=== PATIENT | female | born 1990 | race Caucasian/White ===

== ENCOUNTER → 2019-02-13 10:42 | Outpatient (CLI) | payer MEDICAID, SELFPAY ==
[2017-09-09 22:44] VITALS: BMI 16.8
== END ==
PROVIDERS: PCP Internal Medicine; Visit Provider Obstetrics & Gynecology
DX: R30.0 Dysuria (principal)
CPT/HCPCS: 87086

== ENCOUNTER → 2019-02-20 08:46 | Outpatient (CLI) | payer MEDICAID, SELFPAY ==
--- NOTE | 2019-02-20 08:48 | BI_ITS ---
MAMMOGRAPHY - BILATERAL DIAGNOSTIC REASON FOR EXAM: Female, 28 years old. Two-week history of right breast lumps. Tenderness. PERTINENT HISTORY: Non-contributory. TECHNIQUE: Digital bilateral breast jacqueline (3D mammographic acquisition) in the CC and MLO projections. 2-D mediolateral oblique (MLO) and craniocaudad (CC) views of both breasts were obtained. CAD: Full Field Digital Mammography with Computer Added Detection was performed. COMPARISON: None. Baseline examination. FINDINGS: Breast Composition: The breasts are extremely dense, which lowers the sensitivity of mammography. There is a 1.1 cm x 0.9 cm well-defined nodule in the central lateral aspect of the left breast. Correlation with ultrasound is recommended. With the patient's history of palpable abnormality in the right breast, correlation with ultrasound is recommended. No other significant abnormalities are identified. BI/DIAG MAMM W/CAD, BILAT IMPRESSION: 1.1 cm x 0.9 cm well-defined nodule in the central lateral aspect of the left breast. With the patient's history of palpable abnormalities in the right breast, correlation with bilateral breast ultrasound is recommended. ASSESSMENT CATEGORY: BIRADS Category 0: Incomplete. Need additional imaging evaluation. A letter regarding these results will be sent to the patient by the facility within 30 days. Approximately 10% of breast cancers are not detected by mammography. A normal mammogram should not delay biopsy of a clinically suspicious abnormality. Electronically Signed: Yao Corey, at 11:07 EDT , Service support ,
--- NOTE | 2019-02-20 08:49 | US_ITS ---
STUDY: ULTRASOUND BREAST - RIGHT REASON FOR EXAM: Female, 28 years old. 2 palpable nodules in the right breast. TECHNIQUE: Axial and longitudinal images of the RIGHT breast were performed with a high resolution ultrasound transducer. COMPARISON: Comparison is made with prior mammogram done earlier in the day as well as prior ultrasound the right breast dated October 22, 2014. FINDINGS: RIGHT Breast: The palpable abnormality corresponds to a 6 mm x 3 mm x 7 mm well-defined hypoechoic nodule in the superficial aspect of the breast at the 10:00 position at a thymus from the nipple. This may represent a small fibroadenoma. There is also evidence of a well-defined hypoechoic solid nodule measuring 4 mm x 5 mm x 3 mm at the 4:00 position the breast at 2 cm from the nipple. IMPRESSION: 6 mm x 7 mm x 3 mm well-defined hypoechoic nodule at the 10:00 position of the breast at 8 cm from nipple. Similar appearing nodule is seen at the 4:00 position of the breast at 2 cm from the nipple measuring 4 mm x 5 mm x 3 mm. A 4 month follow-up sonogram is recommended. ASSESSMENT CATEGORY: BIRADS Category 3: Probably Benign - Short-Interval Follow-up Suggested. A letter regarding these results will be sent to the patient by the facility within 30 days. Electronically Signed: Yao Corey, at 12:35 EDT , Service support , STUDY: ULTRASOUND BREAST - LEFT REASON FOR EXAM: Female, 28 years old. Abnormal screening mammogram. TECHNIQUE: Axial and longitudinal images of the LEFT breast were performed with a high resolution ultrasound transducer. COMPARISON: Comparison is made with prior mammogram done earlier in the day. FINDINGS: LEFT Breast: The mammographic abnormality corresponds to a 4 mm x 6 mm x 4 mm cyst at the 3:00 position of the breast at 3 cm from nipple. US/Breast Limited Unilateral IMPRESSION: 4 mm x 6 mm x 4 mm cyst at the 3:00 position of the breast at 3 cm from nipple. ASSESSMENT CATEGORY: BIRADS Category 2: Benign. A letter regarding these results will be sent to the patient by the facility within 30 days. Electronically Signed: Yao Corey, at 12:36 EDT , Service support ,
== END ==
PROVIDERS: Family Provider Internal Medicine; PCP Internal Medicine; Referring Provider Obstetrics & Gynecology; Visit Provider Obstetrics & Gynecology
DX: N63.14 Unspecified lump in the right breast, lower inner quadrant (principal); N63.11 Unspecified lump in the right breast, upper outer quadrant
CPT/HCPCS: 76642; 77062; 77066; G0279

== ENCOUNTER → 2019-05-28 | Outpatient (CLI) | payer MEDICAID, SELFPAY ==
[2019-05-28 17:15] LABS: Absolute Lymphocyte Count 1.59 X10^3/uL (0.83-4.51); Absolute Neutrophil Count 9.1 X10^3/uL (2.0-7.7); Basophil# 0.03 X10^3/uL; Basophil% 0.3 % (0-1); Eosinophil# 0.02 X10^3/uL; Eosinophils% 0.2 % (0-5); Hematocrit 41.1 % (37-47); Hemoglobin 13.6 g/dL (12.0-15.0); Lymphocyte # 1.59 X10^3/ul (4.0); Lymphocyte % 13.9 % (19-41); Mean Corp Hgb Conc 33.1 g/dL (32-36); Mean Corpuscular Hgb 31.9 pg (27.0-32.0); Mean Corpuscular Volume 96.3 fL (81-99); Monocyte# 0.63 X10^3/uL; Monocyte% 5.5 % (0-10); NRBC Flagged by Analyzer 0 % (0-5); Neutrophil # 9.11 X10^3/uL (2.7-7.7); Neutrophil % 79.7 % (47-70); Platelet Count 280 K/mm3 (150-450); RBC Distribution Width CV 12.6 % (11.6-14.6); RBC Distribution Width SD 44.2 fl (35.1-43.9); Red Blood Count 4.27 M/mm3 (4.2-5.4); White Blood Count 11.4 K/mm3 (4.4-11.0)
[2019-05-28 17:43] LABS: ALB/GLOB Ratio 1.3 RATIO (0.9-2.4); AST(SGOT) 14 U/L (15-37); Alanine Aminotransfer ALT/SGPT 17 U/L (13-56); Albumin, Serum 4.1 g/dL (3.2-5.0); Alkaline Phosphatase 58 U/L (45-117); Anion Gap 4 (5-15); BUN 20 mg/dL (7-18); BUN/Creat Ratio 24.4 RATIO (10-20); Calcium,Total 8.6 mg/dL (8.5-10.1); Chloride 103 mmol/L (98-107); Creatinine, Serum 0.82 mg/dL (0.55-1.02); EST Glomerular Filtration Rate 88 mL/min (>60); Est Glom Filt Rate - Afr Amer 107 mL/min (>60); Globulin 3.1 g/dL (2.2-4.2); Glucose 78 mg/dL (74-106); Potassium 3.7 mmol/L (3.5-5.1); Protein, Total 7.2 g/dL (6.4-8.2); Sodium Level 135 mmol/L (136-145); Thyroid Stim Hormone (TSH) 0.17 uIU/mL (0.358-3.74)
[2019-05-30 16:08] LABS: Endomysial Antibody IgA Negative (Negative)
[2019-05-31 13:23] LABS: Immunoglobulin A 153 mg/dL (87-352)
[2019-05-31 13:24] LABS: t-Transglutaminase IgA <2 U/mL (0-3)
== END | disposition home or self-care (01) ==
LOC: LAB 16:22 → LABSPEC 16:53
PROVIDERS: Visit Provider Obstetrics & Gynecology
DX: R53.83 Other fatigue (principal); R30.0 Dysuria
CPT/HCPCS: 36415; 80053; 82784; 83516; 84443; 85025; 86255; 87086; 87088

== ENCOUNTER → 2019-06-06 | Outpatient (CLI) | payer MEDICAID, SELFPAY ==
[2019-06-06 11:25] LABS: Free T3 2.9 pg/mL (2.18-3.98); T4 Free Direct 1.03 ng/dL (0.76-1.46)
== END | disposition home or self-care (01) ==
LOC: WOBLAB 10:12
PROVIDERS: Visit Provider Obstetrics & Gynecology
DX: E05.90 Thyrotoxicosis, unspecified without thyrotoxic crisis or storm (principal)
CPT/HCPCS: 36415; 84439; 84481

== ENCOUNTER 2019-06-27 09:17 | Emergency (ER) | payer MEDICAID, SELFPAY ==
[2019-06-27 09:19] VITALS: BP 130/83; PULSE 75; RESP 16; TEMP 36.3; O2SAT 100; BMI 17.5
--- NOTE | 2019-06-27 09:27 | RAD_ITS ---
STUDY: X-RAY RIGHT FOOT, MIDDLE TOE REASON FOR EXAM: Female, 29 years old. Pain following injury. TECHNIQUE: 3 view(s) of the toe were obtained. COMPARISON: None. FINDINGS: Normal visualized metatarsus. Normal metatarsophalangeal (M.T.P) joint. Normal interphalangeal joints. Normal phalanges and interphalangeal joints. The soft tissue structures are unremarkable. RAD/Toe(s) Min 2 Views IMPRESSION: Normal x-ray of the toe. Electronically Signed: Yao Corey, at 9:53 EDT , Service support ,
--- NOTE | 2019-06-27 09:28 | ED.DCSUM_ITS ---
- ER Visit Summary Date of Service: 06/27/19 Chief Complaint: Right toe injury History of Present Illness: The patient is a 29 F states that 5 days ago on Sunday she was intoxicated when she woke Sunday morning she had pain in her fourth and fifth toes on the right side. She states that she takes Percocet for abdominal pain and took her last pain pill this morning. Today she states when she woke up she had been john taping her toes and it hurt really bad when she went to take the tape off. She is wearing tennis shoes. She states the toe was purple earlier in the week Physical Examination: Afebrile vital signs stable There is tenderness palpation of the fourth and fifth toe with the fourth being greater than the fifth. There is no significant ecchymosis. No significant swelling. Neurovascular intact. No subungual hematoma. Test Results: X-rays of the toe were obtained. These were negative for fracture Emergency Department Course and Treatment: Patient will be given a postop shoe. She will follow-up with her doctor as needed. Would recommend anti- inflammatories. Impression: 1. Right fourth and fifth toe sprain This note was generated with [employer] dictation software. It may contain incorrect words, spelling, and punctuation that were not noted in review of the chart prior to signing ED Disposition - Plan for ED Patient: Disposition: Home or Assisted Living Instructions: Sprain Toe Referrals: Sailaja Samson MD [Primary Care Provider] - 10-14 Days if not better
[2019-06-27 10:27] VITALS: RESP 18
== END 2019-06-27 10:29 | disposition home or self-care (01) ==
PROVIDERS: Emergency Provider Emergency Medicine; Family Provider Internal Medicine; PCP Internal Medicine
DX: S93.504A Unspecified sprain of right lesser toe(s), initial encounter (principal); X58.XXXA Exposure to other specified factors, initial encounter; Y93.9 Activity, unspecified; Y92.9 Unspecified place or not applicable; N80.9 Endometriosis, unspecified; Z72.0 Tobacco use
CPT/HCPCS: 73660; 99283

== ENCOUNTER 2019-07-21 10:56 | Emergency (ER) | payer MEDICAID, SELFPAY ==
[2019-07-21 10:58] VITALS: BP 99/64; PULSE 85; RESP 16; TEMP 36.1; O2SAT 98; BMI 17.3
--- NOTE | 2019-07-21 11:01 | ED.RN ---
NOTED BRUISING ALL OVER PT INER THIGHS. 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
--- NOTE | 2019-07-21 11:25 | ED.RN ---
PT CRYING AND REPORTING THAT WAS JUST IN [facility] FOR [facility]HMA AFTER BEING AT A CONSTITUTION PARTY, DRINKING HEAVILY AND THEN SMOKING SOME MARIJUANA FROM PEOPLE THERE THAT SHE DIDNT KNOW HX OF RECENT EGD WITH GASTRITIS DX AND REPORTS THAT THINKS IS DEHYDRATED TODAY FROM DRINKING LAST NIGHT BUT WHEN ASKED WHERE WAS HAVING PAIN POINTS TO ENTIRE TRUNK AND STATED, IT FEELS LIKE MY CHEST IS EXPLODING STATED, ALLISON BEEN UNDER SO MUCH STRESS LATELY THAT HAVENT EATEN WELL AND JUST DRANK. NUMEROUS BRUISES TO INNER THIGHS B/L FROM POLE DANCING EXERCISE REGIMEN
[2019-07-21 11:34] VITALS: BP 120/76; PULSE 71; RESP 16; O2SAT 100
[2019-07-21 11:40] LABS: Absolute Lymphocyte Count 1.06 X10^3/uL (0.83-4.51); Basophil# 0.02 X10^3/uL; Basophil% 0.2 % (0-1); Eosinophil# 0.01 X10^3/uL; Eosinophils% 0.1 % (0-5); Hematocrit 43.9 % (37-47); Hemoglobin 14.8 g/dL (12.0-15.0); Lymphocyte # 1.06 X10^3/ul (4.0); Lymphocyte % 9.2 % (19-41); Mean Corp Hgb Conc 33.7 g/dL (32-36); Mean Corpuscular Hgb 32.5 pg (27.0-32.0); Mean Corpuscular Volume 96.5 fL (81-99); Mean Platelet Vol. 8.6 fl (6.2-12.0); Monocyte# 0.43 X10^3/uL; Monocyte% 3.7 % (0-10); NRBC Flagged by Analyzer 0 % (0-5); Neutrophil # 9.96 X10^3/uL (2.7-7.7); Neutrophil % 86.5 % (47-70); Platelet Count 308 K/mm3 (150-450); RBC Distribution Width CV 12.4 % (11.6-14.6); RBC Distribution Width SD 44.3 fl (35.1-43.9); Red Blood Count 4.55 M/mm3 (4.2-5.4); White Blood Count 11.5 K/mm3 (4.4-11.0)
[2019-07-21] MEDS: Ondansetron 4 MG/2 ML Vial IV (11:42)
[2019-07-21] MEDS: 0.9% Normal Saline 1,000 ML 1000 ML IV (11:43)
[2019-07-21] MEDS: Morphine 4 MG/ML Syringe IV (11:55)
--- NOTE | 2019-07-21 12:09 | ED.DCSUM_ITS ---
History of Present Illness Chief Complaint: Abd Pain Detail of Chief Complaint: With nausea and vomiting after drinking binge Informant: Patient Onset: Days - 3 days Context: Sudden Onset Timing: Continuous - Pain is constant and localized to epigastric and left upper quadrant, Intermittent - Nausea and vomiting is intermittent Quality: Pain Location: Predominantly epigastric and left upper quadrant Current Severity: Mild Maximum Severity: Moderate Worsened by: Consumption of food or liquids Relieved by: Nothing Associated Symptoms: Nausea and vomiting and orthostatic symptoms Narrative: Patient is a 29-year-old female states has been under significant stress because of pain bills, work and surgery to remove right ovary and appendix. 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 She states she had a constitution party last evening. She drank heavily again for the third day in a row and also smoked marijuana. She denies hematemesis. She denies black or maroon stool. She reports thirst, dry mouth and lightheadedness with standing. Patient denies history of food intolerance prior to the this episode and denies history of pancreatitis. She does report decreased urine output. Prior similar symptoms: No Recent Illness/Hospitalization: No - Past Medical History (1) Endometriosis determined by laparoscopy Status: Chronic (2) Pelvic pain Status: Chronic Past Medical History - Allergies and Home Meds Allergies/Adverse Reactions: Allergies No Known Allergies Allergy (Verified 06/27/19 09:18) Primary Care Physician: Sailaja Samson MD [Primary Care Provider] - Lives: Alone Smoking Status: Current some day smoker Alcohol: Heavy Drugs: Marijuana Review of Systems General: Reports: Malaise. Denies: Chills, Fever, Subjective, Sweats, Weight loss, - Eyes: Denies: Visual changes - bilaterally, Diplopia ENT: Denies: Rhinorrhea, Sore throat Cardiovascular: Denies: Chest pain, Palpitations Respiratory: Denies: Dyspnea, Cough, Dyspnea on exertion Gastrointestinal: Reports: Abdominal pain, Nausea, Vomiting. Denies: Diarrhea, Constipation, Melena, Hematochezia, -, - Genitourinary: Denies: Dysuria, Hematuria, Frequency Musculoskeletal: Denies: Myalgias, Arthralgias, Neck pain, Back pain, Swelling, Extremity Pain Skin: Denies: Rash, Wounds Neurological: Denies: Headache, Weakness, Numbness Hematologic: Denies: Easy bruising, Easy bleeding Allergy: Denies: Uticaria, Swelling of the mouth, Swelling of the tongue Physical Exam Vital Signs/Narrative: Vital Signs Temp Pulse Resp BP Pulse Ox 07/21/19 11:34 71 16 120/76 100 07/21/19 10:58 97 F L 85 16 99/64 98 Inital Vital Signs reviewed: Yes General: Well nourished, Well developed, No Acute Distress Head: Normocephalic, Atraumatic Eyes: Perrl, EOMI. Negative for: Pale conjunctiva, Scleral icterus, - ENT: No rhinorrhea, TM's clear, Dry mucous membranes Neck: Supple, Nontender, No lymphadenopathy, No JVD Cardiovascular: Regular rate, Regular rhythm, No murmurs, Normal S1, Normal S2 Respiratory: No distress, CTA bilaterally, Chest nontender Abdomen: Soft, Nondistended, Tender - Worse in the epigastric and left upper quadrant, Hypoactive bowel sounds. Negative for: Hepatomegaly, Splenomegaly, Mass Rectal: Deferred Back: Nontender, Normal Inspection Extremities: Nontender, No edema Skin: Normal color, No rash, No Trauma. Negative for: Cyanosis, Diaphoresis, Jaundice Neurological: Alert, Oriented x3, Cranial nerves II-XII grossly intact, Normal Strength, Normal Sensation. Negative for: Normal DTR Psychological: Depressed Diagnostic/Tx/Re-eval Laboratory Results 07/21/19 07/21/19 07/21/19 11:25 11:25 11:55 WBC 11.5 H RBC 4.55 Hgb 14.8 Hct 43.9 MCV 96.5 MCH 32.5 H MCHC 33.7 RDW Std Deviation 44.3 H RDW Coeff of Tru 12.4 Plt Count 308 MPV 8.6 Immature Gran % (Auto) 0.300 Neut % (Auto) 86.5 H Lymph % (Auto) 9.2 L Bosque % (Auto) 3.7 Eos % (Auto) 0.1 Baso % (Auto) 0.2 Absolute Neuts (auto) 10.0 H Absolute Lymphs (auto) 1.06 Nucleated RBC % 0 Sodium Cancelled Potassium Cancelled Chloride Cancelled Carbon Dioxide Cancelled Anion Gap Cancelled BUN Cancelled Creatinine Cancelled Estim Creat Clear Calc Cancelled Est GFR (MDRD) Af Amer Cancelled Est GFR (MDRD) Non-Af Cancelled BUN/Creatinine Ratio Cancelled Glucose Cancelled Calcium Cancelled Total Bilirubin Cancelled AST Cancelled ALT Cancelled Alkaline Phosphatase Cancelled Total Protein Cancelled Albumin Cancelled Globulin Cancelled Albumin/Globulin Ratio Cancelled Lipase Cancelled Ethyl Alcohol 10.0 07/21/19 13:05 WBC RBC Hgb Hct MCV MCH MCHC RDW Std Deviation RDW Coeff of Tru Plt Count MPV Immature Gran % (Auto) Neut % (Auto) Lymph % (Auto) Bosque % (Auto) Eos % (Auto) Baso % (Auto) Absolute Neuts (auto) Absolute Lymphs (auto) Nucleated RBC % Sodium 140 Potassium 4.0 Chloride 106 Carbon Dioxide 22.0 Anion Gap 12 BUN 16 Creatinine 0.63 Estim Creat Clear Calc 93.29 Est GFR (MDRD) Af Amer 145 Est GFR (MDRD) Non-Af 120 BUN/Creatinine Ratio 25.4 H Glucose 58 L Calcium 8.2 L Total Bilirubin 0.80 AST 49 H ALT 30 Alkaline Phosphatase 70 Total Protein 6.9 Albumin 3.8 Globulin 3.1 Albumin/Globulin Ratio 1.2 Lipase 35 L Ethyl Alcohol Work-up is unremarkable. There is no evidence of pancreatitis. Patient is improved after treatment and fluids. Will discharge with prescription for Zofran and Bentyl. - Medical Decision Making Based on patient's history and physical she is dehydrated. IV was established. Because of pain left upper quadrant after drinking and need to evaluate for pancreatitis. Appropriate labs were obtained to assess severity and to determine if patient is an inpatient or outpatient candidate. This may also be secondary to alcohol intoxication and illicit drug use. ED Disposition - Plan for ED Patient: Disposition: Home or Assisted Living Diagnosis: Acute abdominal pain in left upper quadrant, Nausea & vomiting, Mild dehydrat ion, Alcohol consumption binge drinking, Illicit drug use, Anxiety in acute stress reaction Instructions: VOMITING (6y-Adult), Zofran (Po) Prescriptions: Dicyclomine HCl [Bentyl] 20 mg PO TIDAC #20 cap Prescription Printed Ondansetron [Zofran Odt] 4 mg PO Q8H PRN PRN #10 tab PRN Reason: Nausea Prescription Printed Referrals: Sailaja Samson MD [Primary Care Provider] - As Needed
[2019-07-21 13:37] LABS: ALB/GLOB Ratio 1.2 RATIO (0.9-2.4); AST(SGOT) 49 U/L (15-37); Alanine Aminotransfer ALT/SGPT 30 U/L (13-56); Albumin, Serum 3.8 g/dL (3.2-5.0); Alkaline Phosphatase 70 U/L (45-117); Anion Gap 12 (5-15); BUN 16 mg/dL (7-18); BUN/Creat Ratio 25.4 RATIO (10-20); Calcium,Total 8.2 mg/dL (8.5-10.1); Chloride 106 mmol/L (98-107); Creatinine, Serum 0.63 mg/dL (0.55-1.02); EST Glomerular Filtration Rate 120 mL/min (>60); Est Glom Filt Rate - Afr Amer 145 mL/min (>60); Estimated Creatinine Clearance 93.29 ml/min; Globulin 3.1 g/dL (2.2-4.2); Glucose 58 mg/dL (74-106); Lipase 35 U/L (73-393); Protein, Total 6.9 g/dL (6.4-8.2); Sodium Level 140 mmol/L (136-145)
[2019-07-21 14:24] VITALS: BP 124/66; PULSE 59; RESP 16; O2SAT 98
== END 2019-07-21 14:26 | disposition home or self-care (01) ==
PROVIDERS: Emergency Provider Emergency Medicine; Family Provider Internal Medicine; PCP Internal Medicine
DX: E86.0 Dehydration (principal); R11.2 Nausea with vomiting, unspecified; R10.12 Left upper quadrant pain; F41.1 Generalized anxiety disorder; F43.0 Acute stress reaction; F17.200 Nicotine dependence, unspecified, uncomplicated
CPT/HCPCS: 80053; 80320; 83690; 85025; 96361; 96374; 96375; 99283; J7030; A4216; G0480; J2405

== ENCOUNTER 2019-08-04 08:00 | Day surgery (SDC) | payer MEDICAID, SELFPAY ==
[2019-07-30 15:15] VITALS: BMI 17.3
[2019-07-30 15:58] LABS: Hemoglobin 14.2 g/dL (12.0-15.0); Mean Corpuscular Hgb 32.3 pg (27.0-32.0); Mean Corpuscular Volume 97.7 fL (81-99); Mean Platelet Vol. 9.2 fl (6.2-12.0); Platelet Count 261 K/mm3 (150-450); RBC Distribution Width CV 12.2 % (11.6-14.6); RBC Distribution Width SD 44.4 fl (35.1-43.9); White Blood Count 5.5 K/mm3 (4.4-11.0)
[2019-07-30 16:10] LABS: International Normalized Ratio 1.1; Prothrombin Time (Protime)PT. 13.7 SECONDS (11.7-14.9)
[2019-07-30 16:17] LABS: Partial Thromboplast Time 31.1 Seconds (24.1-36.2)
[2019-07-30 16:20] LABS: Creatinine, Serum 0.82 mg/dL (0.55-1.02); EST Glomerular Filtration Rate 88 mL/min (>60); Est Glom Filt Rate - Afr Amer 106 mL/min (>60)
--- NOTE | 2019-08-03 19:05 | PCM.HP.BLA ---
History and Physical Date of Admission: 08/04/19 Surgical History and Physical Lanie Chao, a 29 year old female 1 0 1 0 1, presents for L/S RSO, YULIYA per [place] surgeon on August 04, 2019 at 9:30. -- Pelvic Pain, Severe Endometriosis -- pain more of right than left which began months ago. Lanie claims it started during normal activity and has been present several months. It occurs post coital. It is located in the lower abdomen.; It is located in the pelvis. Lanie characterizes the quality cramping.; Alnie characterizes the quality sharp. Severity is severe; It is aggravated by intercourse.; It is aggravated by menses. It is relieved by narcotics. Associated signs and symptoms are none. Additional comments are: had LAVH/LSO right salpingectomy; still has right ovary and appendix; prior L/S dx of endometriosis.; Additional comments are: pain helped for about a year after LAVH/LSO; Previous trial of Lupron helped but did not completely end pain. MEDICATIONS HISTORY: Patient is also takin. No Meds ALLERGIES: NKDA Infections - Chicken pox and Russian Measles Illnesses - Herpes , Endometriosis Accidents - no injuries of consequence Hospitalizations - surgery and Childbirth Arthritis Left Wrist, Scoliosis and MRSA R side face 09/2017; Review of Systems: GENERAL - Denies fever, or chills SKIN - Denies skin changes EYES - Denies visual changes EARS - Denies difficulty hearing NOSE - Denies nasal congestion or bleeding MOUTH - Denies sore throat or difficulty swallowing NECK - Denies pain or swelling RESPIRATORY - Denies shortness of breath or wheezing CARDIOVASCULAR - Denies palpitations or chest pain GASTROINTESTINAL - Denies nausea, vomiting, diarrhea, constipation GENITOURINARY - Denies dysuria, frequency of urination, incontinence of urine MUSCULOSKELETAL - Denies joint or muscle pain NEUROLOGICAL - Denies localized numbness or weakness PSYCHIATRIC - Denies depression or anxiety ENDOCRINE - Denies heat or cold intolerance, weight loss or gain HEMATO-IMMUNOLOGIC - Denies excessive bleeding with cuts SOCIAL HISTORY: Alcohol Use - RARELY Smoking - ! 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 Colon CA. Maternal Grandmother: Ovarian CA. Paternal Grandfather: Heart Disease and DM II. Maternal Aunt: Two Aunts -- Ovarian Ca. MENSTRUAL HISTORY: LMP Known?- Prior Hysterectomy, LMP - 10/12/16, Age Onset Menarche - 15 PAST PREGNANCIES: Total Pregnancies - 2; Full Term Pregnancies - 1; Premature - 0; Abortions, Induced - 1; Abortions, Spontaneous - 0; Ectopics - 0; Multiple Births - 0; Living Children - 1 SURGICAL HISTORY: 1. Tonsillectomy age 9 ; - 2. D and C, post EAB age 16, 2006 or 2007 ; - retained products of conception post EAB 3. tubes in ears x 3 ; - 4. adenoidectomy ; - 5. End of Left Thumb surgically removed, 02/2016 ; - infection from self-biting 6. 01/20/2015 dx laparoscopy, fulguration of endometriosis ; Dr Benjamín Lopez - 7. endoscopy 11/2016 ; - 8. 01/04/2017 dx Laparoscopy ; Dr Benjamín Lopez - 9. 12/23/2015 dx laparoscopy. LSO ; Dr Benjamín Lopez - 10. 04/04/2017 LAVH/right salpingectomy, fulguration of endometriosis ; Dr Benjamín Lopez - PHYSICAL EXAM BP- 102/70 Sitting, Right arm, regular cuff Weight- 102.25506 lbs Height- 63.75 inch BMI:17.68 CONSTITUTIONAL - NAD, well nourished, and well developed SKIN - No rash, lesions, or ulcers HEENT - Normocephalic, PERRLA, EOMI NECK - No nodes, no nuchal rigidity and thyroid normal size and texture LYMPH NODES - Palpation of lymph nodes in neck and groins within normal limits LUNGS - CTA x2 without wheezes, crackles or rales CARDIAC - Regular rate and rhythm without rubs, murmurs, or gallops ABDOMEN - no distention, no guarding, no hernia and pain to deep palpation >right than left and moderately severe; no rebound EXTREMITIES - No edema or calf tenderness NEUROLOGICAL - Cranial nerves II-XII grossly intact PSYCHIATRIC - A and O to time, place, person, mood and affect External Genitial Vagina - non-tender without lesions Urethra/Urethral Meatus - non-tender Bladder - non-tender Vagina - tender introitus and with minimal pressure on speculum exam--no inflammation wet prep with likely BV Cervix - surgically absent Uterus - surgically absent Adnexa - tender in right adnexa ASSESSMENT/PLAN: 1. Abdominal And Pelvic Pain, Endometriosis of pelvic peritoneum and Pelvic and perineal pain Discussed options for treatment and pt desires to proceed with L/S RSO and APPY. Discussed RBAs including possibility of not helping with pain or ovarian remnant syndrome. Also discussed need for senior care HRT. All questions answered.
--- NOTE | 2019-08-04 08:01 | PCM.HP.BLA ---
Problem List (1) RLQ abdominal pain Status: Acute History and Physical Date of Admission: 08/04/19 Intake Vital Signs 07/30/19 Body Mass Index (BMI) 17.3 07/30/19 Height 5 ft 3 in 07/30/19 Weight: 101 lb 2 oz 07/30/19 Body Mass Index (BMI) 17.9 07/30/19 Blood Pressure 106/70 07/30/19 Respiratory Rate 16 07/30/19 Pulse Rate 56 L 07/30/19 Pulse Source Monitor 07/30/19 Temperature 98.5 F 07/30/19 Temperature Source Oral 07/30/19 Pulse Ox 99 Intake Visit Reasons: Discuss Surgery 08/04 Stock Puller Required: No Accompanied by: Self Is patient in pain?: Yes (abdominal) Pain scale (1-10): 9 Allergies No Known Allergies Allergy (Verified 07/30/19 15:14) Medications Oxycodone HCl/Acetaminophen [Percocet 5/325] 1 tab PO BID PRN 06/27/19 [History Confirmed 07/30/19] PFSH Family History (Updated 07/30/19 @ 15:12 by Brenda Prater) Mother Asthma Arthritis Lung cancer Osteoporosis Thyroid disorder Social History (Updated 07/30/19 @ 15:18 by Ronni Silvestre MD) Smoking Status: Current some day smoker alcohol intake: current substance use type: does not use additional social history: no aspirin use no ibuprofen use HPI HPI HPI: SHRUTI LISA, is a 29 F who presents to the office today for HPI HPI Surgical H&P: Yes HPI: SHRUTI LISA, is a 29 F who presents to the office today for preoperative evaluation. Patient has a history of hysterectomy with preservation of the ovaries. She has been having right lower quadrant pain ever since. ROS General General: Yes fatigue; no weight change, appetite, colon cancer, breast cancer or weakness HEENT HEENT: No difficulty swallowing, eye injury, eye surgery, swollen glands or hoarseness Endo Endocrine: No thyroid disease, diabetes mellitus, thyroid cancer, Hair loss, heat intolerance or cold intolerance Skin Skin: No rash or changing moles Breast Breast: No left breast lump, right breast lump, nipple discharge, breast pain, abnormal mammogram, abnormal US or breast enlargement Musc Musculoskeletal: Yes back problems and arthritis; no rheumatoid arthritis, gout or joint pain Cardio Cardiovascular: No murmur, pacemaker, heart disease, atrial fibrillation, high blood pressure, heart attack, heart stent, palpitations, shortness of breat with exertion or chest pain Psych Psychiatric: Yes anxiety; no depression or hearing voices Resp Respiratory: Yes shortness of breath, No sleep apnea, No cough, No COPD, Yes asthma, No emphysema, No wheezing Gastro Gastrointestinal: Yes abdominal pain, Yes nausea or vomiting, No diarrhea, No constipation, No blood in stool, No acid reflux, No hemorrhoids, No ulcers, No gallbladder problem, No black,tarry stools Ivan Hematologic: No blood thinners, No blood disorders, No bleeding, No anemia, No blood clots Neuro Neurologic: No system reviewed and no additional complaints, except as docu, No as per HPI, No abnormal walking, No abnormal hearing, No abnormal movements, No abnormal speech, No behavioral changes, No burning sensations, No confusion, No seizure-like activity, No unsteadiness, No dizziness, No localized weakness, No frequent falls, No headache(s), No lack of coordination, No loss of vision, No memory loss, No numbness, No other visual disturbances, No radiating pain, No restless legs, No sensory deficit, No fainting, No tingling, No tremor(s), No weakness, No other Exam Const General: cooperative Orientation: alert, oriented x3 Chest Breast Palpation: No nipple discharge Resp Effort & Inspection: normal respiratory effort Auscultation: clear to auscultation bilaterally Cardio Rate: regular rate Rhythm: regular rhythm Heart Sounds: no murmurs GI Inspection: non-distended Palpation: soft, tender in the RLQ Assessment & Plan Problems 1. Right lower quadrant pain R10.31 Plan The patient has right lower quadrant pain. 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 Patient reports that she had problems with her appendix in the past and it was not removed. I discussed appendectomy with the patient including the risks of bleeding, infection, injury to surrounding organs. The patient would like to proceed at the same time as oophorectomy. Ronni Silvestre MD Pager: [facility] [address] [place] [address] [address] [place] [address] Office:
[2019-08-04 08:35] VITALS: BP 102/77; PULSE 75; RESP 16; TEMP 36.9; O2SAT 100; BMI 17.5
[2019-08-04] MEDS: Lactated Ringers 1,000 ML 100 ML IV ×2 (08:50→12:33)
--- NOTE | 2019-08-04 09:30 | APP_PTH ---
PATIENT: SHRUTI LISA LOC: [facility] [place] U#:[id number] AGE/SX: 29/F ROOM: RE08/04/[address]: Dr. Vikram Bustos MD : 1990 BED: DIS: 08/04/2019 SPEC #: [id number] RECD: 08/04/19 11:29 STATUS: SHELBY SIENA #: [id number] VLAERIE: 08/04/19 09:[address]: Vikram Bustos DEPT: SURGICAL PATHOLOGY RECD BY: Himanshu Rios ENTERED: 08/04/19 12:19 SP TYPE: APPENDIX OTHR DR: MD Dr. Sailaja He MD Tissues: A - Appendix, NOS B - Right ovary Procedures: Surgery Specimen Level III Surgery Specimen Level IV HEADER OPERATION: Laparoscopic salpingo-oophorectomy PRE-OP DIAGNOSIS: Pelvic pain; severe endometriosis TISSUE SUBMITTED: A - Appendix, B - Right fallopian tube and ovary MICROSCOPIC DIAGNOSIS A. Appendix, appendectomy: No evidence of appendicitis. B. Right ovary, oophorectomy: Hemorrhagic corpus luteal cysts, follicular cysts and corpora albicantia. See comment. AM:myles 08/05/19 COMMENT B. Fallopian tube is not present in the specimen. Clinical correlation is suggested. MICROSCOPIC DESCRIPTION Slides are reviewed. GROSS DESCRIPTION A - Received is one container labeled with the patient's name and designated appendix. The specimen consists of an appendix measuring 3 cm in length and up to 0.7 cm in diameter. No obvious perforation is identified. The lumen does not contain any fecalith. The entire specimen is submitted in one cassette. B - Received in fixative is one container labeled with the patient's name and designated right fallopian tube and ovary. The specimen consists of an ovary measuring 4 x 2 x 1.5 and weighing 9 gm. The outer surface is smooth without any papillation and is inked black. Serial sections reveal multiple cysts filled with clear to hemorrhagic fluid. The largest cyst measures 0.5 cm in greatest dimension. A corpus luteum is also noted measuring 1 cm in greatest dimension. Branch Specialist sections are submitted in three cassettes. / SJ:myles 08/04/19 TC:5 CPT: 29205, 01620
[2019-08-04] MEDS: Ropivacaine 0.5% 30 ML Vial (10:30)
--- NOTE | 2019-08-04 11:02 | OP.PCM_ITS ---
Report of Operation Date of Procedure: 08/04/19 Pre-Operative Diagnosis: Chronic Right Lower Quadrant Pain Post-Operative Diagnosis: Chronic Right Lower Quadrant Pain Surgery/Procedure Performed:: Laparoscopic Right Oophrectomy and Laparoscopic Appendectomy Description of Surgical Findings:: Normal appearing right ovary with evidence of prior hysterectomy, left salpingo- nephrectomy and right salpingectomy area. Appendix which was retroperitoneal and kinked. To be described in more detail per Dr. Silvestre with his operative report dictated separately. Type of Anesthesia:: General - Endotracheal Anesthesiologist: Merrill Cunningham Specimen's removed: Right ovary and appendix Estimated Blood Loss (mL): Minimal Fluids Replaced: Crystalloid Description of Procedure: Surgeon: Vikram Bustos MD, FACOG --right oophorectomy General Surgeon: Ronni Silvestre MD, FACS --appendectomy Indications: This is a 29 year old patient who has the above diagnosis. Her pain seems to be cyclic in nature but has been present for many years. She understands that if her right ovary is removed that she will need to be on hormone replacement therapy for quite some time as she had a previous hysterectomy and left oophorectomy. Procedure: The patient was taken to the operating room where after induction of general anesthesia, she was placed in the supine position and prepped and draped in the usual sterile fashion. The bladder was drained of approximately 50 cc of clear yellow urine with a catheter. Approximately 8 cc of half percent ropivacaine was injected supraumbilically, suprapubically and midway between. Varies needle was used to enter the peritoneal cavity per Dr. Carl. A 5 mm bladeless trocar was placed supraumbically and intraperitoneal placement confirmed. After CO2 insufflation was complete, a 5 mm bladeless trocar was introduced suprapubically. The above findings were noted. A 10/12 mm blade less port was then placed midway between these 2 ports. The appendectomy portion of the procedure was completed first. After this the infundibulopelvic ligaments were ligated with Enseal device and ovary removed with an Endobag through the 10 mm port. Closure was completed per Dr. Silvestre and is dictated separately. Patient tolerated procedure well was taken to recovery room in satisfactory condition sponge instrument and needle counts were all reportedly correct. Estimated blood loss for the case was minimal. There were no apparent complications of the surgery. Specimens to pathology was right ovary and appendix. Grafts/Implants Used: None - Complications None - Admit VTE Documentation VTE Present on Admission: Yes VTE Mechan Device Prophylaxis: SCD's
--- NOTE | 2019-08-04 11:10 | PCM.OPRPT ---
Problem List (1) RLQ abdominal pain Status: Acute Report of Operation Date of Procedure: 08/04/19 Pre-Operative Diagnosis: Right lower quadrant pain Post-Operative Diagnosis: Same Surgery/Procedure Performed:: Laparoscopic appendectomy Specimen's removed: Appendix Description of Procedure: The patient was brought back to the operating room and general anesthesia was induced. The patient had straight cath to void the bladder. Next the abdomen was prepped and draped in usual sterile fashion. An incision was made superior to the umbilicus and a Veress needle was placed into the abdomen. The drop test was performed and was normal. The abdomen was then insufflated to 15 mmHg. The Veress needle was removed and 5 mm port was placed into the abdomen. There was some scar tissue inferior to the umbilicus. A 5 mm port was placed under direct visualization in the suprapubic space. Enseal was used to take down the adhesions. Next the 10 mm port was placed inferior to the umbilicus. The right lower quadrant was inspected and the cecum was identified. The appendix appeared to be in a retrorectus retroperitoneal space. This was dissected free and the mesoappendix was taken down with Enseal. The base the appendix was then crossed with a 45 stapler and it was fired. The appendix was then placed into a bag and removed through the inferior umbilical incision. There was a small amount of bleeding from the staple line and 5 mm titanium clips were used to control this. Once hemostasis was obtained Dr. Bustos performed a lap scopic right oophorectomy. Please see his operative report for details. Once this was complete the abdomen was inspected in the right lower quadrant was inspected once more. Hemostasis was good. The ports were removed from the abdomen and the abdomen was allowed to desufflate. The fascia at the inferior 10 mm port was closed with a [id number] 0 Vicryl suture. The other incisions were anesthetized with lidocaine and the skin was closed with interrupted 4-0 Monocryl sutures and Steri-Strips and bandages. Patient tolerated the procedure well. - Admit VTE Documentation VTE Mechan Device Prophylaxis: SCD's
[2019-08-04 11:12] VITALS: BP 102/77; BP 115/83; PULSE 55; RESP 18; TEMP 36.8; O2SAT 99
[2019-08-04 11:20] VITALS: BP 102/77; BP 103/68; PULSE 47; RESP 16; O2SAT 99
[2019-08-04 11:30] VITALS: BP 102/77; BP 95/67; PULSE 52; RESP 18; O2SAT 100
--- NOTE | 2019-08-04 11:30 | DCINST_ITS ---
Discharge Diet: No Restrictions - Increase fluid intake for the next 48 hours. Discharge Activity: Return to Normal Activity, May Drive - when you are no longer taking pain/narcotic medicines., May Shower, May Take a Tub Bath - in 7 days. Additional Activity Instructions:: Ambulate often the next week after surgery. Nothing in the vagina for 5 days. Call your doctor if your incision/area has: Continuous Slow Oozing, Sudden Increased Bleeding, Increased Pain/ Swelling, Increased Redness, Foul Smelling Discharge Call your doctor if you observe: Fever of 101 or Higher, Inability to urinate, Inability to have a bowel movement Allergies/Adverse Reactions: Allergies No Known Allergies Allergy (Verified 08/04/19 08:27) Medications to take at Discharge Oxycodone HCl/Acetaminophen [Percocet 5/325] 1 tab PO BID PRN 06/27/19 Fluticasone/Vilanterol [Breo Ellipta 100-25 Mcg INH] 1 puff IH DAILY 08/04/19 Ondansetron [Ondansetron Odt] 4 mg PO Q6H PRN 08/04/19 Oxycodone HCl/Acetaminophen [Oxycodone-Acetaminophen 5-325] 1 ea PO Q6H PRN PRN 7 Days #10 tab 08/04/19 RX: Albuterol Inhaler [Ventolin Hfa] 2 puff IH 4X/DAY 08/04/19 RX: Estradiol 2 mg PO DAILY #100 tab 08/04/19 The following prescriptions were given: RX: Estradiol 2 mg PO DAILY #100 tab Prescription Printed Oxycodone HCl/Acetaminophen [Oxycodone-Acetaminophen 5-325] 1 ea PO Q6H PRN PRN 7 Days #10 tab PRN Reason: Severe Pain (-08/21) Prescription Printed Primary Care Physician: Sailaja Samson MD [Primary Care Provider] - Test Results: Test results from this visit will be discussed in further detail at your follow- up appointment, if applicable. Please Follow Up With: Vikram Bustos MD - [phone] When: 2 to 3 weeks
[2019-08-04 11:45] VITALS: BP 102/77; BP 90/67; PULSE 55; RESP 18; O2SAT 99
[2019-08-04 12:00] VITALS: BP 102/77; BP 90/63; PULSE 51; RESP 18; TEMP 36.8; O2SAT 97
[2019-08-04] MEDS: oxyCODONE 5 MG Tablet PO (12:47)
== END 2019-08-04 13:43 | disposition home or self-care (01) ==
LOC: SDC 08:01 → AC 08:02
PROVIDERS: Surgery; Family Provider Internal Medicine; PCP Internal Medicine; Referring Provider Obstetrics & Gynecology; Visit Provider Obstetrics & Gynecology
PROC: (CPT 58720; principal; 2019-08-04 09:10)
PROC: 0DTJ4ZZ Resection of Appendix, Percutaneous Endoscopic Approach (ICD-10-PCS; CPT 44970; 2019-08-04 09:10)
DX: N83.11 Corpus luteum cyst of right ovary (principal); N83.01 Follicular cyst of right ovary; N83.291 Other ovarian cyst, right side; N80.3 Endometriosis of pelvic peritoneum; J45.909 Unspecified asthma, uncomplicated; M41.9 Scoliosis, unspecified; M19.032 Primary osteoarthritis, left wrist; Z86.14 Personal history of Methicillin resistant Staphylococcus aureus infection; F17.200 Nicotine dependence, unspecified, uncomplicated
CPT/HCPCS: 44970; 58661; 36415; 82565; 85027; 85610; 85730; 86850; 86900; 86901; 88304; 88305; J7120; C1760; J2405

== ENCOUNTER 2020-09-25 13:47 | Emergency (ER) | payer MEDICAID, SELFPAY ==
[2020-09-25 13:48] VITALS: BP 129/71; PULSE 73; RESP 16; TEMP 36.4; O2SAT 98; BMI 16.5
[2020-09-25] MEDS: Ketorolac 30 MG/ML Syringe IM (14:12)
[2020-09-25] MEDS: dexAMETHasone 10 MG/ML Vial IM (14:12)
--- NOTE | 2020-09-25 14:12 | ED.VIS.GEN ---
History of Present Illness Chief Complaint: Cough Narrative: Patient is presenting with 1 week history of cough congestion fevers and generalized myalgias. She does have a history of asthma. No rash, no urinary symptoms no abdominal pain no neck pain or stiffness no headache or neurological symptoms. Currently she does not have any shortness of breath or chest pain. Review of systems: General: Generalized weakness and subjective fevers as in HPI Eyes: Denies: Visual changes - bilaterally ENT: No dry mouth, some upper airway congestion Cardiovascular: Denies: Chest pain, Palpitations Respiratory: Denies: Dyspnea, there is a cough but it is nonproductive Gastrointestinal: No Abdominal pain, Nausea, or vomiting Genitourinary: Denies: Dysuria Musculoskeletal: No edema. Generalized myalgias. Neurological: Denies: Headache, focal weakness Psych: Denies: Negative Hematologic: Denies: Easy bruising, Easy bleeding Physical exam General: Patient appears relatively well, she does not appear in significant distress. Head: Normocephalic, Atraumatic Eyes: Conjunctiva not pale ENT: Moist mucous membranes, some congestion Neck: Supple, Nontender, No lymphadenopathy Cardiovascular: Regular rate, Regular rhythm Respiratory: No distress, CTA bilaterally, speaking in full sentences without any respiratory distress Abdomen: Soft, Nontender, Nondistended Back: Nontender, Normal Inspection. Negative for: CVA tenderness Extremities: Nontender, No edema Skin: Normal color, No rash Neurological: Alert, Normal Strength, Normal Sensation Psychological: Normal affect Past Medical History - Allergies and Home Meds Allergies/Adverse Reactions: Allergies No Known Allergies Allergy (Verified 09/25/20 13:48) Primary Care Physician: Sailaja Samson MD [Primary Care Provider] - Past Medical History: - - Asthma Smoking Status: Current some day smoker Physical Exam Vital Signs/Narrative: Vital Signs Temp Pulse Resp BP Pulse Ox 09/25/20 13:48 97.6 F L 73 16 129/71 H 98 Diagnostic/Tx/Re-eval Chest X-Ray - ED: 1 View, Read by ED Physician, Normal, Heart, Lungs, Mediastinum, Bony Structures, No Acute Disease - Medical Decision Making Patient has an unremarkable chest x-ray however I am concerned about Covid. I will tell her to quarantine. She did receive Decadron in the emergency department she will be discharged in stable condition if she worsens she is to return she is encouraged to buy a pulse oximeter ED Disposition - Plan for ED Patient: Disposition: Home or Assisted Living Diagnosis: Upper respiratory disease Instructions: ED Upper Resp Infec No Abx Tx Referrals: Sailaja Samson MD [Primary Care Provider] - 3-5 Days
--- NOTE | 2020-09-25 14:20 | RAD_ITS ---
STUDY: X-RAY CHEST REASON FOR EXAM: Female, 30 years old. sob, fever, cough, MARQUEZ, fatigue TECHNIQUE: Frontal view of the chest COMPARISON: November 28 2016 FINDINGS: The lungs are clear and expanded. There is no demonstrated pleural abnormality. Normal size heart. Normal mediastinum and jared. Normal visualized pulmonary arteries. Normal visualized aortic arch and descending thoracic aorta. Normal visualized thoracic spine. Normal visualized ribs, clavicles, and shoulders. There is no demonstrated abnormality of the visualized soft tissue structures of the upper abdomen. RAD/Chest 1 View (Portable) IMPRESSION: Normal x-ray examination of the chest. Electronically Signed: Jacqueline Riley, at 14:53 EST Tel , Service support ,
[2020-09-25 14:47] VITALS: PULSE 70; RESP 16
== END 2020-09-25 14:52 | disposition home or self-care (01) ==
LOC: ED 14:51
PROVIDERS: Emergency Provider Emergency Medicine; PCP Internal Medicine
DX: J06.9 Acute upper respiratory infection, unspecified (principal); J45.909 Unspecified asthma, uncomplicated; F17.200 Nicotine dependence, unspecified, uncomplicated
CPT/HCPCS: 71045; 87635; 96372; 99282; U0003

== ENCOUNTER 2021-07-04 18:54 | Emergency (ER) | payer MEDICAID, SELFPAY ==
[2021-07-04 18:55] VITALS: BP 99/77; PULSE 118; RESP 18; TEMP 37.9; O2SAT 97; BMI 17.8
--- NOTE | 2021-07-04 19:28 | RAD_ITS ---
INDICATION: Fever, tachycardia, body aches EXAMINATION/TECHNIQUE: X-RAY - XR Chest 1 View COMPARISON: None. FINDINGS: The lungs are clear. Hyperinflated lungs. The cardiomediastinal silhouette is unremarkable. No pleural effusion or pneumothorax. No acute osseous abnormalities. RAD/Chest 1 View (Portable) IMPRESSION: No acute radiographic abnormalities. Hyperinflated lungs which can be seen in asthma. Electronically Signed: Norman Velasquez MD at 21:19 EDT Tel , Service support ,
--- NOTE | 2021-07-04 19:45 | EDS_ITS ---
HPI History of Present Illness Chief Complaint: Cold Sx Informant: patient Narrative Narrative: Patient is a 31-year-old previously healthy female who presents to the emergency department for body aches, fever, headache, runny nose. Her symptoms started yesterday with the body aches. She does not know of sick contacts but states she was at a family outing last weekend. She has not been taking anything for her symptoms. She had a Covid test obtained but has not gotten the results back from the urgent care before they referred her here. She denies any chest pain or shortness of breath. She not been coughing. No vomiting or diarrhea. She denies any urinary symptoms. No rashes. She has a history of hysterectomy. PFSH PFSH Home Medications albuterol sulfate 2 puff IH 4X/DAY 08/04/19 [History Last Taken Unknown] estradiol 2 mg PO DAILY #100 tab 08/04/19 [Rx Last Taken Unknown] fluticasone furoate-vilanterol 1 puff IH DAILY 08/04/19 [History Last Taken 08/04/19] methocarbamol 500 mg PO QHS 09/25/20 [History Last Taken Unknown] trazodone 50 mg PO QHS 09/25/20 [History Last Taken Unknown] cephalexin 500 mg PO BID 10 Days #20 cap 07/04/21 [Rx Last Taken Unknown] Allergy/AdvReac Type Severity Reaction Status Date / Time No Known Allergies Allergy Verified 07/04/21 18:57 Family History (Updated 07/30/19 @ 15:12 by Brenda Prater) Mother Asthma Arthritis Lung cancer Osteoporosis Thyroid disorder Surgical History (Updated 07/04/21 @ 20:03 by Mariana Schumacher) History of appendectomy History of hysterectomy History of tonsillectomy and adenoidectomy Social History Smoking Status: Current every day smoker tobacco type: cigarettes and e- cigarettes alcohol intake: current substance use type: does not use additional social history: no aspirin use no ibuprofen use ROS ROS ED Constitutional Constitutional ED: Reports chills and fever(s) Eyes Eyes: Denies change in vision ENT ENT ED: Reports rhinorrhea; Denies epistaxis Cardiovascular Cardiovascular: Denies chest pain or palpitations Respiratory/Chest Respiratory/Chest: Denies cough, dyspnea or dyspnea on exertion Gastrointestinal Gastrointestinal: Denies abdominal pain, diarrhea, nausea or vomiting Genitourinary Genitourinary ED: Denies dysuria, hematuria or urinary frequency Musculoskeletal Musculoskeletal: Reports myalgias; Denies back pain or neck pain Integumentary Denies rash Neurologic Neurologic: Reports headache(s); Denies dizziness or weakness EXAM Physical Exam Narrative Exam Narrative: Appears ill but nontoxic. Const Vital Signs: 07/04/21 18:55 07/04/21 20:02 07/04/21 20:26 Temperature 100.3 F H 100.6 F H Temperature Source Temporal Oral Pulse Rate 118 H 92 Respiratory Rate 18 16 16 Respiratory Effort Normal Respiratory Pattern Normal Blood Pressure 99/77 101/66 Blood Pressure Mean 84 77 Pulse Ox 97 96 Oxygen Delivery Method Room Air Room Air 07/04/21 21:35 Temperature 98.9 F Temperature Source Oral Pulse Rate 84 Respiratory Rate 16 Respiratory Effort Respiratory Pattern Blood Pressure 108/69 Blood Pressure Mean 82 Pulse Ox 99 Oxygen Delivery Method Room Air Positive well nourished and well developed General Appearance ED: well developed and NAD HEENT Reports normocephalic, head/scalp atraumatic and moist mucous membranes Eyes PERRL and EOMs intact bilaterally Neck supple General: Negative for tenderness Resp normal respiratory effort and clear to auscultation bilaterally Auscultation: Negative for rales, rhonchi or wheezes Cardio regular rhythm and no murmurs Rate: tachycardic GI normal to inspection, nondistended, normoactive bowel sounds and non-tender Palpation: soft; Negative for guarding or rebound tenderness present Extremity normal to inspection General Extremety ED: Negative for edema or tenderness General Extremity: Negative for edema Neuro no sensory deficits noted Sensorium / Orientation: alert Motor Exam: strength 5/5 throughout Psych mental status grossly normal Skin no rashes or lesions noted MDM MDM MDM Narrative Medical decision making narrative: Patient presents to the emergency department for fever, body aches, headache and rhinorrhea on arrival to the ED she is borderline febrile, tachycardic. She is nontoxic-appearing. Will check basic lab work including lactic acid and blood cultures. Covid swab being obtained. She is started on a low-dose of IV fluids as this potentially could be Covid and make her symptoms worse. She is given a dose of Tylenol. Patient's Covid swab was negative. X-ray was negative for acute cardiopulmonary abnormality. Urine was positive for infection. With treatment with Tylenol and Toradol as well as fluids her vital signs have returned to normal. She is no longer febrile. Her heart rate is now normalized. She is feeling much better. Her lactic acid is within normal limits. Since patient appears well we will treat her as an outpatient. Do not feel she requires inpatient IV antibiotics at this time. She is given the first dose of IV antibiotics. She is given a prescription for Keflex. She is to follow-up with her PCP. Return precautions are reviewed with her. She understands and is agreeable to plan. All questions were answered. Lab Data Labs: Laboratory Results - last 24 hr 07/04/21 07/04/21 07/04/21 19:53 19:53 19:53 WBC 9.2 RBC 4.18 L Hgb 12.8 Hct 37.1 MCV 88.8 MCH 30.6 MCHC 34.5 RDW Std Deviation 36.9 RDW Coeff of Tru 11.5 L Plt Count 226 MPV 9.2 Immature Gran % (Auto) 0.200 Neut % (Auto) 77.7 H Lymph % (Auto) 12.2 L [place] % (Auto) 9.6 Eos % (Auto) 0.1 Baso % (Auto) 0.2 Absolute Neuts (auto) 7.2 Absolute Lymphs (auto) 1.12 Nucleated RBC % 0 Sodium 137 Potassium 3.9 Chloride 105 Carbon Dioxide 27.0 Anion Gap 5 BUN 8 Creatinine 0.77 Estim Creat Clear Calc 77.07 Est GFR (MDRD) Af Amer 113 Est GFR (MDRD) Non-Af 93 BUN/Creatinine Ratio 10.4 Glucose 94 Lactic Acid 0.7 Calcium 9.3 Total Bilirubin 0.70 AST 12 L ALT 21 Alkaline Phosphatase 68 Total Protein 7.5 Albumin 3.8 Globulin 3.7 Albumin/Globulin Ratio 1.0 Urine Color Urine Clarity Urine pH Ur Specific [place] Urine Protein Urine Glucose (UA) Urine Ketones Urine Occult Blood Urine Nitrite Urine Bilirubin Urine Urobilinogen Ur Leukocyte Esterase Urine RBC Urine WBC Ur Squamous Epith Cells Urine Bacteria Urine Mucus 07/04/21 20:34 WBC RBC Hgb Hct MCV MCH MCHC RDW Std Deviation RDW Coeff of Tru Plt Count MPV Immature Gran % (Auto) Neut % (Auto) Lymph % (Auto) [place] % (Auto) Eos % (Auto) Baso % (Auto) Absolute Neuts (auto) Absolute Lymphs (auto) Nucleated RBC % Sodium Potassium Chloride Carbon Dioxide Anion Gap BUN Creatinine Estim Creat Clear Calc Est GFR (MDRD) Af Amer Est GFR (MDRD) Non-Af BUN/Creatinine Ratio Glucose Lactic Acid Calcium Total Bilirubin AST ALT Alkaline Phosphatase Total Protein Albumin Globulin Albumin/Globulin Ratio Urine Color Yellow Urine Clarity Sl. Cloudy Urine pH 6.0 Ur Specific [place] 1.010 Urine Protein 30 H Urine Glucose (UA) Normal Urine Ketones Negative Urine Occult Blood 50 H Urine Nitrite Positive H Urine Bilirubin Negative Urine Urobilinogen Normal Ur Leukocyte Esterase 500 H Urine RBC 0 SEEN Urine WBC 25-50 SEEN Ur Squamous Epith Cells 0-5 SEEN Urine Bacteria 1+ Urine Mucus 0 SEEN Radiography Diagnostic Testing: Radiology Impression Chest X-Ray 07/04/21 19:28 IMPRESSION: No acute radiographic abnormalities. Hyperinflated lungs which can be seen in asthma. Electronically Signed: Norman Velasquez MD at 21:19 EDT Tel , Service support , Discharge Plan Triage Chief Complaint: Cold Sx ED Provider: Lui Ruff Dx/Rx/DC Orders Clinical Impression: UTI (urinary tract infection), Fever Instructions: Urinary Tract Infections in Women, ED Fever Control (Adult) Prescriptions: New cephalexin 500 mg capsule 500 mg PO BID 10 Days Qty: 20 RF: 0 No Action albuterol sulfate 1 INHALER inhaler 2 puff IH 4X/DAY RF: 0 fluticasone furoate-vilanterol 1 EACH blister with device 1 puff IH DAILY RF: 0 estradiol 2 MG tablet 2 mg PO DAILY Qty: 100 RF: 4 methocarbamol 500 MG tablet 500 mg PO QHS RF: 0 trazodone 50 MG tablet 50 mg PO QHS RF: 0 Primary Care Provider: Sailaja Samson Referrals: Sailaja Samson MD [Primary Care Provider] - 3-5 Days Disposition Disposition: Home, Self Care
[2021-07-04] MEDS: Acetaminophen 325 MG Tablet 650 MG PO (19:55)
[2021-07-04 20:02] VITALS: RESP 16
[2021-07-04 20:14] LABS: Absolute Lymphocyte Count 1.12 X10^3/uL (0.83-4.51); Absolute Neutrophil Count 7.2 X10^3/uL (2.0-7.7); Basophil# 0.02 X10^3/uL; Basophil% 0.2 % (0-1); Eosinophil# 0.01 X10^3/uL; Eosinophils% 0.1 % (0-5); Hematocrit 37.1 % (37-47); Hemoglobin 12.8 g/dL (12.0-15.0); Lymphocyte # 1.12 X10^3/ul (0.83-4.51); Lymphocyte % 12.2 % (19-41); Mean Corp Hgb Conc 34.5 g/dL (32-36); Mean Corpuscular Hgb 30.6 pg (27.0-32.0); Mean Corpuscular Volume 88.8 fL (81-99); Mean Platelet Vol. 9.2 fl (6.2-12.0); Monocyte# 0.88 X10^3/uL; Monocyte% 9.6 % (0-10); NRBC Flagged by Analyzer 0 % (0-5); Neutrophil # 7.16 X10^3/uL (2.7-7.7); Neutrophil % 77.7 % (47-70); Platelet Count 226 K/mm3 (150-450); RBC Distribution Width CV 11.5 % (11.6-14.6); RBC Distribution Width SD 36.9 fl (35.1-43.9); Red Blood Count 4.18 M/mm3 (4.2-5.4); White Blood Count 9.2 K/mm3 (4.4-11.0)
[2021-07-04 20:26] VITALS: BP 101/66; PULSE 92; RESP 16; TEMP 38.1; O2SAT 96
[2021-07-04 20:28] LABS: Lactic Acid 0.7 mmol/L (0.4-1.9)
[2021-07-04 20:30] LABS: AST(SGOT) 12 U/L (15-37); Alanine Aminotransfer ALT/SGPT 21 U/L (13-56); Albumin, Serum 3.8 g/dL (3.2-5.0); Alkaline Phosphatase 68 U/L (45-117); Anion Gap 5 (5-15); BUN 8 mg/dL (7-18); BUN/Creat Ratio 10.4 RATIO (10-20); Calcium,Total 9.3 mg/dL (8.5-10.1); Chloride 105 mmol/L (98-107); Creatinine, Serum 0.77 mg/dL (0.55-1.02); EST Glomerular Filtration Rate 93 mL/min (>60); Est Glom Filt Rate - Afr Amer 113 mL/min (>60); Estimated Creatinine Clearance 77.07 ml/min; Globulin 3.7 g/dL (2.2-4.2); Glucose 94 mg/dL (74-106); Potassium 3.9 mmol/L (3.5-5.1); Protein, Total 7.5 g/dL (6.4-8.2); Sodium Level 137 mmol/L (136-145)
[2021-07-04] MEDS: Metoclopramide 10 MG/2 ML Vial 5 MG IV (20:30)
[2021-07-04] MEDS: Ketorolac 15 MG/ML Vial IV (20:31)
[2021-07-04 20:47] LABS: Color, Urine Yellow (Yellow); Glucose, Dipstick Normal (Normal); Ketone-Dipstick Negative (Negative); Leukocyte Esterase-Dipstick 500 /ul (Negative); Mucous, Urine 0 SEEN /hpf (<or=2+); Nitrite-Dipstick Positive (Negative); Occult Blood-Urine 50 /ul (Negative); Protein-Dipstick 30 mg/dl (Negative); Red Blood Cells-Urine 0 SEEN /hpf (0-5); Urine Bilirubin Dipstick Negative (Negative); Urine Clarity Sl. Cloudy (Clear); Urine Urobilinogen Normal (Normal)
[2021-07-04 20:56] LABS: Bacteria 1+ /hpf (None Seen); Squamous Epithelial Cells - UA 0-5 SEEN /hpf (5-10); White Blood Cells 25-50 SEEN /hpf (0-5)
[2021-07-04] MEDS: Ceftriaxone 1 GM/50 ML BAG IV (21:33)
[2021-07-04 21:35] VITALS: BP 108/69; PULSE 84; RESP 16; TEMP 37.2; O2SAT 99
[2021-07-04 22:14] VITALS: RESP 16
== END 2021-07-04 22:15 | disposition home or self-care (01) ==
PROVIDERS: Emergency Provider Emergency Medicine; PCP Internal Medicine
DX: N39.0 Urinary tract infection, site not specified (principal); R50.9 Fever, unspecified; F17.210 Nicotine dependence, cigarettes, uncomplicated
CPT/HCPCS: 71045; 80053; 81001; 83605; 85025; 87040; 87086; 87088; 87186; 87426; 96361; 96365; 96374; 96375; 99283; J7040; J7050; A4216

== ENCOUNTER 2022-01-26 11:10 | Observation (INO) | payer MEDICAID, SELFPAY ==
[2022-01-26] VITALS (15 sets, daily range): BP systolic 82–133; BP diastolic 51–105; PULSE 76–133; RESP 16–30; TEMP 36.6–39.6; O2SAT 94–99; BMI 19.8
--- NOTE | 2022-01-26 11:28 | EX.ED.DYSGE1 ---
HPI History of Present Illness Chief Complaint: Fever Informant: patient Onset/Context/Timing Onset: Yesterday Context: Gradual Onset Timing: Continuous Quality: Sharp Location: Left flank and left abdomen Worsened by: Nothing Relieved by: Nothing Narrative Narrative: Patient presents with fever and body aches that began yesterday. Patient states it came on gradually. Patient also admits to some pain in her left flank and left abdomen. Patient describes his pain is sharp. Patient states nothing makes it worse and nothing makes it better. Patient admits to nausea but denies any vomiting. Patient admits to some lightheadedness. Patient also admits to some general myalgias. Patient denies any dysuria or hematuria. Patient denies any diarrhea, melena, or hematochezia. PFSH PFSH Home Medications albuterol sulfate 2 puff IH 4X/DAY 08/04/19 [History Last Taken Unknown] estradiol 2 mg PO DAILY #100 tab 08/04/19 [Rx Last Taken Unknown] fluticasone furoate-vilanterol 1 puff IH DAILY 08/04/19 [History Last Taken 08/04/19] methocarbamol 500 mg PO QHS 09/25/20 [History Last Taken Unknown] trazodone 50 mg PO QHS 09/25/20 [History Last Taken Unknown] cephalexin 500 mg PO BID 10 Days #20 cap 07/04/21 [Rx Last Taken Unknown] Allergy/AdvReac Type Severity Reaction Status Date / Time No Known Allergies Allergy Verified 01/26/22 11:14 Family History (Updated 07/30/19 @ 15:12 by Brenda Prater) Mother Asthma Arthritis Lung cancer Osteoporosis Thyroid disorder Surgical History History of appendectomy History of hysterectomy History of tonsillectomy and adenoidectomy Social History Smoking Status: Current every day smoker tobacco type: cigarettes and e-cigarettes alcohol intake: current substance use type: does not use additional social history: no aspirin use no ibuprofen use ROS ROS ED Constitutional Constitutional ED: Reports fever(s); Denies chills Eyes Eyes: Reports blurry vision; Denies diplopia ENT ENT ED: Reports rhinorrhea; Denies sore throat Cardiovascular Cardiovascular: Denies chest pain or palpitations Respiratory/Chest Respiratory/Chest: Denies cough or dyspnea Gastrointestinal Gastrointestinal: Reports nausea; Denies vomiting Genitourinary Genitourinary ED: Denies dysuria or hematuria Musculoskeletal Musculoskeletal: Reports back pain and myalgias; Denies neck pain Integumentary Denies abscess or rash Neurologic Neurologic: Denies headache(s) or weakness Allergic/Immunologic Allergic/Immunologic ED: Denies mouth swelling or urticaria EXAM Physical Exam Const Vital Signs: 01/26/22 11:11 01/26/22 11:56 01/26/22 11:59 Temperature 102 F H 101.1 F H Temperature Source Temporal Temporal Pulse Rate 133 H 111 H 104 H Respiratory Rate 16 16 30 H Respiratory Effort Blood Pressure 105/56 L 100/74 Blood Pressure Mean 72 82 Pulse Ox 96 95 97 Oxygen Delivery Method Room Air Room Air Room Air 01/26/22 12:00 01/26/22 12:14 01/26/22 12:54 Temperature 101.1 F H 99.6 F H Temperature Source Temporal Temporal Pulse Rate 101 H 89 Respiratory Rate 22 H 22 H Respiratory Effort Normal Blood Pressure 84/57 L 83/53 L Blood Pressure Mean 66 63 Pulse Ox 94 95 Oxygen Delivery Method Room Air Room Air 01/26/22 13:13 01/26/22 14:05 Temperature 101.6 F H 101 F H Temperature Source Temporal Temporal Pulse Rate 99 89 Respiratory Rate 19 H 24 H Respiratory Effort Blood Pressure 84/55 L 92/64 Blood Pressure Mean 64 73 Pulse Ox 95 94 Oxygen Delivery Method Room Air Room Air Positive well nourished and well developed General Appearance ED: well developed HEENT Reports moist mucous membranes Neck supple and no JVD Resp normal respiratory effort and clear to auscultation bilaterally Cardio regular rate, regular rhythm and no murmurs GI normal to inspection, nondistended, normoactive bowel sounds Palpation: soft and tender LLQ and LUQ; Negative for guarding or rebound tenderness present Back/Spine General Back: CVA tenderness left Extremity normal to inspection General Extremety ED: Negative for edema or tenderness General Extremity: Negative for edema Neuro oriented x3, CN's II-XII intact bilaterally and no sensory deficits noted Sensorium / Orientation: alert Motor Exam: strength 5/5 throughout Psych mental status grossly normal Skin no rashes or lesions noted MDM MDM MDM Narrative Medical decision making narrative: Patient was given IV fluids and ibuprofen. Patient's heart rate improved after this. CBC shows leukocytosis of 16.0. There is a left shift. Comprehensive metabolic profile shows a slightly elevated creatinine of 1.09. Urinalysis shows leukocyte esterase of 500 with 25-50 white blood cells. There is 1+ bacteria. Urine cultures and blood cultures were ordered. Lactate was normal. Portable 1 view chest x-ray was obtained. On my interpretation, lung mckeon are clear. There is normal cardiac silhouette. Bony thorax is normal. There is no acute process noted. Radiologist also interpreted the x-ray and agrees. CT scan of the abdomen and pelvis was obtained. There are pelvis. There is no ureteral calculus or hydronephrosis. There is no hydroureter. Patient was started on Rocephin. Patient's fever went back up to 101. Patient was given a dose of Tylenol. Patient was given a dose of morphine and Zofran as well. Case was discussed with the hospitalist. He will admit the patient to his service. Patient understood and was agreeable with the plan. All questions were answered. Lab Data Attestation: I reviewed the patient's lab results. Labs: Laboratory Results - last 24 hr 01/26/22 01/26/22 01/26/22 11:45 11:53 11:53 WBC 16.0 H RBC 4.75 Hgb 14.5 Hct 42.3 MCV 89.1 MCH 30.5 MCHC 34.3 RDW Std Deviation 41.9 RDW Coeff of Tru 12.8 Plt Count 234 MPV 9.3 Immature Gran % (Auto) 1.400 H Neut % (Auto) 88.5 H Lymph % (Auto) 4.7 L Thomas % (Auto) 5.3 Eos % (Auto) 0.0 Baso % (Auto) 0.1 Absolute Neuts (auto) 14.2 H Absolute Lymphs (auto) 0.75 L Nucleated RBC % 0 Sodium 133 L Potassium 3.8 Chloride 100 Carbon Dioxide 28.0 Anion Gap 5 BUN 14 Creatinine 1.09 H Estim Creat Clear Calc 61.07 Est GFR (MDRD) Af Amer 76 Est GFR (MDRD) Non-Af 62 BUN/Creatinine Ratio 12.8 Glucose 104 Lactic Acid Calcium 9.4 Total Bilirubin 0.70 AST 16 ALT 40 Alkaline Phosphatase 102 Total Protein 8.3 H Albumin 4.1 Globulin 4.2 Albumin/Globulin Ratio 1.0 Urine Color Yellow Urine Clarity Sl. Cloudy Urine pH 6.0 Ur Specific [place] 1.015 Urine Protein 100 H Urine Glucose (UA) Normal Urine Ketones 5 H Urine Occult Blood 25 H Urine Nitrite Negative Urine Bilirubin Negative Urine Urobilinogen Normal Ur Leukocyte Esterase 500 H Urine RBC 0-5 SEEN Urine WBC 25-50 SEEN Ur Squamous Epith Cells 0-5 SEEN Urine Bacteria 1+ Urine Mucus 0 SEEN 01/26/22 11:53 WBC RBC Hgb Hct MCV MCH MCHC RDW Std Deviation RDW Coeff of Tru Plt Count MPV Immature Gran % (Auto) Neut % (Auto) Lymph % (Auto) Thomas % (Auto) Eos % (Auto) Baso % (Auto) Absolute Neuts (auto) Absolute Lymphs (auto) Nucleated RBC % Sodium Potassium Chloride Carbon Dioxide Anion Gap BUN Creatinine Estim Creat Clear Calc Est GFR (MDRD) Af Amer Est GFR (MDRD) Non-Af BUN/Creatinine Ratio Glucose Lactic Acid 1.4 Calcium Total Bilirubin AST ALT Alkaline Phosphatase Total Protein Albumin Globulin Albumin/Globulin Ratio Urine Color Urine Clarity Urine pH Ur Specific [place] Urine Protein Urine Glucose (UA) Urine Ketones Urine Occult Blood Urine Nitrite Urine Bilirubin Urine Urobilinogen Ur Leukocyte Esterase Urine RBC Urine WBC Ur Squamous Epith Cells Urine Bacteria Urine Mucus Radiography Chest X-Ray - ED: 1 View, Read by ED Physician, Read by Radiologist and Normal Diagnostic Testing: Clinical Impression(s) from Imaging Studies Chest X-Ray 01/26/22 12:10 IMPRESSION: No radiographic evidence of acute cardiopulmonary disease. at 1222 Reported and signed by: Kedar Nair MD Electronically Signed: Kedar Nair MD at 12:21 EDT , Abdomen/Pelvis CT 01/26/22 13:32 IMPRESSION: Borderline prominence of the left renal pelvis. There is no ureteral stone hydronephrosis. There is a nonobstructing calyceal stone in the left kidney. Individualized dose optimization techniques were used for this CT. at 1351 Reported and signed by: Kedar Nair MD Electronically Signed: Kedar Nair MD at 13:50 EDT Reading Location ID and State: [address] [place] [address] Tel , Service support , Discharge Plan Triage Chief Complaint: Fever Other Complaint: Flank Pain ED Provider: Lukas Medina Dx/Rx/DC Orders Clinical Impression: Pyelonephritis of left kidney, Dehydration Prescriptions: No Action albuterol sulfate 1 INHALER inhaler 2 puff IH 4X/DAY RF: 0 fluticasone furoate-vilanterol 1 EACH blister with device 1 puff IH DAILY RF: 0 estradiol 2 MG tablet 2 mg PO DAILY Qty: 100 RF: 4 methocarbamol 500 MG tablet 500 mg PO QHS RF: 0 trazodone 50 MG tablet 50 mg PO QHS RF: 0 cephalexin 500 mg capsule 500 mg PO BID 10 Days Qty: 20 RF: 0 Primary Care Provider: Sailaja Samson Referrals: Sailaja Samson MD [Primary Care Provider] - Disposition Disposition: Acute Care [facility]
[2022-01-26] MEDS: Ondansetron 4 MG/2 ML Vial IV (11:54)
[2022-01-26] MEDS: 0.9% Normal Saline 1,000 ML 1000 ML IV ×2 (11:54→14:16)
[2022-01-26] MEDS: Ibuprofen 600 MG Tablet PO (11:55)
[2022-01-26 11:58] LABS: Mucous, Urine 0 SEEN /hpf (<or=2+)
[2022-01-26 12:00] LABS: Color, Urine Yellow (Yellow); Glucose, Dipstick Normal (Normal); Ketone-Dipstick 5 mg/dl (Negative); Leukocyte Esterase-Dipstick 500 /ul (Negative); Nitrite-Dipstick Negative (Negative); Occult Blood-Urine 25 /ul (Negative); Protein-Dipstick 100 mg/dl (Negative); Specific Gravity, Urine 1.015 (1.002-1.030); Urine Bilirubin Dipstick Negative (Negative); Urine Clarity Sl. Cloudy (Clear); Urine Urobilinogen Normal (Normal)
[2022-01-26 12:07] LABS: Bacteria 1+ /hpf (None Seen); Red Blood Cells-Urine 0-5 SEEN /hpf (0-5); Squamous Epithelial Cells - UA 0-5 SEEN /hpf (5-10); White Blood Cells 25-50 SEEN /hpf (0-5)
--- NOTE | 2022-01-26 12:10 | RAD_ITS ---
EXAM: XR CHEST, 1 VIEW : 1990 CLINICAL INDICATION: Fever TECHNIQUE: Frontal view of the chest. This report was created using [employer] report generation technology. COMPARISON: 07/04/2021 FINDINGS: LUNGS AND PLEURAL SPACES: Unremarkable. No consolidation or edema. No pneumothorax. No effusion. HEART: Unremarkable. Cardiac silhouette not enlarged. MEDIASTINUM: Central airways and mediastinal contour are unremarkable. BONES/JOINTS: Unremarkable. SOFT TISSUES: Unremarkable. RAD/Chest 1 View (Portable) IMPRESSION: No radiographic evidence of acute cardiopulmonary disease. at 1222 Reported and signed by: Kedar Nair MD Electronically Signed: Kedar Nair MD at 12:21 EDT ,
[2022-01-26 12:18] LABS: Absolute Lymphocyte Count 0.75 X10^3/uL (0.83-4.51); Absolute Neutrophil Count 14.2 X10^3/uL (2.0-7.7); Basophil# 0.02 X10^3/uL; Basophil% 0.1 % (0-1); Hematocrit 42.3 % (37-47); Hemoglobin 14.5 g/dL (12.0-15.0); Lymphocyte # 0.75 X10^3/ul (0.83-4.51); Lymphocyte % 4.7 % (19-41); Mean Corp Hgb Conc 34.3 g/dL (32-36); Mean Corpuscular Hgb 30.5 pg (27.0-32.0); Mean Corpuscular Volume 89.1 fL (81-99); Mean Platelet Vol. 9.3 fl (6.2-12.0); Monocyte# 0.85 X10^3/uL; Monocyte% 5.3 % (0-10); NRBC Flagged by Analyzer 0 % (0-5); Neutrophil # 14.17 X10^3/uL (2.7-7.7); Neutrophil % 88.5 % (47-70); Platelet Count 234 K/mm3 (150-450); RBC Distribution Width CV 12.8 % (11.6-14.6); RBC Distribution Width SD 41.9 fl (35.1-43.9); Red Blood Count 4.75 M/mm3 (4.2-5.4)
[2022-01-26 12:33] LABS: AST(SGOT) 16 U/L (15-37); Alanine Aminotransfer ALT/SGPT 40 U/L (13-56); Albumin, Serum 4.1 g/dL (3.2-5.0); Alkaline Phosphatase 102 U/L (45-117); Anion Gap 5 (5-15); BUN 14 mg/dL (7-18); BUN/Creat Ratio 12.8 RATIO (10-20); Calcium,Total 9.4 mg/dL (8.5-10.1); Chloride 100 mmol/L (98-107); Creatinine, Serum 1.09 mg/dL (0.55-1.02); EST Glomerular Filtration Rate 62 mL/min (>60); Est Glom Filt Rate - Afr Amer 76 mL/min (>60); Estimated Creatinine Clearance 61.07 ml/min; Globulin 4.2 g/dL (2.2-4.2); Glucose 104 mg/dL (74-106); Potassium 3.8 mmol/L (3.5-5.1); Protein, Total 8.3 g/dL (6.4-8.2); Sodium Level 133 mmol/L (136-145)
[2022-01-26 12:47] LABS: Lactic Acid 1.4 mmol/L (0.4-1.9)
[2022-01-26] MEDS: Ceftriaxone 1 GM/50 ML BAG IV (12:58)
[2022-01-26] MEDS: Morphine 4 MG/ML Syringe IV (13:20)
[2022-01-26] MEDS: Acetaminophen 500 MG Tablet 1000 MG PO (13:20)
--- NOTE | 2022-01-26 13:32 | CT_ITS ---
EXAM: CT ABDOMEN AND PELVIS WITHOUT INTRAVENOUS CONTRAST : 1990 CLINICAL INDICATION: Left flank pain TECHNIQUE: Helically acquired images were obtained of the abdomen and pelvis without intravenous contrast. This CT exam was performed using one or more of the following dose reduction techniques: automated exposure control, adjustment of the mA and/or kV according to patient size, and/or use of iterative reconstruction technique. This report was created using [employer] report generation technology. COMPARISON: 11/24/2016 FINDINGS: LOWER THORAX: Unremarkable. Lung bases are clear. No cardiomegaly. No significant pericardial effusion. ABDOMEN: LIVER: Unremarkable. Homogeneous. GALLBLADDER AND BILE DUCTS: Unremarkable. No calcified gallstones. No gallbladder distention or wall edema. No intra- or extrahepatic biliary ductal dilation. PANCREAS: Unremarkable. No focal cystic mass. SPLEEN: Unremarkable. Normal size without focal cystic or solid mass. ADRENALS: Unremarkable. No nodules. KIDNEYS AND URETERS: There is borderline prominence of the left renal pelvis. There is a tiny nonobstructive calyceal stone in the left lower pole calyx. There is no ureteral calcification identified. STOMACH AND BOWEL: Unremarkable. No stomach or bowel distention. No focal inflammatory change. PELVIS: APPENDIX: No evidence of acute appendicitis. BLADDER: Unremarkable. REPRODUCTIVE: Unremarkable as visualized. No mass. ABDOMEN and PELVIS: INTRAPERITONEAL SPACE: Unremarkable. No ascites or other fluid collection. No free air. BONES/JOINTS: Unremarkable. No suspicious lytic or blastic abnormality. SOFT TISSUES: Unremarkable. No discrete abdominal or pelvic wall hernia. VASCULATURE: Unremarkable. Abdominal aorta is non-dilated. LYMPH NODES: Unremarkable. No enlarged lymph nodes. CT/Abdomen/Pelvis without Cont IMPRESSION: Borderline prominence of the left renal pelvis. There is no ureteral stone hydronephrosis. There is a nonobstructing calyceal stone in the left kidney. Individualized dose optimization techniques were used for this CT. at 1351 Reported and signed by: Kedar Nair MD Electronically Signed: Kedar Nair MD at 13:50 EDT ,
--- NOTE | 2022-01-26 14:05 | EKG12_ITS ---
Test Reason : CP Blood Pressure : / mmHG Vent. Rate : 083 BPM Atrial Rate : 083 BPM P-R Int : 144 ms QRS Dur : 080 ms QT Int : 372 ms P-R-T Axes : 028 076 050 degrees QTc Int : 437 ms Normal sinus rhythm Normal ECG When compared with ECG of 24-NOV-2016 18:19, Nonspecific T wave abnormality now evident in Inferior leads Nonspecific T wave abnormality now evident in Anterior leads Confirmed by ZENA MAURO, BATSHEVA ([id number]), non linear editor MARY RAIN ([id number]) on 01/31/2022 10:44:16 AM Referred By: KARLI Confirmed By:BATSHEVA FREITAS MD
--- NOTE | 2022-01-26 15:20 | CASEMGMT ---
KWABENA BOSTON Assessment: RN CM to room to meet with patient for initial transition planning/care coordination assessment. RN LUDY introduced self and role at [facility]. Patient voices understanding and consents to assessment at this time. No visitors present at bedside. Patient is alert and oriented and answers all questions appropriately. Sitting up on ER cart in no apparent distress. Care providers, pharmacy, and demographics verified/updated at this time. Admitting Dx: Pyelonephritis, dehydration PCP: Sailaja Samson Specialists: Denies Preferred [facility] Pres[facility] Benefit: yes Living Will/HPOA: Patient denies having a living will or HPOA. LNOK: Mother Joceline Chao and father Hong Chao Living Arrangements: Patient lives with 11-year-old son in second floor apartment with 15-20 steps to enter the home. Patient states independent with ADLs prior to hospitalization. Patient is currently unemployed. Smoking/ETOH: Former smoker, currently vapes, admits to ETOH use every couple of weeks Transportation: Patient drives self and denies transportation concerns. DME/HHC/SNF: Patient denies having any DME in the home. Denies need for DME at this time. Denies previous HHC of SNF stays. Patient has no concerns with going home at time of discharge. CM to follow for any discharge planning/needs. Patient voices no concerns/needs at this time. Advised patient to ask for CM if any questions/concerns/needs arise. Voices understanding. Plan: home
--- NOTE | 2022-01-26 15:31 | HP.PCM.HOS_ITS ---
HPI - General General Date of Admission: 01/26/22 Date of Service: 01/26/22 Chief Complaint: Fever, malaise, left flank pain HPI Narrative SHRUTI LISA, is a 31 F who presents to the emergency room at [facility] with a chief complaint of malaise, fever, and left flank pain which started yesterday and has increased today. Patient denies any cough or shortness of breath. Patient complains of nausea but has had no vomiting. Vital signs in the emergency room revealed the patient to have a temperature of 102 orally, blood pressure initially was 105/56 but then dropped to 83/53, she was given IV fluids and labs were obtained, white blood cell count was elevated at 16,000, patient's chemistry profile was remarkable for sodium of 133, creatinine was 1.09, and urinalysis indicated the patient had a urinary tract infection with white blood cell count in the urine 25-50 and +1 bacteria. Patient's chest x-ray was unremarkable, patient's abdominal and pelvic CT revealed borderline prominence of the left renal pelvis, there was no ureteral stone or hydronephrosis noted to be present, there is a nonobstructing stone in the left kidney. Patient was given IV antibiotics. Patient will be admitted to [facility] for pyelonephritis, she will be given IV fluids and be maintained on IV Rocephin. Patient will be seen in consultation by urology due to her left kidney stone. PFSH Home Medications acetaminophen 1,000 mg PO Q6H PRN 01/26/22 [History Last Taken 01/26/22] ibuprofen [Children's Motrin] 150 mg PO Q6H 01/26/22 [History Last Taken 01/26/22] Allergy/AdvReac Type Severity Reaction Status Date / Time No Known Allergies Allergy Verified 01/26/22 11:14 Family History (Updated 07/30/19 @ 15:12 by Brenda Prater) Mother Asthma Arthritis Lung cancer Osteoporosis Thyroid disorder Surgical History History of appendectomy History of hysterectomy History of tonsillectomy and adenoidectomy Social History Smoking Status: Current every day smoker tobacco type: cigarettes and e- cigarettes alcohol intake: current substance use type: does not use additional social history: no aspirin use no ibuprofen use ROS Constitutional Constitutional: Reports fever(s) and malaise; Denies anorexia, change in weight, night sweats or weakness Eyes Eyes: Denies blurry vision, change in vision, discharge from eye(s) or eye pain Cardiovascular Cardiovascular: Denies chest pain, claudication, dyspnea on exertion, edema, lightheadedness or palpitations Respiratory/Chest Respiratory/Chest: Denies cough, dyspnea, hemoptysis, shortness of breath at rest or shortness of breath with exertion Gastrointestinal Gastrointestinal: Denies abdominal pain, constipation, diarrhea, hematemesis, he matochezia, melena, nausea or vomiting Genitourinary Genitourinary: Reports other Details: Left flank pain ; Denies difficulty urinating, dysuria, hematuria, nocturia, urinary frequency, urinary hesitancy, urinary incontinence or urinary urgency Musculoskeletal Musculoskeletal: Denies back pain, joint pain, joint stiffness, joint swelling, myalgias or neck pain Neurologic Neurologic: Denies abnormal gait, abnormal speech, confusion, dizziness, focal weakness, headache(s), loss of vision, numbness, other visual disturbances, par esthesias, syncope or tingling Psychiatric Psychiatric: Denies anxiety, cognitive impairment, depression, irritability, mood swings or suicidal ideation Endocrine Endocrinology: Denies change in body appearance, cold intolerance, excessive sweating, heat intolerance, polydipsia or polyuria Hematologic/Lymphatic Hematologic/Lymphatic: Denies none, anemia, easy bleeding, easy bruising or lymphadenopathy Allergic/Immunologic Allergic/Immunologic: Denies rhinitis, urticaria, eczemia or asthma Vital Signs Vital Signs Vital Signs: 01/26/22 11:11 01/26/22 11:56 01/26/22 11:59 Temperature 102 F H 101.1 F H Temperature Source Temporal Temporal Pulse Rate 133 H 111 H 104 H Respiratory Rate 16 16 30 H Respiratory Effort Blood Pressure 105/56 L 100/74 Blood Pressure Mean 72 82 Pulse Ox 96 95 97 Oxygen Delivery Method Room Air Room Air Room Air 01/26/22 12:00 01/26/22 12:14 01/26/22 12:54 Temperature 101.1 F H 99.6 F H Temperature Source Temporal Temporal Pulse Rate 101 H 89 Respiratory Rate 22 H 22 H Respiratory Effort Normal Blood Pressure 84/57 L 83/53 L Blood Pressure Mean 66 63 Pulse Ox 94 95 Oxygen Delivery Method Room Air Room Air 01/26/22 13:13 01/26/22 14:05 01/26/22 15:05 Temperature 101.6 F H 101 F H 97.9 F Temperature Source Temporal Temporal Temporal Pulse Rate 99 89 88 Respiratory Rate 19 H 24 H 19 H Respiratory Effort Blood Pressure 84/55 L 92/64 96/62 Blood Pressure Mean 64 73 73 Pulse Ox 95 94 Oxygen Delivery Method Room Air Room Air Room Air Weight Weight: 51.256 kg Body Mass Index (BMI) 20.0 Physical Exam Const alert, oriented x3, no apparent distress and healthy appearing Constitutional Narrative: Patient has left flank pain on percussion of the left kidney on examination General Appearance: cooperative, well kempt and well developed Orientation / Consciousness: awake, oriented to person, oriented to place and oriented to time HEENT normocephalic, head/scalp atraumatic, hearing grossly normal bilaterally and moist oral mucous membranes Eyes PERRL, EOMs intact bilaterally and conjunctivae normal Neck nuchal rigidity, supple, no JVD, thyroid normal and no carotid bruits General: trachea midline Resp normal respiratory effort, no retractions, no use of accessory muscles and clear to auscultation bilaterally Auscultation: Negative for rales, rhonchi or wheezes Cardio regular rate, regular rhythm, S1 normal heart sound, S2 normal heart sound, no murmurs, no rub and no gallops GI normal to inspection, nondistended, normoactive bowel sounds, soft to palpation, non-tender and non-distended Extremity no clubbing, cyanosis or edema Skin no rashes or lesions noted and no wounds General Skin Exam: no breakdown Neuro oriented x3, CN's II-XII intact bilaterally, no focal motor deficits and no sensory deficits noted Sensorium / Orientation: awake and alert Speech: speech normal Psych affect normal Results Lab / Micro Data Result Diagrams: 01/26/22 11:53 01/26/22 11:53 Labs: Laboratory Results - last 24 hr 01/26/22 11:45: Urine Color Yellow, Urine Clarity Sl. Cloudy, Urine pH 6.0, Ur Specific [place] 1.015, Urine Protein 100 H, Urine Glucose (UA) Normal, Urine Ketones 5 H, Urine Occult Blood 25 H, Urine Nitrite Negative, Urine Bilirubin Negative, Urine Urobilinogen Normal, Ur Leukocyte Esterase 500 H, Urine RBC 0-5 SEEN, Urine WBC 25-50 SEEN, Ur Squamous Epith Cells 0-5 SEEN, Urine Bacteria 1+, Urine Mucus 0 SEEN 01/26/22 11:53: WBC 16.0 H, RBC 4.75, Hgb 14.5, Hct 42.3, MCV 89.1, MCH 30.5, MCHC 34.3, RDW Std Deviation 41.9, RDW Coeff of Tru 12.8, Plt Count 234, MPV 9.3, Immature Gran % (Auto) 1.400 H, Neut % (Auto) 88.5 H, Lymph % (Auto) 4.7 L, [place] % (Auto) 5.3, Eos % (Auto) 0.0, Baso % (Auto) 0.1, Absolute Neuts (auto) 14.2 H, Absolute Lymphs (auto) 0.75 L, Nucleated RBC % 0 01/26/22 11:53: Sodium 133 L, Potassium 3.8, Chloride 100, Carbon Dioxide 28.0, Anion Gap 5, BUN 14, Creatinine 1.09 H, Estim Creat Clear Calc 61.07, Est GFR (MDRD) Af Amer 76, Est GFR (MDRD) Non-Af 62, BUN/Creatinine Ratio 12.8, Glucose 104, Calcium 9.4, Total Bilirubin 0.70, AST 16, ALT 40, Alkaline Phosphatase 102, Total Protein 8.3 H, Albumin 4.1, Globulin 4.2, Albumin/Globulin Ratio 1.0 01/26/22 11:53: Lactic Acid 1.4 Micro: Microbiology 01/26/22 11:45 Nasal Secretion SARS-CoV-2 Antigen (Rapid) - Final 01/26/22 11:45 Mucosa - Nasopharyngeal Influenza Types A,B Direct FA (ORLY) - Final Radiology Impression Chest X-Ray 01/26/22 12:10 IMPRESSION: No radiographic evidence of acute cardiopulmonary disease. at 1222 Reported and signed by: Kedar Nair MD Electronically Signed: Kedar Nair MD at 12:21 EDT , Abdomen/Pelvis CT 01/26/22 13:32 IMPRESSION: Borderline prominence of the left renal pelvis. There is no ureteral stone hydronephrosis. There is a nonobstructing calyceal stone in the left kidney. Individualized dose optimization techniques were used for this CT. at 1351 Reported and signed by: Kedar Nair MD Electronically Signed: Kedar Nair MD at 13:50 EDT , Assessment & Plan Assessment/Plan (1) Pyelonephritis of left kidney: PLAN: 1. Acute pyelonephritis-patient will be admitted to [facility] 3, she will be placed on IV Rocephin and be given IV fluids, she will be seen in consultation by Dr. Alfonso. #2 left renal stone-patient will be seen in consultation by urology #3 dehydration-patient will be given IV fluids Charges/Coding Visit Charges Inpatient E&M: 00044 Init Hosp L3
[2022-01-26] MEDS: 0.9% Normal Saline 1,000 ML 150 ML IV ×2 (17:14→23:26)
[2022-01-26] MEDS: oxyCODONE 5 MG Tablet 10 MG PO (17:15)
[2022-01-26] MEDS: Acetaminophen 325 MG Tablet 650 MG PO (21:48)
[2022-01-27] VITALS (13 sets, daily range): BP systolic 97–119; BP diastolic 64–72; PULSE 85–107; RESP 16–20; TEMP 36.5–39.6; O2SAT 97–99
[2022-01-27] MEDS: oxyCODONE 5 MG Tablet 10 MG PO ×5 (00:12→22:08)
[2022-01-27] MEDS: 0.9% Normal Saline 1,000 ML 150 ML IV ×4 (05:20→23:32)
[2022-01-27] MEDS: Acetaminophen 325 MG Tablet 650 MG PO ×3 (05:20→17:35)
[2022-01-27 06:52] LABS: Absolute Lymphocyte Count 1.02 X10^3/uL (0.83-4.51); Absolute Neutrophil Count 9.7 X10^3/uL (2.0-7.7); Basophil# 0.03 X10^3/uL; Basophil% 0.3 % (0-1); Hematocrit 32.6 % (37-47); Lymphocyte # 1.02 X10^3/ul (0.83-4.51); Lymphocyte % 8.6 % (19-41); Mean Corp Hgb Conc 33.7 g/dL (32-36); Mean Corpuscular Hgb 30.4 pg (27.0-32.0); Mean Corpuscular Volume 90.1 fL (81-99); Mean Platelet Vol. 9.3 fl (6.2-12.0); Monocyte# 1.05 X10^3/uL; Monocyte% 8.9 % (0-10); NRBC Flagged by Analyzer 0 % (0-5); Neutrophil # 9.65 X10^3/uL (2.7-7.7); Neutrophil % 81.7 % (47-70); Platelet Count 157 K/mm3 (150-450); RBC Distribution Width CV 12.6 % (11.6-14.6); RBC Distribution Width SD 41.3 fl (35.1-43.9); Red Blood Count 3.62 M/mm3 (4.2-5.4); White Blood Count 11.8 K/mm3 (4.4-11.0)
[2022-01-27 07:16] LABS: Anion Gap 3 (5-15); BUN 8 mg/dL (7-18); BUN/Creat Ratio 10.9 RATIO (10-20); Calcium,Total 8.8 mg/dL (8.5-10.1); Chloride 111 mmol/L (98-107); Creatinine, Serum 0.73 mg/dL (0.55-1.02); EST Glomerular Filtration Rate 99 mL/min (>60); Est Glom Filt Rate - Afr Amer 119 mL/min (>60); Estimated Creatinine Clearance 90.01 ml/min; Glucose 110 mg/dL (74-106); Potassium 4.1 mmol/L (3.5-5.1); Sodium Level 139 mmol/L (136-145)
--- NOTE | 2022-01-27 08:25 | PCM.CONS.GEN ---
Assessment & Plan Assessment/Plan (1) Pyelonephritis of left kidney: (2) Renal calculus: (3) UTI (urinary tract infection): PLAN: Continue supportive care and antibiotics, await culture results Follow-up in the office for further discussion of prevention of urinary tract infections and pyelonephritis Plan for 24-hour urinalysis for stone protocol as an outpatient Thank you for the privilege of this consult HPI Consult Data Date of Consult: 01/27/22 HPI Narrative HPI Narrative: SHRUTI LISA, is a 31 F who developed a left-sided pyelonephritis with symptoms starting approximately 2 days ago. She has struggled intermittently with lower urinary tract infections, this is her first pyelonephritis. She has not had issues with kidney stones in the past. We discussed how infections and stones can be interrelated. We will proceed to work on improvement in overall urinary health and prevention of further stone disease as she recovers from her pyelonephritis and follows up in the office. [facility] Medical History (Updated 01/27/22 @ 08:[address] Tierney Alfonso MD) Anxiety Asthma Gastritis Renal calculus Substance abuse Home Medications acetaminophen 1,000 mg PO Q6H PRN 01/26/22 [History Last Taken 01/26/22] ibuprofen [Children's Motrin] 150 mg PO Q6H 01/26/22 [History Last Taken 01/26/22] Allergy/AdvReac Type Severity Reaction Status Date / Time No Known Allergies Allergy Verified 01/26/22 11:14 Family History Mother Asthma Arthritis Lung cancer Osteoporosis Thyroid disorder Surgical History History of appendectomy History of hysterectomy History of tonsillectomy and adenoidectomy Social History Smoking Status: Current every day smoker tobacco type: cigarettes and e-cigarettes alcohol intake: current substance use type: does not use additional social history: no aspirin use no ibuprofen use ROS Constitutional Constitutional: Reports body ache(s), chills and fever(s) Eyes Eyes: Reports systems reviewed and no addt'l complaints, except as documented ENT HEENT: Denies change in voice, hearing loss or loss taste/smell Cardiovascular Cardiovascular: Reports abdominal pain; Denies chest pain or dyspnea Respiratory/Chest Respiratory/Chest: Denies cough or shortness of breath at rest Gastrointestinal Gastrointestinal: Reports abdominal pain, constipation, cramping and nausea Genitourinary Genitourinary: Reports dysuria, flank pain, low back pain and urinary urgency Musculoskeletal Musculoskeletal: Reports systems reviewed and no addt'l complaints, except as documented Integumentary Integumentary: Reports systems reviewed and no addt'l complaints, except as documented Neurologic Neurologic: Reports systems reviewed and no addt'l complaints, except as documented Psychiatric Psychiatric: Reports systems reviewed and no addt'l complaints, except as documented Endocrine Endocrinology: Reports systems reviewed and no addt'l complaints, except as documented Hematologic/Lymphatic Hematologic/Lymphatic: Reports systems reviewed and no addt'l complaints, except as documented Allergic/Immunologic Allergic/Immunologic: Reports systems reviewed and no addt'l complaints, except as documented Physical Exam Const alert, oriented x3 and no apparent distress HEENT normocephalic, head/scalp atraumatic, hearing grossly normal bilaterally, external ears normal and external nose normal Eyes no scleral icterus General Eye: normal appearance of both eyes Neck supple General: trachea midline Lymph Lymphatic: no lymphedema noted Chest inspection of chest normal Chest: symmetrical chest wall rise Resp normal respiratory effort, normal air movement, no retractions and no use of accessory muscles Cardio regular rate and regular rhythm GI soft to palpation and non-distended Palpation: tender LUQ external exam normal Bladder / Kidney Exam: CVA tenderness left Back/Spine General Back: CVA tenderness left Extremity normal to inspection Skin no rashes or lesions noted, no wounds, skin turgor normal and no jaundice Neuro oriented x3, CN's II-XII intact bilaterally and moves all extremities Psych mental status grossly normal, thought process normal, cooperative and affect normal Lab / Micro Data Result Diagrams: 01/27/22 06:20 01/27/22 06:20 Labs: Laboratory Results - last 24 hr 01/26/22 11:45: Urine Color Yellow, Urine Clarity Sl. Cloudy, Urine pH 6.0, Ur Specific [place] 1.015, Urine Protein 100 H, Urine Glucose (UA) Normal, Urine Ketones 5 H, Urine Occult Blood 25 H, Urine Nitrite Negative, Urine Bilirubin Negative, Urine Urobilinogen Normal, Ur Leukocyte Esterase 500 H, Urine RBC 0-5 SEEN, Urine WBC 25-50 SEEN, Ur Squamous Epith Cells 0-5 SEEN, Urine Bacteria 1+, Urine Mucus 0 SEEN 01/26/22 11:53: WBC 16.0 H, RBC 4.75, Hgb 14.5, Hct 42.3, MCV 89.1, MCH 30.5, MCHC 34.3, RDW Std Deviation 41.9, RDW Coeff of Tru 12.8, Plt Count 234, MPV 9.3, Immature Gran % (Auto) 1.400 H, Neut % (Auto) 88.5 H, Lymph % (Auto) 4.7 L, Glenn % (Auto) 5.3, Eos % (Auto) 0.0, Baso % (Auto) 0.1, Absolute Neuts (auto) 14.2 H, Absolute Lymphs (auto) 0.75 L, Nucleated RBC % 0 01/26/22 11:53: Sodium 133 L, Potassium 3.8, Chloride 100, Carbon Dioxide 28.0, Anion Gap 5, BUN 14, Creatinine 1.09 H, Estim Creat Clear Calc 61.07, Est GFR (MDRD) Af Amer 76, Est GFR (MDRD) Non-Af 62, BUN/Creatinine Ratio 12.8, Glucose 104, Calcium 9.4, Total Bilirubin 0.70, AST 16, ALT 40, Alkaline Phosphatase 102, Total Protein 8.3 H, Albumin 4.1, Globulin 4.2, Albumin/Globulin Ratio 1.0 01/26/22 11:53: Lactic Acid 1.4 01/27/22 06:20: WBC 11.8 H, RBC 3.62 L, Hgb 11.0 L, Hct 32.6 L, MCV 90.1, MCH 30.4, MCHC 33.7, RDW Std Deviation 41.3, RDW Coeff of Tru 12.6, Plt Count 157, MPV 9.3, Immature Gran % (Auto) 0.500, Neut % (Auto) 81.7 H, Lymph % (Auto) 8.6 L, Glenn % (Auto) 8.9, Eos % (Auto) 0.0, Baso % (Auto) 0.3, Absolute Neuts (auto) 9.7 H, Absolute Lymphs (auto) 1.02, Nucleated RBC % 0 01/27/22 06:20: Sodium 139, Potassium 4.1, Chloride 111 H, Carbon Dioxide 25.0, Anion Gap 3 L, BUN 8, Creatinine 0.73, Estim Creat Clear Calc 90.01, Est GFR (MDRD) Af Amer 119, Est GFR (MDRD) Non-Af 99, BUN/Creatinine Ratio 10.9, Glucose 110 H, Calcium 8.8 Micro: Microbiology 01/26/22 11:45 Nasal Secretion SARS-CoV-2 Antigen (Rapid) - Final 01/26/22 11:45 Mucosa - Nasopharyngeal Influenza Types A,B Direct FA (ORLY) - Final Radiology Impression Chest X-Ray 01/26/22 12:10 IMPRESSION: No radiographic evidence of acute cardiopulmonary disease. at 1222 Reported and signed by: Kedar Nair MD Electronically Signed: Kedar Nair MD at 12:21 EDT , Abdomen/Pelvis CT 01/26/22 13:32 IMPRESSION: Borderline prominence of the left renal pelvis. There is no ureteral stone hydronephrosis. There is a nonobstructing calyceal stone in the left kidney. Individualized dose optimization techniques were used for this CT. at 1351 Reported and signed by: Kedar Nair MD Electronically Signed: Kedar Nair MD at 13:50 EDT ,
--- NOTE | 2022-01-27 09:40 | PCM.PN.HOSP ---
Subjective Subjective Feeling a little bit better but still has left flank pain Objective Data Objective Data Vital Signs: Vital Signs Temp Pulse Resp BP Pulse Ox 98.7 F 85 16 97/64 99 01/27/22 07:58 01/27/22 07:58 01/27/22 07:58 01/27/22 07:58 01/27/22 07:58 Oxygen Delivery Method Room Air Weight: 111 lb 8.862 oz Body Mass Index (BMI) 19.8 Intake & Output: Intake and Output for Last 24 Hours 01/26/22 01/27/22 01/28/22 03:59 03:59 03:59 Intake Total 3580 / 3580 1085 / 1085 Output Total 1250 / 1250 1800 / 1800 Balance 2330 / 2330 -715 / -715 Lab / Micro Data Result Diagrams: 01/27/22 06:20 01/27/22 06:20 Labs: Laboratory Results - last 24 hr 01/26/22 11:45: Urine Color Yellow, Urine Clarity Sl. Cloudy, Urine pH 6.0, Ur Specific [place] 1.015, Urine Protein 100 H, Urine Glucose (UA) Normal, Urine Ketones 5 H, Urine Occult Blood 25 H, Urine Nitrite Negative, Urine Bilirubin Negative, Urine Urobilinogen Normal, Ur Leukocyte Esterase 500 H, Urine RBC 0-5 SEEN, Urine WBC 25-50 SEEN, Ur Squamous Epith Cells 0-5 SEEN, Urine Bacteria 1+, Urine Mucus 0 SEEN 01/26/22 11:53: WBC 16.0 H, RBC 4.75, Hgb 14.5, Hct 42.3, MCV 89.1, MCH 30.5, MCHC 34.3, RDW Std Deviation 41.9, RDW Coeff of Tru 12.8, Plt Count 234, MPV 9.3, Immature Gran % (Auto) 1.400 H, Neut % (Auto) 88.5 H, Lymph % (Auto) 4.7 L, [place] % (Auto) 5.3, Eos % (Auto) 0.0, Baso % (Auto) 0.1, Absolute Neuts (auto) 14.2 H, Absolute Lymphs (auto) 0.75 L, Nucleated RBC % 0 01/26/22 11:53: Sodium 133 L, Potassium 3.8, Chloride 100, Carbon Dioxide 28.0, Anion Gap 5, BUN 14, Creatinine 1.09 H, Estim Creat Clear Calc 61.07, Est GFR (MDRD) Af Amer 76, Est GFR (MDRD) Non-Af 62, BUN/Creatinine Ratio 12.8, Glucose 104, Calcium 9.4, Total Bilirubin 0.70, AST 16, ALT 40, Alkaline Phosphatase 102, Total Protein 8.3 H, Albumin 4.1, Globulin 4.2, Albumin/Globulin Ratio 1.0 01/26/22 11:53: Lactic Acid 1.4 01/27/22 06:20: WBC 11.8 H, RBC 3.62 L, Hgb 11.0 L, Hct 32.6 L, MCV 90.1, MCH 30.4, MCHC 33.7, RDW Std Deviation 41.3, RDW Coeff of Tru 12.6, Plt Count 157, MPV 9.3, Immature Gran % (Auto) 0.500, Neut % (Auto) 81.7 H, Lymph % (Auto) 8.6 L, Sunflower % (Auto) 8.9, Eos % (Auto) 0.0, Baso % (Auto) 0.3, Absolute Neuts (auto) 9.7 H, Absolute Lymphs (auto) 1.02, Nucleated RBC % 0 01/27/22 06:20: Sodium 139, Potassium 4.1, Chloride 111 H, Carbon Dioxide 25.0, Anion Gap 3 L, BUN 8, Creatinine 0.73, Estim Creat Clear Calc 90.01, Est GFR (MDRD) Af Amer 119, Est GFR (MDRD) Non-Af 99, BUN/Creatinine Ratio 10.9, Glucose 110 H, Calcium 8.8 Micro: Microbiology 01/26/22 11:45 Nasal Secretion SARS-CoV-2 Antigen (Rapid) - Final 01/26/22 11:45 Mucosa - Nasopharyngeal Influenza Types A,B Direct FA (ORLY) - Final Radiography Diagnostic Testing: Radiology Impression Chest X-Ray 01/26/22 12:10 IMPRESSION: No radiographic evidence of acute cardiopulmonary disease. at 1222 Reported and signed by: Kedar Nair MD Electronically Signed: Kedar Nair MD at 12:21 EDT , Abdomen/Pelvis CT 01/26/22 13:32 IMPRESSION: Borderline prominence of the left renal pelvis. There is no ureteral stone hydronephrosis. There is a nonobstructing calyceal stone in the left kidney. Individualized dose optimization techniques were used for this CT. at 1351 Reported and signed by: Kedar Nair MD Electronically Signed: Kedar Nair MD at 13:50 EDT , Physical Exam Const alert, oriented x3 and no apparent distress General Appearance: cooperative HEENT normocephalic and moist oral mucous membranes Eyes PERRL, EOMs intact bilaterally and conjunctivae normal Neck supple and no JVD Resp normal respiratory effort, no retractions, no use of accessory muscles and clear to auscultation bilaterally Auscultation: Negative for crackles, rales, rhonchi or wheezes Cardio regular rate, regular rhythm, S1 normal heart sound, S2 normal heart sound and no murmurs GI soft to palpation, non-tender and non-distended; Negative for hepatosplenomegaly Bladder / Kidney Exam: CVA tenderness left Extremity no clubbing, cyanosis or edema Skin no rashes or lesions noted Neuro no focal motor deficits and no sensory deficits noted Psych affect normal Appearance: appropriate Assessment & Plan Assessment/Plan (1) Pyelonephritis of left kidney: PLAN: 1. Acute pyelonephritis with left nephrolithiasis ?She states that she has had multiple UTIs therefore we will have her follow-up with gynecology as an outpatient ?Continue with IV Rocephin pending urine cultures ?Blood cultures are also pending ?Continue with IV fluids ?Continue with pain meds DVT: Ambulation Charges/Coding Visit Charges Inpatient E&M: 27242 Subs Hosp L2
[2022-01-27] MEDS: Ondansetron 4 MG/2 ML Vial IV ×2 (09:50→18:03)
[2022-01-27] MEDS: Ceftriaxone 1 GM/50 ML BAG IV (09:52)
--- NOTE | 2022-01-27 18:07 | NURSING ---
Pt has fever educated pt the important of ice bags to help bring down temp pt refused ice bags. Doctor aware of fever tylenol given as ordered
[2022-01-28 03:58] VITALS: BP 96/66; PULSE 63; RESP 18; TEMP 36.9; O2SAT 99
[2022-01-28] MEDS: Acetaminophen 325 MG Tablet 650 MG PO (04:00)
[2022-01-28] MEDS: 0.9% Normal Saline 1,000 ML 150 ML IV ×2 (04:09→13:06)
[2022-01-28] MEDS: Ondansetron 4 MG/2 ML Vial IV ×2 (04:10→11:17)
[2022-01-28] MEDS: 0.9% Saline Lock 10 ML Syringe IV (04:10)
[2022-01-28 06:00] VITALS: BP 109/71; PULSE 72; RESP 18; TEMP 36.9; O2SAT 98
[2022-01-28] MEDS: oxyCODONE 5 MG Tablet 10 MG PO ×2 (06:06→11:25)
[2022-01-28 06:35] LABS: Absolute Lymphocyte Count 1.67 X10^3/uL (0.83-4.51); Basophil# 0.02 X10^3/uL; Basophil% 0.3 % (0-1); Eosinophil# 0.04 X10^3/uL; Eosinophils% 0.5 % (0-5); Hematocrit 28.2 % (37-47); Hemoglobin 9.6 g/dL (12.0-15.0); Lymphocyte # 1.67 X10^3/ul (0.83-4.51); Lymphocyte % 21.9 % (19-41); Mean Corpuscular Hgb 30.1 pg (27.0-32.0); Mean Corpuscular Volume 88.4 fL (81-99); Mean Platelet Vol. 9.6 fl (6.2-12.0); Monocyte# 0.91 X10^3/uL; NRBC Flagged by Analyzer 0 % (0-5); Neutrophil # 4.95 X10^3/uL (2.7-7.7); Platelet Count 152 K/mm3 (150-450); RBC Distribution Width CV 12.7 % (11.6-14.6); RBC Distribution Width SD 41.2 fl (35.1-43.9); Red Blood Count 3.19 M/mm3 (4.2-5.4); White Blood Count 7.6 K/mm3 (4.4-11.0)
[2022-01-28 06:54] LABS: Anion Gap 4 (5-15); BUN 4 mg/dL (7-18); BUN/Creat Ratio 7.7 RATIO (10-20); Calcium,Total 8.3 mg/dL (8.5-10.1); Chloride 109 mmol/L (98-107); Creatinine, Serum 0.52 mg/dL (0.55-1.02); EST Glomerular Filtration Rate 148 mL/min (>60); Est Glom Filt Rate - Afr Amer 179 mL/min (>60); Estimated Creatinine Clearance 126.36 ml/min; Glucose 91 mg/dL (74-106); Potassium 3.7 mmol/L (3.5-5.1); Sodium Level 139 mmol/L (136-145)
[2022-01-28 09:01] VITALS: BP 104/65; PULSE 74; RESP 18; TEMP 36.7; O2SAT 98
--- NOTE | 2022-01-28 09:39 | PCM.PN.HOSP ---
Subjective Subjective Urine culture the pansensitive E. coli. She still describes some left flank pain and abdominal pain. She does not have a ureteral stone, her stone is just in her kidney so this is not causing her pain has a follow-up with urology as an outpatient Objective Data Objective Data Vital Signs: Vital Signs Temp Pulse Resp BP Pulse Ox 98.1 F 74 18 104/65 98 01/28/22 09:01 01/28/22 09:01 01/28/22 09:01 01/28/22 09:01 01/28/22 09:01 Oxygen Delivery Method Room Air Weight: 111 lb 8.862 oz Body Mass Index (BMI) 19.8 Intake & Output: Intake and Output for Last 24 Hours 01/27/22 01/28/22 01/29/22 03:59 03:59 03:59 Intake Total 3580 / 3580 7895.0 / 7895.0 1092.5 / 1092.5 Output Total 1250 / 1250 4150 / 4150 1250 / 1250 Balance 2330 / 2330 3745.0 / 3745.0 -157.5 / -157.5 Lab / Micro Data Result Diagrams: 01/28/22 05:45 01/28/22 05:45 Labs: Laboratory Results - last 24 hr 01/28/22 05:45: WBC 7.6, RBC 3.19 L, Hgb 9.6 L, Hct 28.2 L, MCV 88.4, MCH 30.1, MCHC 34.0, RDW Std Deviation 41.2, RDW Coeff of Tru 12.7, Plt Count 152, MPV 9.6, Immature Gran % (Auto) 0.300, Neut % (Auto) 65.0, Lymph % (Auto) 21.9, [place] % (Auto) 12.0 H, Eos % (Auto) 0.5, Baso % (Auto) 0.3, Absolute Neuts (auto) 5.0, Absolute Lymphs (auto) 1.67, Nucleated RBC % 0 01/28/22 05:45: Sodium 139, Potassium 3.7, Chloride 109 H, Carbon Dioxide 26.0, Anion Gap 4 L, BUN 4 L, Creatinine 0.52 L, Estim Creat Clear Calc 126.36, Est GFR (MDRD) Af Amer 179, Est GFR (MDRD) Non-Af 148, BUN/Creatinine Ratio 7.7 L, Glucose 91, Calcium 8.3 L Micro: Microbiology 01/26/22 11:45 Urine, Clean Catch Urine Culture - Final Presumptive E. coli 01/26/22 11:45 Nasal Secretion SARS-CoV-2 Antigen (Rapid) - Final 01/26/22 11:45 Mucosa - Nasopharyngeal Influenza Types A,B Direct FA (ORLY) - Final Physical Exam Narrative Const alert, oriented x3 and no apparent distress General Appearance: cooperative HEENT normocephalic and moist oral mucous membranes Eyes PERRL, EOMs intact bilaterally and conjunctivae normal Neck supple and no JVD Resp normal respiratory effort, no retractions, no use of accessory muscles and clear to auscultation bilaterally Auscultation: Negative for crackles, rales, rhonchi or wheezes Cardio regular rate, regular rhythm, S1 normal heart sound, S2 normal heart sound and no murmurs GI soft to palpation, non-tender and non-distended; Negative for hepatosplenomegaly Bladder / Kidney Exam: CVA tenderness left Extremity no clubbing, cyanosis or edema Skin no rashes or lesions noted Neuro no focal motor deficits and no sensory deficits noted Psych affect normal Appearance: appropriate Assessment & Plan Assessment/Plan (1) Pyelonephritis of left kidney: PLAN: 1. Acute pyelonephritis with left nephrolithiasis ?She states that she has had multiple UTIs therefore we will have her follow-up with gynecology as an outpatient ?Continue with IV Rocephin for her pansensitive E. coli ?Blood cultures are also pending ?Continue with IV fluids ?Continue with pain meds DVT: Ambulation Charges/Coding Visit Charges Inpatient E&M: 64590 Subs Hosp L2
[2022-01-28] MEDS: Ceftriaxone 1 GM/50 ML BAG IV (09:43)
--- NOTE | 2022-01-28 13:43 | PCM.DC ---
Discharge Instructions Diet Discharge Diet: No restrictions Activity Discharge Activity: Return to Normal Activity Dressing / Incision Call your doctor if you observe: Fever of 101 or Higher, Shortness of breath, Dizziness, Fainting spells, Swelling in the ankles, Chest pain and Increased palpitations (irregular heartbeat) Follow Up Care Test Results: Test results from this visit will be discussed in further detail at your follow-up appointment, if applicable. Discharge Plan Admission Admit Date/Time: 01/26/22 15:42 Attending Provider: Eddie Mathews Primary Care Provider: Sailaja Samson Consulting Providers: Tierney Alfonso Discharge Orders/Prescriptions Prescriptions: New oxycodone 5 mg Tablet 5 mg PO Q4H PRN PRN (Reason: Pain Score 4-10) 3 Days Qty: 10 RF: 0 cefdinir 300 mg capsule 300 mg PO BID Qty: 14 RF: 0 ondansetron 4 mg tablet,disintegrating 4 mg PO Q8H PRN (Reason: nausea and vomiting) Qty: 14 RF: 0 Continued acetaminophen 500 mg Tablet 1,000 mg PO Q6H PRN (Reason: Pain) RF: 0 ibuprofen 50 mg Tablet,Chewable 150 mg PO Q6H RF: 0 Referrals / Follow Up: Sailaja Sasmon MD [Primary Care Provider] - Within 1 Week Tierney Alfonso MD [STAFF PHYSICIAN] - Within 1 Month Disposition Disposition (needs filled in before D/C Order can be placed): Home, Self Care
--- NOTE | 2022-01-28 13:48 | DS.PCM_ITS ---
Providers Date of Admission: 01/26/22 Primary Care Physician: Dr. Sailaja Samson MD Consultations 01/26/22 16:38 Consult: Urology Routine Consulting Provider: Tierney Alfonso Reason for Consult: left kidney stone EMERGENT Consult: No MD Notified: Yes Date Notified: 01/26/22 Time Notified: 15:44 Method of Notification: Verbal Reason For Visit: LEFT PYELONEPHRITIS DEHYDRATION Diagnosis Discharge Diagnosis (1) Pyelonephritis of left kidney: Status: Acute Code(s): N12 - Tubulo-interstitial nephritis, not specified as acute or chronic Medications at Discharge Home Medications acetaminophen 1,000 mg PO Q6H PRN 01/26/22 ibuprofen 150 mg PO Q6H 01/26/22 cefdinir 300 mg PO BID #14 cap 01/28/22 ondansetron 4 mg PO Q8H PRN #14 tab 01/28/22 oxycodone 5 mg PO Q4H PRN PRN 3 Days #10 tab 01/28/22 Hospital Course Operations None Procedures None Summary of Care Provided Minutes Spent on Discharge: 40 Hospital Course: Per HPI: SHRUTI LISA, is a 31 F who presents to the emergency room at [facility] with a chief complaint of malaise, fever, and left flank pain which started yesterday and has increased today. Patient denies any cough or shortness of breath. Patient complains of nausea but has had no vomiting. Vital signs in the emergency room revealed the patient to have a temperature of 102 orally, blood pressure initially was 105/56 but then dropped to 83/53, she was given IV fluids and labs were obtained, white blood cell count was elevated at 16,000, patient's chemistry profile was remarkable for sodium of 133, creatinine was 1.09, and urinalysis indicated the patient had a urinary tract infection with white blood cell count in the urine 25-50 and +1 bacteria. Patient's chest x-ray was unremarkable, patient's abdominal and pelvic CT reveal ed borderline prominence of the left renal pelvis, there was no ureteral stone or hydronephrosis noted to be present, there is a nonobstructing stone in the left kidney. Patient was given IV antibiotics. Patient will be admitted to [facility] for pyelonephritis, she will be given IV fluids and be maintained on IV Rocephin. Patient will be seen in consultation by urology due to her left kidney stone. Hospital Course: 1. Acute pyelonephritis with a left kidney stone?31-year-old female presented to the hospital with significant abdominal pain and flank pain. Also found to be dehydrated and having a UTI. Urine culture came back positive for pansensitive E. coli as the cause of her acute pyelonephritis. CT scan did show some stranding around the kidney but it also demonstrated a renal stone therefore urology was consulted and recommended outpatient follow-up. She feels better today and would like to go home. She still has a little bit of nausea and so plan will be to discharge her with another 7 days of cefdinir 300 mg p.o. twice daily is well as oxycodone for another 3days and Zofran to help with the nausea. She is to follow-up with her PCP as well as urology as an outpatient. I did discuss with her the plan for discharge today and she expressed unde rstanding of the risks and benefits of going home and would like to go home today. Weight / BMI Weight Weight: 111 lb 8.862 oz Body Mass Index (BMI) 19.8 ABG / Lab / Microbiology Data Result Diagrams: 01/28/22 05:45 01/28/22 05:45 Laboratory: Laboratory Results - last 24 hr 01/28/22 05:45: WBC 7.6, RBC 3.19 L, Hgb 9.6 L, Hct 28.2 L, MCV 88.4, MCH 30.1, MCHC 34.0, RDW Std Deviation 41.2, RDW Coeff of Tru 12.7, Plt Count 152, MPV 9.6, Immature Gran % (Auto) 0.300, Neut % (Auto) 65.0, Lymph % (Auto) 21.9, [place] % (Auto) 12.0 H, Eos % (Auto) 0.5, Baso % (Auto) 0.3, Absolute Neuts (auto) 5.0, Absolute Lymphs (auto) 1.67, Nucleated RBC % 0 01/28/22 05:45: Sodium 139, Potassium 3.7, Chloride 109 H, Carbon Dioxide 26.0, Anion Gap 4 L, BUN 4 L, Creatinine 0.52 L, Estim Creat Clear Calc 126.36, Est GF R (MDRD) Af Amer 179, Est GFR (MDRD) Non-Af 148, BUN/Creatinine Ratio 7.7 L, Glucose 91, Calcium 8.3 L Microbiology: Microbiology 01/26/22 12:00 Blood Culture (Wb) - Anticubital Left Blood Culture - Preliminary No growth in 48 hours. 01/26/22 11:53 Blood Culture (Wb) - Anticubital Right Blood Culture - Preliminary No growth in 48 hours. 01/26/22 11:45 Urine, Clean Catch Urine Culture - Final Presumptive E. coli 01/26/22 11:45 Nasal Secretion SARS-CoV-2 Antigen (Rapid) - Final 01/26/22 11:45 Mucosa - Nasopharyngeal Influenza Types A,B Direct FA (ORLY) - Final D/C Instructions Discharge Diet: No restrictions Call your doctor if you observe: Fever of 101 or Higher, Shortness of breath, Dizziness, Fainting spells, Swelling in the ankles, Chest pain and Increased palpitations (irregular heartbeat) Meaningful Use Info Meaningful Use Diagnoses (Choose all that apply): None applicable Discharge Plan Admission Admit Date/Time: 01/26/22 15:42 Attending Provider: Eddie Mathews Primary Care Provider: Sailaja Samson Consulting Providers: Tierney Alfonso Discharge Orders/Prescriptions Prescriptions: New oxycodone 5 mg Tablet 5 mg PO Q4H PRN PRN (Reason: Pain Score 4-10) 3 Days Qty: 10 RF: 0 cefdinir 300 mg capsule 300 mg PO BID Qty: 14 RF: 0 ondansetron 4 mg tablet,disintegrating 4 mg PO Q8H PRN (Reason: nausea and vomiting) Qty: 14 RF: 0 Continued acetaminophen 500 mg Tablet 1,000 mg PO Q6H PRN (Reason: Pain) RF: 0 ibuprofen 50 mg Tablet,Chewable 150 mg PO Q6H RF: 0 Referrals / Follow Up: Sailaja Samson MD [Primary Care Provider] - Within 1 Week Tierney Alfonso MD [STAFF PHYSICIAN] - Within 1 Month Disposition Disposition (needs filled in before D/C Order can be placed): Home, Self Care Charges/Coding Visit Charges Inpatient E&M: 92223 Disch Hosp
[2022-01-28 14:37] VITALS: BP 114/64; PULSE 74; RESP 18; TEMP 36.8; O2SAT 98
== END 2022-01-28 14:55 | disposition home or self-care (01) | DRG 463 ==
LOC: ED 15:08 → MS3 01-27 07:08
PROVIDERS: Admitting Provider Internal Medicine; Emergency Provider Emergency Medicine; PCP Internal Medicine; Visit Provider Family Medicine
DX: N10 Acute pyelonephritis (principal); B96.20 Unspecified Escherichia coli [E. coli] as the cause of diseases classified elsewhere; E86.0 Dehydration; F17.210 Nicotine dependence, cigarettes, uncomplicated; F17.290 Nicotine dependence, other tobacco product, uncomplicated; J45.909 Unspecified asthma, uncomplicated; N20.0 Calculus of kidney; Z87.440 Personal history of urinary (tract) infections
CPT/HCPCS: 36415; 71045; 74176; 80048; 80053; 81001; 83605; 85025; 87040; 87086; 87088; 87186; 87804; 87811; 93005; 96361; 96365; 96366; 96375; 96376; 99221; 99285; J7030; A4216; G0378; J2405

== ENCOUNTER 2022-02-05 14:39 | Emergency (ER) | payer MEDICAID, SELFPAY ==
[2022-02-05 14:39] VITALS: BP 98/80; PULSE 126; RESP 16; TEMP 35.7; O2SAT 97; BMI 19.6
--- NOTE | 2022-02-05 15:35 | EKG12_ITS ---
Test Reason : Blood Pressure : / mmHG Vent. Rate : 073 BPM Atrial Rate : 073 BPM P-R Int : 130 ms QRS Dur : 078 ms QT Int : 376 ms P-R-T Axes : 039 079 067 degrees QTc Int : 414 ms Normal sinus rhythm Nonspecific ST abnormality Abnormal ECG Confirmed by ZENA MAURO, BATSHEVA ([id number]), food editor MARY RAIN ([id number]) on 02/07/2022 10:38:59 AM Referred By: CHAITANYA Confirmed By:BATSHEVA FREITAS MD
[2022-02-05] MEDS: Ketorolac 15 MG/ML Vial IV (15:56)
[2022-02-05] MEDS: 0.9% Normal Saline 1,000 ML 999 ML IV (15:57)
[2022-02-05 16:00] VITALS: TEMP 36.9
[2022-02-05 16:06] LABS: Absolute Neutrophil Count 2.9 X10^3/uL (2.0-7.7); Basophil# 0.02 X10^3/uL; Basophil% 0.4 % (0-1); Eosinophil# 0.09 X10^3/uL; Eosinophils% 1.9 % (0-5); Hematocrit 42.1 % (37-47); Hemoglobin 14.2 g/dL (12.0-15.0); Lymphocyte % 30.9 % (19-41); Mean Corp Hgb Conc 33.7 g/dL (32-36); Mean Corpuscular Hgb 30.7 pg (27.0-32.0); Mean Corpuscular Volume 90.9 fL (81-99); Mean Platelet Vol. 8.4 fl (6.2-12.0); Monocyte# 0.32 X10^3/uL; Monocyte% 6.6 % (0-10); NRBC Flagged by Analyzer 0 % (0-5); Neutrophil # 2.91 X10^3/uL (2.7-7.7); Neutrophil % 59.8 % (47-70); Platelet Count 481 K/mm3 (150-450); RBC Distribution Width CV 12.9 % (11.6-14.6); RBC Distribution Width SD 41.6 fl (35.1-43.9); Red Blood Count 4.63 M/mm3 (4.2-5.4); White Blood Count 4.9 K/mm3 (4.4-11.0)
[2022-02-05 16:19] LABS: Bacteria 0 SEEN /hpf (None Seen); Mucous, Urine 0 SEEN /hpf (<or=2+); Red Blood Cells-Urine 0 SEEN /hpf (0-5); Squamous Epithelial Cells - UA 0 SEEN /hpf (5-10); White Blood Cells 0 SEEN /hpf (0-5)
[2022-02-05 16:25] LABS: Color, Urine Yellow (Yellow); Glucose, Dipstick Normal (Normal); Ketone-Dipstick Negative (Negative); Leukocyte Esterase-Dipstick Negative /ul (Negative); Nitrite-Dipstick Negative (Negative); Occult Blood-Urine Negative /ul (Negative); Protein-Dipstick Negative (Negative); Specific Gravity, Urine 1.015 (1.002-1.030); Urine Bilirubin Dipstick Negative (Negative); Urine Clarity Clear (Clear); Urine Urobilinogen Normal (Normal)
[2022-02-05 16:27] LABS: International Normalized Ratio 1.1; Prothrombin Time (Protime)PT. 13.5 SECONDS (11.7-14.9)
[2022-02-05 16:29] LABS: Partial Thromboplast Time 31.4 Seconds (24.1-36.2)
[2022-02-05 16:34] LABS: ALB/GLOB Ratio 0.9 RATIO (0.9-2.4); AST(SGOT) 41 U/L (15-37); Alanine Aminotransfer ALT/SGPT 108 U/L (13-56); Albumin, Serum 3.8 g/dL (3.2-5.0); Alkaline Phosphatase 87 U/L (45-117); Anion Gap 5 (5-15); BUN 8 mg/dL (7-18); BUN/Creat Ratio 9.4 RATIO (10-20); Calcium,Total 9.5 mg/dL (8.5-10.1); Chloride 104 mmol/L (98-107); Creatinine, Serum 0.85 mg/dL (0.55-1.02); EST Glomerular Filtration Rate 83 mL/min (>60); Est Glom Filt Rate - Afr Amer 101 mL/min (>60); Estimated Creatinine Clearance 76.92 ml/min; Globulin 4.3 g/dL (2.2-4.2); Glucose 107 mg/dL (74-106); Potassium 3.8 mmol/L (3.5-5.1); Protein, Total 8.1 g/dL (6.4-8.2); Sodium Level 139 mmol/L (136-145)
[2022-02-05 16:36] LABS: Lactic Acid 1.4 mmol/L (0.4-1.9)
[2022-02-05 16:41] VITALS: BP 104/64; PULSE 84; RESP 14; TEMP 36.4; O2SAT 100
--- NOTE | 2022-02-05 16:56 | EX.ED.DYSGE1 ---
HPI History of Present Illness Chief Complaint: Back Informant: patient Onset/Context/Timing Onset: Days Location: L flank Associated Symptoms Associated Symptoms: constipation Narrative Narrative: Patient presents today with severe left flank pain. This has been going on since her recent hospitalization where she was diagnosed with a kidney infection. She was found to have E. coli in her urine and was treated with cefdinir. She is currently out of her pain medication has been using [id number] remedies. She has some urinary frequency is but really no other associated symptoms. Recent Illness/Hospitalization: Yes PFSH PFSH Medical History Anxiety Asthma Gastritis Renal calculus Substance abuse Home Medications acetaminophen 1,000 mg PO Q6H PRN 01/26/22 [History Last Taken 01/26/22] ibuprofen 150 mg PO Q6H 01/26/22 [History Last Taken 01/26/22] ondansetron 4 mg PO Q8H PRN #14 tab 01/28/22 [Rx Last Taken Unknown] docusate sodium [Colace] 100 mg PO BID #60 cap 02/05/22 [Rx Last Taken Unknown] sennosides [senna] 8.6 mg PO BID #10 cap 02/05/22 [Rx Last Taken Unknown] Allergy/AdvReac Type Severity Reaction Status Date / Time No Known Allergies Allergy Verified 02/05/22 14:41 Family History Mother Asthma Arthritis Lung cancer Osteoporosis Thyroid disorder Surgical History History of appendectomy History of hysterectomy History of tonsillectomy and adenoidectomy Social History Smoking Status: Current every day smoker tobacco type: e-cigarettes alcohol intake: current substance use type: does not use additional social history: no aspirin use no ibuprofen use ROS ROS ED Constitutional Constitutional ED: Denies fever(s) Eyes Eyes: Denies change in vision ENT ENT ED: Denies ear pain Cardiovascular Cardiovascular: Denies chest pain Respiratory/Chest Respiratory/Chest: Denies dyspnea Gastrointestinal Gastrointestinal: Reports constipation; Denies abdominal pain, diarrhea, nausea or vomiting Genitourinary Genitourinary ED: Reports urinary frequency; Denies dysuria or hematuria Musculoskeletal Musculoskeletal: Reports back pain; Denies arthralgias, myalgias or neck pain Integumentary Denies rash Neurologic Neurologic: Denies headache(s) Psychiatric Psychiatric: Denies depression Endocrine Endocrinology: Denies polyuria Allergic/Immunologic Allergic/Immunologic ED: Denies urticaria EXAM Physical Exam Const Vital Signs: 02/05/22 14:39 02/05/22 15:59 02/05/22 16:00 Temperature 96.3 F L 98.5 F Temperature Source Temporal Temporal Pulse Rate 126 H Respiratory Rate 16 Blood Pressure 98/80 Blood Pressure Mean 86 Pulse Ox 97 Oxygen Delivery Method Room Air Room Air 02/05/22 16:41 Temperature 97.6 F L Temperature Source Temporal Pulse Rate 84 Respiratory Rate 14 Blood Pressure 104/64 Blood Pressure Mean 77 Pulse Ox 100 Oxygen Delivery Method Room Air Positive well nourished and well developed General Appearance ED: well developed HEENT Negative for trauma Eyes EOMs intact bilaterally Neck supple Resp normal respiratory effort Cardio regular rate GI normal to inspection, nondistended, normoactive bowel sounds GI Narrative: Left CVA tenderness Back/Spine General Back: CVA tenderness Extremity normal to inspection Neuro oriented x3 Sensorium / Orientation: alert Psych Mood & Affect: depressed MDM MDM MDM Narrative Medical decision making narrative: Patient had a borderline blood pressure with tachycardia. I checked sepsis labs. She had platelets of 41, AST 41, ALT 108 which are nonspecific findings. Her white count, kidney function, lactate were all unremarkable. She was treated IV fluids and pain medication. Reviewed her prior visit and labs. Her CT showed no obstruction or hydronephrosis. There is a nonobstructing stone in the left renal pelvis. There is no indication to repeat the imaging today. There are no new or acute issues requiring further diagnostic testing emergently or hospitalization. I suspect this may be some residual pain. It seems like her infection has resolved. It may also be related to discontinuing her opioids. She has had some constipation. Will prescribe senna and stool softeners. She will follow-up with her PCP later in the week. Return for any new or worsening issues. Impression #1 left flank pain Impression #2 constipation Disposition is discharged home Lab Data Labs: Laboratory Results - last 24 hr 02/05/22 02/05/22 02/05/22 15:50 15:50 15:50 WBC 4.9 RBC 4.63 Hgb 14.2 Hct 42.1 MCV 90.9 MCH 30.7 MCHC 33.7 RDW Std Deviation 41.6 RDW Coeff of Tru 12.9 Plt Count 481 H MPV 8.4 Immature Gran % (Auto) 0.400 Neut % (Auto) 59.8 Lymph % (Auto) 30.9 [place] % (Auto) 6.6 Eos % (Auto) 1.9 Baso % (Auto) 0.4 Absolute Neuts (auto) 2.9 Absolute Lymphs (auto) 1.50 Nucleated RBC % 0 PT 13.5 INR 1.1 APTT 31.4 Sodium 139 Potassium 3.8 Chloride 104 Carbon Dioxide 30.0 Anion Gap 5 BUN 8 Creatinine 0.85 Estim Creat Clear Calc 76.92 Est GFR (MDRD) Af Amer 101 Est GFR (MDRD) Non-Af 83 BUN/Creatinine Ratio 9.4 L Glucose 107 H Lactic Acid Calcium 9.5 Total Bilirubin 0.40 AST 41 H ALT 108 H Alkaline Phosphatase 87 Total Protein 8.1 Albumin 3.8 Globulin 4.3 H Albumin/Globulin Ratio 0.9 Urine Color Urine Clarity Urine pH Ur Specific [place] Urine Protein Urine Glucose (UA) Urine Ketones Urine Occult Blood Urine Nitrite Urine Bilirubin Urine Urobilinogen Ur Leukocyte Esterase Urine RBC Urine WBC Ur Squamous Epith Cells Urine Bacteria Urine Mucus 02/05/22 02/05/22 15:50 16:15 WBC RBC Hgb Hct MCV MCH MCHC RDW Std Deviation RDW Coeff of Tru Plt Count MPV Immature Gran % (Auto) Neut % (Auto) Lymph % (Auto) [place] % (Auto) Eos % (Auto) Baso % (Auto) Absolute Neuts (auto) Absolute Lymphs (auto) Nucleated RBC % PT INR APTT Sodium Potassium Chloride Carbon Dioxide Anion Gap BUN Creatinine Estim Creat Clear Calc Est GFR (MDRD) Af Amer Est GFR (MDRD) Non-Af BUN/Creatinine Ratio Glucose Lactic Acid 1.4 Calcium Total Bilirubin AST ALT Alkaline Phosphatase Total Protein Albumin Globulin Albumin/Globulin Ratio Urine Color Yellow Urine Clarity Clear Urine pH 8.0 Ur Specific [place] 1.015 Urine Protein Negative Urine Glucose (UA) Normal Urine Ketones Negative Urine Occult Blood Negative Urine Nitrite Negative Urine Bilirubin Negative Urine Urobilinogen Normal Ur Leukocyte Esterase Negative Urine RBC 0 SEEN Urine WBC 0 SEEN Ur Squamous Epith Cells 0 SEEN Urine Bacteria 0 SEEN Urine Mucus 0 SEEN Discharge Plan Triage Chief Complaint: Back ED Provider: Wild Miranda Dx/Rx/DC Orders Instructions: ED Back Pain (Acute or Chronic) Prescriptions: New docusate sodium [Colace] 100 mg capsule 100 mg PO BID Qty: 60 RF: 0 senna 8.6 mg capsule 8.6 mg PO BID Qty: 10 RF: 0 No Action acetaminophen 500 mg Tablet 1,000 mg PO Q6H PRN (Reason: Pain) RF: 0 ibuprofen 50 mg Tablet,Chewable 150 mg PO Q6H RF: 0 ondansetron 4 mg tablet,disintegrating 4 mg PO Q8H PRN (Reason: nausea and vomiting) Qty: 14 RF: 0 Primary Care Provider: Sailaja Samson Referrals: Sailaja Samson MD [Primary Care Provider] - Disposition Disposition: Home, Self Care
[2022-02-05 17:09] VITALS: BP 103/65; PULSE 89; RESP 16; O2SAT 98
== END 2022-02-05 17:10 | disposition home or self-care (01) ==
PROVIDERS: Emergency Provider Emergency Medicine; PCP Internal Medicine; Visit Provider Emergency Medicine
DX: K59.00 Constipation, unspecified (principal); F17.290 Nicotine dependence, other tobacco product, uncomplicated; J45.909 Unspecified asthma, uncomplicated; F41.9 Anxiety disorder, unspecified; Z87.442 Personal history of urinary calculi; Z87.19 Personal history of other diseases of the digestive system; Z79.899 Other long term (current) drug therapy; N20.0 Calculus of kidney
CPT/HCPCS: 80053; 81001; 83605; 85025; 85610; 85730; 87040; 87086; 93005; 96361; 96374; 99284

== ENCOUNTER 2022-02-13 17:11 | Emergency (ER) | payer MEDICAID, SELFPAY ==
[2022-02-13 17:12] VITALS: BP 135/105; PULSE 117; RESP 16; TEMP 36; O2SAT 98; BMI 18.8
--- NOTE | 2022-02-13 18:16 | CT_ITS ---
STUDY: CT Abdomen And Pelvis W/O Contrast Injection 02/13/2022 7:27 PM REASON FOR EXAM: Female, 31 years old. Technologist Notes Left flank pain x3 weeks, history of appendectomy, partial hysterectomy. PAIN Pain TECHNIQUE: Transaxial images were obtained without oral contrast, and without intravenous contrast. Individualized dose optimization techniques were used for this CT. COMPARISON: None. FINDINGS: The visualized lung bases are unremarkable. The visualized portions of the heart are within normal limits. Normal liver. The gallbladder is contracted. Normal spleen. Normal pancreas. Normal bilateral adrenal glands. No acute findings of the right kidney. No acute findings of the left kidney. Normal visualized stomach. Normal small intestine. Stool throughout the colon. There are surgical clips in the region of the appendix consistent with a prior appendectomy. There are no acute findings of the abdominal aorta. Normal inferior vena cava. Subcentimeter mesenteric lymph nodes. Normal urinary bladder. There is absence of the uterus consistent with a prior hysterectomy. There is an umbilical hernia containing fat. Normal osseous structures. IMPRESSION: (NOT LISTED IN ORDER OF SIGNIFICANCE) There are no acute findings. There are no acute findings. Other findings as above. Electronically Signed: Winston Solorzano MD at 19:30 EDT , CT/Abdomen/Pelvis without Cont
--- NOTE | 2022-02-13 18:19 | EDS_ITS ---
HPI History of Present Illness Chief Complaint: Flank Pain Informant: patient Narrative Narrative: Patient presents with continued left flank pain. She was seen and admitted for left flank pain found to have a calyceal stone but showing no obstruction. She also had a infection with E. coli causing pyelonephritis. She was on antibiotics. She states she went home on antibiotics and just finished them about 2 or 3 days ago. She urinates slightly more frequently than baseline but overall it has improved. She is not having fevers or chills. She gets nauseated but that is mostly when the pain gets worse. The pain in her left flank is never gone away. Today was little bit worse. She called her primary doctor who referred her back into the emergency department. She was back in 1 other time after being admitted. She does admit that sometimes she gets back pains. She is not sure if this is her kidney or just her back. However, moving twisting and sitting up and bending do make the symptoms worse. But she has no radicular symptoms. No bowel or bladder dysfunction. She is eating and drinking. She is moving bowels normally. She does not have anterior abdominal pain. Salt left back area. [facility] Medical History Anxiety Asthma Gastritis Renal calculus Substance abuse Home Medications acetaminophen 1,000 mg PO Q6H PRN 01/26/22 [History Last Taken 01/26/22] ibuprofen 150 mg PO Q6H 01/26/22 [History Last Taken 01/26/22] ondansetron 4 mg PO Q8H PRN #14 tab 01/28/22 [Rx Last Taken Unknown] docusate sodium [Colace] 100 mg PO BID #60 cap 02/05/22 [Rx Last Taken Unknown] sennosides [senna] 8.6 mg PO BID #10 cap 02/05/22 [Rx Last Taken Unknown] cyclobenzaprine 10 mg PO BID PRN #10 tab 02/13/22 [Rx Last Taken Unknown] naproxen 500 mg PO BID #14 tab 02/13/22 [Rx Last Taken Unknown] Allergy/AdvReac Type Severity Reaction Status Date / Time No Known Allergies Allergy Verified 02/13/22 17:13 Family History Mother Asthma Arthritis Lung cancer Osteoporosis Thyroid disorder Surgical History History of appendectomy History of hysterectomy History of tonsillectomy and adenoidectomy Social History Smoking Status: Current every day smoker tobacco type: e-cigarettes alcohol intake: current substance use type: does not use additional social history: no aspirin use no ibuprofen use ROS ROS ED Constitutional Constitutional ED: Denies chills or fever(s) ENT ENT ED: Denies rhinorrhea or sore throat Cardiovascular Cardiovascular: Denies chest pain or palpitations Respiratory/Chest Respiratory/Chest: Denies cough, dyspnea or dyspnea on exertion Gastrointestinal Gastrointestinal: Reports nausea; Denies abdominal pain, constipation, diarrhea, melena or vomiting Genitourinary Genitourinary ED: Reports urinary frequency; Denies dysuria or hematuria Musculoskeletal Musculoskeletal: Reports back pain; Denies myalgias Integumentary Denies rash Neurologic Neurologic: Denies headache(s) Psychiatric Psychiatric: Reports anxiety; Denies depression Endocrine Endocrinology: Denies polydipsia or polyuria Allergic/Immunologic Allergic/Immunologic ED: Denies urticaria EXAM Physical Exam Const Vital Signs: 02/13/22 17:12 02/13/22 19:40 Temperature 96.8 F L Temperature Source Temporal Pulse Rate 117 H 65 Respiratory Rate 16 16 Blood Pressure 135/105 H 111/80 Blood Pressure Mean 115 90 Pulse Ox 98 97 Oxygen Delivery Method Room Air Room Air Positive well nourished HEENT Reports moist mucous membranes Eyes General Eye ED: Negative for pale conjunctiva or scleral icterus Neck no JVD Chest Wall inspection of chest normal Resp normal respiratory effort Cardio regular rate and regular rhythm GI normal to inspection, nondistended, normoactive bowel sounds, non-tender and non-distended Palpation: soft Back/Spine Back/Spine Narrative: Patient does have some diffuse left-sided paraspinal pain. This seems more paraspinal tenderness than actual CVA tenderness. It also hurts when she sits forward or twists. Exam more indicates musculoskeletal pain. Extremity normal to inspection General Extremety ED: Negative for edema or tenderness General Extremity: Negative for edema Neuro oriented x3 Neuro Narrative: No distal numbness tingling weakness Sensorium / Orientation: alert Skin no rashes or lesions noted MDM MDM MDM Narrative Medical decision making narrative: Patient CBC is normal. Her electrolytes are normal. Her urinalysis is normal. Her CAT scan is normal. I think her symptoms are primarily due to musculoskeletal pain. She did have t he very small kidney stone in her first CT from prior visit. Although it was not mentioned in the scan I do see it still. I think patient is okay for discharge. I do not think she requires any further antibiotics. We will get her on nonsteroidals and muscle relaxants. Lab Data Attestation: I reviewed the patient's lab results. Labs: Laboratory Results - last 24 hr 02/13/22 02/13/22 02/13/22 17:40 17:40 17:40 WBC 5.3 RBC 4.54 Hgb 13.9 Hct 40.9 MCV 90.1 MCH 30.6 MCHC 34.0 RDW Std Deviation 41.8 RDW Coeff of Tru 12.7 Plt Count 399 MPV 9.3 Immature Gran % (Auto) 0.200 Neut % (Auto) 44.5 L Lymph % (Auto) 45.8 H [place] % (Auto) 8.1 Eos % (Auto) 0.8 Baso % (Auto) 0.6 Absolute Neuts (auto) 2.4 Absolute Lymphs (auto) 2.44 Nucleated RBC % 0 Sodium 137 Potassium 3.6 Chloride 104 Carbon Dioxide 27.0 Anion Gap 6 BUN 10 Creatinine 0.85 Estim Creat Clear Calc 73.46 Est GFR (MDRD) Af Amer 100 Est GFR (MDRD) Non-Af 83 BUN/Creatinine Ratio 11.7 Glucose 95 Calcium 9.6 Urine Color Yellow Urine Clarity Clear Urine pH 7.0 Ur Specific [place] 1.005 Urine Protein Negative Urine Glucose (UA) Normal Urine Ketones Negative Urine Occult Blood Negative Urine Nitrite Negative Urine Bilirubin Negative Urine Urobilinogen Normal Ur Leukocyte Esterase Negative Urine RBC 0 SEEN Urine WBC 0 SEEN Ur Squamous Epith Cells 0-5 SEEN Urine Bacteria 0 SEEN Urine Mucus 0 SEEN Radiography Diagnostic Testing: Clinical Impression(s) from Imaging Studies Abdomen/Pelvis CT 02/13/22 18:16 Discharge Plan Triage Chief Complaint: Flank Pain ED Provider: Murray Ortiz Dx/Rx/DC Orders Clinical Impression: Left lumbar pain Instructions: ED Back Pain (Acute or Chronic) Prescriptions: New cyclobenzaprine 10 mg tablet 10 mg PO BID PRN (Reason: muscle spasm) Qty: 10 RF: 0 naproxen 500 MG tablet 500 mg PO BID Qty: 14 RF: 0 No Action acetaminophen 500 mg Tablet 1,000 mg PO Q6H PRN (Reason: Pain) RF: 0 ibuprofen 50 mg Tablet,Chewable 150 mg PO Q6H RF: 0 ondansetron 4 mg tablet,disintegrating 4 mg PO Q8H PRN (Reason: nausea and vomiting) Qty: 14 RF: 0 docusate sodium [Colace] 100 mg capsule 100 mg PO BID Qty: 60 RF: 0 senna 8.6 mg capsule 8.6 mg PO BID Qty: 10 RF: 0 Primary Care Provider: Sailaja Samson Referrals: Sailaja Samson MD [Primary Care Provider] - 3-5 Days Disposition Disposition: Home, Self Care
[2022-02-13] MEDS: Ondansetron 4 MG/2 ML Vial IV (18:26)
[2022-02-13] MEDS: Ketorolac 15 MG/ML Vial IV (18:26)
[2022-02-13] MEDS: 0.9% Normal Saline 1,000 ML 1000 ML IV (18:27)
[2022-02-13 18:31] LABS: Bacteria 0 SEEN /hpf (None Seen); Mucous, Urine 0 SEEN /hpf (<or=2+); Red Blood Cells-Urine 0 SEEN /hpf (0-5); White Blood Cells 0 SEEN /hpf (0-5)
[2022-02-13 18:37] LABS: Absolute Lymphocyte Count 2.44 X10^3/uL (0.83-4.51); Absolute Neutrophil Count 2.4 X10^3/uL (2.0-7.7); Basophil# 0.03 X10^3/uL; Basophil% 0.6 % (0-1); Eosinophil# 0.04 X10^3/uL; Eosinophils% 0.8 % (0-5); Hematocrit 40.9 % (37-47); Hemoglobin 13.9 g/dL (12.0-15.0); Lymphocyte # 2.44 X10^3/ul (0.83-4.51); Lymphocyte % 45.8 % (19-41); Mean Corpuscular Hgb 30.6 pg (27.0-32.0); Mean Corpuscular Volume 90.1 fL (81-99); Mean Platelet Vol. 9.3 fl (6.2-12.0); Monocyte# 0.43 X10^3/uL; Monocyte% 8.1 % (0-10); NRBC Flagged by Analyzer 0 % (0-5); Neutrophil # 2.38 X10^3/uL (2.7-7.7); Neutrophil % 44.5 % (47-70); Platelet Count 399 K/mm3 (150-450); RBC Distribution Width CV 12.7 % (11.6-14.6); RBC Distribution Width SD 41.8 fl (35.1-43.9); Red Blood Count 4.54 M/mm3 (4.2-5.4); White Blood Count 5.3 K/mm3 (4.4-11.0)
[2022-02-13] MEDS: Morphine 4 MG/ML Syringe IV (18:39)
[2022-02-13 18:44] LABS: Anion Gap 6 (5-15); BUN 10 mg/dL (7-18); BUN/Creat Ratio 11.7 RATIO (10-20); Calcium,Total 9.6 mg/dL (8.5-10.1); Chloride 104 mmol/L (98-107); Creatinine, Serum 0.85 mg/dL (0.55-1.02); EST Glomerular Filtration Rate 83 mL/min (>60); Est Glom Filt Rate - Afr Amer 100 mL/min (>60); Estimated Creatinine Clearance 73.46 ml/min; Glucose 95 mg/dL (74-106); Potassium 3.6 mmol/L (3.5-5.1); Sodium Level 137 mmol/L (136-145)
[2022-02-13 18:48] LABS: Color, Urine Yellow (Yellow); Glucose, Dipstick Normal (Normal); Ketone-Dipstick Negative (Negative); Leukocyte Esterase-Dipstick Negative /ul (Negative); Nitrite-Dipstick Negative (Negative); Occult Blood-Urine Negative /ul (Negative); Protein-Dipstick Negative (Negative); Specific Gravity, Urine 1.005 (1.002-1.030); Urine Bilirubin Dipstick Negative (Negative); Urine Clarity Clear (Clear); Urine Urobilinogen Normal (Normal)
[2022-02-13 18:55] LABS: Squamous Epithelial Cells - UA 0-5 SEEN /hpf (5-10)
[2022-02-13 19:40] VITALS: BP 111/80; PULSE 65; RESP 16; O2SAT 97
[2022-02-13 20:43] VITALS: RESP 18
== END 2022-02-13 20:44 | disposition home or self-care (01) ==
PROVIDERS: Emergency Provider Emergency Medicine; PCP Internal Medicine; Visit Provider Emergency Medicine
DX: M54.50 Low back pain, unspecified (principal); F17.290 Nicotine dependence, other tobacco product, uncomplicated; F41.9 Anxiety disorder, unspecified; J45.909 Unspecified asthma, uncomplicated; Z87.442 Personal history of urinary calculi; Z87.19 Personal history of other diseases of the digestive system; Z79.899 Other long term (current) drug therapy; R11.0 Nausea; R35.0 Frequency of micturition
CPT/HCPCS: 85025; 96361; 96374; J2405; 74176; 87086; 80048; 81001; 96375; 99283; J7030; A4216

== ENCOUNTER 2022-04-07 08:42 | Day surgery (SDC) | payer MEDICAID, SELFPAY ==
[2022-04-07] VITALS (8 sets, daily range): BP systolic 87–109; BP diastolic 61–69; PULSE 53–75; RESP 16; TEMP 36.4–36.6; O2SAT 96–98; BMI 18.7
--- NOTE | 2022-04-07 09:10 | PCM.DC ---
Discharge Instructions Diet Discharge Diet: No restrictions Activity Discharge Activity: Return to Normal Activity and [address] (When not taking pain medication) May resume sexual activity in: No Restrictions Dressing / Incision Call your doctor if you observe: Fever of 101 or Higher, Inability to urinate and Inability to have a bowel movement Follow Up Care Please Follow Up With: Tierney Alfonso MD When: Call office for appointment Test Results: Test results from this visit will be discussed in further detail at your follow-up appointment, if applicable. Discharge Plan Admission Attending Provider: Tierney Alfonso Primary Care Provider: Sailaja Samson Discharge Orders/Prescriptions Prescriptions: Continued acetaminophen 500 mg Tablet 1,000 mg PO Q6H PRN (Reason: Pain) RF: 0 docusate sodium [Colace] 100 mg capsule 100 mg PO BID Qty: 60 RF: 0 albuterol sulfate 90 mcg/actuation Hfa Aerosol Inhaler 2 puff INHALATION Q6H PRN (Reason: ASTHMA) RF: 0 Referrals / Follow Up: Sailaja Samson MD [Primary Care Provider] - Disposition Disposition (needs filled in before D/C Order can be placed): Home, Self Care
--- NOTE | 2022-04-07 09:12 | OP.PCM_ITS ---
Problems Associated Problem List Diagnoses (1) Pelvic pain: (2) Back pain: (3) Pyelonephritis: Report of Operation Date of Procedure: 04/07/22 Pre-Operative Diagnosis: Pelvic pain, back pain, history of pyelonephritis, urinary hesitancy Post-Operative Diagnosis: Same Surgery/Procedure Performed:: Cystoscopy with bilateral retrograde pyelograms, pelvic exam under anesthesia Type of Anesthesia: MAC Description of Procedure: The patient is a 31-year-old female with a history of pyelonephritis with continued bilateral flank pain, pelvic pain and lower urinar y tract symptoms including urinary hesitancy. She is here today for further evaluation of her symptoms. Informed consent was obtained. Patient was taken to the operating room and placed on the operating room table. Anesthesia monitored the head, neck, airway, IV access and vital signs throughout the case. Once anesthesia was appropriate ministered the patient was placed into dorsal lithotomy position and was prepped and draped in usual sterile fashion. Pelvic examination revealed no evidence of pelvic organ prolapse. There were no trigger points identified. There is no pelvic mass. The cystoscope was inserted through the urethra under direct visualization into the urinary bladder. The bladder mucosa was visualized in its entirety and found to be without evidence of erythema, ulceration or mass. There is no foreign body. The ureteral orifices were located in the correct anatomic position in the area of the trigone. The orifices were both very small, not consistent with vesi coureteral reflux. Each ureteral orifice was individually cannulated with a 8 [place] cone-tip catheter and contrast was injected in retrograde fashion under fluoroscopic visualization. There were no filling defects or abnormalities identified in either collecting system. At this time the patient's bladder was emptied and the case was terminated. She was awakened and taken to the recovery room in good condition. There were no complications during this procedure. Grafts/Implants Used: None Complications None Admit VTE Documentation VTE Present on Admission: Yes VTE Mechan Device Prophylaxis: SCD's VTE Pharm Prophylaxis ordered?: No Reason prophylaxis not ordered:: Treatment Not Indicated
[2022-04-07] MEDS: Lactated Ringers 1,000 ML 15 ML IV (09:17)
[2022-04-07] MEDS: Cefazolin 2 GM in 0.9% Normal Saline 100 ML IV (10:15)
[2022-04-07] MEDS: oxyCODONE 5 MG Tablet PO (12:03)
== END 2022-04-07 12:30 | disposition home or self-care (01) ==
LOC: SDC 08:43 → AC 08:43
PROVIDERS: PCP Internal Medicine; Referring Provider Urology; Visit Provider Urology
PROC: (CPT 52332; principal; 2022-04-07 10:00)
DX: N12 Tubulo-interstitial nephritis, not specified as acute or chronic (principal); Z87.442 Personal history of urinary calculi
CPT/HCPCS: 52005; 00910; 76000; J7120; J2405

== ENCOUNTER 2022-04-16 16:32 | Emergency (ER) | payer MEDICAID, SELFPAY ==
[2022-04-16 16:33] VITALS: BP 108/73; PULSE 95; RESP 16; TEMP 36.4; O2SAT 99; BMI 18.6
--- NOTE | 2022-04-16 16:54 | EDS_ITS ---
HPI History of Present Illness Chief Complaint: General Illness Informant: patient Onset/Context/Timing Onset: Today Current Severity: Mild Maximum Severity: Mild Narrative Narrative: Patient presents secondary to continued left flank pain as well as positive COVID test. She reports onset of low-grade fever, cough, chills, body aches today. She took a home COVID test that was positive. She did take Tylenol prior to arrival. She also complains of continued left flank pain. This has been an ongoing issue for the past several months. She does have a history of kidney stones as well as pyelonephritis. She just had a cystoscopy with Dr. Alfonso a week ago. [facility] Medical History Anxiety Arthritis Asthma Back pain Depression Gastric reflux Gastritis History of edema History of irregular heartbeat History of steroid therapy Injury of head and neck Kidney stones Migraine headache Pyelonephritis Renal calculus Shortness of breath on exertion Smoker Substance abuse Wears contact lenses Wears glasses Home Medications acetaminophen 1,000 mg PO Q6H PRN 01/26/22 [History Last Taken 01/26/22] docusate sodium [Colace] 100 mg PO BID #60 cap 02/05/22 [Rx Last Taken Unknown] albuterol sulfate 2 puff INHALATION Q6H PRN 03/21/22 [History Last Taken Unknown] naproxen [Naprosyn] 500 mg PO BID PRN #20 tab 04/16/22 [Rx Last Taken Unknown] Allergy/AdvReac Type Severity Reaction Status Date / Time No Known Allergies Allergy Verified 04/16/22 16:35 Family History Mother Asthma Arthritis Lung cancer Osteoporosis Thyroid disorder Surgical History History of appendectomy History of esophagogastroduodenoscopy (EGD) History of hysterectomy History of tonsillectomy and adenoidectomy Hx of colonoscopy Hx of dilation and curettage Hx of laparoscopy Hx of thumb surgery Social History Smoking Status: Current every day smoker tobacco type: e-cigarettes alcohol intake: current substance use type: does not use additional social history: no aspirin use no ibuprofen use ROS ROS ED Constitutional Constitutional ED: Reports chills and fever(s) ENT ENT ED: Reports sore throat and other Details: Congestion Cardiovascular Cardiovascular: Denies palpitations or racing heartbeat Respiratory/Chest Respiratory/Chest: Reports cough and dyspnea Gastrointestinal Gastrointestinal: Reports abdominal pain and diarrhea; Denies vomiting Genitourinary Genitourinary ED: Denies hematuria or urinary frequency Musculoskeletal Musculoskeletal: Reports back pain and myalgias Integumentary Denies rash Neurologic Neurologic: Reports headache(s) Psychiatric Psychiatric: Denies anxiety or depression Endocrine Endocrinology: Denies polydipsia or polyuria Allergic/Immunologic Allergic/Immunologic ED: Denies urticaria EXAM Physical Exam Const Vital Signs: 04/16/22 16:33 04/16/22 16:51 Temperature 97.6 F L Temperature Source Temporal Pulse Rate 95 Respiratory Rate 16 Respiratory Effort Normal Non-Labored Respiratory Pattern Normal Blood Pressure 108/73 Blood Pressure Mean 84 Pulse Ox 99 Oxygen Delivery Method Room Air Positive well nourished and well developed General Appearance ED: well developed HEENT Reports moist mucous membranes Eyes PERRL and EOMs intact bilaterally Neck supple Chest Wall inspection of chest normal and palpation of chest normal Resp normal respiratory effort and clear to auscultation bilaterally Cardio regular rate and regular rhythm GI normal to inspection, nondistended, normoactive bowel sounds and non-tender Palpation: soft Back/Spine Back/Spine Narrative: Tenderness in the left CVA region. Extremity normal to inspection Neuro oriented x3 Sensorium / Orientation: alert Psych mental status grossly normal Skin no rashes or lesions noted MDM MDM MDM Narrative Medical decision making narrative: Patient given ibuprofen. Urinalysis sent. Lab Data Labs: Laboratory Results - last 24 hr 04/16/22 17:05 Urine Color Yellow Urine Clarity Clear Urine pH 6.0 Ur Specific [place] 1.020 Urine Protein 15 H Urine Glucose (UA) Normal Urine Ketones Negative Urine Occult Blood 10 H Urine Nitrite Negative Urine Bilirubin Negative Urine Urobilinogen Normal Ur Leukocyte Esterase Negative Urine RBC 0 SEEN Urine WBC 0 SEEN Ur Squamous Epith Cells 0 SEEN Urine Bacteria 0 SEEN Urine Mucus RARE Treatment and Re-Evaluation Narrative: Urinalysis reveals no sign of infection. Patient has signs and symptoms consistent with COVID and had a positive home test. I do not think she needs a repeat test here. I will write her off work for the next 5 days. I will write her prescription for naproxen. Her back pain has been chronic and ongoing. She has noticed with no definitive cause. I will not write her narcotics for this. Discharge Plan Triage Chief Complaint: General Illness ED Provider: Juliet Sher Dx/Rx/DC Orders Clinical Impression: COVID-19, Chronic back pain Instructions: Coronavirus Disease 2019 (COVID-19): Overview, Coronavirus Disease 2019 (COVID-19): Caring for Yourself or Others, ED Flank Pain, Uncertain Cause Prescriptions: New naproxen [Naprosyn] 500 mg tablet 500 mg PO BID PRN (Reason: pain) Qty: 20 RF: 0 No Action acetaminophen 500 mg Tablet 1,000 mg PO Q6H PRN (Reason: Pain) RF: 0 docusate sodium [Colace] 100 mg capsule 100 mg PO BID Qty: 60 RF: 0 albuterol sulfate 90 mcg/actuation Hfa Aerosol Inhaler 2 puff INHALATION Q6H PRN (Reason: ASTHMA) RF: 0 Stand Alone Forms: ED Work / School Excuse Primary Care Provider: Sailaja Samson Referrals: Sailaja Samson MD [Primary Care Provider] - Disposition Disposition: Home, Self Care
[2022-04-16] MEDS: Ibuprofen 200 MG Tablet 400 MG PO (17:03)
[2022-04-16 17:09] LABS: Bacteria 0 SEEN /hpf (None Seen); Red Blood Cells-Urine 0 SEEN /hpf (0-5); Squamous Epithelial Cells - UA 0 SEEN /hpf (5-10); White Blood Cells 0 SEEN /hpf (0-5)
[2022-04-16 17:20] LABS: Color, Urine Yellow (Yellow); Glucose, Dipstick Normal (Normal); Ketone-Dipstick Negative (Negative); Leukocyte Esterase-Dipstick Negative /ul (Negative); Nitrite-Dipstick Negative (Negative); Occult Blood-Urine 10 /ul (Negative); Protein-Dipstick 15 mg/dl (Negative); Urine Bilirubin Dipstick Negative (Negative); Urine Clarity Clear (Clear); Urine Urobilinogen Normal (Normal)
[2022-04-16 17:33] LABS: Mucous, Urine RARE /hpf (<or=2+)
== END 2022-04-16 18:26 | disposition home or self-care (01) ==
PROVIDERS: Emergency Provider Emergency Medicine; PCP Internal Medicine; Visit Provider Emergency Medicine
DX: U07.1 COVID-19 (principal); M54.9 Dorsalgia, unspecified; G89.29 Other chronic pain; Z87.442 Personal history of urinary calculi; J45.909 Unspecified asthma, uncomplicated; Z87.19 Personal history of other diseases of the digestive system; F17.290 Nicotine dependence, other tobacco product, uncomplicated
CPT/HCPCS: 81001; 99282

== ENCOUNTER 2022-05-10 10:44 | Emergency (ER) | payer MEDICAID, SELFPAY ==
[2022-05-10 10:45] VITALS: BP 113/80; PULSE 102; RESP 18; TEMP 36.6; O2SAT 97; BMI 18.5
--- NOTE | 2022-05-10 11:11 | EKG12_ITS ---
Test Reason : SYNCOPE Blood Pressure : / mmHG Vent. Rate : 062 BPM Atrial Rate : 062 BPM P-R Int : 152 ms QRS Dur : 074 ms QT Int : 400 ms P-R-T Axes : 064 078 065 degrees QTc Int : 406 ms Normal sinus rhythm Normal ECG Confirmed by ROMAN MAURO, DEJON ([id number]), editor publications MARY RAIN ([id number]) on 05/11/2022 11:19:21 A M Referred By: YUKI Confirmed By:MONA OWENS MD
--- NOTE | 2022-05-10 11:11 | CT_ITS ---
STUDY: CT BRAIN WITHOUT CONTRAST REASON FOR EXAM: Female, 31 years old. syncopal episode today, dizzy, headache, nausea/vomiting. RADIATION DOSAGE (If Supplied By Facility): CTDIvol = ( 44.99 ) mGy, DLP = ( 745.49 ) mGycm TECHNIQUE: Transaxial CT imaging of the brain was performed without administration of intravenous contrast material. Individualized dose optimization techniques were used for this CT. COMPARISON: None. FINDINGS: Normal soft tissue structures. Normal calvarium. Normal size ventricles and extra-axial spaces for the patient''s age. Normal white matter tracts of the cerebral hemispheres. Normal basal ganglia and thalami. Normal brainstem. Normal cerebellum. There is no intracranial hemorrhage. There are no findings of an acute ischemic infarction. There is mucoperiosteal inflammatory disease of the paranasal sinuses consistent with mild chronic sinusitis. CT/Brain/Head without Contrast IMPRESSION: Normal unenhanced CT scan of the brain. Electronically Signed: Roel Romo MD at 12:38 EDT ,
--- NOTE | 2022-05-10 11:13 | EDS_ITS ---
HPI History of Present Illness Chief Complaint: Syncope Informant: patient Onset/Context/Timing Onset: Today Narrative Narrative: SubwayPatient presents after near syncopal episode. Patient states he has not felt well for the past couple days Lisa eat. While she was sitting there waiting to pay for her food she became very lightheaded and dizzy. She states usually if this happens she will sit down and it will resolve. She sat down but it did not get better. At one point she states she had to run for the bathroom where she had dry heaves. She states that she was very pale and sweaty. She does complain of intermittent headaches and points to the occiput stating that she gets sharp pain that shoots from up and across the top of her head. She is also been complaining of left-sided abdominal pain for quite some time. She had kidney stones previously that are now resolved. [facility] Medical History Anxiety Arthritis Asthma Back pain Depression Gastric reflux Gastritis History of edema History of irregular heartbeat History of steroid therapy Injury of head and neck Kidney stones Migraine headache Pyelonephritis Renal calculus Shortness of breath on exertion Smoker Substance abuse Wears contact lenses Wears glasses Home Medications acetaminophen 500 mg tablet 1,000 mg PO Q6H PRN Pain 01/26/22 [History Last Taken 01/26/22] docusate sodium 100 mg capsule (Colace) 100 mg PO BID #60 caps 02/05/22 [Rx Last Taken Unknown] albuterol sulfate 90 mcg/actuation aerosol inhaler 2 puff inhalation Q6H PRN ASTHMA 03/21/22 [History Last Taken Unknown] naproxen 500 mg tablet (Naprosyn) 500 mg PO BID PRN pain #20 tabs 04/16/22 [Rx Last Taken Unknown] naproxen 500 mg tablet (Naprosyn) 500 mg PO BID PRN pain #20 tabs 05/10/22 [Rx Last Taken Unknown] omeprazole 40 mg capsule,delayed release 40 mg PO DAILY #14 caps 05/10/22 [Rx Last Taken Unknown] Allergy/AdvReac Type Severity Reaction Status Date / Time No Known Allergies Allergy Verified 05/10/22 10:44 Family History Mother Asthma Arthritis Lung cancer Osteoporosis Thyroid disorder Surgical History History of appendectomy History of esophagogastroduodenoscopy (EGD) History of hysterectomy History of tonsillectomy and adenoidectomy Hx of colonoscopy Hx of dilation and curettage Hx of laparoscopy Hx of thumb surgery Social History Smoking Status: Current every day smoker tobacco type: e-cigarettes alcohol intake: current substance use type: does not use additional social history: no aspirin use no ibuprofen use ROS ROS ED Constitutional Constitutional ED: Denies chills or fever(s) Eyes Eyes: Denies change in vision or discharge from eye(s) ENT ENT ED: Denies discharge from eye(s), rhinorrhea or sore throat Cardiovascular Cardiovascular: Reports racing heartbeat; Denies chest pain or palpitations Respiratory/Chest Respiratory/Chest: Denies cough or dyspnea Gastrointestinal Gastrointestinal: Reports abdominal pain, nausea and vomiting; Denies diarrhea Genitourinary Genitourinary ED: Denies difficulty urinating or dysuria Musculoskeletal Musculoskeletal: Denies back pain or extremity pain Integumentary Denies Abrasions or rash Neurologic Neurologic: Reports headache(s) and weakness Allergic/Immunologic Allergic/Immunologic ED: Denies lip swelling or urticaria EXAM Physical Exam Const Vital Signs: 05/10/22 10:45 05/10/22 11:08 05/10/22 11:56 Temperature 97.8 F Temperature Source Oral Pulse Rate 102 H 76 Respiratory Rate 18 11 L Respiratory Effort Non-Labored Respiratory Pattern Normal Blood Pressure 113/80 103/73 Blood Pressure Mean 91 83 Pulse Ox 97 100 Oxygen Delivery Method Room Air Room Air 05/10/22 12:57 Temperature Temperature Source Pulse Rate 70 Respiratory Rate 15 Respiratory Effort Respiratory Pattern Blood Pressure 107/66 Blood Pressure Mean 79 Pulse Ox 99 Oxygen Delivery Method Room Air Positive well nourished and well developed General Appearance ED: well developed HEENT Reports normocephalic and head/scalp atraumatic Eyes PERRL and EOMs intact bilaterally Neck supple Chest Wall inspection of chest normal and palpation of chest normal Resp normal respiratory effort and clear to auscultation bilaterally Cardio regular rate and regular rhythm GI GI Narrative: Mild left-sided abdominal tenderness to palpation. No guarding or rebound. Palpation: soft Extremity normal to inspection Neuro oriented x3 and no sensory deficits noted Sensorium / Orientation: alert Motor Exam: strength 5/5 throughout Psych Mood & Affect: anxious and tearful Skin no rashes or lesions noted MDM MDM MDM Narrative Medical decision making narrative: Patient given Toradol and Zofran along with IV fluids. Head CT obtained along with EKG. Lab work and urinalysis ordered. Lab Data Attestation: I reviewed the patient's lab results. Labs: Laboratory Results - last 24 hr 05/10/22 05/10/22 05/10/22 11:30 11:30 11:30 WBC 4.6 RBC 4.80 Hgb 14.5 Hct 43.0 MCV 89.6 MCH 30.2 MCHC 33.7 RDW Std Deviation 40.6 RDW Coeff of Tru 12.5 Plt Count 253 MPV 9.1 Immature Gran % (Auto) 0.200 Neut % (Auto) 61.5 Lymph % (Auto) 29.5 [place] % (Auto) 6.9 Eos % (Auto) 1.5 Baso % (Auto) 0.4 Absolute Neuts (auto) 2.9 Absolute Lymphs (auto) 1.37 Nucleated RBC % 0 Sodium 138 Potassium 3.9 Chloride 105 Carbon Dioxide 29.0 Anion Gap 4 L BUN 17 Creatinine 1.00 Estim Creat Clear Calc 61.68 Est GFR (MDRD) Af Amer 83 Est GFR (MDRD) Non-Af 69 BUN/Creatinine Ratio 17.0 Glucose 125 H Calcium 10.0 Total Bilirubin 0.30 Direct Bilirubin 0.13 AST 19 ALT 35 Alkaline Phosphatase 91 Total Protein 8.2 Albumin 4.3 Globulin 3.9 Lipase 59 L Urine Color Yellow Urine Clarity Sl. Cloudy Urine pH 6.0 Ur Specific [place] 1.020 Urine Protein 15 H Urine Glucose (UA) Normal Urine Ketones Negative Urine Occult Blood Negative Urine Nitrite Negative Urine Bilirubin Negative Urine Urobilinogen Normal Ur Leukocyte Esterase 25 H Urine RBC 0 SEEN Urine WBC 0-5 SEEN Ur Squamous Epith Cells 0-5 SEEN Urine Bacteria 2+ Urine Mucus 1+ Radiography Diagnostic Testing: Clinical Impression(s) from Imaging Studies Brain CT 05/10/22 11:11 IMPRESSION: Normal unenhanced CT scan of the brain. Electronically Signed: Roel Romo MD at 12:38 EDT , EKG Initial EKG: Attestation: I personally reviewed and interpreted this EKG as follows: Interpretation: Sinus Rhythm (Sinus at 62 with no acute ischemia.) Treatment and Re-Evaluation Narrative: Repeat evaluation patient still complains of left flank pain. I did review prior work-ups. She has had chronic left flank pain for quite some time. Urinalysis today does show bacteria but no other signs of infection. Her last several urine cultures have not grown anything. In light of this I will send her urine for culture but not treat her with antibiotics. EKG and head CT are unremarkable. Lab work is otherwise normal. Patient is asking for something stronger for pain stating that her doctor writes her for hydrocodone. At this time I do not see anything to justify narcotic prescription. I will write her for Naprosyn along with Prilosec so it does not irritate her stomach. Discharge Plan Triage Chief Complaint: Syncope ED Provider: Juliet Sher Dx/Rx/DC Orders Clinical Impression: Chronic flank pain, Near syncope, Vasovagal episode Instructions: ED Flank Pain, Uncertain Cause, ED Near-Fainting- Vagal Reaction Prescriptions: New naproxen [Naprosyn] 500 mg tablet 500 mg PO BID PRN (Reason: pain) Qty: 20 0RF omeprazole 40 mg capsule,delayed release(DR/EC) 40 mg PO DAILY Qty: 14 0RF No Action acetaminophen 500 mg Tablet 1,000 mg PO Q6H PRN (Reason: Pain) docusate sodium [Colace] 100 mg capsule 100 mg PO BID Qty: 60 0RF albuterol sulfate 90 mcg/actuation Hfa Aerosol Inhaler 2 puff INHALATION Q6H PRN (Reason: ASTHMA) naproxen [Naprosyn] 500 mg tablet 500 mg PO BID PRN (Reason: pain) Qty: 20 0RF Primary Care Provider: Sailaja Samson Referrals: Sailaja Samson MD [Primary Care Provider] - 1 Week Disposition Disposition: Home, Self Care
[2022-05-10] MEDS: 0.9% Normal Saline 1,000 ML 1000 ML IV (11:37)
[2022-05-10] MEDS: Ketorolac 15 MG/ML Vial IV (11:37)
[2022-05-10] MEDS: Ondansetron 4 MG/2 ML Vial IV (11:38)
[2022-05-10 11:41] LABS: Red Blood Cells-Urine 0 SEEN /hpf (0-5)
[2022-05-10 11:46] LABS: Absolute Lymphocyte Count 1.37 X10^3/uL (0.83-4.51); Absolute Neutrophil Count 2.9 X10^3/uL (2.0-7.7); Basophil# 0.02 X10^3/uL; Basophil% 0.4 % (0-1); Eosinophil# 0.07 X10^3/uL; Eosinophils% 1.5 % (0-5); Hemoglobin 14.5 g/dL (12.0-15.0); Lymphocyte # 1.37 X10^3/ul (0.83-4.51); Lymphocyte % 29.5 % (19-41); Mean Corp Hgb Conc 33.7 g/dL (32-36); Mean Corpuscular Hgb 30.2 pg (27.0-32.0); Mean Corpuscular Volume 89.6 fL (81-99); Mean Platelet Vol. 9.1 fl (6.2-12.0); Monocyte# 0.32 X10^3/uL; Monocyte% 6.9 % (0-10); NRBC Flagged by Analyzer 0 % (0-5); Neutrophil # 2.85 X10^3/uL (2.7-7.7); Neutrophil % 61.5 % (47-70); Platelet Count 253 K/mm3 (150-450); RBC Distribution Width CV 12.5 % (11.6-14.6); RBC Distribution Width SD 40.6 fl (35.1-43.9); White Blood Count 4.6 K/mm3 (4.4-11.0)
[2022-05-10 11:47] LABS: Color, Urine Yellow (Yellow); Glucose, Dipstick Normal (Normal); Ketone-Dipstick Negative (Negative); Leukocyte Esterase-Dipstick 25 /ul (Negative); Nitrite-Dipstick Negative (Negative); Occult Blood-Urine Negative /ul (Negative); Protein-Dipstick 15 mg/dl (Negative); Urine Bilirubin Dipstick Negative (Negative); Urine Clarity Sl. Cloudy (Clear); Urine Urobilinogen Normal (Normal)
[2022-05-10 11:56] VITALS: BP 103/73; PULSE 76; RESP 11; O2SAT 100
[2022-05-10 11:56] LABS: Bacteria 2+ /hpf (None Seen); Mucous, Urine 1+ /hpf (<or=2+); Squamous Epithelial Cells - UA 0-5 SEEN /hpf (5-10); White Blood Cells 0-5 SEEN /hpf (0-5)
[2022-05-10 12:02] LABS: AST(SGOT) 19 U/L (15-37); Alanine Aminotransfer ALT/SGPT 35 U/L (13-56); Albumin, Serum 4.3 g/dL (3.2-5.0); Alkaline Phosphatase 91 U/L (45-117); Anion Gap 4 (5-15); BUN 17 mg/dL (7-18); Bilirubin, Direct 0.13 mg/dL (0.00-0.30); Chloride 105 mmol/L (98-107); EST Glomerular Filtration Rate 69 mL/min (>60); Est Glom Filt Rate - Afr Amer 83 mL/min (>60); Estimated Creatinine Clearance 61.68 ml/min; Globulin 3.9 g/dL (2.2-4.2); Glucose 125 mg/dL (74-106); Lipase 59 U/L (73-393); Potassium 3.9 mmol/L (3.5-5.1); Protein, Total 8.2 g/dL (6.4-8.2); Sodium Level 138 mmol/L (136-145)
[2022-05-10 12:57] VITALS: BP 107/66; PULSE 70; RESP 15; O2SAT 99
[2022-05-10] MEDS: 0.9% Normal Saline 1,000 ML 150 ML IV (12:58)
--- NOTE | 2022-05-10 13:04 | ED.RN ---
provider aware that pt is still in pain. no new orders at this time.
[2022-05-10 13:31] VITALS: BP 100/64; PULSE 70; RESP 16; O2SAT 98
== END 2022-05-10 13:36 | disposition home or self-care (01) ==
PROVIDERS: Emergency Provider Emergency Medicine; PCP Internal Medicine; Visit Provider Emergency Medicine
DX: R55 Syncope and collapse (principal); R10.9 Unspecified abdominal pain; F17.290 Nicotine dependence, other tobacco product, uncomplicated; R51.9 Headache, unspecified; Z87.442 Personal history of urinary calculi; F41.9 Anxiety disorder, unspecified; F32.A Depression, unspecified; K21.9 Gastro-esophageal reflux disease without esophagitis; Z87.19 Personal history of other diseases of the digestive system; J45.909 Unspecified asthma, uncomplicated; Z79.899 Other long term (current) drug therapy; G89.29 Other chronic pain
CPT/HCPCS: 70450; 80048; 80076; 81001; 83690; 85025; 87086; 87088; 87811; 93005; 96361; 96374; 96375; 99284; J7030; J2405

== ENCOUNTER 2023-12-19 17:00 | Emergency (ER) | payer MEDICAID, SELFPAY ==
[2023-12-19 17:00] VITALS: BP 115/88; PULSE 92; RESP 16; TEMP 36.6; O2SAT 99; BMI 17.2
--- NOTE | 2023-12-19 20:01 | ED.RN ---
[employer] ARRIVED WITH PTS MEDICATION AND PT WAS NO WHERE TO BE FOUND. ATTEMPTED TO CALL AND LEFT A MESSAGE FOR HER
--- NOTE | 2023-12-19 22:53 | EX.ED.DYSGE1 ---
HPI History of Present Illness Chief Complaint: Cellulitis Narrative Narrative: 33-year-old female presenting with concern for cellulitis on her right thigh. She had a tattoo done by herself on her right thigh. She states she has been spending time in her garage which has a lot of gas and dirt and oil and she is concerned to become infected. She has a history of MRSA. No systemic signs or symptoms. She states he has been scratching and picking at it and she is noted a little bit of drainage. PFSH PFS Medical History Anxiety Arthritis Asthma Back pain Depression Gastric reflux Gastritis History of edema History of irregular heartbeat History of steroid therapy Injury of head and neck Kidney stones Migraine headache Pyelonephritis Renal calculus Shortness of breath on exertion Smoker Substance abuse Wears contact lenses Wears glasses Home Medications albuterol sulfate 90 mcg/actuation aerosol inhaler 2 puff inhalation Q6H PRN ASTHMA 03/21/22 [History Last Taken Unknown] sulfamethoxazole 800 mg-trimethoprim 160 mg tablet (Bactrim DS) 1 tab PO DAILY 10 days #10 tabs 12/19/23 [Rx Last Taken Unknown] Allergy/AdvReac Type Severity Reaction Status Date / Time No Known Allergies Allergy Verified 12/19/23 17:02 Family History Mother Asthma Arthritis Lung cancer Osteoporosis Thyroid disorder Surgical History History of appendectomy History of esophagogastroduodenoscopy (EGD) History of hysterectomy History of tonsillectomy and adenoidectomy Hx of colonoscopy Hx of dilation and curettage Hx of laparoscopy Hx of thumb surgery Social History Smoking Status: Current every day smoker tobacco type: e-cigarettes alcohol intake: current substance use type: does not use additional social history: no aspirin use no ibuprofen use ROS ROS ED Constitutional Constitutional ED: Denies chills, fever(s) or sweats Eyes Eyes: Denies blurry vision or change in vision ENT ENT ED: Denies ear pain or sore throat Cardiovascular Cardiovascular: Denies chest pain, palpitations or racing heartbeat Respiratory/Chest Respiratory/Chest: Denies cough, dyspnea or sputum Gastrointestinal Gastrointestinal: Denies abdominal pain, constipation, diarrhea, nausea or vomiting Genitourinary Genitourinary ED: Denies dysuria, hematuria or urinary frequency Musculoskeletal Musculoskeletal: Denies arthralgias, myalgias or neck pain Integumentary Reports rash; Denies abscess or Abrasions Neurologic Neurologic: Denies headache(s), paresthesias or weakness Psychiatric Psychiatric: Denies anxiety, depression, suicidal ideation or suicidal thoughts Endocrine Endocrinology: Denies polydipsia or polyuria EXAM Physical Exam Const Vital Signs: 12/19/23 17:00 Temperature 97.8 F Temperature Source Temporal Pulse Rate 92 Respiratory Rate 16 Blood Pressure 115/88 H Blood Pressure Mean 97 Pulse Ox 99 Oxygen Delivery Method Room Air Positive well nourished HEENT Reports moist mucous membranes Eyes PERRL Resp normal respiratory effort Cardio regular rate and regular rhythm Extremity Extremity Narrative: There is some erythema and warmth overlying tattoo on the right thigh. There is a small excoriation between the tattoo ink which is about a quarter of a centimeter. There is no fluctuance of the thigh. No crepitance. No obvious drainage. Neuro oriented x3 and CN's II-XII intact bilaterally Psych mental status grossly normal Skin Skin Narrative: As described above MDM MDM MDM Narrative Medical decision making narrative: Patient presenting with cellulitis on her right thigh. She has been picking at this and you could see a small ulcer. She states she has a history of MRSA. She will be started on Bactrim. She is counseled on keeping her wound clean and dry. She requested pain medications but I counseled her that we would be able to give her antibiotics and she can use Tylenol and ibuprofen at home for pain. She is to keep her wound covered while she is wearing pants over does not get excoriated. Return precautions were discussed. Impression: 1. Cellulitis 2. History of MRSA Lab Data Attestation: I reviewed the patient's lab results. Discharge Plan Triage Chief Complaint: Cellulitis ED Provider: Eliezer Banks Dx/Rx/DC Orders Instructions: ED Cellulitis Prescriptions: New sulfamethoxazole-trimethoprim [Bactrim DS] 800-160 mg tablet 1 tab PO DAILY 10 Days Qty: 10 0RF No Action albuterol sulfate 90 mcg/actuation Hfa Aerosol Inhaler 2 puff INHALATION Q6H PRN (Reason: ASTHMA) Primary Care Provider: Sailaja Samson Referrals: Sailaja Samson MD [Primary Care Provider] - Disposition Disposition: Home, Self Care Discharge Date/Time: 12/19/23 19:12
== END 2023-12-19 19:12 | disposition home or self-care (01) ==
PROVIDERS: Emergency Provider Student in an Organized Health Care Education/Training Program; PCP Internal Medicine; Visit Provider Student in an Organized Health Care Education/Training Program
DX: L03.115 Cellulitis of right lower limb (principal); Z86.14 Personal history of Methicillin resistant Staphylococcus aureus infection; Z90.49 Acquired absence of other specified parts of digestive tract; Z90.710 Acquired absence of both cervix and uterus; F17.290 Nicotine dependence, other tobacco product, uncomplicated
CPT/HCPCS: 99282

== ENCOUNTER 2024-01-30 10:29 | Inpatient (IN) | payer MEDICAID, SELFPAY ==
[2024-01-30] VITALS (12 sets, daily range): BP systolic 82–112; BP diastolic 53–82; PULSE 71–869; RESP 14–22; TEMP 36.6–38.6; O2SAT 98–100; BMI 16.8; BMI 17.7
--- NOTE | 2024-01-30 10:52 | EX.ED.DYSGE1 ---
HPI History of Present Illness Chief Complaint: Fever Informant: patient Narrative Narrative: 33-year-old female presenting to the emergency room chief complaint of fever and pain. Patient states she hurts all over like her body got hit by a bus. She states that on Sunday around noon she had to leave work because she developed a frontal headache body aches and then later fever. She states her urine has a strong odor to it. She notes a runny nose from crying. She states she has not been able to sleep more than 20 to 30 minutes. She has been taking ibuprofen 600 mg every 4-6 hours. She states she has been drinking water. She reports that her mom brought her the liquid IV for her water and she drank it like it was nothing. She denies rash sore throat cough diarrhea earache. She took 2 home COVID test that were negative. She went to urgent care and had a flu test that was negative. Patient states she has not felt the sick since she had a kidney infection, kidney stone, and E. coli all at the same time. [facility] Medical History Anxiety Arthritis Asthma Back pain Depression Gastric reflux Gastritis History of edema History of irregular heartbeat History of steroid therapy Injury of head and neck Kidney stones Migraine headache Pyelonephritis Renal calculus Shortness of breath on exertion Smoker Substance abuse Wears contact lenses Wears glasses Home Medications albuterol sulfate 90 mcg/actuation aerosol inhaler 2 puff inhalation Q6H PRN ASTHMA 03/21/22 [History Last Taken Unknown] benzonatate 200 mg capsule 200 mg PO TID PRN COUGHING 01/30/24 [History Last Taken Unknown] celecoxib 200 mg capsule 200 mg PO DAILY ANTI INFLAMMATORY 01/30/24 [History Last Taken Unknown] cyclobenzaprine 10 mg tablet 10 mg PO TID PRN MUSCLE SPASMS 01/30/24 [History Last Taken Unknown] duloxetine 30 mg capsule,delayed release 30 mg PO DAILY DEPRESSION 01/30/24 [History Last Taken Unknown] Allergy/AdvReac Type Severity Reaction Status Date / Time No Known Allergies Allergy Verified 01/30/24 10:33 Family History Mother Asthma Arthritis Lung cancer Osteoporosis Thyroid disorder Surgical History History of appendectomy History of esophagogastroduodenoscopy (EGD) History of hysterectomy History of tonsillectomy and adenoidectomy Hx of colonoscopy Hx of dilation and curettage Hx of laparoscopy Hx of thumb surgery Social History Smoking Status: Current every day smoker tobacco type: e-cigarettes alcohol intake: current substance use type: does not use additional social history: no aspirin use no ibuprofen use ROS ROS ED Constitutional Constitutional ED: Reports chills, fever(s) and sweats; Denies weight loss Eyes Eyes: Denies change in vision or diplopia ENT ENT ED: Denies ear pain, rhinorrhea or sore throat Cardiovascular Cardiovascular: Denies chest pain, orthopnea, palpitations or racing heartbeat Respiratory/Chest Respiratory/Chest: Denies cough, dyspnea or orthopnea Gastrointestinal Gastrointestinal: Reports nausea; Denies abdominal pain, diarrhea or vomiting Genitourinary Genitourinary ED: Reports other Details: Strong smell ; Denies dysuria, hematuria or urinary frequency Musculoskeletal Musculoskeletal: Reports myalgias; Denies arthralgias, back pain or neck pain Integumentary Denies abscess or rash Neurologic Neurologic: Reports headache(s); Denies paresthesias or weakness Psychiatric Psychiatric: Denies anxiety, depression, suicidal ideation or suicidal thoughts Endocrine Endocrinology: Denies polydipsia, polyphagia or polyuria Allergic/Immunologic Allergic/Immunologic ED: Denies mouth swelling, tongue swelling or urticaria EXAM Physical Exam Const Vital Signs: 01/30/24 10:30 01/30/24 10:30 01/30/24 11:19 Temperature 99.8 F H 99.8 F H Temperature Source Temporal Temporal Pulse Rate 123 H 127 H Respiratory Rate 18 18 Respiratory Effort Normal Respiratory Pattern Normal Blood Pressure 112/82 H 112/82 H Blood Pressure Mean 92 92 Pulse Ox 100 100 Oxygen Delivery Method Room Air Room Air 01/30/24 11:33 01/30/24 12:30 01/30/24 12:00 Temperature 100.3 F H 101.4 F H Temperature Source Tympanic Axillary Pulse Rate 107 H 112 H 108 H Respiratory Rate 16 20 H 18 Respiratory Effort Respiratory Pattern Blood Pressure 93/53 L 94/56 L 94/56 L Blood Pressure Mean 66 68 68 Pulse Ox 98 98 98 Oxygen Delivery Method Room Air Room Air Room Air 01/30/24 13:00 01/30/24 14:00 01/30/24 15:07 Temperature 100.3 F H 98.8 F 97.9 F Temperature Source Temporal Oral Oral Pulse Rate 97 98 869 H Respiratory Rate 14 16 16 Respiratory Effort Respiratory Pattern Blood Pressure 99/66 82/56 L 91/76 Blood Pressure Mean 77 64 81 Pulse Ox 100 98 98 Oxygen Delivery Method Room Air Room Air Room Air Positive well nourished and well developed General Appearance ED: well developed HEENT Reports normocephalic, head/scalp atraumatic and moist mucous membranes Eyes PERRL and EOMs intact bilaterally Neck no lymphadenopathy, supple and no JVD Resp normal respiratory effort and clear to auscultation bilaterally Cardio regular rate, regular rhythm and no murmurs Rate: tachycardic GI normal to inspection, nondistended, normoactive bowel sounds and non-tender Palpation: soft Back/Spine no CVA tenderness and normal ROM Extremity normal to inspection General Extremety ED: Negative for edema General Extremity: Negative for edema Neuro oriented x3 and CN's II-XII intact bilaterally Sensorium / Orientation: alert Motor Exam: strength 5/5 throughout Psych Psych Narrative: Patient is shaking with chills and crying. Skin no rashes or lesions noted and no wounds MDM MDM MDM Narrative Medical decision making narrative: Patient received IV fluids Toradol and Zofran. White count is elevated 15.3 hemoglobin 11.1 platelet count 213. INR is 1.4. Lactic acid is 2 creatinine 0.78 anion gap 6 CO2 of 26. Urinalysis demonstrates 2+ bacteria 5-10 white cells 5-10 squamous cells negative nitrates and + leukocyte esterase. Blood and urine cultures were sent. Magnapen interpretation of the chest x-ray is no acute process. COVID influenza and RSV swabs were negative. Patient developed fever received Tylenol as well as ceftriaxone for antibiotic. She also received morphine and Zofran for pain and nausea. A CT of the abdomen pelvis was obtained. This demonstrates some changes of the right kidney which could represent infection/nephronia versus infarcts. I relayed this information and her above workup to the patient. I recommend admission and the patient agrees to this. Spoke with our hospitalist who will be admitting. History & Record Review Discussion w/independent historian: Patient Lab Data Attestation: I reviewed the patient's lab results. Labs: Laboratory Results - last 24 hr 01/30/24 01/30/24 11:00 11:12 WBC 15.3 H RBC 3.61 L Hgb 11.1 L Hct 33.4 L MCV 92.5 MCH 30.7 MCHC 33.2 RDW Std Deviation 43.1 RDW Coeff of Tru 12.7 Plt Count 213 MPV 9.0 Immature Gran % (Auto) 0.700 Neut % (Auto) 87.8 H Lymph % (Auto) 3.3 L [place] % (Auto) 7.9 Eos % (Auto) 0.1 Baso % (Auto) 0.2 Absolute Neuts (auto) 13.4 H Absolute Lymphs (auto) 0.51 L Nucleated RBC % 0 PT 17.3 H INR 1.4 APTT 38.8 H Sodium 136 Potassium 3.9 Chloride 104 Carbon Dioxide 26.0 Anion Gap 6 BUN 9 Creatinine 0.78 Estim Creat Clear Calc 70.44 Est GFR (MDRD) Af Amer 110 Est GFR (MDRD) Non-Af 91 BUN/Creatinine Ratio 11.5 Glucose 121 H Lactic Acid 2.0 Calcium 8.8 Total Bilirubin 0.40 AST 13 L ALT 17 Alkaline Phosphatase 99 Total Protein 7.1 Albumin 2.9 L Globulin 4.2 Albumin/Globulin Ratio 0.7 L Urine Color Yellow Urine Clarity Cloudy Urine pH 6.5 Ur Specific [place] 1.010 Urine Protein 100 H Urine Glucose (UA) Normal Urine Ketones Negative Urine Occult Blood 150 H Urine Nitrite Negative Urine Bilirubin Negative Urine Urobilinogen Normal Ur Leukocyte Esterase 25 H Urine RBC 0-5 SEEN Urine WBC 5-10 SEEN Ur Squamous Epith Cells 5-10 SEEN Urine Bacteria 2+ Urine Mucus 1+ Urine Test Negative Radiography Diagnostic Testing: Clinical Impression(s) from Imaging Studies Chest X-Ray 01/30/24 11:03 IMPRESSION: Normal x-ray examination of the chest. Electronically Signed: Yao Corey MD at 12:01 EDT , Abdomen/Pelvis CT 01/30/24 12:03 IMPRESSION: Multiple peripheral based hypodensities involving the right kidney as described. Multiple areas of focal lobar nephronia versus possible infarcts should be ruled out. Small amount of free fluid in the pelvis. Electronically Signed: Yao Corey MD at 13:21 EDT , Discharge Plan Triage Chief Complaint: Fever ED Provider: Wild Pollard Dx/Rx/DC Orders Prescriptions: No Action albuterol sulfate 90 mcg/actuation Hfa Aerosol Inhaler 2 puff INHALATION Q6H PRN (Reason: ASTHMA) celecoxib 200 mg capsule 200 mg PO DAILY cyclobenzaprine 10 mg tablet 10 mg PO TID PRN (Reason: MUSCLE SPASMS ) duloxetine 30 mg capsule,delayed release(DR/EC) 30 mg PO DAILY benzonatate 200 mg capsule 200 mg PO TID PRN (Reason: COUGHING ) Patient Comments: PT STATES THIS IS A NEWER RX THAT THEY HAVENT TAKEN YET ( OF 01/30/24) Primary Care Provider: Sailaja Samson Referrals: Sailaja Samson MD [Primary Care Provider] -
--- NOTE | 2024-01-30 11:03 | RAD_ITS ---
STUDY: X-RAY CHEST REASON FOR EXAM: Female, 33 years old. Fever TECHNIQUE: Single AP portable view of the chest. COMPARISON: Comparison is made with prior study January 26, 2022. FINDINGS: The lungs are clear and expanded. There is no demonstrated pleural abnormality. Normal size heart. Normal mediastinum and jared. Normal visualized pulmonary arteries. Normal visualized aortic arch and descending thoracic aorta. Normal visualized thoracic spine. Normal visualized ribs, clavicles, and shoulders. There is no demonstrated abnormality of the visualized soft tissue structures of the upper abdomen. RAD/Chest 1 View (Portable) IMPRESSION: Normal x-ray examination of the chest. Electronically Signed: Yao Corey MD at 12:01 EDT ,
[2024-01-30 11:11] LABS: Absolute Lymphocyte Count 0.51 X10^3/uL (0.83-4.51); Absolute Neutrophil Count 13.4 X10^3/uL (2.0-7.7); Basophil# 0.03 X10^3/uL; Basophil% 0.2 % (0-1); Eosinophil# 0.01 X10^3/uL; Eosinophils% 0.1 % (0-5); Hematocrit 33.4 % (37-47); Hemoglobin 11.1 g/dL (12.0-15.0); Lymphocyte # 0.51 X10^3/ul (0.83-4.51); Lymphocyte % 3.3 % (19-41); Mean Corp Hgb Conc 33.2 g/dL (32-36); Mean Corpuscular Hgb 30.7 pg (27.0-32.0); Mean Corpuscular Volume 92.5 fL (81-99); Monocyte# 1.21 X10^3/uL; Monocyte% 7.9 % (0-10); NRBC Flagged by Analyzer 0 % (0-5); Neutrophil # 13.43 X10^3/uL (2.7-7.7); Neutrophil % 87.8 % (47-70); POSITIVE DIFFERENTIAL YES; Platelet Count 213 K/mm3 (150-450); RBC Distribution Width CV 12.7 % (11.6-14.6); RBC Distribution Width SD 43.1 fl (35.1-43.9); Red Blood Count 3.61 M/mm3 (4.2-5.4); White Blood Count 15.3 K/mm3 (4.4-11.0)
[2024-01-30] MEDS: 0.9% Normal Saline (1000mL) 1,000 ML 1000 ML IV (11:11)
[2024-01-30] MEDS: Ketorolac 30 MG/ML Syringe IV (11:12)
[2024-01-30] MEDS: Ondansetron 4 MG/2 ML Vial IV ×2 (11:13→13:32)
[2024-01-30 11:24] LABS: Color, Urine Yellow (Yellow); Glucose, Dipstick Normal (Normal); Ketone-Dipstick Negative (Negative); Leukocyte Esterase-Dipstick 25 /ul (Negative); Nitrite-Dipstick Negative (Negative); Occult Blood-Urine 150 /ul (Negative); Protein-Dipstick 100 mg/dl (Negative); Urine Bilirubin Dipstick Negative (Negative); Urine Clarity Cloudy (Clear); Urine Urobilinogen Normal (Normal); Urine pH 6.5 (5.0 - 8.0)
[2024-01-30 11:26] LABS: ALB/GLOB Ratio 0.7 RATIO (0.9-2.4); AST(SGOT) 13 U/L (15-37); Alanine Aminotransfer ALT/SGPT 17 U/L (13-56); Albumin, Serum 2.9 g/dL (3.2-5.0); Alkaline Phosphatase 99 U/L (45-117); Anion Gap 6 (5-15); BUN 9 mg/dL (7-18); BUN/Creat Ratio 11.5 RATIO (10-20); Calcium,Total 8.8 mg/dL (8.5-10.1); Chloride 104 mmol/L (98-107); Creatinine, Serum 0.78 mg/dL (0.55-1.02); EST Glomerular Filtration Rate 91 mL/min (>60); Est Glom Filt Rate - Afr Amer 110 mL/min (>60); Estimated Creatinine Clearance 70.44 ml/min; Globulin 4.2 g/dL (2.2-4.2); Glucose 121 mg/dL (74-106); Potassium 3.9 mmol/L (3.5-5.1); Protein, Total 7.1 g/dL (6.4-8.2); Sodium Level 136 mmol/L (136-145)
[2024-01-30 11:30] LABS: Bacteria 2+ /hpf (None Seen); Internal QC Validated? YES +Cl - CLEAR BKGD; Mucous, Urine 1+ /hpf (<or=2+); Pregnancy, Urine Negative Negative; Red Blood Cells-Urine 0-5 SEEN /hpf (0-5); Squamous Epithelial Cells - UA 5-10 SEEN /hpf (5-10); White Blood Cells 5-10 SEEN /hpf (0-5)
[2024-01-30 11:54] LABS: International Normalized Ratio 1.4; Prothrombin Time (Protime)PT. 17.3 SECONDS (11.7-14.9)
[2024-01-30 11:55] LABS: Partial Thromboplast Time 38.8 Seconds (24.1-36.2)
--- NOTE | 2024-01-30 12:03 | CT_ITS ---
STUDY: CT ABDOMEN AND PELVIS WITH CONTRAST REASON FOR EXAM: Female, 33 years old. possible renal abscess. Fever and body aches. RADIATION DOSAGE (If Supplied By Facility): CTDIvol = ( 6.61 ) mGy, DLP = ( 475.31 ) mGycm TECHNIQUE: Transaxial images were obtained from the dome of the diaphragm to the symphysis pubis without oral contrast. 100mL Isovue 300 was administered. Sagittal and coronal images were reconstructed. Individualized dose optimization techniques were used for this CT. COMPARISON: Comparison is made with prior study dated February 13, 2022. FINDINGS: Minimal degree of bibasilar atelectasis. The visualized portions of the heart are within normal limits. Normal liver. Normal gallbladder and extrahepatic biliary system. Normal spleen. Normal pancreas. Normal bilateral adrenal glands. Heterogeneous enhancement of the right kidney with involvement of the renal cortex. This is suggestive of a multi lobar nephronia is versus possible infarction. The right kidney is enlarged. Normal left kidney. Normal visualized stomach. Normal small intestine. Normal colon. The appendix is visualized and appears normal. Normal abdominal aorta. Normal inferior vena cava. Normal retroperitoneum. Normal urinary bladder. Small amount of free fluid is seen in the pelvis. Normal abdominal wall. Normal osseous structures. CT/Abdomen/Pelvis W IV Cont ONLY IMPRESSION: Multiple peripheral based hypodensities involving the right kidney as described. Multiple areas of focal lobar nephronia versus possible infarcts should be ruled out. Small amount of free fluid in the pelvis. Electronically Signed: Yao Corey MD at 13:21 EDT ,
[2024-01-30] MEDS: Ceftriaxone 1 GM/50 ML BAG IV (12:39)
[2024-01-30] MEDS: Acetaminophen 500 MG Tablet 1000 MG PO (12:39)
[2024-01-30] MEDS: Morphine 4 MG/ML Syringe IV (13:32)
--- NOTE | 2024-01-30 13:51 | PCM.HP.STD ---
HPI - General General Date of Admission: 01/30/24 Date of Service: 01/30/24 Chief Complaint: Fever/chills, body aches, right sided flank pain HPI Narrative SHRUTI LISA, is a 33 F who presented to [facility] ED on 01/30/2024 with 2-day history of fever/chills, body aches and right-sided flank pain. Patient seen at bedside in the ED. Patient was sitting up in bed and appeared quite distressed. She was crying when I entered the room and was tearful throughout the encounter. She appeared somewhat fatigued. She had a wet towel that she was draping around her head for part of the encounter as well. Patient states that on Sunday she started to develop fevers and chills and general body aches. She then developed right-sided flank pain yesterday and her symptoms generally got much worse. Today she feels about as sick as she has ever felt. States he has a history of kidney stones with a kidney infection about 1 year ago but did not feel this bad with that infection. She started to notice dysuria yesterday evening. Patient is sexually active with her boyfriend only, last intercourse was about 3 to 4 days ago. She had her first child at 20 years old and had a full hysterectomy done at that time. She has a history of herpes but no other STDs, and states her current partner also has only herpes and no other STDs. Patient is quite thin appearing on exam and states she has always been thin. States she has actually gained about 10 pounds recently as she has been trying to eat a little bit more and working out at the gym. She generally was feeling well prior to this Sunday. No other acute concerns at this time. [facility] Medical History Anxiety Arthritis Asthma Back pain Depression Gastric reflux Gastritis History of edema History of irregular heartbeat History of steroid therapy Injury of head and neck Kidney stones Migraine headache Pyelonephritis Renal calculus Shortness of breath on exertion Smoker Substance abuse Wears contact lenses Wears glasses Home Medications albuterol sulfate 90 mcg/actuation aerosol inhaler 2 puff inhalation Q6H PRN ASTHMA 03/21/22 [History Last Taken Unknown] benzonatate 200 mg capsule 200 mg PO TID PRN COUGHING 01/30/24 [History Last Taken Unknown] celecoxib 200 mg capsule 200 mg PO DAILY ANTI INFLAMMATORY 01/30/24 [History Last Taken Unknown] cyclobenzaprine 10 mg tablet 10 mg PO TID PRN MUSCLE SPASMS 01/30/24 [History Last Taken Unknown] duloxetine 30 mg capsule,delayed release 30 mg PO DAILY DEPRESSION 01/30/24 [History Last Taken Unknown] Allergy/AdvReac Type Severity Reaction Status Date / Time No Known Allergies Allergy Verified 01/30/24 10:33 Family History Mother Asthma Arthritis Lung cancer Osteoporosis Thyroid disorder Surgical History History of appendectomy History of esophagogastroduodenoscopy (EGD) History of hysterectomy History of tonsillectomy and adenoidectomy Hx of colonoscopy Hx of dilation and curettage Hx of laparoscopy Hx of thumb surgery Social History Smoking Status: Current every day smoker tobacco type: e-cigarettes alcohol intake: current substance use type: does not use additional social history: no aspirin use no ibuprofen use ROS Constitutional Constitutional: Reports chills, fatigue, fever(s) and malaise; Denies weakness Eyes Eyes: Denies change in vision Cardiovascular Cardiovascular: Denies chest pain, dyspnea on exertion, lightheadedness or syncope Respiratory/Chest Respiratory/Chest: Denies cough, productive cough, shortness of breath at rest or wheezing Gastrointestinal Gastrointestinal: Reports nausea; Denies abdominal pain, constipation, diarrhea or vomiting Genitourinary Genitourinary: Reports dysuria, flank pain and low back pain; Denies difficulty urinating or urinary frequency Musculoskeletal Musculoskeletal: Reports myalgias; Denies arthralgias or back pain Neurologic Neurologic: Denies dizziness, focal weakness or headache(s) Psychiatric Psychiatric: Reports anxiety Endocrine Endocrinology: Denies polydipsia or polyuria Vital Signs Vital Signs Vital Signs: 01/30/24 10:30 01/30/24 10:30 01/30/24 11:19 Temperature 99.8 F H 99.8 F H Temperature Source Temporal Temporal Pulse Rate 123 H 127 H Respiratory Rate 18 18 Respiratory Effort Normal Respiratory Pattern Normal Blood Pressure 112/82 H 112/82 H Blood Pressure Mean 92 92 Pulse Ox 100 100 Oxygen Delivery Method Room Air Room Air 01/30/24 11:33 01/30/24 12:30 01/30/24 12:00 Temperature 100.3 F H 101.4 F H Temperature Source Tympanic Axillary Pulse Rate 107 H 112 H 108 H Respiratory Rate 16 20 H 18 Respiratory Effort Respiratory Pattern Blood Pressure 93/53 L 94/56 L 94/56 L Blood Pressure Mean 66 68 68 Pulse Ox 98 98 98 Oxygen Delivery Method Room Air Room Air Room Air 01/30/24 13:00 Temperature 100.3 F H Temperature Source Temporal Pulse Rate 97 Respiratory Rate 14 Respiratory Effort Respiratory Pattern Blood Pressure 99/66 Blood Pressure Mean 77 Pulse Ox 100 Oxygen Delivery Method Room Air Weight Weight: 43.091 kg Body Mass Index (BMI) 16.8 Physical Exam Const alert and oriented x3 Constitutional Narrative: Young female, thin appearing, appears to be in moderate distress/discomfort that she attributes to generalized body aches and fever/chills, appears moderately fatigued, tearful at multiple points during the encounter, otherwise sitting up in bed and conversing normally. General Appearance: cooperative HEENT normocephalic, head/scalp atraumatic, hearing grossly normal bilaterally and nasal mucous membranes and turbinates normal Eyes PERRL, EOMs intact bilaterally and conjunctivae normal Neck full ROM Chest inspection of chest normal Resp normal respiratory effort, normal air movement, no use of accessory muscles and clear to auscultation bilaterally Cardio regular rate, regular rhythm, no murmurs and peripheral pulses 2+ throughout GI normal to inspection, nondistended, normoactive bowel sounds, soft to palpation, non-tender and non-distended Bladder / Kidney Exam: bladder normal to palpation and CVA tenderness right Back/Spine normal ROM Extremity normal to inspection, full ROM and no pedal edema Skin no rashes or lesions noted Neuro moves all extremities and no focal motor deficits Speech: speech normal Psych mental status grossly normal Mood & Affect: anxious Results Lab / Micro Data 01/30/24 11:00 01/30/24 11:00 Labs: Laboratory Results - last 24 hr 01/30/24 11:00: WBC 15.3 H, RBC 3.61 L, Hgb 11.1 L, Hct 33.4 L, MCV 92.5, MCH 30.7, MCHC 33.2, RDW Std Deviation 43.1, RDW Coeff of Tru 12.7, Plt Count 213, MPV 9.0, Immature Gran % (Auto) 0.700, Neut % (Auto) 87.8 H, Lymph % (Auto) 3.3 L, [place] % (Auto) 7.9, Eos % (Auto) 0.1, Baso % (Auto) 0.2, Absolute Neuts (auto) 13.4 H, Absolute Lymphs (auto) 0.51 L, Nucleated RBC % 0, PT 17.3 H, INR 1.4, APTT 38.8 H, Sodium 136, Potassium 3.9, Chloride 104, Carbon Dioxide 26.0, Anion Gap 6, BUN 9, Creatinine 0.78, Estim Creat Clear Calc 70.44, Est GFR (MDRD) Af Amer 110, Est GFR (MDRD) Non-Af 91, BUN/Creatinine Ratio 11.5, Glucose 121 H, Lactic Acid 2.0, Calcium 8.8, Total Bilirubin 0.40, AST 13 L, ALT 17, Alkaline Phosphatase 99, Total Protein 7.1, Albumin 2.9 L, Globulin 4.2, Albumin/Globulin Ratio 0.7 L 01/30/24 11:12: Urine Color Yellow, Urine Clarity Cloudy, Urine pH 6.5, Ur Specific [place] 1.010, Urine Protein 100 H, Urine Glucose (UA) Normal, Urine Ketones Negative, Urine Occult Blood 150 H, Urine Nitrite Negative, Urine Bilirubin Negative, Urine Urobilinogen Normal, Ur Leukocyte Esterase 25 H, Urine RBC 0-5 SEEN, Urine WBC 5-10 SEEN, Ur Squamous Epith Cells 5-10 SEEN, Urine Bacteria 2+, Urine Mucus 1+, Urine Test Negative Micro: Microbiology 01/30/24 11:12 Mucosa - Nose SARS-CoV-2, Influenza & RSV (PCR) - Final Imaging Radiology Impression Chest X-Ray 01/30/24 11:03 IMPRESSION: Normal x-ray examination of the chest. Electronically Signed: Yao Corey MD at 12:01 EDT , Abdomen/Pelvis CT 01/30/24 12:03 IMPRESSION: Multiple peripheral based hypodensities involving the right kidney as described. Multiple areas of focal lobar nephronia versus possible infarcts should be ruled out. Small amount of free fluid in the pelvis. Electronically Signed: Yao Corey MD at 13:21 EDT , Assessment & Plan Assessment/Plan (1) Pyelonephritis: PLAN: Plan Patient is a 33-year-old female who presented [facility] ED on 01/30/2024 with fever/chills, body aches and right-sided flank pain. 1. Acute pyelonephritis/nephronia, concern for possible renal infarcts ? CT abdomen pelvis with IV contrast showed multiple areas of focal lobar nephronia versus possible infarcts in the right kidney, as well as a small amount of free fluid in the pelvis. ? Patient febrile, mildly hypotensive, and tachycardic in the ED with leukocytosis noted and suspected urinary source. However, no endorgan dysfunction noted so sepsis was ruled out. ? UA with negative nitrites, 25 leukocyte esterase, 5-10 WBCs, 2+ bacteria. Urine culture and blood cultures pending. Minimal previous urine culture data available. ? Patient was given 1 L normal saline in ED with mild improvement in her blood pressures, but continued to appear dry on exam. Gave another 1 L of IV fluids prior to transferring over to the floor. ? Given concern for possible nephronia, will treat with IV Zosyn and IV vancomycin for now. Urology consulted for further recommendations. No need for further IV fluids, encourage p.o. intake. Follow-up urine culture and blood cultures. Pain management with IV Toradol as needed. 2. Mild anemia ? Hemoglobin 11.1 on admit, MCV 92. Last hemoglobin values in 2021 were around 14. Patient with history of full hysterectomy, no longer having menstrual cycles. Denies any blood loss that she is aware of. ? Iron studies show low iron, low iron saturation but slightly elevated ferritin which appears more consistent with anemia of chronic disease. B12 level borderline low, folate level normal. ? Follow-up a.m. CBC. Can consider B12 replacement as needed. 3. Mildly elevated INR ? INR 1.4 on admit. Unclear etiology. Follow-up a.m. INR. 4. Concern for malnutrition ? BMI 17.8 on admit. Albumin 2.9. Patient reports always being thin, notes that she has been eating more recently and reportedly has gained 5 to 10 pounds in the past few months. Nutrition consulted. 5. History of full hysterectomy ? Patient had a full hysterectomy done for unclear reasons after her first child was born at age 20. DVT prophylaxis: Lovenox CODE STATUS: Full code, verified Expect disposition: Home, 2 to 3 days Total clinical time spent by myself addressing the patient's medical issues, reviewing all the data, and collaborating with patient's care team: 55 minutes. Charges/Coding Visit Charges Inpatient E&M: 60611 Init Hosp L2
[2024-01-30] MEDS: Piperacil/Tazobactam 4.5 GM in 0.9% Normal Saline (100mL MB+) 100 ML IV (14:53)
[2024-01-30 15:06] LABS: Reflex Lactate? Y
[2024-01-30] MEDS: Lactated Ringers 1,000 ML 500 ML IV (15:42)
[2024-01-30 16:33] LABS: Lactic Acid 1.2 mmol/L (0.4-1.9)
[2024-01-30] MEDS: Vancomycin IV 1,000 MG/200 ML BAG 200 MG IV (18:00)
[2024-01-30] MEDS: Ketorolac 15 MG/ML Vial IV (18:11)
[2024-01-30] MEDS: 0.9% Saline Lock 10 ML Syringe IV (18:11)
[2024-01-30] MEDS: proCHLORPERazine 10 MG/2 ML Vial 5 MG IV (18:11)
--- NOTE | 2024-01-30 18:28 | PCM.RX.CS ---
Consult Antibiotic Management Pharmacy has been consulted to manage selected antibiotic: Vancomycin Type of Intervention Type of Consult: Labs Labs: Sodium 136 mmol/L (136-145) 01/30/24 11:00 Potassium 3.9 mmol/L (3.5-5.1) 01/30/24 11:00 Chloride 104 mmol/L (98-107) 01/30/24 11:00 Carbon Dioxide 26.0 mmol/L (21.0-32.0) 01/30/24 11:00 Anion Gap 6 (5-15) 01/30/24 11:00 BUN 9 mg/dL (7-18) 01/30/24 11:00 Creatinine 0.78 mg/dL (0.55-1.02) 01/30/24 11:00 Est GFR (MDRD) Af Amer 110 mL/min (>60) 01/30/24 11:00 Est GFR (MDRD) Non-Af 91 mL/min (>60) 01/30/24 11:00 BUN/Creatinine Ratio 11.5 RATIO (10-20) 01/30/24 11:00 Glucose 121 mg/dL (74-106) H 01/30/24 11:00 Microbiology Microbiology: Microbiology 01/30/24 11:12 Mucosa - Nose SARS-CoV-2, Influenza & RSV (PCR) - Final Goal Trough Goal Trough: 15-20 mcg/mL Pharmacy Plan for Drug Dosing Pharmacy Plan for Drug Dosing: START IV VANCOMYCIN Consulting Physician: Dr. Ibanez Indication: Pyelonephritis Goal Trough: 15-20 SrCr: 0.78 CrCl: 70 mL/min Comments: Patient had loading dose of 1g iv x1 ordered and administered 01/29 @1800 Vancomycin Dose: 750mg IV Q12hr to start 01/31/24 @0600 Pending Level: 02/01/24 @0530, prior to 4th total dose per protocol Pharmacy Service will continue to monitor and adjust dosing as required.
[2024-01-30] MEDS: Acetaminophen 325 MG Tablet 650 MG PO (20:27)
[2024-01-30] MEDS: MELATONIN 3 MG TABLET PO (20:27)
[2024-01-30 21:07] LABS: Ferritin 307 ng/mL (8-252); Iron 14 ug/dL (50-170); Iron Binding Capacity,Total 253 ug/dL (250-450); PERCENT IRON SATURATION 5.5 % (15.0-55.0); Thyroid Stim Hormone (TSH) 0.21 uIU/mL (0.358-3.74)
[2024-01-30 21:15] LABS: Vitamin B12 219 pg/mL (211-911)
[2024-01-30] MEDS: Piperacil/Tazobactam 3.375 GM in 0.9% Normal Saline (50mL MB+) 50 ML IV (22:51)
[2024-01-31] MEDS: Acetaminophen 325 MG Tablet 650 MG PO ×4 (00:28→18:10)
[2024-01-31] MEDS: oxyCODONE 5 MG Tablet PO ×5 (00:29→23:50)
[2024-01-31] MEDS: Ketorolac 30 MG/ML Syringe 15 MG IV (00:29)
[2024-01-31] MEDS: 0.9% Saline Lock 10 ML Syringe IV ×3 (00:30→18:09)
[2024-01-31 05:00] VITALS: BP 91/61; PULSE 55; RESP 18; TEMP 37.1; O2SAT 94
[2024-01-31] MEDS: Vancomycin HCl 750 MG in 0.9% Normal Saline (250mL Bag) 250 ML 250 MG IV ×2 (05:32→18:11)
[2024-01-31] MEDS: Piperacil/Tazobactam 3.375 GM in 0.9% Normal Saline (50mL MB+) 50 ML IV ×3 (06:55→21:28)
[2024-01-31 07:37] LABS: Hemoglobin 10.4 g/dL (12.0-15.0); Mean Corp Hgb Conc 32.5 g/dL (32-36); Mean Corpuscular Hgb 30.4 pg (27.0-32.0); Mean Corpuscular Volume 93.6 fL (81-99); Mean Platelet Vol. 9.4 fl (6.2-12.0); Platelet Count 200 K/mm3 (150-450); RBC Distribution Width CV 12.9 % (11.6-14.6); RBC Distribution Width SD 44.3 fl (35.1-43.9); Red Blood Count 3.42 M/mm3 (4.2-5.4); White Blood Count 14.1 K/mm3 (4.4-11.0)
--- NOTE | 2024-01-31 07:48 | PCM.CONS.U ---
HPI Consult Data Date of Consult: 01/31/24 HPI Narrative Reason for Consultation: Pyelonephritis HPI Narrative: SHRUTI LISA, is a 33 F who presents to the emergency room with fevers and playing she says she hurts all over her body she had to leave work because of this also urine had a strong odor to it she has been admitted for an infection she had had a CAT scan done that demonstrated some areas of opacity in the right kidney and appears that she has focal pyelonephritis of the right kidney continue with IV antibiotics await urine culture I reviewed the CAT scan this does not look like infarct looks just like patchy infection from pyelonephritis does not look like infarct to me. Continue with IV antibiotics no intervention is necessary from urology standpoint. Once cultures are back and sensitivities back culture according to the tailor the antibiotics according to culture results. Patient with focal lobar nephronia from infection does not look like infarct. Continue with IV antibiotics call me with questions no intervention needed from urology. [facility] Medical History Anxiety Arthritis Asthma Back pain Depression Gastric reflux Gastritis History of edema History of irregular heartbeat History of steroid therapy Injury of head and neck Kidney stones Migraine headache Pyelonephritis Renal calculus Shortness of breath on exertion Smoker Substance abuse Wears contact lenses Wears glasses Home Medications albuterol sulfate 90 mcg/actuation aerosol inhaler 2 puff inhalation Q6H PRN ASTHMA 03/21/22 [History Last Taken Unknown] benzonatate 200 mg capsule 200 mg PO TID PRN COUGHING 01/30/24 [History Last Taken Unknown] celecoxib 200 mg capsule 200 mg PO DAILY ANTI INFLAMMATORY 01/30/24 [History Last Taken Unknown] cyclobenzaprine 10 mg tablet 10 mg PO TID PRN MUSCLE SPASMS 01/30/24 [History Last Taken Unknown] duloxetine 30 mg capsule,delayed release 30 mg PO DAILY DEPRESSION 01/30/24 [History Last Taken Unknown] Allergy/AdvReac Type Severity Reaction Status Date / Time No Known Allergies Allergy Verified 01/30/24 10:33 Family History Mother Asthma Arthritis Lung cancer Osteoporosis Thyroid disorder Surgical History History of appendectomy History of esophagogastroduodenoscopy (EGD) History of hysterectomy History of tonsillectomy and adenoidectomy Hx of colonoscopy Hx of dilation and curettage Hx of laparoscopy Hx of thumb surgery Social History Smoking Status: Current every day smoker tobacco type: e-cigarettes alcohol intake: current substance use type: does not use additional social history: no aspirin use no ibuprofen use Lab / Micro Data 01/31/24 06:56 01/30/24 11:00 Labs: Laboratory Results - last 24 hr 01/30/24 11:00: WBC 15.3 H, RBC 3.61 L, Hgb 11.1 L, Hct 33.4 L, MCV 92.5, MCH 30.7, MCHC 33.2, RDW Std Deviation 43.1, RDW Coeff of Tru 12.7, Plt Count 213, MPV 9.0, Immature Gran % (Auto) 0.700, Neut % (Auto) 87.8 H, Lymph % (Auto) 3.3 L, [place] % (Auto) 7.9, Eos % (Auto) 0.1, Baso % (Auto) 0.2, Absolute Neuts (auto) 13.4 H, Absolute Lymphs (auto) 0.51 L, Nucleated RBC % 0, PT 17.3 H, INR 1.4, APTT 38.8 H, Sodium 136, Potassium 3.9, Chloride 104, Carbon Dioxide 26.0, Anion Gap 6, BUN 9, Creatinine 0.78, Estim Creat Clear Calc 70.44, Est GFR (MDRD) Af Amer 110, Est GFR (MDRD) Non-Af 91, BUN/Creatinine Ratio 11.5, Glucose 121 H, Lactic Acid 2.0, Calcium 8.8, Iron 14 L, TIBC 253, Iron Saturation 5.5 L, Ferritin 307 H, Total Bilirubin 0.40, AST 13 L, ALT 17, Alkaline Phosphatase 99, Total Protein 7.1, Albumin 2.9 L, Globulin 4.2, Albumin/Globulin Ratio 0.7 L, Folate 17.10, TSH 0.21 L 01/30/24 11:12: Urine Color Yellow, Urine Clarity Cloudy, Urine pH 6.5, Ur Specific [place] 1.010, Urine Protein 100 H, Urine Glucose (UA) Normal, Urine Ketones Negative, Urine Occult Blood 150 H, Urine Nitrite Negative, Urine Bilirubin Negative, Urine Urobilinogen Normal, Ur Leukocyte Esterase 25 H, Urine RBC 0-5 SEEN, Urine WBC 5-10 SEEN, Ur Squamous Epith Cells 5-10 SEEN, Urine Bacteria 2+, Urine Mucus 1+, Urine Test Negative 01/30/24 15:47: Lactic Acid 1.2 01/30/24 20:44: Vitamin B12 219 01/31/24 06:56: WBC 14.1 H, RBC 3.42 L, Hgb 10.4 L, Hct 32.0 L, MCV 93.6, MCH 30.4, MCHC 32.5, RDW Std Deviation 44.3 H, RDW Coeff of Tru 12.9, Plt Count 200, MPV 9.4 Micro: Microbiology 01/30/24 11:12 Mucosa - Nose SARS-CoV-2, Influenza & RSV (PCR) - Final Imaging Radiology Impression Chest X-Ray 01/30/24 11:03 IMPRESSION: Normal x-ray examination of the chest. Electronically Signed: Yao Corey MD at 12:01 EDT , Abdomen/Pelvis CT 01/30/24 12:03 IMPRESSION: Multiple peripheral based hypodensities involving the right kidney as described. Multiple areas of focal lobar nephronia versus possible infarcts should be ruled out. Small amount of free fluid in the pelvis. Electronically Signed: Yao Corey MD at 13:21 EDT ,
[2024-01-31] MEDS: DULoxetine Hcl 30 MG Capsule PO (07:55)
[2024-01-31] MEDS: Enoxaparin 40 MG/0.4 ML Syringe SC (07:55)
[2024-01-31 08:03] LABS: Anion Gap 6 (5-15); BUN 7 mg/dL (7-18); Calcium,Total 8.6 mg/dL (8.5-10.1); Chloride 110 mmol/L (98-107); Creatinine, Serum 0.64 mg/dL (0.55-1.02); EST Glomerular Filtration Rate 114 mL/min (>60); Est Glom Filt Rate - Afr Amer 138 mL/min (>60); Estimated Creatinine Clearance 90.64 ml/min; Glucose 106 mg/dL (74-106); Potassium 3.8 mmol/L (3.5-5.1); Sodium Level 140 mmol/L (136-145)
[2024-01-31 09:18] LABS: International Normalized Ratio 1.4
[2024-01-31 09:30] VITALS: BP 98/66; PULSE 67; RESP 18; TEMP 36.6; O2SAT 97
[2024-01-31 09:31] VITALS: BP 98/66; PULSE 67; RESP 18; TEMP 36.6; O2SAT 97
[2024-01-31] MEDS: proCHLORPERazine 10 MG/2 ML Vial 5 MG IV ×2 (10:13→18:09)
--- NOTE | 2024-01-31 10:55 | CASEMGMT ---
RN CM Face to Face with patient for initial transition planning/care coordination assessment. RN CM introduced self and role at [facility]. Patient lying in bed, alert and oriented. Patient willing to participate in assessment and is able to answer all questions appropriately. Care providers, pharmacy, and demographics verified. PCP: [facility] Specialists: none Preferred Pharmacy: [facility] Insurance: [employer] Prescription Benefit: yes Living Will/HPOA: none LNOK: parents Living Arrangements: Patient lives with 13yo son that patient' mother is currenly caring for. Patient lives in a 2nd floor apartment. Patient is independent and able to ambulate stairs. Transportation: self, boyfriend, mother DME/HHC: Patient denies DME in the home. No previous HHC or SNF. Patient wishes to discharge home, denies need for home health at this time. Patient states she has no further needs or concerns at this time. CM to follow for discharge planning needs that may arise. Disposition Plan: Patient to discharge home with family support and follow-up plans in place. Farrah TORRES, RN, CM
--- NOTE | 2024-01-31 13:58 | PN_ITS ---
Subjective Subjective Patient seen and examined. She still complained of right flank pain. She denied any fever or chills, nausea or vomiting or burning with urination. Review of systems otherwise negative. She has remained hemodynamically stable. Objective Data Objective Data Vital Signs: Vital Signs Temp Pulse Resp BP Pulse Ox O2 Del Method 97.9 F 67 18 98/66 97 Room Air 01/31/24 09:31 01/31/24 09:31 01/31/24 09:31 01/31/24 09:31 01/31/24 09:31 01/31/24 09:31 Oxygen Delivery Method Room Air Weight: 100 lb 4.965 oz Body Mass Index (BMI) 17.7 Intake & Output: Intake and Output for Last 24 Hours 01/29/24 01/30/24 01/31/24 23:59 23:59 23:59 Intake Total 2308.33 / 3158.33 1705 / 1705 Output Total 0 / 0 Balance 2308.33 / 3158.33 1705 / 1705 Lab / Micro Data 01/31/24 06:56 01/31/24 06:56 Labs: Laboratory Results - last 24 hr 01/30/24 11:00: Iron 14 L, TIBC 253, Iron Saturation 5.5 L, Ferritin 307 H, Folate 17.10, TSH 0.21 L 01/30/24 15:47: Lactic Acid 1.2 01/30/24 20:44: Vitamin B12 219 01/31/24 06:56: WBC 14.1 H, RBC 3.42 L, Hgb 10.4 L, Hct 32.0 L, MCV 93.6, MCH 30.4, MCHC 32.5, RDW Std Deviation 44.3 H, RDW Coeff of Tru 12.9, Plt Count 200, MPV 9.4, PT 17.0 H, INR 1.4, Sodium 140, Potassium 3.8, Chloride 110 H, Carbon Dioxide 24.0, Anion Gap 6, BUN 7, Creatinine 0.64, Estim Creat Clear Calc 90.64, Est GFR (MDRD) Af Amer 138, Est GFR (MDRD) Non-Af 114, BUN/Creatinine Ratio 11.0, Glucose 106, Calcium 8.6 Micro: Microbiology 01/30/24 11:12 Urine, Catheterized Urine Culture - Preliminary Presumptive E. coli 01/30/24 11:12 Mucosa - Nose SARS-CoV-2, Influenza & RSV (PCR) - Final Physical Exam Const alert, oriented x3, no apparent distress and well nourished General Appearance: cooperative HEENT head/scalp atraumatic, moist oral mucous membranes and oropharynx normal Eyes PERRL and EOMs intact bilaterally Neck no lymphadenopathy, supple and no JVD Lymph Lymphatic: no lymphadenopathy noted and no lymphedema noted Resp normal respiratory effort, normal air movement and clear to auscultation bilaterally Cardio regular rate, regular rhythm, S1 normal heart sound, S2 normal heart sound and no murmurs GI normal to inspection, nondistended, normoactive bowel sounds, soft to palpation and non-distended GI Narrative: has right sided flank pain Extremity normal capillary refill, no clubbing, cyanosis or edema and no calf tenderness General Extremity: no tenderness to palpation of joints or extremities Skin General Skin Exam: no breakdown Neuro CN's II-XII intact bilaterally, no focal motor deficits, no sensory deficits noted and deep tendon reflexes 2+ bilaterally Motor Exam: strength 5/5 throughout Psych thought process normal and cooperative Appearance: appropriate Assessment & Plan Assessment/Plan (1) Pyelonephritis: PLAN: Plan #Acute right sided pyelonephritis * fever and tachycardia have resolved. * CT abdomen and pelvis showed multiple areas of focal nephronia vs possible infarcts in the right kidney * urology reviewed her and recommends medical management, no indication for surgical intervention * urinalysis showed evidence of UTI * on IV vancomycin and zosyn. * on IV toradol * #History of hysterectomy: stable # DVT prophylaxis: Lovenox Charges/Coding Visit Charges Inpatient E&M: 55896 Subs Hosp L2
[2024-01-31 15:30] VITALS: BP 94/66; PULSE 68; RESP 18; TEMP 36.7; O2SAT 98
[2024-01-31 21:18] VITALS: BP 95/58; PULSE 71; RESP 18; TEMP 36.6; O2SAT 98
[2024-01-31] MEDS: Ketorolac 15 MG/ML Vial IV (21:23)
[2024-02-01 03:50] VITALS: BP 111/75; PULSE 67; RESP 18; TEMP 36.9; O2SAT 98
[2024-02-01] MEDS: Acetaminophen 325 MG Tablet 650 MG PO ×4 (03:55→18:28)
[2024-02-01] MEDS: Ondansetron 4 MG/2 ML Vial IV ×2 (03:56→18:28)
[2024-02-01] MEDS: oxyCODONE 5 MG Tablet PO ×5 (03:56→23:11)
[2024-02-01 06:06] LABS: Absolute Neutrophil Count 7.2 X10^3/uL (2.0-7.7); Basophil# 0.03 X10^3/uL; Basophil% 0.3 % (0-1); Eosinophil# 0.09 X10^3/uL; Hematocrit 28.2 % (37-47); Hemoglobin 9.3 g/dL (12.0-15.0); Lymphocyte % 10.6 % (19-41); Mean Corpuscular Hgb 30.5 pg (27.0-32.0); Mean Corpuscular Volume 92.5 fL (81-99); Mean Platelet Vol. 9.5 fl (6.2-12.0); Monocyte# 1.06 X10^3/uL; Monocyte% 11.3 % (0-10); NRBC Flagged by Analyzer 0 % (0-5); Neutrophil # 7.18 X10^3/uL (2.7-7.7); Neutrophil % 76.4 % (47-70); Platelet Count 205 K/mm3 (150-450); RBC Distribution Width CV 12.8 % (11.6-14.6); RBC Distribution Width SD 43.5 fl (35.1-43.9); Red Blood Count 3.05 M/mm3 (4.2-5.4); White Blood Count 9.4 K/mm3 (4.4-11.0)
[2024-02-01 06:32] LABS: Anion Gap 6 (5-15); BUN 8 mg/dL (7-18); BUN/Creat Ratio 13.2 RATIO (10-20); Calcium,Total 8.4 mg/dL (8.5-10.1); Chloride 105 mmol/L (98-107); EST Glomerular Filtration Rate 122 mL/min (>60); Est Glom Filt Rate - Afr Amer 147 mL/min (>60); Estimated Creatinine Clearance 96.69 ml/min; Glucose 91 mg/dL (74-106); Potassium 3.7 mmol/L (3.5-5.1); Sodium Level 138 mmol/L (136-145)
[2024-02-01 06:34] LABS: Vancomycin, Trough Level 6.5 ug/mL (5.0-15.0)
[2024-02-01] MEDS: Piperacil/Tazobactam 3.375 GM in 0.9% Normal Saline (50mL MB+) 50 ML IV ×3 (06:43→21:57)
--- NOTE | 2024-02-01 06:48 | PCM.RX.CS ---
Consult Antibiotic Management Pharmacy has been consulted to manage selected antibiotic: Vancomycin Type of Intervention Type of Consult: Follow-up Suspected Infection Suspected Infection: Other (pyelonephritis) Labs Labs: Sodium 138 mmol/L (136-145) 02/01/24 05:40 Potassium 3.7 mmol/L (3.5-5.1) 02/01/24 05:40 Chloride 105 mmol/L (98-107) 02/01/24 05:40 Carbon Dioxide 27.0 mmol/L (21.0-32.0) 02/01/24 05:40 Anion Gap 6 (5-15) 02/01/24 05:40 BUN 8 mg/dL (7-18) 02/01/24 05:40 Creatinine 0.60 mg/dL (0.55-1.02) 02/01/24 05:40 Est GFR (MDRD) Af Amer 147 mL/min (>60) 02/01/24 05:40 Est GFR (MDRD) Non-Af 122 mL/min (>60) 02/01/24 05:40 BUN/Creatinine Ratio 13.2 RATIO (10-20) 02/01/24 05:40 Glucose 91 mg/dL (74-106) 02/01/24 05:40 Vancomycin Trough 6.5 ug/mL (5.0-15.0) 02/01/24 05:40 Microbiology Microbiology: Microbiology 01/30/24 11:12 Urine, Catheterized Urine Culture - Preliminary Presumptive E. coli 01/30/24 11:12 Mucosa - Nose SARS-CoV-2, Influenza & RSV (PCR) - Final Pharmacy Plan for Drug Dosing Pharmacy Plan for Drug Dosing: VANCOMYCIN LEVEL RECEIVED Current Vancomycin Dose: 750MG Q12 Number of Doses Received: 3 Vancomycin Level: 6.5 MG/DL Hours Since Last Dose: 11.5 Renal Function: SCR 0.6 MG/DL, CRCL 96 ML/MIN Renal Function Trend: stable Lab/Micro: urine cx preliminary E. coli Vancomycin Plan/Comments: 11.5 hour trough is subtherapeutic (goal 15-20 mg/dL). Will increase dose to 1500mg Q12 and get a trough prior to 4th dose. Pending Level: 02/02/24 @ 1830 Pharmacy Service will continue to monitor and adjust dosing as required.
[2024-02-01] MEDS: Ketorolac 15 MG/ML Vial IV ×2 (07:44→21:57)
[2024-02-01] MEDS: Vancomycin HCl 1,500 MG in 0.9% Normal Saline (500mL Bag) 500 ML 250 MG IV (07:44)
[2024-02-01 08:34] VITALS: BP 99/57; PULSE 70; RESP 18; TEMP 36.6; O2SAT 100
[2024-02-01 09:50] VITALS: BP 101/63; PULSE 69; RESP 18; TEMP 36.3; O2SAT 100
[2024-02-01] MEDS: DULoxetine Hcl 30 MG Capsule PO (10:11)
--- NOTE | 2024-02-01 12:27 | PN_ITS ---
Subjective Subjective Patient seen and examined. She still complained of right flank pain. She had no other complaints and review of systems otherwise negative. Urine culture growing E. coli. Objective Data Objective Data Vital Signs: Vital Signs Temp Pulse Resp BP Pulse Ox O2 Del Method 97.4 F L 69 18 101/63 100 Room Air 02/01/24 09:50 02/01/24 09:50 02/01/24 09:50 02/01/24 09:50 02/01/24 09:50 02/01/24 09:50 Oxygen Delivery Method Room Air Weight: 100 lb 4.965 oz Body Mass Index (BMI) 17.7 Intake & Output: Intake and Output for Last 24 Hours 01/30/24 01/31/24 02/01/24 23:59 23:59 23:59 Intake Total 2308.33 / 3158.33 2260 / 2260 930 / 930 Output Total 0 / 0 Balance 2308.33 / 3158.33 2260 / 2260 930 / 930 Lab / Micro Data 02/01/24 05:40 02/01/24 05:40 Labs: Laboratory Results - last 24 hr 02/01/24 05:40: WBC 9.4, RBC 3.05 L, Hgb 9.3 L, Hct 28.2 L, MCV 92.5, MCH 30.5, MCHC 33.0, RDW Std Deviation 43.5, RDW Coeff of Tru 12.8, Plt Count 205, MPV 9.5, Immature Gran % (Auto) 0.400, Neut % (Auto) 76.4 H, Lymph % (Auto) 10.6 L, [place] % (Auto) 11.3 H, Eos % (Auto) 1.0, Baso % (Auto) 0.3, Absolute Neuts (auto) 7.2, Absolute Lymphs (auto) 1.00, Nucleated RBC % 0, Sodium 138, Potassium 3.7, Chloride 105, Carbon Dioxide 27.0, Anion Gap 6, BUN 8, Creatinine 0.60, Estim Creat Clear Calc 96.69, Est GFR (MDRD) Af Amer 147, Est GFR (MDRD) Non-Af 122, BUN/Creatinine Ratio 13.2, Glucose 91, Calcium 8.4 L, Vancomycin Trough 6.5 Micro: Microbiology 01/30/24 11:12 Urine, Catheterized Urine Culture - Final Presumptive E. coli 01/30/24 11:12 Mucosa - Nose SARS-CoV-2, Influenza & RSV (PCR) - Final Physical Exam Const alert, oriented x3, no apparent distress and well nourished General Appearance: cooperative HEENT normocephalic, head/scalp atraumatic, hearing grossly normal bilaterally, nasal mucous membranes and turbinates normal, moist oral mucous membranes and oropharynx normal Eyes PERRL, EOMs intact bilaterally and conjunctivae normal Neck full ROM, no lymphadenopathy, supple and no JVD Lymph Lymphatic: no lymphadenopathy noted and no lymphedema noted Chest inspection of chest normal Resp normal respiratory effort, normal air movement, no use of accessory muscles and clear to auscultation bilaterally Cardio regular rate, regular rhythm, S1 normal heart sound, S2 normal heart sound, no murmurs and peripheral pulses 2+ throughout GI normal to inspection, nondistended, normoactive bowel sounds, soft to palpation, non-tender and non-distended GI Narrative: still has right sided flank pain Bladder / Kidney Exam: bladder normal to palpation and CVA tenderness right Back/Spine normal ROM Extremity normal to inspection, full ROM, normal capillary refill, no clubbing, cyanosis or edema, no calf tenderness and no pedal edema General Extremity: no tenderness to palpation of joints or extremities Skin no rashes or lesions noted General Skin Exam: no breakdown Neuro CN's II-XII intact bilaterally, moves all extremities, no focal motor deficits, no sensory deficits noted and deep tendon reflexes 2+ bilaterally Speech: speech normal Motor Exam: strength 5/5 throughout Psych mental status grossly normal, thought process normal and cooperative Appearance: appropriate Mood & Affect: anxious Assessment & Plan Assessment/Plan (1) Pyelonephritis: PLAN: Plan #Acute right sided pyelonephritis * fever and tachycardia have resolved. * CT abdomen and pelvis showed multiple areas of focal nephronia vs possible i nfarcts in the right kidney * urology reviewed her and recommends medical management, no indication for surgical intervention * urinalysis showed evidence of UTI * on IV vancomycin and zosyn. * on IV toradol * Urine culture growing E. coli. Continue IV Zosyn. DC vancomycin. * #History of hysterectomy: stable # DVT prophylaxis: Lovenox Charges/Coding Visit Charges Inpatient E&M: 67059 Subs Hosp L2
[2024-02-01] MEDS: Polyethylene Glycol 3350 17 GM PACKET PO (16:10)
[2024-02-01] MEDS: Senna/Docusate Sodium 1 Tablet 2 TABLET PO (16:10)
[2024-02-01 18:25] VITALS: BP 120/77
[2024-02-01 21:30] VITALS: BP 105/74; PULSE 62; RESP 18; TEMP 36.6; O2SAT 100
[2024-02-01] MEDS: MELATONIN 3 MG TABLET PO (21:57)
[2024-02-01 22:00] VITALS: O2SAT 100
[2024-02-02 03:00] VITALS: BP 109/73; PULSE 58; RESP 18; TEMP 36.5; O2SAT 98
[2024-02-02] MEDS: Piperacil/Tazobactam 3.375 GM in 0.9% Normal Saline (50mL MB+) 50 ML IV (05:04)
[2024-02-02] MEDS: oxyCODONE 5 MG Tablet PO ×2 (05:04→10:53)
[2024-02-02] MEDS: proCHLORPERazine 10 MG/2 ML Vial 5 MG IV (05:09)
[2024-02-02 05:24] LABS: Absolute Lymphocyte Count 1.37 X10^3/uL (0.83-4.51); Absolute Neutrophil Count 3.5 X10^3/uL (2.0-7.7); Basophil# 0.03 X10^3/uL; Basophil% 0.5 % (0-1); Eosinophil# 0.13 X10^3/uL; Eosinophils% 2.3 % (0-5); Hematocrit 29.5 % (37-47); Hemoglobin 9.7 g/dL (12.0-15.0); Lymphocyte # 1.37 X10^3/ul (0.83-4.51); Mean Corp Hgb Conc 32.9 g/dL (32-36); Mean Corpuscular Hgb 29.8 pg (27.0-32.0); Mean Corpuscular Volume 90.8 fL (81-99); Mean Platelet Vol. 9.2 fl (6.2-12.0); Monocyte# 0.63 X10^3/uL; Monocyte% 11.1 % (0-10); NRBC Flagged by Analyzer 0 % (0-5); Neutrophil % 61.4 % (47-70); Platelet Count 243 K/mm3 (150-450); RBC Distribution Width CV 12.5 % (11.6-14.6); RBC Distribution Width SD 41.5 fl (35.1-43.9); Red Blood Count 3.25 M/mm3 (4.2-5.4); White Blood Count 5.7 K/mm3 (4.4-11.0)
[2024-02-02 05:45] LABS: Anion Gap 5 (5-15); BUN 7 mg/dL (7-18); BUN/Creat Ratio 11.6 RATIO (10-20); Calcium,Total 8.3 mg/dL (8.5-10.1); Chloride 103 mmol/L (98-107); EST Glomerular Filtration Rate 122 mL/min (>60); Est Glom Filt Rate - Afr Amer 147 mL/min (>60); Estimated Creatinine Clearance 96.69 ml/min; Glucose 86 mg/dL (74-106); Potassium 3.7 mmol/L (3.5-5.1); Sodium Level 137 mmol/L (136-145)
--- NOTE | 2024-02-02 10:41 | DCINST_ITS ---
Discharge Instructions Diet Discharge Diet: Low fat / Low cholesterol Activity Discharge Activity: Return to Normal Activity Weight Bearing Status: Full weight bearing Dressing / Incision Call your doctor if you observe: Fever of 101 or Higher, Swelling in the ankles, Increased palpitations (irregular heartbeat) and Uncontrolled pain Follow Up Care Test Results: Test results from this visit will be discussed in further detail at your follow- up appointment, if applicable. Discharge Plan Admission Admit Date/Time: 01/30/24 14:19 Primary Reason for Your Visit: acute riht pyelonephritis Attending Provider: Maame Bergman Primary Care Provider: Sailaja Samson Consulting Providers: Augustine Blair; Demetrius Ibanez Instructions Patient Instructions: Pyelonephritis Ch Dc, ED Pyelonephritis, Female (Adult) Discharge Orders/Prescriptions Prescriptions: New cefdinir 300 mg capsule 300 mg PO BID Qty: 20 0RF Continued albuterol sulfate 90 mcg/actuation Hfa Aerosol Inhaler 2 puff INHALATION Q6H PRN (Reason: ASTHMA) celecoxib 200 mg capsule 200 mg PO DAILY cyclobenzaprine 10 mg tablet 10 mg PO TID PRN (Reason: MUSCLE SPASMS ) duloxetine 30 mg capsule,delayed release(DR/EC) 30 mg PO DAILY benzonatate 200 mg capsule 200 mg PO TID PRN (Reason: COUGHING ) Patient Comments: PT STATES THIS IS A NEWER RX THAT THEY HAVENT TAKEN YET ( OF 01/30/24) Referrals / Follow Up: Sailaja Samson MD [Primary Care Provider] - Within 1 Week Disposition Disposition (needs filled in before D/C Order can be placed): Home, Self Care
--- NOTE | 2024-02-02 10:41 | DS.PCM_ITS ---
Providers Date of Admission: 01/30/24 Date of Discharge: 02/02/24 Primary Care Physician: Dr. Sailaja Samson MD Consultations 01/30/24 17:33 Consult: Urology Routine Consulting Provider: Augustine Blair Reason for Consult: acute pyelo/nephronia vs renal infarcts EMERGENT Consult: No MD Notified: Yes Date Notified: 01/30/24 Time Notified: 17:47 Method of Notification: Verbal Reason For Visit: ACUTE PYELONEPHRITIS Diagnosis Discharge Diagnosis (1) Pyelonephritis: Status: Acute Code(s): N12 - Tubulo-interstitial nephritis, not specified as acute or chronic (2) Back pain: Status: Acute Code(s): M54.9 - Dorsalgia, unspecified Plan #Acute right sided pyelonephritis * fever and tachycardia have resolved. * CT abdomen and pelvis showed multiple areas of focal nephronia vs possible infarcts in the right kidney * urology reviewed her and recommends medical management, no indication for surgical intervention * urinalysis showed evidence of UTI * on IV vancomycin and zosyn. * on IV toradol * Urine culture growing E. coli. Continue IV Zosyn. DC vancomycin. * #History of hysterectomy: stable # DVT prophylaxis: Lovenox Medications at Discharge Home Medications albuterol sulfate 90 mcg/actuation aerosol inhaler 2 puff inhalation Q6H PRN ASTHMA 03/21/22 benzonatate 200 mg capsule 200 mg PO TID PRN COUGHING 01/30/24 celecoxib 200 mg capsule 200 mg PO DAILY ANTI INFLAMMATORY 01/30/24 cyclobenzaprine 10 mg tablet 10 mg PO TID PRN MUSCLE SPASMS 01/30/24 duloxetine 30 mg capsule,delayed release 30 mg PO DAILY DEPRESSION 01/30/24 cefdinir 300 mg capsule 300 mg PO BID #20 caps 02/02/24 oxycodone 5 mg tablet 5 mg PO Q4H PRN PRN Pain Score 6-10 3 days #18 tabs 02/02/24 Hospital Course Operations None Procedures None Summary of Care Provided Minutes Spent on Discharge: 45 Hospital Course: Patient is a 33-year-old female with an extensive past medical history as outlined was admitted through the ED on 01/30/2024 with a complaint of fever and chills and bodyaches as well as right-sided flank pain with his symptoms having started a few days prior to admission. He had a history of kidney stones and had had a kidney infection about a year prior to admission. Review of systems otherwise negative. Patient was febrile on admission and hypotensive though this resolved with administration of IV fluids. Labs done showed elevated WBC of 15.3 and urinalysis showed 2+ bacteria. Hip pain did improve from when she came in. Her fever resolved and white cell count also trended down. CT of the abdomen and pelvis showed multiple peripheral base hypodensities involving the right kidney as described with multiple areas of focal lobar nephronia versus possible infarcts. She was admitted and managed for pyelonephritis with cristal rns for possible infarcts of the kidney. Nephrology was consulted and felt this was likely due to the kidney infection and recommended medical management. She was placed on IV Zosyn. Blood and urine cultures were obtained. Blood cultures were negative and urine cultures grew E. coli. Patient was therefore discharged home on 02/02/2024 on p.o. cefdinir 300 mg twice daily for 10 days. She is to follow-up with her primary care doctor within 1 to 2 weeks. She was also given a prescription for p.o. oxycodone 5 mg every 4 hours as needed for total of 18 tablets for 3 days. OARRS score was checked and no red flags were seen. Patient seen and examined prior to discharge. She had no active complaints and had an uneventful night. Pain had improved significantly. Review of systems otherwise negative. Labs and vitals reviewed. Medications reviewed and reconciled. Physical Exam Const alert, oriented x3, no apparent distress and well nourished General Appearance: cooperative and comfortable HEENT normocephalic, head/scalp atraumatic, hearing grossly normal bilaterally, nasal mucous membranes and turbinates normal, moist oral mucous membranes and oropharynx normal Mouth: oral and palatal mucosa normal Eyes PERRL, EOMs intact bilaterally and conjunctivae normal Neck full ROM, no lymphadenopathy, supple and no JVD Lymph Lymphatic: no lymphadenopathy noted and no lymphedema noted Chest inspection of chest normal Resp normal respiratory effort, normal air movement, no use of accessory muscles and clear to auscultation bilaterally Cardio regular rate, regular rhythm, S1 normal heart sound, S2 normal heart sound, no murmurs and peripheral pulses 2+ throughout GI normal to inspection, nondistended, normoactive bowel sounds, soft to palpation, non-tender and non-distended GI Narrative: right sided flank pain has improved significantly Bladder / Kidney Exam: bladder normal to palpation and CVA tenderness right Back/Spine normal ROM Extremity normal to inspection, full ROM, normal capillary refill, no clubbing, cyanosis or edema, no calf tenderness and no pedal edema General Extremity: no tenderness to palpation of joints or extremities Skin no rashes or lesions noted General Skin Exam: no breakdown Neuro CN's II-XII intact bilaterally, moves all extremities, no focal motor deficits, no sensory deficits noted and deep tendon reflexes 2+ bilaterally Speech: speech normal Motor Exam: strength 5/5 throughout Psych mental status grossly normal, thought process normal and cooperative Appearance: appropriate Weight / BMI Weight Weight: 100 lb 4.965 oz Body Mass Index (BMI) 17.7 ABG / Lab / Microbiology Data 02/02/24 04:58 02/02/24 04:58 Laboratory: Laboratory Results - last 24 hr 02/02/24 04:58: WBC 5.7, RBC 3.25 L, Hgb 9.7 L, Hct 29.5 L, MCV 90.8, MCH 29.8, MCHC 32.9, RDW Std Deviation 41.5, RDW Coeff of Tru 12.5, Plt Count 243, MPV 9.2, Immature Gran % (Auto) 0.700, Neut % (Auto) 61.4, Lymph % (Auto) 24.0, [place] % (Auto) 11.1 H, Eos % (Auto) 2.3, Baso % (Auto) 0.5, Absolute Neuts (auto) 3.5, Absolute Lymphs (auto) 1.37, Nucleated RBC % 0, Sodium 137, Potassium 3.7, Chloride 103, Carbon Dioxide 29.0, Anion Gap 5, BUN 7, Creatinine 0.60, Estim Creat Clear Calc 96.69, Est GFR (MDRD) Af Amer 147, Est GFR (MDRD) Non-Af 122, BUN/Creatinine Ratio 11.6, Glucose 86, Calcium 8.3 L Microbiology: Microbiology 01/30/24 12:42 Blood Culture (Wb) - Anticubital Left Blood Culture - Preliminary No growth in 48 hours. 01/30/24 12:41 Blood Culture (Wb) - Anticubital Right Blood Culture - Preliminary No growth in 48 hours. 01/30/24 11:12 Urine, Catheterized Urine Culture - Final Presumptive E. coli 01/30/24 11:12 Mucosa - Nose SARS-CoV-2, Influenza & RSV (PCR) - Final D/C Instructions Discharge Diet: Low fat / Low cholesterol Discharge Activity: Return to Normal Activity Weight Bearing Status: Full weight bearing Call your doctor if you observe: Fever of 101 or Higher, Swelling in the ankles, Increased palpitations (irregular heartbeat) and Uncontrolled pain Meaningful Use Info Meaningful Use Diagnoses (Choose all that apply): None applicable Discharge Plan Admission Admit Date/Time: 01/30/24 14:19 Primary Reason for Your Visit: acute riht pyelonephritis Attending Provider: Maame Bergman Primary Care Provider: Sailaja Samson Consulting Providers: Augustine Blair; Demetrius Ibanez Instructions Patient Instructions: Pyelonephritis Ch Dc, ED Pyelonephritis, Female (Adult) Discharge Orders/Prescriptions Prescriptions: New cefdinir 300 mg capsule 300 mg PO BID Qty: 20 0RF oxycodone 5 mg Tablet 5 mg PO Q4H PRN PRN (Reason: Pain Score 6-10) 3 Days Qty: 18 0RF Continued albuterol sulfate 90 mcg/actuation Hfa Aerosol Inhaler 2 puff INHALATION Q6H PRN (Reason: ASTHMA) celecoxib 200 mg capsule 200 mg PO DAILY cyclobenzaprine 10 mg tablet 10 mg PO TID PRN (Reason: MUSCLE SPASMS ) duloxetine 30 mg capsule,delayed release(DR/EC) 30 mg PO DAILY benzonatate 200 mg capsule 200 mg PO TID PRN (Reason: COUGHING ) Patient Comments: PT STATES THIS IS A NEWER RX THAT THEY HAVENT TAKEN YET ( OF 01/30/24) Referrals / Follow Up: Sailaja Samson MD [Primary Care Provider] - Within 1 Week Disposition Disposition (needs filled in before D/C Order can be placed): Home, Self Care Charges/Coding Visit Charges Inpatient E&M: 56580 Disch Hosp >30min
[2024-02-02] MEDS: DULoxetine Hcl 30 MG Capsule PO (10:53)
[2024-02-02] MEDS: Acetaminophen 325 MG Tablet 650 MG PO (10:53)
[2024-02-02 10:56] VITALS: BP 109/80; PULSE 54; RESP 16; TEMP 36.5; O2SAT 95
== END 2024-02-02 12:45 | disposition home or self-care (01) | DRG 463 ==
LOC: ED 11:03 → PCU 16:53
PROVIDERS: Admitting Provider Hospitalist; Emergency Provider Emergency Medicine; PCP Internal Medicine; Visit Provider Student in an Organized Health Care Education/Training Program
DX: N10 Acute pyelonephritis (principal); B96.20 Unspecified Escherichia coli [E. coli] as the cause of diseases classified elsewhere; I95.9 Hypotension, unspecified; F32.A Depression, unspecified; D64.9 Anemia, unspecified; F17.290 Nicotine dependence, other tobacco product, uncomplicated; M54.9 Dorsalgia, unspecified; M19.90 Unspecified osteoarthritis, unspecified site; F41.9 Anxiety disorder, unspecified; R79.1 Abnormal coagulation profile; Z90.710 Acquired absence of both cervix and uterus; Z79.899 Other long term (current) drug therapy; Z90.49 Acquired absence of other specified parts of digestive tract
CPT/HCPCS: 36415; 71045; 74177; 80048; 80053; 80202; 81001; 81025; 82607; 82728; 82746; 83540; 83550; 83605; 84443; 85025; 85027; 85610; 85730; 87040; 87086; 87088; 87186; 87631; 97802; 99284; 99406; J7030; J7040; J7050; J7120; Q9967; A4216; J2405

== ENCOUNTER 2024-04-21 07:54 | Emergency (ER) | payer MEDICAID, SELFPAY ==
[2024-04-21 07:55] VITALS: BP 117/79; PULSE 78; RESP 16; TEMP 36.4; O2SAT 99
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
--- NOTE | 2024-04-21 08:33 | CT_ITS ---
STUDY: CT CERVICAL SPINE WITHOUT CONTRAST REASON FOR EXAM: Female, 33 years old. Neck pain RADIATION DOSAGE (If Supplied By Facility): CTDIvol = ( 11.87 ) mGy, DLP = ( 249.80 ) mGycm TECHNIQUE: High resolution transaxial imaging was performed without contrast material. Sagittal and coronal images were reconstructed. Individualized dose optimization techniques were used for this CT. COMPARISON: None FINDINGS: Normal craniovertebral junction. Normal anterior atlantoaxial articulation. Normal odontoid process. There is straightening of the normal cervical lordosis. Normal vertebral bodies and posterior osseous elements. C2-3: Normal endplates. Normal disc height and morphology. Normal central canal and intervertebral neuroforamina. C3-4: Normal endplates. Normal disc height and morphology. Normal central canal and intervertebral neuroforamina. C4-5: Normal endplates. Normal disc height and morphology. Normal central canal and intervertebral neuroforamina. C5-6: Normal endplates. Normal disc height and morphology. Normal central canal and intervertebral neuroforamina. C6-7: Normal endplates. Normal disc height and morphology. Normal central canal and intervertebral neuroforamina. C7-T1: Normal endplates. Normal disc height and morphology. Normal central canal and intervertebral neuroforamina. Normal visualized soft tissue structures. CT/Spine Cervical without Contras IMPRESSION: There is straightening of the normal cervical lordosis. Electronically Signed: Yao Corey MD at 9:17 EDT ,
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
[2024-04-21] MEDS: Acetaminophen 325 MG Tablet 650 MG PO (08:45)
[2024-04-21] MEDS: Ondansetron ODT 4 MG Tablet PO (08:45)
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
[2024-04-21] MEDS: Ketorolac 15 MG/ML Vial IM (08:49)
[2024-04-21 09:55] VITALS: BP 110/62; PULSE 75
== END 2024-04-21 10:13 | disposition home or self-care (01) ==
PROVIDERS: Emergency Provider Emergency Medicine; PCP Internal Medicine; Visit Provider Emergency Medicine
DX: S90.02XA Contusion of left ankle, initial encounter (principal); F32.A Depression, unspecified; Z79.899 Other long term (current) drug therapy; Z90.49 Acquired absence of other specified parts of digestive tract; Z90.710 Acquired absence of both cervix and uterus; F17.290 Nicotine dependence, other tobacco product, uncomplicated; S60.211A Contusion of right wrist, initial encounter; V86.55XA Driver of 3- or 4- wheeled all-terrain vehicle (ATV) injured in nontraffic accident, initial encounter
CPT/HCPCS: 70450; 72125; 73110; 73610; 96372; 99282

== ENCOUNTER 2024-05-05 17:53 | Emergency (ER) | payer MEDICAID, SELFPAY ==
[2024-05-05 17:53] VITALS: BP 127/82; PULSE 90; RESP 16; TEMP 36.6; O2SAT 99
[2024-05-05 18:32] VITALS: BMI 17.4
[2024-05-05] MEDS: HYDROcodone Bitartrate/Apap 5/325 Tablet PO (18:32)
--- NOTE | 2024-05-05 18:34 | EX.ED.DYSGE1 ---
HPI History of Present Illness Chief Complaint: Med Refill Detail of Chief Complaint: Pain due to calcaneal fracture left foot Informant: patient Onset/Context/Timing Onset: Weeks Context: Sudden Onset Timing: Continuous Quality: Pain since she excellently put weight on her foot. Location: Left heel Current Severity: Mild Maximum Severity: Severe Worsened by: Palpation of the right Relieved by: Nothing Associated Symptoms Associated Symptoms: None Narrative Narrative: Patient presents because of pain after actually putting weight on her left foot/heel. She is walking with crutches. She lost her balance. She was seen on April 21. She had an x-ray of the ankle that was interpreted by the ER physician and radiologist as negative. There is a small irregularity noted the plantar surface of the calcaneus. Unable to access Clinisync because it is temporarily down. Patient reports she has a fracture through the body of the calcaneus. There is no depression of Boehler's angle. Patient is requesting pain medicine until she is able to be seen by her orthopedist tomorrow. Prior similar symptoms: Yes Recent Illness/Hospitalization: Yes [facility] Medical History Pyelonephritis Smoker Wears contact lenses Wears glasses Depression Anxiety History of steroid therapy Arthritis Kidney stones Back pain Migraine headache Injury of head and neck Gastric reflux Shortness of breath on exertion History of edema History of irregular heartbeat Renal calculus Substance abuse Gastritis Asthma Home Medications ?Medication ?Instructions ?Recorded ?Last Taken ?Type albuterol sulfate 90 mcg/actuation 2 puff inhalation Q6H PRN ASTHMA 03/21/22 Unknown History aerosol inhaler benzonatate 200 mg capsule 200 mg PO TID PRN COUGHING 01/30/24 Unknown History celecoxib 200 mg capsule 200 mg PO DAILY ANTI INFLAMMATORY 01/30/24 Unknown History cyclobenzaprine 10 mg tablet 10 mg PO TID PRN MUSCLE SPASMS 01/30/24 Unknown History duloxetine 30 mg capsule,delayed 30 mg PO DAILY DEPRESSION 01/30/24 Unknown History release cefdinir 300 mg capsule 300 mg PO BID #20 caps 02/02/24 Unknown Rx oxycodone 5 mg tablet 5 mg PO Q4H PRN PRN Pain Score 02/02/24 Unknown Rx 6-10 3 days #18 tabs hydrocodone-acetaminophen 5-325mg 1 tab PO Q4H PRN PRN Pain 2 days 05/05/24 Unknown Rx 5mg-325mg #10 TABLETS Allergy/AdvReac Type Severity Reaction Status Date / Time No Known Allergies Allergy Verified 05/05/24 17:56 Family History Mother Asthma Arthritis Lung cancer Osteoporosis Thyroid disorder Surgical History Hx of colonoscopy History of esophagogastroduodenoscopy (EGD) Hx of dilation and curettage Hx of thumb surgery Hx of laparoscopy History of tonsillectomy and adenoidectomy History of appendectomy History of hysterectomy Social History Smoking Status: Current every day smoker tobacco type: e-cigarettes alcohol intake: current substance use type: does not use additional social history: no aspirin use no ibuprofen use ROS ROS ED Integumentary Reports other Details: Left heel pain and discoloration of the left foot Neurologic Neurologic: Denies paresthesias or weakness Hematologic/Lymphatic Hematologic/Lymphatic: Reports systems reviewed and no addt'l complaints, except as documented EXAM Physical Exam Const Vital Signs: 05/05/24 17:53 Temperature 97.8 F Temperature Source Temporal Pulse Rate 90 Respiratory Rate 16 Blood Pressure 127/82 H Blood Pressure Mean 97 Pulse Ox 99 Oxygen Delivery Method Room Air Positive well nourished and well developed General Appearance ED: well developed and NAD HEENT Reports moist mucous membranes HEENT Narrative: Head is atraumatic normocephalic. Eyes PERRL and EOMs intact bilaterally General Eye ED: Negative for pale conjunctiva or scleral icterus Resp normal respiratory effort Cardio regular rate and regular rhythm Extremity Extremity Narrative: Patient's left foot is ecchymotic with minimal swelling over the midportion. Patient has pain ovation of the calcaneus. DP pulses palpable. There is no swelling of the calf. Neuro oriented x3 and CN's II-XII intact bilaterally Sensorium / Orientation: alert Psych mental status grossly normal Skin Skin Narrative: Bruising of the left foot MDM MDM MDM Narrative Medical decision making narrative: X-ray of the ankle was reviewed. There is a disruption of the cortex of the calcaneus. Unable to access Clinisysd because it is temporary down to review CAT scan results obtained at [facility] clinic. Patient was given [place] in department and a 24-hour supply of [place]. She was discharged to home. Discharge Plan Triage Chief Complaint: Med Refill ED Provider: Chad Graham Dx/Rx/DC Orders Clinical Impression: Calcaneal fracture, Foot pain, left, Unable to ambulate Instructions: ED Fracture, Foot Prescriptions: New hydrocodone-acetaminophen 5-325 mg tablet 1 tab PO Q4H PRN PRN (Reason: Pain) 2 Days Qty: 10 0RF No Action albuterol sulfate 90 mcg/actuation Hfa Aerosol Inhaler 2 puff INHALATION Q6H PRN (Reason: ASTHMA) celecoxib 200 mg capsule 200 mg PO DAILY cyclobenzaprine 10 mg tablet 10 mg PO TID PRN (Reason: MUSCLE SPASMS ) duloxetine 30 mg capsule,delayed release(DR/EC) 30 mg PO DAILY benzonatate 200 mg capsule 200 mg PO TID PRN (Reason: COUGHING ) Patient Comments: PT STATES THIS IS A NEWER RX THAT THEY HAVENT TAKEN YET ( OF 01/30/24) cefdinir 300 mg capsule 300 mg PO BID Qty: 20 0RF oxycodone 5 mg Tablet 5 mg PO Q4H PRN PRN (Reason: Pain Score 6-10) 3 Days Qty: 18 0RF Primary Care Provider: Sailaja Samson Referrals: Sailaja Samson MD [Primary Care Provider] - Print Language: Mexican Disposition Disposition: Home, Self Care
== END 2024-05-05 18:53 | disposition home or self-care (01) ==
PROVIDERS: Emergency Provider Emergency Medicine; PCP Internal Medicine; Visit Provider Emergency Medicine
DX: S92.002A Unspecified fracture of left calcaneus, initial encounter for closed fracture (principal); M79.672 Pain in left foot; F32.A Depression, unspecified; Z79.899 Other long term (current) drug therapy; Z90.49 Acquired absence of other specified parts of digestive tract; Z90.710 Acquired absence of both cervix and uterus; F17.290 Nicotine dependence, other tobacco product, uncomplicated; X58.XXXA Exposure to other specified factors, initial encounter
CPT/HCPCS: 99282

== ENCOUNTER 2024-05-22 21:29 | Emergency (ER) | payer MEDICAID, SELFPAY ==
[2024-05-22 21:29] VITALS: BP 101/72; PULSE 130; RESP 19; TEMP 38.7; O2SAT 95; BMI 17.4
[2024-05-22 21:31] VITALS: BP 101/72; PULSE 130; RESP 19; TEMP 38.7; O2SAT 95
[2024-05-22 22:00] LABS: Absolute Lymphocyte Count 0.64 X10^3/uL (0.83-4.51); Absolute Neutrophil Count 8.1 X10^3/uL (2.0-7.7); Basophil# 0.02 X10^3/uL; Basophil% 0.2 % (0-1); Hematocrit 35.4 % (37-47); Lymphocyte # 0.64 X10^3/ul (0.83-4.51); Lymphocyte % 6.7 % (19-41); Mean Corp Hgb Conc 33.9 g/dL (32-36); Mean Corpuscular Hgb 30.5 pg (27.0-32.0); Mean Corpuscular Volume 89.8 fL (81-99); Mean Platelet Vol. 8.7 fl (6.2-12.0); Monocyte# 0.78 X10^3/uL; Monocyte% 8.1 % (0-10); NRBC Flagged by Analyzer 0 % (0-5); Neutrophil # 8.12 X10^3/uL (2.7-7.7); Neutrophil % 84.8 % (47-70); Platelet Count 219 K/mm3 (150-450); RBC Distribution Width CV 11.9 % (11.6-14.6); RBC Distribution Width SD 39.1 fl (35.1-43.9); Red Blood Count 3.94 M/mm3 (4.2-5.4); White Blood Count 9.6 K/mm3 (4.4-11.0)
[2024-05-22 22:22] LABS: Anion Gap 4 (5-15); BUN 17 mg/dL (7-18); BUN/Creat Ratio 21.4 RATIO (10-20); Calcium,Total 9.4 mg/dL (8.5-10.1); Chloride 100 mmol/L (98-107); EST Glomerular Filtration Rate 88 mL/min (>60); Est Glom Filt Rate - Afr Amer 107 mL/min (>60); Glucose 109 mg/dL (74-106); Potassium 3.9 mmol/L (3.5-5.1); Sodium Level 135 mmol/L (136-145)
[2024-05-22 22:33] VITALS: RESP 18; O2SAT 95
--- NOTE | 2024-05-22 22:57 | CT_ITS ---
EXAM: CT Abdomen And Pelvis W/O Contrast Injection HISTORY: right flank pain TECHNIQUE: Routine protocol CT abdomen and pelvis. IV Contrast: None.. Oral contrast: None. RADIATION DOSAGE (If Supplied By Facility): CTDIvol = ( 6.04 ) mGy, DLP = ( 283.89 ) mGycm Individualized dose optimization techniques were used for this CT. COMPARISON: CT abdomen and pelvis 01/30/2024. LIMITATIONS: None. FINDINGS: LOWER CHEST: Included lung bases are clear. LIVER: Grossly unremarkable. GALLBLADDER AND BILIARY TREE: Grossly unremarkable. PANCREAS: Grossly unremarkable. SPLEEN: Grossly unremarkable. ADRENAL GLANDS: Grossly unremarkable. KIDNEYS AND URETERS: Tiny calculus in the left kidney. No hydronephrosis. PERITONEUM: No free air. No free fluid. BOWEL: No bowel obstruction. Moderate amount of stool throughout the colon. APPENDIX: Not identified. Surgically absent. VESSELS: Abdominal aorta is normal caliber. REPRODUCTIVE ORGANS: Uterus not identified. URINARY BLADDER: Minimally distended. Air in the bladder presumed recent instrumentation. ABDOMINAL WALL: Unremarkable. BONES: No acute abnormalities. CT/Abdomen/Pelvis without Cont IMPRESSION: No acute findings. Left nephrolithiasis without hydronephrosis. Air in the bladder presumably recent instrumentation. In the absence of instrumentation, this can be seen with infection/cystitis. Electronically Signed: Kateryna Romero MD at 23:58 EDT ,
--- NOTE | 2024-05-22 22:58 | EDS_ITS ---
HPI History of Present Illness Chief Complaint: General Illness Narrative Narrative: 33-year-old female presenting with fevers, chills, nausea, vomiting. She started feeling ill yesterday. She denies cough or cold symptoms. She states that her back hurts similarly to when she had a kidney infection/kidney stone. She also has dysuria and urinary frequency. Patient has been able to use Tylenol and ibuprofen at home. PFSH PFSH Medical History Pyelonephritis Smoker Wears contact lenses Wears glasses Depression Anxiety History of steroid therapy Arthritis Kidney stones Back pain Migraine headache Injury of head and neck Gastric reflux Shortness of breath on exertion History of edema History of irregular heartbeat Renal calculus Substance abuse Gastritis Asthma Home Medications ?Medication ?Instructions ?Recorded ?Last Taken ?Type albuterol sulfate 90 mcg/actuation 2 puff inhalation Q6H PRN ASTHMA 03/21/22 Unknown History aerosol inhaler ondansetron 4 mg disintegrating 4 mg PO Q8H PRN PRN Nausea #14 tabs 05/23/24 Unknown Rx tablet sulfamethoxazole 800 1 tab PO BID #20 tabs 05/23/24 Unknown Rx mg-trimethoprim 160 mg tablet (Bactrim DS) Allergy/AdvReac Type Severity Reaction Status Date / Time No Known Allergies Allergy Verified 05/22/24 21:29 Family History Mother Asthma Arthritis Lung cancer Osteoporosis Thyroid disorder Surgical History Hx of colonoscopy History of esophagogastroduodenoscopy (EGD) Hx of dilation and curettage Hx of thumb surgery Hx of laparoscopy History of tonsillectomy and adenoidectomy History of appendectomy History of hysterectomy Social History Smoking Status: Current every day smoker tobacco type: e-cigarettes alcohol intake: current substance use type: does not use additional social history: no aspirin use no ibuprofen use ROS ROS ED Constitutional Constitutional ED: Reports chills and fever(s) Eyes Eyes: Denies blurry vision or change in vision ENT ENT ED: Denies rhinorrhea or sore throat Cardiovascular Cardiovascular: Denies chest pain or palpitations Respiratory/Chest Respiratory/Chest: Denies cough, dyspnea or dyspnea on exertion Gastrointestinal Gastrointestinal: Reports abdominal pain, nausea and vomiting Musculoskeletal Musculoskeletal: Reports back pain and myalgias Integumentary Denies abscess Neurologic Neurologic: Reports headache(s); Denies paresthesias or weakness Psychiatric Psychiatric: Denies anxiety or depression EXAM Physical Exam Const Vital Signs: 05/22/24 21:29 05/22/24 21:31 05/22/24 21:55 Temperature 101.6 F H 101.6 F H Temperature Source Temporal Temporal Pulse Rate 130 H 130 H Respiratory Rate 19 H 19 H Respiratory Effort Respiratory Pattern Blood Pressure 101/72 101/72 Blood Pressure Mean 81 81 Pulse Ox 95 95 Oxygen Delivery Method Room Air Room Air Room Air 05/22/24 22:33 05/22/24 22:54 05/22/24 23:25 Temperature 99.9 F H Temperature Source Oral Pulse Rate 102 H Respiratory Rate 18 18 Respiratory Effort Normal Respiratory Pattern Normal Blood Pressure 94/63 Blood Pressure Mean 73 Pulse Ox 95 95 Oxygen Delivery Method Room Air Room Air 05/23/24 00:04 Temperature Temperature Source Pulse Rate 107 H Respiratory Rate 18 Respiratory Effort Respiratory Pattern Blood Pressure 94/60 Blood Pressure Mean 71 Pulse Ox 99 Oxygen Delivery Method Room Air Positive well nourished and well developed General Appearance ED: well developed; Negative for pallor HEENT Reports moist mucous membranes Eyes PERRL and EOMs intact bilaterally Chest Wall inspection of chest normal Resp normal respiratory effort and clear to auscultation bilaterally Auscultation: Negative for rales, rhonchi or wheezes Cardio regular rhythm Rate: tachycardic GI GI Narrative: Right-sided abdominal pain with CVA tenderness on the right. Palpation: tender Neuro oriented x3 and CN's II-XII intact bilaterally Sensorium / Orientation: alert Motor Exam: strength 5/5 throughout Skin no rashes or lesions noted General Skin Exam: Negative for jaundice or pallor MDM MDM MDM Narrative Medical decision making narrative: Patient presenting with right-sided flank pain and urinary symptoms. Diff erential includes UTI, pyelonephritis, kidney stone, dehydration, anemia, electrolyte abnormalities. Patient with fever on arrival and was given Tylenol 1 g p.o. and Toradol 15 mg IV as well as 2 L of IV fluids. CBC was obtained to assess white blood cell count, hemoglobin, platelets. BMP to assess renal function electrolytes, glucose. Urinalysis to assess for UTI. CBC and BMP are within normal limits. Urinalysis consistent with UTI. CT of the abdomen pelvis was obtained to rule out kidney stone and this does not show any evidence of a obstructing stone on the right side where her pain is. There is a nonobstructing stone on the left side. On reevaluation at 12:25 AM the patient is resting comfortably in bed asleep. I woke her up and went over her instructions. She feels comfortable going home with Zofran and Bactrim. Return precautions were discussed. Impression: 1. Pyelonephritis 2. Febrile illness Lab Data Labs: Laboratory Results - last 24 hr 05/22/24 05/22/24 21:50 23:01 WBC 9.6 RBC 3.94 L Hgb 12.0 Hct 35.4 L MCV 89.8 MCH 30.5 MCHC 33.9 RDW Std Deviation 39.1 RDW Coeff of Tru 11.9 Plt Count 219 MPV 8.7 Immature Gran % (Auto) 0.200 Neut % (Auto) 84.8 H Lymph % (Auto) 6.7 L [place] % (Auto) 8.1 Eos % (Auto) 0.0 Baso % (Auto) 0.2 Absolute Neuts (auto) 8.1 H Absolute Lymphs (auto) 0.64 L Nucleated RBC % 0 Sodium 135 L Potassium 3.9 Chloride 100 Carbon Dioxide 31.0 Anion Gap 4 L BUN 17 Creatinine 0.80 Estim Creat Clear Calc 71.40 Est GFR (MDRD) Af Amer 107 Est GFR (MDRD) Non-Af 88 BUN/Creatinine Ratio 21.4 H Glucose 109 H Calcium 9.4 Urine Color Yellow Urine Clarity Clear Urine pH 7.0 Ur Specific [place] 1.005 Urine Protein 30 H Urine Glucose (UA) Normal Urine Ketones 5 H Urine Occult Blood 50 H Urine Nitrite Positive H Urine Bilirubin Negative Urine Urobilinogen Normal Ur Leukocyte Esterase 25 H Urine RBC 0-5 SEEN Urine WBC 5-10 SEEN Ur Squamous Epith Cells 0 SEEN Urine Bacteria 3+ Urine Mucus 0 SEEN Urine Test Negative Radiography Diagnostic Testing: Clinical Impression(s) from Imaging Studies Abdomen/Pelvis CT 05/22/24 22:57 IMPRESSION: No acute findings. Left nephrolithiasis without hydronephrosis. Air in the bladder presumably recent instrumentation. In the absence of instrumentation, this can be seen with infection/cystitis. Electronically Signed: Kateryna Romero MD at 23:58 EDT , Discharge Plan Triage Chief Complaint: General Illness ED Provider: Eliezer Banks Dx/Rx/DC Orders Instructions: ED Pyelonephritis, Female (Adult) Prescriptions: New ondansetron 4 mg tablet,disintegrating 4 mg PO Q8H PRN PRN (Reason: Nausea) Qty: 14 0RF sulfamethoxazole-trimethoprim [Bactrim DS] 800-160 mg tablet 1 tab PO BID Qty: 20 0RF No Action albuterol sulfate 90 mcg/actuation Hfa Aerosol Inhaler 2 puff INHALATION Q6H PRN (Reason: ASTHMA) Stand Alone Forms: ED Work / School Excuse Primary Care Provider: Sailaja Samson Referrals: Sailaja Samson MD [Primary Care Provider] - Print Language: Mosotho Disposition Disposition: Home, Self Care
[2024-05-22] MEDS: Ketorolac 15 MG/ML Vial IV (23:19)
[2024-05-22] MEDS: Acetaminophen 500 MG Tablet 1000 MG PO (23:19)
[2024-05-22] MEDS: 0.9% Normal Saline (1000mL) 1,000 ML 999 ML IV (23:19)
[2024-05-22] MEDS: Ondansetron 4 MG/2 ML Vial IV (23:19)
[2024-05-22 23:25] VITALS: BP 94/63; PULSE 102; RESP 18; TEMP 37.7; O2SAT 95
[2024-05-22 23:30] LABS: Mucous, Urine 0 SEEN /hpf (<or=2+); Squamous Epithelial Cells - UA 0 SEEN /hpf (5-10)
[2024-05-22 23:31] LABS: Color, Urine Yellow (Yellow); Glucose, Dipstick Normal (Normal); Ketone-Dipstick 5 mg/dl (Negative); Leukocyte Esterase-Dipstick 25 /ul (Negative); Nitrite-Dipstick Positive (Negative); Occult Blood-Urine 50 /ul (Negative); Protein-Dipstick 30 mg/dl (Negative); Specific Gravity, Urine 1.005 (1.002-1.030); Urine Bilirubin Dipstick Negative (Negative); Urine Clarity Clear (Clear); Urine Urobilinogen Normal (Normal)
[2024-05-22 23:33] LABS: Internal QC Validated? YES +Cl - CLEAR BKGD; Pregnancy, Urine Negative Negative
[2024-05-22 23:38] LABS: White Blood Cells 5-10 SEEN /hpf (0-5)
[2024-05-22 23:39] LABS: Bacteria 3+ /hpf (None Seen); Red Blood Cells-Urine 0-5 SEEN /hpf (0-5)
[2024-05-23] MEDS: Ceftriaxone 1 GM/50 ML BAG IV
[2024-05-23] MEDS: 0.9% Normal Saline (1000mL) 1,000 ML 999 ML IV (00:03)
[2024-05-23 00:04] VITALS: BP 94/60; PULSE 107; RESP 18; O2SAT 99
[2024-05-23 01:07] VITALS: BP 100/56; PULSE 97; RESP 18; TEMP 36.9; O2SAT 100
== END 2024-05-23 01:08 | disposition home or self-care (01) ==
PROVIDERS: Emergency Provider Student in an Organized Health Care Education/Training Program; PCP Internal Medicine; Visit Provider Student in an Organized Health Care Education/Training Program
DX: N12 Tubulo-interstitial nephritis, not specified as acute or chronic (principal); R11.2 Nausea with vomiting, unspecified; R50.9 Fever, unspecified; Z90.49 Acquired absence of other specified parts of digestive tract; Z90.710 Acquired absence of both cervix and uterus; F17.290 Nicotine dependence, other tobacco product, uncomplicated
CPT/HCPCS: 74176; 80048; 81001; 81025; 85025; 87086; 87088; 87186; 87631; 94760; 96361; 96365; 96375; 99284; J7030; A4216; J2405

== ENCOUNTER 2024-07-02 19:27 | Emergency (ER) | payer MEDICAID, SELFPAY ==
[2024-07-02 19:29] VITALS: BP 123/82; PULSE 120; RESP 18; TEMP 36.6; O2SAT 99; BMI 16.7
--- NOTE | 2024-07-02 21:26 | ED.RN ---
PT'S NAME WAS CALLED AND PT WAS NOT HERE.
== END 2024-07-02 21:20 | disposition left against medical advice (07) ==
LOC: ED 21:30
PROVIDERS: PCP Internal Medicine
DX: Z00.00 Encounter for general adult medical examination without abnormal findings (principal)

== ENCOUNTER 2024-07-05 10:19 | Emergency (ER) | payer MEDICAID, SELFPAY ==
[2024-07-05 10:21] VITALS: BP 108/84; PULSE 96; RESP 16; TEMP 36.1; O2SAT 100; BMI 16.8
--- NOTE | 2024-07-05 10:39 | EDS_ITS ---
HPI History of Present Illness HPI Narrative: Patient presents with laceration to her left thumb that occurred 3 days ago. Patient states that she was cutting something when she excellently cut the tip of her finger off. Patient states she applied superglue to the finger. Patient states that the pain has gotten progressively worse. Patient is concerned over possible MRSA infection. 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 Patient admits to some tingling into the tip of her finger. Patient describes her pain as throbbing. Patient states it is worse when it is in a dependent position. Patient denies any fevers or chills. Patient denies any discharge or drainage. Patient is right-hand dominant. Chief Complaint: Laceration Informant: patient Occured/Mechanism Comment: Cut with a knife Onset/Context/Timing Onset: Days (3) Context: Sudden Onset Timing: Continuous Quality of Pain: Throbbing Location: Left thumb Worsened by: Dependent position Relieved by: Nothing Associated Symptoms Associated Symptoms: Positive for Parasthesia; Negative for Weakness or Loss of Funtion Narrative Tetanus Immunization: Unknown PFSH PFS Medical History Pyelonephritis Smoker Wears contact lenses Wears glasses Depression Anxiety History of steroid therapy Arthritis Kidney stones Back pain Migraine headache Injury of head and neck Gastric reflux Shortness of breath on exertion History of edema History of irregular heartbeat Renal calculus Substance abuse Gastritis Asthma Home Medications ?Medication ?Instructions ?Recorded ?Last Taken ?Type albuterol sulfate 90 mcg/actuation 2 puff inhalation Q6H PRN ASTHMA 03/21/22 Unknown History aerosol inhaler ondansetron 4 mg disintegrating 4 mg PO Q8H PRN PRN Nausea #14 tabs 05/23/24 Unknown Rx tablet sulfamethoxazole 800 1 tab PO BID #20 tabs 05/23/24 Unknown Rx mg-trimethoprim 160 mg tablet (Bactrim DS) clindamycin HCl 300 mg capsule 300 mg PO Q6H #40 CAPSULES 07/05/24 Unknown Rx (Cleocin HCl) naproxen 500 mg tablet 500 mg PO BID PRN #20 tabs 07/05/24 Unknown Rx Allergy/AdvReac Type Severity Reaction Status Date / Time No Known Allergies Allergy Verified 07/05/24 10:23 Family History Mother Asthma Arthritis Lung cancer Osteoporosis Thyroid disorder Surgical History Hx of colonoscopy History of esophagogastroduodenoscopy (EGD) Hx of dilation and curettage Hx of thumb surgery Hx of laparoscopy History of tonsillectomy and adenoidectomy History of appendectomy History of hysterectomy Social History Smoking Status: Current every day smoker tobacco type: e-cigarettes alcohol intake: current substance use type: does not use additional social history: no aspirin use no ibuprofen use ROS ROS ED Constitutional Constitutional ED: Denies chills or fever(s) Eyes Eyes: Denies blurry vision or change in vision ENT ENT ED: Denies rhinorrhea or sore throat Cardiovascular Cardiovascular: Denies chest pain or palpitations Respiratory/Chest Respiratory/Chest: Denies cough or dyspnea Gastrointestinal Gastrointestinal: Reports nausea; Denies vomiting Genitourinary Genitourinary ED: Denies dysuria or hematuria Musculoskeletal Musculoskeletal: Denies back pain or neck pain Integumentary Denies abscess or rash Neurologic Neurologic: Denies headache(s) or weakness Allergic/Immunologic Allergic/Immunologic ED: Denies mouth swelling or urticaria EXAM Physical Exam Const Vital Signs: 07/05/24 10:21 Temperature 97.0 F L Temperature Source Temporal Pulse Rate 96 Respiratory Rate 16 Blood Pressure 108/84 H Blood Pressure Mean 92 Pulse Ox 100 Oxygen Delivery Method Room Air Positive well nourished and well developed General Appearance ED: well developed and NAD HEENT Reports moist mucous membranes Neck full ROM and supple Neuro oriented x3, CN's II-XII intact bilaterally, moves all extremities, no focal motor deficits and no sensory deficits noted Sensorium / Orientation: alert Motor Exam: strength 5/5 throughout Psych mental status grossly normal Skin Skin Narrative: There is a healing laceration of the tip of the left thumb. There is some mild erythema. There is tenderness to palpation over the distal phalanx of the left thumb. Capillary refill was less than 2 seconds in all digits. Sensation was intact to light touch in all digits. Strength is 5/5 in flexion extension of the IP and MP joints of the left thumb. Radial pulses are equal bilaterally. MDM MDM MDM Narrative Medical decision making narrative: Differential diagnosis includes cellulitis and osteomyelitis. X-rays of the left thumb will be obtained to assess for osteomyelitis. Radiography Diagnostic Testing: X-rays of the left thumb were obtained. There are 3 views. On my independent interpretation, there is no acute process noted. There is no evidence of osteomyelitis. There is no acute fracture. Radiologist also interpreted the x- rays and agrees. Treatment and Re-Evaluation Narrative: Nicotine cessation was discussed. Patient was given a tetanus booster. Patient was given a dose of clindamycin here. Patient was given a dose of Naprosyn here. Patient was given prescriptions for myosin and Naprosyn. Patient was instructed to follow-up with her primary care physician in 5 to 7 days. Patient was instructed to return if worse in any way. Patient understood and was agreeable with the plan. All questions were answered. Discharge Plan Triage Chief Complaint: Laceration Other Complaint: Upper Extremity Injury ED Provider: Lukas Medina Dx/Rx/DC Orders Clinical Impression: Laceration of left thumb, Cellulitis of left thumb, Nicotine vapor product user Instructions: ED Laceration Infect Not Stitched Prescriptions: New clindamycin HCl [Cleocin HCl] 300 mg capsule 300 mg PO Q6H Qty: 40 0RF naproxen 500 mg tablet 500 mg PO BID PRN Qty: 20 0RF No Action albuterol sulfate 90 mcg/actuation Hfa Aerosol Inhaler 2 puff INHALATION Q6H PRN (Reason: ASTHMA) ondansetron 4 mg tablet,disintegrating 4 mg PO Q8H PRN PRN (Reason: Nausea) Qty: 14 0RF sulfamethoxazole-trimethoprim [Bactrim DS] 800-160 mg tablet 1 tab PO BID Qty: 20 0RF Primary Care Provider: Sailaja Samson Referrals: Sailaja Samson MD [Primary Care Provider] - 5-7 Days Print Language: Grenadian Disposition Disposition: Home, Self Care
[2024-07-05] MEDS: Diphth,Pertuss(Acell),Tet Vac 0.5 ML Vial IM (10:56)
[2024-07-05] MEDS: Clindamycin HCl 150 MG Capsule 300 MG PO (10:56)
--- NOTE | 2024-07-05 10:57 | RAD_ITS ---
INDICATION: Injury/Pain EXAMINATION/TECHNIQUE: X-RAY - LEFT HAND XR Fingers Min 2 Views 3 VIEWS COMPARISON: Prior study dated: 06/18/2016 FINDINGS: SOFT TISSUES: No soft tissue swelling or gas. No radiopaque foreign body. BONES/JOINTS: No acute fracture or subluxation.. Old fracture of the tip of the distal phalanx of the thumb unchanged. Preservation of the joint space.. No sclerotic or destructive changes observed. RAD/Finger(s) Min 2 Views IMPRESSION: No evidence of acute fracture or dislocation. Electronically Signed: Gaudencio Busch MD at 11:30 EDT ,
[2024-07-05] MEDS: Naproxen 500 MG Tablet PO (11:19)
[2024-07-05 12:02] VITALS: BP 94/76; PULSE 64; RESP 16; TEMP 35.5; O2SAT 99
--- NOTE | 2024-07-05 12:04 | ED.RN ---
Patient refused dressing treatment. Pt advised that she could drive through the drive thru to get her medications. Patient verbalized understanding and ambulated without difficulty out of the department.
== END 2024-07-05 12:05 | disposition home or self-care (01) ==
PROVIDERS: Emergency Provider Emergency Medicine; PCP Internal Medicine; Visit Provider Emergency Medicine
DX: S61.012A Laceration without foreign body of left thumb without damage to nail, initial encounter (principal); L03.012 Cellulitis of left finger; W26.8XXA Contact with other sharp object(s), not elsewhere classified, initial encounter; Z90.49 Acquired absence of other specified parts of digestive tract; Z90.710 Acquired absence of both cervix and uterus; F17.290 Nicotine dependence, other tobacco product, uncomplicated; Z23 Encounter for immunization
CPT/HCPCS: 73140; 90471; 90715; 99284

== ENCOUNTER 2024-09-28 17:42 | Emergency (ER) | payer MEDICAID, SELFPAY ==
[2024-09-28 17:44] VITALS: BP 135/88; PULSE 98; RESP 18; TEMP 35.8; O2SAT 98; BMI 18.2
[2024-09-28] MEDS: Lidocaine 1% (20 ml mdv) 20 ML Vial 10 ML INFILT (17:59)
--- NOTE | 2024-09-28 18:00 | RAD_ITS ---
EXAM: XR LEFT FINGERS, 2 OR MORE VIEWS CLINICAL INDICATION: middle finger injury TECHNIQUE: Frontal, lateral and oblique views of the fingers of the left hand. COMPARISON: No relevant prior studies available. FINDINGS: BONES/JOINTS: Unremarkable. No acute fracture. No subluxation. Normal alignment. Preservation of the joint space. No sclerotic or destructive changes observed. SOFT TISSUES: In the volar aspect of the digit, there is soft tissue swelling and air consistent for recent soft tissue injury. No radiopaque foreign body. RAD/Finger(s) Min 2 Views IMPRESSION: In the volar aspect of the digit, there is soft tissue swelling and air consistent for recent soft tissue injury. Electronically Signed: Winston Solorzano MD at 18:51 EST ,
--- NOTE | 2024-09-28 18:07 | EX.ED.GENINJ ---
HPI History of Present Illness Chief Complaint: Laceration Narrative Narrative: Patient is a 34-year-old female with a past medical history of anxiety, depression, GERD who presents to the emergency department with a chief complaint of left middle finger laceration. Patient states that she was getting an extension cord that had a zip tie around this and she went to cut this off with a pocket knife and she states that she slipped and cut her middle finger. She states that it went through the tip of her middle finger and had immediate pain and bleeding therefore she came here for further evaluation management. Patient states that very similar thing happened to her not long ago and she had her tetanus shot updated at that point time. Patient states her pain is a 9 out of 10 currently. [facility] Medical History Pyelonephritis Smoker Wears contact lenses Wears glasses Depression Anxiety History of steroid therapy Arthritis Kidney stones Back pain Migraine headache Injury of head and neck Gastric reflux Shortness of breath on exertion History of edema History of irregular heartbeat Renal calculus Substance abuse Gastritis Asthma Home Medications ?Medication ?Instructions ?Recorded ?Last Taken ?Type albuterol sulfate 90 mcg/actuation 2 puff inhalation Q6H PRN ASTHMA 03/21/22 Unknown History aerosol inhaler ondansetron 4 mg disintegrating 4 mg PO Q6H PRN nausea and 09/28/24 Unknown Rx tablet vomiting #20 tabs oxycodone-acetaminophen 5 mg-325 1 tab PO Q6H PRN pain 2 days #8 09/28/24 Unknown Rx mg tablet (Percocet) tabs Allergy/AdvReac Type Severity Reaction Status Date / Time No Known Allergies Allergy Verified 09/28/24 17:43 Family History Mother Asthma Arthritis Lung cancer Osteoporosis Thyroid disorder Surgical History Hx of colonoscopy History of esophagogastroduodenoscopy (EGD) Hx of dilation and curettage Hx of thumb surgery Hx of laparoscopy History of tonsillectomy and adenoidectomy History of appendectomy History of hysterectomy Social History Smoking Status: Current every day smoker tobacco type: e-cigarettes alcohol intake: current substance use type: does not use additional social history: no aspirin use no ibuprofen use ROS ROS ED ROS Narrative Constitutional: Denies any fevers or chills Neurological: Complains of burning sensation to her left distal middle finger denies any other numbness, tingling Skin: Complains of a cut to her left middle finger as noted above from pocket knife EXAM Physical Exam Narrative Exam Narrative: General: Patient did appear to be uncomfortable secondary to her pain Head: Atraumatic, normocephalic Eyes: PERRL bilateral, EOMI bilaterally, no conjunctival injection noted Neck: Soft, supple, trachea midline Cardiovascular: Regular rate and rhythm no murmurs gallops rubs noted Musculoskeletal: Patient has distal middle finger avulsion from her pocket knife. There is no laceration to be some shut. There is mild active bleeding noted on exam. Patient is able to abduct adduct her fingers, flex extend her fingers bilaterally oppose her thumb to her pinky bilaterally as well as give me the okay sign and thumbs up sign Extremities: Radial pulses +2/4 in the bilateral per extremities, +5/5 strength noted in the bilateral upper and lower extremities Neurological: Patient following commands knew that she was at [facility] years 2023. Sensation grossly intact in the median, ulnar and radial nerve distributions bilaterally Skin: See musculoskeletal Const Vital Signs: 09/28/24 17:44 Temperature 96.4 F L Temperature Source Temporal Pulse Rate 98 Respiratory Rate 18 Blood Pressure 135/88 H Blood Pressure Mean 103 Pulse Ox 98 Oxygen Delivery Method Room Air MDM MDM MDM Narrative Medical decision making narrative: Patient is a 34-year-old female who presents to the emergency department with a chief complaint of laceration/avulsion to the distal left middle finger. Patient will have x-ray performed. On the differential diagnose includes but limited to skin avulsion, fracture, retained foreign body. Once workup is obtained reviewed she will be reevaluated. Once again the patient's tetanus shot was just recently updated does not need this updated here today. Patient did have digital block performed using 1% lidocaine without epinephrine secondary to significant pain in that finger. The volar aspect of her proximal left middle finger was cleaned and prepped in the sterile fashion followed by 2-1/2 cc of 1% lidocaine without epinephrine injected. Patient tolerated procedure well without complications. Patient's x-ray of her middle finger reviewed and showed volar aspect of the digit there is soft tissue swelling and air consistent with recent soft tissue injury this was reviewed by myself and by radiology. Surgicel was applied to the finger with hemostasis achieved. Patient had Adaptic and dressing applied to the finger she was advised to watch out for signs of infection. She is encouraged to use ibuprofen Tylenol for pain control mild to moderate pain. She is advised to use the Percocet Zofran for severe pain and not to operate anything under the influence of these medications. She is advised to follow-up with her primary care physician outpatient setting and return with any other concerns. All question concerns answered she is discharged home in stable condition. Radiography Diagnostic Testing: Clinical Impression(s) from Imaging Studies Finger X-Ray 09/28/24 18:00 IMPRESSION: In the volar aspect of the digit, there is soft tissue swelling and air consistent for recent soft tissue injury. Electronically Signed: Winston Solorzano MD at 18:51 EST Reading Location ID and State: [facility] / [place] , Service support , Discharge Plan Triage Chief Complaint: Laceration ED Provider: Donald Salazar Dx/Rx/DC Orders Clinical Impression: Finger injury Prescriptions: New ondansetron 4 mg tablet,disintegrating 4 mg PO Q6H PRN (Reason: nausea and vomiting) Qty: 20 0RF oxycodone-acetaminophen [Percocet] 5-325 mg tablet 1 tab PO Q6H PRN (Reason: pain) 2 Days Qty: 8 0RF No Action albuterol sulfate 90 mcg/actuation Hfa Aerosol Inhaler 2 puff INHALATION Q6H PRN (Reason: ASTHMA) Primary Care Provider: Sailaja Samson Referrals: Sailaja Samson MD [Primary Care Provider] - Activity Restrictions/Additional Instructions: Follow with your primary care physician. Keep the finger wrapped and clean. Watch out for signs of infection. Use the Percocet Zofran for severe pain and use Tylenol ibuprofen for mild to moderate pain. Do not operate anything under the influence of these medications. Print Language: Japanese Disposition Disposition: Home, Self Care
[2024-09-28] MEDS: HYDROcodone Bitartrate/Apap 5/325 Tablet PO (18:40)
[2024-09-28] MEDS: Ondansetron ODT 4 MG Tablet PO (18:40)
[2024-09-28 19:58] VITALS: BP 128/71; PULSE 67; RESP 18; TEMP 36.7; O2SAT 100
== END 2024-09-28 20:17 | disposition home or self-care (01) ==
PROVIDERS: Emergency Provider Emergency Medicine; PCP Internal Medicine; Visit Provider Emergency Medicine
DX: S61.213A Laceration without foreign body of left middle finger without damage to nail, initial encounter (principal); W26.0XXA Contact with knife, initial encounter; Z90.49 Acquired absence of other specified parts of digestive tract; Z90.710 Acquired absence of both cervix and uterus; F17.290 Nicotine dependence, other tobacco product, uncomplicated
CPT/HCPCS: 64450; 73140; 99282

== ENCOUNTER 2025-03-28 10:07 | Emergency (ER) | payer MEDICAID, SELFPAY ==
[2025-03-28 10:08] VITALS: BP 115/85; PULSE 87; RESP 16; TEMP 36.7; O2SAT 98; BMI 17.2
--- NOTE | 2025-03-28 10:23 | CT_ITS ---
EXAM: CT Head Without Intravenous Contrast CLINICAL INDICATION: HEADACHE TECHNIQUE: Axial computed tomography images of the head/brain without intravenous contrast. This CT exam was performed using one or more of the following dose reduction techniques: automated exposure control, adjustment of the mA and/or kV according to patient size, and/or use of iterative reconstruction technique. COMPARISON: No relevant prior studies available. FINDINGS: BRAIN AND EXTRA-AXIAL SPACES: No acute intracranial hemorrhage, midline shift or mass effect. If symptoms persist, further evaluation with MRI is recommended. No significant white matter disease. BONES/JOINTS: Unremarkable. No acute fracture. SOFT TISSUES: Unremarkable. SINUSES: Unremarkable as visualized. No acute sinusitis. MASTOID AIR CELLS: Unremarkable as visualized. No mastoid effusion. CT/Brain/Head without Contrast IMPRESSION: No acute intracranial hemorrhage, midline shift or mass effect. If symptoms per sist, further evaluation with MRI is recommended. Reading Location: [id number]
--- NOTE | 2025-03-28 10:23 | EKG12_ITS ---
Test Reason : HEADACHE Blood Pressure : */* mmHG Vent. Rate : 57 BPM Atrial Rate : 57 BPM P-R Int : 122 ms QRS Dur : 78 ms QT Int : 404 ms P-R-T Axes : 35 74 59 degrees QTcB Int : 393 ms Sinus bradycardia Otherwise normal ECG Confirmed by ZENA MAURO, BATSHEVA ([id number]), proposal editor JORGE PARK ([id number]) on 03/30/2025 9:15:42 AM Referred By: Confirmed By: BATSHEVA FREITAS MD
--- NOTE | 2025-03-28 10:49 | EDS_ITS ---
HPI History of Present Illness Chief Complaint: Headache Informant: patient Narrative Narrative: Presents for evaluation concerns for unequal pupils noted on the left side. She states she been having intermittent left-sided headache for years, no head trauma. Last 4 months increasing migraine symptoms. Mother had strokes, had Adamson's palsy. Patient also reports intermittent chest discomfort that lasts a second. No cough. She vapes. She does marijuana. Denies vomiting or diarrhea. Note she states she had her eye exam 3 days ago at [facility]. She had recommended dilation of her eyes however she declined this. She was given trial contacts the last 2 weeks she did remove them but amount in the mornings.She reports she has told her PCP about her headaches however no images have been performed. [facility] Medical History Pyelonephritis Smoker Wears contact lenses Wears glasses Depression Anxiety History of steroid therapy Arthritis Kidney stones Back pain Migraine headache Injury of head and neck Gastric reflux Shortness of breath on exertion History of edema History of irregular heartbeat Renal calculus Substance abuse Gastritis Asthma Home Medications ?Medication ?Instructions ?Recorded ?Last Taken ?Type NK 03/28/25 Unknown History Allergy/AdvReac Type Severity Reaction Status Date / Time No Known Allergies Allergy Verified 03/28/25 10:11 Family History Mother Asthma Arthritis Lung cancer Osteoporosis Thyroid disorder Surgical History Hx of colonoscopy History of esophagogastroduodenoscopy (EGD) Hx of dilation and curettage Hx of thumb surgery Hx of laparoscopy History of tonsillectomy and adenoidectomy History of appendectomy History of hysterectomy Social History household members: children Smoking Status: Current every day smoker tobacco type: e-cigarettes alcohol intake: current substance use type: does not use additional social history: no aspirin use no ibuprofen use ROS ROS ED Constitutional Constitutional ED: Denies chills, fever(s) or sweats Eyes Eyes: Reports blurry vision ENT ENT ED: Denies sore throat Cardiovascular Cardiovascular: Denies chest pain, leg edema, palpitations or racing heartbeat Respiratory/Chest Respiratory/Chest: Denies cough, dyspnea or dyspnea on exertion Gastrointestinal Gastrointestinal: Denies abdominal pain, diarrhea, nausea or vomiting Genitourinary Genitourinary ED: Denies dysuria, hematuria or urinary frequency Musculoskeletal Musculoskeletal: Denies back pain, extremity pain or neck pain Integumentary Denies rash or wounds Neurologic Neurologic: Reports headache(s); Denies paresthesias or weakness EXAM Physical Exam Const Vital Signs: 03/28/25 10:08 03/28/25 11:08 Temperature 98.1 F Temperature Source Oral Pulse Rate 87 67 Respiratory Rate 16 13 Blood Pressure 115/85 H 119/70 Blood Pressure Mean 95 86 Pulse Ox 98 100 Oxygen Delivery Method Room Air Room Air Positive well nourished and well developed General Appearance ED: well developed and NAD HEENT Reports moist mucous membranes normocephalic and atraumatic Eyes Eyes Narrative: Slight anisocoria of the pupils more dilation left compared to right. Neck full ROM and no meningeal signs Chest Wall Chest: Negative for tenderness Resp normal respiratory effort and normal air movement Effort and Inspection: symmetric chest movement; Negative for respiratory distress Cardio regular rate, regular rhythm and no murmurs Peripheral Pulses: pulses 2+ throughout GI normal to inspection, nondistended, normoactive bowel sounds and non-tender Palpation: Negative for guarding or rebound tenderness present Extremity normal to inspection General Extremety ED: Negative for edema or tenderness General Extremity: Negative for edema Neuro oriented x3, CN's II-XII intact bilaterally and no sensory deficits noted Sensorium / Orientation: awake and alert Skin no rashes or lesions noted and no wounds MDM MDM MDM Narrative Medical decision making narrative: Interventions / MDM: Differential diagnosis: Nonspecific headache, palpitations Diagnosis considered but do not suspect: Intracranial mass/hemorrhage however CT negative. My EKG interpretation: Sinus rhythm 57, no ST or T wave changes QTc 393. Imaging independently reviewed and interpreted by myself: CT brain: No acute process also read by radiology. External documents reviewed: N/A Test considered but not ordered:N/A ED course: Patient intermittent headaches none currently no meningismus. There is slight pupil difference size left greater than the right. Nontoxic. Will send her for CT brain for evaluation. 1133: CT negative. She is reassured on the findings. Unclear on the unequal pupils which is resolving. She did not get dilation of her eyes she did start with new contacts in clears solution. She will monitor symptoms. EKG was normal. Intermittent headache she will be referred to neurology. No distress at this time. She will follow-up with her PCP palpitations. She states she does not drink caffeine or energy drinks. She will continue to avoid this. All questions were answered. Re-evaluation: stable Disposition discussed with patient/family/significant other: Patient Case discussed with consulting clinician: N/A This note was generated with [employer] dictation software. It may contain incorrect words, spelling, and punctuation that were not noted in checking the note before signing. Radiography Diagnostic Testing: Clinical Impression(s) from Imaging Studies Brain CT 03/28/25 10:23 IMPRESSION: No acute intracranial hemorrhage, midline shift or mass effect. If symptoms persist, further evaluation with MRI is recommended. Reading Location: [facility] Discharge Plan Triage Chief Complaint: Headache ED Provider: Marcin Lozano Dx/Rx/DC Orders Clinical Impression: Headache, Anisocoria Instructions: ED Headache Unspecified Prescriptions: No Action NK Primary Care Provider: Sailaja Samson Referrals: Sailaja Samson MD [Primary Care Provider] - 1 Week Seven Cueto MD [Non-Staff -Ordering Privileges] - 1-2 Weeks Activity Restrictions/Additional Instructions: CT brain negative. May follow-up with neurology for outpatient valuation of your intermittent headaches. Intermittent brief palpitations EKG normal. Avoid caffeine products or energy drinks. Follow-up with your PCP. Print Language: Mexican Disposition Disposition: Home, Self Care
[2025-03-28 11:08] VITALS: BP 119/70; PULSE 67; RESP 13; O2SAT 100
[2025-03-28 11:43] VITALS: BP 119/70; PULSE 67; RESP 13; TEMP 37; O2SAT 100
== END 2025-03-28 11:43 | disposition home or self-care (01) ==
PROVIDERS: Emergency Provider Emergency Medicine; PCP Internal Medicine; Visit Provider Emergency Medicine
DX: R51.9 Headache, unspecified (principal); H57.02 Anisocoria; Z90.710 Acquired absence of both cervix and uterus; Z90.49 Acquired absence of other specified parts of digestive tract; F17.290 Nicotine dependence, other tobacco product, uncomplicated
CPT/HCPCS: 70450; 93005; 99282

== ENCOUNTER 2025-10-02 18:41 | Emergency (ER) | payer MEDICAID, SELFPAY ==
[2025-10-02 18:42] VITALS: BP 114/92; PULSE 78; RESP 18; TEMP 36.8; O2SAT 100; BMI 17.2
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
[2025-10-02] MEDS: HYDROcodone Bitartrate/Apap 5/325 Tablet PO (21:08)
--- OUTSIDE RECORDS SUMMARY | 2025-10-02 21:10 | XMS RPT_ITS | CCD ---
Author Organization [facility] Care Team Providers Care Features Editor Name Role Phone Michelle Wilcox Primary Care Provider Dr. Michelle Wilcox Primary Care Provider Dr. Lukas Medina Emergency Provider Dr. Ti Godoy Admit Provider Dr. Ti Godoy Attending Provider Dr. Ti Godoy Other Provider Dr. Tierney Alfonso Other Provider Dr. Eddie Mathews Attending Provider Dr. Eddie Mathews Other Provider Michelle Wilcox MD Primary Care Provider Michelle Wilcox MD Primary Care Provider Dr. Michelle Wilcox Primary Care Provider Dr. Wild Pollard Emergency Provider Dr. Demetrius Ibanez Admit Provider Dr. Demetrius Ibanez Other Provider Dr. Augustine Blair Other Provider Dr. Maame Bergman Attending Provider Dr. 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 Michelle Wilcox MD Primary Care Provider Dr. Marcin Lozano DO Emergency Provider Donald Salazar Attending Unavailable Ganta, Michelle Primary Care Unavailable Marcin Lozano Attending Unavailable Ganta, Michelle Primary Care Unavailable Ganta, Michelle Primary Care Unavailable Tierney Alfonso Attending Unavailable GANTA, MICHELLE Referring Unavailable GANTA, MICHELLE Primary Care Unavailable GANTA, MICHELLE Attending Unavailable GANTA, MICHELLE Primary Care Unavailable GANTA, MICHELLE Referring Unavailable GANTA, MICHELLE Primary Care Unavailable BOGNER, ROBERT Attending Unavailable SELF Referring Unavailable GANTA, MICHELLE Primary Care Unavailable GANTA, MICHELLE Attending Unavailable GANTA, MICHELLE Referring Unavailable GANTA, MICHELLE Primary Care Unavailable BOGNER, ROBERT Referring Unavailable GANTA, MICHELLE Primary Care Unavailable SHRESTHA, VAUGHN Referring Unavailable GANTA, MICHELLE Primary Care Unavailable SHRESTHA, VAUGHN Attending Unavailable GANTA, MICHELLE Primary Care Unavailable GANTA, MICHELLE Attending Unavailable GANTA, MICHELLE Primary Care Unavailable GANTA, MICHELLE Referring Unavailable GANTA, MICHELLE Primary Care Unavailable VIC DAVIS Attending Unavailable GANTA, MICHELLE Primary Care Unavailable BOGNER, ROBERT Attending Unavailable GANTA, MICHELLE Primary Care Unavailable SHRESTHA, VAUGHN Attending Unavailable GANTA, MICHELLE Primary Care Unavailable SHRESTHA, VAUGHN Attending Unavailable GANTA, MICHELLE Primary Care Unavailable GANTA, MICHELLE Attending Unavailable GANTA, MICHELLE Primary Care Unavailable Allergies Allergy Classification Reported Allergen(s) Allergy Type Date of Onset Reaction(s) Facility (20 sources) Acetaminophen / HYDROcodone; Translations: [HYDROCODONE-ACETA MINOPHEN] Drug Allergy 10-07-[address] [facility] Medications Current Medications Medication Drug Class(es) Dates Sig (Normalized) Sig (Original) acetaminophen 325 mg / HYDROcodone bitartrate 7.5 mg oral tablet (20 sources) Opioid Agonist Start: 09-30-2024 End: 10-05-2024 take 1 tablet by mouth every eight hours as needed for pain HYDROcodone-Aceta minophen (NORCO) 7.5-325 mg per tablet Indications: Cut of skin of middle finger Take 1 tablet by mouth every 8 hours as needed for pain for up to 5 days. 5 tablet 09/30/2024 10/05/2024 Active Start: 07-03-2024 End: 07-08-2024 take 1 tablet by mouth every eight hours as needed for pain HYDROcodone-acetaminophen (NORCO) 5-325 mg per tablet Indications: Cut of finger Take 1 tablet by mouth every 8 hours as needed for pain for up to 5 days. 15 tablet 07/03/2024 07/08/2024 Active Start: 05-06-2024 End: 05-13-2024 take 1 tablet by mouth every six hours as needed for pain HYDROcodone-acetaminophen (NORCO) 5-325 mg per tablet Indications: Closed fracture of left foot, initial encounter Take 1 tablet by mouth every 6 hours as needed for pain for up to 7 days. 28 tablet 0 05/06/2024 05/13/2024 Active Start: 05-05-2024 End: 05-22-2024 Hydrocodone-Acetaminophen 5- 325 mg tablet Discontinued 1 {tbl} PO EVERY 4 HOURS NEEDED as needed for Pain 10 May 05, 2024 May 22, 2024 10:56pm Start: 03-10-2024 End: 03-11-2024 take 1 tablet by mouth every six hours as needed for pain HYDROcodone-Acetaminophen (NORCO) 7.5-32 5 mg per tablet Indications: Left flank pain , Renal calculus Take 1 tablet by mouth every 6 hours as needed for pain for up to 1 day. 4 tablet 0 03/10/2024 03/11/2024 Start: 03-04-2024 End: 03-07-2024 take 1 tablet by mouth every six hours as needed for pain HYDROcodone-Acetaminophen (NORCO) 7.5-32 5 mg per tablet Indications: Left flank pain , Renal calculus Take 1 tablet by mouth every 6 hours as needed for pain for up to 3 days. 12 tablet 0 03/04/2024 03/07/2024 Discontinued Start: 02-25-2024 End: 02-28-2024 take 1 tablet by mouth every six hours as needed for pain HYDROcodone-Acetaminophen (NORCO) 7.5-32 5 mg per tablet Indications: Left flank pain , Renal calculus Take 1 tablet by mouth every 6 hours as needed for pain for up to 3 days. 12 tablet 0 02/25/2024 02/28/2024 Active Start: 02-05-2024 End: 02-20-2024 take 1 tablet by mouth every eight hours as needed for pain HYDROcodone-acetaminophen (NORCO) 5-325 mg per tablet Indications: Abnormal finding of kidney , Pyelonephritis of right kidney Take 1 tablet by mouth every 8 hours as needed for pain for up to 7 days. 21 tablet 0 02/13/2024 02/20/2024 Active Start: 01-30-2024 End: 01-30-2024 Hydrocodone-Acetaminophen 5- 325 mg tablet Discontinued 1 {tbl} PO Q8H as needed for PAIN January 30, 2024 12:00am January 30, 2024 1:47pm Start: 01-30-2024 End: 01-30-2024 take 1 tablet by mouth every eight hours Hydrocodone-Acetaminophen Discontinued 1 TABLET PO Q8H January 30, 2024 12:00am January 30, 2024 1:47pm Start: 05-31-2022 End: 01-27-2024 take 1 tablet by mouth every eight hours as needed for pain HYDROcodone-acetaminophen (NORCO) 5-325 mg per tablet Indications: Cervicalgia , Pain of left upper extremity Take 1 tablet by mouth every 8 hours as needed for pain for up to 5 days. 15 tablet 0 01/22/2024 01/27/2024 Active Start: 04-19-2022 End: 05-22-2022 take 1 tablet by mouth every eight hours as needed for pain HYDROcodone-acetaminophen (NORCO) 5-325 mg per tablet Indications: Left lower quadrant pain , Left upper quadrant abdominal pain Take 1 tablet by mouth every 8 hours as needed for pain for up to 2 days. 6 tablet 0 05/20/2022 05/22/2022 Start: 03-31-2022 End: 04-07-2022 take 1 tablet by mouth every twelve hours as needed for urinary tract infection and urinary tract infection HYDROcodone-acetaminophen (NORCO) 5-325 mg per tablet Indications: Urinary tract infection without hematuria, site unspecified Take 1 tablet by mouth twice daily as needed for pain for up to 7 days. 7 tablet 0 03/31/2022 04/07/2022 Active Start: 03-18-2022 End: 03-25-2022 take 1 tablet by mouth every eight hours as needed for urinary tract infection and urinary tract infection HYDROcodone-acetaminophen (NORCO) 5-325 mg per tablet Indications: Urinary tract infection without hematuria, site unspecified Take 1 tablet by mouth every 8 hours as needed for pain for up to 7 days. 14 tablet 0 03/18/2022 03/25/2022 Active Start: 02-27-2022 End: 03-06-2022 take 1 tablet by mouth every eight hours as needed for urinary tract infection and urinary tract infection HYDROcodone-acetaminophen (NORCO) 5-325 mg per tablet Indications: Urinary tract infection without hematuria, site unspecified Take 1 tablet by mouth every 8 hours as needed for pain for up to 7 days. 14 tablet 0 02/27/2022 03/06/2022 Active Start: 02-17-2022 End: 02-24-2022 take 1 tablet by mouth every eight hours as needed for urinary tract infection and urinary tract infection HYDROcodone-acetaminophen (NORCO) 5-325 mg per tablet Indications: Urinary tract infection without hematuria, site unspecified Take 1 tablet by mouth every 8 hours as needed for pain for up to 7 days. 14 tablet 0 02/17/2022 02/24/2022 Active Start: 09-01-2020 End: 09-08-2020 take 1 tablet by mouth every eight hours as needed for pain HYDROcodone-acetaminophen (NORCO) 5-325 mg per tablet Indications: Acute thoracic myofascial strain, initial encounter , Neck pain , Acute left-sided thoracic back pain Take 1 tablet by mouth every 8 hours as needed for Pain for up to 5 days. 15 tablet 09/01/2020 09/08/2020 Discontinued Comment on above: Take 1 tablet by troy th every 8 hours as needed for pain for up to 7 days. Take 1 tablet by troy th twice daily as needed for pain for up to 7 days. Take 1 tablet by troy th every 8 hours as needed for pain. Take 1 tablet by troy th every 8 hours as needed for pain for up to 2 days. Take 1 tablet by troy th every 8 hours as needed for pain for up to 5 days. Take 1 tablet by troy th every 6 hours as needed for pain for up to 3 days. Albuterol Sulfate (20 sources) beta2-Adrenergic Agonist Start: 03-21-2022 take 1 puff(s) by inhalation every six hours Albuterol Sulfate Active 2 PUFF INHALATION EVERY 6 HOURS March 21, 2022 10:40am Start: 03-21-2022 End: 03-28-2025 Albuterol Sulfate 90 mcg/act uation Hfa Aerosol Inhaler Discontinued 2 NMA INHALATION EVERY 6 HOURS as needed for ASTHMA March 21, 2022 12:00am March 28, 2025 10:26am Start: 03-21-2022 take 1 puff(s) by in halation every six hours Albuterol Sulfate Active 2 PUFF INHALATION EVERY 6 HOURS March 21, 2022 12:00am Start: 07-30-2021 End: 08-29-2021 take 2 puff(s) by inhalation every four hours as needed for wheezing albuterol sulfate HFA (PROVENTIL HFA) 108 (90 Base) MCG/ACT inhaler Inhale 2 puffs into the lungs every 4 hours as needed for Wheezing or Shortness of Breath With spacer (and mask if indicated). Thanks. 18 g 2 07/30/2021 08/29/2021 Active Start: 12-26-2020 take 2 puff(s) by in halation every six hours as needed for wheezing albuterol sulfate HFA 108 (90 Base) MCG/ACT inhaler Inhale 2 puffs into the lungs every 6 hours as needed for Wheezing 1 Inhaler 5 12/26/2020 Active Start: 07-28-2019 End: 07-30-2019 Albuterol Sulfate 1 INHALER inhaler Discontinued 1 - 2 NMA INHALATION EVERY 4 HOURS NEEDED as needed for Asthma July 28, 2019 12:00am July 30, 2019 3:14pm Start: 07-28-2019 End: 07-30-2019 take 1 puff(s) by inhalation every four hours as needed Albuterol Sulfate Discontinued 1 - 2 PUFF INHALATION EVERY 4 HOURS NEEDED July 28, 2019 12:00am July 30, 2019 3:14pm End: 07-03-2024 ALBUTEROL SULFATE INHALATION Inhale as instructed. 07/03/2024 Discontinued ALBUTEROL SULFAT E INHALATION Inhale as instructed. 0 Active End: 12-26-2020 take 2 puff(s) by inhalation every six hours as needed for wheezing albuterol (PROVENTIL HFA;VENTOLIN HFA) 108 (90 BASE) MCG/ACT inhaler Inhale 2 puffs into the lungs every 6 hours as needed for Wheezing 0 12/26/2020 Discontinued (REORDER) Comment on above: Inhale as instructed . albuterol sulfate HFA 108 (90 Base) MCG/ACT inhaler (3 sources) Start: take 2 puff(s) by inhalation every six hours as needed for wheezing albuterol sulfate HFA 108 (90 Base) MCG/ACT inhaler Inhale 2 puffs into the lungs every 6 hours as needed for Wheezing 1 Inhaler 5 12/26/2020 Active Start: 07-21-2019 End: 12-26-2020 take 4 puff(s) by inhalation every four hours as needed for wheezing albuterol sulfate HFA 108 (90 Base) MCG/ACT inhaler Inhale 4 puffs into the lungs every 4 hours as needed for Wheezing 1 Inhaler 3 07/21/2019 12/26/2020 Discontinued Start: 07-21-2019 take 4 puff(s) by in halation every four hours as needed for wheezing albuterol sulfate HFA 108 (90 Base) MCG/ACT inhaler Inhale 4 puffs into the lungs every 4 hours as needed for Wheezing 1 Inhaler 3 07/21/2019 Active doxycycline hyclate 100 mg oral tablet (1 source) Tetracycline-class Drug Start: 07-03-2024 End: 07-13-2024 take 1 tablet by mouth twice daily doxycycline (VIBRA-TABS) 100 mg tablet Indications: Cut of finger Take 1 tablet by mouth two times a day for 10 days. 20 tablet 07/03/2024 07/13/2024 Active enteric contrast (will be provided with radiology test) (1 source) Start: 05-20-2022 End: 05-21-2022 enteric contrast (will be provided with radiology test) For CT ABD/PEL W IVCON Routine order Administer, As Directed One Time Only, via Oral, Rectal, both Oral and Rectal, Enteric Tube, Stoma or Indwelling Catheter, Enteric Contrast as designated per enteric contrast guidelines 1 Each 0 05/20/2022 05/21/2022 Active Comment on above: For CT ABD/PEL W IVC ON Routine order Administer, As Directed One Time Only, via Oral, Rectal, both Oral and Rectal, Enteric Tube, Stoma or Indwelling Catheter, Enteric Contrast as designated per enteric contrast guidelines iv contrast (will be provided with radiology test) (1 source) Start: 05-20-2022 End: 05-21-2022 iv contrast (will be provided with radiology test) CT ABD/PEL -Inject, intravenously, once for 1 dose.No IV access, insert saline lock prior to the beginning of sedation, infusion, injection of imaging exam. Discontinue saline lock post exam. If Pt. has a central line or IVAD, may access for administration according to line specific nursing protocol. Once exam is complete flush line and de-access according to line specific nursing protocol in the CT contrast administration guidelines link. 1 Each 0 05/20/2022 05/21/2022 Active Comment on above: CT ABD/PEL -Inject, intravenously, once for 1 dose.No IV access, insert saline lock prior to the beginning of sedation, infusion, injection of imaging exam. Discontinue saline lock post exam. If Pt. has a central line or IVAD, may access for administration according to line specific nursing protocol. Once exam is complete flush line and de-access according to line specific nursing protocol in the CT contrast administration guidelines link. ketorolac tromethamine 10 mg oral tablet (6 sources) Nonsteroidal Anti-inflammatory Drug, Cyclooxygenase Inhibitor Start: 11-13-2024 End: 11-18-2024 take 1 tablet by mouth every six hours as needed for pain keTORolac (TORADOL) 10 mg tablet Indications: Chest wall discomfort Take 1 tablet by mouth every 6 hours as needed for pain for up to 5 days. 20 tablet 11/13/2024 11/18/2024 Discontinued Start: 11-13-2024 End: 11-13-2024 keTORolac 60 mg injection (T oradol) Start: 11-13-2024 End: 11-13-2024 60 mg, INTRAMUSCULAR, ONCE, 1 dose, On Laura 11/13/24 at 1400, Ketorolac (Toradol) is indicated for the short-term (up to 5 days) management of moderately severe acute pain. Continuation of ketorolac (Toradol) beyond 5 days increases the risk of developing serious adverse events. Please verify the duration of therapy for ketorolac (Toradol). Start: 01-21-2024 End: 01-21-2024 keTORolac 60 mg injection (T oradol) LORazepam 1 mg oral tablet (2 sources) Benzodiazepine Start: 12-26-2020 End: 12-29-2020 take 1-2 tablets by mouth every six hours as needed for anxiety LORazepam (ATIVAN) 1 MG tablet Indications: Hyperventilation syndrome , Anxiety state Take 1-2 tablets by mouth every 6 hours as needed for Anxiety for up to 3 days. 5 tablet 0 12/26/2020 12/29/2020 Active Start: 12-26-2020 End: 12-26-2020 LORazepam (ATIVAN) injection 0.5 mg meloxicam 15 mg oral tablet (20 sources) Nonsteroidal Anti-inflammatory Drug Start: 07-07-2025 End: 08-06-2025 take 1 tablet by mouth once daily as needed for pain meloxicam (MOBIC) 15 mg tablet Indications: UTI symptoms , History of kidney stones , Left flank pain , Microscopic hematuria Take 1 tablet by mouth once daily. as needed for pain. Take with food. 30 tablet 07/07/2025 08/06/2025 Active Start: 11-18-2024 End: 12-18-2024 take 1 tablet by mouth once daily for pain meloxicam (MOBIC) 15 mg tablet Take 1 tablet by mouth once daily. for pain. Take with food. 30 tablet 11/18/2024 12/18/2024 Active Start: 10-07-2024 End: 11-06-2024 take 1 tablet by mouth once daily for pain meloxicam (MOBIC) 15 mg tablet Indications: Injury of finger of left hand, subsequent encounter Take 1 tablet by mouth once daily. for pain. Take with food. 30 tablet 10/07/2024 11/06/2024 Active Start: 08-08-2021 take 1 tablet by troy th once daily meloxicam (MOBIC) 7.5 MG tablet Take 1 tablet by mouth daily 15 tablet 1 08/08/2021 Active Start: 07-22-2020 End: 06-05-2022 take 1 tablet by mouth once daily at mealtime meloxicam (MOBIC) 15 mg tablet Take 1 tablet by mouth once daily. With food. 30 tablet 2 07/22/2020 06/05/2022 Discontinued (.All criteria met for discontinuation) Comment on above: Take 1 tablet by troy once daily. With food. methylPREDNISolone (2 sources) Corticosteroid Start: 2024 End: 2024 methylPREDNISolone (MEDROL, EUN,) 4 mg Dose-Pack Indications: Acute bilateral low back pain with bilateral sciatica , Injury of back, subsequent encounter As instructed per package 21 tablet 03/13/2025 03/19/2025 Active morphine sulfate 15 mg oral tablet (1 source) Opioid Agonist Start: 2020 End: 2020 take 0.5-1 tablets by mouth every four hours as needed for pain morphine (MSIR) 15 MG tablet Indications: Closed boxer's fracture, initial encounter Take 0.5-1 tablets by mouth every 4 hours as needed for Pain (pain not responding to meloxicam and tylenol) for up to 3 days. 6 tablet 0 08/08/2021 08/11/2021 Active mupirocin 20 mg/ml topical cream (3 sources) RNA Synthetase Inhibitor Antibacterial Start: 2023 End: 2023 mupirocin (BACTROBAN) 2 % cream Apply 1 application to affected area three times a day for 10 days. Location: middle finger- left 15 g 09/30/2024 10/10/2024 Active [place] (Nk) (1 source) Start: 2024 [place] (Nk) Active March 28, 2025 12:00am pantoprazole 20 mg delayed release oral tablet (20 sources) Proton Pump Inhibitor Start: 2024 End: 2024 take 1 tablet by mouth once daily pantoprazole DR (PROTONIX) 20 mg tablet Take 1 tablet by mouth once daily for 14 days. 14 tablet 03/13/2025 Active Start: 02-06-2022 End: 06-05-2022 take 1 tablet by mouth once daily before breakfast pantoprazole DR (PROTONIX) 40 mg tablet Take 1 tablet by mouth daily before breakfast. Take on empty stomach, 1/2 hr before meal. 30 tablet 3 02/06/2022 06/05/2022 Discontinued (.All criteria met for discontinuation) Comment on above: Take 1 tablet by troy daily before breakfast. Take on empty stomach, 1/2 hr before meal. rizatriptan 5 mg oral tablet (3 sources) Serotonin-1b and Serotonin-1d Receptor Agonist Start: take 1 tablet by mouth every two hours as needed rizatriptan (MAXALT) 5 mg tablet Indications: Migraine without aura and without status migrainosus, not intractable Take 1 tablet by mouth as needed. May repeat dose after 2 hours if needed. Maximum daily dose is 30 mg per day. 30 tablet 4 03/31/2025 Active sodium chloride flush 0.9 % injection 3 mL (1 source) Start: sodium chloride flush 0.9 % injection 3 mL tamsulosin hydrochloride 0.4 mg oral capsule (20 sources) alpha-Adrenergic Jimi Start: End: take 1 capsule by mouth once daily at bedtime tamsulosin (FLOMAX) 0.4 mg Indications: UTI symptoms , History of kidney stones , Left flank pain , Microscopic hematuria Take 1 capsule by mouth daily at bedtime. 30 capsule 07/07/2025 08/06/2025 Active Start: 02-22-2024 End: 07-03-2024 take 1 capsule by mouth once daily at bedtime tamsulosin (FLOMAX) 0.4 mg Indications: Left flank pain Take 1 capsule by mouth daily at bedtime. 15 capsule 02/22/2024 07/03/2024 Discontinued Start: 04-19-2022 End: 06-05-2022 take 1 capsule by mouth once daily at bedtime tamsulosin (FLOMAX) 0.4 mg Take 1 capsule by mouth daily at bedtime. 30 capsule 2 04/19/2022 06/05/2022 Discontinued (.All criteria met for discontinuation) Comment on above: Take 1 capsule by mo [place] daily at bedtime. Completed/Discontinued Medications Medication Drug Class(es) Dates Sig (Normalized) Sig (Original) acetaminophen 500 mg oral tablet (8 sources) Start: 01-26-2022 End: 12-19-2023 take 2 tablets by mouth every six hours as needed for pain Acetaminophen 500 mg Tablet Discontinued 1000 mg PO EVERY 6 HOURS as needed for Pain January 26, 2022 12:00am December 19, 2023 6:17pm Start: 01-26-2022 End: 12-19-2023 take 1000 mg by mouth every six hours Acetaminophen Discontinued 1000 MG PO EVERY 6 HOURS January 26, 2022 12:00am December 19, 2023 6:17pm Start: 08-08-2021 End: 08-08-2021 acetaminophen (TYLENOL) tabl et 650 mg Start: 06-18-2020 End: 06-18-2020 acetaminophen (TYLENOL) tabl et 1,000 mg acetaminophen 325 mg / oxyCODONE hydrochloride 5 mg oral tablet (20 sources) Opioid Agonist Start: 07-07-2025 End: 07-14-2025 take 1 tablet by mouth every eight hours as needed for pain oxyCODONE-acetaminophen (PERCOCET) 5-325 mg tablet Indications: UTI symptoms , History of kidney stones , Left flank pain , Microscopic hematuria , Malaise and fatigue , Chills Take 1 tablet by mouth every 8 hours as needed for pain for up to 7 days. 21 tablet 07/07/2025 07/14/2025 Start: 03-13-2025 End: 03-18-2025 take 1 tablet by mouth every eight hours as needed for pain oxyCODONE-acetaminophen (PERCOCET) 5-325 mg tablet Indications: Acute bilateral low back pain with bilateral sciatica , Injury of back, subsequent encounter Take 1 tablet by mouth every 8 hours as needed for pain for up to 5 days. 10 tablet 03/13/2025 03/18/2025 Active Start: 12-02-2024 End: 12-05-2024 take 1 tablet by mouth every eight hours as needed oxyCODONE-acetaminophen (PERCOCET) 5-325 mg tablet Indications: Rib pain on right side Take 1 tablet by mouth every 8 hours as needed for up to 3 days. 9 tablet 12/02/2024 12/05/2024 Active Start: 11-18-2024 End: 11-21-2024 take 1 tablet by mouth every eight hours as needed for pain oxyCODONE-acetaminophen (PERCOCET) 5-325 mg tablet Indications: Chest wall discomfort , History of fractured rib Take 1 tablet by mouth every 8 hours as needed for pain for up to 3 days. 9 tablet 11/18/2024 11/21/2024 Active Start: 11-13-2024 End: 11-16-2024 take 1 tablet by mouth every eight hours as needed for pain oxyCODONE-acetaminophen (PERCOCET) 5-325 mg tablet Indications: Chest wall discomfort , History of fractured rib Take 1 tablet by mouth every 8 hours as needed for pain for up to 3 days. 9 tablet 11/13/2024 11/16/2024 Active Start: 10-07-2024 End: 10-10-2024 take 1 tablet by mouth every eight hours as needed for pain oxyCODONE-acetaminophen (PERCOCET) 5-325 mg tablet Indications: Injury of finger of left hand, subsequent encounter Take 1 tablet by mouth every 8 hours as needed for pain for up to 3 days. 9 tablet 10/07/2024 10/10/2024 Active Start: 09-28-2024 End: 03-28-2025 Oxycodone-Acetaminophen (Per cocet) 5-325 mg tablet Discontinued 1 {tbl} PO EVERY 6 HOURS as needed for pain 8 2 September 28, 2024 March 28, 2025 10:26am Start: 04-24-2024 End: 05-01-2024 take 1 tablet by mouth every six hours as needed for pain oxyCODONE-acetaminophen (PERCOCET) 5-325 mg tablet Indications: Closed fracture of left foot, initial encounter Take 1 tablet by mouth every 6 hours as needed for pain for up to 7 days. 28 tablet 0 04/24/2024 05/01/2024 Active Start: 08-04-2019 End: 08-11-2019 Oxycodone-Acetaminophen 1 EA CH tablet Discontinued 1 NMA PO EVERY 6 HOURS NEEDED as needed for Severe Pain () 10 August 04, 2019 August 10, 2019 12:00am August 11, 2019 12:10am Start: 08-04-2019 End: 08-11-2019 Oxycodone-Acetaminophen Disc ontinued 1 EACH PO EVERY 6 HOURS NEEDED 10 August 04, 2019 August 11, 2019 12:10am Start: 03-30-2017 End: 04-04-2017 Oxycodone-Acetaminophen 1 TA BLET tablet Discontinued 1 - 2 {tbl} PO EVERY 4 HOURS NEEDED as needed for Pain March 30, 2017 12:00am April 04, 2017 7:32am Start: 03-30-2017 End: 04-04-2017 take 1 tablet by mouth every four hours as needed Oxycodone-Acetaminophen Discontinued 1 - 2 TABLET PO EVERY 4 HOURS NEEDED March 30, 2017 12:00am April 04, 2017 7:32am Start: 10-10-2015 End: 12-23-2015 Oxycodone-Acetaminophen 1 TA BLET tablet Discontinued 1 - 2 {tbl} PO EVERY 4 HOURS NEEDED as needed for Pain October 10, 2015 1:00am December 23, 2015 3:20pm Start: 10-10-2015 End: 12-23-2015 take 1 tablet by mouth every four hours as needed Oxycodone-Acetaminophen Discontinued 1 - 2 TABLET PO EVERY 4 HOURS NEEDED October 10, 2015 1:00am December 23, 2015 3:20pm Start: 12-15-2014 End: 01-20-2015 Oxycodone-Acetaminophen 1 TA BLET tablet Discontinued 1 {tbl} PO EVERY 6 HOURS NEEDED as needed for Pain December 15, 2014 1:00am January 20, 2015 11:36am Start: 12-15-2014 End: 01-20-2015 take 1 tablet by mouth every six hours as needed Oxycodone-Acetaminophen Discontinued 1 TABLET PO EVERY 6 HOURS NEEDED December 15, 2014 1:00am January 20, 2015 11:36am End: 06-18-2020 take 1 tablet by mouth every four hours as needed for pain oxyCODONE-acetaminophen (PERCOCET) 10-32 5 MG per tablet Take 1 tablet by mouth every 4 hours as needed for Pain 0 06/18/2020 Discontinued benzonatate 200 mg oral capsule (3 sources) Non-narcotic Antitussive Start: 01-30-2024 End: 05-22-2024 take 1 capsule by mouth three times daily as needed Benzonatate 200 mg capsule Discontinued 200 mg PO THREE TIMES A DAY as needed for COUGHING January 30, 2024 12:00am May 22, 2024 10:56pm calcium chloride 0.0014 meq/ml / potassium chloride 0.004 meq/ml / sodium chloride 0.103 meq/ml / sodium lactate 0.028 meq/ml injectable solution (1 source) Start: 12-26-2020 End: 12-26-2020 lactated ringers bolus cefdinir 300 mg oral capsule (5 sources) Cephalosporin Antibacterial Start: 02-02-2024 End: 05-22-2024 take 1 capsule by mouth twice daily cefdinir (OMNICEF) 300 mg capsule Indications: Pyelonephritis of right kidney Take 1 capsule by mouth two times a day for 10 days. 20 capsule 0 02/05/2024 02/11/2024 Discontinued Comment on above: Take 1 capsule by mo ut two times a day for 10 days. celecoxib 200 mg oral capsule (9 sources) Nonsteroidal Anti-inflammatory Drug Start: 01-21-2024 End: 05-22-2024 take 1 capsule by mouth once daily Celecoxib 200 mg capsule Discontinued 200 mg PO DAILY January 30, 2024 12:00am May 22, 2024 10:56pm Comment on above: Take 1 capsule by mo cox branson once daily. cephalexin 500 mg oral capsule (7 sources) Cephalosporin Antibacterial Start: 02-15-2016 End: 06-18-2020 take 1 capsule by mouth four times daily Cephalexin (Keflex) 500 MG capsule Discontinued 500 mg PO 4 TIMES DAILY February 15, 2016 12:00am February 15, 2016 1:15pm ciprofloxacin 500 mg oral tablet (2 sources) Quinolone Antimicrobial Start: 07-07-2025 End: 07-14-2025 take 1 tablet by mouth twice daily at mealtime ciprofloxacin HCl (CIPRO) 500 mg tablet Indications: UTI symptoms , History of kidney stones , Left flank pain , Microscopic hematuria Take 1 tablet by mouth two times a day for 7 days. antibiotic, take with food 14 tablet 07/07/2025 07/14/2025 citalopram 20 mg oral tablet (1 source) Serotonin Reuptake Inhibitor Start: 05-04-2015 End: 06-18-2020 take 1 tablet by mouth once daily citalopram (CELEXA) 20 MG tablet Indications: Anxiety Take 1 tablet by mouth daily 30 tablet 0 05/04/2015 06/18/2020 Discontinued clindamycin 300 mg oral capsule (1 source) Lincosamide Antibacterial Start: 07-05-2024 End: 09-28-2024 take 1 capsule by mouth every six hours Clindamycin Hcl (Cleocin Hcl) 300 mg capsule Discontinued 300 mg PO EVERY 6 HOURS 40 July 05, 2024 12:00am September 28, 2024 8:11pm cyclobenzaprine hydrochloride 10 mg oral tablet (9 sources) Muscle Relaxant Start: 01-21-2024 End: 05-22-2024 take 1 tablet by mouth three times daily as needed for muscle spasms Cyclobenzaprine 10 mg tablet Discontinued 10 mg PO THREE TIMES A DAY as needed for MUSCLE SPASMS January 30, 2024 12:00am May 22, 2024 10:56pm Comment on above: Take 1 tablet by troy three times a day as needed for muscle spasm. dicyclomine hydrochloride 10 mg oral capsule (6 sources) Anticholinergic Start: 07-21-2019 End: 07-30-2019 take 2 capsules by mouth three times daily before mealtime Dicyclomine 10 MG capsule Discontinued 20 mg PO THREE TIMES DAILY BEFORE MEALS July 21, 2019 12:00am July 30, 2019 3:14pm Start: 07-21-2019 End: 07-30-2019 take 20 mg by mouth three times daily before mealtime Dicyclomine Discontinued 20 MG PO THREE TIMES DAILY BEFORE MEALS July 21, 2019 12:00am July 30, 2019 3:14pm docusate sodium 100 mg oral capsule (6 sources) Start: 02-05-2022 End: 12-19-2023 take 1 capsule by mouth twice daily Docusate Sodium (Colace) 100 mg capsule Discontinued 100 mg PO TWICE A DAY 60 February 05, 2022 12:00am December 19, 2023 6:17pm DULoxetine 30 mg delayed release oral capsule (20 sources) Serotonin and Norepinephrine Reuptake Inhibitor Start: 01-21-2024 End: 07-03-2024 take 1 capsule by mouth once daily Duloxetine 30 mg capsule,delayed release(DR/EC) Discontinued 30 mg PO DAILY January 30, 2024 12:00am May 22, 2024 10:56pm Comment on above: Take 1 capsule by mo cox branson once daily. escitalopram 10 mg oral tablet (17 sources) Serotonin Reuptake Inhibitor Start: 07-22-2020 End: 06-05-2022 take 1 tablet by mouth once daily escitalopram oxalate (LEXAPRO) 10 mg tablet Take 1 tablet by mouth once daily. 30 tablet 5 07/22/2020 06/05/2022 Discontinued (.All criteria met for discontinuation) Comment on above: Take 1 tablet by troy once daily. estradiol 0.5 mg oral tablet (17 sources) Estrogen Start: 02-17-2021 End: 06-05-2022 take 1 tablet by mouth once daily Estradiol (ESTRACE) 0.5 mg tablet Take 1 tablet by mouth once daily. 30 tablet 0 02/17/2021 06/05/2022 Discontinued (.All criteria met for discontinuation) End: 10-12-2020 take 1 tablet by mouth once daily Estradiol (ESTRACE) 0.5 mg tablet Take 0.5 mg by mouth once daily. 10/12/2020 Discontinued Comment on above: Take 1 tablet by troy th once daily. 30 actuat fluticasone furoate 0.1 mg/actuat / vilanterol 0.025 mg/actuat dry powder inhaler (7 sources) Corticosteroid, beta2-Adrenergic Agonist Start: 9 End: 9 take 1 dose by inhalation once daily Fluticasone Furoate-Vilanterol 1 EACH blister with device Discontinued 1 NMA IH DAILY July 28, 2019 12:00am July 30, 2019 3:14pm Start: 07-21-2019 End: 06-18-2020 take 1 puff(s) by inhalation once daily fluticasone-vilanterol (BREO ELLIPTA) 100-25 MCG/INH AEPB inhaler Inhale 1 puff into the lungs daily 1 each 0 07/21/2019 06/18/2020 Discontinued hydrOXYzine hydrochloride 25 mg oral tablet (17 sources) Antihistamine Start: 07-22-2020 End: 06-05-2022 take 1 tablet by mouth every six hours as needed hydrOXYzine HCl (ATARAX) 25 mg tablet Take 1 tablet by mouth every 6 hours as needed for Itching/Rash. 30 tablet 1 07/22/2020 06/05/2022 Discontinued (.All criteria met for discontinuation) Comment on above: Take 1 tablet by troy th every 6 hours as needed for Itching/Rash. ibuprofen 800 mg oral tablet (20 sources) Nonsteroidal Anti-inflammatory Drug Start: 02-25-2024 End: 05-21-2024 take 1 tablet by mouth every eight hours as needed for pain ibuprofen (MOTRIN) 800 mg tablet Indications: Injury of toe on left foot, subsequent encounter Take 1 tablet by mouth every 8 hours as needed for pain. Take with food. 90 tablet 04/21/2024 05/21/2024 Start: 08-08-2021 End: 08-08-2021 ibuprofen (ADVIL;MOTRIN) tab let 600 mg Start: 06-18-2020 End: 07-30-2021 take 1 tablet by mouth three times daily as needed for pain ibuprofen (ADVIL;MOTRIN) 600 MG tablet Take 1 tablet by mouth 3 times daily as needed for Pain 12 tablet 0 06/18/2020 07/30/2021 Discontinued (LIST CLEANUP) Start: 02-07-2016 End: 06-18-2020 ibuprofen (ADVIL;MOTRIN) 800 MG tablet Comment on above: Take 1 tablet by troy th every 8 hours as needed for pain (take with food). 1 ml medroxyPROGESTERone acetate 150 mg/ml injection (1 source) Progestin End: 2019 medroxyPROGESTERone (DEPO-PROVERA) 150 MG/ML injection Inject 150 mg into the muscle every 3 months 0 06/18/2020 Discontinued methocarbamol 500 mg oral tablet (17 sources) Muscle Relaxant Start: 2019 End: 2021 take 1 tablet by mouth at bedtime as needed methocarbamol (ROBAXIN) 500 mg tablet Indications: Neck pain , Acute left-sided thoracic back pain Take 1 tablet by mouth at bedtime as needed. May make drowsy,, take at bedtime. Muscle relaxer 30 tablet 09/01/2020 06/05/2022 Discontinued (.All criteria met for discontinuation) Comment on above: Take 1 tablet by troy th at bedtime as needed. May make drowsy,, take at bedtime. Muscle relaxer naproxen 500 mg oral tablet (12 sources) Nonsteroidal Anti-inflammatory Drug Start: 2023 End: 2023 take 1 tablet by mouth twice daily as needed Naproxen 500 mg tablet Discontinued 500 mg PO TWICE DAILY NEEDED July 05, 2024 12:00am September 28, 2024 8:11pm Start: 04-16-2022 End: 12-19-2023 take 1 tablet by mouth twice daily as needed for pain Naproxen (Naprosyn) 500 mg tablet Discontinued 500 mg PO TWICE A DAY as needed for pain May 10, 2022 12:00am December 19, 2023 6:18pm omeprazole 40 mg delayed release oral capsule (20 sources) Proton Pump Inhibitor Start: 02-22-2024 End: 03-13-2025 take 1 capsule by mouth once daily before breakfast omeprazole (PRILOSEC) 40 mg capsule Indications: Epigastric pain Take 1 capsule by mouth daily before breakfast. 1/2 hr before meal. 30 capsule 1 11/18/2024 03/13/2025 Discontinued Start: 05-10-2022 End: 01-21-2024 take 1 capsule by mouth once daily Omeprazole 40 mg capsule,delayed release(DR/EC) Discontinued 40 mg PO DAILY May 10, 2022 12:00am December 19, 2023 6:18pm Comment on above: Take 40 mg by mouth once daily. Take 1 capsule by mo ut daily before breakfast. 1/2 hr before meal. ondansetron 4 mg disintegrating oral tablet (20 sources) Serotonin-3 Receptor Antagonist Start: 09-28-20 End: 03-28-20 take 1 tablet by mouth every six hours as needed for nausea and vomiting Ondansetron 4 mg tablet,disintegratin g Discontinued 4 mg PO EVERY 6 HOURS as needed for nausea and vomiting September 28, 2024 1:00am March 28, 2025 10:26am Start: 05-23-2024 End: 09-28-2024 take 1 tablet by mouth every eight hours as needed for nausea Ondansetron 4 mg tablet,disintegrating Discontinued 4 mg PO EVERY 8 HOURS NEEDED as needed for Nausea May 23, 2024 12:00am September 28, 2024 8:11pm Start: 02-22-2024 End: 07-03-2024 take 1 tablet by mouth every six hours as needed for nausea and nausea ondansetron orally disintegrating (ZOFRA N ODT) 4 mg disintegrating tablet Indications: Nausea Take 1 tablet by mouth every 6 hours as needed for nausea/vomiting. 15 tablet 1 02/22/2024 07/03/2024 Discontinued Start: 07-21-2019 End: 07-30-2019 take 1 tablet by mouth every eight hours as needed for nausea Ondansetron 4 MG tablet Discontinued 4 m g PO EVERY 8 HOURS NEEDED as needed for Nausea July 21, 2019 12:00am July 30, 2019 3:14pm End: 01-21-2024 ondansetron (ZOFRAN ODT ORAL ) Take by mouth. 0 01/21/2024 Discontinued ondansetron (ZOF RAN ODT ORAL) Take by mouth. 0 Active Comment on above: Take by mouth. Take 1 tablet by troy th every 6 hours as needed for nausea/vomiting. oxyCODONE hydrochloride 5 mg oral tablet (8 sources) Opioid Agonist Start: 4 End: take 1 tablet by mouth every four hours as needed for pain Oxycodone 5 mg Tablet Discontinued 5 mg PO EVERY 4 HOURS NEEDED as needed for Pain Score 6-10 18 3 February 02, 2024 May 22, 2024 10:56pm Start: 12-28-2016 End: 01-04-2017 take 2 tablets by mouth every twelve hours as needed for pain Oxycodone 5 MG tablet Discontinued 10 mg PO EVERY 12 HOURS NEEDED as needed for Pain December 28, 2016 1:00am January 04, 2017 8:36am Start: 12-28-2016 End: 01-04-2017 take 10 mg by mouth every twelve hours as needed Oxycodone Discontinued 10 MG PO EVERY 12 HOURS NEEDED December 28, 2016 1:00am January 04, 2017 8:36am phenazopyridine hydrochloride 100 mg oral tablet (16 sources) Start: 02-06-2022 End: 06-05-2022 take 1 tablet by mouth every eight hours as needed phenazopyridine (PYRIDIUM) 100 mg tablet Take 1 tablet by mouth three times daily as needed. 30 tablet 0 02/06/2022 06/05/2022 Discontinued (.All criteria met for discontinuation) Comment on above: Take 1 tablet by troy th three times daily as needed. polyethylene glycol 3350 [id number] mg / potassium chloride 2970 mg / sodium bicarbonate 6740 mg / sodium chloride 5860 mg / sodium sulfate 07257 mg powder for oral solution (1 source) Osmotic Laxative Start: 05-29-2022 End: 06-05-2022 peg 3350-Electrolytes (GOLYTELY) 236-22.74-6.74 -5.86 gram suspension Indications: Left sided abdominal pain Refer to printed prep instructions from your provider. 4000 mL 0 05/29/2022 06/05/2022 Discontinued (.All criteria met for discontinuation) Comment on above: Refer to printed pre p instructions from your provider. predniSONE 10 mg oral tablet (2 sources) Start: 09-01-2020 End: 09-10-2020 predniSONE (DELTASONE) 10 mg tablet Indications: Neck pain , Acute left-sided thoracic back pain Take 4 tabs daily for 3 days, then 2 tabs daily for 3 days, then 1 tab daily for 3 days with food. 21 tablet 09/01/2020 09/10/2020 Start: 05-04-2015 End: 06-18-2020 predniSONE (DELTASONE) 10 MG tablet Indications: Cough 3 tabs qam with food 10mg 15 tablet 0 05/04/2015 06/18/2020 Discontinued (LIST CLEANUP) sertraline 25 mg oral tablet (1 source) Serotonin Reuptake Inhibitor End: 06-18-2020 take 1 tablet by mouth once daily sertraline (ZOLOFT) 25 MG tablet Take 25 mg by mouth daily 0 06/18/2020 Discontinued sucralfate 1000 mg oral tablet (20 sources) Aluminum Complex Start: 02-11-2024 End: 07-03-2024 take 1 tablet by mouth four times daily sucralfate (CARAFATE) 1 gram tablet Indications: Epigastric burning sensation Take 1 tablet by mouth four times daily. 120 tablet 1 02/11/2024 07/03/2024 Discontinued Start: 11-28-2016 End: 12-28-2016 take 1 tablet by mouth four times daily Sucralfate 1 GM tablet Discontinued 1 g PO 4 TIMES DAILY 120 November 28, 2016 1:00am December 28, 2016 12:34pm Comment on above: Take 1 tablet by troy th four times daily. sulfamethoxazole 800 mg / trimethoprim 160 mg oral tablet (12 sources) Dihydrofolate Reductase Inhibitor Antibacterial, Sulfonamide Antimicrobial Start: 05-23-2024 End: 09-28-2024 Sulfamethoxazole-Trime thoprim (Bactrim Ds) 800-160 mg tablet Discontinued 1 {tbl} PO TWICE A DAY May 23, 2024 12:00am September 28, 2024 8:11pm Start: 12-19-2023 End: 01-30-2024 Sulfamethoxazole-Trimethopri m (Bactrim Ds) 800-160 mg tablet Discontinued 1 {tbl} PO DAILY 10 December 19, 2023 1:00am January 30, 2024 1:31pm Start: 02-08-2016 End: 06-18-2020 Sulfamethoxazole-Trimethopri m 1 TABLET tablet Discontinued 1 {tbl} PO TWICE A DAY February 08, 2016 12:00am February 15, 2016 1:15pm Start: 02-08-2016 End: 02-15-2016 take 1 tablet by mouth twice daily Sulfamethoxazole-Trimethoprim Discontinu ed 1 TABLET PO TWICE A DAY February 08, 2016 12:00am February 15, 2016 1:15pm sulfaSALAzine 500 mg delayed release oral tablet (2 sources) Aminosalicylate Start: 06-09-2022 End: 01-21-2024 take 1 tablet by mouth three times daily sulfaSALAzine EC (AZULFIDINE EN) 500 mg EC tablet Take 1 tablet by mouth three times daily for 14 days. 42 tablet 0 06/09/2022 01/21/2024 Discontinued Comment on above: Take 1 tablet by troy th three times daily for 14 days. traMADol hydrochloride 50 mg oral tablet (3 sources) Opioid Agonist Start: 04-29-2024 End: 05-06-2024 take 1 tablet by mouth every eight hours as needed for pain traMADol (ULTRAM) 50 mg tablet Indications: Closed fracture of left foot, initial encounter Take 1 tablet by mouth every 8 hours as needed for pain for up to 7 days. 21 tablet 0 04/29/2024 05/06/2024 Discontinued (Course of therapy completed) traZODone hydrochloride 50 mg oral tablet (20 sources) Serotonin Reuptake Inhibitor Start: 07-22-2020 End: 06-05-2022 take 1 tablet by mouth once daily at bedtime traZODone (DESYREL) 50 mg tablet Take 1 tablet by mouth daily at bedtime. 30 tablet 3 07/22/2020 06/05/2022 Discontinued (.All criteria met for discontinuation) Start: 03-30-2017 End: 04-04-2017 take 1 tablet by mouth at bedtime Trazodone 50 MG tablet Discontinued 50 mg PO AT BEDTIME March 30, 2017 12:00am April 04, 2017 7:32am Comment on above: Take 1 tablet by troy th daily at bedtime. valACYclovir 1000 mg oral tablet (3 sources) Herpesvirus Nucleoside Analog DNA Polymerase Inhibitor, Herpes Simplex Virus Nucleoside Analog DNA Polymerase Inhibitor, Herpes Zoster Virus Nucleoside Analog DNA Polymerase Inhibitor Start: 01-21-20 End: 01-28-20 take 1 tablet by mouth twice daily valACYclovir (VALTREX) 1 gram tablet Indications: Pain of left upper extremity , Herpes simplex vulvovaginitis Take 1 tablet by mouth two times a day for 7 days. 14 tablet 01/21/2024 01/28/2024 Comment on above: Take 1 tablet by troy th two times a day for 7 days. Problems Active Problems Problem Classification Problem Date Documented Da te Episodic/Chronic Abdominal pain (20 sources) Generalized abdominal pain; Translations: [Generalized abdominal pain] Onset: 7 11-30-2016 Episodic Alcohol-related disorders (6 sources) Binge drinker; Translations: [Alcohol abuse, uncomplicated] 07-22-2019 Chronic Anxiety disorders (20 sources) Anxiety state; Translations: [Anxiety neurosis ] Onset: 6 02-18-2016 Chronic Asthma (2 sources) Uncomplicated asthma; Translations: [Exacerbation of asthma] Chronic Bacterial infection; unspecified site (1 source) Methicillin resistant Staphylococcus aureus infection; Translations: [Methicillin resistant Staphylococcus aureus infection, unspecified site] 07-03-2024 Episodic Calculus of urinary tract (20 sources) Kidney stone; Translations: [Calculus of kidney] Onset: Episodic Conditions associated with dizziness or vertigo (1 source) Dizziness; Translations: [Dizziness and giddiness] Episodic Endometriosis (6 sources) Endometriosis (clinical); Translations: [Endometriosis, unspecified] 07-21-2019 Chronic Esophageal disorders (20 sources) Gastroesophageal reflux disease; Translations: [Gastro-esophageal reflux disease without esophagitis] 06-30-2010 Chronic Fever of unknown origin (6 sources) Fever; Translations: [Fever, unspecified] 07-04-2021 Episodic Fluid and electrolyte disorders (14 sources) Mild dehydration; Translations: [Dehydration] Episodic Fracture of lower limb (9 sources) Closed fracture of left foot; Translations: [Unspecified fracture of left foot, initial encounter for closed fracture] 04-22-2024 Episodic Fracture of upper limb (1 source) Closed fracture of neck of metacarpal bone; Translations: [Displaced fracture of neck of unspecified metacarpal bone, initial encounter for closed fracture] Episodic Genitourinary symptoms and ill-defined conditions (4 sources) Genuine stress incontinence; Translations: [Stress incontinence (female) (male)] Onset: 5 11-13-2024 Chronic Genitourinary symptoms and ill-defined conditions (16 sources) Kidney finding; Translations: [Unspecified symptoms and signs involving the genitourinary system] Onset: 4 02-05-2024 Episodic Headache; including migraine (1 source) Migraine without aura, not intractable, without status migrainosus; Translations: [Migraine without aura and without status migrainosus, not intractable] Onset: 5 Chronic Headache; including migraine (1 source) Headache; Translations: [Headache] 03-28-2025 Episodic Headache; including migraine (1 source) Headache; including migraine; Translations: [Headache, unspecified] Onset: 5 Infective arthritis and osteomyelitis (except that caused by tuberculosis or sexually transmitted disease) (6 sources) Osteomyelitis of left hand; Translations: [Osteomyelitis, unspecified] 07-21-2019 Chronic Comment on above: M86.9probable osteom yelitis distal phalanx left thumb Intracranial injury (1 source) Concussion injury of body structure; Translations: [Concussion] 04-29-2024 Episodic Malaise and fatigue (4 sources) Malaise and fatigue; Translations: [Other malaise] Onset: 5 07-07-2025 Episodic Miscellaneous mental health disorders (1 source) Psychogenic hyperventilation; 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 Mood disorders (20 sources) Dysthymia; Translations: [Dysthymic disorder] Onset: 9 06-30-2010 Chronic Nausea and vomiting (7 sources) Nausea and vomiting; Translations: [Nausea with vomiting, unspecified] 07-22-2019 Episodic Nutritional deficiencies (2 sources) Vitamin D deficiency; Translations: [Vitamin D deficiency, unspecified] 01-21-2024 Chronic Nutritional deficiencies (1 source) Cobalamin deficiency; Translations: [Deficiency of other specified B group vitamins] 07-03-2024 Episodic Osteoarthritis (20 sources) Arthritis; Translations: [Unspecified osteoarthritis, unspecified site] 06-30-2010 Chronic Other connective tissue disease (3 sources) Pain in left arm; Translations: [Pain in left arm] 01-21-2024 Episodic Other connective tissue disease (1 source) Foot pain; Translations: [Pain in left foot] 05-13-2024 Episodic Other eye disorders (1 source) Anisocoria; Translations: [Anisocoria] 03-28-2025 Chronic Other gastrointestinal disorders (1 source) Intestinal malabsorption; Translations: [Intestinal malabsorption, unspecified] 07-03-2024 Chronic Other gastrointestinal disorders (1 source) H/O: colitis; Translations: [Personal history of other diseases of the digestive system] 02-11-2024 Episodic Other gastrointestinal disorders (1 source) Diarrhea; Translations: [Diarrhea, unspecified] 02-11-2024 Episodic Other gastrointestinal disorders (1 source) Constipation, unspecified; Translations: [Constipation, unspecified constipation type] Onset: Episodic Other injuries and conditions due to external causes (2 sources) Injury of toe of left foot; Translations: [Unspecified injury of left foot, subsequent encounter] 04-21-2024 Episodic Other injuries and conditions due to external causes (2 sources) Injury of finger of left hand; Translations: [Unspecified injury of left wrist, hand and finger(s), subsequent encounter] 10-07-2024 Episodic Other injuries and conditions due to external causes (2 sources) H/O: fracture; Translations: [Personal history of (healed) traumatic fracture] 11-13-2024 Episodic Other injuries and conditions due to external causes (1 source) Contusion; Translations: [Other injury of unspecified body region, initial encounter] 04-29-2024 Episodic Other injuries and conditions due to external causes (1 source) Injury of finger; Translations: [Unspecified injury of unspecified wrist, hand and finger(s), initial encounter] 10-06-2024 Episodic Other liver diseases (1 source) Serum amylase raised; Translations: [Abnormal levels of other serum enzymes] 02-22-2024 Episodic Other lower respiratory disease (3 sources) Rib pain; Translations: [Pleurodynia] 12-02-2024 Episodic Other nervous system disorders (1 source) Unable to walk; Translations: [Difficulty in walking, not elsewhere classified] 05-13-2024 Chronic Other nervous system disorders (2 sources) Paresthesia; Translations: [Paresthesia of skin] 01-21-2024 Episodic Other screening for suspected conditions (not mental disorders or infectious disease) (3 sources) Thyroid hormone tests abnormal; Translations: [Other specified abnormal findings of blood chemistry] 02-05-2024 Episodic Other upper respiratory disease (6 sources) Disorder of upper respiratory system; Translations: [Disease of upper respiratory tract, unspecified] 09-26-2020 Episodic Residual codes; unclassified (1 source) History of syncope; Translations: [Personal history of other specified conditions] Episodic Residual codes; unclassified (3 sources) Flushing; Translations: [Flushing] 02-11-2024 Episodic Residual codes; unclassified (1 source) Flushing; Translations: [Hot flashes] Onset: 4 Episodic Residual codes; unclassified (1 source) Nicotine-filled electronic cigarette user; Translations: [Tobacco use] 07-05-2024 Episodic Residual codes; unclassified (2 sources) Chill; Translations: [Chills (without fever)] 07-07-2025 Episodic Residual codes; unclassified (1 source) Chills (without fever); Translations: [Chills] Onset: 5 Episodic Skin and subcutaneous tissue infections (13 sources) Abscess of axilla; Translations: [Cutaneous abscess of left axilla] 07-10-2016 Episodic Comment on above: L02.512felon abscess wound left thumb at radial aspect Substance-related disorders (6 sources) Smoker; Translations: [Nicotine dependence, unspecified, uncomplicated] 07-21-2019 Chronic Comment on above: F17.200 Substance-related disorders (8 sources) Illicit medication use; Translations: [Other psychoactive substance use, unspecified, uncomplicated] Episodic Superficial injury; contusion (2 sources) Contusion of face; Translations: [Contusion of neck] Episodic Syncope (10 sources) Near syncope; Translations: [Syncope and collapse] 05-18-2022 Episodic Unclassified (1 source) Lumbar pain; Translations: [Lumbar pain] Onset: 5 Urinary tract infections (20 sources) Urinary tract infectious disease; Translations: [Urinary tract infection, site not specified] Onset: 4 Episodic Viral infection (1 source) Herpetic vulvovaginitis; 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] 03-11-2024 Chronic Viral infection (7 sources) Disease caused by 2019-nCoV; Translations: [COVID-19] Episodic Past or Other Problems Problem Classification Problem Date Documented Da te Episodic/Chronic Administrative/social admission (2 sources) Patient encounter status; Translations: [Encounter for issue of other medical certificate] Onset: 03-13-2025 03-13-2025 Episodic Gastritis and duodenitis (20 sources) Acute superficial gastritis; Translations: [Acute gastritis without bleeding] Onset: 12-23-2016 12-23-2016 Episodic Nonspecific chest pain (7 sources) Chest pain; Translations: [Chest pain, unspecified] Onset: 02-12-2024 02-11-2024 Episodic Open wounds of extremities (11 sources) Open wound of thumb with complication; Translations: [Unspecified open wound of left thumb without damage to nail, initial encounter] Onset: 09-30-2024 07-21-2019 Episodic Comment on above: S61.002Aopen dahlia w ound left thumb Other injuries and conditions due to external causes (6 sources) Unspecified injury of lower back, subsequent encounter; Translations: [Other specified aftercare] Onset: 03-13-2025 03-13-2025 Episodic Other injuries and conditions due to external causes (1 source) Unspecified injury of left wrist, hand and finger(s), subsequent encounter; Translations: [Injury of finger of left hand, subsequent encounter] Onset: 10-07-2024 Episodic Other lower respiratory disease (1 source) Pleurodynia; Translations: [Rib pain on right side] Onset: 12-02-2024 Episodic Residual codes; unclassified (20 sources) Tobacco use and exposure - finding; Translations: [Tobacco use] Onset: 02-18-2016 02-18-2016 Episodic Residual codes; unclassified (1 source) Tobacco use; Translations: [Tobacco use] Onset: 02-18-2016 Episodic Spondylosis; intervertebral disc disorders; other back problems (20 sources) Lumbago; Translations: [Pain in left lumbar region of back] Onset: 03-03-2025 Episodic Sprains and strains (20 sources) Strain of thoracic region; Translations: [Strain of muscle and tendon of unspecified wall of thorax, initial encounter] Onset: 07-08-2010 08-19-2020 Episodic Unclassified (3 sources) Injury of back, subsequent encounter 03-13-2025 Results Test Name Value Interpretation Reference Range Facility CNOVon 09-08-2025 CNOV Office Visit (INTMWS ) LANIE LISA ([id number]) 1990 F T Date Time Provider Department 09/08/25 3:20 PM VIC DAVIS INTMWS During your visit today, we recorded the following information about you: Pulse Respiration Blood pressure Weight 91/minute 16/minute 104/82 44.5 kg Vic Davis MD 09/08/2025 4:38 PM Signed Subjective Lanie Lisa is a 35 year old female. HPI Lanie Lisa is a 35-year-old female with a history of nephrolithiasis, presenting with left-sided back pain. Lanie reports a one-month history of left-sided back pain, which she believes is related to a previously identified non-obstructing nephrolithiasis. She describes the pain as aching and similar to previous episodes of nephrolithiasis. The pain is localized to the left flank and radiates superiorly. She suspects that the stone may be moving or that she is about to pass it, as the pain is consistent with her previous experiences of passing nephrolithiasis. She denies any right-sided back pain. A CT scan performed on 08/14/2025 revealed a small, non-obstructing nephrolithiasis on the left side, with no nephrolithiasis on the right side. She was experiencing similar pain at the time of the CT scan. She has not yet been seen by urology for this issue and has not received a call from them regarding an appointment. She is established with Dr. Oliveros, whom she last saw two years ago for nephrolithiasis, pyelonephritis, and an E. coli infection. She has been hospitalized multiple times for nephrolithiasis, with her last hospitalization occurring two years ago. She has not seen the hospital physician as an outpatient. Lanie has been managing her pain with oxycodone-acetaminophen, prescribed by Dr. Wilcox, her primary care physician. She received a prescription for five pills on 08/12/2025 and a previous prescription from [facility]. She reports that the pain is the same as when she saw [facility]. She has also been experiencing sciatica pain, which she describes as different from her current back pain. The sciatica pain occurs when she puts pressure on one side of her foot, causing pressure on the top of her buttock. She denies any issues with constipation or diarrhea. Lanie has a history of a hysterectomy and multiple laparoscopic surgeries for endometriosis. She inquires whether scar tissue from these surgeries could be contributing to her current pain. PAST MEDICAL HISTORY Diagnosis Date Acid reflux Arthritis LEFT WRIST Dysthymic disorder 03/2009 Depression (non-psychotic) Endometriosis Current Outpatient Medications Medication Sig oxyCODONE-acetaminophen (PERCOCET) 5-325 mg tablet Take 1 tablet by mouth every 8 hours as needed for pain for up to 7 days. No current facility-administered medications for this visit. ALLERGIES Allergen Reactions Hydrocodone-Acetami* GI Upset nausea, no vomiting FAMILY HISTORY Problem Relation Age of Onset Cancer Mother OVARIAN CANCER Osteoporosis Mother other (Other) Mother Crohn's disease Thyroid Father Heart Maternal Grandmother Diabetes Paternal Grandmother Diabetes Paternal Grandfather Cancer Maternal Aunt OVARIAN CANCER SOCIAL HISTORY[1] Review of Systems Objective BP 104/82 Pulse 91 Resp 16 Wt 44.5 kg (98 lb 1.7 oz) LMP 01/09/2017 SpO2 97% BMI 17.38 kg/m? Last 5 Encounter Wt Readings: Date: Wt: 09/08/2025 44.5 kg (98 lb 1.7 oz) 08/12/2025 43.5 kg (95 lb 12.8 oz) 07/07/2025 42.2 kg (93 lb 0.6 oz) 03/31/2025 43.2 kg (95 lb 3.2 oz) 03/13/2025 43.1 kg (95 lb) No waist measurement recorded Estimated body mass index is 17.38 kg/m? as calculated from the following: Height as of 09/30/24: 160 cm (5' 3). Weight as of this encounter: 44.5 kg (98 lb 1.7 oz). Last 5 Encounter BP Readings: Date: BP: 09/08/2025 104/82 08/12/2025 103/72 07/07/2025 98/58 03/31/2025 102/70 03/13/2025 102/69 Physical Exam Constitutional: Appearance: Normal appearance. HENT: Head: Normocephalic. Eyes: Conjunctiva/sclera: Conjunctivae normal. Cardiovascular: Rate and Rhythm: Normal rate and regular rhythm. Heart sounds: Normal heart sounds. Pulmonary: Effort: Pulmonary effort is normal. Breath sounds: Normal breath sounds. Abdominal: General: There is no distension. Tenderness: There is no abdominal tenderness. There is left CVA tenderness. There is no right CVA tenderness. Musculoskeletal: General: Tenderness (paravertebral muscles; tight muscles noted) present. Right lower leg: No edema. Left lower leg: No edema. Skin: General: Skin is warm and dry. Neurological: General: No focal deficit present. Mental Status: She is alert and oriented to person, place, and time. Psychiatric: Mood and Affect: Mood normal. Behavior: Behavior normal. Thought Content: Thought content normal. Judgment: Judgmen (more content not included)... Normal [facility] 08-18-2025 [facility] Telephone (INTMWS) LANIE LISA ([id number]) 1990 F T Date Time Provider Department 08/18/25 MICHELLE WILCOX INTMWS During your visit today, we recorded the following information about you: Alessia Huffman RN 08/18/2025 4:03 PM Signed Patient calling and asking about CT Scan results. Please review and advise, KWABENA Hoskins Chitra, MD 08/18/2025 5:01 PM Signed Right kidney has no stones Left kidney has very small stone but it not obstructing so should not be causing pain. No mass or other lesions seen Regards, Michelle Wilcox MD Allergies As of Date: 08/18/2025 Noted Allergy Reaction HYDROCODONE-ACETAMINOPHEN 10/07/2024 8 - GI Upset Comments: nausea, no vomiting Date Reviewed: 08/12/2025 Reviewed by: Roosevelt Raygoza MA - Fully Assessed Reason for Visit: Results - Ct [3560] Prescriptions as of 08/19/2025 - phenazopyridine (PYRIDIUM) 100 mg tablet Take 1 tablet by mouth three times a day as needed for up to 15 days. - oxyCODONE-acetaminophen (PERCOCET) 5-325 mg tablet Take 1 tablet by mouth every 8 hours as needed for pain for up to 7 days. - flavoxATE (URISPAS) 100 mg tablet Take 1 tablet by mouth three times a day as needed. - tamsulosin (FLOMAX) 0.4 mg Take 1 capsule by mouth daily at bedtime. - rizatriptan (MAXALT) 5 mg tablet Take 1 tablet by mouth as needed. May repeat dose after 2 hours if needed. Maximum daily dose is 30 mg per day. - pantoprazole DR (PROTONIX) 20 mg tablet Take 1 tablet by mouth once daily for 14 days. Meds Comments as of 07/23/2019: Pharm - [facility] Retail Problem List As Of Date 08/18/2025 Noted Resolved Acid Reflux [K21.9] Dysthymic Disorder [F34.1] 03/12/2009 Arthritis [M19.90] Acute thoracic myofascial strain [S29.019A] 07/08/2010 Anxiety neurosis [F41.1] 02/18/2016 Tobacco use [Z72.0] 02/18/2016 Generalized abdominal pain [R10.84] 11/30/2016 Acute superficial gastritis without hemorrhage *12/23/2016 Encounter Status:Closed by ROOSEVELT RAYGOZA on 08/19/25 Normal [facility] CT FLANK WO IVCONon 08-14-20 CT FLANK WO IVCON * * *Final Report* * * DATE OF EXAM: Aug 14 2025 8:27AM [facility] 0529 - CT FLANK WO IVCON / PROCEDURE REASON: Dysuria * * * * Physician Interpretation * * * * EXAMINATION: CT ABDOMEN AND PELVIS WITHOUT IV CONTRAST (Renal stone protocol) CLINICAL HISTORY: Unspecified flank pain. Hematuria.. Nephrolithiasis TECHNIQUE: Non-contrast imaging of the abdomen and pelvis was performed through the urinary tract. Study performed without intravenous or oral contrast to evaluate for urinary tract calculus. MQ: [id number] Contrast: IV contrast: None Oral contrast: None CT Radiation dose: Integrated dose-length product (DLP) for this visit = 91 mGy*cm. CT Dose Reduction Employed: Automated exposure control(AEC) and iterative recon COMPARISON: 02/25/2024. RESULT: Limitations: Unenhanced imaging is limited for the evaluation of some renal and other intra-abdominal and pelvic pathology. Urinary Tract: Right kidney and ureter: No calculus. No hydronephrosis. No finding to suggest cyst or mass in the unenhanced kidney. Left kidney and ureter: Unchanged 2 to 3 mm lower pole nonobstructing stone. No hydronephrosis. No finding to suggest cyst or mass in the unenhanced kidney. Bladder: No calculus. Abdomen and Pelvis: Liver: Unremarkable. Biliary: No biliary dilatation. Gallbladder is unremarkable Spleen: No splenomegaly. Pancreas: Unremarkable. Adrenals: Normal. GI Tract: No bowel dilation. Significant stool throughout the colon Lymph Nodes: No lymphadenopathy. Mesentery/peritoneum: No ascites. Vasculature: No abdominal aortic or iliac artery aneurysm. Pelvis: No mass or ascites. Bones and Soft Tissues: No acute abnormality. Lower thorax: Minimal atelectasis of the left base. Localizer images: No additional findings. IMPRESSION: Punctate left nephrolithiasis. No hydronephrosis. Significant stool throughout the colon Automotive Upholsterer: [facility] Transcribe Date/Time: Aug 14 2025 2:56P Dictated by : OKSANA TEJADA MD This examination was interpreted and the report reviewed and electronically signed by: OKSANA TEJADA MD on Aug 14 2025 3:03PM EST [id number] Normal [facility] CNOVon 08-12-2025 CNOV Office Visit (INTMWS ) LANIE LISA ([id number]) 1990 F CHT Date Time Provider Department 08/12/25 9:40 AM MICHELLE WILCOX INTWS During your visit today, we recorded the following information about you: Temperature Pulse Respiration Blood pressure 97.9 degrees 85/minute 16/minute 103/72 Weight 43.5 kg Michelle Wilcox MD 08/12/2025 9:59 AM Signed We discussed your symptoms of back pain, burning with urination, and a history of kidney stones: - Your urine test did not show signs of a urinary tract infection (UTI). However, there was a trace amount of blood in your urine, which could suggest kidney stones. - I recommend a CT scan with IV contrast (Stone Protocol) to evaluate for kidney stones. This can be done in [place]. Please schedule this as soon as possible. - I prescribed the following medications to help manage your symptoms: - Urispas: Take three times a day for five days to help relax your urinary system and alleviate discomfort. - Pyridium: Take three times a day for five days to soothe your urinary tract and reduce burning sensations. - Oxycodone: I prescribed 5 pills to help manage severe pain if needed. Use only as directed. - You may also take [id number] acetaminophen (Tylenol) as needed for additional pain relief. We discussed follow-up care for recurrent kidney stones: - I recommend seeing a oil sales and service rep or urologist for further evaluation and management of recurrent kidney stones. Please let us know if you need assistance with a referral. Please monitor your symptoms closely. If your pain worsens, you develop a fever, or you are unable to urinate, contact our office or go to the emergency room immediately. Michelle Wilcox MD 08/12/2025 10:18 AM Signed Reason for Visit Follow up JANELL Dela Cruz is a 35-year-old female presenting with acute onset of back pain and dysuria. Lanie reports a recent onset of back pain and dysuria, which she suspects may be related to kidney stones. She recalls passing a kidney stone last Sunday, describing significant bloating and back pain prior to the event. She experienced relief after passing the stone but continues to feel soreness. Yesterday, she noted severe back pain on the opposite side from where she previously passed the stone, describing it as miserable and similar to her prior kidney stone pain. She also reports dysuria, describing a burning sensation during urination. She denies any history of UTIs. She has been managing her son's recent scaphoid fracture, which has added to her stress. She had to take time off work yesterday and today to care for him. She denies any other symptoms or medical conditions. SOCIAL HISTORY[1] Past medical history, appointments, medications, allergies reviewed. Pertinent Lab/Diagnostic Studies are reviewed and discussed today Current Outpatient Medications: rizatriptan (MAXALT) 5 mg tablet phenazopyridine (PYRIDIUM) 100 mg tablet oxyCODONE-acetaminophen (PERCOCET) 5-325 mg tablet flavoxATE (URISPAS) 100 mg tablet tamsulosin (FLOMAX) 0.[address] (PROTONIX) 20 mg tablet Health Maintenance Hepatitis B Vaccine(1 of 3 - 19+ 3-dose series) Cervical Cancer Screening HPV Vaccine(1 - 3-dose SCDM series)@ Review Of Systems Gastrointestinal: (+) abdominal bloating Genitourinary: (+) dysuria, (+) urinary hesitancy, (+) flank pain Musculoskeletal: (+) back pain Physical Exam BP 103/72 Pulse 85 Temp 36.6 ?C (97.9 ?F) (Oral) Resp 16 Wt 43.5 kg (95 lb 12.8 oz) LMP 01/09/2017 BMI 16.97 kg/m? GENERAL: NAD, alert and oriented SKIN: unremarkable, no rash or skin lesions. HEAD: normocephalic EYES: PERRLA, EOMI, conjunctiva clear EARS: external ears normal, canals clear, TM's normal. NOSE/SINUSES: Nares normal. Septum midline. OROPHARYNX: lips, mucosa, and tongue normal, good dentition. No oral lesions noted. NECK: Supple, no lymphadenopathy, normal thyroid, no carotid bruits. LUNGS: Clear to auscultation bilaterally, no wheezes/rhonchi/rales. HEART: Regular rate and rhythm, no murmurs. No ectopy. EXTREMITIES: Normal, No deformities, No skin discoloration, No edema. NEURO: Awake, alert and oriented x3, cranial nerves II-XII grossly intact, normal gait, no involuntary motions Labs: - Urinalysis (dipstick): - Blood: trace - pH: 7 - Nitrite: negative - Leukocyte esterase: negative - Protein: negative Assessment and Plan 1. Recurrent kidney stones (N20.0) 2. Dysuria (R30.0) Recent urinalysis shows trace hematuria, consistent with recurrent nephrolithiasis; no evidence of UTI. - Order CT KUB with IV contrast, stone protocol. - Start Pyridium TID for 5 days for dysuria. - Start Urispas; 3 refills provided. - Start Bentyl. - Prescribe oxycodone 5 tablets for severe pain. - Refer to nephrology or urology for recurrent nephrolithi (more content not included)... [facility] LANIE LISA ([id number]) 1990 F [facility] Date Time Provider Department 07/14/25 MICHELLE WILCOX INTVICKY During your visit today, we recorded the following information about you: Lois Villalta 07/14/2025 5:51 PM Signed Prescription Refill Information The patient has been identified by name and date of : Yes Caregiver verified no other encounters exist for this prescription request: Yes Caregiver confirmed with patient/requestor that no other refills are due, in the near future, with this provider at this time: Yes The last office visit in the department: 07/07/2025 Does the patient have a future office visit with this provider/department: No Requested Prescriptions Pending Prescriptions Disp Refills oxyCODONE-acetaminophen (PERCOCET) 5-325 mg tablet 21 tablet 0 Sig: Take 1 tablet by mouth every 8 hours as needed for pain for up to 7 days. Lois Villalta July 14, 2025 5:50 PM Divina Mejias APRN.CEMENT DESPATCH OPERATOR 07/15/2025 10:12 AM Signed Patient needs to get CT scan completed. If she is still having severe pain even after treatment of UTI she should be seen prior to further narcotics being prescribed. Thank you Divina Mejias APRN.CNP Kitty Hardiny 07/15/2025 11:11 AM Signed Patient calling to check status of refill. Informed patient of below information. Patient has an appointment for CT scan tomorrow (). Juanis Maloney RN 07/15/2025 4:35 PM Signed Called and spoke with pt. In talking with pt and seeing her urine results that shows pt has a UTI discussed her antibiotics with her. Pt states she picked up the antibiotics on Sunday the when she saw Vaughn Fady but then a few days later was feeling better so she stopped taking them. Restarted them yesterday when the burning and stinging with urination came back. She thinks she was off of them for about 4 days. Pt failed to show for her first CT scan that was scheduled last Sunday. She is scheduled to get it tomorrow at 5 pm. Pt states she restarted the antibiotic yesterday, took 2 and 1 so far today and thinks she maybe has five or six pills left. Pt uses [facility] if further antibiotics needed. Pt aware that if her pain gets severe enough that she needs Percocet, she needs to go back to the ER for possible kidney stone. Otherwise pt given strict instructions when prescribed an antibiotic to take the full prescription as this is what happens when you stop a few days in. Pt verbalizes understanding. Divina Mejias APRN.CNP 07/15/2025 6:49 PM Signed Noted Divina Mejias APRN.CNP Allergies As of Date: 07/14/2025 Noted Allergy Reaction HYDROCODONE-ACETAMINOPHEN 10/07/2024 8 - GI Upset Comments: nausea, no vomiting Date Reviewed: 07/07/2025 Reviewed by: Blanca Vaughn LPN - Fully Assessed Reason for Visit: Refill Request [94] Urinary Problem [252] Visit Diagnoses:UTI symptoms [R39.9] History of kidney stones [Z87.442] Left flank pain [R10.9] Microscopic hematuria [R31.29] Malaise and fatigue [R53.81, R53.83] Chills [R68.83] Prescriptions as of 07/15/2025 - tamsulosin (FLOMAX) 0.4 mg Take 1 capsule by mouth daily at bedtime. - meloxicam (MOBIC) 15 mg tablet Take 1 tablet by mouth once daily. as needed for pain. Take with food. - rizatriptan (MAXALT) 5 mg tablet Take 1 tablet by mouth as needed. May repeat dose after 2 hours if needed. Maximum daily dose is 30 mg per day. - pantoprazole DR (PROTONIX) 20 mg tablet Take 1 tablet by mouth once daily for 14 days. Meds Comments as of 07/23/2019: Pharm - [facility] Retail Problem List As Of Date 07/14/2025 Noted Resolved Acid Reflux [K21.9] Dysthymic Disorder [F34.1] 03/12/2009 Arthritis [M19.90] Acute thoracic myofascial strain [S29.019A] 07/08/2010 Anxiety neurosis [F41.1] 02/18/2016 Tobacco use [Z72.0] 02/18/2016 Generalized abdominal pain [R10.84] 11/30/2016 Acute superficial gastritis without hemorrhage *12/23/2016 Encounter Status:Closed by DIVINA MEJIAS on 07/15/25 Normal [facility] Bacteria Culton 5 Bacteria identified Cx Nom (U) ORGANISM ID: 1 >=100,000 CFU/ml Escherichia coli ORGANISM ID: 1 (ESCHERICHIA COLI) --------- ANTIBIOTIC INTERPRETATION ORLY STATUS REFERENCE RANGE --------- Ampicillin S 4 F Susceptible <=8 , Intermediate >8 , Resistant >16 Cefazolin S <=4 F Susceptible 0-16 , Intermediate <0 or >16 , Resistant >16 For uncomplicated urinary tract infections, cefazolin results can be used to predict susceptibility or resistance to cephalexin. Ceftriaxone S <=1 F Susceptible <=1 , Intermediate >1 , Resistant >=4 Cefepime S <=1 F Susceptible <=2 , Susceptible-Dose Dependent >2 , Resistant >=16 Ertapenem S <=0.5 F Susceptible <=0.5 , Intermediate >.5 , Resistant >1 Meropenem S <=0.25 F Susceptible <=1 , Intermediate >1 , Resistant >2 Ampicillin/Sulbact S <=2 F Susceptible <=8 , Intermediate >8 , Resistant >16 Piperacillin/Tazobac S <=4 F Susceptible <16 , Susceptible-Dose Dependent >=16 , Resistant >=32 Gentamicin S <=1 F Susceptible <=2 , Intermediate >2 , Resistant >=8 Tobramycin S <=1 F Susceptible <4 , Intermediate >=4 , Resistant >=8 Trimeth sulfameth S <=20 F Susceptible <=40 , Resistant >40 Ciprofloxacin S <=0.25 F Susceptible <0.5 , Intermediate >=.5 , Resistant >=1 Nitrofurantoin S <=16 F Susceptible <=32 , Intermediate >32 , Resistant >64 Abnormal [facility] Comment on above: Performed By: #### 6 30-4 ####[facility] [id number] [address] [place] CNOVon 07-07-2025 CNOV Office Visit (INTMWS ) LANIE LISA ([id number]) 1990 F CHT Date Time Provider Department 07/07/25 10:00 AM VAUGHN SHRESTHA INTMWS During your visit today, we recorded the following information about you: Temperature Pulse Respiration Blood pressure 98 degrees 64/minute 16/minute 98/58 Weight 42.2 kg Vaughn Shrestha APRN.RESIDENTIAL CHILD CARE COUNSELOR 07/07/2025 10:43 AM Addendum Subjective HPI Lanie Lisa is a 35 year old female.PMH significnt for ACTIVE PROBLEM LIST Acid Reflux Dysthymic Disorder Arthritis Acute Thoracic Myofascial Strain Anxiety Neurosis Tobacco Use Generalized Abdominal Pain Acute Superficial Gastritis Without Hemorrhage The patient is a 35-year-old female with history of pyelonephritis and nephrolithiasis, presenting for evaluation of acute left flank pain and dysuria. Left Flank Pain: - Onset 2 days ago. - Described as stabbing, achy pain, rated 7/10 in severity. - Localized to the left flank, similar to previous nephrolithiasis episodes. - Pain is colicky, and is not alleviated by massage or OTC treatments. - Lanie has taken oxycodone for pain management that she had at home - Without report of right flank pain. Dysuria: - Onset 2 days ago. - Described as severe burning sensation during micturition. - Denies visible hematuria. Urinary Frequency: - Onset 2 days ago. - Lanie reports increased urinary frequency and occasional urinary incontinence. - Denies nausea or emesis. Nephrolithiasis: - History of nephrolithiasis, with the last episode occurring last year. - Lanie has passed stones spontaneously in the past. - Followed by urologist Dr. Tierney Alfonso; last seen 2 years ago. - No history of lithotripsy or stent placement. Nephritis: - Reports history of nephritis, with three hospitalizations at [facility] for severe infections. Hysterectomy: - Lanie underwent total hysterectomy; denies possibility of . Dietary Intake: - Decreased appetite over the past 2 days. - Lanie is consuming cranberry juice and taking cranberry pills. ROS Constitutional: (+) fatigue, (+) chills, (+) body aches, (+) decreased appetite, (-) fever Gastrointestinal: (+) left abdominal pain Genitourinary: (+) left flank pain, (+) urinary frequency, (+) urinary incontinence, (+) dysuria, (-) hematuria Objective BP 98/58 Pulse 64 Temp 36.7 ?C (98 ?F) Resp 16 Wt 42.2 kg (93 lb 0.6 oz) LMP 01/09/2017 SpO2 99% BMI 16.48 kg/m? Physical Exam Vitals and nursing note reviewed. Constitutional: General: She is not in acute distress. Appearance: She is well-developed. She is not diaphoretic. HENT: Head: Normocephalic and atraumatic. Eyes: Conjunctiva/sclera: Conjunctivae normal. Cardiovascular: Rate and Rhythm: Normal rate and regular rhythm. Heart sounds: Normal heart sounds. Pulmonary: Effort: Pulmonary effort is normal. Breath sounds: Normal breath sounds. Abdominal: General: Abdomen is flat. Bowel sounds are normal. Palpations: Abdomen is soft. Tenderness: There is left CVA tenderness. Comments: Lower left-sided abdominal pain, left sided colicky flank pain Skin: General: Skin is warm and dry. Neurological: General: No focal deficit present. Mental Status: She is alert and oriented to person, place, and time. Motor: No abnormal muscle tone. ALLERGIES Allergen Reactions Hydrocodone-Acetami* GI Upset nausea, no vomiting Current Outpatient Medications Medication Sig rizatriptan (MAXALT) 5 mg tablet Take 1 tablet by mouth as needed. May repeat dose after 2 hours if needed. Maximum daily dose is 30 mg per day. tamsulosin (FLOMAX) 0.4 mg Take 1 capsule by mouth daily at bedtime. meloxicam (MOBIC) 15 mg tablet Take 1 tablet by mouth once daily. as needed for pain. Take with food. ciprofloxacin HCl (CIPRO) 500 mg tablet Take 1 tablet by mouth two times a day for 7 days. antibiotic, take with food oxyCODONE-acetaminophen (PERCOCET) 5-325 mg tablet Take 1 tablet by mouth every 8 hours as needed for pain for up to [address] (PROTONIX) 20 mg tablet Take 1 tablet by mouth once daily for 14 days. (Patient not taking: Reported on 07/07/2025) No current facility-administered medications for this visit. PAST MEDICAL HISTORY Diagnosis Date Acid reflux Arthritis LEFT WRIST Dysthymic disorder 03/2009 Depression (non-psychotic) Endometriosis reports that she has quit smoking. Her smoking use included cigarettes. She has never used smokeless tobacco. She reports current alcohol use. She reports that she does not use drugs. Assessment and Plan 1. Left flank pain (R10.9) 2. History of kidney stones (Z87.442) 3. Renal colic on left side (N23) - Acute left-sided renal colic with history of nephrolithiasis; pain rated 7/10, similar to prior episodes. - Start tamsulosin (Flomax) to facilitate (more content not included)... Normal [facility] UA DIP, URINE (POC)on 2024 BILIRUBIN UA (POCT) Negative Negative [facility] CLARITY UA (POCT) [facility] COLOR UA (POCT) Yellow [facility] GLUCOSE UA (POCT) Negative Negative mg/dL [facility] Hemoglobin Ql (U) Trace-intact Abnormal Negative [facility] Interpretation and review of laboratory results Abnormal [facility] KETONE UA (POCT) Negative Negative mg/dL [facility] LEUKOCYTES UA (POCT) Small Abnormal [facility] NITRITE UA (POCT) Positive Abnormal Negative [facility] PH UA (POCT) 5.5 4.5 - 8.0 [facility] Protein Ql (U) Negative Negative mg/dL [facility] SPECIFIC GRAVITY UA (POCT) 1.020 1.005 - 1.030 [facility] UROBILINOGEN UA (POCT) 0.2 Sonia l E.U./dL [facility] Location:[address], [id number] [place] [address] [facility] CNOVon 03-31-2025 CNOV Office Visit (INTMWS ) LANIE LISA ([id number]) 1990 F T Date Time Provider Department 03/31/25 1:40 PM MICHELLE WILCOX INTMWS During your visit today, we recorded the following information about you: Pulse Blood pressure Weight 84/minute 102/70 43.2 kg Michelle Wilcox MD 03/31/2025 2:01 PM Signed We discussed your recent ER visit and symptoms: - Your CT scan and EKG results from the ER were normal, which is reassuring. The ER ruled out serious conditions like a stroke. - You mentioned experiencing dilated pupils, nausea, headaches, and chest discomfort. These symptoms may have been related to taking Benadryl, which can cause pupil dilation and other side effects. Please avoid taking Benadryl unless necessary. - You also reported migraines that have been occurring for about a month, with symptoms including light sensitivity, nausea, and throbbing pain. These migraines are distinct from the headaches you experience due to vision strain. We discussed your migraines: - I prescribed Maxalt (Rizatriptan) for your migraines. Take 1 or 2 tablets as needed when you experience a migraine. This has been sent to your pharmacy. - Avoid potential migraine triggers, such as artificial sweeteners like sucralose or aspartame, which may be present in some Gatorade or other foods and drinks. - Stress may also be contributing to your migraines. Consider stress management techniques, such as relaxation exercises or mindfulness. We discussed your back pain: - You have ongoing back pain that has been affecting your ability to work and exercise. X-rays showed no significant bone injury or disc prolapse, but there may be some misalignment contributing to your symptoms. - I recommend starting physical therapy to help strengthen your core and improve your back pain. Please let us know if you would like us to send a referral. - Avoid heavy lifting and strenuous activities, including going to the gym, for at least the next month. When you resume exercise, start slowly and focus on gentle stretches and strengthening exercises. We discussed pain management: - Continue using [id number] pain relievers like Tylenol or ibuprofen as needed for back pain. I do not recommend refilling stronger pain medications, as they are not addressing the root cause of your pain. Next steps: - Begin taking Maxalt as needed for migraines and monitor your symptoms. Let us know if the medication is not effective or if your migraines worsen. - Avoid heavy lifting and follow up with physical therapy if you choose to proceed with it. - If your symptoms persist or worsen, please contact our office for further evaluation. Michelle Wilcox MD 03/31/2025 2:41 PM Signed Reason for Visit eBll Dela Cruz is a 34-year-old female presenting for evaluation of anisocoria and recurrent migraines. Lanie reports a recent episode of anisocoria, which prompted an ED visit. She notes that her pupils were unequal in size, which was confirmed by a nurse who advised her to seek emergency care. During the ED visit, a CT scan of the head and an EKG were performed, both of which were reported as normal. The anisocoria began to resolve while she was at the hospital. She recalls taking Benadryl the night before the episode to aid sleep and wonders if this could be related. Lanie also reports a history of migraines that began approximately 1 month ago, occurring a couple of times per week. These migraines are characterized by severe, throbbing pain, photophobia, and nausea. She denies phonophobia or aura. The migraines are often present upon waking and can be triggered by stress. She manages the pain with Tylenol, taking up to 4 tablets to achieve relief. She distinguishes these migraines from other headaches, which she attributes to not wearing her glasses or contacts and are described as more behind her eyes. These headaches resolve once she wears her glasses. Additionally, Lanie reports intermittent sharp pains on one side of her head, which she describes as shooting from the back to the front and then fading away. She suspects these pains may be related to what she believes are pinched nerves in her neck. She also mentions recent nausea, cephalalgia, and mild chest pains on the day of the anisocoria episode. Lanie has a history of back pain for which she was prescribed steroids but did not take them, doubting their efficacy. She continues to experience back pain, which is exacerbated by heavy lifting at work. She has not been able to go to the gym due to her back pain, which has been a source of frustration and depression for her. She denies caffeine or artificial sugar consumption. Social History Tobacco Use Smoking status: Former Types: Cigarettes Smokeless tobacco: Never Tobacco comments: approx 2 cig per day (more content not included)... Normal [facility] 12 Lead EKGon 03-28-2025 12 Lead EKG [facility] Cardiovascular Services [address] [place] [address] 12 Lead EKG 03/28/25 1038 MR#: [id number] Acct: [id number] Name: LANIE LISA Rep #: [id number] : 1990 34 From: Fabien Chavez MD Attending Dr: Status: DEP ER Ordering Dr: Marcin Lozano DO Date: 03/28/25 Location: ED Sex: F C Admitted: Test Reason : HEADACHE Blood Pressure : */* mmHG Vent. Rate : 57 BPM Atrial Rate : 57 BPM P-R Int : 122 ms QRS Dur : 78 ms QT Int : 404 ms P-R-T Axes : 35 74 59 degrees QTcB Int : 393 ms Sinus bradycardia Otherwise normal ECG Confirmed by ZENA MAURO, FABIEN ([id number]), restaurant expeditor JORGE PARK ([id number]) on 03/30/2025 9:15:42 AM Referred By: Confirmed By: FABIEN CHAVEZ MD 03/30/25 0915 Date Fabien Chavez MD CC: Dr. Michelle Wilcox MD; Dr. Marcin Lozano DO Signed Normal [facility] Brain/Head without Contrasto n 03-28-2025 Brain/Head without Contrast [facility] Imaging Services [address] [place], [place] [address] Brain/Head without Contrast MR#: [id number] Acct: [id number] Name: LANIE LISA Rep #: [id number] : 1990 F 34 From: Ti Lozano MD PCP: Dr. Michelle Wilcox MD Status: REG ER Study: Brain/Head without Contrast Date of Exam: 03/12 06/05 Exam# [id number] Ordering Dr: Marcin Lozano DO EXAM: CT Head Without Intravenous Contrast CLINICAL INDICATION: HEADACHE TECHNIQUE: Axial computed tomography images of the head/brain without intravenous contrast. This CT exam was performed using one or more of the following dose reduction techniques: automated exposure control, adjustment of the mA and/or kV according to patient size, and/or use of iterative reconstruction technique. COMPARISON: No relevant prior studies available. FINDINGS: BRAIN AND EXTRA-AXIAL SPACES: No acute intracranial hemorrhage, midline shift or mass effect. If symptoms persist, further evaluation with MRI is recommended. No significant white matter disease. BONES/JOINTS: Unremarkable. No acute fracture. SOFT TISSUES: Unremarkable. SINUSES: Unremarkable as visualized. No acute sinusitis. MASTOID AIR CELLS: Unremarkable as visualized. No mastoid effusion. CT/Brain/Head without Contrast IMPRESSION: No acute intracranial hemorrhage, midline shift or mass effect. If symptoms persist, further evaluation with MRI is recommended. Reading Location: [facility] CC: Dr. Michelle Wilcox MD; Dr. Marcin Lozano DO Automotive Upholsterer: Signed [facility] 03-28-2025 [facility] Telephone (INTWiki-PRWS) LANIE LISA ([id number]) 1990 F T Date Time Provider Department 03/28/25 MICHELLE WILCOX During your visit today, we recorded the following information about you: Meredith Dale LPN 03/28/2025 9:17 AM Signed Patient calling said she has not been feeling good the past few days, she has vomiting, still nauseated. Patient said her pupils are both different sizes one is very large and she did not know why. She did not hit her head or any injury, she has not taken any new medications. Advised since she is vomiting to go to ER for evaluation, not sure if when she vomited may have effected her pupils. Patient said she would go to the ER. Allergies As of Date: 03/28/2025 Noted Allergy Reaction HYDROCODONE-ACETAMINOPHEN 10/07/2024 8 - GI Upset Comments: nausea, no vomiting Date Reviewed: 03/13/2025 Reviewed by: Blanca Vaughn LPN - Fully Assessed Reason for Visit: Patient Update [1234] Prescriptions as of 03/31/2025 - rizatriptan (MAXALT) 5 mg tablet Take 1 tablet by mouth as needed. May repeat dose after 2 hours if needed. Maximum daily dose is 30 mg per day. - oxyCODONE-acetaminophen (PERCOCET) 5-325 mg tablet Take 1 tablet by mouth every 8 hours as needed for pain for up to 2 days. - pantoprazole DR (PROTONIX) 20 mg tablet Take 1 tablet by mouth once daily for 14 days. Meds Comments as of 07/23/2019: Pharm - [facility] Retail Problem List As Of Date 03/28/2025 Noted Resolved Acid Reflux [K21.9] Dysthymic Disorder [F34.1] 03/12/2009 Arthritis [M19.90] Acute thoracic myofascial strain [S29.019A] 07/08/2010 Anxiety neurosis [F41.1] 02/18/2016 Tobacco use [Z72.0] 02/18/2016 Generalized abdominal pain [R10.84] 11/30/2016 Acute superficial gastritis without hemorrhage *12/23/2016 Encounter Status:Closed by MEREDITH DALE on 03/31/25 Normal [facility] Emergency Department Summary on 03-28-2025 Emergency Department Summary [facility] Medical Records Department [address] [place] [id number] Emergency Department Summary 03/28/25 MR#: [id number] Acct: [id number] Name: LANIE LISA Rep #: [id number] : 1990 34 From: Marcin Young PCP: Dr. Michelle Wilcox MD Status:REG ER Location: ED HPI History of Present Illness Chief Complaint: Headache Informant: patient Narrative Narrative: Presents for evaluation concerns for unequal pupils noted on the left side. She states she been having intermittent left-sided headache for years, no head trauma. Last 4 months increasing migraine symptoms. Mother had strokes, had Adamson's palsy. Patient also reports intermittent chest discomfort that lasts a second. No cough. She vapes. She does marijuana. Denies vomiting or diarrhea. Note she states she had her eye exam 3 days ago at [facility]. She had recommended dilation of her eyes however she declined this. She was given trial contacts the last 2 weeks she did remove them but amount in the mornings.She reports she has told her PCP about her headaches however no images have been performed. [facility] Medical History Pyelonephritis Smoker Wears contact lenses Wears glasses Depression Anxiety History of steroid therapy Arthritis Kidney stones Back pain Migraine headache Injury of head and neck Gastric reflux Shortness of breath on exertion History of edema History of irregular heartbeat Renal calculus Substance abuse Gastritis Asthma Home Medications ???Medication ???Instructions ???Recorded ???Last Taken ???Type NK 03/28/25 Unknown History Allergy/AdvReac Type Severity Reaction Status Date / Time No Known Allergies Allergy Verified 03/28/25 10:11 Family History Mother Asthma Arthritis Lung cancer Osteoporosis Thyroid disorder Surgical History Hx of colonoscopy History of esophagogastroduodenoscopy (EGD) Hx of dilation and curettage Hx of thumb surgery Hx of laparoscopy History of tonsillectomy and adenoidectomy History of appendectomy History of hysterectomy Social History household members: children Smoking Status: Current every day smoker tobacco type: e-cigarettes alcohol intake: current substance use type: does not use additional social history: no aspirin use no ibuprofen use ROS ROS ED Constitutional Constitutional ED: Denies chills, fever(s) or sweats Eyes Eyes: Reports blurry vision ENT ENT ED: Denies sore throat Cardiovascular Cardiovascular: Denies chest pain, leg edema, palpitations or racing heartbeat Respiratory/Chest Respiratory/Chest: Denies cough, dyspnea or dyspnea on exertion Gastrointestinal Gastrointestinal: Denies abdominal pain, diarrhea, nausea or vomiting Genitourinary Genitourinary ED: Denies dysuria, hematuria or urinary frequency Musculoskeletal Musculoskeletal: Denies back pain, extremity pain or neck pain Integumentary Denies rash or wounds Neurologic Neurologic: Reports headache(s); Denies paresthesias or weakness EXAM Physical Exam Const Vital Signs: 03/28/25 10:08 03/28/25 11:08 Temperature 98.1 F Temperature Source Oral Pulse Rate 87 67 Respiratory Rate 16 13 Blood Pressure 115/85 H 119/70 Blood Pressure Mean 95 86 Pulse Ox 98 100 Oxygen Delivery Method Room Air Room Air Positive well nourished and well developed General Appearance ED: well developed and NAD HEENT Reports moist mucous membranes normocephalic and atraumatic Eyes Eyes Narrative: Slight anisocoria of the pupils more dilation left compared to right. Neck full ROM and no meningeal signs Chest Wall Chest: Negative for tenderness Resp normal respiratory effort and normal air movement Effort and Inspection: symmetric chest movement; Negative for respiratory distress Cardio regular rate, regular rhythm and no murmurs Peripheral Pulses: pulses 2+ throughout GI normal to inspection, nondistended, normoactive bowel sounds and non-tender Palpation: Negative for guarding or rebound tenderness present Extremity normal to inspection General Extremety ED: Negative for edema or tenderness General Extremity: Negative for edema Neuro oriented x3, CN's II-XII intact bilaterally and no sensory deficits noted Sensorium / Orientation: awake and alert Skin no rashes or lesions noted and no wounds MDM MDM MDM Narrative Medical decision making narrative: Interventions / MDM: Differential diagnosis: Nonspecific headache, palpitations Diagnosis considered but do not suspect: Intracranial mass/hemorrhage however CT negative. My EKG interpretation: Sinus rhythm 57, (more content not included)... Normal [facility] LANIE LISA ([id number]) 1990 F CHT Date Time Provider Department 03/20/25 MICHELLE WILCOX INTMWS During your visit today, we recorded the following information about you: Jayla Sidhu 03/20/2025 9:14 AM Signed Patient called for Oxy refill and said she can't take 2 wks off work and has been lifting over 10 lbs low back pain continues patient has follow up apt 03/31/2025 Please advise Divina Mejias APRN.CEMENT DESPATCH OPERATOR 03/20/2025 2:29 PM Signed Xray is negative for fracture. Not appropriate to refill narcotic without being seen again. I could send in a muscle relaxer to try Thank you Divina Mejias, ADRIEN.Melissa Slaughter, KWABENA 03/20/2025 3:45 PM Signed Called patient and no answer. Patients voicemail was full. Will need to call back later. KWABENA Draper Krystle, RN 03/20/2025 3:53 PM Signed Patient returns call and provider message reviewed. Declines muscle relaxer as she already has an order for one. Offered to schedule sooner appt than 03/31/2025 and patient declines that as well. Jose Claros RN Allergies As of Date: 03/20/2025 Noted Allergy Reaction HYDROCODONE-ACETAMINOPHEN 10/07/2024 8 - GI Upset Comments: nausea, no vomiting Date Reviewed: 03/13/2025 Reviewed by: Blanca Vaughn LPN - Fully Assessed Reason for Visit: Patient Update [1234] Cmt: Low back pain continues Visit Diagnoses:Acute bilateral low back pain with bilateral sciatica [M54.42, M54.41] Injury of back, subsequent encounter [S39.92XD] Prescriptions as of 03/20/2025 - pantoprazole DR (PROTONIX) 20 mg tablet Take 1 tablet by mouth once daily for 14 days. Meds Comments as of 07/23/2019: Pharm - [facility] Retail Problem List As Of Date 03/20/2025 Noted Resolved Acid Reflux [K21.9] Dysthymic Disorder [F34.1] 03/12/2009 Arthritis [M19.90] Acute thoracic myofascial strain [S29.019A] 07/08/2010 Anxiety neurosis [F41.1] 02/18/2016 Tobacco use [Z72.0] 02/18/2016 Generalized abdominal pain [R10.84] 11/30/2016 Acute superficial gastritis without hemorrhage *12/23/2016 Encounter Status:Closed by JOSE CLAROS on 03/20/25 Normal [facility] CNOVon 03-13-2025 CNOV Office Visit (INTMWS ) SLOANLANIE DUBOSE ([id number]) 1990 F CHT Date Time Provider Department 03/13/25 3:20 PM MICHELLE WILCOX During your visit today, we recorded the following information about you: Pulse Respiration Blood pressure Weight 76/minute 16/minute 102/69 43.1 kg Michelle Wilcox MD 03/13/2025 5:03 PM Signed Reason for Visit HPI Lanie is a 34-year-old female with a history of scoliosis presenting with acute lower back pain and sciatica following a gym injury 3 weeks ago. Lanie reports a 3-week history of acute lower back pain that began after performing squats on a Benton machine at the gym. She felt a pop in her back while ascending from a squat and has experienced significant pain since, describing it as really bad. 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 The pain is localized to the lower back, extending from the lumbar region to the sacrum, and is described as achy and sore. It is exacerbated by prolonged sitting, standing, and certain movements, and is associated with shooting pain down the legs, alternating between legs daily. She denies numbness or tingling in the legs. Lanie has a history of chronic back pain and scoliosis, with previous episodes of lower back pain and hip popping. She suspects a pinched sciatic nerve due to the shooting pain in the buttocks and legs, which has worsened since the gym injury. She has not had a recent x-ray but was advised to get one by a previous clinician, which she could not complete due to work commitments. She has been taking Advil for pain relief and previously took leftover oxycodone from a finger injury, which provided relief. She has not tried muscle relaxants or prednisone. She also has a history of acid reflux, for which she takes Pepto-Bismol as needed. Social History Tobacco Use Smoking status: Former Types: Cigarettes Smokeless tobacco: Never Tobacco comments: approx 2 cig per day Vaping Use Vaping status: current everyday user Substances: Nicotine, Flavoring Devices: RefBABADUble tank Substance Use Topics Alcohol use: Yes Comment: OCCASIONALLY,BUT NOT WHILE Drug use: No Past medical history, appointments, medications, allergies reviewed. Pertinent Lab/Diagnostic Studies are reviewed and discussed today Current Outpatient Medications: methylPREDNISolone (MEDROL, EUN,) 4 mg Dose-Pack oxyCODONE-acetaminophen (PERCOCET) 5-[address] (PROTONIX) 20 mg tablet Health Maintenance Hepatitis B Vaccine(1 of + 3-dose series) Cervical Cancer Screening Covid-19 Vaccine( season)@ Review Of Systems Gastrointestinal: (+) acid reflux Musculoskeletal: (+) lower back pain, (+) bilateral hip popping, (+) buttock pain, (+) radiating leg pain Neurological: (-) numbness or tingling Physical Exam BP 102/69 Pulse 76 Resp 16 Wt 43.1 kg (95 lb) LMP 01/09/2017 BMI 16.83 kg/m? GENERAL: NAD, alert and oriented. SKIN: Unremarkable, no rash or skin lesions. HEAD: Normocephalic. EYES: PERRLA, EOMI, conjunctiva clear. EARS: External ears normal, canals clear, TM's normal. LUNGS: Clear to auscultation bilaterally, no wheezes/rhonchi/rales. HEART: Regular rate and rhythm, no murmurs. No ectopy. EXTREMITIES: Normal, no deformities, no skin discoloration, no edema. NEURO: Awake, alert and oriented x3, cranial nerves II-XII grossly intact, normal gait, no involuntary motions. BACK: Limited range of motion with forward flexion to 75 degrees; pain noted in sacroiliac joint, paraspinal areas, and L5-S1 region. Assessment and Plan 1. Acute bilateral low back pain with bilateral sciatica (M54.42) Injury of back, subsequent encounter (S39.92XD) Acute onset of low back pain with bilateral sciatica following a gym incident involving squats on a Benton machine approximately three weeks ago. Pain is localized to the lower back, particularly in the sacroiliac joint and L5-S1 region, with radiation to the buttocks and alternating legs. No numbness or tingling reported. Physical exam reveals tenderness in the lower back and limited range of motion. Previous history of scoliosis noted. - Ordered lumbar spine X-ray to assess for any structural abnormalities. - Prescribed a Medrol Dosepak to reduce inflammation. - Prescribed Percocet 10 mg, 10 tablets for acute pain management. - Advised patient to avoid heavy lifting and strenuous activities. - Provided work restrictions: no lifting, pushing, or pulling more than 10 pounds. - Issued a medical certificate for work restrictions from 03/14. - Follow-up appointment scheduled to review X-ray results and reassess pain management. 2. Encounter for issue of other medical certificate (Z02.79) Medical certificate required for work restrictions due to acut (more content not included)... [facility] [facility] XR LUMBAR 3V AP/LAT/L5-S1on 03-13-2025 XR LUMBAR 3V AP/LAT/L5-S1 * * *Final Report* * * DATE OF EXAM: Mar 13 2025 4:23PM WOX [id number] - XR LUMBAR 3V AP/LAT/L5-S1 / PROCEDURE REASON: multiple diagnoses * * * * Physician Interpretation * * * * EXAM TITLE: XR LUMBAR 3V AP/LAT/L5-S1 EXAM DATE/TIME: 03/13/2025 4:23 PM COMPARISON: None. CLINICAL INDICATION/HISTORY: Low back pain. TECHNIQUE: AP, lateral and cone down lateral views of the lumbar spine are presented. FINDINGS: There are five cei-umj-jzidozt lumbar vertebrae. No fracture or subluxations are noted. The disc spaces are well preserved. There is no significant osteophyte formation. IMPRESSION: Negative lumbar spine X-ray. Automotive Upholsterer: LYNDSAY Transcribe Date/Time: Mar 13 2025 4:46P Dictated by : GLENNA FRANCOIS MD This examination was interpreted and the report reviewed and electronically signed by: GLENNA FRANCOIS MD on Mar 13 2025 4:47PM EST [id number] Normal [facility] XR Lumbar spine 3 Viewson IMPRESSION: Negative lumbar spine X-ray. Automotive Upholsterer: LYNDSAY Transcribe Date/Time: Mar 13 2025 4:46P Dictated by : GLENNA FRANCOIS MD This examination was interpreted and the report reviewed and electronically signed by: GLENNA FRANCOIS MD on Mar 13 2025 4:47PM EST DIVISION OF RADIOLOGY * * *Final Report* * * DATE OF EXAM: Mar 13 2025 4:23PM WOX 5228 - XR LUMBAR 3V AP/LAT/L5-S1 / PROCEDURE REASON: multiple diagnoses * * * * Physician Interpretation * * * * EXAM TITLE: XR LUMBAR 3V AP/LAT/L5-S1 EXAM DATE/TIME: 03/13/2025 4:23 PM COMPARISON: None. CLINICAL INDICATION/HISTORY: Low back pain. TECHNIQUE: AP, lateral and cone down lateral views of the lumbar spine are presented. FINDINGS: There are five nwk-lca-wyqvtfh lumbar vertebrae. No fracture or subluxations are noted. The disc spaces are well preserved. There is no significant osteophyte formation. DIVISION OF RADIOLOGY Provider, Deja Glynn - 03/13/2025 * * *Final Report* * * DATE OF EXAM: Mar 13 2025 4:23PM WOX 5228 - XR LUMBAR 3V AP/LAT/L5-S1 / PROCEDURE REASON: multiple diagnoses * * * * Physician Interpretation * * * * EXAM TITLE: XR LUMBAR 3V AP/LAT/L5-S1 EXAM DATE/TIME: 03/13/2025 4:23 PM COMPARISON: None. CLINICAL INDICATION/HISTORY: Low back pain. TECHNIQUE: AP, lateral and cone down lateral views of the lumbar spine are presented. FINDINGS: There are five seb-kdp-juhuujg lumbar vertebrae. No fracture or subluxations are noted. The disc spaces are well preserved. There is no significant osteophyte formation. IMPRESSION IMPRESSION: Negative lumbar spine X-ray. Automotive Upholsterer: PSCB Transcribe Date/Time: Mar 13 2025 4:46P Dictated by : GLENNA FRANCOIS MD This examination was interpreted and the report reviewed and electronically signed by: GLENNA FRANCOIS MD on Mar 13 2025 4:47PM EST [facility] Radiology Study observation (narrative) [facility] XR Lumbar spine 3 ViewsOrder ed By: [facility] Provider on 03-13-2025 [facility] XR SACRUM/COCCYX 3V AP/LATon 03-13-2025 XR SACRUM/COCCYX 3V AP/LAT * * *Final Report* * * DATE OF EXAM: Mar 13 2025 4:23PM WOX 5246 - XR SACRUM/COCCYX 3V AP/LAT / PROCEDURE REASON: multiple diagnoses * * * * Physician Interpretation * * * * Sacrum and coccyx HISTORY: 34 years old Clinical information: Acute bilateral low back pain with bilateral sciatica Injury of back, subsequent encounter lifting weights 3 weeks ago and was in a squat and heard a pop, pain all across lower lumbar and in left si joint hx of sciatica in left leg TECHNIQUE: Images: XR SACRUM/COCCYX 3V AP/LAT Comparison: None. RESULT: Findings: No fracture or bony destruction is evident. Sacroiliac joints are unremarkable. AP views of the hip joints are unremarkable. IMPRESSION: No acute bony finding. Automotive Upholsterer: PSCB Transcribe Date/Time: Mar 19 2025 3:35P Dictated by : TI DURAN MD This examination was interpreted and the report reviewed and electronically signed by: TI DURAN MD on Mar 19 2025 3:36PM EST [id number] Normal [facility] CNOVon 03-03-2025 [facility] LANIE LISA ([id number]) 1990 F T Date Time Provider Department 03/03/25 11:40 AM ROBERT BREWERWS During your visit today, we recorded the following information about you: Pulse Respiration Blood pressure Weight 96/minute 16/minute 110/78 45.5 kg Robert Brewer PA-C 03/03/2025 12:08 PM Signed Continue alternating ice and heat on your back--apply each for 20 minutes at a time. Avoid falling asleep with a heating pad on to prevent emery. Keep up with gentle stretching and movement (such as pulling your knees up when lying down or slight leg crosses) to help relieve stiffness without overdoing it. Be mindful of your back pain; if you notice progressive numbness, weakness in your legs, or any new difficulty with bowel or bladder control, seek immediate care. A urine sample was ordered to check for signs of infection. Contact us if you experience any burning with urination or an increase in urinary frequency. A referral to a multi line claims adjuster has been made for a pelvic exam regarding your bladder symptoms and possible prolapse. Have lumbar x-ray done. You will be contacted with the results. If your back pain does not improve within 5-7 days or worsens, please follow up so we can discuss starting physical therapy. Robert Brewer PA-C 03/03/2025 12:33 PM Signed Recording using [employer] software for draft documentation of the visit was discussed with the patient/authorized sales representative wire rope; all questions welcomed and answered. 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 - Lisman a weird pop followed by excruciating pain in the back. - Pain is localized to the lower back, more comfortable standing than sitting. - Aggravated by sitting, bending, and certain movements. - Denies previous back injuries; has a history of scoliosis. - Has been using Advil, topical pain relief (similar to Icy Hot), and heat pads with minimal relief. - Took two leftover pain pills from a previous finger injury to manage pain at work. - Pain radiates down the leg, more pronounced on the left side. - Denies numbness in the seat region or loss of bowel control. Asking for refill of percocet. Urinary Incontinence: - Experiencing urinary incontinence, particularly with coughing, sneezing, and jumping. - Reports urgency and dribbling before reaching the bathroom. - Has not seen a BALANCE ENGINEER since a hysterectomy at age 28 or 29. - Denies dysuria or increased frequency. Current Outpatient Medications on File Prior to Visit Medication Sig omeprazole (PRILOSEC) 40 mg capsule Take 1 capsule by mouth daily before breakfast. 1/2 hr before meal. (Patient not taking: Reported on 03/03/2025) No current facility-administered medications on file prior to visit. PAST MEDICAL HISTORY Diagnosis Date Acid reflux Arthritis LEFT WRIST Dysthymic disorder 03/2009 Depression (non-psychotic) Endometriosis Allergies: Hydrocodone-Acetami* GI Upset Comment:nausea, no vomiting Genitourinary: (+) urinary incontinence, (+) urinary urgency, (+) dyspareunia, (-) dysuria, (-) urinary frequency Musculoskeletal: (+) low back pain, (+) radiating leg pain Neurological: (-) numbness BP 110/78 Pulse 96 Resp 16 Wt 45.5 kg (100 lb 3.2 oz) LMP 01/09/2017 BMI 17.75 kg/m? GENERAL: NAD, alert and oriented. EXTREMITIES: Normal, no deformities, no skin discoloration, no edema. NEURO: Awake, alert and oriented x3, cranial nerves II-XII grossly intact, normal gait, no involuntary motions. BACK: Tenderness noted in the lumbar region, particularly on the left side. + left SLR. Pain elicited with forward bending and left leg elevation. no CVA TTP 1. Lumbar pain (M54.50) 2. Sciatica, left side (M54.32) - Acute onset of lumbar pain following improper squat technique at the gym, accompanied by a pop sensation. Pain is exacerbated by sitting and bending, with some relief when standing. No previous back injuries reported, but patient has a history of scoliosis. - Physical exam reveals tenderness in the lumbar region and pain radiating down the left leg. No numbness or loss of bowel or bladder control reported. - Ordered lumbar spine X-ray to rule out any bony abnormalities. - Advised alternating ice and heat application for 20 minutes each, cautioning against prolonged use of a heating pad to prevent emery. - Recommended ibuprofen 600 mg every 6-8 hours with food for anti-inflammatory effect, and advised alternating with acetaminophen. - Discussed potential use of Flexeril, but patient declined. - Encouraged gentle stretching exercises to maintain mobility and prevent stiffness. - If no improvement in 5-7 days, will initiate physical therapy. If symptom (more content not included)... Normal [facility] Betty 12-05-2024 MARTINA Telephone (GERIWR) LANIE LISA ([id number]) 1990 F CHT Date Time Provider Department 12/05/24 MICHELLE WILCOX During your visit today, we recorded the following information about you: Michelle Wilcox MD 12/05/2024 10:25 AM Signed Please let patient know that her rib xr is normal Would like to know if she has see the chiropractor? I will not be able to refill pain meds after the current dose Please update if she is better after chiropractor assessment and manipulation. Regards, Chloe Gill MD, LPN 12/05/2024 10:51 AM Signed Called and updated patient, patient to see Chiropractor next week. Chloe Ramsey LPN December 05, 2024 10:51 AM Allergies As of Date: 12/05/2024 Noted Allergy Reaction HYDROCODONE-ACETAMINOPHEN 10/07/2024 8 - GI Upset Comments: nausea, no vomiting Date Reviewed: 12/02/2024 Reviewed by: Cezar Swift MA - Fully Assessed Prescriptions as of 12/08/2024 - meloxicam (MOBIC) 15 mg tablet Take 1 tablet by mouth once daily. for pain. Take with food. - omeprazole (PRILOSEC) 40 mg capsule Take 1 capsule by mouth daily before breakfast. 1/2 hr before meal. Meds Comments as of 07/23/2019: Pharm - [facility] Retail Problem List As Of Date 12/05/2024 Noted Resolved Acid Reflux [K21.9] Dysthymic Disorder [F34.1] 03/12/2009 Arthritis [M19.90] Acute thoracic myofascial strain [S29.019A] 07/08/2010 Anxiety neurosis [F41.1] 02/18/2016 Tobacco use [Z72.0] 02/18/2016 Generalized abdominal pain [R10.84] 11/30/2016 Acute superficial gastritis without hemorrhage *12/23/2016 Encounter Status:Closed by CHLOE RAMSEY on 12/05/24 [facility] CNOVon 12-02-2024 CNOV Office Visit ([facility] ) LANIE LISA ([id number]) 1990 F CHT Date Time Provider Department 12/02/24 11:00 AM MICHELLE WILCOX INTMWS During your visit today, we recorded the following information about you: Pulse Respiration Blood pressure Weight 80/minute 16/minute 98/70 47.2 kg Michelle Wilcox MD 12/02/2024 11:32 AM Signed Reason for Visit Patient presents with: Follow Up Lanie Lisa is a 34 year old female who presents here today for Above Complaints. Health Maintenance Hepatitis B Vaccine(1 of - 19+ 3-dose series) Cervical Cancer Screening Influenza Vaccine(1) Covid-19 Vaccine( season) HPI Has been having pain in the chest, with palpable elevation of the ribs in the right anterior likely 4/5 ribs. She reached out to high her boyfriend to give him a hug when she went to bed when she heard something pop and every since she has felt an elevation in the ribs and in the mentioned area and there is pain all the time. Right now it is hurting her. And she is uncomfortable. She is able to go to to work but cannot lift anything. Pain is 8/10, she cannot lift anything and is not able to do any work at home after coming back from work. No problem-specific Assessment AND Plan notes found for this encounter. PAST MEDICAL HISTORY Diagnosis Date Acid reflux Arthritis LEFT WRIST Dysthymic disorder 03/2009 Depression (non-psychotic) Endometriosis PAST SURGICAL HISTORY Procedure Laterality Date COLONOSCOPY FLX DX W/COLLJ SPEC WHEN PFRMD 03/01/16 Colonoscopy with mac DILATION AND CURETTAGE DXAND/THER NONOBSTETRIC Dilation AND curettageX2 EGD TRANSORAL BIOPSY SINGLE/MULTIPLE 12/12/2016 gastritis EXT HYSTERECTOMY,W/PARTIAL VAGINECTO Dr.Seals ELIAS LAP APPENDICOSTOMY 08/04/2019 LAPS ABD PRTMANDOMENTUM DX W/WO SPEC BR/WA SPX 12/23/2015 Laparoscopy OOPHORECTOMY PARTIAL OR TOTAL Right 08/04/2019 PAST SURGICAL HISTORY OF oophorectomy/ salpingectomy left PAST SURGICAL HISTORY OF 02/2016 debridment left thumb staph. TONSILLECTOMY PRIMARY/SECONDARY Tonsillectomy US KIDNEY 07/05/2015 normal FAMILY HISTORY Problem Relation Age of Onset Cancer Mother OVARIAN CANCER Osteoporosis Mother other (Other) Mother Crohn's disease Thyroid Father Heart Maternal Grandmother Diabetes Paternal Grandmother Diabetes Paternal Grandfather Cancer Maternal Aunt OVARIAN CANCER Social History Tobacco Use Smoking status: Former Types: Cigarettes Smokeless tobacco: Never Tobacco comments: approx 2 cig per day Vaping Use Vaping status: current everyday user Substances: Nicotine, Flavoring Devices: RefBABADUble tank Substance Use Topics Alcohol use: Yes Comment: OCCASIONALLY,BUT NOT WHILE Drug use: No Past medical history, appointments, medications, allergies reviewed. Pertinent Lab/Diagnostic Studies are reviewed and discussed today Current Outpatient Medications: meloxicam (MOBIC) 15 mg tablet omeprazole (PRILOSEC) 40 mg capsule Review of Systems CONSTITUTIONAL: No fevers, chills night sweats, unintended weight loss CARDIOVASCULAR: No chest pain, dyspnea, palpitations, orthopnea, PND, ankle edema. PULM: No dyspnea, unexplained cough. GI: No dysphagia/odynophagia, problematic reflux, constipation, diarrhea, changes in stool habits, hematochezia, melena. : No new urinary complaints, including dysuria, gross hematuria or pyuria. NEURO: No new balance problems, peripheral weakness/paresthesias or numbness of concern. Physical Exam BP 98/70 Pulse 80 Resp 16 Wt 47.2 kg (104 lb) LMP 01/09/2017 BMI 18.42 kg/m? General appearance: Well appearing, alert, in no acute distress, well nourished. Skin: Skin color, texture, turgor normal, no suspicious rashes or lesions Head: Normocephalic, no masses, lesions, tenderness or abnormalities Eyes: Anicteric sclera. Pupils are equally round and reactive to light. Extraocular movements are intact. Lungs: Lungs clear to auscultation. No wheezing, rhonchi, rales Heart: RRR without murmur, gallop, or rubs. Chest: she has palpable protrusion of the ribs at the costovertebral angle at multiple ribs levels. ASSESSMENT/PLAN: 1. Rib pain on right side - ICD9: 786.50, ICD10: R07.81. - XR RIBS BILATERAL/CHEST 4V - she likely has rib displacement, and will need to see the chiropractor. - wants pain meds till then so she can work. Michelle Wilcox MD Allergies As of Date: 12/02/2024 Noted Allergy Reaction HYDROCODONE-ACETAMINOPHEN 10/07/2024 8 - GI Upset Comments: nausea, no vomiting Date Reviewed: 12/02/2024 Reviewed by: Cezar Swift MA - Fully Assessed Reason for Visit: Follow Up [171] Primary Visit Diagnosis:Rib pain on right side [R07.81] Order(s):XR RIBS BILATERAL/CHEST 4V [[id number]] Order #: [id number] FUTURE oxyCODONE-acetaminophen (PERCOCET) 5-325 mg tabletTake (more content not included)... Normal [facility] XR RIBS 4V GAYATHRI+UPPER/LOWER C [place] 12-02-2024 XR RIBS 4V GAYATHRI+UPPER/LOWER CHEST * * *Final Report* * * DATE OF EXAM: Dec 02 2024 12:11PM WOX 5242 - XR RIBS 4V GAYATHRI+UPPER/LOWER CHEST / PROCEDURE REASON: Rib pain on right side * * * * Physician Interpretation * * * * RIGHT RIB RADIOGRAPHS HISTORY: Rib pain on right side TECHNOLOGIST PROVIDED HISTORY (if applicable): Painful lump in upper frontal right ribs x3 weeks, patient was reaching upward in bed and felt a pop and shortly after a painful lump appeared in upper right ribs. TECHNIQUE: XR RIBS 4V GAYATHRI+UPPER/LOWER CHEST COMPARISON: Chest radiographs 11/13/2024 RESULT: There is no visualized rib fracture or focal bony abnormality. Cardiomediastinal silhouette and lung mckeon appear within normal limits. IMPRESSION: 1. Negative radiographs of the right ribs. Automotive Upholsterer: PSCB Transcribe Date/Time: Dec 04 2024 4:58P Dictated by : EDILBERTO BIANCHI MD This examination was interpreted and the report reviewed and electronically signed by: EDILBERTO BIANCHI MD on Dec 04 2024 5:17PM EST [id number] Normal [facility] CNOVon 11-13-2024 CNOV Office Visit ([facility] ) LANIE LISA ([id number]) 1990 F T Date Time Provider Department 11/13/24 1:40 PM VAUGHN SHRESTHA IN[facility] During your visit today, we recorded the following information about you: Pulse Respiration Blood pressure Weight 72/minute 16/minute 103/67 49.1 kg Vaughn Shrestha, OUTBOARD TECHNICIAN.RESIDENTIAL CHILD CARE COUNSELOR 11/13/2024 4:46 PM Signed Subjective HPI Lanie Lisa is a 34 year old female.PMH significnt for ACTIVE PROBLEM LIST Acid Reflux Dysthymic Disorder Arthritis Acute Thoracic Myofascial Strain Anxiety Neurosis Tobacco Use Generalized Abdominal Pain Acute Superficial Gastritis Without Hemorrhage Presents today regarding chest wall discomfort. Notes that he has right-sided chest wall pain near the sternum, 3rd rib. Feels a lump here. Reports pain with movement and deep breathing. She reports pain occurred when she reached out about a week ago. States this has occurred 3-4 times over the year with minor movements. Feels like something pops in her chest. Then feels a knot in the area. Reports she had rib fractures when she fell at the age 13.. She did not see anyone when this occurred, thought it would pass on its own. Requesting pain medication. Review of Systems Constitutional: Negative. Respiratory: Negative. Cardiovascular: Negative. Musculoskeletal: Positive for arthralgias. Objective BP 103/67 Pulse 72 Resp 16 Wt 49.1 kg (108 lb 3.9 oz) LMP 01/09/2017 BMI 19.17 kg/m? Physical Exam Vitals and nursing note reviewed. Constitutional: General: She is not in acute distress. Appearance: She is well-developed. She is not diaphoretic. HENT: Head: Normocephalic and atraumatic. Cardiovascular: Rate and Rhythm: Normal rate. Pulmonary: Effort: Pulmonary effort is normal. Chest: Comments: Tender to palpation, there may be some mild prominence of the third rib on the right side near sturnum, no crepitus no shortness of breath, no decrease in lung sounds Musculoskeletal: Comments: Skin: General: Skin is warm and dry. Neurological: Mental Status: She is alert. Sensory: No sensory deficit. Motor: No abnormal muscle tone. ALLERGIES Allergen Reactions Hydrocodone-Acetami* GI Upset nausea, no vomiting Current Outpatient Medications Medication Sig keTORolac (TORADOL) 10 mg tablet Take 1 tablet by mouth every 6 hours as needed for pain for up to 5 days. oxyCODONE-acetaminophen (PERCOCET) 5-325 mg tablet Take 1 tablet by mouth every 8 hours as needed for pain for up to 3 days. omeprazole (PRILOSEC) 40 mg capsule Take 1 capsule by mouth daily before breakfast. 1/2 hr before meal. (Patient not taking: Reported on 11/13/2024) No current facility-administered medications for this visit. PAST MEDICAL HISTORY Diagnosis Date Acid reflux Arthritis LEFT WRIST Dysthymic disorder 03/2009 Depression (non-psychotic) Endometriosis reports that she has quit smoking. Her smoking use included cigarettes. She has never used smokeless tobacco. She reports current alcohol use. She reports that she does not use drugs. Assessment and Plan ASSESSMENT/PLAN: 1. Chest wall discomfort - ICD9: 786.52, ICD10: R07.89 (primary diagnosis) 2. History of fractured rib - ICD9: V15.51, ICD10: Z87.81 avoid painful activities. gentle ROM. Toradol x 5 days - XR CHEST 2V FRONTAL/LAT - KETOROLAC 60 MG/2 ML INTRAMUSCULAR SOLUTION - KETOROLAC 10 MG TABLET - OXYCODONE-ACETAMINOPHEN 5 MG-325 MG TABLET for breakthrough pain 3. Stress incontinence of urine - ICD9: [id number], ICD10: N39.3 4. History of kidney stones - ICD9: V13.01, ICD10: Z87.442 5. History of hysterectomy - ICD9: V88.01, ICD10: Z90.710 She notes history of hysterectomy and now with stress incontinence. Has seen gynecology/urology Dr. Tierney Alfonso in the past. Recommend recheck with her. - CONSULT TO FEMALE UROLOGY/URO GYNECOLOGY Vaughn Shrestha APRN.RESIDENTIAL CHILD CARE COUNSELOR Medical Decision Making: Problems: Low: Acute, uncomplicated illness or injury Moderate: 1+ chronic illnesses with change Data: Unique test(s) ordered: 1 Risk: Moderate: Drug management Medical Decision Making Level: 4 - Moderate Allergies As of Date: 11/13/2024 Noted Allergy Reaction HYDROCODONE-ACETAMINOPHEN 10/07/2024 8 - GI Upset Comments: nausea, no vomiting Date Reviewed: 11/13/2024 Reviewed by: Vaughn Shrestha APRN.RESIDENTIAL CHILD CARE COUNSELOR - Fully Assessed Reason for Visit: Musculoskeletal Problem [69] Cmt: muscle is chest pulled. Large knot Primary Visit Diagnosis:Chest wall discomfort [R07.89] Other Visit Diagnoses:History of fractured rib [Z87.81] Stress incontinence of urine [N39.3] History of kidney stones [Z87.442] History of hysterectomy [Z90.710] Order(s):XR CHEST 2V FRONTAL/LAT [[id number]] Order #: [id number] FUTURE [] keTORolac 60 mg injection (Toradol)Disp: Rfl: keTORolac (TORADOL) 10 mg tabletTake 1 tablet by mouth every 6 hours as n (more content not included)... Normal [facility] XR CHEST 2V FRONTAL/LATon XR CHEST 2V FRONTAL/LAT * * *Final Report* * * DATE OF EXAM: Nov 13 2024 2:33PM WOX 5291 - XR CHEST 2V FRONTAL/LAT / PROCEDURE REASON: Chest wall discomfort * * * * Physician Interpretation * * * * EXAMINATION: CHEST RADIOGRAPH (2 VIEW FRONTAL and LATERAL) CLINICAL HISTORY: Chest wall discomfort MQ: XC2_6 EXAM DATE/TIME: 11/13/2024 2:33 PM COMPARISON: 02/11/2024 RESULT: Lines, tubes, and devices: None. Lungs and pleura: No consolidation. No lung mass. No pleural effusion. No pneumothorax. Cardiomediastinal silhouette: Normal cardiomediastinal silhouette. Bones and soft tissues: Unremarkable. IMPRESSION: No acute radiographic abnormality. Automotive Upholsterer: PSCB Transcribe Date/Time: Nov 13 2024 2:34P Dictated by : DOMENICA STORM MD This examination was interpreted and the report reviewed and electronically signed by: DOMEINCA STORM MD on Nov 13 2024 2:35PM EST [id number] Normal [facility] XR Chest PA and Lateralon IMPRESSION: No acute radiographic abnormality. Automotive Upholsterer: LYNDSAY Transcribe Date/Time: Nov 13 2024 2:34P Dictated by : DOMENICA STORM MD This examination was interpreted and the report reviewed and electronically signed by: DOMENICA STORM MD on Nov 13 2024 2:35PM [facility] DIVISION OF RADIOLOGY * * *Final Report* * * DATE OF EXAM: Nov 13 2024 2:33PM WOX 5291 - XR CHEST 2V FRONTAL/LAT / PROCEDURE REASON: Chest wall discomfort * * * * Physician Interpretation * * * * EXAMINATION: CHEST RADIOGRAPH (2 VIEW FRONTAL & LATERAL) CLINICAL HISTORY: Chest wall discomfort MQ: XC2_6 EXAM DATE/TIME: 11/13/2024 2:33 PM COMPARISON: 02/11/2024 RESULT: Lines, tubes, and devices: None. Lungs and pleura: No consolidation. No lung mass. No pleural effusion. No pneumothorax. Cardiomediastinal silhouette: Normal cardiomediastinal silhouette. Bones and soft tissues: Unremarkable. DIVISION OF RADIOLOGY [facility]/13/[facility] * * *Final Report* * * DATE OF EXAM: Nov 13 2024 2:33PM WOX 5291 - XR CHEST 2V FRONTAL/LAT / PROCEDURE REASON: Chest wall discomfort * * * * Physician Interpretation * * * * EXAMINATION: CHEST RADIOGRAPH (2 VIEW FRONTAL & LATERAL) CLINICAL HISTORY: Chest wall discomfort MQ: XC2_6 EXAM DATE/TIME: 11/13/2024 2:33 PM COMPARISON: 02/11/2024 RESULT: Lines, tubes, and devices: None. Lungs and pleura: No consolidation. No lung mass. No pleural effusion. No pneumothorax. Cardiomediastinal silhouette: Normal cardiomediastinal silhouette. Bones and soft tissues: Unremarkable. IMPRESSION IMPRESSION: No acute radiographic abnormality. Automotive Upholsterer: LYNDSAY Transcribe Date/Time: Nov 13 2024 2:34P Dictated by : DOMENICA STORM MD This examination was interpreted and the report reviewed and electronically signed by: DOMENICA STORM MD on Nov 13 2024 2:35PM [facility] Radiology Study observation (narrative) [facility] XR Chest PA and LateralOrder ed By: Cc Provider on 11-13-2024 [facility] CNOVon 10-07-2024 CNOV Office Visit (INTMWS ) LANIE LISA ([id number]) 1990 F T Date Time Provider Department 10/07/24 1:20 PM VAUGHN SHRESTHA INTMWS During your visit today, we recorded the following information about you: Pulse Respiration Blood pressure Weight 80/minute 16/minute 99/66 49.7 kg Vaughn Shrestha APRN.RESIDENTIAL CHILD CARE COUNSELOR 10/07/2024 1:48 PM Signed Subjective Lanie Dumont Sloan is a 34 year old female. HPI Presents today left third finger injury. She is seen in the emergency department for this. Notes bruising the distal tip of her finger. She was up-to-date on tetanus. She was seen in clinic September 30, 2024. Requesting pain medication. Provided with hydrocodone acetaminophen. Today reports she continues to have pain in her finger. Has returned to work. Lost her finger protection. Has not used a dressing due to financial constraints. No drainage but not yet healed. No fever reported. Notes tylenol and ibuprofen helping a little. Hydrocodone caused nausea. Review of Systems Constitutional: Negative. Musculoskeletal: Positive for arthralgias. Objective BP 99/66 Pulse 80 Resp 16 Wt 49.7 kg (109 lb 9.1 oz) LMP 01/09/2017 BMI 19.41 kg/m? Physical Exam Vitals and nursing note reviewed. Constitutional: General: She is not in acute distress. Appearance: She is well-developed. She is not diaphoretic. HENT: Head: Normocephalic and atraumatic. Cardiovascular: Rate and Rhythm: Normal rate. Pulmonary: Effort: Pulmonary effort is normal. Musculoskeletal: Comments: Tender to palpation left third finger, PT wound distal tip ~1/2 diam. red wound base, no drainage. Skin: General: Skin is warm and dry. Neurological: Mental Status: She is alert. Sensory: No sensory deficit. Motor: No abnormal muscle tone. ALLERGIES No Known Allergies Current Outpatient Medications Medication Sig mupirocin (BACTROBAN) 2 % cream Apply 1 application to affected area three times a day for 10 days. Location: middle finger- left omeprazole (PRILOSEC) 40 mg capsule Take 1 capsule by mouth daily before breakfast. 1/2 hr before meal. (Patient not taking: Reported on 04/21/2024) No current facility-administered medications for this visit. PAST MEDICAL HISTORY Diagnosis Date Acid reflux Arthritis LEFT WRIST Dysthymic disorder 03/2009 Depression (non-psychotic) Endometriosis reports that she has quit smoking. Her smoking use included cigarettes. She has never used smokeless tobacco. She reports current alcohol use. She reports that she does not use drugs. Assessment and Plan ASSESSMENT/PLAN: 1. Injury of finger of left hand, subsequent encounter - ICD9: V58.89, 959.5, ICD10: S69.92XD (primary diagnosis) - OXYCODONE-ACETAMINOPHEN 5 MG-325 MG TABLET - OMEPRAZOLE 40 MG CAPSULE,DELAYED RELEASE - MELOXICAM 15 MG TABLET - OXYCODONE-ACETAMINOPHEN 5 MG-325 MG TABLET 2. Epigastric pain - ICD9: 789.06, ICD10: R10.13 - OMEPRAZOLE 40 MG CAPSULE,DELAYED RELEASE Recommend add an NSAID, meloxicam once daily until feeling improved. Switch to oxycodone acetaminophen due to GI upset on hydrocodone acetaminophen for breakthrough pain. Omeprazole daily while taking these mediations then discontinue. Let us know if not continuing to improve. Vaughn Shrestha APRN.RESIDENTIAL CHILD CARE COUNSELOR Medical Decision Making: Problems: Low: Acute, uncomplicated illness or injury Data: Unique source(s) for external note(s) reviewed: 1 Risk: Moderate: Drug management Medical Decision Making Level: 3 - Low Allergies As of Date: 10/07/2024 Noted Allergy Reaction HYDROCODONE-ACETAMINOPHEN 10/07/2024 8 - GI Upset Comments: nausea, no vomiting Date Reviewed: 10/07/2024 Reviewed by: Blanca Vaughn LPN - Fully Assessed Reason for Visit: Follow Up [171] Primary Visit Diagnosis:Injury of finger of left hand, subsequent encounter [S69.92XD] Other Visit Diagnosis:Epigastric pain [R10.13] Order(s):omeprazole (PRILOSEC) 40 mg capsuleTake 1 capsule by mouth daily before breakfast. 1/2 hr before meal.Disp: 30 capsuleRfl: 1 meloxicam (MOBIC) 15 mg tabletTake 1 tablet by mouth once daily. for pain. Take with food.Disp: 30 tabletRfl: 0 oxyCODONE-acetaminophen (PERCOCET) 5-325 mg tabletTake 1 tablet by mouth every 8 hours as needed for pain for up to 3 days.Disp: 9 tabletRfl: 0 Prescriptions as of 10/07/2024 - omeprazole (PRILOSEC) 40 mg capsule Take 1 capsule by mouth daily before breakfast. 1/2 hr before meal. - meloxicam (MOBIC) 15 mg tablet Take 1 tablet by mouth once daily. for pain. Take with food. - oxyCODONE-acetaminophen (PERCOCET) 5-325 mg tablet Take 1 tablet by mouth every 8 hours as needed for pain for up to 3 days. - mupirocin (BACTROBAN) 2 % cream Apply 1 application to affected area three times a day for 10 days. Location: middle finger- left Meds Comments as of 07/23/2019: Pharm - [facility] Retail Problem List As Of (more content not included)... Normal [facility] CNOVon 09-30-2024 CNOV Office Visit (TAWANDAPWS ) LANIE LISA ([id number]) 1990 F [facility] Date Time Provider Department 09/30/24 8:40 AM ROBERT BREWERWS During your visit today, we recorded the following information about you: Pulse Respiration Blood pressure Weight 73/minute 12/minute 96/56 45.4 kg Height 1.6 m Robert Brewer PA-C 09/30/2024 5:30 PM Signed 09/30/2024 Patient presents with: ED Follow-up: left middle finger- 09/28/24 and wants meds for pain oxycodone SUBJECTIVE: This is a 34 year old that is here today for Complaint(s) of left midlde finger pain. States she cut the tip of her finger with a knife while cutting off a zip tie around a cord. She was seen in the ED. Nothing to suture. Lost the distal tip of her finger. UTD on tetanus. Denies fever/chills, drainage that she is aware. She had not tried changing the bandages. PAST MEDICAL HISTORY Diagnosis Date Acid reflux Arthritis LEFT WRIST Dysthymic disorder 03/2009 Depression (non-psychotic) Endometriosis ALLERGIES Patient has no known allergies. MEDICATIONS Current Outpatient Medications Medication Sig omeprazole (PRILOSEC) 40 mg capsule Take 1 capsule by mouth daily before breakfast. 1/2 hr before meal. (Patient not taking: Reported on 04/21/2024) No current facility-administered medications for this visit. SOCIAL HISTORY Social History Tobacco Use Smoking status: Former Types: Cigarettes Smokeless tobacco: Never Tobacco comments: approx 2 cig per day Vaping Use Vaping status: current everyday user Substances: Nicotine, Flavoring Devices: RefBABADUble tank Substance Use Topics Alcohol use: Yes Comment: OCCASIONALLY,BUT NOT WHILE Drug use: No REVIEW OF SYSTEMS See HPI OBJECTIVE: BP 96/56 (BP Site: Right Arm, BP Position: Sitting, BP Cuff Size: Regular Adult) Pulse 73 Resp 12 Ht 160 cm (5' 3) Wt 45.4 kg (100 lb) LMP 01/09/2017 SpO2 99% BMI 17.71 kg/m? APPEARANCE Well appearing, alert, in no acute distress, well-hydrated, well nourished. EXTREMITIES bandage removed. Left middle finger distal phalanx tip with minimal bloody drainage. Not actively bleeding. Neurovascular status intact. Good capillary refill. Sensation grossly intact. No purulent drainage. No surrounding erythema, warmth, red streaking. +TTP. ASSESSMENT/PLAN: 1. Cut of skin of middle finger - ICD9: 883.0, ICD10: S61.218A Elevated, tylenol/motrin prn Prescribed 8 percocet at the ED. Patient is requesting something stronger for pain for a few days. - HYDROCODONE 7.5 MG-ACETAMINOPHEN 325 MG TABLET 1 time prescription for Vicodin. Advise only prn, no additional refills. Reviewed red flags and when to seek care sooner. Reviewed wound care and signs of infection. The patient indicates understanding of these issues and agrees with the plan. Reviewed red flags and when to seek care sooner. Robert Brewer PA-C Allergies As of Date: 09/30/2024 (No Known Allergies) Date Reviewed: 09/30/2024 Reviewed by: Nato Perez LPN - Fully Assessed Reason for Visit: ED Follow-up [821] Cmt: left middle finger- 09/28/24 and wants meds for pain oxycodone Primary Visit Diagnosis:Cut of skin of middle finger [S61.218A] Order(s):HYDROcodone-Acetam inophen (NORCO) 7.5-325 mg per tabletTake 1 tablet by mouth every 8 hours as needed for pain for up to 5 days.Disp: 5 tabletRfl: 0 mupirocin (BACTROBAN) 2 % creamApply 1 application to affected area three times a day for 10 days. Location: middle finger- leftDisp: 15 gRfl: 0 Prescriptions as of 09/30/2024 - HYDROcodone-Acetaminophen (NORCO) 7.5-325 mg per tablet Take 1 tablet by mouth every 8 hours as needed for pain for up to 5 days. - mupirocin (BACTROBAN) 2 % cream Apply 1 application to affected area three times a day for 10 days. Location: middle finger- left - omeprazole (PRILOSEC) 40 mg capsule Take 1 capsule by mouth daily before breakfast. 1/2 hr before meal. Meds Comments as of 07/23/2019: Pharm - [facility] Retail Medication notes this encounter OMEPRAZOLE 40 MG CAPSULE,DELAYED RELEASE >> Nato Perez LPN 09/30/2024 8:42 AM >> NATO PEREZ Sep 30, 2024 8:42 AM not taking Problem List As Of Date 09/30/2024 Noted Resolved Acid Reflux [K21.9] Dysthymic Disorder [F34.1] 03/12/2009 Arthritis [M19.90] Acute thoracic myofascial strain [S29.019A] 07/08/2010 Anxiety neurosis [F41.1] 02/18/2016 Tobacco use [Z72.0] 02/18/2016 Generalized abdominal pain [R10.84] 11/30/2016 Acute superficial gastritis without hemorrhage *12/23/2016 Prescriptions ordered this encounter Disp Refills Start End HYDROCODONE 7.5 MG-ACETAMINOPHEN 325* 5 ta* 0 09/30/2024 10/05/2024 Route: ORAL Sig: Take 1 tablet by mouth every 8 hours as needed for pain for up to 5 days. MUPIROCIN CALCIUM 2 % TOPICAL CREAM 15 g 0 09/30/2024 10/10/2024 Route: TOPICAL Sig: Apply 1 appli (more content not included)... Normal [facility] 09-30-2024 [facility] Telephone (INTMWS) LANIE LISA ([id number]) 1990 F T Date Time Provider Department 09/30/24 ROBERT BREWER INTMWS During your visit today, we recorded the following information about you: Meredith Dale LPN 09/30/2024 9:38 AM Signed Patient calling said there was a problem with one of her rx pharmacy would not fill. I phoned [facility] and spoke to pharmacist and he said not filling the Hydrocodone rx, patient had just gotten Oxycodone [address] Ilir Bennett from [facility] filled at [facility] on 09/28/2024, when he checked OARS. Please advise Robert Brewer PA-C 09/30/2024 9:52 AM Signed Noted. Please advise patient to use percocet prescribed (she was given #8) Use only prn and otherwise taking tylenol/motrin prn. Do not combine tylenol with percocet. Robert Brewer PA-C 09/30/2024 Shawna Cerna MA 09/30/2024 10:43 AM Signed Call to pt. Pt states that she took her last Percocet this morning and states she discussed this with you at the office visit. She currently has no medication at this time. Did advise pt to use Tylenol/Motrin for pain, not to use with Percocet, but pt states she does not have any more. Please advise. ЕКАТЕРИНА Valera Bernadette, PA-C 09/30/2024 12:01 PM Signed Please contact pharmacy and advise I would approve filling. Patient had #8 prescribed on Sunday. If taking every 6 hours, would be out of medication appropriately. Patient has a recent injury. Short supply #5 prescribed to be used prn. SURENDRA Kelly Krista, LPN 09/30/2024 2:19 PM Signed Pharmacy contacted. Spoke to pharmacist and gave provider message. Pharmacist reports he will get rx ready for pt. Kim Fam LPN Allergies As of Date: 09/30/2024 (No Known Allergies) Date Reviewed: 09/30/2024 Reviewed by: Nato Perez LPN - Fully Assessed Reason for Visit: Medication Problem [65] Prescriptions as of 09/30/2024 - HYDROcodone-Acetaminophen (NORCO) 7.5-325 mg per tablet Take 1 tablet by mouth every 8 hours as needed for pain for up to 5 days. - mupirocin (BACTROBAN) 2 % cream Apply 1 application to affected area three times a day for 10 days. Location: middle finger- left - omeprazole (PRILOSEC) 40 mg capsule Take 1 capsule by mouth daily before breakfast. 1/2 hr before meal. Meds Comments as of 07/23/2019: Pharm - [facility] Retail Problem List As Of Date 09/30/2024 Noted Resolved Acid Reflux [K21.9] Dysthymic Disorder [F34.1] 03/12/2009 Arthritis [M19.90] Acute thoracic myofascial strain [S29.019A] 07/08/2010 Anxiety neurosis [F41.1] 02/18/2016 Tobacco use [Z72.0] 02/18/2016 Generalized abdominal pain [R10.84] 11/30/2016 Acute superficial gastritis without hemorrhage *12/23/2016 Encounter Status:Closed by KIM FAM on 09/30/24 Normal [facility] Emergency Department Summary on 09-28-2024 Emergency Department Summary [facility] Medical Records Department [address] [place] [address] Emergency Department Summary 09/28/24 MR#: [id number] Acct: [id number] Name: LANIE LISA Rep #: [id number] : 1990 34 From: Donald Salazar DO PCP: Dr. Michelle Wilcox MD Status:REG ER Location: ED HPI History of Present Illness Chief Complaint: Laceration Narrative Narrative: Patient is a 34-year-old female with a past medical history of anxiety, depression, GERD who presents to the emergency department with a chief complaint of left middle finger laceration. Patient states that she was getting an extension cord that had a zip tie around this and she went to cut this off with a pocket knife and she states that she slipped and cut her middle finger. She states that it went through the tip of her middle finger and had immediate pain and bleeding therefore she came here for further evaluation management. Patient states that very similar thing happened to her not long ago and she had her tetanus shot updated at that point time. Patient states her pain is a 9 out of 10 currently. [facility] Medical History Pyelonephritis Smoker Wears contact lenses Wears glasses Depression Anxiety History of steroid therapy Arthritis Kidney stones Back pain Migraine headache Injury of head and neck Gastric reflux Shortness of breath on exertion History of edema History of irregular heartbeat Renal calculus Substance abuse Gastritis Asthma Home Medications ???Medication ???Instructions ???Recorded ???Last Taken ???Type albuterol sulfate 90 mcg/actuation 2 puff inhalation Q6H PRN ASTHMA 03/21/22 Unknown History aerosol inhaler ondansetron 4 mg disintegrating 4 mg PO Q6H PRN nausea and 09/28/24 Unknown Rx tablet vomiting #20 tabs oxycodone-acetaminophen 5 mg-325 1 tab PO Q6H PRN pain 2 days #8 09/28/24 Unknown Rx mg tablet (Percocet) tabs Allergy/AdvReac Type Severity Reaction Status Date / Time No Known Allergies Allergy Verified 09/28/24 17:43 Family History Mother Asthma Arthritis Lung cancer Osteoporosis Thyroid disorder Surgical History Hx of colonoscopy History of esophagogastroduodenoscopy (EGD) Hx of dilation and curettage Hx of thumb surgery Hx of laparoscopy History of tonsillectomy and adenoidectomy History of appendectomy History of hysterectomy Social History Smoking Status: Current every day smoker tobacco type: e-cigarettes alcohol intake: current substance use type: does not use additional social history: no aspirin use no ibuprofen use ROS ROS ED ROS Narrative Constitutional: Denies any fevers or chills Neurological: Complains of burning sensation to her left distal middle finger denies any other numbness, tingling Skin: Complains of a cut to her left middle finger as noted above from pocket knife EXAM Physical Exam Narrative Exam Narrative: General: Patient did appear to be uncomfortable secondary to her pain Head: Atraumatic, normocephalic Eyes: PERRL bilateral, EOMI bilaterally, no conjunctival injection noted Neck: Soft, supple, trachea midline Cardiovascular: Regular rate and rhythm no murmurs gallops rubs noted Musculoskeletal: Patient has distal middle finger avulsion from her pocket knife. There is no laceration to be some shut. There is mild active bleeding noted on exam. Patient is able to abduct adduct her fingers, flex extend her fingers bilaterally oppose her thumb to her pinky bilaterally as well as give me the okay sign and thumbs up sign Extremities: Radial pulses +2/4 in the bilateral per extremities, +5/5 strength noted in the bilateral upper and lower extremities Neurological: Patient following commands knew that she was at [facility] years 2023. Sensation grossly intact in the median, ulnar and radial nerve distributions bilaterally Skin: See musculoskeletal Const Vital Signs: 09/28/24 17:44 Temperature 96.4 F L Temperature Source Temporal Pulse Rate 98 Respiratory Rate 18 Blood Pressure 135/88 H Blood Pressure Mean 103 Pulse Ox 98 Oxygen Delivery Method Room Air MDM MDM MDM Narrative Medical decision making narrative: Patient is a 34-year-old female who presents to the emergency department with a chief complaint of laceration/avulsion to the distal left middle finger. Patient will have x-ray performed. On the differential diagnose includes but limited to skin avulsion, fracture, retained foreign body. Once workup is obtained reviewed she will be reevaluated. Once again the patient's tetanus shot was just recently updated does (more content not included)... Normal [facility] Finger(s) Min 2 Viewson 09-12 Finger(s) Min 2 Views [facility] Imaging Services [address] [place], [place] [id number] Finger(s) Min 2 Views MR#: [id number] Acct: [id number] Name: LANIE LISA Rep #: [id number] : 1990 F 34 From: Winston Au PCP: Dr. Michelle Wilcox MD Status: REG ER Study: Finger(s) Min 2 Views Date of Exam: 09/28/24 Exam# [id number] Ordering Dr: Donald Salazar DO [id number] EXAM: XR LEFT FINGERS, 2 OR MORE VIEWS CLINICAL INDICATION: middle finger injury TECHNIQUE: Frontal, lateral and oblique views of the fingers of the left hand. COMPARISON: No relevant prior studies available. FINDINGS: BONES/JOINTS: Unremarkable. No acute fracture. No subluxation. Normal alignment. Preservation of the joint space. No sclerotic or destructive changes observed. SOFT TISSUES: In the volar aspect of the digit, there is soft tissue swelling and air consistent for recent soft tissue injury. No radiopaque foreign body. RAD/Finger(s) Min 2 Views IMPRESSION: In the volar aspect of the digit, there is soft tissue swelling and air consistent for recent soft tissue injury. Electronically Signed: Winston Solorzano MD at 18:51 EST , CC: Dr. Michelle Wilcox MD; Dr. Donald Salazar DO Automotive Upholsterer: Signed Normal [facility] CBC W Auto Differential pane l (Bld)on 07-03-2024 Basophils (Bld) [#/Vol] 0.03 10*3/uL [facility] Basophils/100 WBC (Bld) 0.5 % [facility] Differential cell count method Nom (Bld) Auto [facility] Eosinophils (Bld) [#/Vol] 0.07 10*3/uL [facility] Eosinophils/100 WBC (Bld) 1.1 % [facility] Erythrocyte distribution width (RBC) [Ratio] 13.0 % 11.5 - 15.0 % [facility] Hematocrit (Bld) [Volume fraction] 41.6 % 36.0 - 46.0 % [facility] Hemoglobin (Bld) [Mass/Vol] 13.9 g/dL 11.5 - 15.5 g/dL [facility] Immature granulocytes (Bld) [#/Vol] [facility] Immature granulocytes/100 WBC (Bld) 0.3 % [facility] Lymphocytes (Bld) [#/Vol] 1.77 10*3/uL [facility] Lymphocytes/100 WBC (Bld) 26.9 % [facility] MCH (RBC) [Entitic mass] 30.8 pg 26.0 - 34.[address] [facility] MCHC (RBC) [Mass/Vol] 33.4 g/dL 30.5 - 36.0 g/dL [facility] MCV (RBC) [Entitic vol] 92.0 fL 80.0 - 100.[address] [facility] Monocytes (Bld) [#/Vol] 0.39 10*3/uL [facility] Monocytes/100 WBC (Bld) 5.9 % [facility] Neutrophils (Bld) [#/Vol] 4.29 10*3/uL [facility] Neutrophils/100 WBC (Bld) 65.3 % [facility] Nucleated RBC (Bld) [#/Vol] [facility] Nucleated RBC/100 WBC (Bld) [Ratio] 0.0 % /[address] [facility] Platelet mean volume (Bld) [Entitic vol] 9.0 fL 9.0 - 12.[address] [facility] Platelets (Bld) [#/Vol] 329 10*3/uL [facility] RBC (Bld) [#/Vol] 4.52 10*6/uL 3.90 - 5.20 m/uL [facility] WBC (Bld) [#/Vol] 6.57 10*3/uL [facility] CT Foot - left WO contraston 04-22-2024 IMPRESSION: CALCANEAL FRACTURE WITH SOFT TISSUE EDEMA. Automotive Upholsterer: LYNDSAY Transcribe Date/Time: Apr 22 2024 4:25P Dictated by : MILTON SPENCER MD This examination was interpreted and the report reviewed and electronically signed by: MILTON SPENCER MD on Apr 22 2024 4:30PM [facility] DIVISION OF RADIOLOGY * * *Final Report* * * DATE OF EXAM: Apr 22 2024 4:01PM [place] [id number] - CT FOOT WO IVCON LT / PROCEDURE REASON: Closed fracture of left foot, initial encounter * * * * Physician Interpretation * * * * CT FOOT WO IVCON LT HISTORY: Closed fracture of left foot, initial encounter . Suspected left foot fracture TECHNIQUE: Spiral CT scanning of left foot was performed in axial plane. Coronal and sagittal reconstructions were obtained from the original data set. CT Radiation dose: Integrated Dose-length product (DLP) for this visit = 240 mGy*cm. CT Dose Reduction Employed: Automated exposure control(AEC) and iterative recon COMPARISON: Radiographs dated 04/21/2024. RESULT: Minimally displaced, comminuted fracture in the plantar and posterior aspects of the tuberosity of the calcaneus. Joint spaces are preserved. Tendons and muscles have normal appearance. Medial ankle and plantar heel soft tissue edema. LOCALIZER IMAGES: No additional findings. DIVISION OF RADIOLOGY Provider, [facility] - 04/22/2024 * * *Final Report* * * DATE OF EXAM: Apr 22 2024 4:01PM [facility] [id number] - CT FOOT WO IVCON LT / PROCEDURE REASON: Closed fracture of left foot, initial encounter * * * * Physician Interpretation * * * * CT FOOT WO IVCON LT HISTORY: Closed fracture of left foot, initial encounter . Suspected left foot fracture TECHNIQUE: Spiral CT scanning of left foot was performed in axial plane. Coronal and sagittal reconstructions were obtained from the original data set. CT Radiation dose: Integrated Dose-length product (DLP) for this visit = 240 mGy*cm. CT Dose Reduction Employed: Automated exposure control(AEC) and iterative recon COMPARISON: Radiographs dated 04/21/2024. RESULT: Minimally displaced, comminuted fracture in the plantar and posterior aspects of the tuberosity of the calcaneus. Joint spaces are preserved. Tendons and muscles have normal appearance. Medial ankle and plantar heel soft tissue edema. LOCALIZER IMAGES: No additional findings. IMPRESSION IMPRESSION: CALCANEAL FRACTURE WITH SOFT TISSUE EDEMA. Automotive Upholsterer: LYNDSAY Transcribe Date/Time: Apr 22 2024 4:25P Dictated by : MILTON SPENCER MD This examination was interpreted and the report reviewed and electronically signed by: MILTON SPENCER MD on Apr 22 2024 4:30PM EST [facility] Radiology Study observation (narrative) [facility] CT Foot - left WO contrastOr dered By: [facility] Provider on 04-22-2024 [facility] XR Foot - left AP and Latera l and obliqueon 04-21-2024 IMPRESSION: Findings suggestive of subtle nondisplaced fractures of the subungual tuft of the first distal phalanx and of the plantar aspect of the calcaneal body. Automotive Upholsterer[facility] Transcribe Date/Time: Apr 21 2024 12:41P Dictated by : HYUN ASHRAF MD This examination was interpreted and the report reviewed and electronically signed by: HYUN ASHRAF MD on Apr 21 2024 12:43PM EST DIVISION OF RADIOLOGY * * *Final Report* * * DATE OF EXAM: Apr 21 2024 12:34PM WOX [id number] - XR FOOT 3V AP/LAT/OBL LT / PROCEDURE REASON: Injury of toe on left foot, subsequent encounter * * * * Physician Interpretation * * * * TITLE: XR FOOT 3V AP/LAT/OBL LT CLINICAL INDICATION: Toe injury TECHNIQUE: 3 view radiographic study of the left foot COMPARISON: None FINDINGS: Findings suspicious for a possible subtle nondisplaced fracture of the plantar aspect of the posterior calcaneal body with a subtle cortical irregularity seen in this region. Additional suspected subtle nondisplaced fracture of the subungual tuft of the first distal phalanx. Joint spaces preserved. [facility]Y [facility] * * *Final Report* * * DATE OF EXAM: Apr 21 2024 12:34PM WOX [id number] - XR FOOT 3V AP/LAT/OBL LT / PROCEDURE REASON: Injury of toe on left foot, subsequent encounter * * * * Physician Interpretation * * * * TITLE: XR FOOT 3V AP/LAT/OBL LT CLINICAL INDICATION: Toe injury TECHNIQUE: 3 view radiographic study of the left foot COMPARISON: None FINDINGS: Findings suspicious for a possible subtle nondisplaced fracture of the plantar aspect of the posterior calcaneal body with a subtle cortical irregularity seen in this region. Additional suspected subtle nondisplaced fracture of the subungual tuft of the first distal phalanx. Joint spaces preserved. IMPRESSION IMPRESSION: Findings suggestive of subtle nondisplaced fractures of the subungual tuft of the first distal phalanx and of the plantar aspect of the calcaneal body. Automotive Upholsterer: PSCB Transcribe Date/Time: Apr 21 2024 12:41P Dictated by : HYUN ASHRAF MD This examination was interpreted and the report reviewed and electronically signed by: HYUN ASHRAF MD on Apr 21 2024 12:43PM EST [facility] Radiology Study observation (narrative) [facility] XR Foot - left AP and Latera l and obliqueOrdered By: Ccf Provider on 04-21-[address] [facility] [address] Abdomen and Pelvis WO con traston 02-25-2024 [facility] AMYLASEon 02-22-2024 Amylase [Catalytic activity/Vol] 58 U/L 30 - 104 U/L [facility] CBC W Auto Differential pane l (Bld)on 02-22-2024 Basophils (Bld) [#/Vol] 0.04 10*3/uL <0.11 k/uL [facility] Basophils/100 WBC (Bld) 0.9 % [facility] Differential cell count method Nom (Bld) Auto [facility] Eosinophils (Bld) [#/Vol] 0.07 10*3/uL <0.46 k/uL [facility] Eosinophils/100 WBC (Bld) 1.6 % [facility] Erythrocyte distribution width (RBC) [Ratio] 13.6 % 11.5 - 15.0 % [facility] Hematocrit (Bld) [Volume fraction] 37.4 % 36.0 - 46.0 % [facility] Hemoglobin (Bld) [Mass/Vol] 12.5 g/dL 11.5 - 15.5 g/dL [facility] Immature granulocytes (Bld) [#/Vol] <0.10 k/uL [facility] Immature granulocytes/100 WBC (Bld) 0.0 % [facility] Lymphocytes (Bld) [#/Vol] 1.59 10*3/uL 1.00 - 4.00 k/uL [facility] Lymphocytes/100 WBC (Bld) 37.0 % [facility] MCH (RBC) [Entitic mass] 31.0 pg 26.0 - 34.[address] [facility] MCHC (RBC) [Mass/Vol] 33.4 g/dL 30.5 - 36.0 g/dL [facility] MCV (RBC) [Entitic vol] 92.8 fL 80.0 - 100.[address] [facility] Monocytes (Bld) [#/Vol] 0.42 10*3/uL <0.87 k/uL [facility] Monocytes/100 WBC (Bld) 9.8 % [facility] Neutrophils (Bld) [#/Vol] 2.18 10*3/uL 1.45 - 7.50 k/uL [facility] Neutrophils/100 WBC (Bld) 50.7 % [facility] Nucleated RBC (Bld) [#/Vol] <0.01 k/uL [facility] Nucleated RBC/100 WBC (Bld) [Ratio] 0.0 /[address] [facility] Platelet mean volume (Bld) [Entitic vol] 8.9 fL Low 9.0 - 12.[address] [facility] Platelets (Bld) [#/Vol] 349 10*3/uL 150 - 400 k/uL [facility] RBC (Bld) [#/Vol] 4.03 10*6/uL 3.90 - 5.20 m/uL [facility] WBC (Bld) [#/Vol] 4.30 10*3/uL 3.70 - 11.00 k/uL [facility] Comprehensive metabolic 2000 panelon 02-22-2024 Albumin [Mass/Vol] 4.6 g/dL 3.9 - 4.9 g/dL [facility] ALP [Catalytic activity/Vol] 87 U/L 34 - 123 U/L [facility] ALT [Catalytic activity/Vol] 19 U/L 7 - 38 U/L [facility] Anion gap [Moles/Vol] 9 mmol/L 9 - 18 mmol/L [facility] AST [Catalytic activity/Vol] 18 U/L 13 - 35 U/L [facility] Bilirubin [Mass/Vol] 0.6 mg/dL 0.2 - 1 .3 mg/dL [facility] Calcium [Mass/Vol] 10.2 mg/dL 8.5 - 10. 2 mg/dL [facility] Chloride [Moles/Vol] 100 mmol/L 97 - 10 5 mmol/L [facility] CO2 [Moles/Vol] 29 mmol/L 22 - 30 mmol/L [facility] Creatinine [Mass/Vol] 0.72 mg/dL 0.58 - 0.96 mg/dL [facility] Estimated Glomerular Filtration Rate 114 mL/min/1.73m >=60 mL/min/1.[address] [facility] Glucose [Mass/Vol] 93 mg/dL 74 - 99 mg/dL [facility] Potassium [Moles/Vol] 4.0 mmol/L 3.7 - 5.1 mmol/L [facility] Protein [Mass/Vol] 7.8 g/dL 6.3 - 8.0 g/dL [facility] Sodium [Moles/Vol] 138 mmol/L 136 - 144 mmol/L [facility] Urea nitrogen [Mass/Vol] 12 mg/dL 7 - 21 mg/dL [facility] LIPASEon 02-22-2024 Lipase [Catalytic activity/Vol] 15 U/L Low 16 - 61 U/L [facility] UA DIP, URINE (POC)on 2023 BILIRUBIN UA (POCT) Negative Negative [facility] CLARITY UA (POCT) Clear [facility] COLOR UA (POCT) Yellow [facility] GLUCOSE UA (POCT) Negative Negative mg/dL [facility] Hemoglobin Ql (U) Trace-lysed Abnormal Negative [facility] KETONE UA (POCT) Negative Negative mg/dL [facility] LEUKOCYTES UA (POCT) Negative Negative [facility] NITRITE UA (POCT) Negative Negative [facility] PH UA (POCT) 6.0 4.5 - 8.0 [facility] Protein Ql (U) Negative Negative mg/dL [facility] SPECIFIC GRAVITY UA (POCT) >=1.030 1.005 - 1.030 [facility] UROBILINOGEN UA (POCT) 0.2 E.U./dL Sonia l E.U./dL [facility] No Panel Informationon 02-11 [facility] US ABD RIGHT UPPER QUADRANTo n 02-12-2024 US ABD RIGHT UPPER QUADRANT * * *Final Report* * * DATE OF EXAM: Feb 12 2024 11:34AM LDU 1032 - US ABD RIGHT UPPER QUADRANT / PROCEDURE REASON: multiple diagnoses * * * * Physician Interpretation * * * * EXAMINATION: RIGHT UPPER QUADRANT AND SPLEEN ULTRASOUND CLINICAL HISTORY: Epigastric pain TECHNIQUE: Sonography of the right upper quadrant and spleen was performed. Images were obtained and stored in a permanent archive. MQ: URUQ_2 COMPARISON: Ultrasound kidneys February 05, 2024 RESULT: Pancreas: Normal sonographic appearance. Portions obscured: tail Liver: Echotexture: Normal, homogeneous. Echogenicity: Normal Surface contour: Smooth Lesions: None. Biliary: No intrahepatic biliary duct dilation. CBD: 0.1 cm at the hilum. Gallbladder: Normal caliber -Contents: No cholelithiasis -Wall: Normal -Other: No pericholecystic fluid. Right Kidney: No hydronephrosis. Left kidney: No hydronephrosis. 4 mm echogenic focus in the inferior pole suspicious for stone. Ascites: None. Spleen: The craniocaudal length of the spleen is 9.1 cm, normal. There are no splenic lesions. IMPRESSION: Suspected 4 mm stone inferior pole left kidney. Automotive Upholsterer: [facility] Transcribe Date/Time: Feb 12 2024 11:52A Dictated by : TI COPE MD This examination was interpreted and the report reviewed and electronically signed by: TI COPE MD on Feb 12 2024 11:58AM EST [id number] Normal [facility] US ABD SPLEEN -NBon 02-12-20 24 US ABD SPLEEN -NB * * *Final Report* * * DATE OF EXAM: Feb 12 2024 11:34AM LDU 1232 - US ABD SPLEEN -NB / PROCEDURE REASON: multiple diagnoses * * * * Physician Interpretation * * * * EXAMINATION: RIGHT UPPER QUADRANT AND SPLEEN ULTRASOUND CLINICAL HISTORY: Epigastric pain TECHNIQUE: Sonography of the right upper quadrant and spleen was performed. Images were obtained and stored in a permanent archive. MQ: URUQ_2 COMPARISON: Ultrasound kidneys February 05, 2024 RESULT: Pancreas: Normal sonographic appearance. Portions obscured: tail Liver: Echotexture: Normal, homogeneous. Echogenicity: Normal Surface contour: Smooth Lesions: None. Biliary: No intrahepatic biliary duct dilation. CBD: 0.1 cm at the hilum. Gallbladder: Normal caliber -Contents: No cholelithiasis -Wall: Normal -Other: No pericholecystic fluid. Right Kidney: No hydronephrosis. Left kidney: No hydronephrosis. 4 mm echogenic focus in the inferior pole suspicious for stone. Ascites: None. Spleen: The craniocaudal length of the spleen is 9.1 cm, normal. There are no splenic lesions. IMPRESSION: Suspected 4 mm stone inferior pole left kidney. Automotive Upholsterer: [facility] Transcribe Date/Time: Feb 12 2024 11:52A Dictated by : TI COPE MD This examination was interpreted and the report reviewed and electronically signed by: TI COPE MD on Feb 12 2024 11:58AM EST [id number] Normal [facility] AMYLASE BLDon 02-11-2024 Amylase [Catalytic activity/Vol] 108 U/L High 30 - 104 U/L [facility] CBC W Auto Differential pane l (Bld)on 02-11-2024 Basophils (Bld) [#/Vol] 0.03 10*3/uL <0.11 k/uL [facility] Basophils/100 WBC (Bld) 0.3 % [facility] Differential cell count method Nom (Bld) Auto [facility] Eosinophils (Bld) [#/Vol] 0.18 10*3/uL <0.46 k/uL [facility] Eosinophils/100 WBC (Bld) 2.0 % [facility] Erythrocyte distribution width (RBC) [Ratio] 13.1 % 11.5 - 15.0 % [facility] Hematocrit (Bld) [Volume fraction] 36.7 % 36.0 - 46.0 % [facility] Hemoglobin (Bld) [Mass/Vol] 11.9 g/dL 11.5 - 15.5 g/dL [facility] Immature granulocytes (Bld) [#/Vol] 0.03 10*3/uL <0.10 k/uL [facility] Immature granulocytes/100 WBC (Bld) 0.3 % [facility] Lymphocytes (Bld) [#/Vol] 1.52 10*3/uL 1.00 - 4.00 k/uL [facility] Lymphocytes/100 WBC (Bld) 16.5 % [facility] MCH (RBC) [Entitic mass] 30.2 pg 26.0 - 34.[address] [facility] MCHC (RBC) [Mass/Vol] 32.4 g/dL 30.5 - 36.0 g/dL [facility] MCV (RBC) [Entitic vol] 93.1 fL 80.0 - 100.[address] [facility] Monocytes (Bld) [#/Vol] 0.40 10*3/uL <0.87 k/uL [facility] Monocytes/100 WBC (Bld) 4.3 % [facility] Neutrophils (Bld) [#/Vol] 7.06 10*3/uL 1.45 - 7.50 k/uL [facility] Neutrophils/100 WBC (Bld) 76.6 % [facility] Nucleated RBC (Bld) [#/Vol] <0.01 k/uL [facility] Nucleated RBC/100 WBC (Bld) [Ratio] 0.0 /[address] [facility] Platelet mean volume (Bld) [Entitic vol] 8.6 fL Low 9.0 - 12.[address] [facility] Platelets (Bld) [#/Vol] 615 10*3/uL High 150 - 400 k/uL [facility] RBC (Bld) [#/Vol] 3.94 10*6/uL 3.90 - 5.20 m/uL [facility] WBC (Bld) [#/Vol] 9.22 10*3/uL 3.70 - 11.00 k/uL [facility] Comprehensive metabolic 2000 panelon 02-11-2024 Albumin [Mass/Vol] 4.3 g/dL 3.9 - 4.9 g/dL [facility] ALP [Catalytic activity/Vol] 95 U/L 34 - 123 U/L [facility] ALT [Catalytic activity/Vol] 43 U/L High 7 - 38 U/L [facility] Anion gap [Moles/Vol] 11 mmol/L 9 - 18 mmol/L [facility] AST [Catalytic activity/Vol] 23 U/L 13 - 35 U/L [facility] Bilirubin [Mass/Vol] 0.2 mg/dL 0.2 - 1 .3 mg/dL [facility] Calcium [Mass/Vol] 10.0 mg/dL 8.5 - 10. 2 mg/dL [facility] Chloride [Moles/Vol] 101 mmol/L 97 - 10 5 mmol/L [facility] CO2 [Moles/Vol] 26 mmol/L 22 - 30 mmol/L [facility] Creatinine [Mass/Vol] 0.77 mg/dL 0.58 - 0.96 mg/dL [facility] Estimated Glomerular Filtration Rate 105 mL/min/1.73m >=60 mL/min/1.[address] [facility] Glucose [Mass/Vol] 108 mg/dL High 74 - 99 mg/dL [facility] Potassium [Moles/Vol] 4.0 mmol/L 3.7 - 5.1 mmol/L [facility] Protein [Mass/Vol] 7.8 g/dL 6.3 - 8.0 g/dL [facility] Sodium [Moles/Vol] 138 mmol/L 136 - 144 mmol/L [facility] Urea nitrogen [Mass/Vol] 25 mg/dL High 7 - 21 mg/dL [facility] LIPASE BLDon 02-11-2024 Lipase [Catalytic activity/Vol] 21 U/L 16 - 61 U/L [facility] No Panel Informationon 02-10 Radiology Study observation (narrative) [facility] Urinalysis complete panel (U )on 02-11-2024 Bacteria LM.HPF (Urine sed) [#/Area] Negative Negative /HPF [facility] Bilirubin Ql (U) Negative Negative [facility] Clarity (Unsp spec) Clear Clear [facility] Color (U) Yellow Yellow [facility] Epithelial cells LM.HPF (Urine sed) [#/Area] Few [facility] Glucose Test strip (U) [Mass/Vol] Negative Negative [facility] Hemoglobin Ql (U) Negative Negative [facility] Hyaline casts (Urine sed) [#/Area] 0 /[LPF] 0 /LPF [facility] Ketones Ql (U) Negative Negative [facility] Leukocyte esterase Test strip Ql (U) Trace Abnormal Negative [facility] Nitrite Ql (U) Negative Negative [facility] pH (U) 6.5 [pH] <8.5 [facility] Protein (U) [Mass/Vol] Negative Negative [facility] RBC LM.HPF (Urine sed) [#/Area] 6-10 /HPF Abnormal 0-2 /HPF [facility] Specific gravity (U) [Rel density] 1.019 1.005 - 1.030 [facility] Urobilinogen Ql (U) 0.2 EU/dL 0.2-1.0 EU/dL [facility] WBC LM.HPF (Urine sed) [#/Area] 0-5 /HPF 0-5 /HPF [facility] Yeast.budding LM.HPF (Urine sed) [#/Area] Present Abnormal None Seen /HPF [facility] XR Abdomen Supine and Uprigh ton 02-11-2024 IMPRESSION: 1. Nonobstructive bowel gas pattern. 2. Large stool burden. 2. No radiographic evidence of urinary tract calculi. Automotive Upholsterer[facility] Transcribe Date/Time: Feb 11 2024 3:10P Dictated by : HYUN ASHRAF MD This examination was interpreted and the report reviewed and electronically signed by: HYUN ASHRAF MD on Feb 11 2024 3:12PM [facility] DIVISION OF RADIOLOGY * * *Final Report* * * DATE OF EXAM: Feb 11 2024 3:06PM WOX 5356 - XR ABD 2V SUPINE W UPR/DECUB/CTL / PROCEDURE REASON: multiple diagnoses * * * * Physician Interpretation * * * * TITLE: XR ABD 2V SUPINE W UPR/DECUB/CTL CLINICAL INDICATION: Epigastric burning. Possible left renal calculus on recent sonogram. TECHNIQUE: Frontal supine and upright radiographs of the abdomen COMPARISON: Non- FINDINGS: Nonobstructive bowel gas pattern. Moderately large stool burden scattered throughout the colon. No gross pneumoperitoneum. No radiographic evidence of urinary tract calculi. Surgical clips in the right lower quadrant. DIVISION OF RADIOLOGY Provider, [facility] - 02/11/2024 * * *Final Report* * * DATE OF EXAM: Feb 11 2024 3:06PM WOX 5356 - XR ABD 2V SUPINE W UPR/DECUB/CTL / PROCEDURE REASON: multiple diagnoses * * * * Physician Interpretation * * * * TITLE: XR ABD 2V SUPINE W UPR/DECUB/CTL CLINICAL INDICATION: Epigastric burning. Possible left renal calculus on recent sonogram. TECHNIQUE: Frontal supine and upright radiographs of the abdomen COMPARISON: Non- FINDINGS: Nonobstructive bowel gas pattern. Moderately large stool burden scattered throughout the colon. No gross pneumoperitoneum. No radiographic evidence of urinary tract calculi. Surgical clips in the right lower quadrant. IMPRESSION IMPRESSION: 1. Nonobstructive bowel gas pattern. 2. Large stool burden. 2. No radiographic evidence of urinary tract calculi. Automotive Upholsterer: LYNDSAY Transcribe Date/Time: Feb 11 2024 3:10P Dictated by : HYUN ASHRAF MD This examination was interpreted and the report reviewed and electronically signed by: HYUN ASHRAF MD on Feb 11 2024 3:12PM EST [facility] XR Chest PA and Lateralon IMPRESSION: No acute radiographic abnormality. Automotive Upholsterer: [facility] Transcribe Date/Time: Feb 11 2024 3:09P Dictated by : HYUN ASHRAF MD This examination was interpreted and the report reviewed and electronically signed by: HYUN ASHRAF MD on Feb 11 2024 3:11PM EST DIVISION OF RADIOLOGY * * *Final Report* * * DATE OF EXAM: Feb 11 2024 3:06PM WOX 5291 - XR CHEST 2V FRONTAL/LAT / PROCEDURE REASON: multiple diagnoses * * * * Physician Interpretation * * * * EXAMINATION: CHEST RADIOGRAPH (2 VIEW FRONTAL & LATERAL) CLINICAL HISTORY: Epigastric burning sensation Abnormal finding of kidney MQ: XC2_6 EXAM DATE/TIME: 02/11/2024 3:06 PM COMPARISON: No relevant prior studies available. RESULT: Lines, tubes, and devices: None. Lungs and pleura: Lungs well-expanded. No consolidation. No lung mass. No pleural effusion. No pneumothorax. Cardiomediastinal silhouette: Normal cardiomediastinal silhouette. Bones and soft tissues: Unremarkable. DIVISION OF RADIOLOGY Provider, [facility] - 02/11/2024 * * *Final Report* * * DATE OF EXAM: Feb 11 2024 3:06PM WOX 5291 - XR CHEST 2V FRONTAL/LAT / PROCEDURE REASON: multiple diagnoses * * * * Physician Interpretation * * * * EXAMINATION: CHEST RADIOGRAPH (2 VIEW FRONTAL & LATERAL) CLINICAL HISTORY: Epigastric burning sensation Abnormal finding of kidney MQ: XC2_6 EXAM DATE/TIME: 02/11/2024 3:06 PM COMPARISON: No relevant prior studies available. RESULT: Lines, tubes, and devices: None. Lungs and pleura: Lungs well-expanded. No consolidation. No lung mass. No pleural effusion. No pneumothorax. Cardiomediastinal silhouette: Normal cardiomediastinal silhouette. Bones and soft tissues: Unremarkable. IMPRESSION IMPRESSION: No acute radiographic abnormality. Automotive Upholsterer: PSCIlir Transcribe Date/Time: Feb 11 2024 3:09P Dictated by : HYUN ASHRAF MD This examination was interpreted and the report reviewed and electronically signed by: HYUN ASHRAF MD on Feb 11 2024 3:11PM EST [facility] XR Chest PA and LateralOrder ed By: Ccf Provider on 02-11-2024 [facility] T4 FREE/FREE THYROXon 2023 Free T4 [Mass/Vol] 1.3 ng/dL 0.9 - 1.7 ng/dL [facility] TSH BLDon 02-05-2024 TSH Qn 0.769 m[IU]/L 0.270 - 4.200 mIU/L [facility] UA DIP, URINE (POC)on 2023 BILIRUBIN UA (POCT) Negative Negative [facility] CLARITY UA (POCT) Clear [facility] COLOR UA (POCT) Yellow [facility] GLUCOSE UA (POCT) Negative Negative mg/dL [facility] Hemoglobin Ql (U) Trace-intact Abnormal Negative [facility] KETONE UA (POCT) Negative Negative mg/dL [facility] LEUKOCYTES UA (POCT) Negative Negative [facility] NITRITE UA (POCT) Negative Negative [facility] PH UA (POCT) 6.0 4.5 - 8.0 [facility] Protein Ql (U) Negative Negative mg/dL [facility] SPECIFIC GRAVITY UA (POCT) >=1.030 1.005 - 1.030 [facility] UROBILINOGEN UA (POCT) 0.2 E.U./dL Sonia l E.U./dL [facility] US KIDNEY/BLADDERon 02-05-20 US KIDNEY/BLADDER * * *Final Report* * * DATE OF EXAM: Feb 05 2024 5:33PM LDU 1055 - US KIDNEY/BLADDER / PROCEDURE REASON: multiple diagnoses * * * * Physician Interpretation * * * * EXAMINATION: RENAL ULTRASOUND CLINICAL HISTORY: Concern for pyelonephritis TECHNIQUE: Sonography of the kidneys and urinary bladder was performed. Images were obtained and stored in a permanent archive. MQ: UR_1 COMPARISON: CT abdomen pelvis 05/22/2022 RESULT: Right Kidney: -Renal length: 9.9 cm -Parenchyma: Normal parenchymal echogenicity. Normal parenchymal thickness. -Collecting system: No hydronephrosis. -Calculus: No echogenic, shadowing calculus. -Lesion: None. Left Kidney: -Renal length: 10.8 cm -Parenchyma: Normal parenchymal echogenicity. Normal parenchymal thickness. -Collecting system: No hydronephrosis. -Calculus: Small echogenic focus in the inferior kidney. -Lesion: None. Bladder: Normal sonographic appearance. IMPRESSION: Small echogenic focus in the left inferior kidney may represent a nonobstructing calculus. No hydronephrosis. Automotive Upholsterer: [facility] Transcribe Date/Time: Feb 05 2024 5:56P Dictated by : DIONE MORA MD This examination was interpreted and the report reviewed and electronically signed by: DIONE MORA MD on Feb 05 2024 5:59PM EST [id number] Normal [facility] US Kidney - bilateral and Ur inary bladderon 02-05-2024 [facility] Absolute lymphocyte countOrd ered By: Maame Bergman on 02-02-2024 Lymphocytes Auto (Unsp spec) [#/Vol] 1.37 10*3/uL 0.83-4.51 [facility] Automated lymphocyte count a s percentage of total leukocytesOrdered By: Maame Bergman on 02-02-2024 Lymphocytes/100 WBC Auto (Unsp spec) 24.0 % 19-41 [facility] Basophil percentageOrdered B y: Maame Bergman on 02-02-2024 Basophils/100 WBC (Bld) 0.5 % 0-1 [facility] Chloride [Moles/Vol] 103 mmol/L 98-107 [facility] Eosinophils/100 WBC (Bld) 2.3 % 0-5 [facility] Glucose [Mass/Vol] 86 mg/dL 74-106 [facility] Hemoglobin (Bld) [Mass/Vol] 9.7 g/dL 12.0-15.0 [facility] Monocytes/100 WBC (Bld) 11.1 % 0-10 [facility] Neutrophils (Bld) [#/Vol] 3.5 10*3/uL 2.0-7.7 [facility] Neutrophils/100 WBC (Bld) 61.4 % 47-70 [facility] Potassium [Moles/Vol] 3.7 mmol/L 3.5-5.1 [facility] Sodium [Moles/Vol] 137 mmol/L 136-145 [facility] WBC (Bld) [#/Vol] 5.7 10*3/uL 4.4-11.0 [facility] Determination of erythrocyte mean corpuscular volume (MCV)Ordered By: Maame Bergman on 02-02-2024 MCV (RBC) [Entitic vol] 90.8 fL 81-99 [facility] Erythrocyte distribution wid th ratioOrdered By: Maame Bergman on 02-02-2024 Erythrocyte distribution width (RBC) [Ratio] 12.5 % 11.6-14.6 [facility] Erythrocyte distribution wid th standard deviationOrdered By: Maame Madalyn on 02-02-2024 Erythrocyte distribution width (RBC) [Entitic vol] 41.5 fL 35.1-43.9 [facility] Hematocrit Auto (Bld) [Volum e fraction]Ordered By: Maame Bergman on 02-02-2024 Hematocrit (Bld) [Volume fraction] 29.5 % 37-47 [facility] Immature granulocytes/100 WB C Auto (Bld)Ordered By: Maame Bergman on 02-02-2024 Immature granulocytes/100 WBC (Bld) 0.700 % 0.0-0.9 [facility] Comment on above: IG% - Immature Granu locytes (promyelocytes, myelocytes and metamyelocytes) > 1% indicates that a LEFT SHIFT is Present. Laboratory - Chemistry and C hemistry - challengeOrdered By: Maame Bergman on 02-02-2024 CO2 [Moles/Vol] 29.0 mmol/L 21.0-32.0 [facility] Urea nitrogen/Creatinine [Mass ratio] 11.6 mg/mg 10-20 [facility] Laboratory - Hematology and Cell countsOrdered By: Maame Bergman on 02-02-2024 MCH (RBC) [Entitic mass] 29.8 pg 27.0-32.0 [facility] MCHC (RBC) [Mass/Vol] 32.9 g/dL 32-36 [facility] Nucleated RBC/100 WBC (Bld) [Ratio] 0 % 0-5 [facility] Platelet mean volume (Bld) [Entitic vol] 9.2 fL 6.2-12.0 [facility] Platelets (Bld) [#/Vol] 243 10*3/uL 150-450 [facility] No Panel InformationOrdered By: Maame Bergman on 02-02-2024 Estimated Creatinine Clearance Calc 96.69 ml/min [facility] Estimated GFR (MDRD) Amer 147 mL/min >60 [facility] Comment on above: GFR Calc Estimated GFR (MDRD) Non-Af Amer 122 mL/min >60 [facility] Comment on above: Non- GFR Calc RBC Auto (Bld) [#/Vol]Ordere d By: Maame Bergman on 02-02-2024 RBC (Bld) [#/Vol] 3.25 10*6/uL 4.2-5.4 [facility] Serum or plasma calcium angelica urement (mass/volume)Ordered By: Maame Bergman on 02-02-2024 Calcium [Mass/Vol] 8.3 mg/dL 8.5-10.1 [facility] Serum or plasma creatinine m easurement (mass/volume)Ordered By: Maame Bergman on 02-02-2024 Creatinine [Mass/Vol] 0.60 mg/dL 0.55-1.02 [facility] Comment on above: The validity of the calculated GFR & GFRAA in patients over 70 years has not been determined. Clinical correlation is essential. Serum or plasma urea nitroge n measurement (mass/volume)Ordered By: Maame Bergman on 02-02-2024 Urea nitrogen [Mass/Vol] 7 mg/dL 7-18 [facility] Thin prep Papanicolaou smear with manual screeningOrdered By: Maame Bergman on 02-02-2024 Thin prep Papanicolaou smear with manual screening 5 5-15 [facility] Serum or plasma trough vanco mycin levelOrdered By: Demetrius Ibanez on 02-01-2024 Vancomycin trough [Mass/Vol] 6.5 ug/mL 5.0-15.0 [facility] Comment on above: VANCOMYCIN STANDARED DRUG THERAPY TROUGH LEVEL: 5.0 - 15.0 mg/L VANCOMYCIN HIGH INTENSITY THERAPY TROUGH LEVEL: 15.0 - 20.0 mg/L High Intensity therapy recommended for serious lifethreatening infections include:- Auvkrtjsjf-Nehahqjirbtl-Qceafygqb (Ventilator/Healtcare Associated)-Sepsis PLEASE CONTACT PHARMACY SERVICES (#[id number]) FOR INTERPRETATIONOF RESULTS. Laboratory - CoagulationOrde red By: Demetrius Ibanez on 01-31-2024 INR Coag (Bld) [Relative time] 1.4 {INR} [facility] PT Coag (PPP) [Time] 17.0 s 11.7-14.9 [facility] Absolute lymphocyte countOrd ered By: Wild Pollard on 01-30-2024 Lymphocytes Auto (Unsp spec) [#/Vol] 0.51 10*3/uL 0.83-4.51 [facility] Activated partial thrombopla stin time (aPTT) in platelet poor plasma by coagulation aOrdered By: Wild Pollard on 01-30-2024 aPTT Coag (PPP) [Time] 38.8 s 24.1-36.2 [facility] Automated lymphocyte count a s percentage of total leukocytesOrdered By: Wild Pollard on 01-30-2024 Lymphocytes/100 WBC Auto (Unsp spec) 3.3 % 19-41 [facility] Basophil percentageOrdered B y: Wild Pollard on 01-30-2024 Lactate [Moles/Vol] 1.2 mmol/L 0.4-2.0 [facility] Basophil percentage 5-10 SEEN /hpf 0-5 [facility] Basophils/100 WBC (Bld) 0.2 % 0-1 [facility] Bilirubin [Mass/Vol] 0.40 mg/dL 0.20-1.00 [facility] Comment on above: For patients on eltr ombopag therapy, use of Dimension [place] TBIL is not recommended. Chloride [Moles/Vol] 104 mmol/L 98-107 [facility] Eosinophils/100 WBC (Bld) 0.1 % 0-5 [facility] Glucose [Mass/Vol] 121 mg/dL 74-106 [facility] Comment on above: Fasting Glucose resu lt from 100 to 125 mg/dL suggests IMPAIRED HOMEOSTASIS per A.D.A. criteria. Hemoglobin (Bld) [Mass/Vol] 11.1 g/dL 12.0-15.0 [facility] Monocytes/100 WBC (Bld) 7.9 % 0-10 [facility] Neutrophils (Bld) [#/Vol] 13.4 10*3/uL 2.0-7.7 [facility] Neutrophils/100 WBC (Bld) 87.8 % 47-70 [facility] Potassium [Moles/Vol] 3.9 mmol/L 3.5-5.1 [facility] Protein [Mass/Vol] 7.1 g/dL 6.4-8.2 [facility] Sodium [Moles/Vol] 136 mmol/L 136-145 [facility] WBC (Bld) [#/Vol] 15.3 10*3/uL 4.4-11.0 [facility] Bilirubin Test strip Ql (U)O rdered By: Wild Pollard on 01-30-2024 Bilirubin Ql (U) Negative Negative [facility] Culture, urineOrdered By: Morro Pollard on 01-30-2024 Bacteria identified Cx Nom (U) Presumptive E. coli [facility] Determination of erythrocyte mean corpuscular volume (MCV)Ordered By: Wild Pollard on 01-30-2024 MCV (RBC) [Entitic vol] 92.5 fL 81-99 [facility] Erythrocyte distribution wid th ratioOrdered By: Wild Pollard on 01-30-2024 Erythrocyte distribution width (RBC) [Ratio] 12.7 % 11.6-14.6 [facility] Erythrocyte distribution wid th standard deviationOrdered By: Wild Pollard on 01-30-2024 Erythrocyte distribution width (RBC) [Entitic vol] 43.1 fL 35.1-43.9 [facility] Hematocrit Auto (Bld) [Volum e fraction]Ordered By: Wild Pollard on 01-30-2024 Hematocrit (Bld) [Volume fraction] 33.4 % 37-47 [facility] Immature granulocytes/100 WB C Auto (Bld)Ordered By: Wild Pollard on 01-30-2024 Immature granulocytes/100 WBC (Bld) 0.700 % 0.0-0.9 [facility] Comment on above: IG% - Immature Granu locytes (promyelocytes, myelocytes and metamyelocytes) > 1% indicates that a LEFT SHIFT is Present. Iron measurement (mass/mass) Ordered By: Demetrius Ibanez on 01-30-2024 Iron (Unsp spec) [Mass/Mass] 14 ug/dL 50-170 [facility] Ketones Test strip Ql (U)Ord ered By: Wild Pollard on 01-30-2024 Ketones Ql (U) Negative Negative [facility] Laboratory - Chemistry and C hemistry - challengeOrdered By: Demetrius Ibanez on 01-30-2024 Cobalamin (Vitamin B12) [Mass/Vol] 219 pg/mL 211-911 [facility] Ferritin [Mass/Vol] 307 ng/mL 8-252 [facility] - Chemistry and C hemistry - challengeOrdered By: Wild Pollard on 01-30-2024 HCG ( test) Ql (U) Negative [facility] Comment on above: Very dilute urine sp ecimens, as indicated by a low specificgravity, may not contain sales representative wire rope levels of hCG. If is still suspected, a first morning urinespecimen should be collected 48 hours later and tested. Albumin/Globulin [Mass ratio] 0.7 {ratio} 0.9-2.4 [facility] ALP [Catalytic activity/Vol] 99 U/L 45-117 [facility] ALT [Catalytic activity/Vol] 17 U/L 13-56 [facility] CO2 [Moles/Vol] 26.0 mmol/L 21.0-32.0 [facility] Globulin (S) [Mass/Vol] 4.2 g/dL 2.2-4.2 [facility] Urea nitrogen/Creatinine [Mass ratio] 11.5 mg/mg 10-20 [facility] Laboratory - CoagulationOrde red By: Wild Pollard on 01-30-2024 INR Coag (Bld) [Relative time] 1.4 {INR} [facility] PT Coag (PPP) [Time] 17.3 s 11.7-14.9 [facility] Laboratory - Hematology and Cell countsOrdered By: Wild Pollard on 01-30-2024 MCH (RBC) [Entitic mass] 30.7 pg 27.0-32.0 [facility] MCHC (RBC) [Mass/Vol] 33.2 g/dL 32-36 [facility] Nucleated RBC/100 WBC (Bld) [Ratio] 0 % 0-5 [facility] Platelet mean volume (Bld) [Entitic vol] 9.0 fL 6.2-12.0 [facility] Platelets (Bld) [#/Vol] 213 10*3/uL 150-450 [facility] Laboratory - Microbiology an d Antimicrobial susceptibilityOrdered By: Wild Pollard on 01-30-2024 SARS-CoV-2 (COVID-19) RNA ALEX+probe Ql (Unsp spec) [facility] Mucus LM Ql (Urine sed)Order ed By: Wild Pollard on 01-30-2024 Mucus Ql (Urine sed) 1+ /hpf [facility] Nitrite Test strip Ql (U)Ord ered By: Wild Pollard on 01-30-2024 Nitrite Ql (U) Negative Negative [facility] No Panel InformationOrdered By: Wild Pollard on 01-30-2024 Urine RBC 0-5 SEEN /hpf 0-5 [facility] Estimated Creatinine Clearance Calc 70.44 ml/min [facility] Estimated GFR (MDRD) Amer 110 mL/min >60 [facility] Comment on above: GFR Calc Estimated GFR (MDRD) Non-Af Amer 91 mL/min >60 [facility] Comment on above: Non- GFR Calc No Panel InformationOrdered By: Demetrius Ibanez on 01-30-2024 Folate 17.10 ng/mL 3.1-55.4 [facility] Total Iron Binding Capacity 253 ug/dL 250-450 [facility] Protein Test strip Ql (U)Ord ered By: Wild Pollard on 01-30-2024 Protein Ql (U) 100 mg/dl Negative [facility] RBC Auto (Bld) [#/Vol]Ordere d By: Wild Pollard on 01-30-2024 RBC (Bld) [#/Vol] 3.61 10*6/uL 4.2-5.4 [facility] Serum or plasma calcium angelica urement (mass/volume)Ordered By: Wild Pollard on 01-30-2024 Calcium [Mass/Vol] 8.8 mg/dL 8.5-10.1 [facility] Serum or plasma creatinine m easurement (mass/volume)Ordered By: Wild Pollard on 01-30-2024 Creatinine [Mass/Vol] 0.78 mg/dL 0.55-1.02 [facility] Comment on above: The validity of the calculated GFR & GFRAA in patients over 70 years has not been determined. Clinical correlation is essential. Serum or plasma iron saturat ion measurement (mass fraction)Ordered By: Demetrius Ibanez on 01-30-2024 Iron saturation [Mass fraction] 5.5 % 15.0-55.0 [facility] Serum or plasma thyroid stim ulating hormone (TSH) measurement (units/volume)Ordered By: Demetrius Ibanez on 01-30-2024 TSH Qn 0.21 uIU/mL 0.358-3.74 [facility] Serum or plasma urea nitroge n measurement (mass/volume)Ordered By: Wild Pollard on 01-30-2024 Urea nitrogen [Mass/Vol] 9 mg/dL 7-18 [facility] Squamous epithelial cells de tection in urine sediment by light microscopyOrdered By: Wild Pollard on 01-30-2024 Epithelial cells.squamous LM Ql (Urine sed) 5-10 SEEN /hpf 5-10 [facility] Thin prep Papanicolaou smear with manual screeningOrdered By: Wild Pollard on 01-30-2024 Thin prep Papanicolaou smear with manual screening 2.9 g/dL 3.2-5.0 [facility] Thin prep Papanicolaou smear with manual screening 13 U/L 15-37 [facility] Thin prep Papanicolaou smear with manual screening 6 5-15 [facility] Urine blood detectionOrdered By: Wild Pollard on 01-30-2024 RBC Ql (U) 150 /ul Negative [facility] Urine clarityOrdered By: Tam Pollard on 01-30-2024 Clarity (U) Cloudy Clear [facility] Urine color determinationOrd ered By: Wild Pollard on 01-30-2024 Color (U) Yellow Yellow [facility] Urine glucose detectionOrder ed By: Wild Pollard on 01-30-2024 Glucose Ql (U) Normal mg/dl Normal [facility] Urine leukocyte esterase det ection by dipstickOrdered By: Wild Pollard on 01-30-2024 Leukocyte esterase Test strip Ql (U) 25 /ul Negative [facility] Urine pHOrdered By: Wild espino on 01-30-2024 pH (U) 6.5 [pH] 5.0 - 8.0 [facility] Urine sediment bacteria coun t by microscopy (number/high power field)Ordered By: Wild Pollard on 01-30-2024 Bacteria LM.HPF (Urine sed) [#/Area] 2 /[HPF] None Seen [facility] Urine specific gravity measu rementOrdered By: Wild Pollard on 01-30-2024 Specific gravity (U) [Rel density] 1.010 1.002-1.03 0 [facility] Urine urobilinogen measureme ntOrdered By: Wild Pollard on 01-30-2024 Urobilinogen Ql (U) Normal mg/dl Normal [facility] XR Cervical spine AP and Lat eral and obliqueon 01-21-2024 IMPRESSION: Straight ening of the cervical spine curvature. 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 DIVISION OF RADIOLOGY * * *Final Report* * * DATE OF EXAM: Jan 21 2024 3:47PM WOX [id number] - XR CERVICAL 4V AP/LAT/OBL / PROCEDURE REASON: multiple diagnoses * * * * Physician Interpretation * * * * EXAM TITLE: XR CERVICAL 4V AP/LAT/OBL EXAM DATE/TIME: 01/21/2024 3:47 PM COMPARISON: X-ray cervical spine on 09/01/2020 CLINICAL INDICATION/HISTORY: Pain in the upper extremity. TECHNIQUE: AP, lateral and oblique views of the cervical spine are presented. FINDINGS: No fractures or subluxations are noted. There is straightening of the cervical spine curvature. The disc spaces are well preserved. There is no significant osteophyte formation. The neural foramina are patent. The prevertebral soft tissues are normal. DIVISION OF RADIOLOGY Provider, Kenna Robby [facility] - 01/21/2024 * * *Final Report* * * DATE OF EXAM: Jan 21 2024 3:47PM WOX [id number] - XR CERVICAL 4V AP/LAT/OBL / PROCEDURE REASON: multiple diagnoses * * * * Physician Interpretation * * * * EXAM TITLE: XR CERVICAL 4V AP/LAT/OBL EXAM DATE/TIME: 01/21/2024 3:47 PM COMPARISON: X-ray cervical spine on 09/01/2020 CLINICAL INDICATION/HISTORY: Pain in the upper extremity. TECHNIQUE: AP, lateral and oblique views of the cervical spine are presented. FINDINGS: No fractures or subluxations are noted. There is straightening of the cervical spine curvature. The disc spaces are well preserved. There is no significant osteophyte formation. The neural foramina are patent. The prevertebral soft tissues are normal. IMPRESSION IMPRESSION: Straightening of the cervical spine curvature. Automotive Upholsterer: LYNDSAY Transcribe Date/Time: Jan 21 2024 5:19P Dictated by : GLENNA FRANCOIS MD This examination was interpreted and the report reviewed and electronically signed by: GLENNA FRANCOIS MD on Jan 21 2024 5:20PM EST [facility] Radiology Study observation (narrative) [facility] XR Cervical spine AP and Lat eral and obliqueOrdered By: [facility] Provider on 01-21-[address] [facility] [address] ABD/PEL W IVCONon 022 [facility] Absolute lymphocyte counton 05-10-2022 Lymphocytes Auto (Unsp spec) [#/Vol] 1.37 10*3/uL 0.83-4.51 [facility] Work Phone: Basophil percentageon 2021 Basophil percentage 0-5 SEEN /hpf 0-5 [facility] Work Phone: Basophils/100 WBC (Bld) 0.4 % 0-1 [facility] Work Phone: Bilirubin [Mass/Vol] 0.30 mg/dL 0.20-1.00 [facility] Work Phone: Comment on above: For patients on eltr ombopag therapy, use of Dimension [place] TBIL is not recommended. Chloride [Moles/Vol] 105 mmol/L 98-107 [facility] Work Phone: Eosinophils/100 WBC (Bld) 1.5 % 0-5 [facility] Work Phone: Glucose [Mass/Vol] 125 mg/dL 74-106 [facility] Work Phone: Comment on above: Fasting Glucose resu lt from 100 to 125 mg/dL suggests IMPAIRED HOMEOSTASIS per A.D.A. criteria. Neutrophils (Bld) [#/Vol] 2.9 10*3/uL 2.0-7.7 [facility] Work Phone: Neutrophils/100 WBC (Bld) 61.5 % 47-70 [facility] Work Phone: Potassium [Moles/Vol] 3.9 mmol/L 3.5-5.1 [facility] Work Phone: Protein [Mass/Vol] 8.2 g/dL 6.4-8.2 [facility] Work Phone: Sodium [Moles/Vol] 138 mmol/L 136-145 [facility] Work Phone: [phone] WBC (Bld) [#/Vol] 4.6 10*3/uL 4.4-11.0 [facility] Work Phone: Bilirubin Test strip Ql (U)o n 05-10-2022 Bilirubin Ql (U) Negative Negative [facility] Work Phone: Blood erythrocytes count (nu mber/volume)on 05-10-2022 RBC (Bld) [#/Vol] 4.80 10*6/uL 4.2-5.4 [facility] Work Phone: Blood hemoglobin measurement (mass/volume)on 05-10-2022 Hemoglobin (Bld) [Mass/Vol] 14.5 g/dL 12.0-15.0 [facility] Work Phone: Blood lymphocytes/100 leukoc yteson 05-10-2022 Lymphocytes/100 WBC (Bld) 29.5 % 19-41 [facility] Work Phone: Blood monocytes/100 leukocyt eson 05-10-2022 Monocytes/100 WBC (Bld) 6.9 % 0-10 [facility] Work Phone: Blood platelet mean volumeon 05-10-2022 Platelet mean volume (Bld) [Entitic vol] 9.1 fL 6.2-12.0 [facility] Work Phone: Determination of erythrocyte mean corpuscular volume (MCV)on 05-10-2022 MCV (RBC) [Entitic vol] 89.6 fL 81-99 [facility] Work Phone: Direct bilirubinon 2 Bilirubin.direct [Mass/Vol] 0.13 mg/dL 0.00-0.30 [facility] Work Phone: Hematocrit Auto (Bld) [Volum e fraction]on 05-10-2022 Hematocrit (Bld) [Volume fraction] 43.0 % 37-47 [facility] Work Phone: Ketones Test strip Ql (U)on 05-10-2022 Ketones Ql (U) Negative Negative [facility] Work Phone: Laboratory - Chemistry and C hemistry - challengeon 05-10-2022 ALP [Catalytic activity/Vol] 91 U/L 45-117 [facility] Work Phone: ALT [Catalytic activity/Vol] 35 U/L 13-56 [facility] Work Phone: CO2 [Moles/Vol] 29.0 mmol/L 21.0-32.0 [facility] Work Phone: Globulin (S) [Mass/Vol] 3.9 g/dL 2.2-4.2 [facility] Work Phone: Lipase [Catalytic activity/Vol] 59 U/L 73-393 [facility] Work Phone: Urea nitrogen/Creatinine [Mass ratio] 17.0 mg/mg 10-20 [facility] Work Phone: Laboratory - Hematology and Cell countson 05-10-2022 Erythrocyte distribution width (RBC) [Entitic vol] 40.6 fL 35.1-43.9 [facility] Work Phone: Erythrocyte distribution width (RBC) [Ratio] 12.5 % 11.6-14.6 [facility] Work Phone: Immature granulocytes/100 WBC (Bld) 0.200 % 0.0-0.9 [facility] Work Phone: Comment on above: IG% - Immature Granu locytes (promyelocytes, myelocytes and metamyelocytes) > 1% indicates that a LEFT SHIFT is Present. MCH (RBC) [Entitic mass] 30.2 pg 27.0-32.0 [facility] Work Phone: Nucleated RBC/100 WBC (Bld) [Ratio] 0 % 0-5 [facility] Work Phone: MCHC Auto (RBC) [Mass/Vol]on 05-10-2022 MCHC (RBC) [Mass/Vol] 33.7 g/dL 32-36 [facility] Work Phone: Mucus LM Ql (Urine sed)on Mucus Ql (Urine sed) 1+ /hpf [facility] Work Phone: Nitrite Test strip Ql (U)on 05-10-2022 Nitrite Ql (U) Negative Negative [facility] Work Phone: No Panel Informationon 05-10 Estimated Creatinine Clearance Calc 61.68 ml/min [facility] Work Phone: Estimated GFR (MDRD) Amer 83 mL/min >60 [facility] Work Phone: Comment on above: GFR Calc Estimated GFR (MDRD) Non-Af Amer 69 mL/min >60 [facility] Work Phone: Comment on above: Non- GFR Calc Platelets bldon 05-10-2022 Platelets (Bld) [#/Vol] 253 10*3/uL 150-450 [facility] Work Phone: Protein Test strip Ql (U)on 05-10-2022 Protein Ql (U) 15 mg/dl Negative [facility] Work Phone: Serum or plasma albumin angelica urement (mass/volume)on 05-10-2022 Albumin [Mass/Vol] 4.3 g/dL 3.2-5.0 [facility] Work Phone: Serum or plasma calcium angelica urement (mass/volume)on 05-10-2022 Calcium [Mass/Vol] 10.0 mg/dL 8.5-10.1 [facility] Work Phone: Serum or plasma creatinine m easurement (mass/volume)on 05-10-2022 Creatinine [Mass/Vol] 1.00 mg/dL 0.55-1.02 [facility] Work Phone: Comment on above: The validity of the calculated GFR & GFRAA in patients over 70 years has not been determined. Clinical correlation is essential. Serum or plasma urea nitroge n measurement (mass/volume)on 05-10-2022 Urea nitrogen [Mass/Vol] 17 mg/dL 7-18 [facility] Work Phone: Squamous epithelial cells de tection in urine sediment by light microscopyon 05-10-2022 Epithelial cells.squamous LM Ql (Urine sed) 0-5 SEEN /hpf 5-10 [facility] Work Phone: Thin prep Papanicolaou smear with manual screeningon 05-10-2022 Thin prep Papanicolaou smear with manual screening 19 U/L 15-37 [facility] Work Phone: Thin prep Papanicolaou smear with manual screening 4 5-15 [facility] Work Phone: Urine blood detectionon 04-13 RBC Ql (U) Negative Negative [facility] Work Phone: RBC Ql (U) 0 SEEN /hpf 0-5 [facility] Work Phone: Urine clarityon 05-10-2022 Clarity (U) Sl. Cloudy Clear [facility] Work Phone: Urine color determinationon 05-10-2022 Color (U) Yellow Yellow [facility] Work Phone: Urine glucose detectionon Glucose Ql (U) Normal mg/dl Normal [facility] Work Phone: Urine leukocyte esterase det ection by dipstickon 05-10-2022 Leukocyte esterase Test strip Ql (U) 25 /ul Negative [facility] Work Phone: Urine pHon 05-10-2022 pH (U) 6.0 [pH] 5.0 - 8.0 [facility] Work Phone: Urine sediment bacteria coun t by microscopy (number/high power field)on 05-10-2022 Bacteria LM.HPF (Urine sed) [#/Area] 2 /[HPF] None Seen [facility] Work Phone: Urine specific gravity measu rementon 05-10-2022 Specific gravity (U) [Rel density] 1.020 1.002-1.03 0 [facility] Work Phone: Urobilinogen Auto test strip Ql (U)on 05-10-2022 Urobilinogen Ql (U) Normal mg/dl Normal [facility] Work Phone: US KIDNEY/BLADDERon 04-26-[address] [facility] Basophil percentageon 2021 Basophil percentage 0 SEEN /hpf 0-5 [facility] Work Phone: Bilirubin Test strip Ql (U)o n 04-16-2022 Bilirubin Ql (U) Negative Negative [facility] Work Phone: Ketones Test strip Ql (U)on 04-16-2022 Ketones Ql (U) Negative Negative [facility] Work Phone: Mucus LM Ql (Urine sed)on Mucus Ql (Urine sed) RARE /hpf [facility] Work Phone: Nitrite Test strip Ql (U)on 04-16-2022 Nitrite Ql (U) Negative Negative [facility] Work Phone: Protein Test strip Ql (U)on 04-16-2022 Protein Ql (U) 15 mg/dl Negative [facility] Work Phone: Squamous epithelial cells de tection in urine sediment by light microscopyon 04-16-2022 Epithelial cells.squamous LM Ql (Urine sed) 0 SEEN /hpf 5-10 [facility] Work Phone: Urine blood detectionon RBC Ql (U) 10 /ul Negative [facility] Work Phone: RBC Ql (U) 0 SEEN /hpf 0-5 [facility] Work Phone: Urine clarityon 04-16-2022 Clarity (U) Clear Clear [facility] Work Phone: Urine color determinationon 04-16-2022 Color (U) Yellow Yellow [facility] Work Phone: Urine glucose detectionon Glucose Ql (U) Normal mg/dl Normal [facility] Work Phone: Urine leukocyte esterase det ection by dipstickon 04-16-2022 Leukocyte esterase Test strip Ql (U) Negative Negative [facility] Work Phone: Urine pHon 04-16-2022 pH (U) 6.0 [pH] 5.0 - 8.0 [facility] Work Phone: Urine sediment bacteria coun t by microscopy (number/high power field)on 04-16-2022 Bacteria LM.HPF (Urine sed) [#/Area] 0 /[HPF] None Seen [facility] Work Phone: Urine specific gravity measu rementon 04-16-2022 Specific gravity (U) [Rel density] 1.020 1.002-1.03 0 [facility] Work Phone: Urobilinogen Auto test strip Ql (U)on 04-16-2022 Urobilinogen Ql (U) Normal mg/dl Normal [facility] Work Phone: Absolute lymphocyte counton 02-13-2022 Lymphocytes Auto (Unsp spec) [#/Vol] 2.44 10*3/uL 0.83-4.51 [facility] Work Phone: Basophil percentageon 2021 Basophil percentage 0 SEEN /hpf 0-5 [facility] Work Phone: Basophils/100 WBC (Bld) 0.6 % 0-1 [facility] Work Phone: Chloride [Moles/Vol] 104 mmol/L 98-107 [facility] Work Phone: Eosinophils/100 WBC (Bld) 0.8 % 0-5 [facility] Work Phone: Glucose [Mass/Vol] 95 mg/dL 74-106 [facility] Work Phone: Neutrophils (Bld) [#/Vol] 2.4 10*3/uL 2.0-7.7 [facility] Work Phone: Neutrophils/100 WBC (Bld) 44.5 % 47-70 [facility] Work Phone: Potassium [Moles/Vol] 3.6 mmol/L 3.5-5.1 [facility] Work Phone: Sodium [Moles/Vol] 137 mmol/L 136-145 [facility] Work Phone: WBC (Bld) [#/Vol] 5.3 10*3/uL 4.4-11.0 [facility] Work Phone: Bilirubin Test strip Ql (U)o n 02-13-2022 Bilirubin Ql (U) Negative Negative [facility] Work Phone: Blood erythrocytes count (nu mber/volume)on 02-13-2022 RBC (Bld) [#/Vol] 4.54 10*6/uL 4.2-5.4 [facility] Work Phone: Blood hemoglobin measurement (mass/volume)on 02-13-2022 Hemoglobin (Bld) [Mass/Vol] 13.9 g/dL 12.0-15.0 [facility] Work Phone: Blood lymphocytes/100 leukoc yteson 02-13-2022 Lymphocytes/100 WBC (Bld) 45.8 % 19-41 [facility] Work Phone: Blood monocytes/100 leukocyt eson 02-13-2022 Monocytes/100 WBC (Bld) 8.1 % 0-10 [facility] Work Phone: Blood platelet mean volumeon 02-13-2022 Platelet mean volume (Bld) [Entitic vol] 9.3 fL 6.2-12.0 [facility] Work Phone: Culture, urineon 02-13-2022 Bacteria identified Cx Nom (U) Culture exhibits no growth. [facility] Work Phone: Determination of erythrocyte mean corpuscular volume (MCV)on 02-13-2022 MCV (RBC) [Entitic vol] 90.1 fL 81-99 [facility] Work Phone: Hematocrit Auto (Bld) [Volum e fraction]on 02-13-2022 Hematocrit (Bld) [Volume fraction] 40.9 % 37-47 [facility] Work Phone: Ketones Test strip Ql (U)on 02-13-2022 Ketones Ql (U) Negative Negative [facility] Work Phone: Laboratory - Chemistry and C hemistry - challengeon 02-13-2022 CO2 [Moles/Vol] 27.0 mmol/L 21.0-32.0 [facility] Work Phone: Urea nitrogen/Creatinine [Mass ratio] 11.7 mg/mg 10-20 [facility] Work Phone: Laboratory - Hematology and Cell countson 02-13-2022 Erythrocyte distribution width (RBC) [Entitic vol] 41.8 fL 35.1-43.9 [facility] Work Phone: Erythrocyte distribution width (RBC) [Ratio] 12.7 % 11.6-14.6 [facility] Work Phone: Immature granulocytes/100 WBC (Bld) 0.200 % 0.0-0.9 [facility] Work Phone: Comment on above: IG% - Immature Granu locytes (promyelocytes, myelocytes and metamyelocytes) > 1% indicates that a LEFT SHIFT is Present. MCH (RBC) [Entitic mass] 30.6 pg 27.0-32.0 [facility] Work Phone: Nucleated RBC/100 WBC (Bld) [Ratio] 0 % 0-5 [facility] Work Phone: MCHC Auto (RBC) [Mass/Vol]on 02-13-2022 MCHC (RBC) [Mass/Vol] 34.0 g/dL 32-36 [facility] Work Phone: Mucus LM Ql (Urine sed)on Mucus Ql (Urine sed) 0 SEEN /hpf [facility] Work Phone: Nitrite Test strip Ql (U)on 02-13-2022 Nitrite Ql (U) Negative Negative [facility] Work Phone: No Panel Informationon 02-13 Estimated Creatinine Clearance Calc 73.46 ml/min [facility] Work Phone: Estimated GFR (MDRD) Amer 100 mL/min >60 [facility] Work Phone: Comment on above: GFR Calc Estimated GFR (MDRD) Non-Af Amer 83 mL/min >60 [facility] Work Phone: Comment on above: Non- GFR Calc Platelets bldon 02-13-2022 Platelets (Bld) [#/Vol] 399 10*3/uL 150-450 [facility] Work Phone: Protein Test strip Ql (U)on 02-13-2022 Protein Ql (U) Negative Negative [facility] Work Phone: Serum or plasma calcium angelica urement (mass/volume)on 02-13-2022 Calcium [Mass/Vol] 9.6 mg/dL 8.5-10.1 [facility] Work Phone: Serum or plasma creatinine m easurement (mass/volume)on 02-13-2022 Creatinine [Mass/Vol] 0.85 mg/dL 0.55-1.02 [facility] Work Phone: Comment on above: The validity of the calculated GFR & GFRAA in patients over 70 years has not been determined. Clinical correlation is essential. Serum or plasma urea nitroge n measurement (mass/volume)on 02-13-2022 Urea nitrogen [Mass/Vol] 10 mg/dL 7-18 [facility] Work Phone: Squamous epithelial cells de tection in urine sediment by light microscopyon 02-13-2022 Epithelial cells.squamous LM Ql (Urine sed) 0-5 SEEN /hpf 5-10 [facility] Work Phone: Thin prep Papanicolaou smear with manual screeningon 02-13-2022 Thin prep Papanicolaou smear with manual screening 6 5-15 [facility] Work Phone: Urine blood detectionon 04- RBC Ql (U) Negative Negative [facility] Work Phone: RBC Ql (U) 0 SEEN /hpf 0-5 [facility] Work Phone: Urine clarityon 02-13-2022 Clarity (U) Clear Clear [facility] Work Phone: Urine color determinationon 02-13-2022 Color (U) Yellow Yellow [facility] Work Phone: Urine glucose detectionon Glucose Ql (U) Normal mg/dl Normal [facility] Work Phone: Urine leukocyte esterase det ection by dipstickon 02-13-2022 Leukocyte esterase Test strip Ql (U) Negative Negative [facility] Work Phone: Urine pHon 02-13-2022 pH (U) 7.0 [pH] 5.0 - 8.0 [facility] Work Phone: Urine sediment bacteria coun t by microscopy (number/high power field)on 02-13-2022 Bacteria LM.HPF (Urine sed) [#/Area] 0 /[HPF] None Seen [facility] Work Phone: Urine specific gravity measu rementon 02-13-2022 Specific gravity (U) [Rel density] 1.005 1.002-1.03 0 [facility] Work Phone: Urobilinogen Auto test strip Ql (U)on 02-13-2022 Urobilinogen Ql (U) Normal mg/dl Normal [facility] Work Phone: Absolute lymphocyte counton 02-05-2022 Lymphocytes Auto (Unsp spec) [#/Vol] 1.50 10*3/uL 0.83-4.51 [facility] Work Phone: Basophil percentageon 2021 Basophil percentage 0 SEEN /hpf 0-5 [facility] Work Phone: Basophils/100 WBC (Bld) 0.4 % 0-1 [facility] Work Phone: Bilirubin [Mass/Vol] 0.40 mg/dL 0.20-1.00 [facility] Work Phone: Comment on above: For patients on eltr ombopag therapy, use of Dimension [place] TBIL is not recommended. Chloride [Moles/Vol] 104 mmol/L 98-107 [facility] Work Phone: Eosinophils/100 WBC (Bld) 1.9 % 0-5 [facility] Work Phone: Glucose [Mass/Vol] 107 mg/dL 74-106 [facility] Work Phone: Comment on above: Fasting Glucose resu lt from 100 to 125 mg/dL suggests IMPAIRED HOMEOSTASIS per A.D.A. criteria. Lactate [Moles/Vol] 1.4 mmol/L 0.4-2.0 [facility] Work Phone: [phone] Neutrophils (Bld) [#/Vol] 2.9 10*3/uL 2.0-7.7 [facility] Work Phone: Neutrophils/100 WBC (Bld) 59.8 % 47-70 [facility] Work Phone: Potassium [Moles/Vol] 3.8 mmol/L 3.5-5.1 [facility] Work Phone: Comment on above: Moderate Hemolysis, Result may be falsely increased. Protein [Mass/Vol] 8.1 g/dL 6.4-8.2 [facility] Work Phone: Sodium [Moles/Vol] 139 mmol/L 136-145 [facility] Work Phone: [phone] WBC (Bld) [#/Vol] 4.9 10*3/uL 4.4-11.0 [facility] Work Phone: Bilirubin Test strip Ql (U)o n 02-05-2022 Bilirubin Ql (U) Negative Negative [facility] Work Phone: Blood erythrocytes count (nu mber/volume)on 02-05-2022 RBC (Bld) [#/Vol] 4.63 10*6/uL 4.2-5.4 [facility] Work Phone: Blood hemoglobin measurement (mass/volume)on 02-05-2022 Hemoglobin (Bld) [Mass/Vol] 14.2 g/dL 12.0-15.0 [facility] Work Phone: Blood lymphocytes/100 leukoc yteson 02-05-2022 Lymphocytes/100 WBC (Bld) 30.9 % 19-41 [facility] Work Phone: Blood monocytes/100 leukocyt eson 02-05-2022 Monocytes/100 WBC (Bld) 6.6 % 0-10 [facility] Work Phone: Blood platelet mean volumeon 02-05-2022 Platelet mean volume (Bld) [Entitic vol] 8.4 fL 6.2-12.0 [facility] Work Phone: Culture, urineon 02-05-2022 Bacteria identified Cx Nom (U) Culture exhibits no growth. [facility] Work Phone: Determination of erythrocyte mean corpuscular volume (MCV)on 02-05-2022 MCV (RBC) [Entitic vol] 90.9 fL 81-99 [facility] Work Phone: Hematocrit Auto (Bld) [Volum e fraction]on 02-05-2022 Hematocrit (Bld) [Volume fraction] 42.1 % 37-47 [facility] Work Phone: INR in Blood by Coagulation assayon 02-05-2022 INR Coag (Bld) [Relative time] 1.1 {INR} [facility] Work Phone: Ketones Test strip Ql (U)on 02-05-2022 Ketones Ql (U) Negative Negative [facility] Work Phone: Laboratory - Chemistry and C hemistry - challengeon 02-05-2022 ALP [Catalytic activity/Vol] 87 U/L 45-117 [facility] Work Phone: ALT [Catalytic activity/Vol] 108 U/L 13-56 [facility] Work Phone: CO2 [Moles/Vol] 30.0 mmol/L 21.0-32.0 [facility] Work Phone: Globulin (S) [Mass/Vol] 4.3 g/dL 2.2-4.2 [facility] Work Phone: Urea nitrogen/Creatinine [Mass ratio] 9.4 mg/mg 10-20 [facility] Work Phone: Laboratory - Coagulationon 0 02-05-2022 aPTT Coag (Bld) [Time] 31.4 s 24.1-36.2 [facility] Work Phone: PT Coag (PPP) [Time] 13.5 s 11.7-14.9 [facility] Work Phone: Laboratory - Hematology and Cell countson 02-05-2022 Erythrocyte distribution width (RBC) [Entitic vol] 41.6 fL 35.1-43.9 [facility] Work Phone: Erythrocyte distribution width (RBC) [Ratio] 12.9 % 11.6-14.6 [facility] Work Phone: Immature granulocytes/100 WBC (Bld) 0.400 % 0.0-0.9 [facility] Work Phone: Comment on above: IG% - Immature Granu locytes (promyelocytes, myelocytes and metamyelocytes) > 1% indicates that a LEFT SHIFT is Present. MCH (RBC) [Entitic mass] 30.7 pg 27.0-32.0 [facility] Work Phone: Nucleated RBC/100 WBC (Bld) [Ratio] 0 % 0-5 [facility] Work Phone: Laboratory - Microbiology an d Antimicrobial susceptibilityon 02-05-2022 Bacteria identified Cx Nom (Bld) No growth in 5 days. [facility] Work Phone: MCHC Auto (RBC) [Mass/Vol]on 02-05-2022 MCHC (RBC) [Mass/Vol] 33.7 g/dL 32-36 [facility] Work Phone: Mucus LM Ql (Urine sed)on Mucus Ql (Urine sed) 0 SEEN /hpf [facility] Work Phone: Nitrite Test strip Ql (U)on 02-05-2022 Nitrite Ql (U) Negative Negative [facility] Work Phone: No Panel Informationon 02-05 Estimated Creatinine Clearance Calc 76.92 ml/min [facility] Work Phone: Estimated GFR (MDRD) Amer 101 mL/min >60 [facility] Work Phone: Comment on above: GFR Calc Estimated GFR (MDRD) Non-Af Amer 83 mL/min >60 [facility] Work Phone: Comment on above: Non- GFR Calc Platelets bldon 02-05-2022 Platelets (Bld) [#/Vol] 481 10*3/uL 150-450 [facility] Work Phone: Protein Test strip Ql (U)on 02-05-2022 Protein Ql (U) Negative Negative [facility] Work Phone: Serum or plasma albumin angelica urement (mass/volume)on 02-05-2022 Albumin [Mass/Vol] 3.8 g/dL 3.2-5.0 [facility] Work Phone: Serum or plasma albumin/glob ulin mass ratioon 02-05-2022 Albumin/Globulin [Mass ratio] 0.9 {ratio} 0.9-2.4 [facility] Work Phone: Serum or plasma calcium angelica urement (mass/volume)on 02-05-2022 Calcium [Mass/Vol] 9.5 mg/dL 8.5-10.1 [facility] Work Phone: Serum or plasma creatinine m easurement (mass/volume)on 02-05-2022 Creatinine [Mass/Vol] 0.85 mg/dL 0.55-1.02 [facility] Work Phone: Comment on above: The validity of the calculated GFR & GFRAA in patients over 70 years has not been determined. Clinical correlation is essential. Serum or plasma urea nitroge n measurement (mass/volume)on 02-05-2022 Urea nitrogen [Mass/Vol] 8 mg/dL 7-18 [facility] Work Phone: Squamous epithelial cells de tection in urine sediment by light microscopyon 02-05-2022 Epithelial cells.squamous LM Ql (Urine sed) 0 SEEN /hpf 5-10 [facility] Work Phone: Thin prep Papanicolaou smear with manual screeningon 02-05-2022 Thin prep Papanicolaou smear with manual screening 41 U/L 15-37 [facility] Work Phone: Comment on above: Moderate Hemolysis, Result may be falsely increased. Thin prep Papanicolaou smear with manual screening 5 5-15 [facility] Work Phone: Urine blood detectionon - RBC Ql (U) Negative Negative [facility] Work Phone: RBC Ql (U) 0 SEEN /hpf 0-5 [facility] Work Phone: Urine clarityon 02-05-2022 Clarity (U) Clear Clear [facility] Work Phone: Urine color determinationon 02-05-2022 Color (U) Yellow Yellow [facility] Work Phone: Urine glucose detectionon Glucose Ql (U) Normal mg/dl Normal [facility] Work Phone: Urine leukocyte esterase det ection by dipstickon 02-05-2022 Leukocyte esterase Test strip Ql (U) Negative Negative [facility] Work Phone: Urine pHon 02-05-2022 pH (U) 8.0 [pH] 5.0 - 8.0 [facility] Work Phone: Urine sediment bacteria coun t by microscopy (number/high power field)on 02-05-2022 Bacteria LM.HPF (Urine sed) [#/Area] 0 /[HPF] None Seen [facility] Work Phone: Urine specific gravity measu rementon 02-05-2022 Specific gravity (U) [Rel density] 1.015 1.002-1.03 0 [facility] Work Phone: Urobilinogen Auto test strip Ql (U)on 02-05-2022 Urobilinogen Ql (U) Normal mg/dl Normal [facility] Work Phone: Absolute lymphocyte counton 01-28-2022 Lymphocytes Auto (Unsp spec) [#/Vol] 1.67 10*3/uL 0.83-4.51 [facility] Work Phone: Basophil percentageon 2021 Basophils/100 WBC (Bld) 0.3 % 0-1 [facility] Work Phone: Chloride [Moles/Vol] 109 mmol/L 98-107 [facility] Work Phone: Eosinophils/100 WBC (Bld) 0.5 % 0-5 [facility] Work Phone: Glucose [Mass/Vol] 91 mg/dL 74-106 [facility] Work Phone: Neutrophils (Bld) [#/Vol] 5.0 10*3/uL 2.0-7.7 [facility] Work Phone: [phone] Neutrophils/100 WBC (Bld) 65.0 % 47-70 [facility] Work Phone: [phone] Potassium [Moles/Vol] 3.7 mmol/L 3.5-5.1 [facility] Work Phone: Sodium [Moles/Vol] 139 mmol/L 136-145 [facility] Work Phone: WBC (Bld) [#/Vol] 7.6 10*3/uL 4.4-11.0 [facility] Work Phone: [phone] Blood erythrocytes count (nu mber/volume)on 01-28-2022 RBC (Bld) [#/Vol] 3.19 10*6/uL 4.2-5.4 [facility] Work Phone: Blood hemoglobin measurement (mass/volume)on 01-28-2022 Hemoglobin (Bld) [Mass/Vol] 9.6 g/dL 12.0-15.0 [facility] Work Phone: Blood lymphocytes/100 leukoc yteson 01-28-2022 Lymphocytes/100 WBC (Bld) 21.9 % 19-41 [facility] Work Phone: Blood monocytes/100 leukocyt eson 01-28-2022 Monocytes/100 WBC (Bld) 12.0 % 0-10 [facility] Work Phone: Blood platelet mean volumeon 01-28-2022 Platelet mean volume (Bld) [Entitic vol] 9.6 fL 6.2-12.0 [facility] Work Phone: Determination of erythrocyte mean corpuscular volume (MCV)on 01-28-2022 MCV (RBC) [Entitic vol] 88.4 fL 81-99 [facility] Work Phone: Hematocrit Auto (Bld) [Volum e fraction]on 01-28-2022 Hematocrit (Bld) [Volume fraction] 28.2 % 37-47 [facility] Work Phone: Laboratory - Chemistry and C hemistry - challengeon 01-28-2022 CO2 [Moles/Vol] 26.0 mmol/L 21.0-32.0 [facility] Work Phone: Urea nitrogen/Creatinine [Mass ratio] 7.7 mg/mg 10-20 [facility] Work Phone: Laboratory - Hematology and Cell countson 01-28-2022 Erythrocyte distribution width (RBC) [Entitic vol] 41.2 fL 35.1-43.9 [facility] Work Phone: Erythrocyte distribution width (RBC) [Ratio] 12.7 % 11.6-14.6 [facility] Work Phone: Immature granulocytes/100 WBC (Bld) 0.300 % 0.0-0.9 [facility] Work Phone: Comment on above: IG% - Immature Granu locytes (promyelocytes, myelocytes and metamyelocytes) > 1% indicates that a LEFT SHIFT is Present. MCH (RBC) [Entitic mass] 30.1 pg 27.0-32.0 [facility] Work Phone: Nucleated RBC/100 WBC (Bld) [Ratio] 0 % 0-5 [facility] Work Phone: MCHC Auto (RBC) [Mass/Vol]on 01-28-2022 MCHC (RBC) [Mass/Vol] 34.0 g/dL 32-36 [facility] Work Phone: No Panel Informationon 01-28 Estimated Creatinine Clearance Calc 126.36 ml/min [facility] Work Phone: Estimated GFR (MDRD) Amer 179 mL/min >60 [facility] Work Phone: Comment on above: GFR Calc Estimated GFR (MDRD) Non-Af Amer 148 mL/min >60 [facility] Work Phone: Comment on above: Non- GFR Calc Platelets bldon 01-28-2022 Platelets (Bld) [#/Vol] 152 10*3/uL 150-450 [facility] Work Phone: Serum or plasma calcium angelica urement (mass/volume)on 01-28-2022 Calcium [Mass/Vol] 8.3 mg/dL 8.5-10.1 [facility] Work Phone: Serum or plasma creatinine m easurement (mass/volume)on 01-28-2022 Creatinine [Mass/Vol] 0.52 mg/dL 0.55-1.02 [facility] Work Phone: Comment on above: The validity of the calculated GFR & GFRAA in patients over 70 years has not been determined. Clinical correlation is essential. Serum or plasma urea nitroge n measurement (mass/volume)on 01-28-2022 Urea nitrogen [Mass/Vol] 4 mg/dL 7-18 [facility] Work Phone: Thin prep Papanicolaou smear with manual screeningon 01-28-2022 Thin prep Papanicolaou smear with manual screening 4 5-15 [facility] Work Phone: Basophil percentageon 2021 Bilirubin [Mass/Vol] 0.70 mg/dL 0.20-1.00 [facility] Work Phone: Comment on above: For patients on eltr ombopag therapy, use of Dimension [place] TBIL is not recommended. Lactate [Moles/Vol] 1.4 mmol/L 0.4-2.0 [facility] Work Phone: Protein [Mass/Vol] 8.3 g/dL 6.4-8.2 [facility] Work Phone: Basophil percentage 25-50 SEEN /hpf 0-5 [facility] Work Phone: Bilirubin Test strip Ql (U)o n 01-26-2022 Bilirubin Ql (U) Negative Negative [facility] Work Phone: Culture, urineon 01-26-2022 Bacteria identified Cx Nom (U) Presumptive E. coli [facility] Work Phone: Ketones Test strip Ql (U)on 01-26-2022 Ketones Ql (U) 5 mg/dl Negative [facility] Work Phone: Laboratory - Chemistry and C hemistry - challengeon 01-26-2022 ALP [Catalytic activity/Vol] 102 U/L 45-117 [facility] Work Phone: ALT [Catalytic activity/Vol] 40 U/L 13-56 [facility] Work Phone: Globulin (S) [Mass/Vol] 4.2 g/dL 2.2-4.2 [facility] Work Phone: Laboratory - Microbiology an d Antimicrobial susceptibilityon 01-26-2022 Bacteria identified Cx Nom (Bld) No growth in 5 days. [facility] Work Phone: Mucus LM Ql (Urine sed)on Mucus Ql (Urine sed) 0 SEEN /hpf [facility] Work Phone: Nitrite Test strip Ql (U)on 01-26-2022 Nitrite Ql (U) Negative Negative [facility] Work Phone: Protein Test strip Ql (U)on 01-26-2022 Protein Ql (U) 100 mg/dl Negative [facility] Work Phone: Serum or plasma albumin angelica urement (mass/volume)on 01-26-2022 Albumin [Mass/Vol] 4.1 g/dL 3.2-5.0 [facility] Work Phone: Serum or plasma albumin/glob ulin mass ratioon 01-26-2022 Albumin/Globulin [Mass ratio] 1.0 {ratio} 0.9-2.4 [facility] Work Phone: Squamous epithelial cells de tection in urine sediment by light microscopyon 01-26-2022 Epithelial cells.squamous LM Ql (Urine sed) 0-5 SEEN /hpf 5-10 [facility] Work Phone: Thin prep Papanicolaou smear with manual screeningon 01-26-2022 Thin prep Papanicolaou smear with manual screening 16 U/L 15-37 [facility] Work Phone: Urine blood detectionon 01-10 RBC Ql (U) 25 /ul Negative [facility] Work Phone: RBC Ql (U) 0-5 SEEN /hpf 0-5 [facility] Work Phone: Urine clarityon 01-26-2022 Clarity (U) Sl. Cloudy Clear [facility] Work Phone: Urine color determinationon 01-26-2022 Color (U) Yellow Yellow [facility] Work Phone: Urine glucose detectionon Glucose Ql (U) Normal mg/dl Normal [facility] Work Phone: Urine leukocyte esterase det ection by dipstickon 01-26-2022 Leukocyte esterase Test strip Ql (U) 500 /ul Negative [facility] Work Phone: Urine pHon 01-26-2022 pH (U) 6.0 [pH] 5.0 - 8.0 [facility] Work Phone: Urine sediment bacteria coun t by microscopy (number/high power field)on 01-26-2022 Bacteria LM.HPF (Urine sed) [#/Area] 1 /[HPF] None Seen [facility] Work Phone: Urine specific gravity measu rementon 01-26-2022 Specific gravity (U) [Rel density] 1.015 1.002-1.03 0 [facility] Work Phone: Urobilinogen Auto test strip Ql (U)on 01-26-2022 Urobilinogen Ql (U) Normal mg/dl Normal [facility] Work Phone: CR Hand Complete 3+ Views See kelly 08-08-2021 CR Hand Complete 3+ Views Right Patient Name: LANIE LISA [facility] ACCESSION EXAM DATE/TIME PROCEDURE ORDERING PROVIDER [id number] 08/08/2021 20:53 EDT CR Hand Complete 3+ [id number] -ADEOLA VOGEL Right CPT code 61170 Reason For Exam (CR Hand Complete 3+ Views Right) 5th MTP pain s/p punching injury Report EXAMINATION: Right hand three views INDICATION: 5th MTP pain s/p punching injury FINDINGS: Anteriorly angulated fracture of the fifth metacarpal neck is present with mild soft tissue swelling. The joint spaces are grossly maintained. 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 The remaining soft tissues are grossly unremarkable. IMPRESSION: Anteriorly angulated fracture of the fifth metacarpal neck. Report Dictated on Workstation: [id number] Final Dictating Physician: MD CARRASCO KRIKOR Signed Date and Time: 08/08/2021 8:58 pm Signed by: MD CARRASCO KRIKOR Transcribed Date and Time: 08/08/2021 8:59 Normal [facility] XR HAND RIGHT (MIN 3 VIEWS)O rdered By: Adeola Vogel on 08-08-2021 Patient Name: LANIE LISA [facility] ACCESSION EXAM DATE/TIME PROCEDURE ORDERING PROVIDER [id number] 08/08/2021 20:53 EDT CR Hand Complete 3+ [id number] -ADEOLA VOGEL Right CPT code 07460 Reason For Exam (CR Hand Complete 3+ Views Right) 5th MTP pain s/p punching injury Report EXAMINATION: Right hand three views INDICATION: 5th MTP pain s/p punching injury FINDINGS: Anteriorly angulated fracture of the fifth metacarpal neck is present with mild soft tissue swelling. The joint spaces are grossly maintained. 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 The remaining soft tissues are grossly unremarkable. IMPRESSION: Anteriorly angulated fracture of the fifth metacarpal neck. Report Dictated on Workstation: [employer] --- Final --- Dictating Physician: MD CARRASCO KRIKOR Signed Date and Time: 08/08/2021 8:58 pm Signed by: MD CARRASCO KRIKOR Transcribed Date and Time: 08/08/2021 8:59 [facility] Work Phone: [place] Incoming [facility] Results From [facility] - 08/08/2021 8:59 PM EDT Patient Name: LANIE LISA Diagnostic Radiology ACCESSION EXAM DATE/TIME PROCEDURE ORDERING PROVIDER [id number] 08/08/2021 20:53 EDT CR Hand Complete 3+ [id number] -PALLACI, ADEOLA Views Right CPT code 83897 Reason For Exam (CR Hand Complete 3+ Views Right) 5th MTP pain s/p punching injury Report EXAMINATION: Right hand three views INDICATION: 5th MTP pain s/p punching injury FINDINGS: Anteriorly angulated fracture of the fifth metacarpal neck is present with mild soft tissue swelling. The joint spaces are grossly maintained. 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 The remaining soft tissues are grossly unremarkable. IMPRESSION: Anteriorly angulated fracture of the fifth metacarpal neck. Report Dictated on Workstation: [employer] --- Final --- Dictating Physician: MD CARRASCO KRIKOR Signed Date and Time: 08/08/2021 8:58 pm Signed by: MD CARRASCO KRIKOR Transcribed Date and Time: 08/08/2021 8:59 [facility] Work Phone: [facility] Work Phone: [facility] 06-02-2021 EMERGENCY PHYSICIAN REPORT This is a preliminary report only, as the practitioner review and authentication has not occurred. Normal [facility] [place] PHYSICIAN ASSESSMENT RECORDS : [place]a Event Time: 06/16/2021 15:55 ELP Status: Draft [facility] Lanie Lisa [[id number]] Mid-Level Addendum 1991 (V2b) Chart created at 06/16/2021 15:50 by Ladi Winston Chart closed at 06/16/2021 15:50 Entry in Emergency Department at 06/02/2021 10:37, departure at 06/02/2021 12:07 Patient Name: Lanie Lisa Record Number: [id number] Date: 06/16/2021 15:50 Entered Department at: 06/02/2021 10:37 Patient Seen at: 06/02/2021 11:35 PCP: JERI Chief Complaint:C/O LEFT ARM INJURY THAT HAPPENED YESTERDAY. PT REPORTS RIGHT WRIST INJURY AFTER TRYING TO DO A BACK FLIP. NO SWELLING NOTED. PT ABLE TO WIGGLE FINGERS. PT DENIES COVID. Physician Performed Procedures Splint on 06/16/2021: Sprain. Right. Cock-up splint. Physician Exam After Splint Application, Good Alignment, NVT intact, Splint applied by Physician/tech. Pending co-signature: Georgie Dunbar : [employer] [facility] PATIENT NAME: LANIE LISA [address] [place] MEDICAL REC #: [id number] [place] [address] EMERGENCY DEPARTMENT REPORT EMERGENCY DEPARTMENT PHYSICIAN Event Time: 06/02/2021 12:25 KMK Status: Signed [facility] Lanie Lisa [[id number]] Attending Physician 1990 Chart (V2b) Chart created at 06/02/2021 11:50 by Georgie Dunbar Chart closed at 06/02/2021 11:50 Entry in Emergency Department at 06/02/2021 10:37, departure at 06/02/2021 12:07 Patient Name: Lanie Lisa Record Number: [id number] Date: 06/02/2021 11:50 Entered Department at: 06/02/2021 10:37 Patient Seen at: 06/02/2021 11:35 PCP: Jeri Chief Complaint:C/O LEFT ARM INJURY THAT HAPPENED YESTERDAY. PT REPORTS RIGHT WRIST INJURY AFTER TRYING TO DO A BACK FLIP. NO SWELLING NOTED. PT ABLE TO WIGGLE FINGERS. PT DENIES COVID. MSE completed. I was the primary ED attending.. I confirm that I have reviewed the mid-level providers documentation and agree with the evaluation, plan of care and disposition.. : Discharge Report Event Time: 06/02/2021 11:45 KMK : Shireen Event Time: 06/02/2021 11:45 ELP Status: Draft [facility] Lanie Lisa [[id number]] Mid-Level Chart (V2b) 1990 [facility] PATIENT NAME: LANIE LISA [address] [place] MEDICAL REC #: [id number] [place] [address] EMERGENCY DEPARTMENT REPORT EMERGENCY DEPARTMENT PHYSICIAN Chart created at 06/02/2021 11:42 by Ladi Winston Chart closed at 06/02/2021 11:44 Entry in Emergency Department at 06/02/2021 10:37 Patient Name: Lanie Lisa Record Number: [id number] Date: 06/02/2021 11:42 Entered Department at: 06/02/2021 10:37 Patient Seen at: 06/02/2021 11:35 Historian: Patient PCP: JERI Chief Complaint:C/O LEFT ARM INJURY THAT HAPPENED YESTERDAY. PT REPORTS RIGHT WRIST INJURY AFTER TRYING TO DO A BACK FLIP. NO SWELLING NOTED. PT ABLE TO WIGGLE FINGERS. PT DENIES COVID. Nursing triage/initial assessment reviewed and confirmed and Initial Vital Signs reviewed. Temperature: 98.2 F (36.8 C). Pulse: 67. Respiratory Rate: 14. Blood-pressure: 109/77. Oxygen Saturation: 99%. History of Present Illness: Patient is a 30-year-old female who presents with right wrist pain. She was doing a back flip yesterday and felt a crack in her wrist. Denies elbow or hand pain. No paresthesia. He did not hit her head no other complaints at this time peer HPI Elements: Associated symptoms: See HPI. Review of Systems. All other systems reviewed and negative.. Past History, Medications, Allergies, Social History and Family History reviewed in nurses note. Medications: Reviewed RN Note. MOBIC 15MG TABLET - PO Allergies: Reviewed RN Note No Known Allergies [facility] PATIENT NAME: LANIE LISA [address] [place] MEDICAL REC #: [id number] [place] [address] EMERGENCY DEPARTMENT REPORT EMERGENCY DEPARTMENT PHYSICIAN Social History: Reviewed RN Note. Family History: Reviewed RN Note Physical Examination: General: Alert and Well Developed; Patient lying complaint exam table. No acute distress. Of his questions in full sentences. Nontoxic-appearing. HEENT: Normal ENT inspection. Eyes: Lids Normal; . Respiratory: No Resp Distress and Normal Breath Sounds Cardio-Vascular: No murmur, No rub and RRR Extremity: No edema and Normal Equal pulses; 2 pulse +2. Equal strength wit (more content not included)... Normal [facility] WRIST MIN 3 VWS COMP RTon WRIST MIN 3 VWS COMP RT WRIST MIN 3 VWS COMP RT Ordering Physician: Ayleen Encinas 06/02/2021 11:00 AM RIGHT WRIST 5 VIEWS Clinical Statement: Pain, injury Comparison: None FINDINGS: There is no acute fracture or dislocation. 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 Soft tissues are unremarkable. IMPRESSION: No acute osseous abnormality. ---- Electronic Signature on File ---- Signed By: Guera Schmitt MD [email or web address] Dictated: 06/02/2021 11:19 AM Signed: 06/02/2021 11:21 AM Reported By: GUERA SCHMITT M.D. Signed By: GUERA SCHMITT M.D. Normal [facility] LIVER 03-28-2021 Albumin [Mass/Vol] 4.4 g/dL Normal 3.2-5.0 [facility] Comment on above: Performed By: #### L [id number] #### [facility] [address] [place] [address] Albumin/Globulin [Mass ratio] 1.6 {ratio} Normal 0.8-2.0 [facility] Comment on above: Performed By: #### L [id number] #### [facility] [address] [place] [address] ALK PHOS 75 U/L Normal 45-117 [facility] Comment on above: Performed By: #### L [id number] #### [facility] [address] [place] [address]122 ALT [Catalytic activity/Vol] 30 U/L Normal 13-61 [facility] Comment on above: Result Comment: RESU LTS MAY BE FALSELY DEPRESSED AFTER THE ADMINISTRATION OF SULFASALAZINE AND/OR SULFAPYRIDINE. Performed By: #### L [id number] #### [facility] [address] [place] [address]134 AST [Catalytic activity/Vol] 24 U/L Normal 8-34 [facility] Comment on above: Result Comment: RESU LTS MAY BE FALSELY DEPRESSED AFTER THE ADMINISTRATION OF SULFASALAZINE AND/OR SULFAPYRIDINE. Performed By: #### L [id number] #### [facility] [address] [place], [place] [id number] BILI DIRECT 0.1 MG/DL Normal 0.00-0.36 [facility] Comment on above: Result Comment: NOTE NEW NORMAL RANGE DUE TO REAGENT CHANGE Performed By: #### L 500.19766 #### [facility] [address] [place] [address] BILI TOTAL 0.40 MG/DL Normal 0.2-1.0 [facility] Comment on above: Performed By: #### L 500.05069 #### [facility] [address] [place] [address]22 Globulin (S) [Mass/Vol] 2.7 g/dL Normal 2.2-4.2 [facility] Comment on above: Performed By: #### L 500.78743 #### [facility] [address] [place], [place] [id number] Protein [Mass/Vol] 7.1 g/dL Normal 6.0-8.5 [facility] Comment on above: Performed By: #### L 500.88218 #### [facility] [address] [place] [address] 60562 CR Chest Portableon 12-26-19 21 CR Chest Portable Patient Name: LANIE LISA Diagnostic Radiology ACCESSION EXAM DATE/TIME PROCEDURE ORDERING PROVIDER [id number] 12/26/2020 13:50 EST CR Chest Portable [id number] CHAPARRO CPT code 22064 Reason For Exam (CR Chest Portable) sob Report EXAM TYPE: RADIOLOGIC EXAMINATION, CHEST, SINGLE VIEW FRONTAL (CXR SINGLE VIEW) EXAM DATE AND TIME: 12/26/2020 1:50 PM EST INDICATION: Respiratory distress COMPARISON: 07/21/2019 TECHNIQUE: A single frontal view of the thorax was obtained and reviewed. Special views: None. IMPRESSION: 1. Lines/Tubes/Devices/Hardwar e: None. Please confirm position/function of devices/catheters clinically. 2. Lungs: No consolidation or pulmonary edema. 3. Pleura: No significant effusion. No significant pneumothorax. 4. Heart and mediastinum: Limited due to technique. 5. Upper abdomen: No acute process seen. 6. Thorax:No acute bony process Report Dictated on Final Dictating Physician: MD PAREKH JOHN Signed Date and Time: 12/26/2020 1:56 pm Signed by: MD PAREKH JOHN Transcribed Date and Time: 12/26/2020 1:57 Normal [facility] XR CHEST PORTABLEon 12-26-19 [id number] ACCESSION EXAM DATE/TIME PROCEDURE ORDERING PROVIDER [id number] 12/26/2020 13:50 EST CR Chest Portable ADEOLA SANDOVAL CPT code 62696 Reason For Exam (CR Chest Portable) sob Report EXAM TYPE: RADIOLOGIC EXAMINATION, CHEST, SINGLE VIEW FRONTAL (CXR SINGLE VIEW) EXAM DATE AND TIME: 12/26/2020 1:50 PM EST INDICATION: Respiratory distress COMPARISON: 07/21/2019 TECHNIQUE: A single frontal view of the thorax was obtained and reviewed. Special views: None. IMPRESSION: 1. Lines/Tubes/Devices/Hardwar e: None. Please confirm position/function of devices/catheters clinically. 2. Lungs: No consolidation or pulmonary edema. 3. Pleura: No significant effusion. No significant pneumothorax. 4. Heart and mediastinum: Limited due to technique. 5. Upper abdomen: No acute process seen. 6. Thorax:No acute bony process Report Dictated on --- Final --- Dictating Physician: MD PAREKH JOHN Signed Date and Time: 12/26/2020 1:56 pm Signed by: MD PAREKH JOHN Transcribed Date and Time: 12/26/2020 1:57 [facility] Work Phone: [place] Results From [facility] - 12/26/2020 1:57 PM EST Patient Name: LANIE LISA [facility]#: [id number] Diagnostic Radiology ACCESSION EXAM DATE/TIME PROCEDURE ORDERING PROVIDER [id number] 12/26/2020 13:50 EST CR Chest Portable [id number] ADEOLA ANDERSON CPT code 10563 Reason For Exam (CR Chest Portable) sob Report EXAM TYPE: RADIOLOGIC EXAMINATION, CHEST, SINGLE VIEW FRONTAL (CXR SINGLE VIEW) EXAM DATE AND TIME: 12/26/2020 1:50 PM EST INDICATION: Respiratory distress COMPARISON: 07/21/2019 TECHNIQUE: A single frontal view of the thorax was obtained and reviewed. Special views: None. IMPRESSION: 1. Lines/Tubes/Devices/Hardwar e: None. Please confirm position/function of devices/catheters clinically. 2. Lungs: No consolidation or pulmonary edema. 3. Pleura: No significant effusion. No significant pneumothorax. 4. Heart and mediastinum: Limited due to technique. 5. Upper abdomen: No acute process seen. 6. Thorax:No acute bony process Report Dictated on --- Final --- Dictating Physician: MD PAREKH JOHN Signed Date and Time: 12/26/2020 1:56 pm Signed by: MD PAREKH JOHN Transcribed Date and Time: 12/26/2020 1:57 [facility] Work Phone: No Panel Informationon 09-01 IMPRESSION: 1. Possible cervical muscle spasm, otherwise negative Automotive Upholsterer: PSCB Transcribe Date/Time: Sep 01 2020 9:42P Dictated by : DOMENICA STORM MD This examination was interpreted and the report reviewed and electronically signed by: DOMENICA STORM MD on Sep 01 2020 9:43PM EST DIVISION OF RADIOLOGY Radiology Study observation (narrative) [facility] No Panel InformationOrdered By: [facility] Provider on 09-01-2020 [facility] XR Cervical spine AP and Lat eral and obliqueon 09-01-2020 * * *Final Report* * * DATE OF EXAM: Sep 01 2020 6:10PM WOX [id number] - XR CERVICAL 4V AP/LAT/OBL / PROCEDURE REASON: multiple diagnoses * * * * Physician Interpretation * * * * PROCEDURE: Cervical and thoracic spines INDICATION: Neck pain Acute left-sided thoracic back pain .pt states was at a trampoline place in Jul. and was doing flips and she heard a pop in her neck. Has pain more right sided and on both sides of the entire thoracic area TECHNIQUE: XR CERVICAL 4V AP/LAT/OBL, XR THORACIC 3V AP/LAT/SWIMMERS COMPARISON: 11/23/2017 FINDINGS: Cervical spine: Straightening of the spine suggesting muscle spasm. No fracture or subluxation. Disc spaces and neural foramina are maintained. Prevertebral soft tissues are within normal limits. Thoracic spine: Minimal scoliotic curvature without fracture or subluxation. Disc spaces are maintained. No pedicle erosion or paraspinal abnormality. DIVISION OF RADIOLOGY Provider, [facility] - 09/01/2020 * * *Final Report* * * DATE OF EXAM: Sep 01 2020 6:10PM WOX [id number] - XR CERVICAL 4V AP/LAT/OBL / PROCEDURE REASON: multiple diagnoses * * * * Physician Interpretation * * * * PROCEDURE: Cervical and thoracic spines INDICATION: Neck pain Acute left-sided thoracic back pain .pt states was at a trampoline place in Jul. and was doing flips and she heard a pop in her neck. Has pain more right sided and on both sides of the entire thoracic area TECHNIQUE: XR CERVICAL 4V AP/LAT/OBL, XR THORACIC 3V AP/LAT/SWIMMERS COMPARISON: 11/23/2017 FINDINGS: Cervical spine: Straightening of the spine suggesting muscle spasm. No fracture or subluxation. Disc spaces and neural foramina are maintained. Prevertebral soft tissues are within normal limits. Thoracic spine: Minimal scoliotic curvature without fracture or subluxation. Disc spaces are maintained. No pedicle erosion or paraspinal abnormality. IMPRESSION IMPRESSION: 1. Possible cervical muscle spasm, otherwise negative Automotive Upholsterer: LYNDSAY Transcribe Date/Time: Sep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 Use Screening; Status:Complete; Done: 05May2019 Perform:Not Applicable;Ordered; For:SocHx: Current smoker; Ordered By:Jeanne Mays; Tobacco Use Screening; Status:Complete; Done: 05May2019 Perform:Not Applicable;Ordered; For:SocHx: Current smoker; Ordered By:Liza Hill; Patient Discussion/Summary 1. The differential diagnosis of the patients symptoms was discussed, and a colonoscopy and upper endoscopy were recommended. The procedures and sedation were discussed including but not limited to risks of bleeding, perforation, missed polyps, damage to other organs, and reaction to medication including cardiopulmonary events. The office endoscopy forms were reviewed and signed. All of the patients questions were answered. The patient was instructed on not being able to drive the day of the exam after being sedated. 2. The patient appears medically stable for sedation and endoscopy. 3. Obtain CBC, CMP, TSH, and celiac serology. Will also obtain stool culture/C diff. 4. Start omeprazole 40 mg once daily on an empty stomach. Lifestyle changes to help alleviate heartburn/reflux were discussed. These include avoiding spicy and greasy foods, tomato based products, mint and caffeine. Alcohol and smoking should be avoided. Patient should keep at least 3 hours between eating and going to sleep. Being of a normal weight helps decrease heartburn symptoms. 5. May take Zofran 4 mg every 6 hours as needed for nausea and vomiting. 6. Start dicyclomine 10 mg every 6 hours as needed for bowel spasm. 7. It is medically recommended that you stop smoking. There are several options available to you to assist in quitting. You can try [id number] nicotine patches or gum. You can also speak with your primary care physician about medication options. 8. Advised to become established with a PCP. Normal [facility] Culture, urine Bacteria identified Cx Nom (U) Presumptive E. coli [facility] Work Phone: Bacteria identified Cx Nom (U) Culture exhibits no growth. [facility] Work Phone: Laboratory - Microbiology an d Antimicrobial susceptibility Bacteria identified Cx Nom (Bld) No growth in 5 days. [facility] Work Phone: Vital Signs Date Time Vital Sign Value Performing Clinician Facility 07-07-2025 09:57-0400 Body mass index (BMI) [Ratio] 16.48 kg/m2 Vaughn Shrestha APRN.CNS Work Phone: [facility] 07-07-2025 09:57-0400 Body temperature 98.01 [degF] Vaughn Shrestha OUTBOARD TECHNICIAN.RESIDENTIAL CHILD CARE COUNSELOR Work Phone: [facility] 07-07-2025 09:57-0400 Body weight 42.2 kg Vaughn Shrestha OUTBOARD TECHNICIAN.RESIDENTIAL CHILD CARE COUNSELOR Work Phone: [facility] 07-07-2025 09:57-0400 Diastolic blood pressure 58 mm[Hg] Vaughn Shrestha OUTBOARD TECHNICIAN.RESIDENTIAL CHILD CARE COUNSELOR Work Phone: [facility] 07-07-2025 09:57-0400 Heart rate 64 /min Vaughn Shrestha OUTBOARD TECHNICIAN.RESIDENTIAL CHILD CARE COUNSELOR Work Phone: [facility] 07-07-2025 09:57-0400 Respiratory rate 16 /min Vaughn Shrestha OUTBOARD TECHNICIAN.RESIDENTIAL CHILD CARE COUNSELOR Work Phone: [facility] 07-07-2025 09:57-0400 SaO2% (BldA) [Mass fraction] 99 % [facility] OUTBOARD TECHNICIAN.RESIDENTIAL CHILD CARE COUNSELOR Work Phone: [facility] 07-07-2025 09:57-0400 Systolic blood pressure 98 mm[Hg] Vaughn Shrestha OUTBOARD TECHNICIAN.RESIDENTIAL CHILD CARE COUNSELOR Work Phone: [facility] 03-28-2025 11:43-0400 Body temperature 98.6 [degF] Dr. Michelle Wilcox MD Work Phone: [facility] 03-28-2025 11:43-0400 Diastolic blood pressure 70 mm[Hg] Dr. Michelle Wilcox MD Work Phone: [facility] 03-28-2025 11:43-0400 Heart rate 67 /min Dr. Michelle Wilcox MD Work Phone: [facility] 03-28-2025 11:43-0400 Respiratory rate 13 /min Dr. Michelle Wilcox MD Work Phone: [facility] 03-28-2025 11:43-0400 SaO2% (BldA) [Mass fraction] 100 % Dr. Michelle Wilcox MD Work Phone: [facility] 03-28-2025 11:43-0400 Systolic blood pressure 119 mm[Hg] Dr. Michelle Wilcox MD Work Phone: [facility] 03-28-2025 10:08-0400 Body height 157.[address] Michelle Wilcox MD Work Phone: [facility] 03-28-2025 10:08-0400 Body mass index (BMI) [Ratio] 17.2 kg/m2 Dr. Michelle Wilcox MD Work Phone: 7(907)[phone] [place] [address] 03-28-2025 10:08-0400 Body weight 42.[address] Michelle Wilcox MD Work Phone: 9(408)[phone] [place] [address] 03-13-2025 15:21-0400 Body mass index (BMI) [Ratio] 16.83 kg/m2 Michelle Wilcox MD Work Phone: 5(910)[phone] [place] [address] 03-13-2025 15:21-0400 Body weight 43.09 kg Michelle Wilcox MD Work Phone: [facility] 03-13-2025 15:21-0400 Diastolic blood pressure 69 mm[Hg] Michelle Wilcox MD Work Phone: [facility] 03-13-2025 15:21-0400 Heart rate 76 /min Michelle Wilcox MD Work Phone: [facility] 03-13-2025 15:21-0400 Respiratory rate 16 /min Michelle Wilcox MD Work Phone: [facility] 03-13-2025 15:21-0400 Systolic blood pressure 102 mm[Hg] Michelle Wilcox MD Work Phone: [facility] 03-03-2025 12:05-0400 Heart rate 96 /min Robert Brewer PA-C Work Phone: [facility] Comment on above: manual -provider 03-03-2025 11:50-0400 Body mass index (BMI) [Ratio] 17.75 kg/m2 Robert SINCLAIR-Cristal Work Phone: [facility] 03-03-2025 11:50-0400 Body weight 45.45 kg Robert Bogner PA-C Work Phone: [facility] 03-03-2025 11:50-0400 Diastolic blood pressure 78 mm[Hg] Robert Bogner PA-C Work Phone: [facility] 03-03-2025 11:50-0400 Respiratory rate 16 /min Robert Bogner PA-C Work Phone: [facility] 03-03-2025 11:50-0400 Systolic blood pressure 110 mm[Hg] Robert Bogner PA-C Work Phone: [facility] 12-02-2024 10:48-0500 Body mass index (BMI) [Ratio] 18.42 kg/m2 Michelle Wilcox MD Work Phone: [facility] 12-02-2024 10:48-0500 Body weight 47.17 kg Michelle Wilcox MD Work Phone: [facility] 12-02-2024 10:48-0500 Diastolic blood pressure 70 mm[Hg] Michelle Wilcox MD Work Phone: [facility] 12-02-2024 10:48-0500 Heart rate 80 /min Michelle Wilcox MD Work Phone: [facility] 12-02-2024 10:48-0500 Respiratory rate 16 /min Michelle Wilcox MD Work Phone: [facility] 12-02-2024 10:48-0500 Systolic blood pressure 98 mm[Hg] Michelle Wilcox MD Work Phone: [facility] 11-13-2024 13:44-0500 Body mass index (BMI) [Ratio] 19.17 kg/m2 Vaughn Shrestha OUTBOARD TECHNICIAN.RESIDENTIAL CHILD CARE COUNSELOR Work Phone: [facility] 11-13-2024 13:44-0500 Body weight 49.1 kg Vaughn Shrestha OUTBOARD TECHNICIAN.RESIDENTIAL CHILD CARE COUNSELOR Work Phone: [facility] 11-13-2024 13:44-0500 Diastolic blood pressure 67 mm[Hg] Vaughn Shrestha OUTBOARD TECHNICIAN.RESIDENTIAL CHILD CARE COUNSELOR Work Phone: [facility] 11-13-2024 13:44-0500 Heart rate 72 /min Vaughn Shrestha OUTBOARD TECHNICIAN.RESIDENTIAL CHILD CARE COUNSELOR Work Phone: [facility] 11-13-2024 13:44-0500 Respiratory rate 16 /min Vaughn Shrestha OUTBOARD TECHNICIAN.RESIDENTIAL CHILD CARE COUNSELOR Work Phone: [facility] 11-13-2024 13:44-0500 Systolic blood pressure 103 mm[Hg] Vaughn Shrestha OUTBOARD TECHNICIAN.RESIDENTIAL CHILD CARE COUNSELOR Work Phone: [facility] 10-07-2024 13:14-0500 Body mass index (BMI) [Ratio] 19.41 kg/m2 Vaughn Shrestha OUTBOARD TECHNICIAN.RESIDENTIAL CHILD CARE COUNSELOR Work Phone: [facility] 10-07-2024 13:14-0500 Body weight 49.7 kg Vaughn Shrestha OUTBOARD TECHNICIAN.RESIDENTIAL CHILD CARE COUNSELOR Work Phone: [facility] 10-07-2024 13:14-0500 Diastolic blood pressure 66 mm[Hg] Vaughn Shrestha OUTBOARD TECHNICIAN.RESIDENTIAL CHILD CARE COUNSELOR Work Phone: [facility] 10-07-2024 13:14-0500 Heart rate 80 /min Vaughn Shrestha OUTBOARD TECHNICIAN.RESIDENTIAL CHILD CARE COUNSELOR Work Phone: [facility] 10-07-2024 13:14-0500 Respiratory rate 16 /min Vaughn Shrestha OUTBOARD TECHNICIAN.RESIDENTIAL CHILD CARE COUNSELOR Work Phone: [facility] 10-07-2024 13:14-0500 Systolic blood pressure 99 mm[Hg] Vaughn Shrestha OUTBOARD TECHNICIAN.RESIDENTIAL CHILD CARE COUNSELOR Work Phone: [facility] 09-30-2024 08:41-0500 Body height 160 cm Robert Bogner PA-C Work Phone: [facility] 09-30-2024 08:41-0500 Body mass index (BMI) [Ratio] 17.71 kg/m2 Robert Bogner PA-C Work Phone: [facility] 09-30-2024 08:41-0500 Body weight 45.36 kg Robert Bogner PA-C Work Phone: [facility] 09-30-2024 08:41-0500 Diastolic blood pressure 56 mm[Hg] Robert Bogner PA-C Work Phone: [facility] 09-30-2024 08:41-0500 Heart rate 73 /min Robert Bogner PA-C Work Phone: [facility] 09-30-2024 08:41-0500 Respiratory rate 12 /min Robert Bogner PA-C Work Phone: [facility] 09-30-2024 08:41-0500 SaO2% (BldA) [Mass fraction] 99 % Robert Bogner PA-C Work Phone: [facility] 09-30-2024 08:41-0500 Systolic blood pressure 96 mm[Hg] Robert Bogner PA-C Work Phone: [facility] 07-03-2024 10:26-0400 Body mass index (BMI) [Ratio] 16.93 kg/m2 Michelle Wilcox MD Work Phone: [facility] 07-03-2024 10:26-0400 Body weight 43.36 kg Michelle Wilcox MD Work Phone: [facility] 07-03-2024 10:26-0400 Diastolic blood pressure 78 mm[Hg] Michelle Wilcox MD Work Phone: [facility] 07-03-2024 10:26-0400 Heart rate 96 /min Michelle Wilcox MD Work Phone: [facility] 07-03-2024 10:26-0400 SaO2% (BldA) [Mass fraction] 98 % Michelle Wilcox MD Work Phone: [facility] 07-03-2024 10:26-0400 Systolic blood pressure 98 mm[Hg] Michelle Wilcox MD Work Phone: [facility] 04-21-2024 11:49-0400 Diastolic blood pressure 62 mm[Hg] Jenn Suppan OUTBOARD TECHNICIAN.RESIDENTIAL CHILD CARE COUNSELOR Work Phone: [facility] 04-21-2024 11:49-0400 Heart rate 93 /min Jenn Suppan OUTBOARD TECHNICIAN.RESIDENTIAL CHILD CARE COUNSELOR Work Phone: [facility] 04-21-2024 11:49-0400 Respiratory rate 18 /min Jenn Suppan OUTBOARD TECHNICIAN.RESIDENTIAL CHILD CARE COUNSELOR Work Phone: [facility] 04-21-2024 11:49-0400 SaO2% (BldA) [Mass fraction] 94 % Jenn Suppan OUTBOARD TECHNICIAN.RESIDENTIAL CHILD CARE COUNSELOR Work Phone: [facility] 04-21-2024 11:49-0400 Systolic blood pressure 98 mm[Hg] Jenn Suppan OUTBOARD TECHNICIAN.RESIDENTIAL CHILD CARE COUNSELOR Work Phone: [facility] 02-22-2024 07:30-0400 Body weight 42.19 kg Divina Older OUTBOARD TECHNICIAN.CEMENT DESPATCH OPERATOR Work Phone: [facility] 02-22-2024 07:30-0400 Diastolic blood pressure 60 mm[Hg] Divina Older OUTBOARD TECHNICIAN.CEMENT DESPATCH OPERATOR Work Phone: [facility] 02-22-2024 07:30-0400 Heart rate 80 /min Divina Older OUTBOARD TECHNICIAN.CEMENT DESPATCH OPERATOR Work Phone: [facility] 02-22-2024 07:30-0400 Respiratory rate 16 /min Divina Older OUTBOARD TECHNICIAN.CEMENT DESPATCH OPERATOR Work Phone: [facility] 02-22-2024 07:30-0400 SaO2% (BldA) [Mass fraction] 97 % Divina Older OUTBOARD TECHNICIAN.CEMENT DESPATCH OPERATOR Work Phone: [facility] 02-22-2024 07:30-0400 Systolic blood pressure 98 mm[Hg] Divina Older OUTBOARD TECHNICIAN.CEMENT DESPATCH OPERATOR Work Phone: [facility] 02-11-2024 13:20-0400 Body height 160 cm [employer]Talk PA-C Work Phone: [facility] 02-11-2024 13:20-0400 Body temperature 97.9 [degF] [employer] PA-C Work Phone: [facility] 02-11-2024 13:20-0400 Body weight 42.19 kg Cezar Denbow PA-C Work Phone: [facility] 02-11-2024 13:20-0400 Diastolic blood pressure 60 mm[Hg] Cezar Denbow PA-C Work Phone: [facility] 02-11-2024 13:20-0400 Heart rate 80 /min Cezar Denbow PA-C Work Phone: [facility] 02-11-2024 13:20-0400 Respiratory rate 12 /min Cezar Denbow PA-C Work Phone: [facility] 02-11-2024 13:20-0400 SaO2% (BldA) [Mass fraction] 98 % Cezar Denbow PA-C Work Phone: [facility] 02-11-2024 13:20-0400 Systolic blood pressure 116 mm[Hg] Cezar Denbow PA-C Work Phone: [facility] 02-05-2024 12:58-0400 Body height 160 cm Cezar Denbow PA-C Work Phone: [facility] 02-05-2024 12:58-0400 Body temperature 99.1 [degF] Cezar Denbow PA-C Work Phone: [facility] 02-05-2024 12:58-0400 Body weight 41.28 kg Cezar Denbow PA-C Work Phone: [facility] 02-05-2024 12:58-0400 Diastolic blood pressure 50 mm[Hg] Cezar Denbow PA-C Work Phone: [facility] 02-05-2024 12:58-0400 Heart rate 85 /min Cezar Denbow PA-C Work Phone: [facility] 02-05-2024 12:58-0400 Respiratory rate 12 /min Cezar Denbow PA-C Work Phone: [facility] 02-05-2024 12:58-0400 SaO2% (BldA) [Mass fraction] 99 % Cezar SINCLAIR-C Work Phone: [facility] 02-05-2024 12:58-0400 Systolic blood pressure 80 mm[Hg] Cezar Romo PA-C Work Phone: [facility] 02-02-2024 10:56-0400 Body temperature 97.7 [degF] Dr. Michelle Wilcox Work Phone: [facility] 02-02-2024 10:56-0400 Diastolic blood pressure 80 mm[Hg] Dr. Michelle Wilcox Work Phone: 6(560)[phone] [place] [address] 02-02-2024 10:56-0400 Heart rate 54 /min Dr. Michelle Wilcox Work Phone: 9(035)[phone] [place] [address] 02-02-2024 10:56-0400 Respiratory rate 16 /min Dr. Michelle Wilcox Work Phone: [facility] 02-02-2024 10:56-0400 SaO2% (BldA) [Mass fraction] 95 % Dr. Michelle Wilcox Work Phone: 6(242)[phone] [place] [address] 02-02-2024 10:56-0400 Systolic blood pressure 109 mm[Hg] Dr. Michelle Wilcox Work Phone: 3(033)[phone] [place] [address] 01-31-2024 10:49-0400 Body height 160.[address] Michelle Wilcox Work Phone: 6(562)[phone] [place] [address] 01-31-2024 10:49-0400 Body weight 45.[address] Michelle Wilcox Work Phone: 7(160)[phone] [place] [address] 01-30-2024 17:46-0400 Body mass index (BMI) [Ratio] 17.7 kg/m2 Dr. Michelle Wilcox Work Phone: 9(942)[phone] [place] [address] 01-30-2024 17:12-0400 Body temperature 98.6 [degF] [facility] 01-30-2024 17:12-0400 Diastolic blood pressure 56 mm[Hg] [facility] 01-30-2024 17:12-0400 Heart rate 84 /min [facility] 01-30-2024 17:12-0400 Respiratory rate 20 /min [facility] 01-30-2024 17:12-0400 SaO2% (BldA) [Mass fraction] 100 % [facility] 01-30-2024 17:12-0400 Systolic blood pressure 88 mm[Hg] [facility] 01-30-2024 10:30-0400 Body height 160.02 cm [facility] 01-30-2024 10:30-0400 Body mass index (BMI) [Ratio] 16.8 kg/m2 [facility] 01-30-2024 10:30-0400 Body weight 43.09 kg [facility] 01-21-2024 14:17-0400 Body height 160 cm Cezar Denbow PA-C Work Phone: [facility] 01-21-2024 14:17-0400 Body temperature 98.1 [degF] Cezar Denbow PA-C Work Phone: [facility] 01-21-2024 14:17-0400 Body weight 43.55 kg Cezar Denbow PA-C Work Phone: [facility] 01-21-2024 14:17-0400 Diastolic blood pressure 60 mm[Hg] Cezar Denbow PA-C Work Phone: [facility] 01-21-2024 14:17-0400 Heart rate 75 /min Cezar Denbow PA-C Work Phone: [facility] 01-21-2024 14:17-0400 Respiratory rate 12 /min Cezar Denbow PA-C Work Phone: [facility] 01-21-2024 14:17-0400 SaO2% (BldA) [Mass fraction] 100 % Cezar Denbow PA-C Work Phone: [facility] 01-21-2024 14:17-0400 Systolic blood pressure 102 mm[Hg] Cezar Denbow PA-C Work Phone: [facility] 12-19-2023 17:00-0500 Body height 160.02 cm [facility] 12-19-2023 17:00-0500 Body mass index (BMI) [Ratio] 17.2 kg/m2 [facility] 12-19-2023 17:00-0500 Body temperature 97.8 [degF] [facility] 12-19-2023 17:00-0500 Body weight 44.08 kg [facility] 12-19-2023 17:00-0500 Diastolic blood pressure 88 mm[Hg] [facility] 12-19-2023 17:00-0500 Heart rate 92 /min [facility] 12-19-2023 17:00-0500 Respiratory rate 16 /min [facility] 12-19-2023 17:00-0500 SaO2% (BldA) [Mass fraction] 99 % [facility] 12-19-2023 17:00-0500 Systolic blood pressure 115 mm[Hg] [facility] 06-06-2022 14:40-0400 Diastolic blood pressure 88 mm[Hg] Mary Anne Gonsales MD Work Phone: [facility] 06-06-2022 14:40-0400 Heart rate 64 /min Mayr Anne Gonsales MD Work Phone: [facility] 06-06-2022 14:40-0400 Respiratory rate 15 /min Mary Anne Gonsales MD Work Phone: [facility] 06-06-2022 14:40-0400 SaO2% (BldA) [Mass fraction] 100 % Mary Anne Gonsales MD Work Phone: [facility] 06-06-2022 14:40-0400 Systolic blood pressure 115 mm[Hg] Mary Anne Gonsales MD Work Phone: [facility] 06-06-2022 14:17-0400 Body temperature 97.3 [degF] Mary Anne Gonsales MD Work Phone: [facility] 06-06-2022 12:50-0400 Body height 160 cm Mary Anne Gonsales MD Work Phone: [facility] 07-26-2022 12:50-0400 Body weight 46.27 kg Mary Anne Gonsales MD Work Phone: [facility] 06-05-2022 12:48-0400 Diastolic blood pressure 73 mm[Hg] Ulisses Carter MD Work Phone: [facility] 06-05-2022 12:48-0400 Heart rate 66 /min Ulisses Carter MD Work Phone: [facility] 06-05-2022 12:48-0400 Systolic blood pressure 107 mm[Hg] Ulisses Carter MD Work Phone: [facility] 06-05-2022 12:43-0400 Body temperature 97.11 [degF] Ulisses Carter MD Work Phone: [facility] 06-05-2022 12:43-0400 Body weight 47.63 kg Ulisses Carter MD Work Phone: [facility] 05-20-2022 08:52-0400 Body weight 47.63 kg Michelle Wilcox MD Work Phone: [facility] 05-20-2022 08:52-0400 Diastolic blood pressure 56 mm[Hg] Michelle Wilcox MD Work Phone: [facility] 05-20-2022 08:52-0400 Heart rate 64 /min Michelle Wilcox MD Work Phone: [facility] 05-20-2022 08:52-0400 Respiratory rate 16 /min Michelle Wilcox MD Work Phone: [facility] 05-20-2022 08:52-0400 SaO2% (BldA) [Mass fraction] 96 % Michelle Wilcox MD Work Phone: [facility] 05-20-2022 08:52-0400 Systolic blood pressure 92 mm[Hg] Michelle Wilcox MD Work Phone: [facility] 05-10-2022 13:31-0400 Diastolic blood pressure 64 mm[Hg] Dr. Michelle Wilcox Work Phone: [facility] Work Phone: 05-10-2022 13:31-0400 Heart rate 70 /min Dr. Michelle Wilcox Work Phone: [facility] Work Phone: 05-10-2022 13:31-0400 Respiratory rate 16 /min Dr. Michelle Wilcox Work Phone: [facility] Work Phone: 05-10-2022 13:31-0400 SaO2% (BldA) [Mass fraction] 98 % Dr. Michelle Wilcox Work Phone: [facility] Work Phone: 05-10-2022 13:31-0400 Systolic blood pressure 100 mm[Hg] Dr. Michelle Wilcox Work Phone: [facility] Work Phone: 05-10-2022 10:45-0400 Body height 160.[address] Michelle Wilcox Work Phone: [facility] Work Phone: 05-10-2022 10:45-0400 Body mass index (BMI) [Ratio] 18.5 kg/m2 Dr. Michelle Wilcox Work Phone: [facility] Work Phone: 05-10-2022 10:45-0400 Body temperature 97.8 [degF] Dr. Michelle Wilcox Work Phone: [facility] Work Phone: 05-10-2022 10:45-0400 Body weight 47.[address] Michelle Wilcox Work Phone: [facility] Work Phone: 04-16-2022 16:33-0400 Body height 160.[address] Michelle Wilcox Work Phone: [facility] Work Phone: 04-16-2022 16:33-0400 Body mass index (BMI) [Ratio] 18.6 kg/m2 Dr. Michelle Wilcox Work Phone: [facility] Work Phone: 04-16-2022 16:33-0400 Body temperature 97.6 [degF] Dr. Michelle Wilcox Work Phone: [facility] Work Phone: 04-16-2022 16:33-0400 Body weight 47.[address] Michelle Wilcox Work Phone: [facility] Work Phone: 04-16-2022 16:33-0400 Diastolic blood pressure 73 mm[Hg] Dr. Michelle Wilcox Work Phone: [facility] Work Phone: 04-16-2022 16:33-0400 Heart rate 95 /min Dr. Michelle Wilcox Work Phone: [facility] Work Phone: 04-16-2022 16:33-0400 Respiratory rate 16 /min Dr. Michelle Wilcox Work Phone: [facility] Work Phone: 04-16-2022 16:33-0400 SaO2% (BldA) [Mass fraction] 99 % Dr. Michelle Wilcox Work Phone: [facility] Work Phone: 04-16-2022 16:33-0400 Systolic blood pressure 108 mm[Hg] Dr. Michelle Wilcox Work Phone: [facility] Work Phone: 04-07-2022 11:05-0400 Body temperature 97.5 [degF] Dr. Michelle Wilcox Work Phone: [facility] Work Phone: 04-07-2022 11:05-0400 Diastolic blood pressure 64 mm[Hg] Dr. Michelle Wilcox Work Phone: [facility] Work Phone: 04-07-2022 11:05-0400 Heart rate 56 /min Dr. Michelle Wilcox Work Phone: [facility] Work Phone: 04-07-2022 11:05-0400 Respiratory rate 16 /min Dr. Michelle Wilcox Work Phone: [facility] Work Phone: 04-07-2022 11:05-0400 SaO2% (BldA) [Mass fraction] 98 % Dr. Michelle Wilcox Work Phone: [facility] Work Phone: 04-07-2022 11:05-0400 Systolic blood pressure 90 mm[Hg] Dr. Michelle Wilcox Work Phone: [facility] Work Phone: 04-07-2022 09:12-0400 Body mass index (BMI) [Ratio] 18.7 kg/m2 Dr. Michelle Wilcox Work Phone: [facility] Work Phone: 04-07-2022 09:12-0400 Body weight 47.[address] Michelle Wilcox Work Phone: [facility] Work Phone: 02-13-2022 20:43-0400 Respiratory rate 18 /min Dr. Michelle Wilcox Work Phone: [facility] Work Phone: 02-13-2022 19:40-0400 Diastolic blood pressure 80 mm[Hg] Dr. Michelle Wilcox Work Phone: [facility] Work Phone: 02-13-2022 19:40-0400 Heart rate 65 /min Dr. Michelle Wilcox Work Phone: [facility] Work Phone: 02-13-2022 19:40-0400 SaO2% (BldA) [Mass fraction] 97 % Dr. Michelle Wilcox Work Phone: [facility] Work Phone: 02-13-2022 19:40-0400 Systolic blood pressure 111 mm[Hg] Dr. Michelle Wilcox Work Phone: [facility] Work Phone: 02-13-2022 17:12-0400 Body mass index (BMI) [Ratio] 18.8 kg/m2 Dr. Michelle Wilcox Work Phone: [facility] Work Phone: 02-13-2022 17:12-0400 Body temperature 96.8 [degF] Dr. Michelle Wilcox Work Phone: [facility] Work Phone: 02-13-2022 17:12-0400 Body weight 48.[address] Michelle Wilcox Work Phone: [facility] Work Phone: 02-05-2022 17:09-0400 Diastolic blood pressure 65 mm[Hg] Dr. Michelle Wilcox Work Phone: [facility] Work Phone: 02-05-2022 17:09-0400 Heart rate 89 /min Dr. Michelle Wilcox Work Phone: [facility] Work Phone: 02-05-2022 17:09-0400 Respiratory rate 16 /min Dr. Michelle Wilcox Work Phone: [facility] Work Phone: 02-05-2022 17:09-0400 SaO2% (BldA) [Mass fraction] 98 % Dr. Michelle Wilcox Work Phone: [facility] Work Phone: 02-05-2022 17:09-0400 Systolic blood pressure 103 mm[Hg] Dr. Michelle Wilcox Work Phone: [facility] Work Phone: 02-05-2022 16:41-0400 Body temperature 97.6 [degF] Dr. Michelle Wilcox Work Phone: [facility] Work Phone: 02-05-2022 14:39-0400 Body mass index (BMI) [Ratio] 19.6 kg/m2 Dr. Michelle Wilcox Work Phone: [facility] Work Phone: 02-05-2022 14:39-0400 Body weight 50.[address] Michelle Wilcox Work Phone: [facility] Work Phone: 01-28-2022 14:37-0400 Body temperature 98.3 [degF] Dr. Michelle Wilcox Work Phone: [facility] Work Phone: 01-28-2022 14:37-0400 Diastolic blood pressure 64 mm[Hg] Dr. Michelle Wilcox Work Phone: [facility] Work Phone: 01-28-2022 14:37-0400 Heart rate 74 /min Dr. Michelle Wilcox Work Phone: [facility] Work Phone: 01-28-2022 14:37-0400 Respiratory rate 18 /min Dr. Michelle Wilcox Work Phone: [facility] Work Phone: 01-28-2022 14:37-0400 SaO2% (BldA) [Mass fraction] 98 % Dr. Michelle Wilcox Work Phone: [facility] Work Phone: 01-28-2022 14:37-0400 Systolic blood pressure 114 mm[Hg] Dr. Michelle Wilcox Work Phone: [facility] Work Phone: 01-26-2022 16:33-0400 Body mass index (BMI) [Ratio] 19.8 kg/m2 Dr. Michelle Wilcox Work Phone: [facility] Work Phone: 01-26-2022 16:33-0400 Body weight 50.[address] Michelle Wilcox Work Phone: [facility] Work Phone: 08-08-2021 20:12-0400 Body temperature 98.1 [degF] Adeola Vogel DO Work Phone: [facility] Work Phone: 08-08-2021 20:12-0400 Diastolic blood pressure 77 mm[Hg] Adeola Hernandezaci DO Work Phone: [facility] Work Phone: 08-08-2021 20:12-0400 Heart rate 74 /min Adeola Hernandezaci DO Work Phone: [facility] Work Phone: 08-08-2021 20:12-0400 Respiratory rate 16 /min Adeola Hernandezaci DO Work Phone: [facility] Work Phone: 08-08-2021 20:12-0400 SaO2% (BldA) [Mass fraction] 100 % Adeola Hernandezaci DO Work Phone: [facility] Work Phone: 08-08-2021 20:12-0400 Systolic blood pressure 105 mm[Hg] Adeola Jaspreet DO Work Phone: [facility] Work Phone: 07-30-2021 22:08-0400 Body temperature 98.2 [degF] Eliezer Marina MD Work Phone: [facility] Work Phone: 07-30-2021 22:08-0400 Diastolic blood pressure 79 mm[Hg] Eliezer Marina MD Work Phone: [facility] Work Phone: 07-30-2021 22:08-0400 Heart rate 73 /min Eliezer Marina MD Work Phone: [facility] Work Phone: 07-30-2021 22:08-0400 Respiratory rate 16 /min Eliezer Marina MD Work Phone: [facility] Work Phone: 07-30-2021 22:08-0400 SaO2% (BldA) [Mass fraction] 98 % Eliezer Marina MD Work Phone: [facility] Work Phone: 07-30-2021 22:08-0400 Systolic blood pressure 97 mm[Hg] Eliezer Marina MD Work Phone: [facility] Work Phone: 12-26-2020 15:05-0500 Pulse Oximetry 99 % Adeola SERNA Work Phone: 12-26-2020 15:05-0500 Respiratory Rate 18 /min Adeola SERNA Work Phone: 12-26-2020 14:23-0500 Pulse (Heart Rate) 93 /min Adeola SERNA Work Phone: 12-26-2020 14:22-0500 BP Diastolic 86 mm[Hg] Adeola SERNA Work Phone: 12-26-2020 14:22-0500 BP Systolic 114 mm[Hg] Adeola SERNA Work Phone: 12-26-2020 13:21-0500 BMI (Body Mass Index) 16.83 kg/m2 Adeola SERNA Work Phone: 12-26-2020 13:21-0500 Body Temperature 98.4 [degF] Adeola MENDOZAA Work Phone: 12-26-2020 13:21-0500 Body weight 43.09 kg Adeola SERNA Work Phone: 12-26-2020 13:21-0500 Height 160 cm Adeola SERNA Work Phone: 06-18-2020 01:49-0400 Body Temperature 98.01 [degF] Venkata [facility] [place] 06-18-2020 01:49-0400 BP Diastolic 64 mm[Hg] Venkata [facility] [place], [place] 06-18-2020 01:49-0400 BP Systolic 117 mm[Hg] Venkata Steele [facility] [place], [place] 06-18-2020 01:49-0400 Pulse (Heart Rate) 68 /min Venkata Steele [facility], [place] 06-18-2020 01:49-0400 Pulse Oximetry 100 % Venkata Steele [facility] [place], [place] 06-18-2020 01:49-0400 Respiratory Rate 16 /min Venkata Steele [facility] [place], [place] Encounters Encounter Date Encounter Type Care Provider Facility Start: 09-08-2025 End: 09-08-2025 ambulatory VIC DAVIS Facility:[facility] Start: 08-14-2025 ambulatory MICHELLE KEO Facility:[facility] Start: 08-12-2025 End: 08-12-2025 ambulatory [facility] Facility:[facility] Start: 07-14-2025 End: 07-15-2025 Telephone encounter Michelle Wilcox MD Work Phone: [facility] [place] Comment on above: Refill Request; Urin lili Problem Start: 07-10-2025 End: 07-21-2025 Follow-up encounter Vaughn Shrestha APRN.CNS Work Phone: [facility] [place] Start: 07-07-2025 End: 07-07-2025 Office outpatient visit 25 minutes Vaughn Shrestha APRN.CNS Work Phone: [facility] [place] Comment on above: Left flank pain (Olga chloe Dx); History of kidney stones; UTI symptoms; Microscopic hematuria; Malaise and fatigue; Chills; Renal colic on left side; Urinary tract infection with hematuria, site unspecified Start: 07-07-2025 End: 07-07-2025 ambulatory VAUGHN SHRESTHA Facility:[facility] Start: 05-12-2025 ambulatory Michelle Wilcox Facility:[facility] Start: 03-31-2025 End: 03-31-2025 ambulatory [facility] Facility:[facility] Start: 03-28-2025 End: 03-28-2025 Emergency department patient visit Dr. Michelle Wilcox MD Work Phone: -Emergency Department Work Phone: Start: 03-20-2025 End: 03-20-2025 Refill Michelle Wilcox MD Work Phone: [facility] [place] Comment on above: Refill Request Patient Update (Low back pain continues) Start: 03-18-2025 End: 03-20-2025 Refill Michelle Wilcox MD Work Phone: [facility] [place] Comment on above: Refill Request Start: 03-16-2025 End: 05-16-2025 Follow-up encounter Michelle Wilcox MD Work Phone: [facility] [place] Start: 03-13-2025 End: 03-13-2025 Subsequent hospital visit by physician Luci [facility] [place] Work Phone: Radiology Comment on above: Acute bilateral low back pain with bilateral sciatica [M54.42, M54.41] Start: 03-13-2025 End: 03-13-2025 Office outpatient visit 25 minutes Michelle Wilcox MD Work Phone: [facility] [place] Comment on above: Acute bilateral low back pain with bilateral sciatica (Primary Dx); Injury of back, subsequent encounter; Encounter for issue of other medical certificate Start: 03-13-2025 End: 03-13-2025 ambulatory MICHELLE WILCOX Facility:[facility] Start: 03-03-2025 End: 03-03-2025 ambulatory ROBERT BREWER Facility:[facility] Start: 03-03-2025 End: 03-03-2025 Office outpatient visit 15 minutes Robert Brewer PA-C Work Phone: [facility] [place] Comment on above: Lumbar pain (Primary Dx); Stress incontinence; Sciatica, left side Start: 12-05-2024 End: 12-08-2024 Telephone encounter Michelle Wilcox MD Work Phone: Geriatrics Comment on above: Refill Request Start: 12-02-2024 End: 12-02-2024 Subsequent hospital visit by physician Xr [facility] [place] Work Phone: Radiology Comment on above: Rib pain on right si de [R07.81] Start: 12-02-2024 End: 12-02-2024 ambulatory MICHELLE WILCOX Facility:[facility] Start: 12-02-2024 End: 12-02-2024 Office outpatient visit 25 minutes Michelle Wilcox MD Work Phone: [facility] [place] Comment on above: Rib pain on right si de (Primary Dx) Start: 11-17-2024 End: 11-18-2024 Refill Vaughn Shrestha OUTBOARD TECHNICIAN.RESIDENTIAL CHILD CARE COUNSELOR Work Phone: [facility] [place] Comment on above: Refill Request Start: 11-13-2024 End: 11-13-2024 Subsequent hospital visit by physician Luci [facility] [place] Work Phone: Radiology Comment on above: Chest wall discomfor t [R07.89] Start: 11-13-2024 End: 11-13-2024 ambulatory [facility] Facility:[facility] Start: 11-13-2024 End: 11-13-2024 Office outpatient visit 25 minutes Vaughn Shrestha OUTBOARD TECHNICIAN.RESIDENTIAL CHILD CARE COUNSELOR Work Phone: [facility] [place] Comment on above: Chest wall discomfor t (Primary Dx); History of fractured rib; Stress incontinence of urine; History of kidney stones; History of hysterectomy Start: 11-10-2024 End: 11-10-2024 ambulatory Michelle Wilcox MD Work Phone: [facility] [place] Comment on above: Musculoskeletal Prob [place] Start: 10-07-2024 End: 10-07-2024 Office outpatient visit 15 minutes Vaughn Shrestha OUTBOARD TECHNICIAN.RESIDENTIAL CHILD CARE COUNSELOR Work Phone: [facility] [place] Comment on above: Injury of finger of left hand, subsequent encounter (Primary Dx); Epigastric pain Start: 10-07-2024 End: 10-07-2024 [facility] Facility:[facility] Start: 09-30-2024 End: 09-30-2024 Telephone encounter Robert Brewer PA-C Work Phone: [facility] [place] Comment on above: Medication Problem Start: 09-30-2024 End: 09-30-2024 Office outpatient visit 15 minutes Robert Brewer PA-C Work Phone: [facility] [place] Comment on above: Cut of skin of middl e finger (Primary Dx) Start: 09-30-2024 End: 09-30-2024 ambulatory ROBERT BREWER Facility:[facility] Start: 09-28-2024 End: 09-28-2024 Emergency department patient visit Donald Salazar Facility:[facility] Start: 08-04-2024 End: 08-04-2024 Telephone encounter Michelle Wilcox MD Work Phone: [facility] [place] Comment on above: No Show Start: 07-15-2024 End: 08-19-2024 Telephone encounter Tran Hawley MD Work Phone: Orthopaedics Comment on above: Appointment cancella tion Start: 07-03-2024 End: 07-03-2024 Office outpatient visit 25 minutes Michelle Wilcox MD Work Phone: [facility] [place] Comment on above: Cut of finger (Prima ry Dx); Hospital acquired MRSA infection; Vitamin D deficiency; Vitamin B12 deficiency; Intestinal malabsorption, unspecified type Start: 05-06-2024 End: 05-06-2024 Patient encounter procedure Simón Tellez Work Phone: Podiatry Comment on above: Closed fracture of l eft foot, initial encounter (Primary Dx) Start: 05-01-2024 Refill Simón de la paz Work Phone: Podiatry Comment on above: Refill Request Start: 04-29-2024 End: 04-29-2024 Subsequent hospital visit by physician Luci [facility] [place] Work Phone: Radiology Comment on above: Closed fracture of l eft foot, initial encounter [S92.902A] Start: 04-29-2024 End: 04-29-2024 Patient encounter procedure Simón Tellez Work Phone: Podiatry Comment on above: Closed fracture of l eft foot, initial encounter (Primary Dx) Start: 04-24-2024 End: 04-24-2024 Patient encounter procedure Simón Tellez Work Phone: Podiatry Comment on above: Closed fracture of l eft foot, initial encounter (Primary Dx) Start: 04-23-2024 End: 04-23-2024 Patient encounter procedure Joe Jara MD Work Phone: [facility] Comment on above: Nondisplaced fractur e of body of left calcaneus, initial encounter for closed fracture (Primary Dx) Start: 04-23-2024 Telephone encounter Simón Kennedy Work Phone: Podiatry Comment on above: Results; Patient Upd ate Start: 04-22-2024 End: 04-22-2024 Subsequent hospital visit by physician Isabella [facility]) Work Phone: Cat Scan Comment on above: Closed fracture of l eft foot, initial encounter [[id number]] Start: 04-22-2024 Telephone encounter Jenn Yoon APRN.RESIDENTIAL CHILD CARE COUNSELOR Work Phone: Family [facility] [place] Comment on above: Xray Results Start: 04-21-2024 Telephone encounter Jenn Yoon APRN.RESIDENTIAL CHILD CARE COUNSELOR Work Phone: Family [facility] [place] Comment on above: Patient Update Appointment Patient Question Start: 04-21-2024 End: 04-21-2024 Subsequent hospital visit by physician Luci [facility] [place] Work Phone: Radiology Comment on above: Injury of toe on lef t foot, subsequent encounter [I39.472R] Start: 04-21-2024 End: 04-21-2024 Office outpatient visit 15 minutes Jenn Yoon APRN.RESIDENTIAL CHILD CARE COUNSELOR Work Phone: Family [facility] [place] Comment on above: Injury of toe on lef t foot, subsequent encounter (Primary Dx) Start: 03-07-2024 Refill Michelle Au Work Phone: [facility] [place] Comment on above: Refill Request Start: 03-05-2024 Telephone encounter Divina Mejias APRN.CEMENT DESPATCH OPERATOR Work Phone: [facility] [place] Comment on above: Opened In Error Start: 03-02-2024 Refill Vaughn Shrestha OUTBOARD TECHNICIAN.RESIDENTIAL CHILD CARE COUNSELOR Work Phone: [facility] [place] Comment on above: Refill Request Start: 02-25-2024 Telephone encounter Divina Mejias ADRIEN.CEMENT DESPATCH OPERATOR Work Phone: [facility] [place] Comment on above: Results Start: 02-25-2024 End: 02-25-2024 Subsequent hospital visit by physician Ct [facility] (I[facility]) Work Phone: Cat Scan Comment on above: Left flank pain [R10 .9] Start: 02-22-2024 ambulatory Divinastas Mejias APRN .CEMENT DESPATCH OPERATOR Work Phone: [facility] [place] Comment on above: Prescription Start: 02-22-2024 End: 02-22-2024 Patient encounter procedure Divina Mejias ADRIEN.CEMENT DESPATCH OPERATOR Work Phone: [facility] [place] Comment on above: Left flank pain (Olga chloe Dx); Abnormal US (ultrasound) of abdomen; Epigastric pain; Elevated amylase; Nausea Start: 02-14-2024 ambulatory Cezar Romo PA-C Work Phone: [facility] [place] Comment on above: I went to the hospit al Start: 02-12-2024 ambulatory [facility] Facility:[facility] Comment on above: questions Start: 02-12-2024 End: 02-12-2024 Subsequent hospital visit by physician [facility] Comment on above: Epigastric burning s ensation [R10.13] Start: 02-11-2024 End: 02-11-2024 Subsequent hospital visit by physician Xr [facility] [place] Work Phone: Radiology Comment on above: Epigastric burning s ensation [R10.13] Start: 02-11-2024 End: 02-11-2024 Patient encounter procedure Cezar Romo PA-C Work Phone: [facility] [place] Comment on above: Epigastric burning s ensation (Primary Dx); Abnormal finding of kidney; Hot flashes; History of colitis; Diarrhea, unspecified type; Chest pain, unspecified type Start: 02-05-2024 ambulatory CEZARYESICA DECKERARMANI Facility: [facility] Start: 02-05-2024 End: 02-05-2024 Subsequent hospital visit by physician [facility] Comment on above: Pyelonephritis of ri ght kidney [N12] Start: 02-05-2024 End: 02-05-2024 Patient encounter procedure Cezar Romo PA-C Work Phone: [facility] [place] Comment on above: Abnormal finding of kidney (Primary Dx); Pyelonephritis of right kidney; Abnormal TSH Start: 02-01-2024 Non-patient / Non-visit Dr. Chrystal Wilcox Work Phone: [facility] Work Phone: Start: 01-31-2024 Non-patient / Non-visit Dr. Chrystal Wilcox Work Phone: [facility] Work Phone: Start: 01-30-2024 End: 02-02-2024 Evaluation and management of inpatient [facility] Work Phone: Start: 01-22-2024 ambulatory Cezar Romo PA-C Work Phone: [facility] [place] Comment on above: I had to call off wo today Start: 01-21-2024 End: 01-21-2024 Subsequent hospital visit by physician Luci [facility] Work Phone: Radiology Comment on above: Pain of left upper e xtremity [M79.602] Start: 01-21-2024 End: 01-21-2024 Patient encounter procedure Cezar Romo PA-C Work Phone: [facility] [place] Comment on above: Pain of left upper e xtremity (Primary Dx); Paresthesias; Cervicalgia; Herpes simplex vulvovaginitis; Vitamin D deficiency; Anxiety neurosis Start: 12-19-2023 End: 12-19-2023 Emergency department patient visit [facility] Work Phone: Start: 06-09-2022 Orders Only Mary Anne garcia MD Work Phone: General Surgery Start: 06-07-2022 Telephone encounter Michelle schafer MD Work Phone: [facility] [place] Comment on above: Medication Request; Medication Follow-up Start: 06-06-2022 End: 06-06-2022 Subsequent hospital visit by physician Mary Anne Gonsales MD Work Phone: LD SURGERY Comment on above: Left sided abdominal pain [R10.9] Start: 06-05-2022 Telephone encounter Michelle schafer MD Work Phone: [facility] [place] Comment on above: Patient Question Start: 06-05-2022 End: 06-05-2022 Patient encounter procedure Ulisses Carter MD Work Phone: [facility] [place] Comment on above: Preoperative cardiov ascular examination (Primary Dx); History of syncope; Dizziness, nonspecific; Opiate use Start: 06-05-2022 End: 06-05-2022 Patient encounter status Ulisses Carter MD Work Phone: [facility] [place] Start: 05-29-2022 Telephone encounter Mary Anne Soni MD Work Phone: General Surgery Comment on above: 06/06/2022 Colonoscop y Start: 05-22-2022 End: 05-22-2022 Subsequent hospital visit by physician [facility] (I[facility]Stat) Work Phone: Cat [facility] Comment on above: Left lower quadrant pain [R10.32] Start: 05-20-2022 End: 05-20-2022 Patient encounter procedure Michelle Wilcox MD Work Phone: [facility] [place] Comment on above: Left lower quadrant pain (Primary Dx); Left upper quadrant abdominal pain; Tobacco use; Opiate use; Kidney stones Start: 05-10-2022 Refill Michelle Au Work Phone: [facility] [place] Comment on above: Refill Request Start: 05-10-2022 End: 05-10-2022 Emergency department patient [facility] Dr. [facility] Start: 05-02-2022 Refill Michelle Au Work Phone: Internal [facility] Comment on above: Refill Request Start: 04-26-2022 End: 04-26-2022 Refill Michelle Wilcox MD Work Phone: [facility] [place] Comment on above: Refill Request Kidney stones [N20.0 ] Start: 04-19-2022 End: 04-19-2022 ambulatory Michelle Wilcox MD Work Phone: [facility] [place] Comment on above: Kidney stones (Prima ry Dx); COVID-19 virus infection Start: 04-19-2022 End: 04-19-2022 Telemedicine consultation with patient Michelle Wilcox MD Work Phone: [facility] Start: 04-16-2022 End: 04-16-2022 Emergency department patient visit Dr. [facility] Wilcox [facility] Start: 04-07-2022 End: 04-07-2022 Admission to same day surgery center Dr. [facility] Wilcox [facility] Start: 04-05-2022 Refill Divina Mejias APRN, .CNP Work Phone: Internal [facility] Comment on above: Refill Request Start: 03-27-2022 Refill Michelle Au Work Phone: Internal [facility] Comment on above: Refill Request Start: 03-25-2022 Refill Michelle Au Work Phone: Internal [facility] Comment on above: Refill Request; Refi ll Request Start: 03-20-2022 Refill Michelle Au Work Phone: Internal [facility] Comment on above: Refill Request Start: 03-17-2022 Refill Michelle Au Work Phone: Internal [facility] Comment on above: Refill Request Start: 03-15-2022 Refill Michelle Au Work Phone: [facility] Comment on above: Refill Request Start: 02-26-2022 Refill Michelle Au Work Phone: [facility] Comment on above: Refill Request Start: 02-17-2022 Refill Michelle Au Work Phone: [facility] Comment on above: Refill Request Start: 02-13-2022 End: 02-13-2022 Emergency department patient visit Dr. Michelle Wilcox [facility] Start: 02-05-2022 End: 02-05-2022 Emergency department patient visit Dr. Michelle Wilcox [facility] Start: 01-28-2022 Non-patient / Non-visit Dr. Chrystal Wilcox Work Phone: [facility] Start: 01-27-2022 Non-patient / Non-visit Dr. Chrystal Wilcox Work Phone: [facility] Start: 01-26-2022 End: 01-28-2022 Evaluation and management of inpatient Dr. Michelle Wilcox [facility] Start: 01-26-2022 Non-patient / Non-visit Dr. Chrystal Wilcox Work Phone: [facility] Start: 08-08-2021 End: 08-08-2021 Emergency department patient visit Adeola Vogel DO Work Phone: [facility] Comment on above: Closed boxer's fract ure, initial encounter (Primary Dx) Start: 07-30-2021 End: 07-30-2021 Emergency department patient visit Eliezer Marina MD Work Phone: [facility] Comment on above: Exacerbation of asth ma, unspecified asthma severity, unspecified whether persistent (Primary Dx) Start: 12-26-2020 End: 12-26-2020 Emergency department patient visit Adeola Vogel Work Phone: [facility] Comment on above: Hyperventilation syn drome (Primary Dx); Anxiety state; Uncomplicated asthma, unspecified asthma severity, unspecified whether persistent Start: 09-01-2020 End: 09-01-2020 Subsequent hospital visit by physician Luci [facility] [place] Work Phone: Radiology Comment on above: Acute left-sided tho racic back pain [M54.6] Start: 06-18-2020 End: 06-18-2020 Emergency department patient visit Venkata Linares Work Phone: [facility] Comment on above: Facial contusion, in itial encounter (Primary Dx); Contusion of neck, initial encounter Procedures Date Procedure Procedure Detail Performing Clinician Start: 07-07-2025 Urnls dip stick/tablet rgnt auto w/o microscopy Vaughn Shrestha OUTBOARD TECHNICIAN.RESIDENTIAL CHILD CARE COUNSELOR Work Phone: Start: 03-28-2025 CT of head without contrast Dr. Michelle Wilcox MD Work Phone: Start: 03-13-2025 Radex spine lumbosacral 2/3 views Michelle Wilcox MD Work Phone: Start: 11-13-2024 Radiologic exam chest 2 views Vaughn Shrestha OUTBOARD TECHNICIAN.RESIDENTIAL CHILD CARE COUNSELOR Work Phone: Start: 04-22-2024 Ct lower extremity w/o contrast material Simón Tellez Work Phone: Start: 04-21-2024 Radex foot complete minimum 3 views Jenn Yoon OUTBOARD TECHNICIAN.CEMENT DESPATCH OPERATOR Work Phone: Start: 02-25-2024 Ct abdomen & pelvis w/o contrast material Divina Mejias OUTBOARD TECHNICIAN.CEMENT DESPATCH OPERATOR Work Phone: Start: 02-22-2024 Urnls dip stick/tablet rgnt auto w/o microscopy Divina Mejias OUTBOARD TECHNICIAN.CEMENT DESPATCH OPERATOR Work Phone: Start: 02-12-2024 Us abdominal real time w/image limited Cezar Romo PA-C Work Phone: Start: 02-11-2024 Radiologic exam abdomen 2 views Cezar Romo PA-C Work Phone: Start: 02-11-2024 Radiologic exam chest 2 views Cezar Romo PA-C Work Phone: Start: 02-05-2024 Us retroperitoneal real time w/image complete Cezar Romo PA-C Work Phone: Start: 02-05-2024 Urnls dip stick/tablet rgnt auto w/o microscopy Cezar Romo PA-C Work Phone: Start: 01-30-2024 SARS-CoV-2, Influenza & RSV (PCR) Start: 01-30-[address] Michelle Wilcox Work Phone: Start: 01-30-2024 Computed tomography of abdomen and pelvis with intravenous contrast Start: 01-30-2024 Plain chest X-ray Start: 01-21-2024 Radex spine cervical 4 or 5 views Cezar Romo PA-C Work Phone: Start: 05-22-2022 Ct abdomen & pelvis w/contrast material Michelle Wilcox MD Work Phone: Start: 05-10-2022 CT of head without contrast Dr. Michelle Wilcox Work Phone: Start: 04-26-2022 Us retroperitoneal real time w/image complete Michelle Wilcox MD Work Phone: Start: 04-07-[address] Michelle Wilcox Work Phone: Start: 02-13-2022 CT of abdomen and pelvis without contrast Dr. Michelle Wilcox Work Phone: Start: 02-13-[address] Michelle Wilcox Work Phone: Start: 02-05-2022 Bacteria identified in Blood by Culture Dr. Michelle Wilcox Work Phone: Start: 02-05-[address] Michelle Wilcox Work Phone: Start: 01-26-2022 Bacteria identified in Blood by Culture Dr. Michelle Wilcox Work Phone: Start: 01-26-[address] Michelle Wilcox Work Phone: Start: 01-26-2022 End: 01-26-[address] Michelle Wilcox Work Phone: Start: 01-26-2022 CT of abdomen and pelvis without contrast Dr. Michelle Wilcox Work Phone: Start: 01-26-2022 Plain chest X-ray Dr. Michelle Wilcox Work Phone: Start: 08-08-2021 Radex hand minimum 3 views Adeola noguera DO Work Phone: Start: 12-26-2020 Radiologic exam chest single view Adeola Vogel Work Phone: Start: 12-26-2020 Ecg routine ecg w/least 12 lds w/i&r Adeola Vogel Work Phone: Start: 09-01-2020 Radex spine cervical 4 or 5 views Leland Conner DO Work Phone: Start: 06-18-2020 Ct head/brain w/o contrast material Venkata Linares Work Phone: Start: 06-18-2020 Ct maxillofacial w/o contrast material Venkata Linares Work Phone: Start: 06-18-2020 Ct soft tissue neck w/o contrast material Venkata Linares Work Phone: Bacteria identified in Blood by Culture Dr. Michelle Wilcox Work Phone: H/O: hysterectomy History of hysterectomy Vaughn Shrestha RESIDENTIAL CHILD CARE COUNSELOR Work Phone: Urine culture Dr. Michelle schafer Work Phone: Viral antigen assay Dr. Arnold Wilcox Work Phone: Plan of Treatment Date Care Activity Detail Author Start: 07-05-2034 Urine microalbumin profile DTaP,Tdap,Td Vaccine (6 - Td or Tdap) [facility] Start: 07-16-2025 End: 07-16-2025 Patient encounter procedure 07/16/2025 5:00 PM EDT Appointment [facility] [address] [place] [address] Dx: UTI symptoms [R39.9]; History of kidney stones [Z87.442]; Left flank pain [R10.9]; Microscopic hematuria [R31.29] [facility] Comment on above: Dx: UTI symptoms [R3 9.9]; History of kidney stones [Z87.442]; Left flank pain [R10.9]; Microscopic hematuria [R31.29] Start: 07-13-2025 Influenza vaccination [facility] Start: 07-08-2025 End: 07-08-2025 Patient encounter procedure 07/08/2025 4:00 PM EDT Appointment [facility] [address] [place] [address] [id number] [facility] Comment on above: CCN APPROVED Start: 03-31-2025 End: 03-31-2025 Patient encounter procedure 03/31/2025 1:40 PM EDT Office Visit [facility] [address] [place] [address] Michelle Wilcox MD [address] [place] [address] follow up [facility] Comment on above: follow up Start: 03-28-2025 [facility] Start: 03-03-2025 End: 03-03-2025 Patient encounter procedure 03/03/2025 2:40 PM EDT Office Visit [facility] [address] [place] [address] Michelle Wilcox MD [address] [place] [address] 3 month follow up [facility] Comment on above: 3 month follow up Start: 03-03-2025 End: 06-02-2025 Bacteria identified in Urine by Culture BACTERIAL CULTURE, URINE Microbiology Routine Stress incontinence Expected: 03/03/2025, Expires: 06/02/2025 [facility] Comment on above: Expected: 03/03/2025 , Expires: 06/02/2025 Start: 03-03-2025 End: 06-02-2025 Urinalysis complete panel - Urine URINALYSIS, WITH MICROSCOPIC Lab Routine Stress incontinence Expected: 03/03/2025, Expires: 06/02/2025 [facility] Work Phone: Comment on above: Expected: 03/03/2025 , Expires: 06/02/2025 Start: 12-02-2024 End: 12-02-2024 Patient encounter procedure 12/02/2024 2:00 PM EST Office Visit Urology [address] [place] [address] Refugio Isaacs MD [address] [place] [id number] Stress incontinence of urine [N39.3]; History of kidney stones [Z87.442]; History of hysterectomy [Z90.710] Urology Comment on above: Stress incontinence of urine [N39.3]; History of kidney stones [Z87.442]; History of hysterectomy [Z90.710] Start: 08-04-2024 End: 08-04-2024 Patient encounter procedure 08/04/2024 2:00 PM EDT Office Visit [facility] [address] [place] [address] Michelle Wilcox MD [address] [place] [address] 4 week follow up [facility] [place] Comment on above: 4 week follow up Start: 08-01-2024 End: 08-01-2024 Patient encounter procedure 08/01/2024 8:20 AM EDT Office Visit [facility] [address] [place] [address] Michelle Wilcox MD [address] [place] [address] 4 week follow up [facility] Comment on above: 4 week follow up Start: 07-25-2024 End: 07-25-2024 Patient encounter procedure 07/25/2024 1:00 PM EDT Office Visit [facility] [address] [place] [address] [place] [address] [place] [address] Cut of finger [S61.219A] [facility] Comment on above: Cut of finger [S61.2 19A] Start: 07-13-2024 Covid-19 Vaccine ( season) Covid-19 Vaccine () [facility] Start: 07-13-2024 Covid-19 Vaccine () Covid-19 Vaccine () [facility] Start: 07-13-2024 Influenza vaccination [facility] Start: 07-03-2024 End: 10-02-2024 25-hydroxyvitamin D3 [Mass/volume] in Serum or Plasma [facility] Work Phone: Comment on above: Expected: 07/03/2024 , Expires: 10/02/2024 Start: 07-03-2024 End: 10-02-2024 Cobalamin (Vitamin B12) [Mass/volume] in Serum or Plasma [facility] Comment on above: Expected: 07/03/2024 , Expires: 10/02/2024 Start: 07-03-2024 End: 10-02-2024 Comprehensive metabolic 2000 panel - Serum or Plasma [facility] Comment on above: Expected: 07/03/2024 , Expires: 10/02/2024 Start: 07-03-2024 End: 10-02-2024 Ferritin [Mass/volume] in Serum or Plasma [facility] Comment on above: Expected: 07/03/2024 , Expires: 10/02/2024 Start: 07-03-2024 End: 10-02-2024 Iron and Iron binding capacity panel - Serum or Plasma [facility] Comment on above: Expected: 07/03/2024 , Expires: 10/02/2024 Start: 06-09-2024 End: 06-09-2024 Patient encounter procedure 06/09/2024 11:00 AM EDT Office Visit Podiatry [address] [place] [address] Simón Tellez [address] [place] [address] 1 MONTH FOLLOW UP L FOOT FRACTURE Podiatry Comment on above: 1 MONTH FOLLOW UP L FOOT FRACTURE Start: 05-14-2024 End: 05-30-2025 XR Foot - left AP and Lateral and oblique XR FOOT GENERAL 3V AP/LAT/OBL LEFT Radiology Routine Closed fracture of left foot, initial encounter Expected: 05/14/2024, Expires: 05/30/2025 [facility] Comment on above: Expected: 05/14/2024 , Expires: 05/30/2025 Start: 05-07-2024 End: 05-07-2024 ambulatory 05/07/2024 4:00 PM EDT [facility] [address] [address] Simón Tellez [address] [place] [address] f/u to review foot CT Podiatry Comment on above: f/u to review foot C T Start: 05-06-2024 End: 05-06-2024 Patient encounter procedure 05/06/2024 2:00 PM EDT Office Visit Podiatry [address] [place] [address] Simón Tellez [address] [place] [address] 1 wk f/u fracture, CAST CHANGE Podiatry Comment on above: 1 wk f/u fracture, C AST CHANGE Start: 04-29-2024 End: 04-29-2024 Patient encounter procedure 04/29/2024 2:45 PM EDT Office Visit Podiatry [address] [place], [place] [id number] Simón Tellez [address] [place] [address] 1 week follow up ankle fracture Podiatry Comment on above: 1 week follow up ank le fracture Start: 04-25-2024 End: 04-25-2024 Patient encounter procedure 04/25/2024 2:00 PM EDT Office Visit Podiatry [address] [place] [address] Simón Tellez [address] [place] [address] left ankle fracture Podiatry Comment on above: left ankle fracture Start: 02-11-2024 End: 05-12-2024 Bacteria identified in Urine by Culture [facility] Work Phone: Comment on above: Expected: 02/11/2024 , Expires: 05/12/2024 Start: 02-11-2024 End: 05-12-2024 Serotonin [Mass/volume] in Serum [facility] Work Phone: Comment on above: Expected: 02/11/2024 , Expires: 05/12/2024 Start: 02-08-2024 Blood chemistry [facility] Start: 02-07-2024 Blood chemistry [facility] Start: 02-06-2024 Blood chemistry [facility] Start: 02-05-2024 Blood chemistry [facility] Start: 02-04-2024 Blood chemistry [facility] Start: 02-03-2024 Blood chemistry [facility] Start: 02-02-2024 Patient discharge [facility] Start: 02-01-2024 Inhalation therapy procedure [facility] Start: 01-31-2024 Care planning and pr oblem solving actions [facility] Start: 01-31-2024 Provision of activit y privileges [facility] Start: 01-30-2024 Following clinical pathway protocol [facility] Start: 01-30-2024 Ambulation without limitation [facility] Start: 01-30-2024 Assessment of risk o f venous thromboembolism [facility] Start: 01-30-2024 Consultation [facility] Start: 01-30-2024 Insertion of cathete r into peripheral vein [facility] Start: 01-30-2024 Patient referral to dietitian [facility] Start: 01-30-2024 Providing care accor ding to standard [facility] Start: 01-30-2024 [facility] Start: 01-30-2024 Hospital admission, emergency, from emergency room, medical nature [facility] Start: 01-30-2024 Verification routine [facility] Start: 01-30-2024 Admission procedure [facility] Start: 01-30-2024 Bacteria identified in Blood by Culture Blood Culture [facility] Start: 01-30-2024 Bacteria identified in Urine by Culture [facility] Start: 01-30-2024 End: 01-30-2024 Blood culture [facility] Start: 01-30-2024 [facility] Start: 01-30-2024 [facility] Start: 01-21-2024 End: 04-21-2024 25-hydroxyvitamin D3 [Mass/volume] in Serum or Plasma [facility] Work Phone: Comment on above: Expected: 01/21/2024 , Expires: 04/21/2024 Start: 01-21-2024 End: 04-21-2024 CBC W Auto Differential panel - Blood [facility] Work Phone: Comment on above: Expected: 01/21/2024 , Expires: 04/21/2024 Start: 01-21-2024 End: 04-21-2024 Cobalamin (Vitamin B12) [Mass/volume] in Serum or Plasma [facility] Work Phone: Comment on above: Expected: 01/21/2024 , Expires: 04/21/2024 Start: 01-21-2024 End: 04-21-2024 Comprehensive metabolic 2000 panel - Serum or Plasma [facility] Work Phone: Comment on above: Expected: 01/21/2024 , Expires: 04/21/2024 Start: 01-21-2024 End: 04-21-2024 Thyrotropin [Units/volume] in Serum or Plasma [facility] Work Phone: Comment on above: Expected: 01/21/2024 , Expires: 04/21/2024 Start: 12-19-2023 [facility] Start: 07-13-2023 Covid-19 Vaccine () Covid-19 Vaccine () [facility] Start: 07-13-2023 Influenza vaccination Influenza Vacc ine (#1) [facility] Start: 08-17-2022 Urine microalbumin profile DTAP,TDAP,TD (5 - Tdap) [facility] Comment on above: Postponed from 06/27 (Declined at this time) Start: 07-13-2022 Influenza vaccination [facility] Start: 05-20-2022 End: 07-20-[address] ROUT UR [facility] Work Phone: Comment on above: Expected: 05/20/2022 , Expires: 07/20/2022 Start: 05-19-2022 COVID-19 VACCINE (3 - Booster for Pfizer series) COVID-19 VACCINE (3 - Booster for Pfizer series) [facility] Start: 05-10-2022 [facility] Work Phone: Start: 04-16-2022 [facility] Work Phone: Start: 04-07-2022 Anes transurethral w/urethrocystoscopy nos ANESTH BLADDER SURGERY [facility] Work Phone: Start: 04-07-2022 Cysto bladder w/uret eral catheterization CYSTOSCOPY & URETER CATHETER [facility] Work Phone: Start: 04-07-2022 Patient discharge [facility] Work Phone: Start: 02-14-2022 COVID-19 VACCINE (3 - Booster for Pfizer series) COVID-19 VACCINE (3 - Booster for Pfizer series) [facility] Start: 02-13-2022 Basic metabolic pane l calcium total METABOLIC PANEL TOTAL CA [facility] Work Phone: Start: 02-13-2022 Blood count complete auto&auto difrntl wbc COMPLETE CBC W/AUTO DIFF WBC [facility] Work Phone: Start: 02-13-2022 Ct abdomen & pelvis w/o contrast material CT ABD & PELVIS W/O CONTRAST [facility] Work Phone: Start: 02-13-2022 Culture bacterial quanttative colony count urine URINE CULTURE/COLONY COUNT [facility] Work Phone: Start: 02-13-2022 Emergency department visit moderate severity EMERGENCY DEPT VISIT [facility] Work Phone: Start: 02-13-2022 Iv infusion hydratio n each additional hour HYDRATE IV INFUSION ADD-ON [facility] Work Phone: Start: 02-13-2022 Ther proph/dx njx iv push single/1st sbst/drug THER/PROPH/DIAG INJ IV PUSH [facility] Work Phone: Start: 02-13-2022 Therapeutic injectio n iv push each new drug TX/PRO/DX INJ NEW DRUG ADDON [facility] Work Phone: Start: 02-13-2022 Urnls dip stick/tabl et reagent auto microscopy URINALYSIS AUTO W/SCOPE [facility] Work Phone: Start: 02-05-2022 [facility] Work Phone: Start: 01-28-2022 Patient discharge [facility] Work Phone: Start: 01-26-2022 Ambulation without limitation [facility] Work Phone: Start: 01-26-2022 Assessment of risk o f venous thromboembolism [facility] Work Phone: Start: 01-26-2022 Consultation [facility] Work Phone: Start: 01-26-2022 Insertion of cathete r into peripheral vein [facility] Work Phone: Start: 01-26-2022 Providing care accor ding to standard [facility] Work Phone: Start: 01-26-2022 [facility] Work Phone: Start: 01-26-2022 Following clinical pathway protocol [facility] Work Phone: Start: 01-26-2022 Admission procedure [facility] Work Phone: Start: 01-17-2022 COVID-19 VACCINE (3 - Pfizer risk series) COVID-19 VACCINE (3 - Pfizer risk series) [facility] Start: 07-13-2021 Influenza vaccination Flu vaccine (# 1) [facility] Work Phone: Start: 2021 HPV TESTING HPV TESTING [facility] Start: 2021 Screening for malign ant neoplasm of cervix HPV Testing [facility] Start: 07-13-2020 Influenza vaccination Flu vaccine (# 1) [place], [place] Start: 2018 HPV Vaccine (1 - 3-d ose SCDM series) HPV Vaccine (1 - 3-dose SCDM series) [facility] Start: 10-28-2016 Screening for malign ant neoplasm of cervix Cervical cancer screen [place], [place] Start: 2012 PAP TESTING PAP TESTING [facility] Start: 2012 Screening for malign ant neoplasm of cervix [facility] Start: 2010 DTaP/Tdap/Td vaccine (5 - Tdap) DTaP/Tdap/Td vaccine (5 - Tdap) [place] Start: 2010 Hepatitis B Vaccine (1 of 3 - 19+ 3-dose series) Hepatitis B Vaccine (1 of 3 - 19+ 3-dose series) [facility] Start: 2010 ONE PNEUMOVAX PRIOR TO AGE 65 ONE PNEUMOVAX PRIOR TO AGE 65 [facility] Start: 2010 SHINGRIX VACCINE (1 of 2) YOO GRIX VACCINE (1 of 2) [facility] Start: 2006 HIV screening HIV screen [place], [place] Start: 2003 COVID-19 Vaccine (1) COVID-19 Vaccin e (1) [facility] Work Phone: Start: 2002 DTaP/Tdap/Td vaccine (5 - Tdap) DTaP/Tdap/Td vaccine (5 - Tdap) [facility] Work Phone: Start: [address] [facility] Start: 1997 PNEUMOCOCCAL (1 - PCV) PNEUMOCOCCAL (1 - PCV) [facility] Start: 1997 Pneumococcal 0-64 ye ars Vaccine (1 of 1 - PPSV23) Pneumococcal 0-64 years Vaccine (1 of 1 - PPSV23) [place], [place] Start: 1997 Pneumococcal 0-64 ye ars Vaccine (1 of 2 - PPSV23) Pneumococcal 0-64 years Vaccine (1 of 2 - PPSV23) [facility] Work Phone: Start: 1992 Varicella vaccine (1 of 2 - 2-dose childhood series) [place], [place] Start: 1991 HEPATITIS B (1 of 3 - 3-dose series) HEPATITIS B (1 of 3 - 3-dose series) [facility] Start: 1991 Hepatitis C screening Hepatitis C sc reen [facility] Work Phone: Bacteria identified in Urine by Culture Urine Culture [facility] Work Phone: Bacteria identified in Urine by Culture URINE CULTURE Microbiology Routine Abnormal finding of kidney Pyelonephritis of right kidney 02/05/2024 3:[address] [facility] Work Phone: Bacteria identified in Urine by Culture BACTERIAL CULTURE, URINE Microbiology Routine UTI symptoms 07/07/2025 10:[address] [facility] Clostridioides diffi cile toxin genes [Presence] in Stool by ALEX with probe detection C. DIFFICILE PCR Lab Routine Epigastric burning sensation History of colitis Diarrhea, unspecified type Ordered: 02/11/2024 [facility] Work Phone: Comment on above: Ordered: 02/11/2024 End: 06-06-2022 COLONOSCOPY DIAGNOSTIC COLONOSCOPY DIAGNOSTIC Endoscopy Routine Left sided abdominal pain 1 Occurrences starting 06/06/2022 until 06/06/2022 [facility] Work Phone: Comment on above: 1 Occurrences starti ng 06/06/2022 until 06/06/2022 End: 06-19-2023 Ct abdomen & pelvis w/contrast material CT ABD/PEL W IVCON Radiology STAT Left lower quadrant pain Left upper quadrant abdominal pain 1 Occurrences starting 05/20/2022 until 06/19/2023 [facility] Work Phone: Comment on above: 1 Occurrences starti ng 05/20/2022 until 06/19/2023 End: 03-23-2025 CT Abdomen and Pelvis WO contrast CT FLANK WO IVCON Radiology STAT Left flank pain Abnormal US (ultrasound) of abdomen 1 Occurrences starting 02/22/2024 until 03/23/2025 [facility] Work Phone: Comment on above: 1 Occurrences starti ng 02/22/2024 until 03/23/2025 End: 08-06-2026 CT Abdomen and Pelvis WO contrast CT FLANK WO IVCON Radiology STAT UTI symptoms History of kidney stones Left flank pain Microscopic hematuria 1 Occurrences starting 07/07/2025 until 08/06/2026 [facility] Work Phone: Comment on above: 1 Occurrences starti ng 07/07/2025 until 08/06/2026 EKG 12 Lead - Chest Pain EKG 12 Lead - Chest Pain ECG STAT 12/26/2020 1:36 PM EST [facility] Work Phone: End: 01-20-2025 EMG(NEURO/NI) EMG(NEURO/NI) EMG Routine Pain of left upper extremity Paresthesias Cervicalgia 1 Occurrences starting 01/21/2024 until 01/20/2025 [facility] Work Phone: Comment on above: 1 Occurrences starti ng 01/21/2024 until 01/20/2025 ENTERIC BACTERIAL PA MERARI BY PCR ENTERIC BACTERIAL PANEL BY PCR Lab Routine History of colitis Diarrhea, unspecified type Ordered: 02/11/2024 [facility] Work Phone: Comment on above: Ordered: 02/11/2024 FECAL LACTOFERRIN/LEUKOCYTES FECAL LACTOFERRIN/LEUKOCYTES Lab Routine Epigastric burning sensation Hot flashes History of colitis Diarrhea, unspecified type Ordered: 02/11/2024 [facility] Work Phone: Comment on above: Ordered: 02/11/2024 Giardia lamblia+Cryptosporidium sp Ag [Presence] in Stool by Immunoassay CRYPTOSPORIDIUM AND GIARDIA ANTIGENS BY EIA Microbiology Routine Epigastric burning sensation History of colitis Diarrhea, unspecified type Ordered: 02/11/2024 [facility] Work Phone: Comment on above: Ordered: 02/11/2024 Helicobacter pylori Ag [Presence] in Stool by Immunoassay H PYLORI AG BY EIA,STOOL Microbiology Routine History of colitis Diarrhea, unspecified type Ordered: 02/11/2024 [facility] Work Phone: Comment on above: Ordered: 02/11/2024 Patient Education [facility] Work Phone: Patient referral [facility] Work Phone: End: 08-08-2021 Splint application Splint application Procedures Routine One Time for 1 Occurrences starting 08/08/2021 until 08/08/2021 [facility] Work Phone: Comment on above: One Time for 1 Occur rences starting 08/08/2021 until 08/08/[address] [facility] Work Phone: Comment on above: Release Upon Orderin g for 1 Occurrences starting 06/06/2022 End: 03-12-2025 US Abdomen RUQ US ABD RIGHT UPPER QUADRANT Radiology STAT Epigastric burning sensation Abnormal finding of kidney Hot flashes Chest pain, unspecified type 1 Occurrences starting 02/11/2024 until 03/12/2025 [facility] Work Phone: Comment on above: 1 Occurrences starti ng 02/11/2024 until 03/12/2025 End: 05-19-2023 US KIDNEY/BLADDER US KIDNEY/BLADDER Radiology Routine Kidney stones 1 Occurrences starting 04/19/2022 until 05/19/2023 [facility] Work Phone: Comment on above: 1 Occurrences starti ng 04/19/2022 until 05/19/2023 End: 03-12-2025 XR Chest PA and Lateral XR CHEST 2V FRONTAL/LAT Radiology STAT Epigastric burning sensation Hot flashes Chest pain, unspecified type 1 Occurrences starting 02/11/2024 until 03/12/2025 [facility] Work Phone: Comment on above: 1 Occurrences starti ng 02/11/2024 until 03/12/2025 End: 05-24-2025 XR Foot - left AP and Lateral and oblique XR FOOT GENERAL 3V AP/LAT/OBL LEFT Radiology Routine Closed fracture of left foot, initial encounter 1 Occurrences starting 04/24/2024 until 05/24/2025 [facility] Work Phone: Comment on above: 1 Occurrences starti ng 04/24/2024 until 05/24/2025 XR Foot - left AP an d Lateral and oblique XR FOOT GENERAL 3V AP/LAT/OBL LEFT Radiology Routine Closed fracture of left foot, initial encounter 04/29/2024 3:[address] [facility] Work Phone: End: 05-29-2025 XR Foot - left AP and Lateral and oblique XR FOOT GENERAL 3V AP/LAT/OBL LEFT Radiology Routine Closed fracture of left foot, initial encounter 1 Occurrences starting 04/29/2024 until 05/29/2025 [facility] Work Phone: Comment on above: 1 Occurrences starti ng 04/29/2024 until 05/29/2025 End: 01-01-2026 XR Ribs - bilateral 4 Views and Chest PA XR RIBS BILATERAL/CHEST 4V Radiology Routine Rib pain on right side 1 Occurrences starting 12/02/2024 until 01/01/2026 [facility] Work Phone: Comment on above: 1 Occurrences starti ng 12/02/2024 until 01/01/2026 XR Ribs - bilateral 4 Views and Chest PA XR RIBS BILATERAL/CHEST 4V Radiology Routine Rib pain on right side 12/02/2024 12:[address] [facility] End: 04-12-2026 XR Sacrum and Coccyx 3 Views XR SACRUM/COCCYX 3V AP/LAT Radiology Routine Acute bilateral low back pain with bilateral sciatica Injury of back, subsequent encounter 1 Occurrences starting 03/13/2025 until 04/12/2026 [facility] Work Phone: Comment on above: 1 Occurrences starti ng 03/13/2025 until 04/12/2026 XR Sacrum and Coccyx 3 Views XR SACRUM/COCCYX 3V AP/LAT Radiology Routine Acute bilateral low back pain with bilateral sciatica Injury of back, subsequent encounter 03/13/2025 4:23 PM EDT [facility] Immunizations Immunization Date Immunization Notes Care Provider Fa parker 07-05-2024 tetanus toxoid, redu quentin diphtheria toxoid, and acellular pertussis vaccine, adsorbed Dr. Michelle Wilcox MD Work Phone: [facility] 12-20-2021 COVID-19 vaccine, ag e 12+ yr (PFIZER-BIONTECH - MCCLURE TOP) Michelle Wilcox MD Work Phone: [facility] 11-29-2021 COVID-19 vaccine, ag e 12+ yr (PFIZER-BIONTECH - MCCLURE TOP) Michelle Wilcox MD Work Phone: [facility] Work Phone: 08-30-[address] Michelle Wilcox Work Phone: [facility] 08-30-2016 influenza virus vaccine, unspecified formulation Cezar Romo PA-C Work Phone: [facility] 09-08-2010 influenza virus vaccine, live, attenuated, for intranasal use Michelle Wilcox MD Work Phone: [facility] 02-07-1993 diphtheria, tetanus toxoids and acellular pertussis vaccine Michelle Wilcox MD Work Phone: [facility] 02-07-1993 haemophilus influenz ae type b vaccine, PRP-D conjugate Michelle Wilcox MD Work Phone: [facility] 02-07-1993 trivalent poliovirus vaccine, live, oral Michelle Wilcox MD Work Phone: [facility] 11-06-1992 measles, mumps and rubella virus vaccine Michelle Wilcox MD Work Phone: [facility] 03-17-1992 tuberculin skin test ; purified protein derivative solution, intradermal Michelle Wilcox MD Work Phone: [facility] 1991 diphtheria, tetanus toxoids and acellular pertussis vaccine Michelle Wilcox MD Work Phone: [facility] 1991 haemophilus influenz ae type b vaccine, PRP-D conjugate Michelle Wilcox MD Work Phone: [facility] 1991 diphtheria, tetanus toxoids and acellular pertussis vaccine Michelle Wilcox MD Work Phone: [facility] 1991 haemophilus influenz ae type b vaccine, PRP-D conjugate Michelle Wilcox MD Work Phone: [facility] 1991 trivalent poliovirus vaccine, live, oral Michelle Wilcox MD Work Phone: [facility] 1991 diphtheria, tetanus toxoids and acellular pertussis vaccine Michelle Wilcox MD Work Phone: [facility] 1991 trivalent poliovirus vaccine, live, oral Michelle Wilcox MD Work Phone: [facility] Payers Date Payer Category Payer Self-pay [id number] 2022 Unknown [id number] 2016 Medicaid [employer] [id number] 2016-Present [phone] [address] [place] [address] Medicaid [id number] 2016 Medicaid [id number] 2016 Unknown [id number] Unknown [id number] Unknown [id number] Unknown [id number] Social History Date Type Detail Facility Start: 06-18-2020 End: 09-30-2024 Tobacco smoking status HIIS Former smoker [facility] Work Phone: History of tobacco use Cigarette Smoker M [place], [place] Start: 06-18-2020 End: 09-30-2024 Tobacco use and exposure Never used [place], [place] Start: 06-18-2020 End: 07-07-2025 Alcohol intake Current drinker of alcohol (finding) [place] Start: 06-18-2020 Alcohol Comment once a month Charla Salena [place], [place] Start: 1990 Sex Assigned At Not on file [place], [place] Start: 08-01-2020 End: 06-13-2022 Exposure to SARS-CoV-2 (event) Not sure [place], [place] Start: 07-30-2021 End: 03-28-2025 Tobacco smoking status [facility] Current every day smoker [facility] Work Phone: History of tobacco use [facility] Start: 07-30-2021 End: 02-05-[address] [facility] Start: 09-08-2020 End: 04-19-2022 History SDOH Alcohol Frequency 2 [facility] Start: 01-27-2010 History SDOH Alcohol Comment OCCASIONALLY,BUT NOT WHILE [facility] Start: 09-08-2020 End: 04-19-2022 History SDOH Social Connections Buddhist 1 [facility] Start: 09-08-2020 End: 04-16-2022 History SDOH Social Connections Living 7 [facility] Start: 09-08-2020 History SDOH Physica l Activity DPW 0 [facility] Start: 09-08-2020 History SDOH Stress 3 [facility] Start: 09-08-[address] [facility] Start: 03-21-2016 End: 01-21-2024 Tobacco Comment approx [address] [facility] Start: 1990 Sex Assigned At Female C [facility] Start: 04-16-2022 End: 02-01-2024 Tobacco smoking status NHIS Unknown if ever smoked [facility] Start: 07-21-2019 Heavy [facility] Start: 07-21-2019 Marijuana [facility] Start: 07-21-2019 Alone [facility] Start: 09-25-2020 Vapor [facility] Start: 04-16-2022 History SDOH Social Connections Phone 5 [facility] Start: 04-16-2022 History SDOH Physica l Activity MPS 6 [facility] History of tobacco use Current smoker [facility] Work Phone: Start: 04-15-2022 End: 02-05-2024 Social connection and isolation panel [facility] Do you belong to any clubs or organizations such as adventist groups, unions, fraternal or athletic groups, or school groups? No [facility] Are you now , , , , never or living with a partner? Never [facility] How often to you hav e a drink containing alcohol? Monthly or less [facility] How many standard drinks containing alcohol do you have on a typical day? [address] [facility] How often do you hav e 6 or more drinks on 1 occasion? Less than monthly [facility] Start: 10-13-2012 How hard is it for y ou to pay for the very basics like food, housing, medical care, and heating Not hard at all [facility] Do you feel stress - tense, restless, nervous, or anxious, or unable to sleep at night because your mind is troubled all the time - these days [OSQ] Only a little [facility] (I/We) worried wheth er (my/our) food would run out before (I/we) got money to buy more. Sometimes true [facility] In the past 12 month s, was there a time when you were not able to pay the mortgage or rent on time? Yes [facility] Start: 12-18-2021 Gender identity Identifies as female gender (finding) [facility] Start: 12-18-2021 Sexual orientation Heterosexual (sin akhtar) [facility] How often to you hav e a drink containing alcohol? Never [facility] Do you feel stress - tense, restless, nervous, or anxious, or unable to sleep at night because your mind is troubled all the time - these days [OSQ] Not at all [facility] (I/We) worried wheth er (my/our) food would run out before (I/we) got money to buy more. Never true [facility] The food that (I/we) bought just didn't last, and (I/we) didn't have money to get more. Often true 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 EDUCATION TEACHER,CLIP 5MM LIGAMAX FDA Start: 08-04-2019 Appendectomy, laparoscopic RELOAD,STANDARD 45 [id number] ETH FDA Start: 08-04-2019 Appendectomy, laparoscopic VISUAL EDUCATION TEACHER,CLIP 5MM LIGAMAX FDA Start: 08-04-2019 Appendectomy, laparoscopic RELOAD,STANDARD 45 [id number] ETH FDA Start: 08-04-2019 Appendectomy, laparoscopic VISUAL EDUCATION TEACHER,CLIP 5MM LIGAMAX FDA Start: 08-04-2019 Appendectomy, laparoscopic RELOAD,STANDARD 45 [id number] ETH FDA Start: 08-04-2019 Appendectomy, laparoscopic VISUAL EDUCATION TEACHER,CLIP 5MM LIGAMAX FDA Start: 08-04-2019 Appendectomy, laparoscopic RELOAD,STANDARD 45 [id number] ETH FDA Start: 08-04-2019 Goals Date Patient Goal Desired Activity /State Functional Status Date Assessment Result Facility 02-02-2024 Functional status Ambulates;Up ad ondina [facility] Work Phone: 02-01-2024 Functional status None [facility] Work Phone: 01-28-2022 Functional status Ambulates [facility] Work Phone: Mental Status Date Assessment Result Facility 03-28-2025 Cognitive function Level Of Cons ciousness Awake;Alert;Appropriate;Follow s Commands [facility] Work Phone: 02-02-2024 Cognitive function Voice/Name [facility] Work Phone: 01-30-2024 Cognitive function Level Of Cons ciousness Awake;Alert [facility] Work Phone: 05-10-2022 Cognitive function Level Of Cons ciousness Awake;Alert;Appropriate [facility] Work Phone: 04-16-2022 Cognitive function Level Of Cons ciousness Awake;Alert;Appropriate;Follow s Commands [facility] Work Phone: 04-07-2022 Cognitive function Level Of Cons ciousness Appropriate;Drowsy [facility] Work Phone: 04-07-2022 Cognitive function Voice/Name [facility] Work Phone: 01-28-2022 Cognitive function Appropriate;Cooperativ e [facility] Work Phone: Clinical Notes 09-01-2020 to 09-08-2025 Telephone Encounter - Divina Mejias APRN.[facility] - 07/15/2025 6:49 PM EDTTelephone Encounter - Divina Mejias APRN.[facility] - 07/15/2025 6:49 PM EDTTelephone Encounter - Juanis Maloney RN - 07/15/2025 4:27 PM EDT Note Date & Type Note Facility 09-08-2025 Note HNO ID: [id number] Author: VIC DAVIS MD Service: ? Author Type: Physician Type: Progress Notes Filed: 09/08/2025 16:38 Note Text: Subjective Lanie Lisa is a 35 year old female. HPI Lanie Lisa is a 35-year-old female with a history of nephrolithiasis, presenting with left-sided back pain. Lanie reports a one-month history of left-sided back pain, which she believes is related to a previously identified non-obstructing nephrolithiasis. She describes the pain as aching and similar to previous episodes of nephrolithiasis. The pain is localized to the left flank and radiates superiorly. She suspects that the stone may be moving or that she is about to pass it, as the pain is consistent with her previous experiences of passing nephrolithiasis. She denies any right-sided back pain. A CT scan performed on 08/14/2025 revealed a small, non-obstructing nephrolithiasis on the left side, with no nephrolithiasis on the right side. She was experiencing similar pain at the time of the CT scan. She has not yet been seen by urology for this issue and has not received a call from them regarding an appointment. She is established with Dr. Oliveros, whom she last saw two years ago for nephrolithiasis, pyelonephritis, and an E. coli infection. She has been hospitalized multiple times for nephrolithiasis, with her last hospitalization occurring two years ago. She has not seen the hospital physician as an outpatient. Lanie has been managing her pain with oxycodone-acetaminophen, prescribed by Dr. Wilcox, her primary care physician. She received a prescription for five pills on 08/12/2025 and a previous prescription from [facility]. She reports that the pain is the same as when she saw [facility]. She has also been experiencing sciatica pain, which she describes as different from her current back pain. The sciatica pain occurs when she puts pressure on one side of her foot, causing pressure on the top of her buttock. She denies any issues with constipation or diarrhea. Lanie has a history of a hysterectomy and multiple laparoscopic surgeries for endometriosis. She inquires whether scar tissue from these surgeries could be contributing to her current pain. PAST MEDICAL HISTORY Diagnosis Date Acid reflux Arthritis LEFT WRIST Dysthymic disorder 03/2009 Depression (non-psychotic) Endometriosis Current Outpatient Medications Medication Sig oxyCODONE-acetaminophen (PERCOCET) 5-325 mg tablet Take 1 tablet by mouth every 8 hours as needed for pain for up to 7 days. No current facility-administered medications for this visit. ALLERGIES Allergen Reactions Hydrocodone-Acetami* GI Upset nausea, no vomiting FAMILY HISTORY Problem Relation Age of Onset Cancer Mother OVARIAN CANCER Osteoporosis Mother other (Other) Mother Crohn's disease Thyroid Father Heart Maternal Grandmother Diabetes Paternal Grandmother Diabetes Paternal Grandfather Cancer Maternal Aunt OVARIAN CANCER SOCIAL HISTORY[1] Review of Systems Objective BP 104/82 Pulse 91 Resp 16 Wt 44.5 kg (98 lb 1.7 oz) LMP 01/09/2017 SpO2 97% BMI 17.38 kg/m? Last 5 Encounter Wt Readings: Date: Wt: 09/08/2025 44.5 kg (98 lb 1.7 oz) 08/12/2025 43.5 kg (95 lb 12.8 oz) 07/07/2025 42.2 kg (93 lb 0.6 oz) 03/31/2025 43.2 kg (95 lb 3.2 oz) 03/13/2025 43.1 kg (95 lb) No waist measurement recorded Estimated body mass index is 17.38 kg/m? as calculated from the following: Height as of 09/30/24: 160 cm (5' 3). Weight as of this encounter: 44.5 kg (98 lb 1.7 oz). Last 5 Encounter BP Readings: Date: BP: 09/08/2025 104/82 08/12/2025 103/72 07/07/2025 98/58 03/31/2025 102/70 03/13/2025 102/69 Physical Exam Constitutional: Appearance: Normal appearance. HENT: Head: Normocephalic. Eyes: Conjunctiva/sclera: Conjunctivae normal. Cardiovascular: Rate and Rhythm: Normal rate and regular rhythm. Heart sounds: Normal heart sounds. Pulmonary: Effort: Pulmonary effort is normal. Breath sounds: Normal breath sounds. Abdominal: General: There is no distension. Tenderness: There is no abdominal tenderness. There is left CVA tenderness. There is no right CVA tenderness. Musculoskeletal: General: Tenderness (paravertebral muscles; tight muscles noted) present. Right lower leg: No edema. Left lower leg: No edema. Skin: General: Skin is warm and dry. Neurological: General: No focal deficit present. Mental Status: She is alert and oriented to person, place, and time. Psychiatric: Mood and Affect: Mood normal. Behavior: Behavior normal. Thought Content: Thought content normal. Judgment: Judgment normal. CT Flank reviewed # Left flank pain (R10.A2) # Kidney stone on left side (N20.0) - Acute left flank pain consistent with prior nephrolithiasis episodes; CT on 08/14/25 showed non-obstructing left renal calculus. - Prior Flomax trial ineffective. - Refill oxy (more content not included)... [facility] 08-14-2025 Note HNO ID: [id number] Author: DONYA BRANCH RT(R) Service: ? Author Type: Health Consultant Type: Progress Notes Filed: 08/14/2025 14:59 Note Text: Radiology Service Progress Note PATIENT NAME: Lanie Lisa DATE OF SERVICE: August 14, 2025 TIME: 2:58 PM PATIENT IDENTITY VERIFICATION COMPLETED USING TWO (2) IDENTIFIERS: Name and Date of confirmed by patient verbally. FALL SCREENING: Has the patient had 2 falls in the last year or 1 fall with injury or currently using an Ambulatory Assistive Device (Walker, Cane, Wheelchair, Crutches, etc.)? No PATIENT GENDER DATA: Assigned female at . status: : No status: NO. PATIENT RELEVANT IMPLANT DATA REVIEWED: Not Applicable PATIENT PRESENTS WITH AN IMPLANTABLE OR ATTACHED INDUSTRIAL MAINTENANCE REPAIRER: No RADIOLOGY DEPARTMENT: CT; Exam(s) Completed: Flank Study. Anesthesia: No PERIPHERAL IV DATA: Not applicable SIGNED BY: RT Raymundo(R) August 14, 2025 2:58 PM [facility] 08-12-2025 Note HNO ID: [id number] Author: MICHELLE WILCOX MD Service: ? Author Type: Physician Type: Progress Notes Filed: 08/12/2025 10:18 Note Text: Reason for Visit Follow up JANELL Dela Cruz is a 35-year-old female presenting with acute onset of back pain and dysuria. Lanie reports a recent onset of back pain and dysuria, which she suspects may be related to kidney stones. She recalls passing a kidney stone last Sunday, describing significant bloating and back pain prior to the event. She experienced relief after passing the stone but continues to feel soreness. Yesterday, she noted severe back pain on the opposite side from where she previously passed the stone, describing it as miserable and similar to her prior kidney stone pain. She also reports dysuria, describing a burning sensation during urination. She denies any history of UTIs. She has been managing her son's recent scaphoid fracture, which has added to her stress. She had to take time off work yesterday and today to care for him. She denies any other symptoms or medical conditions. SOCIAL HISTORY[1] Past medical history, appointments, medications, allergies reviewed. Pertinent Lab/Diagnostic Studies are reviewed and discussed today Current Outpatient Medications: rizatriptan (MAXALT) 5 mg tablet phenazopyridine (PYRIDIUM) 100 mg tablet oxyCODONE-acetaminophen (PERCOCET) 5-325 mg tablet flavoxATE (URISPAS) 100 mg tablet tamsulosin (FLOMAX) 0.[address] (PROTONIX) 20 mg tablet Health Maintenance Hepatitis B Vaccine(1 of 3 - 19+ 3-dose series) Cervical Cancer Screening HPV Vaccine(1 - 3-dose SCDM series)@ Review Of Systems Gastrointestinal: (+) abdominal bloating Genitourinary: (+) dysuria, (+) urinary hesitancy, (+) flank pain Musculoskeletal: (+) back pain Physical Exam BP 103/72 Pulse 85 Temp 36.6 ?C (97.9 ?F) (Oral) Resp 16 Wt 43.5 kg (95 lb 12.8 oz) LMP 01/09/2017 BMI 16.97 kg/m? GENERAL: NAD, alert and oriented SKIN: unremarkable, no rash or skin lesions. HEAD: normocephalic EYES: PERRLA, EOMI, conjunctiva clear EARS: external ears normal, canals clear, TM's normal. NOSE/SINUSES: Nares normal. Septum midline. OROPHARYNX: lips, mucosa, and tongue normal, good dentition. No oral lesions noted. NECK: Supple, no lymphadenopathy, normal thyroid, no carotid bruits. LUNGS: Clear to auscultation bilaterally, no wheezes/rhonchi/rales. HEART: Regular rate and rhythm, no murmurs. No ectopy. EXTREMITIES: Normal, No deformities, No skin discoloration, No edema. NEURO: Awake, alert and oriented x3, cranial nerves II-XII grossly intact, normal gait, no involuntary motions Labs: - Urinalysis (dipstick): - Blood: trace - pH: 7 - Nitrite: negative - Leukocyte esterase: negative - Protein: negative Assessment and Plan 1. Recurrent kidney stones (N20.0) 2. Dysuria (R30.0) Recent urinalysis shows trace hematuria, consistent with recurrent nephrolithiasis; no evidence of UTI. - Order CT KUB with IV contrast, stone protocol. - Start Pyridium TID for 5 days for dysuria. - Start Urispas; 3 refills provided. - Start Bentyl. - Prescribe oxycodone 5 tablets for severe pain. - Refer to nephrology or urology for recurrent nephrolithiasis. - Advised patient that acetaminophen is the same as Tylenol. Voice recognition software was used to compose this office note. Please excuse any unintended typographical errors. 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 Patient/authorized sales representative wire rope agreed to proceed Michelle Wilcox MD [1] Social History Tobacco Use Smoking status: Former Types: Cigarettes Smokeless tobacco: Never Tobacco comments: approx 2 cig per day Vaping Use Vaping status: current everyday user Substances: Nicotine, Flavoring Devices: Refillable tank Substance Use Topics Alcohol use: Yes Comment: OCCASIONALLY,BUT NOT WHILE Drug use: No [facility] 07-15-2025 Telephone encounter Note Noted Divina Mejias APRN.CNP [facility] Work Phone: 07-15-2025 Miscellaneous Notes Noted Divina Mejias APRN.CNP Called and spoke with pt. In talking with pt and seeing her urine results that shows pt has a UTI discussed her antibiotics with her. Pt states she picked up the antibiotics on Sunday the when she saw Vaughn Shrestha but then a few days later was feeling better so she stopped taking them. Restarted them yesterday when the burning and stinging with urination came back. She thinks she was off of them for about 4 days. Pt failed to show for her first CT scan that was scheduled last Sunday. She is scheduled to get it tomorrow at 5 pm. Pt states she restarted the antibiotic yesterday, took 2 and 1 so far today and thinks she maybe has five or six pills left. Pt uses [facility] if further antibiotics needed. Pt aware that if her pain gets severe enough that she needs Percocet, she needs to go back to the ER for possible kidney stone. Otherwise pt given strict instructions when prescribed an antibiotic to take the full prescription as this is what happens when you stop a few days in. Pt verbalizes understanding. Patient calling to check status of refill. Informed patient of below information. Patient has an appointment for CT scan tomorrow (). Patient needs to get CT scan completed. If she is still having severe pain even after treatment of UTI she should be seen prior to further narcotics being prescribed. Thank you Divina Mejias APRN.SHIRA Prescription Refill Information The patient has been identified by name and date of : Yes Caregiver verified no other encounters exist for this prescription request: Yes Caregiver confirmed with patient/requestor that no other refills are due, in the near future, with this provider at this time: Yes The last office visit in the department: 07/07/2025 Does the patient have a future office visit with this provider/department: No Requested Prescriptions Pending Prescriptions Disp Refills oxyCODONE-acetaminophen (PERCOCET) 5-325 mg tablet 21 tablet 0 Sig: Take 1 tablet by mouth every 8 hours as needed for pain for up to 7 days. Lois Villalta July 14, 2025 5:50 PM documented in this encounter [facility] 07-15-2025 Telephone encounter Note Called and spoke with pt. In talking with pt and seeing her urine results that shows pt has a UTI discussed her antibiotics with her. Pt states she picked up the antibiotics on Sunday when she saw Vaughn Shrestha but then a few days later was feeling better so she stopped taking them. Restarted them yesterday when the burning and stinging with urination came back. She thinks she was off of them for about 4 days. Pt failed to show for her first CT scan that was scheduled last Sunday. She is scheduled to get it tomorrow at 5 pm. Pt states she restarted the antibiotic yesterday, took 2 and 1 so far today and thinks she maybe has five or six pills left. Pt uses [facility] if further antibiotics needed. Pt aware that if her pain gets severe enough that she needs Percocet, she needs to go back to the ER for possible kidney stone. Otherwise pt given strict instructions when prescribed an antibiotic to take the full prescription as this is what happens when you stop a few days in. Pt verbalizes understanding. [facility] 07-15-2025 Telephone encounter Note Patient calling to check status of refill. Informed patient of below information. Patient has an appointment for CT scan tomorrow (). [facility] 07-15-2025 Telephone encounter Note Patient needs to get CT scan completed. If she is still having severe pain even after treatment of UTI she should be seen prior to further narcotics being prescribed. Thank you Divina Mejias APRN.SHIRA [facility] 07-14-2025 Telephone encounter Note Prescription Refill Information The patient has been identified by name and date of : Yes Caregiver verified no other encounters exist for this prescription request: Yes Caregiver confirmed with patient/requestor that no other refills are due, in the near future, with this provider at this time: Yes The last office visit in the department: 07/07/2025 Does the patient have a future office visit with this provider/department: No Requested Prescriptions Pending Prescriptions Disp Refills oxyCODONE-acetaminophen (PERCOCET) 5-325 mg tablet 21 tablet 0 Sig: Take 1 tablet by mouth every 8 hours as needed for pain for up to 7 days. Lois Villalta July 14, 2025 5:[address] [facility] 07-14-2025 Telephone encounter Note Spoke with patient and rescheduled CT for this week. Patient is requesting a refill of pain meds. Please advise. Alessia Brewer [facility] 07-14-2025 Miscellaneous Notes Spoke with patient and rescheduled CT for this week. Patient is requesting a refill of pain meds. Please advise. Alessia Brewer CT not completed. Does have UTI. documented in this encounter [facility] 07-10-2025 Progress note Formatting of t his note might be different from the original. CT not completed. Does have UTI. [facility] 07-07-2025 Instructions Vaughn Shrestha APRN.CNS - 07/07/2025 10:31 AM EDT - Non-contrast CT scan scheduled today to locate and size any kidney stones. - Strain all of your urine through the provided screen and save any stones for analysis. - Drink 64-80 ounces of fluids (water or other beverages you tolerate) daily to help flush out stones. - Take Ciprofloxacin as prescribed to treat your kidney infection; complete the full course. - Take tamsulosin (Flomax) once daily at the same time each day to help stones pass. - Take meloxicam once daily at the same time each day for pain relief until your discomfort improves. - Use oxycodone for breakthrough pain if needed and as directed. - You may soak in a warm Epsom salt bath if it helps ease your back and body aches. - Avoid any strenuous exertion until your pain and infection have resolved. - Referral sent to your urologist for follow-up care and stone management. Call Dr. Alfonso for and appointment - If your pain becomes unbearable or you cannot control it at home, go to the emergency department. documented in this encounter [facility] 07-07-2025 History of Presen t illness Narrative Subjective HPI Lanie Lisa is a 35 year old female.PMH significnt for ACTIVE PROBLEM LIST Acid Reflux Dysthymic Disorder Arthritis Acute Thoracic Myofascial Strain Anxiety Neurosis Tobacco Use Generalized Abdominal Pain Acute Superficial Gastritis Without Hemorrhage The patient is a 35-year-old female with history of pyelonephritis and nephrolithiasis, presenting for evaluation of acute left flank pain and dysuria. Left Flank Pain: - Onset 2 days ago. - Described as stabbing, achy pain, rated 7/10 in severity. - Localized to the left flank, similar to previous nephrolithiasis episodes. - Pain is colicky, and is not alleviated by massage or OTC treatments. - Lanie has taken oxycodone for pain management that she had at home - Without report of right flank pain. Dysuria: - Onset 2 days ago. - Described as severe burning sensation during micturition. - Denies visible hematuria. Urinary Frequency: - Onset 2 days ago. - Lanie reports increased urinary frequency and occasional urinary incontinence. - Denies nausea or emesis. Nephrolithiasis: - History of nephrolithiasis, with the last episode occurring last year. - Lanie has passed stones spontaneously in the past. - Followed by urologist Dr. Tierney Alfonso; last seen 2 years ago. - No history of lithotripsy or stent placement. Nephritis: - Reports history of nephritis, with three hospitalizations at [facility] for severe infections. Hysterectomy: - Lanie underwent total hysterectomy; denies possibility of . Dietary Intake: - Decreased appetite over the past 2 days. - Lanie is consuming cranberry juice and taking cranberry pills. ROS Constitutional: (+) fatigue, (+) chills, (+) body aches, (+) decreased appetite, (-) fever Gastrointestinal: (+) left abdominal pain Genitourinary: (+) left flank pain, (+) urinary frequency, (+) urinary incontinence, (+) dysuria, (-) hematuria Objective BP 98/58 Pulse 64 Temp 36.7 C (98 F) Resp 16 Wt 42.2 kg (93 lb 0.6 oz) LMP 01/09/2017 SpO2 99% BMI 16.48 kg/m Physical Exam Vitals and nursing note reviewed. Constitutional: General: She is not in acute distress. Appearance: She is well-developed. She is not diaphoretic. HENT: Head: Normocephalic and atraumatic. Eyes: Conjunctiva/sclera: Conjunctivae normal. Cardiovascular: Rate and Rhythm: Normal rate and regular rhythm. Heart sounds: Normal heart sounds. Pulmonary: Effort: Pulmonary effort is normal. Breath sounds: Normal breath sounds. Abdominal: General: Abdomen is flat. Bowel sounds are normal. Palpations: Abdomen is soft. Tenderness: There is left CVA tenderness. Comments: Lower left-sided abdominal pain, left sided colicky flank pain Skin: General: Skin is warm and dry. Neurological: General: No focal deficit present. Mental Status: She is alert and oriented to person, place, and time. Motor: No abnormal muscle tone. ALLERGIES Allergen Reactions Hydrocodone-Acetami* GI Upset nausea, no vomiting Current Outpatient Medications Medication Sig rizatriptan (MAXALT) 5 mg tablet Take 1 tablet by mouth as needed. May repeat dose after 2 hours if needed. Maximum daily dose is 30 mg per day. tamsulosin (FLOMAX) 0.4 mg Take 1 capsule by mouth daily at bedtime. meloxicam (MOBIC) 15 mg tablet Take 1 tablet by mouth once daily. as needed for pain. Take with food. ciprofloxacin HCl (CIPRO) 500 mg tablet Take 1 tablet by mouth two times a day for 7 days. antibiotic, take with food oxyCODONE-acetaminophen (PERCOCET) 5-325 mg tablet Take 1 tablet by mouth every 8 hours as needed for pain for up to [address] (PROTONIX) 20 mg tablet Take 1 tablet by mouth once daily for 14 days. (Patient not taking: Reported on 07/07/2025) No current facility-administered medications for this visit. PAST MEDICAL HISTORY Diagnosis Date Acid reflux Arthritis LEFT WRIST Dysthymic disorder 03/2009 Depression (non-psychotic) Endometriosis reports that she has quit smoking. Her smoking use included cigarettes. She has never used smokeless tobacco. She reports current alcohol use. She reports that she does not use drugs. Assessment and Plan 1. Left flank pain (R10.9) 2. History of kidney stones (Z87.442) 3. Renal colic on left side (N23) - Acute left-sided renal colic with history of nephrolithiasis; pain rated 7/10, similar to prior episodes. - Start tamsulosin (Flomax) to facilitate stone passage. - Start meloxicam for pain management; instructed to take daily until symptoms improve. - Prescribed oxycodone for breakthrough pain. - Advised to maintain high fluid intake (64-80 oz/day) to aid stone passage. - Educated on use of urine strainer to monitor for stone passage. - Advised to go to the ER if pain becomes unmanageable. - CT scan ordered to evaluate for nephrolithiasis. - Referral to urology for follow-up. 4. UTI symptoms (R39.9) 5. Urinary tract infection with hematuria, site unspecified (N39.0) 6. Microscopic hematuria (R31.29) 7. Malaise and fatigue (R53.81) 8. Chills (R68.83) - UTI confirmed by urinalysis; symptoms include dysuria, increased urinary frequency, urgency, and incontinence. - Start ciprofloxacin for UTI treatment. - Advised to abstain from exertional activity until symptoms resolve. - Discussed that UTI is not sexually transmissible. She notes history of hysterectomy and now with stress incontinence. Has seen gynecology/urology Dr. Tierney Alfonso in the past. Vaughn Shrestha APRN.ZEYNEP Medical Decision Making: Problems: Moderate: 1+ chronic illnesses with change Data: Unique test(s) ordered: 1 Risk: Moderate: Drug management Medical Decision Making Level: 4 - Moderate documented in this encounter [facility] 07-07-2025 Note HNO ID: [id number] Author: VAUGHN SHRESTHA APRN.RESIDENTIAL CHILD CARE COUNSELOR Service: ? Author Type: Nurse Specialist Type: Progress Notes Filed: 07/07/2025 10:43 Note Text: Subjective HPI Lanie Lisa is a 35 year old female.PMH significnt for ACTIVE PROBLEM LIST Acid Reflux Dysthymic Disorder Arthritis Acute Thoracic Myofascial Strain Anxiety Neurosis Tobacco Use Generalized Abdominal Pain Acute Superficial Gastritis Without Hemorrhage The patient is a 35-year-old female with history of pyelonephritis and nephrolithiasis, presenting for evaluation of acute left flank pain and dysuria. Left Flank Pain: - Onset 2 days ago. - Described as stabbing, achy pain, rated 7/10 in severity. - Localized to the left flank, similar to previous nephrolithiasis episodes. - Pain is colicky, and is not alleviated by massage or OTC treatments. - Lanie has taken oxycodone for pain management that she had at home - Without report of right flank pain. Dysuria: - Onset 2 days ago. - Described as severe burning sensation during micturition. - Denies visible hematuria. Urinary Frequency: - Onset 2 days ago. - Lanie reports increased urinary frequency and occasional urinary incontinence. - Denies nausea or emesis. Nephrolithiasis: - History of nephrolithiasis, with the last episode occurring last year. - Lanie has passed stones spontaneously in the past. - Followed by urologist Dr. Tierney Alfonso; last seen 2 years ago. - No history of lithotripsy or stent placement. Nephritis: - Reports history of nephritis, with three hospitalizations at [facility] for severe infections. Hysterectomy: - Lanie underwent total hysterectomy; denies possibility of . Dietary Intake: - Decreased appetite over the past 2 days. - Lanie is consuming cranberry juice and taking cranberry pills. ROS Constitutional: (+) fatigue, (+) chills, (+) body aches, (+) decreased appetite, (-) fever Gastrointestinal: (+) left abdominal pain Genitourinary: (+) left flank pain, (+) urinary frequency, (+) urinary incontinence, (+) dysuria, (-) hematuria Objective BP 98/58 Pulse 64 Temp 36.7 ?C (98 ?F) Resp 16 Wt 42.2 kg (93 lb 0.6 oz) LMP 01/09/2017 SpO2 99% BMI 16.48 kg/m? Physical Exam Vitals and nursing note reviewed. Constitutional: General: She is not in acute distress. Appearance: She is well-developed. She is not diaphoretic. HENT: Head: Normocephalic and atraumatic. Eyes: Conjunctiva/sclera: Conjunctivae normal. Cardiovascular: Rate and Rhythm: Normal rate and regular rhythm. Heart sounds: Normal heart sounds. Pulmonary: Effort: Pulmonary effort is normal. Breath sounds: Normal breath sounds. Abdominal: General: Abdomen is flat. Bowel sounds are normal. Palpations: Abdomen is soft. Tenderness: There is left CVA tenderness. Comments: Lower left-sided abdominal pain, left sided colicky flank pain Skin: General: Skin is warm and dry. Neurological: General: No focal deficit present. Mental Status: She is alert and oriented to person, place, and time. Motor: No abnormal muscle tone. ALLERGIES Allergen Reactions Hydrocodone-Acetami* GI Upset nausea, no vomiting Current Outpatient Medications Medication Sig rizatriptan (MAXALT) 5 mg tablet Take 1 tablet by mouth as needed. May repeat dose after 2 hours if needed. Maximum daily dose is 30 mg per day. tamsulosin (FLOMAX) 0.4 mg Take 1 capsule by mouth daily at bedtime. meloxicam (MOBIC) 15 mg tablet Take 1 tablet by mouth once daily. as needed for pain. Take with food. ciprofloxacin HCl (CIPRO) 500 mg tablet Take 1 tablet by mouth two times a day for 7 days. antibiotic, take with food oxyCODONE-acetaminophen (PERCOCET) 5-325 mg tablet Take 1 tablet by mouth every 8 hours as needed for pain for up to [address] (PROTONIX) 20 mg tablet Take 1 tablet by mouth once daily for 14 days. (Patient not taking: Reported on 07/07/2025) No current facility-administered medications for this visit. PAST MEDICAL HISTORY Diagnosis Date Acid reflux Arthritis LEFT WRIST Dysthymic disorder 03/2009 Depression (non-psychotic) Endometriosis reports that she has quit smoking. Her smoking use included cigarettes. She has never used smokeless tobacco. She reports current alcohol use. She reports that she does not use drugs. Assessment and Plan 1. Left flank pain (R10.9) 2. History of kidney stones (Z87.442) 3. Renal colic on left side (N23) - Acute left-sided renal colic with history of nephrolithiasis; pain rated 7/10, similar to prior episodes. - Start tamsulosin (Flomax) to facilitate stone passage. - Start meloxicam for pain management; instructed to take daily until symptoms improve. - Prescribed oxycodone for breakthrough pain. - Advised to maintain high fluid intake (64-80 oz/day) to aid stone passage. - Educated on use of urine strainer to monitor for stone pass (more content not included)... [facility] 03-31-2025 Note HNO ID: [id number] Author: MICHELLE WILCOX MD Service: ? Author Type: Physician Type: Progress Notes Filed: 03/31/2025 14:41 Note Text: Reason for Visit Migraine JANELL Dela Cruz is a 34-year-old female presenting for evaluation of anisocoria and recurrent migraines. Lanie reports a recent episode of anisocoria, which prompted an ED visit. She notes that her pupils were unequal in size, which was confirmed by a nurse who advised her to seek emergency care. During the ED visit, a CT scan of the head and an EKG were performed, both of which were reported as normal. The anisocoria began to resolve while she was at the hospital. She recalls taking Benadryl the night before the episode to aid sleep and wonders if this could be related. Lanie also reports a history of migraines that began approximately 1 month ago, occurring a couple of times per week. These migraines are characterized by severe, throbbing pain, photophobia, and nausea. She denies phonophobia or aura. The migraines are often present upon waking and can be triggered by stress. She manages the pain with Tylenol, taking up to 4 tablets to achieve relief. She distinguishes these migraines from other headaches, which she attributes to not wearing her glasses or contacts and are described as more behind her eyes. These headaches resolve once she wears her glasses. Additionally, Lanie reports intermittent sharp pains on one side of her head, which she describes as shooting from the back to the front and then fading away. She suspects these pains may be related to what she believes are pinched nerves in her neck. She also mentions recent nausea, cephalalgia, and mild chest pains on the day of the anisocoria episode. Lanie has a history of back pain for which she was prescribed steroids but did not take them, doubting their efficacy. She continues to experience back pain, which is exacerbated by heavy lifting at work. She has not been able to go to the gym due to her back pain, which has been a source of frustration and depression for her. She denies caffeine or artificial sugar consumption. Social History Tobacco Use Smoking status: Former Types: Cigarettes Smokeless tobacco: Never Tobacco comments: approx 2 cig per day Vaping Use Vaping status: current everyday user Substances: Nicotine, Flavoring Devices: RefBABADUble tank Substance Use Topics Alcohol use: Yes Comment: OCCASIONALLY,BUT NOT WHILE Drug use: No Past medical history, appointments, medications, allergies reviewed. Pertinent Lab/Diagnostic Studies are reviewed and discussed today Current Outpatient Medications: rizatriptan (MAXALT) 5 mg tablet oxyCODONE-acetaminophen (PERCOCET) 5-[address] (PROTONIX) 20 mg tablet Health Maintenance Hepatitis B Vaccine(1 of - 19+ 3-dose series) Cervical Cancer Screening Covid-19 Vaccine( season)@ Review Of Systems Head: (+) migraines, (+) headaches Eyes: (+) photophobia Ears/Nose/Mouth/Throat: (-) cold sores Neck: (+) neck pain Cardiovascular: (+) chest pain Gastrointestinal: (+) nausea Musculoskeletal: (+) back pain, (+) shoulder pain Psychiatric: (+) depression Physical Exam BP 102/70 (BP Site: Left Arm, BP Position: Sitting, BP Cuff Size: Regular Adult) Pulse 84 Wt 43.2 kg (95 lb 3.2 oz) LMP 01/09/2017 BMI 16.86 kg/m? GENERAL: NAD, alert and oriented. SKIN: Unremarkable, no rash or skin lesions. HEAD: Normocephalic. EYES: PERRLA, EOMI, conjunctiva clear. EARS: External ears normal, canals clear, TM's normal. NOSE/SINUSES: Nares normal. Septum midline. LUNGS: Clear to auscultation bilaterally, no wheezes/rhonchi/rales. HEART: Regular rate and rhythm, no murmurs. No ectopy. EXTREMITIES: Normal, no deformities, no skin discoloration, no edema. NEURO: Awake, alert and oriented x3, cranial nerves II-XII grossly intact, normal gait, no involuntary motions. Labs: Tests: - EKG: Minor nonspecific findings reported, deemed normal Imaging: - Head CT: Normal - MRI of the head: Normal - X-ray of the spine: No bone injury or disc prolapse identified; mild misalignment suggestive of lordosis Assessment and Plan 1. Migraine without aura and without status migrainosus, not intractable (G43.009) Experiencing migraines a couple of times a week for the past month, characterized by photophobia, nausea, and throbbing pain. No aura reported. Migraines are distinct from other headaches, which are related to not wearing glasses or contacts. - Prescribed Maxalt to be taken at the onset of migraine symptoms. - Advised to avoid potential triggers such as artificial sweeteners (sucralose, aspartame). - Monitor response to medication and report any changes. 2. Lumbar sprain, subsequent encounter (S33.5XXD) Persistent back pain; patient did not take prescribed steroids. X-rays show no disc prolapse, but some misalignment note (more content not included)... [facility] 03-28-2025 Discharge summary [facility] 03-28-2025 Radiology Diagnostic study note [facility] Services [address], [place] [id number] Brain/Head without Contrast MR#: [id number] Acct: [id number] Name: LANIE LISA Rep #: [id number] : 1990 F 34 From: Huyen Lozano MD PCP: Dr. Michelle Wilcox MD Status: REG E R Study:Brain/Head without Contrast Date of Exa m: 03/28/25 Exam# [id number] Ordering Dr: Marcin Lozano DO EXAM: CT Head Without Intravenous Contrast CLINICAL INDICATION: HEADACHE TECHNIQUE: Axial computed tomography images of the head/brain without intravenous contrast. This CT exam was performed using one or more of the following dose reduction techniques: automated exposure control, adjustment of the mA and/or kV according to patient size, and/or use of iterative reconstruction technique. COMPARISON: No relevant prior studies available. FINDINGS: BRAIN AND EXTRA-AXIAL SPACES: No acute intracranial hemorrhage, midline shift or mass effect. If symptoms persist, further evaluation with MRI is recommended. No significant white matter disease. BONES/JOINTS: Unremarkable. No acute fracture. SOFT TISSUES: Unremarkable. SINUSES: Unremarkable as visualized. No acute sinusitis. MASTOID AIR CELLS: Unremarkable as visualized. No mastoid effusion. CT/Brain/Head without Contrast IMPRESSION: No acute intracranial hemorrhage, midline shift or mass effect. If symptoms persist, further evaluation with MRI is recommended. Reading Location: [facility] CC: Dr. Michelle Wilcox MD; Dr. 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 Declines muscle relaxer as she already has an order for one. Offered to schedule sooner appt than 03/31/2025 and patient declines that as well. Jose Claros RN [facility] 03-20-2025 Miscellaneous Notes Patient returns call and provider message reviewed. Declines muscle relaxer as she already has an order for one. Offered to schedule sooner appt than 03/31/2025 and patient declines that as well. Jose Claros RN Called patient and no answer. Patients voicemail was full. Will need to call back later. Melissa Baer RN Xray is negative for fracture. Not appropriate to refill narcotic without being seen again. I could send in a muscle relaxer to try Thank you Divina Mejias APRN.SHIRA Patient called for Oxy refill and said she can't take 2 wks off work and has been lifting over 10 lbs low back pain continues patient has follow up apt 03/31/2025 Please advise documented in this encounter [facility] 03-20-2025 Telephone encounter Note Called patient and no answer. Patients voicemail was full. Will need to call back later. Melissa Baer, KWABENA [facility] 03-20-2025 Telephone encounter Note Xray is negative for fracture. Not appropriate to refill narcotic without being seen again. 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 03-20-2025 Telephone encounter Note See TE 03/20 [facility] 03-20-2025 Miscellaneous Notes See TE 03/20 Patient MyChart message requesting the following refill Refill(s) Requested: Requested Prescriptions Pending Prescriptions Disp Refills oxyCODONE-acetaminophen (PERCOCET) 5-325 mg tablet 10 tablet 0 Sig: Take 1 tablet by mouth every 8 hours as needed for pain for up to 5 days. ALLERGIES Allergen Reactions Hydrocodone-Acetami* GI Upset nausea, no vomiting (home) [phone] (cell) Last Office Visit Date: 03/13/2025 Last Distance Health Visit: Visit date not found Future Appointment: 03/31/2025 The patients preferred pharmacy has been captured for this encounter? yes Request is for script(s) to be escript to pharmacy. Chloe Ramsey LPN documented in this encounter [facility] 03-20-2025 Miscellaneous Notes See TE 03/20 Guera Morgan MA Prescription Refill Information The patient has been identified by name and date of : Yes Caregiver verified no other encounters exist for this prescription request: Yes Caregiver confirmed with patient/requestor that no other refills are due, in the near future, with this provider at this time: Yes The last office visit in the department: 03/13/2025 Does the patient have a future office visit with this provider/department: Yes Requested Prescriptions Pending Prescriptions Disp Refills oxyCODONE-acetaminophen (PERCOCET) 5-325 mg tablet 10 tablet 0 Sig: Take 1 tablet by mouth every 8 hours as needed for pain for up to 5 days. Jayla Lazo March 20, 2025 9:09 AM documented in this encounter [facility] 03-20-2025 Telephone encounter Note Patient called for Oxy refill and said she can't take 2 wks off work and has been lifting over 10 lbs low back pain continues patient has follow up apt 03/31/2025 Please advise [facility] Work Phone: 03-20-2025 Telephone encounter Note Prescription Refill Information The patient has been identified by name and date of : Yes Caregiver verified no other encounters exist for this prescription request: Yes Caregiver confirmed with patient/requestor that no other refills are due, in the near future, with this provider at this time: Yes The last office visit in the department: 03/13/2025 Does the patient have a future office visit with this provider/department: Yes Requested Prescriptions Pending Prescriptions Disp Refills oxyCODONE-acetaminophen (PERCOCET) 5-325 mg tablet 10 tablet 0 Sig: Take 1 tablet by mouth every 8 hours as needed for pain for up to 5 days. Jayla Lazo March 20, 2025 9:09 AM [facility] 03-18-2025 Telephone encounter Note Patient MyChart message requesting the following refill Refill(s) Requested: Requested Prescriptions Pending Prescriptions Disp Refills oxyCODONE-acetaminophen (PERCOCET) 5-325 mg tablet 10 tablet 0 Sig: Take 1 tablet by mouth every 8 hours as needed for pain for up to 5 days. ALLERGIES Allergen Reactions Hydrocodone-Acetami* GI Upset nausea, no vomiting (home) [phone] (cell) Last Office Visit Date: 03/13/2025 Last [facility] Visit: Visit date not found Future Appointment: 03/31/2025 The patients preferred pharmacy has been captured for this encounter? yes Request is for script(s) to be escript to pharmacy. Chloe Ramsey LPN [facility] 03-13-2025 History of Present illness Narrative Radiology Service Progress Note PATIENT NAME: Lanie Lisa DATE OF SERVICE: March 13, 2025 TIME: 4:09 PM PATIENT IDENTITY VERIFICATION COMPLETED USING TWO (2) IDENTIFIERS: Name and Date of confirmed by patient verbally. FALL SCREENING: Has the patient had 2 falls in the last year or 1 fall with injury or currently using an Ambulatory Assistive Device (Walker, Cane, Wheelchair, Crutches, etc.)? No PATIENT GENDER DATA: Assigned female at . status: : No status: NO. PATIENT RELEVANT IMPLANT DATA REVIEWED: Not Applicable PATIENT PRESENTS WITH AN IMPLANTABLE OR ATTACHED INDUSTRIAL MAINTENANCE REPAIRER: No RADIOLOGY DEPARTMENT: General X-ray: Exam(s) Completed: Spine X-Ray(s): Lumbar AP / LAT / L5-S1 and Sacrum/Coccyx PERIPHERAL IV DATA: Not applicable SIGNED BY: RT Jaime(Martin) March 13, 2025 4:09 PM documented in this encounter [facility] 03-13-2025 Note HNO ID: [id number] Author: ALEXIS DOBSON RT(R) Service: Radiology Author Type: Technologist Type: Progress Notes Filed: 03/13/2025 16:24 Note Text: Radiology Service Progress Note PATIENT NAME: Lanie Lisa DATE OF SERVICE: March 13, 2025 TIME: 4:09 PM PATIENT IDENTITY VERIFICATION COMPLETED USING TWO (2) IDENTIFIERS: Name and Date of confirmed by patient verbally. FALL SCREENING: Has the patient had 2 falls in the last year or 1 fall with injury or currently using an Ambulatory Assistive Device (Walker, Cane, Wheelchair, Crutches, etc.)? No PATIENT GENDER DATA: Assigned female at . status: : No status: NO. PATIENT RELEVANT IMPLANT DATA REVIEWED: Not Applicable PATIENT PRESENTS WITH AN IMPLANTABLE OR ATTACHED INDUSTRIAL MAINTENANCE REPAIRER: No RADIOLOGY DEPARTMENT: General X-ray: Exam(s) Completed: Spine X-Ray(s): Lumbar AP / LAT / L5-S1 and Sacrum/Coccyx PERIPHERAL IV DATA: Not applicable SIGNED BY: RT Jaime(Martin) March 13, 2025 4:09 PM [facility] 03-13-2025 Instructions Michelle Wilcox MD - 03/13/2025 3:55 PM EDT We discussed your lower back pain: - Your back pain began three weeks ago after a gym injury while performing squats. Since then, you have experienced persistent pain in your lower back, particularly in the sacroiliac joint and L5-S1 region, with occasional shooting pain down your legs depending on pressure. There is no numbness or tingling, which is a positive sign. - I recommend you stop lifting heavy objects and avoid activities that strain your back. You should not push, pull, or lift more than 10 pounds. - I have prescribed a Medrol Dose Pack (steroid) to help reduce inflammation. Please follow the instructions provided with the medication. - I have also prescribed Percocet (oxycodone-acetaminophen) for pain relief. Take as directed, and use only as needed for severe pain. A total of 10 pills has been prescribed. - Since you have acid reflux, I have prescribed Protonix to prevent stomach irritation while taking the steroids. Take this for two weeks as directed. We discussed imaging for your back: - I have sent an order for an X-ray of your lower back to evaluate the injury further. Please schedule and complete this as soon as possible. We discussed work restrictions: - You are restricted from lifting, pushing, or pulling more than 10 pounds. 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 - If needed, I can provide a doctor s note for your employer to outline these restrictions. We discussed lifestyle modifications: - Avoid heavy lifting and high-impact exercises. Focus on gentle, repetitive exercises like bodyweight squats to build strength without straining your back. - Rest and allow your body time to heal. Overexertion may worsen your condition and lead to prolonged recovery. Please follow up with me after completing the X-ray or sooner if your symptoms worsen. documented in this encounter [facility] 03-13-2025 Note HNO ID: [id number] Author: MICHELLE WILCOX MD Service: ? Author Type: Physician Type: Progress Notes Filed: 03/13/2025 17:03 Note Text: Reason for Visit HPI Lanie is a 34-year-old female with a history of scoliosis presenting with acute lower back pain and sciatica following a gym injury 3 weeks ago. Lanie reports a 3-week history of acute lower back pain that began after performing squats on a Benton machine at the gym. She felt a pop in her back while ascending from a squat and has experienced significant pain since, describing it as really bad. 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 The pain is localized to the lower back, extending from the lumbar region to the sacrum, and is described as achy and sore. It is exacerbated by prolonged sitting, standing, and certain movements, and is associated with shooting pain down the legs, alternating between legs daily. She denies numbness or tingling in the legs. Lanie has a history of chronic back pain and scoliosis, with previous episodes of lower back pain and hip popping. She suspects a pinched sciatic nerve due to the shooting pain in the buttocks and legs, which has worsened since the gym injury. She has not had a recent x-ray but was advised to get one by a previous clinician, which she could not complete due to work commitments. She has been taking Advil for pain relief and previously took leftover oxycodone from a finger injury, which provided relief. She has not tried muscle relaxants or prednisone. She also has a history of acid reflux, for which she takes Pepto-Bismol as needed. Social History Tobacco Use Smoking status: Former Types: Cigarettes Smokeless tobacco: Never Tobacco comments: approx 2 cig per day Vaping Use Vaping status: current everyday user Substances: Nicotine, Flavoring Devices: Refillable tank Substance Use Topics Alcohol use: Yes Comment: OCCASIONALLY,BUT NOT WHILE Drug use: No Past medical history, appointments, medications, allergies reviewed. Pertinent Lab/Diagnostic Studies are reviewed and discussed today Current Outpatient Medications: methylPREDNISolone (MEDROL, EUN,) 4 mg Dose-Pack oxyCODONE-acetaminophen (PERCOCET) 5-[address] (PROTONIX) 20 mg tablet Health Maintenance Hepatitis B Vaccine(1 of + 3-dose series) Cervical Cancer Screening Covid-19 Vaccine( season)@ Review Of Systems Gastrointestinal: (+) acid reflux Musculoskeletal: (+) lower back pain, (+) bilateral hip popping, (+) buttock pain, (+) radiating leg pain Neurological: (-) numbness or tingling Physical Exam BP 102/69 Pulse 76 Resp 16 Wt 43.1 kg (95 lb) LMP 01/09/2017 BMI 16.83 kg/m? GENERAL: NAD, alert and oriented. SKIN: Unremarkable, no rash or skin lesions. HEAD: Normocephalic. EYES: PERRLA, EOMI, conjunctiva clear. EARS: External ears normal, canals clear, TM's normal. LUNGS: Clear to auscultation bilaterally, no wheezes/rhonchi/rales. HEART: Regular rate and rhythm, no murmurs. No ectopy. EXTREMITIES: Normal, no deformities, no skin discoloration, no edema. NEURO: Awake, alert and oriented x3, cranial nerves II-XII grossly intact, normal gait, no involuntary motions. BACK: Limited range of motion with forward flexion to 75 degrees; pain noted in sacroiliac joint, paraspinal areas, and L5-S1 region. Assessment and Plan 1. Acute bilateral low back pain with bilateral sciatica (M54.42) Injury of back, subsequent encounter (S39.92XD) Acute onset of low back pain with bilateral sciatica following a gym incident involving squats on a Benton machine approximately three weeks ago. Pain is localized to the lower back, particularly in the sacroiliac joint and L5-S1 region, with radiation to the buttocks and alternating legs. No numbness or tingling reported. Physical exam reveals tenderness in the lower back and limited range of motion. Previous history of scoliosis noted. - Ordered lumbar spine X-ray to assess for any structural abnormalities. - Prescribed a Medrol Dosepak to reduce inflammation. - Prescribed Percocet 10 mg, 10 tablets for acute pain management. - Advised patient to avoid heavy lifting and strenuous activities. - Provided work restrictions: no lifting, pushing, or pulling more than 10 pounds. - Issued a medical certificate for work restrictions from 03/14. - Follow-up appointment scheduled to review X-ray results and reassess pain management. 2. Encounter for issue of other medical certificate (Z02.79) Medical certificate required for work restrictions due to acute low back pain and sciatica. - Issued medical certificate for work restrictions from 03/14. Voice recognition software was used to compose this office note. Please excuse any unintended typographical errors. Recording using Associated Content software for draft documenta (more content not included)... [facility] 03-13-2025 History of Present illness Narrative Reason for Visit JANELL Dela Cruz is a 34-year-old female with a history of scoliosis presenting with acute lower back pain and sciatica following a gym injury 3 weeks ago. Lanie reports a 3-week history of acute lower back pain that began after performing squats on a Benton machine at the gym. She felt a pop in her back while ascending from a squat and has experienced significant pain since, describing it as really bad. 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 The pain is localized to the lower back, extending from the lumbar region to the sacrum, and is described as achy and sore. It is exacerbated by prolonged sitting, standing, and certain movements, and is associated with shooting pain down the legs, alternating between legs daily. She denies numbness or tingling in the legs. Lanie has a history of chronic back pain and scoliosis, with previous episodes of lower back pain and hip popping. She suspects a pinched sciatic nerve due to the shooting pain in the buttocks and legs, which has worsened since the gym injury. She has not had a recent x-ray but was advised to get one by a previous clinician, which she could not complete due to work commitments. She has been taking Advil for pain relief and previously took leftover oxycodone from a finger injury, which provided relief. She has not tried muscle relaxants or prednisone. She also has a history of acid reflux, for which she takes Pepto-Bismol as needed. Social History Tobacco Use Smoking status: Former Types: Cigarettes Smokeless tobacco: Never Tobacco comments: approx 2 cig per day Vaping Use Vaping status: current everyday user Substances: Nicotine, Flavoring Devices: Refillable tank Substance Use Topics Alcohol use: Yes Comment: OCCASIONALLY,BUT NOT WHILE Drug use: No Past medical history, appointments, medications, allergies reviewed. Pertinent Lab/Diagnostic Studies are reviewed and discussed today Current Outpatient Medications: methylPREDNISolone (MEDROL, EUN,) 4 mg Dose-Pack oxyCODONE-acetaminophen (PERCOCET) 5-[address] (PROTONIX) 20 mg tablet Health Maintenance Hepatitis B Vaccine(1 of - 19+ 3-dose series) Cervical Cancer Screening Covid-19 Vaccine( season)@ Review Of Systems Gastrointestinal: (+) acid reflux Musculoskeletal: (+) lower back pain, (+) bilateral hip popping, (+) buttock pain, (+) radiating leg pain Neurological: (-) numbness or tingling Physical Exam BP 102/69 Pulse 76 Resp 16 Wt 43.1 kg (95 lb) LMP 01/09/2017 BMI 16.83 kg/m GENERAL: NAD, alert and oriented. SKIN: Unremarkable, no rash or skin lesions. HEAD: Normocephalic. EYES: PERRLA, EOMI, conjunctiva clear. EARS: External ears normal, canals clear, TM's normal. LUNGS: Clear to auscultation bilaterally, no wheezes/rhonchi/rales. HEART: Regular rate and rhythm, no murmurs. No ectopy. EXTREMITIES: Normal, no deformities, no skin discoloration, no edema. NEURO: Awake, alert and oriented x3, cranial nerves II-XII grossly intact, normal gait, no involuntary motions. BACK: Limited range of motion with forward flexion to 75 degrees; pain noted in sacroiliac joint, paraspinal areas, and L5-S1 region. Assessment and Plan 1. Acute bilateral low back pain with bilateral sciatica (M54.42) Injury of back, subsequent encounter (S39.92XD) Acute onset of low back pain with bilateral sciatica following a gym incident involving squats on a Benton machine approximately three weeks ago. Pain is localized to the lower back, particularly in the sacroiliac joint and L5-S1 region, with radiation to the buttocks and alternating legs. No numbness or tingling reported. Physical exam reveals tenderness in the lower back and limited range of motion. Previous history of scoliosis noted. - Ordered lumbar spine X-ray to assess for any structural abnormalities. - Prescribed a Medrol Dosepak to reduce inflammation. - Prescribed Percocet 10 mg, 10 tablets for acute pain management. - Advised patient to avoid heavy lifting and strenuous activities. - Provided work restrictions: no lifting, pushing, or pulling more than 10 pounds. - Issued a medical certificate for work restrictions from 03/14. - Follow-up appointment scheduled to review X-ray results and reassess pain management. 2. Encounter for issue of other medical certificate (Z02.79) Medical certificate required for work restrictions due to acute low back pain and sciatica. - Issued medical certificate for work restrictions from 03/14. Voice recognition software was used to compose this office note. Please excuse any unintended typographical errors. 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 03-03-2025 Note HNO ID: [id number] Author: ROBERT BREWER PA-C Service: ? Author Type: Physician Turning Lathe Tender Type: Progress Notes Filed: 03/03/2025 12:33 Note Text: Recording using Associated Content software for draft documentation of the visit was discussed with the patient/authorized sales representative wire rope; all questions welcomed and answered. 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 - Lisman a weird pop followed by excruciating pain in the back. - Pain is localized to the lower back, more comfortable standing than sitting. - Aggravated by sitting, bending, and certain movements. - Denies previous back injuries; has a history of scoliosis. - Has been using Advil, topical pain relief (similar to Icy Hot), and heat pads with minimal relief. - Took two leftover pain pills from a previous finger injury to manage pain at work. - Pain radiates down the leg, more pronounced on the left side. - Denies numbness in the seat region or loss of bowel control. Asking for refill of percocet. Urinary Incontinence: - Experiencing urinary incontinence, particularly with coughing, sneezing, and jumping. - Reports urgency and dribbling before reaching the bathroom. - Has not seen a BALANCE ENGINEER since a hysterectomy at age 28 or 29. - Denies dysuria or increased frequency. Current Outpatient Medications on File Prior to Visit Medication Sig omeprazole (PRILOSEC) 40 mg capsule Take 1 capsule by mouth daily before breakfast. 1/2 hr before meal. (Patient not taking: Reported on 03/03/2025) No current facility-administered medications on file prior to visit. PAST MEDICAL HISTORY Diagnosis Date Acid reflux Arthritis LEFT WRIST Dysthymic disorder 03/2009 Depression (non-psychotic) Endometriosis Allergies: Hydrocodone-Acetami* GI Upset Comment:nausea, no vomiting Genitourinary: (+) urinary incontinence, (+) urinary urgency, (+) dyspareunia, (-) dysuria, (-) urinary frequency Musculoskeletal: (+) low back pain, (+) radiating leg pain Neurological: (-) numbness BP 110/78 Pulse 96 Resp 16 Wt 45.5 kg (100 lb 3.2 oz) LMP 01/09/2017 BMI 17.75 kg/m? GENERAL: NAD, alert and oriented. EXTREMITIES: Normal, no deformities, no skin discoloration, no edema. NEURO: Awake, alert and oriented x3, cranial nerves II-XII grossly intact, normal gait, no involuntary motions. BACK: Tenderness noted in the lumbar region, particularly on the left side. + left SLR. Pain elicited with forward bending and left leg elevation. no CVA TTP 1. Lumbar pain (M54.50) 2. Sciatica, left side (M54.32) - Acute onset of lumbar pain following improper squat technique at the gym, accompanied by a pop sensation. Pain is exacerbated by sitting and bending, with some relief when standing. No previous back injuries reported, but patient has a history of scoliosis. - Physical exam reveals tenderness in the lumbar region and pain radiating down the left leg. No numbness or loss of bowel or bladder control reported. - Ordered lumbar spine X-ray to rule out any bony abnormalities. - Advised alternating ice and heat application for 20 minutes each, cautioning against prolonged use of a heating pad to prevent emery. - Recommended ibuprofen 600 mg every 6-8 hours with food for anti-inflammatory effect, and advised alternating with acetaminophen. - Discussed potential use of Flexeril, but patient declined. - Encouraged gentle stretching exercises to maintain mobility and prevent stiffness. - If no improvement in 5-7 days, will initiate physical therapy. If symptoms worsen or if there is progressive numbness or weakness in the legs, will consider MRI of the lumbar spine. - Instructed patient to seek emergency care if there is complete loss of bowel or bladder control or numbness in the perineal region. 3. Stress incontinence (N39.3) - Symptoms consistent with stress and urge incontinence, including leakage with coughing, sneezing, and urgency. - No dysuria or increased frequency reported. - Ordered urinalysis to rule out urinary tract infection. - Recommended follow-up with a multi line claims adjuster for a comprehensive pelvic exam and further evaluation. - Discussed potential treatments, including medications and surgical options such as bladder suspension if prolapse is confirmed. - Referral to gynecology initiated. The patient indicates understanding of these issues and agrees with the plan. Reviewed red flags and when to seek care sooner. Robert Brewer PA-C 03/03/2025 [facility] 03-03-2025 History of Present illness Narrative Recording using Associated Content software for draft documentation of the visit was discussed with the patient/authorized sales representative wire rope; all questions welcomed and answered. 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 - Lisman a weird pop followed by excruciating pain in the back. - Pain is localized to the lower back, more comfortable standing than sitting. - Aggravated by sitting, bending, and certain movements. - Denies previous back injuries; has a history of scoliosis. - Has been using Advil, topical pain relief (similar to Icy Hot), and heat pads with minimal relief. - Took two leftover pain pills from a previous finger injury to manage pain at work. - Pain radiates down the leg, more pronounced on the left side. - Denies numbness in the seat region or loss of bowel control. Asking for refill of percocet. Urinary Incontinence: - Experiencing urinary incontinence, particularly with coughing, sneezing, and jumping. - Reports urgency and dribbling before reaching the bathroom. - Has not seen a BALANCE ENGINEER since a hysterectomy at age 28 or 29. - Denies dysuria or increased frequency. Current Outpatient Medications on File Prior to Visit Medication Sig omeprazole (PRILOSEC) 40 mg capsule Take 1 capsule by mouth daily before breakfast. 1/2 hr before meal. (Patient not taking: Reported on 03/03/2025) No current facility-administered medications on file prior to visit. PAST MEDICAL HISTORY Diagnosis Date Acid reflux Arthritis LEFT WRIST Dysthymic disorder 03/2009 Depression (non-psychotic) Endometriosis Allergies: Hydrocodone-Acetami* GI Upset Comment:nausea, no vomiting Genitourinary: (+) urinary incontinence, (+) urinary urgency, (+) dyspareunia, (-) dysuria, (-) urinary frequency Musculoskeletal: (+) low back pain, (+) radiating leg pain Neurological: (-) numbness BP 110/78 Pulse 96 Resp 16 Wt 45.5 kg (100 lb 3.2 oz) LMP 01/09/2017 BMI 17.75 kg/m GENERAL: NAD, alert and oriented. EXTREMITIES: Normal, no deformities, no skin discoloration, no edema. NEURO: Awake, alert and oriented x3, cranial nerves II-XII grossly intact, normal gait, no involuntary motions. BACK: Tenderness noted in the lumbar region, particularly on the left side. + left SLR. Pain elicited with forward bending and left leg elevation. no CVA TTP 1. Lumbar pain (M54.50) 2. Sciatica, left side (M54.32) - Acute onset of lumbar pain following improper squat technique at the gym, accompanied by a pop sensation. Pain is exacerbated by sitting and bending, with some relief when standing. No previous back injuries reported, but patient has a history of scoliosis. - Physical exam reveals tenderness in the lumbar region and pain radiating down the left leg. No numbness or loss of bowel or bladder control reported. - Ordered lumbar spine X-ray to rule out any bony abnormalities. - Advised alternating ice and heat application for 20 minutes each, cautioning against prolonged use of a heating pad to prevent emery. - Recommended ibuprofen 600 mg every 6-8 hours with food for anti-inflammatory effect, and advised alternating with acetaminophen. - Discussed potential use of Flexeril, but patient declined. - Encouraged gentle stretching exercises to maintain mobility and prevent stiffness. - If no improvement in 5-7 days, will initiate physical therapy. If symptoms worsen or if there is progressive numbness or weakness in the legs, will consider MRI of the lumbar spine. - Instructed patient to seek emergency care if there is complete loss of bowel or bladder control or numbness in the perineal region. 3. Stress incontinence (N39.3) - Symptoms consistent with stress and urge incontinence, including leakage with coughing, sneezing, and urgency. - No dysuria or increased frequency reported. - Ordered urinalysis to rule out urinary tract infection. - Recommended follow-up with a multi line claims adjuster for a comprehensive pelvic exam and further evaluation. - Discussed potential treatments, including medications and surgical options such as bladder suspension if prolapse is confirmed. - Referral to gynecology initiated. The patient indicates understanding of these issues and agrees with the plan. Reviewed red flags and when to seek care sooner. Robert Brewer PA-C 03/03/2025 documented in this encounter [facility] 03-03-2025 Instructions oRbert Brewer PA-C - 03/03/2025 12:08 PM EDT Continue alternating ice and heat on your back--apply each for 20 minutes at a time. Avoid falling asleep with a heating pad on to prevent emery. Keep up with gentle stretching and movement (such as pulling your knees up when lying down or slight leg crosses) to help relieve stiffness without overdoing it. Be mindful of your back pain; if you notice progressive numbness, weakness in your legs, or any new difficulty with bowel or bladder control, seek immediate care. A urine sample was ordered to check for signs of infection. Contact us if you experience any burning with urination or an increase in urinary frequency. A referral to a multi line claims adjuster has been made for a pelvic exam regarding your bladder symptoms and possible prolapse. Have lumbar x-ray done. You will be contacted with the results. If your back pain does not improve within 5-7 days or worsens, please follow up so we can discuss starting physical therapy. documented in this encounter [facility] 12-08-2024 Telephone encounter Note See JONATHAN Mejias APRN.CNP [facility] Work Phone: 12-08-2024 Miscellaneous Notes See TE Divina Mejias APRN.CNP How is the patient doing? Has she seen the chiropractor asa recommended by Dr. Wilcox? Thank you Divina Mejias APRN.CEMENT DESPATCH OPERATOR Prescription Refill Information The patient has been identified by name and date of : Yes Caregiver verified no other encounters exist for this prescription request: Yes Caregiver confirmed with patient/requestor that no other refills are due, in the near future, with this provider at this time: Yes The last office visit in the department: 12/02/24 Does the patient have a future office visit with this provider/department: Yes Requested Prescriptions Pending Prescriptions Disp Refills oxyCODONE-acetaminophen (PERCOCET) 5-325 mg tablet 9 tablet 0 Sig: Take 1 tablet by mouth every 8 hours as needed for up to 3 days. Nato Perez LPN December 06, 2024 10:39 AM Prescription Refill Information The patient has been identified by name and date of : Yes Caregiver verified no other encounters exist for this prescription request: Yes Caregiver confirmed with patient/requestor that no other refills are due, in the near future, with this provider at this time: Yes The last office visit in the department: 12/02/24 Does the patient have a future office visit with this provider/department: yes Requested Prescriptions Pending Prescriptions Disp Refills oxyCODONE-acetaminophen (PERCOCET) 5-325 mg tablet 9 tablet 0 Sig: Take 1 tablet by mouth every 8 hours as needed for up to 3 days. Requesting a refill due to she cannot get in to see chiropractor. Medina Lazo December 05, 2024 10:01 AM documented in this encounter [facility] 12-08-2024 Telephone encounter Note How is the patient doing? Has she seen the chiropractor asa recommended by Dr. Wilcox? Thank you Divina Mejias APRN.CEMENT DESPATCH OPERATOR [facility] 12-06-2024 Telephone encounter Note Prescription Refill Information The patient has been identified by name and date of : Yes Caregiver verified no other encounters exist for this prescription request: Yes Caregiver confirmed with patient/requestor that no other refills are due, in the near future, with this provider at this time: Yes The last office visit in the department: 12/02/24 Does the patient have a future office visit with this provider/department: Yes Requested Prescriptions Pending Prescriptions Disp Refills oxyCODONE-acetaminophen (PERCOCET) 5-325 mg tablet 9 tablet 0 Sig: Take 1 tablet by mouth every 8 hours as needed for up to 3 days. Nato Perez LPN December 06, 2024 10:[address] [facility] 12-05-2024 Telephone encounter Note Called and updated patient, patient to see Chiropractor next week. Chloe Ramsey LPN December 05, 2024 10:[address] [facility] 12-05-2024 Miscellaneous Notes Called and updated patient, patient to see Chiropractor next week. Chloe Ramsey LPN December 05, 2024 10:51 AM Please let patient know that her rib xr is normal Would like to know if she has see the chiropractor? I will not be able to refill pain meds after the current dose Please update if she is better after chiropractor assessment and manipulation. Regards, Michelle Ganta MD documented in this encounter [facility] 12-05-2024 Telephone encounter Note Please let patient know that her rib xr is normal Would like to know if she has see the chiropractor? I will not be able to refill pain meds after the current dose Please update if she is better after chiropractor assessment and manipulation. Michelle Obregon MD [facility] 12-05-2024 Telephone encounter Note Prescription Refill Information The patient has been identified by name and date of : Yes Caregiver verified no other encounters exist for this prescription request: Yes Caregiver confirmed with patient/requestor that no other refills are due, in the near future, with this provider at this time: Yes The last office visit in the department: 12/02/24 Does the patient have a future office visit with this provider/department: yes Requested Prescriptions Pending Prescriptions Disp Refills oxyCODONE-acetaminophen (PERCOCET) 5-325 mg tablet 9 tablet 0 Sig: Take 1 tablet by mouth every 8 hours as needed for up to 3 days. Requesting a refill due to she cannot get in to see chiropractor. Medina Lazo December 05, 2024 10:[address] [facility] 12-02-2024 History of Present illness Narrative Radiology Service Progress Note PATIENT NAME: Lanie Lisa DATE OF SERVICE: December 02, 2024 TIME: 11:57 AM PATIENT IDENTITY VERIFICATION COMPLETED USING TWO (2) IDENTIFIERS: Name and Date of confirmed by patient verbally. FALL SCREENING: Has the patient had 2 falls in the last year or 1 fall with injury or currently using an Ambulatory Assistive Device (Walker, Cane, Wheelchair, Crutches, etc.)? No PATIENT GENDER DATA: Assigned female at . status: : No status: NO. PATIENT RELEVANT IMPLANT DATA REVIEWED: Yes PATIENT PRESENTS WITH AN IMPLANTABLE OR ATTACHED INDUSTRIAL MAINTENANCE REPAIRER: No RADIOLOGY DEPARTMENT: General X-ray: Exam(s) Completed: Rib X-Ray: Bilateral PERIPHERAL IV DATA: Not applicable SIGNED BY: JONAS Walker) December 02, 2024 11:57 AM documented in this encounter [facility] 12-02-2024 Note HNO ID: [id number] Author: ABEBE BERTRAND RT(R) Service: ? Author Type: Health Consultant Type: Progress Notes Filed: 12/02/2024 12:09 Note Text: Radiology Service Progress Note PATIENT NAME: Lanie Lisa DATE OF SERVICE: December 02, 2024 TIME: 11:57 AM PATIENT IDENTITY VERIFICATION COMPLETED USING TWO (2) IDENTIFIERS: Name and Date of confirmed by patient verbally. FALL SCREENING: Has the patient had 2 falls in the last year or 1 fall with injury or currently using an Ambulatory Assistive Device (Walker, Cane, Wheelchair, Crutches, etc.)? No PATIENT GENDER DATA: Assigned female at . status: : No status: NO. PATIENT RELEVANT IMPLANT DATA REVIEWED: Yes PATIENT PRESENTS WITH AN IMPLANTABLE OR ATTACHED INDUSTRIAL MAINTENANCE REPAIRER: No RADIOLOGY DEPARTMENT: General X-ray: Exam(s) Completed: Rib X-Ray: Bilateral PERIPHERAL IV DATA: Not applicable SIGNED BY: JONAS Walker) December 02, 2024 11:57 AM [facility] 12-02-2024 Note HNO ID: [id number] Author: MICHELLE WILCOX MD Service: ? Author Type: Physician Type: Progress Notes Filed: 12/02/2024 11:32 Note Text: Reason for Visit Patient presents with: Follow Up Lanie Lisa is a 34 year old female who presents here today for Above Complaints. Health Maintenance Hepatitis B Vaccine(1 of 3 - 19+ 3-dose series) Cervical Cancer Screening Influenza Vaccine(1) Covid-19 Vaccine( season) HPI Has been having pain in the chest, with palpable elevation of the ribs in the right anterior likely 4/5 ribs. She reached out to high her boyfriend to give him a hug when she went to bed when she heard something pop and every since she has felt an elevation in the ribs and in the mentioned area and there is pain all the time. Right now it is hurting her. And she is uncomfortable. She is able to go to to work but cannot lift anything. Pain is 8/10, she cannot lift anything and is not able to do any work at home after coming back from work. No problem-specific Assessment AND Plan notes found for this encounter. PAST MEDICAL HISTORY Diagnosis Date Acid reflux Arthritis LEFT WRIST Dysthymic disorder 03/2009 Depression (non-psychotic) Endometriosis PAST SURGICAL HISTORY Procedure Laterality Date COLONOSCOPY FLX DX W/COLLJ SPEC WHEN PFRMD 03/01/16 Colonoscopy with mac DILATION AND CURETTAGE DXAND/THER NONOBSTETRIC Dilation AND curettageX2 EGD TRANSORAL BIOPSY SINGLE/MULTIPLE 12/12/2016 gastritis EXT HYSTERECTOMY,W/PARTIAL VAGINECTO IMPLANON LAP APPENDICOSTOMY 08/04/2019 LAPS ABD PRTMANDOMENTUM DX W/WO SPEC BR/WA SPX 12/23/2015 Laparoscopy OOPHORECTOMY PARTIAL OR TOTAL Right 08/04/2019 PAST SURGICAL HISTORY OF oophorectomy/ salpingectomy left PAST SURGICAL HISTORY OF 02/2016 debridment left thumb staph. TONSILLECTOMY PRIMARY/SECONDARY Tonsillectomy US KIDNEY 07/05/2015 normal FAMILY HISTORY Problem Relation Age of Onset Cancer Mother OVARIAN CANCER Osteoporosis Mother other (Other) Mother Crohn's disease Thyroid Father Heart Maternal Grandmother Diabetes Paternal Grandmother Diabetes Paternal Grandfather Cancer Maternal Aunt OVARIAN CANCER Social History Tobacco Use Smoking status: Former Types: Cigarettes Smokeless tobacco: Never Tobacco comments: approx 2 cig per day Vaping Use Vaping status: current everyday user Substances: Nicotine, Flavoring Devices: Why Not Give Backble tank Substance Use Topics Alcohol use: Yes Comment: OCCASIONALLY,BUT NOT WHILE Drug use: No Past medical history, appointments, medications, allergies reviewed. Pertinent Lab/Diagnostic Studies are reviewed and discussed today Current Outpatient Medications: meloxicam (MOBIC) 15 mg tablet omeprazole (PRILOSEC) 40 mg capsule Review of Systems CONSTITUTIONAL: No fevers, chills night sweats, unintended weight loss CARDIOVASCULAR: No chest pain, dyspnea, palpitations, orthopnea, PND, ankle edema. PULM: No dyspnea, unexplained cough. GI: No dysphagia/odynophagia, problematic reflux, constipation, diarrhea, changes in stool habits, hematochezia, melena. : No new urinary complaints, including dysuria, gross hematuria or pyuria. NEURO: No new balance problems, peripheral weakness/paresthesias or numbness of concern. Physical Exam BP 98/70 Pulse 80 Resp 16 Wt 47.2 kg (104 lb) LMP 01/09/2017 BMI 18.42 kg/m? General appearance: Well appearing, alert, in no acute distress, well nourished. Skin: Skin color, texture, turgor normal, no suspicious rashes or lesions Head: Normocephalic, no masses, lesions, tenderness or abnormalities Eyes: Anicteric sclera. Pupils are equally round and reactive to light. Extraocular movements are intact. Lungs: Lungs clear to auscultation. No wheezing, rhonchi, rales Heart: RRR without murmur, gallop, or rubs. Chest: she has palpable protrusion of the ribs at the costovertebral angle at multiple ribs levels. ASSESSMENT/PLAN: 1. Rib pain on right side - ICD9: 786.50, ICD10: R07.81. - XR RIBS BILATERAL/CHEST 4V - she likely has rib displacement, and will need to see the chiropractor. - wants pain meds till then so she can work. Michelle Wilcox MD [facility] 12-02-2024 History of Present illness Narrative Reason for Visit Patient presents with: Follow Up Lanie Lisa is a 34 year old female who presents here today for Above Complaints. Health Maintenance Hepatitis B Vaccine(1 of - 19+ 3-dose series) Cervical Cancer Screening Influenza Vaccine(1) Covid-19 Vaccine( season) HPI Has been having pain in the chest, with palpable elevation of the ribs in the right anterior likely 4/5 ribs. She reached out to high her boyfriend to give him a hug when she went to bed when she heard something pop and every since she has felt an elevation in the ribs and in the mentioned area and there is pain all the time. Right now it is hurting her. And she is uncomfortable. She is able to go to to work but cannot lift anything. Pain is 8/10, she cannot lift anything and is not able to do any work at home after coming back from work. No problem-specific Assessment & Plan notes found for this encounter. PAST MEDICAL HISTORY Diagnosis Date Acid reflux Arthritis LEFT WRIST Dysthymic disorder 03/2009 Depression (non-psychotic) Endometriosis PAST SURGICAL HISTORY Procedure Laterality Date COLONOSCOPY FLX DX W/COLLJ SPEC WHEN PFRMD 03/01/16 Colonoscopy with mac DILATION & CURETTAGE DX&/THER NONOBSTETRIC Dilation & curettageX2 EGD TRANSORAL BIOPSY SINGLE/MULTIPLE 12/12/2016 gastritis EXT HYSTERECTOMY,W/PARTIAL VAGINECTO IMPLANON LAP APPENDICOSTOMY 08/04/2019 LAPS ABD PRTM&OMENTUM DX W/WO SPEC BR/WA SPX 12/23/2015 Laparoscopy OOPHORECTOMY PARTIAL OR TOTAL Right 08/04/2019 PAST SURGICAL HISTORY OF oophorectomy/ salpingectomy left PAST SURGICAL HISTORY OF 02/2016 debridment left thumb staph. TONSILLECTOMY PRIMARY/SECONDARY <AGE 13 Tonsillectomy US KIDNEY 07/05/2015 normal FAMILY HISTORY Problem Relation Age of Onset Cancer Mother OVARIAN CANCER Osteoporosis Mother other (Other) Mother Crohn's disease Thyroid Father Heart Maternal Grandmother Diabetes Paternal Grandmother Diabetes Paternal Grandfather Cancer Maternal Aunt OVARIAN CANCER Social History Tobacco Use Smoking status: Former Types: Cigarettes Smokeless tobacco: Never Tobacco comments: approx 2 cig per day Vaping Use Vaping status: current everyday user Substances: Nicotine, Flavoring Devices: [employer] tank Substance Use Topics Alcohol use: Yes Comment: OCCASIONALLY,BUT NOT WHILE Drug use: No Past medical history, appointments, medications, allergies reviewed. Pertinent Lab/Diagnostic Studies are reviewed and discussed today Current Outpatient Medications: meloxicam (MOBIC) 15 mg tablet omeprazole (PRILOSEC) 40 mg capsule Review of Systems CONSTITUTIONAL: No fevers, chills night sweats, unintended weight loss CARDIOVASCULAR: No chest pain, dyspnea, palpitations, orthopnea, PND, ankle edema. PULM: No dyspnea, unexplained cough. GI: No dysphagia/odynophagia, problematic reflux, constipation, diarrhea, changes in stool habits, hematochezia, melena. : No new urinary complaints, including dysuria, gross hematuria or pyuria. NEURO: No new balance problems, peripheral weakness/paresthesias or numbness of concern. Physical Exam BP 98/70 Pulse 80 Resp 16 Wt 47.2 kg (104 lb) LMP 01/09/2017 BMI 18.42 kg/m General appearance: Well appearing, alert, in no acute distress, well nourished. Skin: Skin color, texture, turgor normal, no suspicious rashes or lesions Head: Normocephalic, no masses, lesions, tenderness or abnormalities Eyes: Anicteric sclera. Pupils are equally round and reactive to light. Extraocular movements are intact. Lungs: Lungs clear to auscultation. No wheezing, rhonchi, rales Heart: RRR without murmur, gallop, or rubs. Chest: she has palpable protrusion of the ribs at the costovertebral angle at multiple ribs levels. ASSESSMENT/PLAN: 1. Rib pain on right side - ICD9: 786.50, ICD10: R07.81. - XR RIBS BILATERAL/CHEST 4V - she likely has rib displacement, and will need to see the chiropractor. - wants pain meds till then so she can work. Michelle Wilcox MD documented in this encounter [facility] 11-18-2024 Telephone encounter Note james rivera message [facility] 11-18-2024 Miscellaneous Notes james rivera message Prescription Refill Information The patient has been identified by name and date of : Yes Caregiver verified no other encounters exist for this prescription request: Yes Caregiver confirmed with patient/requestor that no other refills are due, in the near future, with this provider at this time: Yes The last office visit in the department: 11/13/24 Does the patient have a future office visit with this provider/department: No Requested Prescriptions Pending Prescriptions Disp Refills oxyCODONE-acetaminophen (PERCOCET) 5-325 mg tablet 9 tablet 0 Sig: Take 1 tablet by mouth every 8 hours as needed for pain for up to 3 days. Lorie Torres LPN November 18, 2024 8:18 AM documented in this encounter [facility] 11-18-2024 Telephone encounter Note Prescription Refill Information The patient has been identified by name and date of : Yes Caregiver verified no other encounters exist for this prescription request: Yes Caregiver confirmed with patient/requestor that no other refills are due, in the near future, with this provider at this time: Yes The last office visit in the department: 11/13/24 Does the patient have a future office visit with this provider/department: No Requested Prescriptions Pending Prescriptions Disp Refills oxyCODONE-acetaminophen (PERCOCET) 5-325 mg tablet 9 tablet 0 Sig: Take 1 tablet by mouth every 8 hours as needed for pain for up to 3 days. Lorie Torres LPN November 18, 2024 8:[address] [facility] 11-13-2024 History of Present illness Narrative Radiology Service Progress Note PATIENT NAME: Lanie Lisa DATE OF SERVICE: November 13, 2024 TIME: 2:22 PM PATIENT IDENTITY VERIFICATION COMPLETED USING TWO (2) IDENTIFIERS: Name and Date of confirmed by patient verbally. FALL SCREENING: Has the patient had 2 falls in the last year or 1 fall with injury or currently using an Ambulatory Assistive Device (Walker, Cane, Wheelchair, Crutches, etc.)? No PATIENT GENDER DATA: Female. status: : No status: NO. PATIENT RELEVANT IMPLANT DATA REVIEWED: Not Applicable PATIENT PRESENTS WITH AN IMPLANTABLE OR ATTACHED INDUSTRIAL MAINTENANCE REPAIRER: No RADIOLOGY DEPARTMENT: General X-ray: Exam(s) Completed: Chest X-Ray PERIPHERAL IV DATA: Not applicable SIGNED BY: RT Jaime(R) November 13, 2024 2:22 PM documented in this encounter [facility] 11-13-2024 Miscellaneous Notes No concerning findings on chest x-ray documented in this encounter [facility] 11-13-2024 Note HNO ID: [id number] Author: ALEXIS DOBSON RT(R) Service: Radiology Author Type: Technologist Type: Progress Notes Filed: 11/13/2024 14:33 Note Text: Radiology Service Progress Note PATIENT NAME: Lanie Lisa DATE OF SERVICE: November 13, 2024 TIME: 2:22 PM PATIENT IDENTITY VERIFICATION COMPLETED USING TWO (2) IDENTIFIERS: Name and Date of confirmed by patient verbally. FALL SCREENING: Has the patient had 2 falls in the last year or 1 fall with injury or currently using an Ambulatory Assistive Device (Walker, Cane, Wheelchair, Crutches, etc.)? No PATIENT GENDER DATA: Female. status: : No status: NO. PATIENT RELEVANT IMPLANT DATA REVIEWED: Not Applicable PATIENT PRESENTS WITH AN IMPLANTABLE OR ATTACHED INDUSTRIAL MAINTENANCE REPAIRER: No RADIOLOGY DEPARTMENT: General X-ray: Exam(s) Completed: Chest X-Ray PERIPHERAL IV DATA: Not applicable SIGNED BY: RT Jaime(R) November 13, 2024 2:22 PM [facility] 11-13-2024 Progress note Formatting of t his note might be different from the original. No concerning findings on chest x-ray [facility] 11-13-2024 History of Present illness Narrative Images from the original note were not included. Subjective HPI Lanie Lisa is a 34 year old female.PMH significnt for ACTIVE PROBLEM LIST Acid Reflux Dysthymic Disorder Arthritis Acute Thoracic Myofascial Strain Anxiety Neurosis Tobacco Use Generalized Abdominal Pain Acute Superficial Gastritis Without Hemorrhage Presents today regarding chest wall discomfort. Notes that he has right-sided chest wall pain near the sternum, 3rd rib. Feels a lump here. Reports pain with movement and deep breathing. She reports pain occurred when she reached out about a week ago. States this has occurred 3-4 times over the year with minor movements. Feels like something pops in her chest. Then feels a knot in the area. Reports she had rib fractures when she fell at the age 13.. She did not see anyone when this occurred, thought it would pass on its own. Requesting pain medication. Review of Systems Constitutional: Negative. Respiratory: Negative. Cardiovascular: Negative. Musculoskeletal: Positive for arthralgias. Objective BP 103/67 Pulse 72 Resp 16 Wt 49.1 kg (108 lb 3.9 oz) LMP 01/09/2017 BMI 19.17 kg/m Physical Exam Vitals and nursing note reviewed. Constitutional: General: She is not in acute distress. Appearance: She is well-developed. She is not diaphoretic. HENT: Head: Normocephalic and atraumatic. Cardiovascular: Rate and Rhythm: Normal rate. Pulmonary: Effort: Pulmonary effort is normal. Chest: Comments: Tender to palpation, there may be some mild prominence of the third rib on the right side near sturnum, no crepitus no shortness of breath, no decrease in lung sounds Musculoskeletal: Comments: Skin: General: Skin is warm and dry. Neurological: Mental Status: She is alert. Sensory: No sensory deficit. Motor: No abnormal muscle tone. ALLERGIES Allergen Reactions Hydrocodone-Acetami* GI Upset nausea, no vomiting Current Outpatient Medications Medication Sig keTORolac (TORADOL) 10 mg tablet Take 1 tablet by mouth every 6 hours as needed for pain for up to 5 days. oxyCODONE-acetaminophen (PERCOCET) 5-325 mg tablet Take 1 tablet by mouth every 8 hours as needed for pain for up to 3 days. omeprazole (PRILOSEC) 40 mg capsule Take 1 capsule by mouth daily before breakfast. 1/2 hr before meal. (Patient not taking: Reported on 11/13/2024) No current facility-administered medications for this visit. PAST MEDICAL HISTORY Diagnosis Date Acid reflux Arthritis LEFT WRIST Dysthymic disorder 03/2009 Depression (non-psychotic) Endometriosis reports that she has quit smoking. Her smoking use included cigarettes. She has never used smokeless tobacco. She reports current alcohol use. She reports that she does not use drugs. Assessment and Plan ASSESSMENT/PLAN: 1. Chest wall discomfort - ICD9: 786.52, ICD10: R07.89 (primary diagnosis) 2. History of fractured rib - ICD9: V15.51, ICD10: Z87.81 avoid painful activities. gentle ROM. Toradol x 5 days - XR CHEST 2V FRONTAL/LAT - KETOROLAC 60 MG/2 ML INTRAMUSCULAR SOLUTION - KETOROLAC 10 MG TABLET - OXYCODONE-ACETAMINOPHEN 5 MG-325 MG TABLET for breakthrough pain 3. Stress incontinence of urine - ICD9: [id number], ICD10: N39.3 4. History of kidney stones - ICD9: V13.01, ICD10: Z87.442 5. History of hysterectomy - ICD9: V88.01, ICD10: Z90.710 She notes history of hysterectomy and now with stress incontinence. Has seen gynecology/urology Dr. Tierney Alfonso in the past. Recommend recheck with her. - CONSULT TO FEMALE UROLOGY/URO GYNECOLOGY Vaughn Shrestha APRN.CNS Medical Decision Making: Problems: Low: Acute, uncomplicated illness or injury Moderate: 1+ chronic illnesses with change Data: Unique test(s) ordered: 1 Risk: Moderate: Drug management Medical Decision Making Level: 4 - Moderate documented in this encounter [facility] 11-13-2024 Note HNO ID: [id number] Author: VAUGHN SHRESTHA APRN.RESIDENTIAL CHILD CARE COUNSELOR Service: ? Author Type: Nurse Specialist Type: Progress Notes Filed: 11/13/2024 16:46 Note Text: Subjective HPI Lanie Lisa is a 34 year old female.PMH significnt for ACTIVE PROBLEM LIST Acid Reflux Dysthymic Disorder Arthritis Acute Thoracic Myofascial Strain Anxiety Neurosis Tobacco Use Generalized Abdominal Pain Acute Superficial Gastritis Without Hemorrhage Presents today regarding chest wall discomfort. Notes that he has right-sided chest wall pain near the sternum, 3rd rib. Feels a lump here. Reports pain with movement and deep breathing. She reports pain occurred when she reached out about a week ago. States this has occurred 3-4 times over the year with minor movements. Feels like something pops in her chest. Then feels a knot in the area. Reports she had rib fractures when she fell at the age 13.. She did not see anyone when this occurred, thought it would pass on its own. Requesting pain medication. Review of Systems Constitutional: Negative. Respiratory: Negative. Cardiovascular: Negative. Musculoskeletal: Positive for arthralgias. Objective BP 103/67 Pulse 72 Resp 16 Wt 49.1 kg (108 lb 3.9 oz) LMP 01/09/2017 BMI 19.17 kg/m? Physical Exam Vitals and nursing note reviewed. Constitutional: General: She is not in acute distress. Appearance: She is well-developed. She is not diaphoretic. HENT: Head: Normocephalic and atraumatic. Cardiovascular: Rate and Rhythm: Normal rate. Pulmonary: Effort: Pulmonary effort is normal. Chest: Comments: Tender to palpation, there may be some mild prominence of the third rib on the right side near sturnum, no crepitus no shortness of breath, no decrease in lung sounds Musculoskeletal: Comments: Skin: General: Skin is warm and dry. Neurological: Mental Status: She is alert. Sensory: No sensory deficit. Motor: No abnormal muscle tone. ALLERGIES Allergen Reactions Hydrocodone-Acetami* GI Upset nausea, no vomiting Current Outpatient Medications Medication Sig keTORolac (TORADOL) 10 mg tablet Take 1 tablet by mouth every 6 hours as needed for pain for up to 5 days. oxyCODONE-acetaminophen (PERCOCET) 5-325 mg tablet Take 1 tablet by mouth every 8 hours as needed for pain for up to 3 days. omeprazole (PRILOSEC) 40 mg capsule Take 1 capsule by mouth daily before breakfast. 1/2 hr before meal. (Patient not taking: Reported on 11/13/2024) No current facility-administered medications for this visit. PAST MEDICAL HISTORY Diagnosis Date Acid reflux Arthritis LEFT WRIST Dysthymic disorder 03/2009 Depression (non-psychotic) Endometriosis reports that she has quit smoking. Her smoking use included cigarettes. She has never used smokeless tobacco. She reports current alcohol use. She reports that she does not use drugs. Assessment and Plan ASSESSMENT/PLAN: 1. Chest wall discomfort - ICD9: 786.52, ICD10: R07.89 (primary diagnosis) 2. History of fractured rib - ICD9: V15.51, ICD10: Z87.81 avoid painful activities. gentle ROM. Toradol x 5 days - XR CHEST 2V FRONTAL/LAT - KETOROLAC 60 MG/2 ML INTRAMUSCULAR SOLUTION - KETOROLAC 10 MG TABLET - OXYCODONE-ACETAMINOPHEN 5 MG-325 MG TABLET for breakthrough pain 3. Stress incontinence of urine - ICD9: [id number], ICD10: N39.3 4. History of kidney stones - ICD9: V13.01, ICD10: Z87.442 5. History of hysterectomy - ICD9: V88.01, ICD10: Z90.710 She notes history of hysterectomy and now with stress incontinence. Has seen gynecology/urology Dr. Tierney Alfonso in the past. Recommend recheck with her. - CONSULT TO FEMALE UROLOGY/URO GYNECOLOGY Vaughn Shrestha APRN.RESIDENTIAL CHILD CARE COUNSELOR Medical Decision Making: Problems: Low: Acute, uncomplicated illness or injury Moderate: 1+ chronic illnesses with change Data: Unique test(s) ordered: 1 Risk: Moderate: Drug management Medical Decision Making Level: 4 - Moderate [facility] 11-10-2024 Miscellaneous Notes Protocol recommends go to ER now. 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 She states she doesn't know if they will let her leave until after her shift is over, but she wants to follow protocol. I let Pt to call back if she has any issues and she said she would.Care plan reviewed with patient. Patient voices understanding. Advised patient that if symptoms get worse to call 911. Reason for Disposition [1] SEVERE pain AND [2] not improved 2 hours after pain medicine Answer Assessment - Initial Assessment Questions 1. ONSET: The pain started on Sunday 2. LOCATION: The pain is located under her collar bone on right side, goes up into neck and behind ear on R, goes into R armpit and ribcage, and deep into the muscles of upper chest above R breast. 3. PAIN: How bad is the pain? (Scale 1-10; or mild, moderate, severe) - MILD (1-3): Doesn't interfere with normal activities. - MODERATE (4-7): Interferes with normal activities (e.g., work or school) or awakens from sleep. - SEVERE (8-10): Excruciating pain, unable to do any normal activities, unable to move arm at all due to pain. Pain is 10/10 and constant. States the only thing that makes it better is laying down and she uses heat on it. 4. WORK OR EXERCISE: Pt reports she is at work and that is making it worse because she walks around and lifts heavy parts all day. Denies exercise that involved this part of the body. 5. CAUSE: Pt reports she heard a pop before the shoulder pain, under her R clavicle. States this has happened before when she was putting her coat on, her boyfriend picking her up, this times she was getting out of bed and moved the wrong way. 6. OTHER SYMPTOMS: Pt reports neck pain, swelling, and nauseous. Pt reports rash Fri night, but states it could have been something different. Pt denies fever, numbness, weakness. 7. : Denies any chance of , had hyster. Protocols used: Shoulder [id number] documented in this encounter [facility] 11-10-2024 Telephone encounter Note Protocol recommends go to ER now. 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 She states she doesn't know if they will let her leave until after her shift is over, but she wants to follow protocol. I let Pt to call back if she has any issues and she said she would.Care plan reviewed with patient. Patient voices understanding. Advised patient that if symptoms get worse to call 911. Reason for Disposition [1] SEVERE pain AND [2] not improved 2 hours after pain medicine Answer Assessment - Initial Assessment Questions 1. ONSET: The pain started on Sunday 2. LOCATION: The pain is located under her collar bone on right side, goes up into neck and behind ear on R, goes into R armpit and ribcage, and deep into the muscles of upper chest above R breast. 3. PAIN: How bad is the pain? (Scale 1-10; or mild, moderate, severe) - MILD (1-3): Doesn't interfere with normal activities. - MODERATE (4-7): Interferes with normal activities (e.g., work or school) or awakens from sleep. - SEVERE (8-10): Excruciating pain, unable to do any normal activities, unable to move arm at all due to pain. Pain is 10/10 and constant. States the only thing that makes it better is laying down and she uses heat on it. 4. WORK OR EXERCISE: Pt reports she is at work and that is making it worse because she walks around and lifts heavy parts all day. Denies exercise that involved this part of the body. 5. CAUSE: Pt reports she heard a pop before the shoulder pain, under her R clavicle. States this has happened before when she was putting her coat on, her boyfriend picking her up, this times she was getting out of bed and moved the wrong way. 6. OTHER SYMPTOMS: Pt reports neck pain, swelling, and nauseous. Pt reports rash Fri night, but states it could have been something different. Pt denies fever, numbness, weakness. 7. : Denies any chance of , had hyster. Protocols used: Shoulder [id number] [facility] 10-07-2024 Note HNO ID: [id number] Author: VAUGHN SHRESTHA APRN.RESIDENTIAL CHILD CARE COUNSELOR Service: ? Author Type: Nurse Specialist Type: Progress Notes Filed: 10/07/2024 13:48 Note Text: Subjective Lanie Lisa is a 34 year old female. HPI Presents today left third finger injury. She is seen in the emergency department for this. Notes bruising the distal tip of her finger. She was up-to-date on tetanus. She was seen in clinic September 30, 2024. Requesting pain medication. Provided with hydrocodone acetaminophen. Today reports she continues to have pain in her finger. Has returned to work. Lost her finger protection. Has not used a dressing due to financial constraints. No drainage but not yet healed. No fever reported. Notes tylenol and ibuprofen helping a little. Hydrocodone caused nausea. Review of Systems Constitutional: Negative. Musculoskeletal: Positive for arthralgias. Objective BP 99/66 Pulse 80 Resp 16 Wt 49.7 kg (109 lb 9.1 oz) LMP 01/09/2017 BMI 19.41 kg/m? Physical Exam Vitals and nursing note reviewed. Constitutional: General: She is not in acute distress. Appearance: She is well-developed. She is not diaphoretic. HENT: Head: Normocephalic and atraumatic. Cardiovascular: Rate and Rhythm: Normal rate. Pulmonary: Effort: Pulmonary effort is normal. Musculoskeletal: Comments: Tender to palpation left third finger, PT wound distal tip ~1/2 diam. red wound base, no drainage. Skin: General: Skin is warm and dry. Neurological: Mental Status: She is alert. Sensory: No sensory deficit. Motor: No abnormal muscle tone. ALLERGIES No Known Allergies Current Outpatient Medications Medication Sig mupirocin (BACTROBAN) 2 % cream Apply 1 application to affected area three times a day for 10 days. Location: middle finger- left omeprazole (PRILOSEC) 40 mg capsule Take 1 capsule by mouth daily before breakfast. 1/2 hr before meal. (Patient not taking: Reported on 04/21/2024) No current facility-administered medications for this visit. PAST MEDICAL HISTORY Diagnosis Date Acid reflux Arthritis LEFT WRIST Dysthymic disorder 03/2009 Depression (non-psychotic) Endometriosis reports that she has quit smoking. Her smoking use included cigarettes. She has never used smokeless tobacco. She reports current alcohol use. She reports that she does not use drugs. Assessment and Plan ASSESSMENT/PLAN: 1. Injury of finger of left hand, subsequent encounter - ICD9: V58.89, 959.5, ICD10: S69.92XD (primary diagnosis) - OXYCODONE-ACETAMINOPHEN 5 MG-325 MG TABLET - OMEPRAZOLE 40 MG CAPSULE,DELAYED RELEASE - MELOXICAM 15 MG TABLET - OXYCODONE-ACETAMINOPHEN 5 MG-325 MG TABLET 2. Epigastric pain - ICD9: 789.06, ICD10: R10.13 - OMEPRAZOLE 40 MG CAPSULE,DELAYED RELEASE Recommend add an NSAID, meloxicam once daily until feeling improved. Switch to oxycodone acetaminophen due to GI upset on hydrocodone acetaminophen for breakthrough pain. Omeprazole daily while taking these mediations then discontinue. Let us know if not continuing to improve. Vaughn Shrestha APRN.RESIDENTIAL CHILD CARE COUNSELOR Medical Decision Making: Problems: Low: Acute, uncomplicated illness or injury Data: Unique source(s) for external note(s) reviewed: 1 Risk: Moderate: Drug management Medical Decision Making Level: 3 - Low [facility] 10-07-2024 History of Present illness Narrative Subjective Lanie Lisa is a 34 year old female. HPI Presents today left third finger injury. She is seen in the emergency department for this. Notes bruising the distal tip of her finger. She was up-to-date on tetanus. She was seen in clinic September 30, 2024. Requesting pain medication. Provided with hydrocodone acetaminophen. Today reports she continues to have pain in her finger. Has returned to work. Lost her finger protection. Has not used a dressing due to financial constraints. No drainage but not yet healed. No fever reported. Notes tylenol and ibuprofen helping a little. Hydrocodone caused nausea. Review of Systems Constitutional: Negative. Musculoskeletal: Positive for arthralgias. Objective BP 99/66 Pulse 80 Resp 16 Wt 49.7 kg (109 lb 9.1 oz) LMP 01/09/2017 BMI 19.41 kg/m Physical Exam Vitals and nursing note reviewed. Constitutional: General: She is not in acute distress. Appearance: She is well-developed. She is not diaphoretic. HENT: Head: Normocephalic and atraumatic. Cardiovascular: Rate and Rhythm: Normal rate. Pulmonary: Effort: Pulmonary effort is normal. Musculoskeletal: Comments: Tender to palpation left third finger, PT wound distal tip ~1/2 diam. red wound base, no drainage. Skin: General: Skin is warm and dry. Neurological: Mental Status: She is alert. Sensory: No sensory deficit. Motor: No abnormal muscle tone. ALLERGIES No Known Allergies Current Outpatient Medications Medication Sig mupirocin (BACTROBAN) 2 % cream Apply 1 application to affected area three times a day for 10 days. Location: middle finger- left omeprazole (PRILOSEC) 40 mg capsule Take 1 capsule by mouth daily before breakfast. 1/2 hr before meal. (Patient not taking: Reported on 04/21/2024) No current facility-administered medications for this visit. PAST MEDICAL HISTORY Diagnosis Date Acid reflux Arthritis LEFT WRIST Dysthymic disorder 03/2009 Depression (non-psychotic) Endometriosis reports that she has quit smoking. Her smoking use included cigarettes. She has never used smokeless tobacco. She reports current alcohol use. She reports that she does not use drugs. Assessment and Plan ASSESSMENT/PLAN: 1. Injury of finger of left hand, subsequent encounter - ICD9: V58.89, 959.5, ICD10: S69.92XD (primary diagnosis) - OXYCODONE-ACETAMINOPHEN 5 MG-325 MG TABLET - OMEPRAZOLE 40 MG CAPSULE,DELAYED RELEASE - MELOXICAM 15 MG TABLET - OXYCODONE-ACETAMINOPHEN 5 MG-325 MG TABLET 2. Epigastric pain - ICD9: 789.06, ICD10: R10.13 - OMEPRAZOLE 40 MG CAPSULE,DELAYED RELEASE Recommend add an NSAID, meloxicam once daily until feeling improved. Switch to oxycodone acetaminophen due to GI upset on hydrocodone acetaminophen for breakthrough pain. Omeprazole daily while taking these mediations then discontinue. Let us know if not continuing to improve. Vaughn Shrestha APRN.RESIDENTIAL CHILD CARE COUNSELOR Medical Decision Making: Problems: Low: Acute, uncomplicated illness or injury Data: Unique source(s) for external note(s) reviewed: 1 Risk: Moderate: Drug management Medical Decision Making Level: 3 - Low documented in this encounter [facility] 09-30-2024 Telephone encounter Note Pharmacy contacted. Spoke to pharmacist and gave provider message. Pharmacist reports he will get rx ready for pt. Kim Fam LPN [facility] 09-30-2024 Miscellaneous Notes Pharmacy contacted. Spoke to pharmacist and gave provider message. Pharmacist reports he will get rx ready for pt. Kim Fam LPN Please contact pharmacy and advise I would approve filling. Patient had #8 prescribed on Sunday. If taking every 6 hours, would be out of medication appropriately. Patient has a recent injury. Short supply #5 prescribed to be used prn. Robert Brewer PA-C Call to pt. Pt states that she took her last Percocet this morning and states she discussed this with you at the office visit. She currently has no medication at this time. Did advise pt to use Tylenol/Motrin for pain, not to use with Percocet, but pt states she does not have any more. Please advise. Shawna Cerna MA Noted. Please advise patient to use percocet prescribed (she was given #8) Use only prn and otherwise taking tylenol/motrin prn. Do not combine tylenol with percocet. Robert Brewer PA-C 09/30/2024 Patient calling said there was a problem with one of her rx pharmacy would not fill. I phoned [facility] and spoke to pharmacist and he said not filling the Hydrocodone rx, patient had just gotten Oxycodone [address] Ilir Bennett from [facility] filled at [facility] on 09/28/2024, when he checked OARS. Please advise documented in this encounter [facility] 09-30-2024 Telephone encounter Note Please contact pharmacy and advise I would approve filling. Patient had #8 prescribed on Sunday. If taking every 6 hours, would be out of medication appropriately. Patient has a recent injury. Short supply #5 prescribed to be used prn. Robert Brewer PA-C [facility] 09-30-2024 Telephone encounter Note Call to pt. Pt states that she took her last Percocet this morning and states she discussed this with you at the office visit. She currently has no medication at this time. Did advise pt to use Tylenol/Motrin for pain, not to use with Percocet, but pt states she does not have any more. Please advise. Shawna Cerna MA [facility] 09-30-2024 Telephone encounter Note Noted. Please advise patient to use percocet prescribed (she was given #8) Use only prn and otherwise taking tylenol/motrin prn. Do not combine tylenol with percocet. Robert Brewer PA-C 09/30/2024 [facility] 09-30-2024 Telephone encounter Note Patient calling said there was a problem with one of her rx pharmacy would not fill. I phoned [facility] and spoke to pharmacist and he said not filling the Hydrocodone rx, patient had just gotten Oxycodone [address] Ilir Bennett from [facility] filled at [facility] on 09/28/2024, when he checked OARS. Please advise [facility] 09-30-2024 Note HNO ID: [id number] Author: ROBERT BREWER PA-C Service: ? Author Type: Physician Turning Lathe Tender Type: Progress Notes Filed: 09/30/2024 17:30 Note Text: 09/30/2024 Patient presents with: ED Follow-up: left middle finger- 09/28/24 and wants meds for pain oxycodone SUBJECTIVE: This is a 34 year old that is here today for Complaint(s) of left midlde finger pain. States she cut the tip of her finger with a knife while cutting off a zip tie around a cord. She was seen in the ED. Nothing to suture. Lost the distal tip of her finger. UTD on tetanus. Denies fever/chills, drainage that she is aware. She had not tried changing the bandages. PAST MEDICAL HISTORY Diagnosis Date Acid reflux Arthritis LEFT WRIST Dysthymic disorder 03/2009 Depression (non-psychotic) Endometriosis ALLERGIES Patient has no known allergies. MEDICATIONS Current Outpatient Medications Medication Sig omeprazole (PRILOSEC) 40 mg capsule Take 1 capsule by mouth daily before breakfast. 1/2 hr before meal. (Patient not taking: Reported on 04/21/2024) No current facility-administered medications for this visit. SOCIAL HISTORY Social History Tobacco Use Smoking status: Former Types: Cigarettes Smokeless tobacco: Never Tobacco comments: approx 2 cig per day Vaping Use Vaping status: current everyday user Substances: Nicotine, Flavoring Devices: RefBABADUble tank Substance Use Topics Alcohol use: Yes Comment: OCCASIONALLY,BUT NOT WHILE Drug use: No REVIEW OF SYSTEMS See HPI OBJECTIVE: BP 96/56 (BP Site: Right Arm, BP Position: Sitting, BP Cuff Size: Regular Adult) Pulse 73 Resp 12 Ht 160 cm (5' 3) Wt 45.4 kg (100 lb) LMP 01/09/2017 SpO2 99% BMI 17.71 kg/m? APPEARANCE Well appearing, alert, in no acute distress, well-hydrated, well nourished. EXTREMITIES bandage removed. Left middle finger distal phalanx tip with minimal bloody drainage. Not actively bleeding. Neurovascular status intact. Good capillary refill. Sensation grossly intact. No purulent drainage. No surrounding erythema, warmth, red streaking. +TTP. ASSESSMENT/PLAN: 1. Cut of skin of middle finger - ICD9: 883.0, ICD10: S61.218A Elevated, tylenol/motrin prn Prescribed 8 percocet at the ED. Patient is requesting something stronger for pain for a few days. - HYDROCODONE 7.5 MG-ACETAMINOPHEN 325 MG TABLET 1 time prescription for Vicodin. Advise only prn, no additional refills. Reviewed red flags and when to seek care sooner. Reviewed wound care and signs of infection. The patient indicates understanding of these issues and agrees with the plan. Reviewed red flags and when to seek care sooner. Robert Brewer PA-C [facility] 09-30-2024 History of Present illness Narrative 09/30/2024 Patient presents with: ED Follow-up: left middle finger- 09/28/24 and wants meds for pain oxycodone SUBJECTIVE: This is a 34 year old that is here today for Complaint(s) of left midlde finger pain. States she cut the tip of her finger with a knife while cutting off a zip tie around a cord. She was seen in the ED. Nothing to suture. Lost the distal tip of her finger. UTD on tetanus. Denies fever/chills, drainage that she is aware. She had not tried changing the bandages. PAST MEDICAL HISTORY Diagnosis Date Acid reflux Arthritis LEFT WRIST Dysthymic disorder 03/2009 Depression (non-psychotic) Endometriosis ALLERGIES Patient has no known allergies. MEDICATIONS Current Outpatient Medications Medication Sig omeprazole (PRILOSEC) 40 mg capsule Take 1 capsule by mouth daily before breakfast. 1/2 hr before meal. (Patient not taking: Reported on 04/21/2024) No current facility-administered medications for this visit. SOCIAL HISTORY Social History Tobacco Use Smoking status: Former Types: Cigarettes Smokeless tobacco: Never Tobacco comments: approx 2 cig per day Vaping Use Vaping status: current everyday user Substances: Nicotine, Flavoring Devices: Lien Enforcement Substance Use Topics Alcohol use: Yes Comment: OCCASIONALLY,BUT NOT WHILE Drug use: No REVIEW OF SYSTEMS See HPI OBJECTIVE: BP 96/56 (BP Site: Right Arm, BP Position: Sitting, BP Cuff Size: Regular Adult) Pulse 73 Resp 12 Ht 160 cm (5' 3) Wt 45.4 kg (100 lb) LMP 01/09/2017 SpO2 99% BMI 17.71 kg/m APPEARANCE Well appearing, alert, in no acute distress, well-hydrated, well nourished. EXTREMITIES bandage removed. Left middle finger distal phalanx tip with minimal bloody drainage. Not actively bleeding. Neurovascular status intact. Good capillary refill. Sensation grossly intact. No purulent drainage. No surrounding erythema, warmth, red streaking. +TTP. ASSESSMENT/PLAN: 1. Cut of skin of middle finger - ICD9: 883.0, ICD10: S61.218A Elevated, tylenol/motrin prn Prescribed 8 percocet at the ED. Patient is requesting something stronger for pain for a few days. - HYDROCODONE 7.5 MG-ACETAMINOPHEN 325 MG TABLET 1 time prescription for Vicodin. Advise only prn, no additional refills. Reviewed red flags and when to seek care sooner. Reviewed wound care and signs of infection. The patient indicates understanding of these issues and agrees with the plan. Reviewed red flags and when to seek care sooner. Robert Brewer PA-C documented in this encounter [facility] 08-04-2024 Telephone encounter Note Patient failed to cancel and no showed today's appt. Letter sent. Cezar Swift MA [facility] 08-04-2024 Miscellaneous Notes Patient failed to cancel and no showed today's appt. Letter sent. Cezar Swift MA documented in this encounter [facility] 07-15-2024 Telephone encounter Note LVM informing patient of appt cancellation. [facility] 07-15-2024 Miscellaneous Notes LVM informing patient of appt cancellation. Lora Garcia MA [facility] Clerical Pool Please call and cancel her appointment on 07/[address] Hawley. She does not treat this. Please get her schedule with a hand specialist or plastic/hand. documented in this encounter [facility] 07-15-2024 Telephone encounter Note Lora Garcia MA P Stro [facility] Clerical Pool Please call and cancel her appointment on 07/[address] Hawley. She does not treat this. Please get her schedule with a hand specialist or plastic/hand. [facility] 07-03-2024 Note Addended by: MICHELLE WILCOX on: 07/03/2024 11:46 AM Modules accepted: Orders [facility] 07-03-2024 Miscellaneous Notes Addended by: MICHELLE WILCOX on: 07/03/2024 11:46 AM Modules accepted: Orders documented in this encounter [facility] 07-03-2024 History of Present illness Narrative Reason for Visit Patient presents with: Trauma: Tip of left thumb cut yesterday, 07/02/24, cutting potatoes, washed with soap and water, neosporin, super glued it, ER was to full and would not wait. History of MRSA in same finger around 2018 Lanie Lisa is a 34 year old female who presents here today for CPE. Health Maintenance DTaP,Tdap,Td Vaccine(5 - Tdap) Hepatitis B Vaccine(1 of 3 - 19+ 3-dose series) Cervical Cancer Screening Covid-19 Vaccine( season) HPI Tip of left thumb cut yesterday, 07/02/24, cutting potatoes, washed with soap and water, neosporin, super glued it. Today she notes throbbing in her thumbs, it is swelled, Woke her up at night from throbbing. H/o mrsa in that finger in 2018 and she is very concerned that she may have it again. She took 2 narco, that she had from the past. Before supergluing it, she washed it well and put neosporin on it. Could not go to work today and would like work excuse. She cannot take brufen and tylenol does not help. Bmi is only 16 but she is eats lot of food, she has great metabolism No problem-specific Assessment & Plan notes found for this encounter. PAST MEDICAL HISTORY No date: Acid reflux No date: Arthritis Comment: LEFT WRIST 03/2009: Dysthymic disorder Comment: Depression (non-psychotic) No date: Endometriosis PAST SURGICAL HISTORY 03/01/16: COLONOSCOPY FLX DX W/COLLJ SPEC WHEN PFRMD Comment: Colonoscopy with mac No date: DILATION & CURETTAGE DX&/THER NONOBSTETRIC Comment: Dilation & curettageX2 12/12/2016: EGD TRANSORAL BIOPSY SINGLE/MULTIPLE Comment: gastritis No date: EXT HYSTERECTOMY,W/PARTIAL VAGINECTO Comment: No date: IMPLANON 08/04/2019: LAP APPENDICOSTOMY 12/23/2015: LAPS ABD PRTM&OMENTUM DX W/WO SPEC BR/WA SPX Comment: Laparoscopy 08/04/2019: OOPHORECTOMY PARTIAL OR TOTAL; Right No date: PAST SURGICAL HISTORY OF Comment: oophorectomy/ salpingectomy left 02/2016: PAST SURGICAL HISTORY OF Comment: debridment left thumb staph. No date: TONSILLECTOMY PRIMARY/SECONDARY <AGE 12 Comment: Tonsillectomy 07/05/2015: US KIDNEY Comment: normal FAMILY HISTORY Problem Relation Age of Onset Cancer Mother OVARIAN CANCER Osteoporosis Mother other (Other) Mother Crohn's disease Thyroid Father Heart Maternal Grandmother Diabetes Paternal Grandmother Diabetes Paternal Grandfather Cancer Maternal Aunt OVARIAN CANCER Social History Tobacco Use Smoking status: Former Types: Cigarettes Smokeless tobacco: Never Tobacco comments: approx 2 cig per day Vaping Use Vaping status: current everyday user Substances: Nicotine, Flavoring Devices: Lien Enforcement Substance Use Topics Alcohol use: Yes Comment: OCCASIONALLY,BUT NOT WHILE Drug use: No Past medical history, appointments, medications, allergies reviewed. Pertinent Lab/Diagnostic Studies are reviewed and discussed today Current Outpatient Medications: omeprazole (PRILOSEC) 40 mg capsule tamsulosin (FLOMAX) 0.4 mg ondansetron orally disintegrating (ZOFRAN ODT) 4 mg disintegrating tablet sucralfate (CARAFATE) 1 gram tablet DULoxetine (CYMBALTA) 30 mg capsule ALBUTEROL SULFATE INHALATION Review of Systems CONSTITUTIONAL: No fevers, chills, nightsweats, unintended weight loss HEENT: Denies frequent or severe heaches, nasal congestion/sinus symptoms, problematic allergy problems. EYES: No diplopia or blurry vision. CARDIOVASCULAR: No chest pain, dyspnea, palpitations, orthopnea, PND, ankle edema. PULM: No dyspnea, unexplained cough. GI: No dysphagia/odynophagia, problematic reflux, constipation, diarrhea, changes in stool habits, hematochezia, melena. : No new urinary complaints, including dysuria, gross hematuria or pyuria. NEURO: No new balance problems, peripheral weakness/paresthesias or numbness of concern. MUSC-SKEL: No new joint pain, swelling, or erythema. PSY: No concerns regarding depression, anxiety or panic. INTEGUMENTARY: No new skin changes (rash, new or changing mole, new growth) Physical Exam BP 98/78 (BP Site: Left Arm) Pulse 96 Wt 43.4 kg (95 lb 9.6 oz) LMP 01/09/2017 SpO2 98% BMI 16.93 kg/m General appearance: Well appearing, alert, in no acute distress, well-hydrated, well nourished. Skin: Skin color, texture, turgor normal, no suspicious rashes or lesions Head: Normocephalic, no masses, lesions, tenderness or abnormalities Eyes: Anicteric sclera. Pupils are equally round and reactive to light. Extraocular movements are intact. Oropharynx: Lips, mucosa, and tongue normal, teeth and gums normal, oropharynx normal Neck: Supple, no adenopathy; thyroid symmetric, normal size, no bruits Back: Normal exam Lungs: Lungs clear to auscultation. No wheezing, rhonchi, rales. Finger: tip of the index finger has a bruise that is super glued on. There is dried blood around, and it is very painful ASSESSMENT/PLAN: 1. Cut of finger - ICD9: 883.0, ICD10: S61.219A (primary diagnosis) - CONSULT TO GENERAL SURGERY - DOXYCYCLINE HYCLATE 100 MG TABLET - COMPLETE BLOOD COUNT AND DIFFERENTIAL 2. Hospital acquired MRSA infection - ICD9: 041.12, ICD10: A49.02 - VITAMIN D 25 HYDROXY 4. Vitamin B12 deficiency - ICD9: 266.2, ICD10: E53.8 - VITAMIN B12 5. Intestinal malabsorption, unspecified type - ICD9: 579.9, ICD10: K90.9 - IRON AND TIBC - FERRITIN - COMPREHENSIVE METABOLIC PANEL Michelle Wilcox MD documented in this encounter [facility] 05-06-2024 History of Present illness Narrative FOLLOW UP PODIATRIC OFFICE VISIT Chief Complaint: This 33 year old who presents for follow up:left calcaneal fracture Patient presents to clinic for follow-up left calcaneal fracture Was placed in cast. Cut the cast off her self using a razor Now in boot Went to ER last night because of pain. Was given norco x 10 tablets. PAIN EVALUATION 05/06/2024 1444 Pain Level: 10 Pain Location: Foot-Left Description: Tingling Duration Amount of Time: 3 Duration Units: Weeks Frequency: Continuous Intervention/Comfort measure: Relaxation;Reposition;Medication No results found for: HBA1C PCP: Michelle Wilcox MD PAST MEDICAL HISTORY Diagnosis Date Acid reflux Arthritis LEFT WRIST Dysthymic disorder 03/2009 Depression (non-psychotic) Endometriosis Current Outpatient Medications Medication Sig ibuprofen (MOTRIN) 800 mg tablet Take 1 tablet by mouth every 8 hours as needed for pain. Take with food. HYDROcodone-acetaminophen (NORCO) 5-325 mg per tablet Take 1 tablet by mouth every 6 hours as needed for pain for up to 7 days. omeprazole (PRILOSEC) 40 mg capsule Take 1 capsule by mouth daily before breakfast. 1/2 hr before meal. (Patient not taking: Reported on 04/21/2024) tamsulosin (FLOMAX) 0.4 mg Take 1 capsule by mouth daily at bedtime. (Patient not taking: Reported on 04/21/2024) ondansetron orally disintegrating (ZOFRAN ODT) 4 mg disintegrating tablet Take 1 tablet by mouth every 6 hours as needed for nausea/vomiting. (Patient not taking: Reported on 04/24/2024) sucralfate (CARAFATE) 1 gram tablet Take 1 tablet by mouth four times daily. (Patient not taking: Reported on 04/24/2024) DULoxetine (CYMBALTA) 30 mg capsule Take 1 capsule by mouth once daily. (Patient not taking: Reported on 04/21/2024) ALBUTEROL SULFATE INHALATION Inhale as instructed. (Patient not taking: Reported on 04/24/2024) No current facility-administered medications for this visit. ALLERGIES No Known Allergies PAST SURGICAL HISTORY Procedure Laterality Date COLONOSCOPY FLX DX W/COLLJ SPEC WHEN PFRMD 03/01/16 Colonoscopy with mac DILATION & CURETTAGE DX&/THER NONOBSTETRIC Dilation & curettageX2 EGD TRANSORAL BIOPSY SINGLE/MULTIPLE 12/12/2016 gastritis EXT HYSTERECTOMY,W/PARTIAL VAGINECTO Dr.Seals ELIAS LAP APPENDICOSTOMY 08/04/2019 LAPS ABD PRTM&OMENTUM DX W/WO SPEC BR/WA SPX 12/23/2015 Laparoscopy OOPHORECTOMY PARTIAL OR TOTAL Right 08/04/2019 PAST SURGICAL HISTORY OF oophorectomy/ salpingectomy left PAST SURGICAL HISTORY OF 02/2016 debridment left thumb staph. TONSILLECTOMY PRIMARY/SECONDARY <AGE 13 Tonsillectomy US KIDNEY 07/05/2015 normal Physical Exam: OBJECTIVE: Constitutional: Pt is a well developed 33 year old female who is alert, oriented, cooperative and in no apparent distress. Eyes: Following during examination. No redness or drainage. Respiratory: RR normal and nonlabored. Even breathing. No evidence of distress. Psychology: Patient is engaged during conversation. Normal affect and mood. Does not appear depressed or anxious. NVSI unchanged from previous visit. Dermatological: Nails 1-5 b/l are normal. Webspaces clean and dry 1-4 b/l. Skin appears well hydrated and supple. good color, texture, turgor. No open lesions present. No callosities present. Musculoskeletal/Orthopaedic: Patient has pain to palpation of left foot Xrays reviewed. Healing fracture of left calcaneus ASSESSMENT: Closed fracture of left foot, initial encounter (primary encounter diagnosis) PLAN: Discussed fracture of left calcaneus. Reviewed last set of xrays. Xrays show healing. She has cut her cast off herself using a razor blade. She herself did not trust the boot and elected the cast. She has already removed the cast and has returned to the boot. Discussed casting vs boot. She has elected to continue with boot. Stressed the importance of nwb Repeat xrays first week of May and then again by May 27 Discussed risk of slow healing due to smoking Discussed pain in left foot. Suspect pain should improve. Went to ED yesterday and was given 10 norco. After long discussion regarding her pain, I told her I will give her norco for only one week. By next week, she will need to take tylenol or make an appointment with pain management. She is in agreement. AMB ROOMING INTAKE FLOWSHEET DATA Pain Pain Level: 10 Pain Location: Foot-Left Description: Tingling Duration Amount of Time: 3 Duration Units: Weeks Frequency: Continuous Intervention/Comfort measure: Relaxation, Reposition, Medication Patient presents with: Left Foot - Established Patient, Follow Up, Fracture, Pain Patient present to office in [employer] with crutches as assistive device. Patient present to ED yesterday for norco refill as she stating tramadol does nothing. Patient was provided norco q4h for 2 days ( 10 tabs ) In ED on 05/05/2024. Patient states that she cut her cast off her self yesterday. Patient states she last took norco at 6 am this morning. Patient drove herself to appointment. Madalyn Benton LPN documented in this encounter [facility] 05-06-2024 Instructions Simón Tellez - 05/06/2024 3:14 PM EDT Repeat xrays on May 13 and by May 27 Continue with boot and nonweightbearing. Continue with crutches. documented in this encounter [facility] 05-01-2024 Telephone encounter Note Patient called and states she waiting for 2 hours in the ED and had not been seen and left. States she feels she does not need to be seen. [facility] 05-01-2024 Miscellaneous Notes Patient called and states she waiting for 2 hours in the ED and had not been seen and left. States she feels she does not need to be seen. Advised patient to present to ED for evaluation. Madalyn Benton LPN Prescription Refill Information The patient has been identified by name and date of : Yes Caregiver verified no other encounters exist for this prescription request: Yes Caregiver confirmed with patient/requestor that no other refills are due, in the near future, with this provider at this time: Yes The last office visit in the department: 04/29/2024 Does the patient have a future office visit with this provider/department: Yes 05/06 Requested Prescriptions Pending Prescriptions Disp Refills oxyCODONE-acetaminophen (PERCOCET) 5-325 mg tablet 28 tablet 0 Sig: Take 1 tablet by mouth every 6 hours as needed for pain for up to 7 days. Pt states that the Tramadol and Tylenol are not working. She got her crutch stuck and fell forward and since that, pain is worse. Nola Alvarado MA May 01, 2024 1:44 PM documented in this encounter [facility] 05-01-2024 Telephone encounter Note Advised patient to present to ED for evaluation. Madalyn Benton LPN [facility] 05-01-2024 Telephone encounter Note Prescription Refill Information The patient has been identified by name and date of : Yes Caregiver verified no other encounters exist for this prescription request: Yes Caregiver confirmed with patient/requestor that no other refills are due, in the near future, with this provider at this time: Yes The last office visit in the department: 04/29/2024 Does the patient have a future office visit with this provider/department: Yes 05/06 Requested Prescriptions Pending Prescriptions Disp Refills oxyCODONE-acetaminophen (PERCOCET) 5-325 mg tablet 28 tablet 0 Sig: Take 1 tablet by mouth every 6 hours as needed for pain for up to 7 days. Pt states that the Tramadol and Tylenol are not working. She got her crutch stuck and fell forward and since that, pain is worse. Nola Alvarado MA May 01, 2024 1:[address] [facility] 04-30-2024 History of Present illness Narrative Images from the original note were not included. FOLLOW UP PODIATRIC OFFICE VISIT Chief Complaint: This 33 year old who presents for follow up:left calcaneal fracture. Patient presents to clinic for follow-up left calcaneal fracture Was placed in huffman compression with posterior splint. She removed the first day after application because she couldn't shower with the splint on She continues to have pain to left foot but is improving with percocet. She is taking two percocets when waking up in the morning and then one every 6 hours. Was prescribed one every 6 hours. She is here with new xray Would like to be placed in cast. Presents using crutches. PAIN EVALUATION 04/24/2024 1318 Pain Level: 8 Pain Location: Foot-Left Description: Aching;Radiating;Shooting;Sore;Sti ffness;Throbbing Duration Amount of Time: 24 Duration Units: Hours Frequency: Continuous Intervention/Comfort measure: Medication;Relaxation;Cold No results found for: HBA1C PCP: Michelle Wilcox MD PAST MEDICAL HISTORY Diagnosis Date Acid reflux Arthritis LEFT WRIST Dysthymic disorder 03/2009 Depression (non-psychotic) Endometriosis Current Outpatient Medications Medication Sig oxyCODONE-acetaminophen (PERCOCET) 5-325 mg tablet Take 1 tablet by mouth every 6 hours as needed for pain for up to 7 days. ibuprofen (MOTRIN) 800 mg tablet Take 1 tablet by mouth every 8 hours as needed for pain. Take with food. traMADol (ULTRAM) 50 mg tablet Take 1 tablet by mouth every 8 hours as needed for pain for up to 7 days. omeprazole (PRILOSEC) 40 mg capsule Take 1 capsule by mouth daily before breakfast. 1/2 hr before meal. (Patient not taking: Reported on 04/21/2024) tamsulosin (FLOMAX) 0.4 mg Take 1 capsule by mouth daily at bedtime. (Patient not taking: Reported on 04/21/2024) ondansetron orally disintegrating (ZOFRAN ODT) 4 mg disintegrating tablet Take 1 tablet by mouth every 6 hours as needed for nausea/vomiting. (Patient not taking: Reported on 04/24/2024) sucralfate (CARAFATE) 1 gram tablet Take 1 tablet by mouth four times daily. (Patient not taking: Reported on 04/24/2024) DULoxetine (CYMBALTA) 30 mg capsule Take 1 capsule by mouth once daily. (Patient not taking: Reported on 04/21/2024) ALBUTEROL SULFATE INHALATION Inhale as instructed. (Patient not taking: Reported on 04/24/2024) No current facility-administered medications for this visit. ALLERGIES No Known Allergies PAST SURGICAL HISTORY Procedure Laterality Date COLONOSCOPY FLX DX W/COLLJ SPEC WHEN PFRMD 03/01/16 Colonoscopy with mac DILATION & CURETTAGE DX&/THER NONOBSTETRIC Dilation & curettageX2 EGD TRANSORAL BIOPSY SINGLE/MULTIPLE 12/12/2016 gastritis EXT HYSTERECTOMY,W/PARTIAL VAGINECTO IMPLANON LAP APPENDICOSTOMY 08/04/2019 LAPS ABD PRTM&OMENTUM DX W/WO SPEC BR/WA SPX 12/23/2015 Laparoscopy OOPHORECTOMY PARTIAL OR TOTAL Right 08/04/2019 PAST SURGICAL HISTORY OF oophorectomy/ salpingectomy left PAST SURGICAL HISTORY OF 02/2016 debridment left thumb staph. TONSILLECTOMY PRIMARY/SECONDARY <AGE 13 Tonsillectomy US KIDNEY 07/05/2015 normal Physical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 until testing is done. Provider wants to make sure there isn't anything seriously wrong with patient. Patient states that she cannot go to hospital. Alessia Huffman RN documented in this encounter [facility] 02-22-2024 History of Present illness Narrative CC: Patient presents with: Recheck: 1 week follow up, abdominal pain HPI Lanie Lisa is a 33 year old female who presents today for follow up on multiple concerns including abdominal pain. Went to [place] and admitted on 01/29-02/02 and diagnosed with pyelonephritis. Has been seen twice since that visit by other provider. Last visit with [facility] SINCLAIR Described as a real bad severe burning and stabbing pain in her stomach, without radiation. Pain just started today- was feeling fine until about an hour ago, became 8-9/10 on the pain scale. Has never had this pain previously. Was so severe that it caused her to vomit. States she's not sure if she ate something that flared it up. Still has her GB. Had endometriosis for which she has had several laparoscopic surgeries. Last c-scope was by Dr. 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 Has had diarrhea going on since she left the hospital. My hot flashes have been really bad lately. Eats a lot of spicy foods. States that sometimes she feels as though she's having a heart attack. Started on carafate and had full workup. Workup showing slightly elevated ALT, elevated platelets, slightly elevated amylase. US showing possible left 4mm kidney stone. Patient presents today with not much improvement except epigastric pain has resolved with the carafate. No further diarrhea and bowels are back to normal. Had RLQ pain yesterday that was sharp and achy but no longer present today. Does still have her appendix. Left flank pain continuing that radiates to left side of abdomen. Pain can get very severe and sharp without warning but small amount of pain is always present now. Denies fever, vomiting, chest pain, shortness of breath, edema, cough, wheezing, palpitations, difficulty urinating, pain with urinating, or blood in urine. Has upcoming appointment for possible scope with General Surgery. REVIEW OF SYSTEMS See HPI PAST MEDICAL HISTORY Diagnosis Date Acid reflux Arthritis LEFT WRIST Dysthymic disorder 03/2009 Depression (non-psychotic) Endometriosis PAST SURGICAL HISTORY Procedure Laterality Date COLONOSCOPY FLX DX W/COLLJ SPEC WHEN PFRMD 03/01/16 Colonoscopy with mac DILATION & CURETTAGE DX&/THER NONOBSTETRIC Dilation & curettageX2 EGD TRANSORAL BIOPSY SINGLE/MULTIPLE 12/12/2016 gastritis EXT HYSTERECTOMY,W/PARTIAL VAGINECTO Dr.Seals HAWKINSN LAP APPENDICOSTOMY 08/04/2019 LAPS ABD PRTM&OMENTUM DX W/WO SPEC BR/WA SPX 12/23/2015 Laparoscopy OOPHORECTOMY PARTIAL OR TOTAL Right 08/04/2019 PAST SURGICAL HISTORY OF oophorectomy/ salpingectomy left PAST SURGICAL HISTORY OF 02/2016 debridment left thumb staph. TONSILLECTOMY PRIMARY/SECONDARY <AGE 13 Tonsillectomy US KIDNEY 07/05/2015 normal ALLERGIES Patient has no known allergies. MEDICATIONS sucralfate (CARAFATE) 1 gram tablet Take 1 tablet by mouth four times daily. DULoxetine (CYMBALTA) 30 mg capsule Take 1 capsule by mouth once daily. ALBUTEROL SULFATE INHALATION Inhale as instructed. FAMILY HISTORY Problem Relation Age of Onset Cancer Mother OVARIAN CANCER Osteoporosis Mother other (Other) Mother Crohn's disease Thyroid Father Heart Maternal Grandmother Diabetes Paternal Grandmother Diabetes Paternal Grandfather Cancer Maternal Aunt OVARIAN CANCER Social History Tobacco Use Smoking status: Former Years: 10 Types: Cigarettes Smokeless tobacco: Never Tobacco comments: approx 2 cig per day Vaping Use Vaping Use: current everyday user Substances: Nicotine, Flavoring Devices: Refillable tank Substance Use Topics Alcohol use: Yes Comment: OCCASIONALLY,BUT NOT WHILE Drug use: No PHYSICAL EXAM BP 98/60 Pulse 80 Resp 16 Wt 42.2 kg (93 lb) LMP 01/09/2017 SpO2 97% BMI 16.47 kg/m General Appearance: well appearing, in no acute distress, alert Skin: Skin color, texture, turgor normal for age; Eyes: conjunctiva pink and moist, no icterus, sclera white, non-injected Lungs: Lungs clear to auscultation. No wheezing, rhonchi, rales. Heart: RRR without murmur, gallop, or rubs. No ectopy Abdomen: Abdomen soft, Bowel sounds normal. No masses, organomegaly Positive for left sided CVA tenderness, grimacing with tenderness to epigastric region and left side of abdomen. No guarding, rigidity, or rebound tenderness. Health maintenance reviewed with patient: DTaP,Tdap,Td Vaccine(5 - Tdap) due on 2002 Hepatitis B Vaccine(1 of 3 - 19+ 3-dose series) Never done Pap Testing Never done HPV Testing Never done Covid-19 Vaccine(2022- season) due on 07/13/2023 Influenza Vaccine(Season Ended) due on 07/13/2024 Hepatitis C Screening Completed HIV Screening Completed HPV Vaccine Aged Out DATA REVIEWED: Most recent labs and imaging results. ASSESSMENT/PLAN: 1. Left flank pain - ICD9: 789.09, ICD10: R10.9 (primary diagnosis) - US showing possible left sided kidney stone but was completed 10 days ago. With recent pyelonephritis and severe pain she needs a STAT workup. Does not want to go to ER as she is a single mom so has to work. Also requesting narcotic pain medication. Explained to patient my concern that I do not want to mask the symptoms and need the STAT CT and blood work completed so we can verify this is not an emergent situation. Once these are resulted I can order something. For any worsening pain, fever, vomiting, firmness of abdomen, or any other concerns, she needs to go to ER. - TAMSULOSIN 0.4 MG CAPSULE - CT FLANK WO IVCON - UA DIP, URINE (POC) - COMPLETE BLOOD COUNT AND DIFFERENTIAL - COMPREHENSIVE METABOLIC PANEL 2. Abnormal US (ultrasound) of abdomen - ICD9: 793.6, ICD10: R93.5 As above - CT FLANK WO IVCON 3. Epigastric pain - ICD9: 789.06, ICD10: R10.13 See #1 - still with the tenderness even though she thought the pain has resolved. Possible gastritis versus ulcer. Will add a PPI and patient to keep upcoming appointment with general surgery. As the amylase was slightly elevated, I will repeat this as well. - OMEPRAZOLE 40 MG CAPSULE,DELAYED RELEASE - LIPASE - AMYLASE 4. Elevated amylase - ICD9: 790.5, ICD10: R74.8 As above - LIPASE - AMYLASE 5. Nausea - ICD9: 787.02, ICD10: R11.0 See #1 - ONDANSETRON 4 MG DISINTEGRATING TABLET Prescription instructions reviewed with patient as applicable. Potential red flag symptoms discussed with the patient. Reviewed appropriate action plan to take if red flag symptoms occur. Patient agreeable to treatment plan. Divina Mejias APRN.CNP documented in this encounter [facility] 02-13-2024 Miscellaneous Notes Patient notified and verbalized understanding. [place] LPN I sent in short course of pain meds again but I really think she needs further workup at another ED- like [facility] or [place]? I wish we had more time but they can also handle things in a more time sensitive fashion. Cezar Romo PA-C Pt called back and she wanted you to know pain in right side into back and the same left side into the back. Same feeling pain. Left side stabbing pain constant starts out at a 3 or 4 and out of nowhere it will hit hard and takes her breath away and goes to an 8 or 9 and brings her to tears. Left side pat is wondering if she has a kidney stone. Ride side pain is almost bearable. Pt concerned she may have an infection. Pain at times is making her nauseated and to the point some times she has the feeling she needs to vomit but does not.l Pt reports her mom had the same symptoms and was dx with crohn's disease. Please advise pt back. She reports can not keep missing work. Needs to get to the bottom of what's going on. Nola Hein LPN left message for patient to call office back and speak with triage nurse. We are needing more information. [place] LPN Can you find out more info for me- what pain is this exactly? Is it the same type? If she keeps having severe pain, we may need to send her back to the hospital as something could be really wrong. Please have her describe in depth, rate the pain -- I will be gone in two days and us just refilling pain meds over and over is just putting a bandaid on the problem. If she's still having that much pain, we should at least set her up for a video visit (any provider is fine). Cezar documented in this encounter [facility] 02-12-2024 Note HNO ID: [id number] Author: MARIAH JAY RT(R) Service: ? Author Type: Technologist Type: Progress Notes Filed: 02/12/2024 11:29 Note Text: Radiology Service Progress Note PATIENT NAME: Lanie Lisa DATE OF SERVICE: February 12, 2024 TIME: 11:29 AM PATIENT IDENTITY VERIFICATION COMPLETED USING TWO (2) IDENTIFIERS: Name and Date of confirmed by patient verbally. FALL SCREENING: Has the patient had 2 falls in the last year or 1 fall with injury or currently using an Ambulatory Assistive Device (Walker, Cane, Wheelchair, Crutches, etc.)? No PATIENT GENDER DATA: Female. status: : No status: NO. PATIENT RELEVANT IMPLANT DATA REVIEWED: Yes PATIENT PRESENTS WITH AN IMPLANTABLE OR ATTACHED INDUSTRIAL MAINTENANCE REPAIRER: No RADIOLOGY DEPARTMENT: Ultrasound PERIPHERAL IV DATA: Not applicable SIGNED BY: Mariah Jay RDMS, RVT February 12, 2024 11:29 AM [facility] 02-12-2024 History of Present illness Narrative Radiology Service Progress Note PATIENT NAME: Lanie Lisa DATE OF SERVICE: February 12, 2024 TIME: 11:29 AM PATIENT IDENTITY VERIFICATION COMPLETED USING TWO (2) IDENTIFIERS: Name and Date of confirmed by patient verbally. FALL SCREENING: Has the patient had 2 falls in the last year or 1 fall with injury or currently using an Ambulatory Assistive Device (Walker, Cane, Wheelchair, Crutches, etc.)? No PATIENT GENDER DATA: Female. status: : No status: NO. PATIENT RELEVANT IMPLANT DATA REVIEWED: Yes PATIENT PRESENTS WITH AN IMPLANTABLE OR ATTACHED INDUSTRIAL MAINTENANCE REPAIRER: No RADIOLOGY DEPARTMENT: Ultrasound PERIPHERAL IV DATA: Not applicable SIGNED BY: Mariah Jay RDMS, RVT February 12, 2024 11:29 AM documented in this encounter [facility] 02-11-2024 History of Present illness Narrative Radiology Service Progress Note PATIENT NAME: Lanie Lisa DATE OF SERVICE: February 11, 2024 TIME: 2:55 PM PATIENT IDENTITY VERIFICATION COMPLETED USING TWO (2) IDENTIFIERS: Name and Date of confirmed by patient verbally. FALL SCREENING: Has the patient had 2 falls in the last year or 1 fall with injury or currently using an Ambulatory Assistive Device (Walker, Cane, Wheelchair, Crutches, etc.)? No PATIENT GENDER DATA: Female. status: : No status: NO. PATIENT RELEVANT IMPLANT DATA REVIEWED: Yes PATIENT PRESENTS WITH AN IMPLANTABLE OR ATTACHED INDUSTRIAL MAINTENANCE REPAIRER: No RADIOLOGY DEPARTMENT: General X-ray: Exam(s) Completed: Chest X-Ray Abdomen X-Ray: Abdomen with Upright PERIPHERAL IV DATA: Not applicable SIGNED BY: RT Rafal(R) February 11, 2024 2:55 PM documented in this encounter [facility] 02-11-2024 History of Present illness Narrative CC: Patient presents with: Follow Up: kidney and abdomen pain HPI Lanie Lisa is a 33 year old female who presents today for continued discomfort - R flank pain- started to bother her again today. Took the norco which helped to some degree. Described as a real bad severe burning and stabbing pain in her stomach, without radiation. Pain just started today- was feeling fine until about an hour ago, became 8-9/10 on the pain scale. Has never had this pain previously. Was so severe that it caused her to vomit. States she's not sure if she ate something that flared it up. Still has her GB. Had endometriosis for which she has had several laparoscopic surgeries. Last c-scope was by Dr. 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 Has had diarrhea going on since she left the hospital. My hot flashes have been really bad lately. Eats a lot of spicy foods. States that sometimes she feels as though she's having a heart attack. REVIEW OF SYSTEMS See HPI All other systems negative. PAST MEDICAL HISTORY Diagnosis Date Acid reflux Arthritis LEFT WRIST Dysthymic disorder 03/2009 Depression (non-psychotic) Endometriosis PAST SURGICAL HISTORY Procedure Laterality Date COLONOSCOPY FLX DX W/COLLJ SPEC WHEN PFRMD 03/01/16 Colonoscopy with mac DILATION & CURETTAGE DX&/THER NONOBSTETRIC Dilation & curettageX2 EGD TRANSORAL BIOPSY SINGLE/MULTIPLE 12/12/2016 gastritis EXT HYSTERECTOMY,W/PARTIAL VAGINECTO Dr.Seals HAWKINSN LAP APPENDICOSTOMY 08/04/2019 LAPS ABD PRTM&OMENTUM DX W/WO SPEC BR/WA SPX 12/23/2015 Laparoscopy OOPHORECTOMY PARTIAL OR TOTAL Right 08/04/2019 PAST SURGICAL HISTORY OF oophorectomy/ salpingectomy left PAST SURGICAL HISTORY OF 02/2016 debridment left thumb staph. TONSILLECTOMY PRIMARY/SECONDARY <AGE 13 Tonsillectomy US KIDNEY 07/05/2015 normal ALLERGIES Patient has no known allergies. MEDICATIONS cefdinir (OMNICEF) 300 mg capsule Take 1 capsule by mouth two times a day for 10 days. HYDROcodone-acetaminophen (NORCO) 5-325 mg per tablet Take 1 tablet by mouth every 8 hours as needed for pain for up to 7 days. cyclobenzaprine (FLEXERIL) 10 mg tablet Take 1 tablet by mouth three times a day as needed for muscle spasm. DULoxetine (CYMBALTA) 30 mg capsule Take 1 capsule by mouth once daily. celecoxib (CELEBREX) 200 mg capsule Take 1 capsule by mouth once daily. ALBUTEROL SULFATE INHALATION Inhale as instructed. FAMILY HISTORY Problem Relation Age of Onset Cancer Mother OVARIAN CANCER Osteoporosis Mother other (Other) Mother Crohn's disease Thyroid Father Heart Maternal Grandmother Diabetes Paternal Grandmother Diabetes Paternal Grandfather Cancer Maternal Aunt OVARIAN CANCER Social History Tobacco Use Smoking status: Former Years: 10 Types: Cigarettes Smokeless tobacco: Never Tobacco comments: approx 2 cig per day Vaping Use Vaping Use: current everyday user Substances: Nicotine, Flavoring Devices: Malwarebytes tank Substance Use Topics Alcohol use: Yes Comment: OCCASIONALLY,BUT NOT WHILE Drug use: No PHYSICAL EXAM BP 116/60 (BP Site: Right Arm, BP Position: Sitting, BP Cuff Size: Regular Adult) Pulse 80 Temp 36.6 C (97.9 F) Resp 12 Ht 160 cm (5' 3) Wt 42.2 kg (93 lb) LMP 01/09/2017 SpO2 98% BMI 16.47 kg/m General Appearance: well appearing, in no acute distress but appears to be uncomfortable, alert, very thin body habitus Pysch: tearful, frustrated Skin: Skin color, texture, turgor normal for age; Head: normocephalic, atraumatic Lymph nodes: No cervical lymphadenopathy Lungs: Lungs clear to auscultation. No wheezing, rhonchi, rales. Heart: RRR without murmur, gallop, or rubs. No ectopy Abdomen: Abdomen soft, no tenderness to palpation. Bowel sounds normal. No masses, organomegaly No rigidity, guarding, or other evidence of acute abdomen demonstrated on exam Extremities: No gross deformities, significant edema, skin discoloration, clubbing or cyanosis. Neurological: Gait normal. No focal neurological deficits. Sensation grossly intact. ASSESSMENT/PLAN: 1. Epigastric burning sensation - ICD9: 789.06, ICD10: R10.13 (primary diagnosis) Differential Diagnosis includes PUD, Gastritis, IBD (hx of focal colitis), Gall bladder colic/cholelithiasis, Mesenteric ischemia, and pancreatitis - Begin treatment with Carafate 4 times daily - Labs of CBC with Diff, CMP, H pylori Antibodies, Amylase, Lipase, Stool for C diff, Stool studies, and Urine analysis - Work up with RUQ ultrasound - XR ABDOMEN 2V ROUTINE SUPINE W UPRIGHT/DECUB/CTL - XR CHEST 2V FRONTAL/LAT - CBC + DIFF - COMP METABOLIC PANEL - AMYLASE BLD - LIPASE BLD - URINALYSIS, WITH MICROSCOPIC - XR CHEST 2V FRONTAL/LAT - SUCRALFATE 1 GRAM TABLET - CONSULT TO GENERAL SURGERY - URINE CULTURE - C. DIFFICILE PCR - CRYPTOSPORIDIUM AND GIARDIA ANTIGENS BY EIA - FECAL LACTOFERRIN/LEUKOCYTES - SEROTONIN BLD - US ABD RIGHT UPPER QUADRANT 2. Abnormal finding of kidney - ICD9: 593.9, ICD10: R39.[address] of abdomen/pelvis, however benign findings noted on more recently obtained renal ultrasound - XR ABDOMEN 2V ROUTINE SUPINE W UPRIGHT/DECUB/CTL - CBC + DIFF - COMP METABOLIC PANEL - URINALYSIS, WITH MICROSCOPIC - XR CHEST 2V FRONTAL/LAT - URINE CULTURE - US ABD RIGHT UPPER QUADRANT 3. Hot flashes - ICD9: 782.62, ICD10: R23.2 Will check additional testing per below - XR CHEST 2V FRONTAL/LAT - FECAL LACTOFERRIN/LEUKOCYTES - SEROTONIN BLD - US ABD RIGHT UPPER QUADRANT 4. History of colitis - ICD9: V12.79, ICD10: Z87.19 History of focal colitis according to colonoscopy report from 06/02-will check stool testing as well per below - ENTERIC BACTERIAL PANEL BY PCR - H PYLORI AG BY EIA,STOOL - C. DIFFICILE PCR - CRYPTOSPORIDIUM AND GIARDIA ANTIGENS BY EIA - FECAL LACTOFERRIN/LEUKOCYTES - SEROTONIN BLD 5. Diarrhea, unspecified type - ICD9: 787.91, ICD10: R19.7 - ENTERIC BACTERIAL PANEL BY PCR - H PYLORI AG BY EIA,STOOL - C. DIFFICILE PCR - CRYPTOSPORIDIUM AND GIARDIA ANTIGENS BY EIA - FECAL LACTOFERRIN/LEUKOCYTES - SEROTONIN BLD 6. Chest pain, unspecified type - ICD9: 786.50, ICD10: R07.9 Imaging per below to further evaluate - XR CHEST 2V FRONTAL/LAT - US ABD RIGHT UPPER QUADRANT Follow-up pending results, close follow-up in 1 week Prescription instructions reviewed with patient as applicable. Potential red flag symptoms discussed with the patient. Reviewed appropriate action plan to take if red flag symptoms occur. Patient agreeable to treatment plan. Cezar Romo PA-C documented in this encounter [facility] 02-05-2024 Note HNO ID: [id number] Author: MARIAH JAY RT(R) Service: ? Author Type: Technologist Type: Progress Notes Filed: 02/05/2024 17:05 Note Text: Radiology Service Progress Note PATIENT NAME: Lanie Lisa DATE OF SERVICE: February 05, 2024 TIME: 5:04 PM PATIENT IDENTITY VERIFICATION COMPLETED USING TWO (2) IDENTIFIERS: Name and Date of confirmed by patient verbally. FALL SCREENING: Has the patient had 2 falls in the last year or 1 fall with injury or currently using an Ambulatory Assistive Device (Walker, Cane, Wheelchair, Crutches, etc.)? No PATIENT GENDER DATA: Female. status: : No status: NO. PATIENT RELEVANT IMPLANT DATA REVIEWED: Not Applicable PATIENT PRESENTS WITH AN IMPLANTABLE OR ATTACHED INDUSTRIAL MAINTENANCE REPAIRER: No RADIOLOGY DEPARTMENT: Ultrasound PERIPHERAL IV DATA: Not applicable SIGNED BY: Mariah Jay RDMS, RVT February 05, 2024 5:04 PM [facility] 02-05-2024 History of Present illness Narrative Radiology Service Progress Note PATIENT NAME: Lanie Lisa DATE OF SERVICE: February 05, 2024 TIME: 5:04 PM PATIENT IDENTITY VERIFICATION COMPLETED USING TWO (2) IDENTIFIERS: Name and Date of confirmed by patient verbally. FALL SCREENING: Has the patient had 2 falls in the last year or 1 fall with injury or currently using an Ambulatory Assistive Device (Walker, Cane, Wheelchair, Crutches, etc.)? No PATIENT GENDER DATA: Female. status: : No status: NO. PATIENT RELEVANT IMPLANT DATA REVIEWED: Not Applicable PATIENT PRESENTS WITH AN IMPLANTABLE OR ATTACHED INDUSTRIAL MAINTENANCE REPAIRER: No RADIOLOGY DEPARTMENT: Ultrasound PERIPHERAL IV DATA: Not applicable SIGNED BY: Mariah Jay RDMS, PEARLT February 05, 2024 5:04 PM documented in this encounter [facility] 02-05-2024 Instructions Cezar Romo PA-C - 02/05/2024 2:20 PM EDT Can alternate between Ibuprofen (800 MG) and Tylenol (1000) mg every 3-4 hours Max dosing of Ibuprofen 2400 mg in 24 hour period Max dosing of Tylenol is 4000 mg in 24 hour period documented in this encounter [facility] 02-05-2024 History of Present illness Narrative CC: Patient presents with: Follow Up: 2 week follow up -left arm was in hospital for UTI and kidney infection HPI Lanie Lisa is a 33 year old female who presents today for hospital follow-up. Facility: [facility] Date of visit: 01/29/2023- 02/02/2024 Reason for visit: Right-sided flank pain fevers Hospital course: Patient was admitted through the ED on 01/30/2024 with a complaint of fever/chills and body aches, as well as right-sided flank pain. Patient was febrile on admission and hypotensive through this but resolved with administration of IV fluids. Labs done and showed elevated white count of 15.3, urinalysis revealed 2+ bacteria. Fever resolved and white count also trended down. CT of the abdomen and pelvis showed multiple peripheral base hypodensities involving the right kidney as described with multiple areas of focal lobar nephronia versus possible infarcts. Patient was admitted and managed for pyelonephritis with concerns for possible infarcts of the kidney. Nephrology was consulted and felt like this was likely due to the kidney infection and recommended medical management. Patient was treated with IV Zosyn. Blood and urine cultures were obtained, blood urine cultures negative and urine cultures grew out E. coli. Patient was discharged home on 02/01 on p.o. cefdinir 300 mg twice daily for 10 days. She was advised to follow-up with her primary care doctor within 1 to 2 weeks. She was also given a prescription for p.o. oxycodone 5 mg every 4 hours as needed for total of 18 tablets for 3 days. Diagnosis: Acute right pyelonephritis Current symptoms: C/o continued R flank pain and abdominal swelling/ bloating REVIEW OF SYSTEMS : Negative for dysuria, frequency, and hematuria See HPI PAST MEDICAL HISTORY Diagnosis Date Acid reflux Arthritis LEFT WRIST Dysthymic disorder 03/2009 Depression (non-psychotic) Endometriosis PAST SURGICAL HISTORY Procedure Laterality Date COLONOSCOPY FLX DX W/COLLJ SPEC WHEN PFRMD 03/01/16 Colonoscopy with mac DILATION & CURETTAGE DX&/THER NONOBSTETRIC Dilation & curettageX2 EGD TRANSORAL BIOPSY SINGLE/MULTIPLE 12/12/2016 gastritis EXT HYSTERECTOMY,W/PARTIAL VAGINECTO IMPLANON LAP APPENDICOSTOMY 08/04/2019 LAPS ABD PRTM&OMENTUM DX W/WO SPEC BR/WA SPX 12/23/2015 Laparoscopy OOPHORECTOMY PARTIAL OR TOTAL Right 08/04/2019 PAST SURGICAL HISTORY OF oophorectomy/ salpingectomy left PAST SURGICAL HISTORY OF 02/2016 debridment left thumb staph. TONSILLECTOMY PRIMARY/SECONDARY <AGE 13 Tonsillectomy US KIDNEY 07/05/2015 normal ALLERGIES Patient has no known allergies. MEDICATIONS cyclobenzaprine (FLEXERIL) 10 mg tablet Take 1 tablet by mouth three times a day as needed for muscle spasm. DULoxetine (CYMBALTA) 30 mg capsule Take 1 capsule by mouth once daily. celecoxib (CELEBREX) 200 mg capsule Take 1 capsule by mouth once daily. ALBUTEROL SULFATE INHALATION Inhale as instructed. FAMILY HISTORY Problem Relation Age of Onset Cancer Mother OVARIAN CANCER Osteoporosis Mother other (Other) Mother Crohn's disease Thyroid Father Heart Maternal Grandmother Diabetes Paternal Grandmother Diabetes Paternal Grandfather Cancer Maternal Aunt OVARIAN CANCER Social History Tobacco Use Smoking status: Former Years: 10 Types: Cigarettes Smokeless tobacco: Never Tobacco comments: approx 2 cig per day Vaping Use Vaping Use: current everyday user Substances: Nicotine, Flavoring Devices: Lien Enforcement Substance Use Topics Alcohol use: Yes Comment: OCCASIONALLY,BUT NOT WHILE Drug use: No PHYSICAL EXAM BP 80/50 (BP Site: Left Arm, BP Position: Sitting, BP Cuff Size: Regular Adult) Pulse 85 Temp 37.3 C (99.1 F) Resp 12 Ht 160 cm (5' 3) Wt 41.3 kg (91 lb) LMP 01/09/2017 SpO2 99% BMI 16.12 kg/m General Appearance: well appearing, in no acute distress, but clearly in discomfort Pysch: Tearful, discouraged mood Skin: Skin color, texture, turgor normal for age Head: normocephalic, atraumatic Lymph nodes: No cervical lymphadenopathy Lungs: Lungs clear to auscultation. No wheezing, rhonchi, rales. Heart: RRR without murmur, gallop, or rubs. No ectopy Abdomen: Abdomen soft, no tenderness to palpation. Mild distention noted. Bowel sounds normal. No masses, organomegaly. Severe CVA tenderness right side with very minimal pressure. No rigidity, guarding, or other evidence of acute abdomen demonstrated on exam Extremities: No gross deformities, significant edema, skin discoloration, clubbing or cyanosis. Neurological: Gait normal. No focal neurological deficits. Sensation grossly intact. DTaP,Tdap,Td Vaccine(5 - Tdap) due on 2002 Hepatitis B Vaccine(1 of 3 - 19+ 3-dose series) Never done Pap Testing Never done HPV Testing Never done Influenza Vaccine(1) due on 07/13/2023 Covid-19 Vaccine(3 - 2022-24 season) due on 07/13/2023 Hepatitis C Screening Completed HIV Screening Completed HPV Vaccine Aged Out DATA REVIEWED: Most recent labs and imaging results. Outside chart from [facility] reviewed. ASSESSMENT/PLAN: 1. Abnormal finding of kidney - ICD9: 593.9, ICD10: R39.9 (primary diagnosis) Reached out to both urology, Victor Hugo Calvo PA-C as well as nephrology, Dr. Coates for their opinions regarding questionable CT read- suggestive of a multi lobar nephronia versus possible infarction. The right kidney is enlarged. Stat renal ultrasound ordered as discussed below. Refilled short course of [place] due to degree of pain patient is experiencing at the present. PDMP website checked and validated. All prescriptions have been APPROPRIATELY filled. No suspicious activity was identified. 02/05/2024 by Cezar Romo PA-C - US KIDNEY/BLADDER - URINE CULTURE - HYDROCODONE 5 MG-ACETAMINOPHEN 325 MG TABLET 2. Pyelonephritis of right kidney - ICD9: 590.80, ICD10: N12 Concerning due to pain out of proportion on exam. Dr. Coates suggested renal ultrasound to assess for fluid collection/abscess. Currently on cefdinir, as Rx'd at discharge from [facility]. Urine dip in office revealed trace blood. Will send out for culture once again, to make sure treatment does not need adjusted - CEFDINIR 300 MG CAPSULE - US KIDNEY/BLADDER - TSH BLD - T4 FREE/FREE THYROX - URINE CULTURE - HYDROCODONE 5 MG-ACETAMINOPHEN 325 MG TABLET 3. Abnormal TSH - ICD9: 790.6, ICD10: R79.89 As noted during hospitalization-will obtain updated TSH and T4 - TSH BLD - T4 FREE/FREE THYROX Recheck Sunday abnormal renal findings on CT Prescription instructions reviewed with patient as applicable. Potential red flag symptoms discussed with the patient. Reviewed appropriate action plan to take if red flag symptoms occur. Patient agreeable to treatment plan. Cezar Romo PA-C documented in this encounter [facility] 02-02-2024 Discharge summary Note Date/Time February 02, 2024 10:41am [facility] Medical Records Department [facility] [place] [address] Instructions for Home/Discharge Instructions 02/02/24 1041 MR#: [id number] Acct: [id number] Name: LANIE LISA Rep #:[id number] : 1990 33 From: Maame Bergman MD PCP: Dr. Michelle Wilcox MD Status:ADM I N Discharge Instructions Diet Discharge Diet: Low fat / Low cholesterol Activity Discharge Activity: Return to Normal Activity Weight Bearing Status: Full weight bearing Dressing / Incision Call your doctor if you observe: Fever of 101 or Higher, Swelling in the ankles,Increased palpitations (irregular heartbeat) and Uncontrolled pain Follow Up Care Test Results: Test results from this visit will be discussed in further detail at your follow-up appointment, if applicable. Discharge Plan Admission Admit Date/Time: 01/30/24 14:19 Primary Reason for Your Visit: acute riht pyelonephritis Attending Provider: Maame Bergman Primary Care Provider: Michelle Wilcox Consulting Providers: Augustine Blair; Demetrius Ibanez Instructions Patient Instructions: Pyelonephritis Ch Dc, ED Pyelonephritis, Female (Adult) Discharge Orders/Prescriptions Prescriptions: New cefdinir 300 mg capsule 300 mg PO BID Qty: 20 0RF Continued albuterol sulfate 90 mcg/actuation Hfa Aerosol Inhaler 2 puff INHALATION Q6H PRN (Reason: ASTHMA) celecoxib 200 mg capsule 200 mg PO DAILY cyclobenzaprine 10 mg tablet 10 mg PO TID PRN (Reason: MUSCLE SPASMS ) duloxetine 30 mg capsule,delayed release(DR/EC) 30 mg PO DAILY benzonatate 200 mg capsule 200 mg PO TID PRN (Reason: COUGHING ) Patient Comments: PT STATES THIS IS A NEWER RX THAT THEY HAVENT TAKEN YET ( OF 01/30/24) Referrals / Follow Up: Michelle Wilcox MD [Primary Care Provider] - Within 1 Week Disposition Disposition (needs filled in before D/C Order can be placed): Home, Self Care 02/02/24 1041<Electronically signed by Maame Bergman MD>Maame Bergman MD CC: Dr. Demetrius Ibanez DO; Dr. Michelle Wilcox MD; Dr. Augustine Blair MD ~ Signed [facility] Work Phone: [phone]) 911-445803-22-2024 Progress note Author [facility] February 01, 2024 3:40pm Note Date/Time February 01, 2024 12: 29pm [facility] Medical Records Department [address] [place] [address] Progress Note 02/01/24 1227 MR#: [id number] Acct: [id number] Name: LANIE LISA Rep #:[id number] : 1990 33 From: Maame Bergman MD PCP: Dr. Michelle Wilcox MD Status:ADM I N Location: [place] [address] Subjective Subjective Patient seen and examined. She still complained of right flank pain. She had no other complaints and review of systems otherwise negative. Urine culture growing E. coli. Objective Data Objective Data Vital Signs: Vital Signs Temp Pulse Resp BP Pulse Ox O2 Del Method 97.4 F L 69 18 101/63 100 Room Air 02/01/24 09:50 02/01/24 09:50 02/01/24 09:50 02/01/24 09:50 02/01/24 09:50 02/01/24 09:50 Oxygen Delivery Method Room Air Weight: 100 lb 4.965 oz Body Mass Index (BMI) 17.7 Intake & Output: Intake and Output for Last 24 Hours 01/30/24 01/31/24 02/01/24 23:59 23:59 23:59 Intake Total 2308.33 / 3158.33 2260 / 2260 930 / 930 Output Total 0 / 0 Balance 2308.33 / 3158.33 2260 / 2260 930 / 930 Lab / Micro Data 02/01/24 05:40 02/01/24 05:40 Labs: Laboratory Results - last 24 hr 02/01/24 05:40: WBC 9.4, RBC 3.05 L, Hgb 9.3 L, Hct 28.2 L, MCV 92.5, MCH 30.5, MCHC 33.0, RDW Std Deviation 43.5, RDW Coeff of Tru 12.8, Plt Count 205, MPV 9.5, Immature Gran % (Auto) 0.400, Neut % (Auto) 76.4 H, Lymph % (Auto) 10.6 L, [place] % (Auto) 11.3 H, Eos % (Auto) 1.0, Baso % (Auto) 0.3, Absolute Neuts (auto)7.2, Absolute Lymphs (auto) 1.00, Nucleated RBC % 0, Sodium 138, Potassium 3.7, Chloride 105, Carbon Dioxide 27.0, Anion Gap 6, BUN 8, Creatinine 0.60, Estim Creat Clear Calc 96.69, Est GFR (MDRD) Af Amer 147, Est GFR (MDRD) Non-Af 122, BUN/Creatinine Ratio 13.2, Glucose 91, Calcium 8.4 L, Vancomycin Trough 6.5 Micro: Microbiology 01/30/24 11:12 Urine, Catheterized Urine Culture - Final Presumptive E. coli 01/30/24 11:12 Mucosa - Nose SARS-CoV-2, Influenza & RSV (PCR) - Final Physical Exam Const alert, oriented x3, no apparent distress and well nourished General Appearance: cooperative HEENT normocephalic, head/scalp atraumatic, hearing grossly normal bilaterally, nasal mucous membranes and turbinates normal, moist oral mucous membranes and oropharynx normal Eyes PERRL, EOMs intact bilaterally and conjunctivae normal Neck full ROM, no lymphadenopathy, supple and no JVD Lymph Lymphatic: no lymphadenopathy noted and no lymphedema noted Chest inspection of chest normal Resp normal respiratory effort, normal air movement, no use of accessory muscles and clear to auscultation bilaterally Cardio regular rate, regular rhythm, S1 normal heart sound, S2 normal heart sound, no murmurs and peripheral pulses 2+ throughout GI normal to inspection, nondistended, normoactive bowel sounds, soft to palpation,non-tender and non-distended GI Narrative: still has right sided flank pain Bladder / Kidney Exam: bladder normal to palpation and CVA tenderness right Back/Spine normal ROM Extremity normal to inspection, full ROM, normal capillary refill, no clubbing, cyanosis or edema, no calf tenderness and no pedal edema General Extremity: no tenderness to palpation of joints or extremities Skin no rashes or lesions noted General Skin Exam: no breakdown Neuro CN's II-XII intact bilaterally, moves all extremities, no focal motor deficits, no sensory deficits noted and deep tendon reflexes 2+ bilaterally Speech: speech normal Motor Exam: strength 5/5 throughout Psych mental status grossly normal, thought process normal and cooperative Appearance: appropriate Mood & Affect: anxious Assessment & Plan Assessment/Plan (1) Pyelonephritis: PLAN: Plan #Acute right sided pyelonephritis * fever and tachycardia have resolved. * CT abdomen and pelvis showed multiple areas of focal nephronia vs possible infarcts in the right kidney * urology reviewed her and recommends medical management, no indication for surgical intervention * urinalysis showed evidence of UTI * on IV vancomycin and zosyn. * on IV toradol * Urine culture growing E. coli. Continue IV Zosyn. DC vancomycin. * #History of hysterectomy: stable # DVT prophylaxis: Lovenox Charges/Coding Visit Charges Inpatient E&M: 98508 Subs Hosp L2 02/01/24 1496 <Electronically signed by Maame Bergman MD> Maame Bergman MD Cosigner Signature (if applicable): CC: ~ Signed [facility] Work Phone: 1(659) 403-893503-22-2024 Consult note Author Maame Bergman [facility] February 01, 2024 7:10am Note Date/Time February 01, 2024 6:4 9am [facility] Medical Records Department [address] [place] [address] Pharmacokinetic/Renal -Consult 02/01/24 0648 MR#: [id number] Acct: [id number] Name: LANIE LISA Rep #:[id number] : 1990 33 From: Rosio Gutierrez PCP: Dr. Michelle Wilcox MD Status:ADM I N Y Location: [place] [address] Consult Antibiotic Management Pharmacy has been consulted to manage selected antibiotic: Vancomycin Type of Intervention Type of Consult: Follow-up Suspected Infection Suspected Infection: Other (pyelonephritis) Labs Labs: Sodium 138 mmol/L (136-145) 02/01/24 05:40 Potassium 3.7 mmol/L (3.5-5.1) 02/01/24 05:40 Chloride 105 mmol/L (98-107) 02/01/24 05:40 Carbon Dioxide 27.0 mmol/L (21.0-32.0) 02/01/24 05:40 Anion Gap 6 (5-15) 02/01/24 05:40 BUN 8 mg/dL (7-18) 02/01/24 05:40 Creatinine 0.60 mg/dL (0.55-1.02) 02/01/24 05:40 Est GFR (MDRD) Af Amer 147 mL/min (>60) 02/01/24 05:40 Est GFR (MDRD) Non-Af 122 mL/min (>60) 02/01/24 05:40 BUN/Creatinine Ratio 13.2 RATIO (10-20) 02/01/24 05:40 Glucose 91 mg/dL (74-106) 02/01/24 05:40 Vancomycin Trough 6.5 ug/mL (5.0-15.0) 02/01/24 05:40 Microbiology Microbiology: Microbiology 01/30/24 11:12 Urine, Catheterized Urine Culture - Preliminary Presumptive E. coli 01/30/24 11:12 Mucosa - Nose SARS-CoV-2, Influenza & RSV (PCR) - Final Pharmacy Plan for Drug Dosing Pharmacy Plan for Drug Dosing: VANCOMYCIN LEVEL RECEIVED Current Vancomycin Dose: 750MG Q12 Number of Doses Received: 3 Vancomycin Level: 6.5 MG/DL Hours Since Last Dose: 11.5 Renal Function: SCR 0.6 MG/DL, CRCL 96 ML/MIN Renal Function Trend: stable Lab/Micro: urine cx preliminary E. coli Vancomycin Plan/Comments: 11.5 hour trough is subtherapeutic (goal 15-20 mg/dL).Will increase dose to 1500mg Q12 and get a trough prior to 4th dose. Pending Level: 02/02/24 @ 1830 Pharmacy Service will continue to monitor and adjust dosing as required. 02/01/24 0649 <Electronically signed by Rosio Gutierrez> Date _ Rosio Gutierrez 02/01/24 0710 <Electronically signed by Maame jones MD> Cosigner Signature (if applicable): Date Maame Bergman MD CC: ~ Signed [facility] Work Phone: 1(150) 231-196603-21-2024 Progress note Author Maame [facility] January 31, 2024 4:02pm Note Date/Time January 31, 2024 2:0 3pm [facility] Medical Records Department [address] [place] [address] Progress Note 01/31/24 1358 MR#: [id number] Acct: [id number] Name: LANIE LISA Rep #:[id number] : 1990 33 From: Maame Bergman MD PCP: Dr. Michelle Wilcox MD Status:ADM I N Location: [place] [address] Subjective Subjective Patient seen and examined. She still complained of right flank pain. She denied any fever or chills, nausea or vomiting or burning with urination. Review of systems otherwise negative. She has remained hemodynamically stable. Objective Data Objective Data Vital Signs: Vital Signs Temp Pulse Resp BP Pulse Ox O2 Del Method 97.9 F 67 18 98/66 97 Room Air 01/31/24 09:31 01/31/24 09:31 01/31/24 09:31 01/31/24 09:31 01/31/24 09:31 01/31/24 09:31 Oxygen Delivery Method Room Air Weight: 100 lb 4.965 oz Body Mass Index (BMI) 17.7 Intake & Output: Intake and Output for Last 24 Hours 01/29/24 01/30/24 01/31/24 23:59 23:59 23:59 Intake Total 2308.33 / 3158.33 1705 / 1705 Output Total 0 / 0 Balance 2308.33 / 3158.33 1705 / 1705 Lab / Micro Data 01/31/24 06:56 01/31/24 06:56 Labs: Laboratory Results - last 24 hr 01/30/24 11:00: Iron 14 L, TIBC 253, Iron Saturation 5.5 L, Ferritin 307 H, Folate 17.10, TSH 0.21 L 01/30/24 15:47: Lactic Acid 1.2 01/30/24 20:44: Vitamin B12 219 01/31/24 06:56: WBC 14.1 H, RBC 3.42 L, Hgb 10.4 L, Hct 32.0 L, MCV 93.6, MCH 30.4, MCHC 32.5, RDW Std Deviation 44.3 H, RDW Coeff of Tru 12.9, Plt Count 200,MPV 9.4, PT 17.0 H, INR 1.4, Sodium 140, Potassium 3.8, Chloride 110 H, Carbon Dioxide 24.0, Anion Gap 6, BUN 7, Creatinine 0.64, Estim Creat Clear Calc 90.64,Est GFR (MDRD) Af Amer 138, Est GFR (MDRD) Non-Af 114, BUN/Creatinine Ratio 11.0, Glucose 106, Calcium 8.6 Micro: Microbiology 01/30/24 11:12 Urine, Catheterized Urine Culture - Preliminary Presumptive E. coli 01/30/24 11:12 Mucosa - Nose SARS-CoV-2, Influenza & RSV (PCR) - Final Physical Exam Const alert, oriented x3, no apparent distress and well nourished General Appearance: cooperative HEENT head/scalp atraumatic, moist oral mucous membranes and oropharynx normal Eyes PERRL and EOMs intact bilaterally Neck no lymphadenopathy, supple and no JVD Lymph Lymphatic: no lymphadenopathy noted and no lymphedema noted Resp normal respiratory effort, normal air movement and clear to auscultation bilaterally Cardio regular rate, regular rhythm, S1 normal heart sound, S2 normal heart sound and no murmurs GI normal to inspection, nondistended, normoactive bowel sounds, soft to palpation and non-distended GI Narrative: has right sided flank pain Extremity normal capillary refill, no clubbing, cyanosis or edema and no calf tenderness General Extremity: no tenderness to palpation of joints or extremities Skin General Skin Exam: no breakdown Neuro CN's II-XII intact bilaterally, no focal motor deficits, no sensory deficits noted and deep tendon reflexes 2+ bilaterally Motor Exam: strength 5/5 throughout Psych thought process normal and cooperative Appearance: appropriate Assessment & Plan Assessment/Plan (1) Pyelonephritis: PLAN: Plan #Acute right sided pyelonephritis * fever and tachycardia have resolved. * CT abdomen and pelvis showed multiple areas of focal nephronia vs possible infarcts in the right kidney * urology reviewed her and recommends medical management, no indication for surgical intervention * urinalysis showed evidence of UTI * on IV vancomycin and zosyn. * on IV toradol * #History of hysterectomy: stable # DVT prophylaxis: Lovenox Charges/Coding Visit Charges Inpatient E&M: 02865 Subs Hosp L2 01/31/24 1602 <Electronically signed by Maame Bergman MD> Maame Bergman MD Cosigner Signature (if applicable): CC: ~ Signed [facility] Work Phone: 1(618) 808-878203-21-2024 Consult note Author Augustine Blair [facility] January 31, 2024 7:50am Note Date/Time January 31, 2024 7:5 0am [facility] Medical Records Department [address] [place] [address] Consultation - Urology 01/31/24 0748 MR#: [id number] Acct: [id number] Name: LANIE LISA Rep #:[id number] : 1990 33 From: Augustine Blair MD PCP: Dr. Michelle Wilcox MD Status:ADM I N Location: [place] [address] HPI Consult Data Date of Consult: 01/31/24 HPI Narrative Reason for Consultation: Pyelonephritis HPI Narrative: LANIE LISA, is a 33 F who presents to the emergency room with fevers and playing she says she hurts all over her body she had to leave work because of this also urine had a strong odor to it she has been admitted for an infection she had had a CAT scan done that demonstrated some areas of opacity in the rightkidney and appears that she has focal pyelonephritis of the right kidney continue with IV antibiotics await urine culture I reviewed the CAT scan this does not look like infarct looks just like patchy infection from pyelonephritis does not look like infarct to me. Continue with IV antibiotics no intervention is necessary from urology standpoint. Once cultures are back and sensitivities back culture according to the tailor the antibiotics according to culture results. Patient with focal lobar nephronia from infection does not look like infarct. Continue with IV antibiotics call me with questions no intervention needed from urology. [facility] Medical History Anxiety Arthritis Asthma Back pain Depression Gastric reflux Gastritis History of edema History of irregular heartbeat History of steroid therapy Injury of head and neck Kidney stones Migraine headache Pyelonephritis Renal calculus Shortness of breath on exertion Smoker Substance abuse Wears contact lenses Wears glasses Home Medications albuterol sulfate 90 mcg/actuation aerosol inhaler 2 puff inhalation Q6H PRN ASTHMA 03/21/22 [History Last Taken Unknown] benzonatate 200 mg capsule 200 mg PO TID PRN COUGHING 01/30/24 [History Last Taken Unknown] celecoxib 200 mg capsule 200 mg PO DAILY ANTI INFLAMMATORY 01/30/24 [History Last Taken Unknown] cyclobenzaprine 10 mg tablet 10 mg PO TID PRN MUSCLE SPASMS 01/30/24 [History Last Taken Unknown] duloxetine 30 mg capsule,delayed release 30 mg PO DAILY DEPRESSION 01/30/24 [History Last Taken Unknown] Allergy/AdvReac Type Severity Reaction Status Date / Time No Known Allergies Allergy Verified 01/30/24 10:33 Family History Mother Asthma Arthritis Lung cancer Osteoporosis Thyroid disorder Surgical History History of appendectomy History of esophagogastroduodenoscopy (EGD) History of hysterectomy History of tonsillectomy and adenoidectomy Hx of colonoscopy Hx of dilation and curettage Hx of laparoscopy Hx of thumb surgery Social History Smoking Status: Current every day smoker tobacco type: e-cigarettes alcohol intake: current substance use type: does not use additional social history: no aspirin use no ibuprofen use Lab / Micro Data 01/31/24 06:56 01/30/24 11:00 Labs: Laboratory Results - last 24 hr 01/30/24 11:00: WBC 15.3 H, RBC 3.61 L, Hgb 11.1 L, Hct 33.4 L, MCV 92.5, MCH 30.7, MCHC 33.2, RDW Std Deviation 43.1, RDW Coeff of Tru 12.7, Plt Count 213, MPV 9.0, Immature Gran % (Auto) 0.700, Neut % (Auto) 87.8 H, Lymph % (Auto) 3.3 L, [place] % (Auto) 7.9, Eos % (Auto) 0.1, Baso % (Auto) 0.2, Absolute Neuts (auto)13.4 H, Absolute Lymphs (auto) 0.51 L, Nucleated RBC % 0, PT 17.3 H, INR 1.4, APTT 38.8 H, Sodium 136, Potassium 3.9, Chloride 104, Carbon Dioxide 26.0, AnionGap 6, BUN 9, Creatinine 0.78, Estim Creat Clear Calc 70.44, Est GFR (MDRD) Af Amer 110, Est GFR (MDRD) Non-Af 91, BUN/Creatinine Ratio 11.5, Glucose 121 H, Lactic Acid 2.0, Calcium 8.8, Iron 14 L, TIBC 253, Iron Saturation 5.5 L, Ferritin 307 H, Total Bilirubin 0.40, AST 13 L, ALT 17, Alkaline Phosphatase 99,Total Protein 7.1, Albumin 2.9 L, Globulin 4.2, Albumin/Globulin Ratio 0.7 L, Folate 17.10, TSH 0.21 L 01/30/24 11:12: Urine Color Yellow, Urine Clarity Cloudy, Urine pH 6.5, Ur Specific [place] 1.010, Urine Protein 100 H, Urine Glucose (UA) Normal, Urine Ketones Negative, Urine Occult Blood 150 H, Urine Nitrite Negative, Urine Bilirubin Negative, Urine Urobilinogen Normal, Ur Leukocyte Esterase 25 H, Urine RBC 0-5 SEEN, Urine WBC 5-10 SEEN, Ur Squamous Epith Cells 5-10 SEEN, Urine Bacteria 2+, Urine Mucus 1+, Urine Test Negative 01/30/24 15:47: Lactic Acid 1.2 01/30/24 20:44: Vitamin B12 219 01/31/24 06:56: WBC 14.1 H, RBC 3.42 L, Hgb 10.4 L, Hct 32.0 L, MCV 93.6, MCH 30.4, MCHC 32.5, RDW Std Deviation 44.3 H, RDW Coeff of Tru 12.9, Plt Count 200,MPV 9.4 Micro: Microbiology 01/30/24 11:12 Mucosa - Nose SARS-CoV-2, Influenza & RSV (PCR) - Final Imaging Radiology Impression Chest X-Ray 01/30/24 11:03 IMPRESSION: Normal x-ray examination of the chest. Electronically Signed: Yao Corey MD at 12:01 EDT , Abdomen/Pelvis CT 01/30/24 12:03 IMPRESSION: Multiple peripheral based hypodensities involving the right kidney as described. Multiple areas of focal lobar nephronia versus possible infarcts should be ruled out. Small amount of free fluid in the pelvis. Electronically Signed: Yao Corey MD at 13:21 EDT , 01/31/24 0750 <Electronically signed by Augustine Blair MD> Cosigner Signature (if applicable): CC: Dr. Demetrius Ibanez DO; Dr. Michelle Wilcox MD; Dr. Augustine Blair MD~ Signed [facility] Work Phone: 1(318) 701-700303-21-2024 History and physical note Author Demetrius Marcelle [facility] January 30, 2024 10:23pm Note Date/Time January 30, 2024 1:5 1pm [facility] Medical Records Department [address] [place] [address] H&P Exam - Hospitalist 01/30/24 1351 MR#: [id number] Acct: [id number] Name: LANIE LISA Rep #:[id number] : 1990 33 From: Demetrius calero DO PCP: Dr. Michelle Wilcox MD Status:ADM I N Location: [place] [address] HPI - General General Date of Admission: 01/30/24 Date of Service: 01/30/24 Chief Complaint: Fever/chills, body aches, right sided flank pain HPI Narrative LANIE LISA, is a 33 F who presented to [facility] ED on 01/30/2024 with 2-day history of fever/chills, body aches and right-sided flank pain. Patient seen at bedside in the ED. Patient was sitting up in bed and appeared quite distressed. She was crying when I entered the room and was tearful throughout the encounter. She appeared somewhat fatigued. She had a wet towel that she was draping around her head for part of the encounter as well. Patient states that on Sunday she started to develop fevers and chills and general body aches. She then developed right-sided flank pain yesterday andher symptoms generally got much worse. Today she feels about as sick as she hasever felt. States he has a history of kidney stones with a kidney infection about 1 year ago but did not feel this bad with that infection. She started to notice dysuria yesterday evening. Patient is sexually active with her boyfriendonly, last intercourse was about 3 to 4 days ago. She had her first child at 20years old and had a full hysterectomy done at that time. She has a history of herpes but no other STDs, and states her current partner also has only herpes and no other STDs. Patient is quite thin appearing on exam and states she has always been thin. States she has actually gained about 10 pounds recently as she has been trying to eat a little bit more and working out at the gym. She generally was feeling well prior to this Sunday. No other acute concerns at this time. [facility] Medical History Anxiety Arthritis Asthma Back pain Depression Gastric reflux Gastritis History of edema History of irregular heartbeat History of steroid therapy Injury of head and neck Kidney stones Migraine headache Pyelonephritis Renal calculus Shortness of breath on exertion Smoker Substance abuse Wears contact lenses Wears glasses Home Medications albuterol sulfate 90 mcg/actuation aerosol inhaler 2 puff inhalation Q6H PRN ASTHMA 03/21/22 [History Last Taken Unknown] benzonatate 200 mg capsule 200 mg PO TID PRN COUGHING 01/30/24 [History Last Taken Unknown] celecoxib 200 mg capsule 200 mg PO DAILY ANTI INFLAMMATORY 01/30/24 [History Last Taken Unknown] cyclobenzaprine 10 mg tablet 10 mg PO TID PRN MUSCLE SPASMS 01/30/24 [History Last Taken Unknown] duloxetine 30 mg capsule,delayed release 30 mg PO DAILY DEPRESSION 01/30/24 [History Last Taken Unknown] Allergy/AdvReac Type Severity Reaction Status Date / Time No Known Allergies Allergy Verified 01/30/24 10:33 Family History Mother Asthma Arthritis Lung cancer Osteoporosis Thyroid disorder Surgical History History of appendectomy History of esophagogastroduodenoscopy (EGD) History of hysterectomy History of tonsillectomy and adenoidectomy Hx of colonoscopy Hx of dilation and curettage Hx of laparoscopy Hx of thumb surgery Social History Smoking Status: Current every day smoker tobacco type: e-cigarettes alcohol intake: current substance use type: does not use additional social history: no aspirin use no ibuprofen use ROS Constitutional Constitutional: Reports chills, fatigue, fever(s) and malaise; Denies weakness Eyes Eyes: Denies change in vision Cardiovascular Cardiovascular: Denies chest pain, dyspnea on exertion, lightheadedness or syncope Respiratory/Chest Respiratory/Chest: Denies cough, productive cough, shortness of breath at rest or wheezing Gastrointestinal Gastrointestinal: Reports nausea; Denies abdominal pain, constipation, diarrhea or vomiting Genitourinary Genitourinary: Reports dysuria, flank pain and low back pain; Denies difficulty urinating or urinary frequency Musculoskeletal Musculoskeletal: Reports myalgias; Denies arthralgias or back pain Neurologic Neurologic: Denies dizziness, focal weakness or headache(s) Psychiatric Psychiatric: Reports anxiety Endocrine Endocrinology: Denies polydipsia or polyuria Vital Signs Vital Signs Vital Signs: 01/30/24 10:30 01/30/24 10:30 01/30/24 11:19 Temperature 99.8 F H 99.8 F H Temperature Source Temporal Temporal Pulse Rate 123 H 127 H Respiratory Rate 18 18 Respiratory Effort Normal Respiratory Pattern Normal Blood Pressure 112/82 H 112/82 H Blood Pressure Mean 92 92 Pulse Ox 100 100 Oxygen Delivery Method Room Air Room Air 01/30/24 11:33 01/30/24 12:30 01/30/24 12:00 Temperature 100.3 F H 101.4 F H Temperature Source Tympanic Axillary Pulse Rate 107 H 112 H 108 H Respiratory Rate 16 20 H 18 Respiratory Effort Respiratory Pattern Blood Pressure 93/53 L 94/56 L 94/56 L Blood Pressure Mean 66 68 68 Pulse Ox 98 98 98 Oxygen Delivery Method Room Air Room Air Room Air 01/30/24 13:00 Temperature 100.3 F H Temperature Source Temporal Pulse Rate 97 Respiratory Rate 14 Respiratory Effort Respiratory Pattern Blood Pressure 99/66 Blood Pressure Mean 77 Pulse Ox 100 Oxygen Delivery Method Room Air Weight Weight: 43.091 kg Body Mass Index (BMI) 16.8 Physical Exam Const alert and oriented x3 Constitutional Narrative: Young female, thin appearing, appears to be in moderate distress/discomfort thatshe attributes to generalized body aches and fever/chills, appears moderately fatigued, tearful at multiple points during the encounter, otherwise sitting up in bed and conversing normally. General Appearance: cooperative HEENT normocephalic, head/scalp atraumatic, hearing grossly normal bilaterally and nasal mucous membranes and turbinates normal Eyes PERRL, EOMs intact bilaterally and conjunctivae normal Neck full ROM Chest inspection of chest normal Resp normal respiratory effort, normal air movement, no use of accessory muscles and clear to auscultation bilaterally Cardio regular rate, regular rhythm, no murmurs and peripheral pulses 2+ throughout GI normal to inspection, nondistended, normoactive bowel sounds, soft to palpation,non-tender and non-distended Bladder / Kidney Exam: bladder normal to palpation and CVA tenderness right Back/Spine normal ROM Extremity normal to inspection, full ROM and no pedal edema Skin no rashes or lesions noted Neuro moves all extremities and no focal motor deficits Speech: speech normal Psych mental status grossly normal Mood & Affect: anxious Results Lab / Micro Data 01/30/24 11:00 01/30/24 11:00 Labs: Laboratory Results - last 24 hr 01/30/24 11:00: WBC 15.3 H, RBC 3.61 L, Hgb 11.1 L, Hct 33.4 L, MCV 92.5, MCH 30.7, MCHC 33.2, RDW Std Deviation 43.1, RDW Coeff of Tru 12.7, Plt Count 213, MPV 9.0, Immature Gran % (Auto) 0.700, Neut % (Auto) 87.8 H, Lymph % (Auto) 3.3 L, [place] % (Auto) 7.9, Eos % (Auto) 0.1, Baso % (Auto) 0.2, Absolute Neuts (auto)13.4 H, Absolute Lymphs (auto) 0.51 L, Nucleated RBC % 0, PT 17.3 H, INR 1.4, APTT 38.8 H, Sodium 136, Potassium 3.9, Chloride 104, Carbon Dioxide 26.0, AnionGap 6, BUN 9, Creatinine 0.78, Estim Creat Clear Calc 70.44, Est GFR (MDRD) Af Amer 110, Est GFR (MDRD) Non-Af 91, BUN/Creatinine Ratio 11.5, Glucose 121 H, Lactic Acid 2.0, Calcium 8.8, Total Bilirubin 0.40, AST 13 L, ALT 17, Alkaline Phosphatase 99, Total Protein 7.1, Albumin 2.9 L, Globulin 4.2, Albumin/GlobulinRatio 0.7 L 01/30/24 11:12: Urine Color Yellow, Urine Clarity Cloudy, Urine pH 6.5, Ur Specific [place] 1.010, Urine Protein 100 H, Urine Glucose (UA) Normal, Urine Ketones Negative, Urine Occult Blood 150 H, Urine Nitrite Negative, Urine Bilirubin Negative, Urine Urobilinogen Normal, Ur Leukocyte Esterase 25 H, UrineRBC 0-5 SEEN, Urine WBC 5-10 SEEN, Ur Squamous Epith Cells 5-10 SEEN, Urine Bacteria 2+, Urine Mucus 1+, Urine Test Negative Micro: Microbiology 01/30/24 11:12 Mucosa - Nose SARS-CoV-2, Influenza & RSV (PCR) - Final Imaging Radiology Impression Chest X-Ray 01/30/24 11:03 IMPRESSION: Normal x-ray examination of the chest. Electronically Signed: Yao Corey MD at 12:01 EDT , Abdomen/Pelvis CT 01/30/24 12:03 IMPRESSION: Multiple peripheral based hypodensities involving the right kidney as described. Multiple areas of focal lobar nephronia versus possible infarcts should be ruled out. Small amount of free fluid in the pelvis. Electronically Signed: Yao Corey MD at 13:21 EDT , Assessment & Plan Assessment/Plan (1) Pyelonephritis: PLAN: Plan Patient is a 33-year-old female who presented [facility] ED on 01/30/2024 with fever/chills, body aches and right-sided flank pain. 1. Acute pyelonephritis/nephronia, concern for possible renal infarcts ? CT abdomen pelvis with IV contrast showed multiple areas of focal lobar nephronia versus possible infarcts in the right kidney, as well as a small amount of free fluid in the pelvis. ? Patient febrile, mildly hypotensive, and tachycardic in the ED with leukocytosis noted and suspected urinary source. However, no endorgan dysfunction noted so sepsis was ruled out. ? UA with negative nitrites, 25 leukocyte esterase, 5-10 WBCs, 2+ bacteria. Urine culture and blood cultures pending. Minimal previous urine culture data available. ? Patient was given 1 L normal saline in ED with mild improvement in her blood pressures, but continued to appear dry on exam. Gave another 1 L of IV fluids prior to transferring over to the floor. ? Given concern for possible nephronia, will treat with IV Zosyn and IV vancomycin for now. Urology consulted for further recommendations. No need forfurther IV fluids, encourage p.o. intake. Follow-up urine culture and blood cultures. Pain management with IV Toradol as needed. 2. Mild anemia ? Hemoglobin 11.1 on admit, MCV 92. Last hemoglobin values in 2021 were around 14. Patient with history of full hysterectomy, no longer having menstrual cycles. Denies any blood loss that she is aware of. ? Iron studies show low iron, low iron saturation but slightly elevated ferritinwhich appears more consistent with anemia of chronic disease. B12 level borderline low, folate level normal. ? Follow-up a.m. CBC. Can consider B12 replacement as needed. 3. Mildly elevated INR ? INR 1.4 on admit. Unclear etiology. Follow-up a.m. INR. 4. Concern for malnutrition ? BMI 17.8 on admit. Albumin 2.9. Patient reports always being thin, notes that she has been eating more recently and reportedly has gained 5 to 10 pounds in the past few months. Nutrition consulted. 5. History of full hysterectomy ? Patient had a full hysterectomy done for unclear reasons after her first childwas born at age 20. DVT prophylaxis: Lovenox CODE STATUS: Full code, verified Expect disposition: Home, 2 to 3 days Total clinical time spent by myself addressing the patient's medical issues, reviewing all the data, and collaborating with patient's care team: 55 minutes. Charges/Coding Visit Charges Inpatient E&M: 08976 Init Hosp L2 01/30/242222 <Electronically signed by Demetrius Ibanez DO> Cosigner Signature (if applicable): CC: Dr. Demetrius Ibanez DO; Dr. Michelle Wilcox MD~ Signed [facility] Work Phone: 1(992) 880-346903-20-2024 Consult note Author Cezar Hylton [facility] January 30, 2024 6:29pm Note Date/Time January 30, 2024 6:2 9pm [facility] Medical Records Department [address] [place] [address] Pharmacokinetic/Renal -Consult 01/30/24 1828 MR#: [id number] Acct: [id number] Name: LANIE LISA Rep #:[id number] : 1990 33 From: Cezar Hylton PCP: Dr. Michelle Wilcox MD Status:ADM I N Y Location: [place] [address] Consult Antibiotic Management Pharmacy has been consulted to manage selected antibiotic: Vancomycin Type of Intervention Type of Consult: New start Labs Labs: Sodium 136 mmol/L (136-145) 01/30/24 11:00 Potassium 3.9 mmol/L (3.5-5.1) 01/30/24 11:00 Chloride 104 mmol/L (98-107) 01/30/24 11:00 Carbon Dioxide 26.0 mmol/L (21.0-32.0) 01/30/24 11:00 Anion Gap 6 (5-15) 01/30/24 11:00 BUN 9 mg/dL (7-18) 01/30/24 11:00 Creatinine 0.78 mg/dL (0.55-1.02) 01/30/24 11:00 Est GFR (MDRD) Af Amer 110 mL/min (>60) 01/30/24 11:00 Est GFR (MDRD) Non-Af 91 mL/min (>60) 01/30/24 11:00 BUN/Creatinine Ratio 11.5 RATIO (10-20) 01/30/24 11:00 Glucose 121 mg/dL (74-106) H 01/30/24 11:00 Microbiology Microbiology: Microbiology 01/30/24 11:12 Mucosa - Nose SARS-CoV-2, Influenza & RSV (PCR) - Final Goal Trough Goal Trough: 15-20 mcg/mL Pharmacy Plan for Drug Dosing Pharmacy Plan for Drug Dosing: NEW START IV VANCOMYCIN Consulting Physician: Dr. Ibanez Indication: Pyelonephritis Goal Trough: 15-20 SrCr: 0.78 CrCl: 70 mL/min Comments: Patient had loading dose of 1g iv x1 ordered and administered 01/29 @1800 Vancomycin Dose: 750mg IV Q12hr to start 01/31/24 @0600 Pending Level: 02/01/24 @0530, prior to 4th total dose per protocol Pharmacy Service will continue to monitor and adjust dosing as required. 01/30/24 1337 <Electronically signed by Cezar Hylton > Date _ Cezar Hylton Saúligner Signature (if applicable): Date CC: ~ Signed [facility] Work Phone: 1(124) 610-687003-20-2024 Discharge summary Author Wild Pollard [facility] January 30, 2024 4:28pm Note Date/Time January 30, 2024 10: 54am [facility] Medical Records Department [address] [place] [address] Emergency Department Summary 01/30/24 MR#: [id number] Acct: [id number] Name: LANIE LISA Rep #:[id number] : 1990 33 From: Wild Kern PCP: Dr. Michelle Wilcox MD Status:REG E R Location: ED HPI History of Present Illness Chief Complaint: Fever Informant: patient Narrative Narrative: 33-year-old female presenting to the emergency room chief complaint of fever andpain. Patient states she hurts all over like her body got hit by a bus. She states that on Sunday around noon she had to leave work because she developed a frontal headache body aches and then later fever. She states her urine has a strong odor to it. She notes a runny nose from crying. She states she has not been able to sleep more than 20 to 30 minutes. She has been taking ibuprofen 600 mg every 4-6 hours. She states she has been drinking water. She reports that her mom brought her the liquid IV for her water and she drank it like it was nothing. She denies rash sore throat cough diarrhea earache. She took 2 home COVID test that were negative. She went to urgent care and had a flu test that was negative. Patient states she has not felt the sick since she had a kidney infection, kidney stone, and E. coli all at the same time. [facility] Medical History Anxiety Arthritis Asthma Back pain Depression Gastric reflux Gastritis History of edema History of irregular heartbeat History of steroid therapy Injury of head and neck Kidney stones Migraine headache Pyelonephritis Renal calculus Shortness of breath on exertion Smoker Substance abuse Wears contact lenses Wears glasses Home Medications albuterol sulfate 90 mcg/actuation aerosol inhaler 2 puff inhalation Q6H PRN ASTHMA 03/21/22 [History Last Taken Unknown] benzonatate 200 mg capsule 200 mg PO TID PRN COUGHING 01/30/24 [History Last Taken Unknown] celecoxib 200 mg capsule 200 mg PO DAILY ANTI INFLAMMATORY 01/30/24 [History Last Taken Unknown] cyclobenzaprine 10 mg tablet 10 mg PO TID PRN MUSCLE SPASMS 01/30/24 [History Last Taken Unknown] duloxetine 30 mg capsule,delayed release 30 mg PO DAILY DEPRESSION 01/30/24 [History Last Taken Unknown] Allergy/AdvReac Type Severity Reaction Status Date / Time No Known Allergies Allergy Verified 01/30/24 10:33 Family History Mother Asthma Arthritis Lung cancer Osteoporosis Thyroid disorder Surgical History History of appendectomy History of esophagogastroduodenoscopy (EGD) History of hysterectomy History of tonsillectomy and adenoidectomy Hx of colonoscopy Hx of dilation and curettage Hx of laparoscopy Hx of thumb surgery Social History Smoking Status: Current every day smoker tobacco type: e-cigarettes alcohol intake: current substance use type: does not use additional social history: no aspirin use no ibuprofen use ROS ROS ED Constitutional Constitutional ED: Reports chills, fever(s) and sweats; Denies weight loss Eyes Eyes: Denies change in vision or diplopia ENT ENT ED: Denies ear pain, rhinorrhea or sore throat Cardiovascular Cardiovascular: Denies chest pain, orthopnea, palpitations or racing heartbeat Respiratory/Chest Respiratory/Chest: Denies cough, dyspnea or orthopnea Gastrointestinal Gastrointestinal: Reports nausea; Denies abdominal pain, diarrhea or vomiting Genitourinary Genitourinary ED: Reports other Details: Strong smell ; Denies dysuria, hematuria or urinary frequency Musculoskeletal Musculoskeletal: Reports myalgias; Denies arthralgias, back pain or neck pain Integumentary Denies abscess or rash Neurologic Neurologic: Reports headache(s); Denies paresthesias or weakness Psychiatric Psychiatric: Denies anxiety, depression, suicidal ideation or suicidal thoughts Endocrine Endocrinology: Denies polydipsia, polyphagia or polyuria Allergic/Immunologic Allergic/Immunologic ED: Denies mouth swelling, tongue swelling or urticaria EXAM Physical Exam Const Vital Signs: 01/30/24 10:30 01/30/24 10:30 01/30/24 11:19 Temperature 99.8 F H 99.8 F H Temperature Source Temporal Temporal Pulse Rate 123 H 127 H Respiratory Rate 18 18 Respiratory Effort Normal Respiratory Pattern Normal Blood Pressure 112/82 H 112/82 H Blood Pressure Mean 92 92 Pulse Ox 100 100 Oxygen Delivery Method Room Air Room Air 01/30/24 11:33 01/30/24 12:30 01/30/24 12:00 Temperature 100.3 F H 101.4 F H Temperature Source Tympanic Axillary Pulse Rate 107 H 112 H 108 H Respiratory Rate 16 20 H 18 Respiratory Effort Respiratory Pattern Blood Pressure 93/53 L 94/56 L 94/56 L Blood Pressure Mean 66 68 68 Pulse Ox 98 98 98 Oxygen Delivery Method Room Air Room Air Room Air 01/30/24 13:00 01/30/24 14:00 01/30/24 15:07 Temperature 100.3 F H 98.8 F 97.9 F Temperature Source Temporal Oral Oral Pulse Rate 97 98 869 H Respiratory Rate 14 16 16 Respiratory Effort Respiratory Pattern Blood Pressure 99/66 82/56 L 91/76 Blood Pressure Mean 77 64 81 Pulse Ox 100 98 98 Oxygen Delivery Method Room Air Room Air Room Air Positive well nourished and well developed General Appearance ED: well developed HEENT Reports normocephalic, head/scalp atraumatic and moist mucous membranes Eyes PERRL and EOMs intact bilaterally Neck no lymphadenopathy, supple and no JVD Resp normal respiratory effort and clear to auscultation bilaterally Cardio regular rate, regular rhythm and no murmurs Rate: tachycardic GI normal to inspection, nondistended, normoactive bowel sounds and non-tender Palpation: soft Back/Spine no CVA tenderness and normal ROM Extremity normal to inspection General Extremety ED: Negative for edema General Extremity: Negative for edema Neuro oriented x3 and CN's II-XII intact bilaterally Sensorium / Orientation: alert Motor Exam: strength 5/5 throughout Psych Psych Narrative: Patient is shaking with chills and crying. Skin no rashes or lesions noted and no wounds MDM MDM MDM Narrative Medical decision making narrative: Patient received IV fluids Toradol and Zofran. White count is elevated 15.3 hemoglobin 11.1 platelet count 213. INR is 1.4. Lactic acid is 2 creatinine 0.78 anion gap 6 CO2 of 26. Urinalysis demonstrates 2+ bacteria 5-10 white cells 5-10 squamous cells negative nitrates and + leukocyte esterase. Blood andurine cultures were sent. Magnapen interpretation of the chest x-ray is no acute process. COVID influenza and RSV swabs were negative. Patient developed fever received Tylenol as well as ceftriaxone for antibiotic. She also receivedmorphine and Zofran for pain and nausea. A CT of the abdomen pelvis was obtained. This demonstrates some changes of the right kidney which could represent infection/nephronia versus infarcts. I relayed this information and her above workup to the patient. I recommend admission and the patient agrees to this. Spoke with our hospitalist who will be admitting. History & Record Review Discussion w/independent historian: Patient Lab Data Attestation: I reviewed the patient's lab results. Labs: Laboratory Results - last 24 hr 01/30/24 01/30/24 11:00 11:12 WBC 15.3 H RBC 3.61 L Hgb 11.1 L Hct 33.4 L MCV 92.5 MCH 30.7 MCHC 33.2 RDW Std Deviation 43.1 RDW Coeff of Tru 12.7 Plt Count 213 MPV 9.0 Immature Gran % (Auto) 0.700 Neut % (Auto) 87.8 H Lymph % (Auto) 3.3 L [place] % (Auto) 7.9 Eos % (Auto) 0.1 Baso % (Auto) 0.2 Absolute Neuts (auto) 13.4 H Absolute Lymphs (auto) 0.51 L Nucleated RBC % 0 PT 17.3 H INR 1.4 APTT 38.8 H Sodium 136 Potassium 3.9 Chloride 104 Carbon Dioxide 26.0 Anion Gap 6 BUN 9 Creatinine 0.78 Estim Creat Clear Calc 70.44 Est GFR (MDRD) Af Amer 110 Est GFR (MDRD) Non-Af 91 BUN/Creatinine Ratio 11.5 Glucose 121 H Lactic Acid 2.0 Calcium 8.8 Total Bilirubin 0.40 AST 13 L ALT 17 Alkaline Phosphatase 99 Total Protein 7.1 Albumin 2.9 L Globulin 4.2 Albumin/Globulin Ratio 0.7 L Urine Color Yellow Urine Clarity Cloudy Urine pH 6.5 Ur Specific [place] 1.010 Urine Protein 100 H Urine Glucose (UA) Normal Urine Ketones Negative Urine Occult Blood 150 H Urine Nitrite Negative Urine Bilirubin Negative Urine Urobilinogen Normal Ur Leukocyte Esterase 25 H Urine RBC 0-5 SEEN Urine WBC 5-10 SEEN Ur Squamous Epith Cells 5-10 SEEN Urine Bacteria 2+ Urine Mucus 1+ Urine Test Negative Radiography Diagnostic Testing: Clinical Impression(s) from Imaging Studies Chest X-Ray 01/30/24 11:03 IMPRESSION: Normal x-ray examination of the chest. Electronically Signed: Yao Corey MD at 12:01 EDT , Abdomen/Pelvis CT 01/30/24 12:03 IMPRESSION: Multiple peripheral based hypodensities involving the right kidney as described. Multiple areas of focal lobar nephronia versus possible infarcts should be ruled out. Small amount of free fluid in the pelvis. Electronically Signed: Yao Corey MD at 13:21 EDT , Discharge Plan Triage Chief Complaint: Fever ED Provider: Wild Pollard Dx/Rx/DC Orders Prescriptions: No Action albuterol sulfate 90 mcg/actuation Hfa Aerosol Inhaler 2 puff INHALATION Q6H PRN (Reason: ASTHMA) celecoxib 200 mg capsule 200 mg PO DAILY cyclobenzaprine 10 mg tablet 10 mg PO TID PRN (Reason: MUSCLE SPASMS ) duloxetine 30 mg capsule,delayed release(DR/EC) 30 mg PO DAILY benzonatate 200 mg capsule 200 mg PO TID PRN (Reason: COUGHING ) Patient Comments: PT STATES THIS IS A NEWER RX THAT THEY HAVENT TAKEN YET ( OF 01/30/24) Primary Care Provider: Michelle Wilocx Referrals: Michelle Wilcox MD [Primary Care Provider] - What to do if you have Problems For any increased pain, shortness of breath, bleeding, nausea or vomiting, chestpain, or any unexpected problems, contact your Primary Care Provider. Call [facility] ([phone]) or report to the closest Emergency Room. Call 911 if necessary. 01/30/24 1628 <Electronically signed by Wild Pollard DO> Cosigner Signature (if applicable): CC: Dr. Michelle Wilcox MD ~ Signed [facility] Work Phone: 1(375) 549-697003-20-2024 Discharge summary Author Wild Moraehne [facility] January 30, 2024 4:28pm Note Date/Time January 30, 2024 10: 54am [facility] Medical Records Department [address] [place] [address] Emergency Department Summary 01/30/24 MR#: [id number] Acct: [id number] Name: LANIE LISA Rep #:[id number] : 1990 33 From: Wild Kern PCP: Dr. Michelle Wilcox MD Status:REG E R Location: ED HPI History of Present Illness Chief Complaint: Fever Informant: patient Narrative Narrative: 33-year-old female presenting to the emergency room chief complaint of fever andpain. Patient states she hurts all over like her body got hit by a bus. She states that on Sunday around noon she had to leave work because she developed a frontal headache body aches and then later fever. She states her urine has a strong odor to it. She notes a runny nose from crying. She states she has not been able to sleep more than 20 to 30 minutes. She has been taking ibuprofen 600 mg every 4-6 hours. She states she has been drinking water. She reports that her mom brought her the liquid IV for her water and she drank it like it was nothing. She denies rash sore throat cough diarrhea earache. She took 2 home COVID test that were negative. She went to urgent care and had a flu test that was negative. Patient states she has not felt the sick since she had a kidney infection, kidney stone, and E. coli all at the same time. [facility] Medical History Anxiety Arthritis Asthma Back pain Depression Gastric reflux Gastritis History of edema History of irregular heartbeat History of steroid therapy Injury of head and neck Kidney stones Migraine headache Pyelonephritis Renal calculus Shortness of breath on exertion Smoker Substance abuse Wears contact lenses Wears glasses Home Medications albuterol sulfate 90 mcg/actuation aerosol inhaler 2 puff inhalation Q6H PRN ASTHMA 03/21/22 [History Last Taken Unknown] benzonatate 200 mg capsule 200 mg PO TID PRN COUGHING 01/30/24 [History Last Taken Unknown] celecoxib 200 mg capsule 200 mg PO DAILY ANTI INFLAMMATORY 01/30/24 [History Last Taken Unknown] cyclobenzaprine 10 mg tablet 10 mg PO TID PRN MUSCLE SPASMS 01/30/24 [History Last Taken Unknown] duloxetine 30 mg capsule,delayed release 30 mg PO DAILY DEPRESSION 01/30/24 [History Last Taken Unknown] Allergy/AdvReac Type Severity Reaction Status Date / Time No Known Allergies Allergy Verified 01/30/24 10:33 Family History Mother Asthma Arthritis Lung cancer Osteoporosis Thyroid disorder Surgical History History of appendectomy History of esophagogastroduodenoscopy (EGD) History of hysterectomy History of tonsillectomy and adenoidectomy Hx of colonoscopy Hx of dilation and curettage Hx of laparoscopy Hx of thumb surgery Social History Smoking Status: Current every day smoker tobacco type: e-cigarettes alcohol intake: current substance use type: does not use additional social history: no aspirin use no ibuprofen use ROS ROS ED Constitutional Constitutional ED: Reports chills, fever(s) and sweats; Denies weight loss Eyes Eyes: Denies change in vision or diplopia ENT ENT ED: Denies ear pain, rhinorrhea or sore throat Cardiovascular Cardiovascular: Denies chest pain, orthopnea, palpitations or racing heartbeat Respiratory/Chest Respiratory/Chest: Denies cough, dyspnea or orthopnea Gastrointestinal Gastrointestinal: Reports nausea; Denies abdominal pain, diarrhea or vomiting Genitourinary Genitourinary ED: Reports other Details: Strong smell ; Denies dysuria, hematuria or urinary frequency Musculoskeletal Musculoskeletal: Reports myalgias; Denies arthralgias, back pain or neck pain Integumentary Denies abscess or rash Neurologic Neurologic: Reports headache(s); Denies paresthesias or weakness Psychiatric Psychiatric: Denies anxiety, depression, suicidal ideation or suicidal thoughts Endocrine Endocrinology: Denies polydipsia, polyphagia or polyuria Allergic/Immunologic Allergic/Immunologic ED: Denies mouth swelling, tongue swelling or urticaria EXAM Physical Exam Const Vital Signs: 01/30/24 10:30 01/30/24 10:30 01/30/24 11:19 Temperature 99.8 F H 99.8 F H Temperature Source Temporal Temporal Pulse Rate 123 H 127 H Respiratory Rate 18 18 Respiratory Effort Normal Respiratory Pattern Normal Blood Pressure 112/82 H 112/82 H Blood Pressure Mean 92 92 Pulse Ox 100 100 Oxygen Delivery Method Room Air Room Air 01/30/24 11:33 01/30/24 12:30 01/30/24 12:00 Temperature 100.3 F H 101.4 F H Temperature Source Tympanic Axillary Pulse Rate 107 H 112 H 108 H Respiratory Rate 16 20 H 18 Respiratory Effort Respiratory Pattern Blood Pressure 93/53 L 94/56 L 94/56 L Blood Pressure Mean 66 68 68 Pulse Ox 98 98 98 Oxygen Delivery Method Room Air Room Air Room Air 01/30/24 13:00 01/30/24 14:00 01/30/24 15:07 Temperature 100.3 F H 98.8 F 97.9 F Temperature Source Temporal Oral Oral Pulse Rate 97 98 869 H Respiratory Rate 14 16 16 Respiratory Effort Respiratory Pattern Blood Pressure 99/66 82/56 L 91/76 Blood Pressure Mean 77 64 81 Pulse Ox 100 98 98 Oxygen Delivery Method Room Air Room Air Room Air Positive well nourished and well developed General Appearance ED: well developed HEENT Reports normocephalic, head/scalp atraumatic and moist mucous membranes Eyes PERRL and EOMs intact bilaterally Neck no lymphadenopathy, supple and no JVD Resp normal respiratory effort and clear to auscultation bilaterally Cardio regular rate, regular rhythm and no murmurs Rate: tachycardic GI normal to inspection, nondistended, normoactive bowel sounds and non-tender Palpation: soft Back/Spine no CVA tenderness and normal ROM Extremity normal to inspection General Extremety ED: Negative for edema General Extremity: Negative for edema Neuro oriented x3 and CN's II-XII intact bilaterally Sensorium / Orientation: alert Motor Exam: strength 5/5 throughout Psych Psych Narrative: Patient is shaking with chills and crying. Skin no rashes or lesions noted and no wounds MDM MDM MDM Narrative Medical decision making narrative: Patient received IV fluids Toradol and Zofran. White count is elevated 15.3 hemoglobin 11.1 platelet count 213. INR is 1.4. Lactic acid is 2 creatinine 0.78 anion gap 6 CO2 of 26. Urinalysis demonstrates 2+ bacteria 5-10 white cells 5-10 squamous cells negative nitrates and + leukocyte esterase. Blood andurine cultures were sent. Magnapen interpretation of the chest x-ray is no acute process. COVID influenza and RSV swabs were negative. Patient developed fever received Tylenol as well as ceftriaxone for antibiotic. She also receivedmorphine and Zofran for pain and nausea. A CT of the abdomen pelvis was obtained. This demonstrates some changes of the right kidney which could represent infection/nephronia versus infarcts. I relayed this information and her above workup to the patient. I recommend admission and the patient agrees to this. Spoke with our hospitalist who will be admitting. History & Record Review Discussion w/independent historian: Patient Lab Data Attestation: I reviewed the patient's lab results. Labs: Laboratory Results - last 24 hr 01/30/24 01/30/24 11:00 11:12 WBC 15.3 H RBC 3.61 L Hgb 11.1 L Hct 33.4 L MCV 92.5 MCH 30.7 MCHC 33.2 RDW Std Deviation 43.1 RDW Coeff of Tru 12.7 Plt Count 213 MPV 9.0 Immature Gran % (Auto) 0.700 Neut % (Auto) 87.8 H Lymph % (Auto) 3.3 L [place] % (Auto) 7.9 Eos % (Auto) 0.1 Baso % (Auto) 0.2 Absolute Neuts (auto) 13.4 H Absolute Lymphs (auto) 0.51 L Nucleated RBC % 0 PT 17.3 H INR 1.4 APTT 38.8 H Sodium 136 Potassium 3.9 Chloride 104 Carbon Dioxide 26.0 Anion Gap 6 BUN 9 Creatinine 0.78 Estim Creat Clear Calc 70.44 Est GFR (MDRD) Af Amer 110 Est GFR (MDRD) Non-Af 91 BUN/Creatinine Ratio 11.5 Glucose 121 H Lactic Acid 2.0 Calcium 8.8 Total Bilirubin 0.40 AST 13 L ALT 17 Alkaline Phosphatase 99 Total Protein 7.1 Albumin 2.9 L Globulin 4.2 Albumin/Globulin Ratio 0.7 L Urine Color Yellow Urine Clarity Cloudy Urine pH 6.5 Ur Specific [place] 1.010 Urine Protein 100 H Urine Glucose (UA) Normal Urine Ketones Negative Urine Occult Blood 150 H Urine Nitrite Negative Urine Bilirubin Negative Urine Urobilinogen Normal Ur Leukocyte Esterase 25 H Urine RBC 0-5 SEEN Urine WBC 5-10 SEEN Ur Squamous Epith Cells 5-10 SEEN Urine Bacteria 2+ Urine Mucus 1+ Urine Test Negative Radiography Diagnostic Testing: Clinical Impression(s) from Imaging Studies Chest X-Ray 01/30/24 11:03 IMPRESSION: Normal x-ray examination of the chest. Electronically Signed: Yao Corey MD at 12:01 EDT , Abdomen/Pelvis CT 01/30/24 12:03 IMPRESSION: Multiple peripheral based hypodensities involving the right kidney as described. Multiple areas of focal lobar nephronia versus possible infarcts should be ruled out. Small amount of free fluid in the pelvis. Electronically Signed: Yao Corey MD at 13:21 EDT , Discharge Plan Triage Chief Complaint: Fever ED Provider: Wild Pollard Dx/Rx/DC Orders Prescriptions: No Action albuterol sulfate 90 mcg/actuation Hfa Aerosol Inhaler 2 puff INHALATION Q6H PRN (Reason: ASTHMA) celecoxib 200 mg capsule 200 mg PO DAILY cyclobenzaprine 10 mg tablet 10 mg PO TID PRN (Reason: MUSCLE SPASMS ) duloxetine 30 mg capsule,delayed release(DR/EC) 30 mg PO DAILY benzonatate 200 mg capsule 200 mg PO TID PRN (Reason: COUGHING ) Patient Comments: PT STATES THIS IS A NEWER RX THAT THEY HAVENT TAKEN YET ( OF 01/30/24) Primary Care Provider: Michelle Wilcox Referrals: Michelle Wilcox MD [Primary Care Provider] - What to do if you have Problems For any increased pain, shortness of breath, bleeding, nausea or vomiting, chestpain, or any unexpected problems, contact your Primary Care Provider. Call [facility] ([phone]) or report to the closest Emergency Room. Call 911 if necessary. 01/30/24 1624 <Electronically signed by Wild Pollard DO> Cosigner Signature (if applicable): CC: Dr. Michelle Wilcox MD ~ Signed [facility] Work Phone: 1(651) 258-964203-12-2024 Miscellaneous Notes* Telephone Encounter - Cezar Romo PA-C - 01/22/2024 4:42 PM EDT PDMP website checked and validated. All prescriptions have been APPROPRIATELY filled. No suspiciousactivity was identified. 01/22/2024 by Cezar Romo PA-C [facility] History of Present illness Narrative* Alexis Dobson, RT(R) - 01/21/2024 3:40 PM EDT Radiology Service Progress Note PATIENT NAME: Lanie Lisa DATE OF SERVICE: January 21, 2024 TIME: 3:38 PM PATIENT IDENTITY VERIFICATION COMPLETED USING TWO (2) IDENTIFIERS: Name and Date of confirmedby patient verbally. FALL SCREENING: Has the patient had 2 falls in the last year or 1 fall with injury or currently using an Ambulatory Assistive Device (Walker, Cane, Wheelchair, Crutches, etc.)? No PATIENT GENDER DATA: Female. status: : No status: NO. PATIENT RELEVANT IMPLANT DATA REVIEWED: Not Applicable PATIENT PRESENTS WITH AN IMPLANTABLE OR ATTACHED INDUSTRIAL MAINTENANCE REPAIRER: No RADIOLOGY DEPARTMENT: General X-ray: Exam(s) Completed: Spine X-Ray(s): Cervical AP / LAT / OBL PERIPHERAL IV DATA: Not applicable SIGNED BY: RT Jaime(R) January 21, 2024 3:38 PM [facility] History of Present illness Narrative* Cezar Romo PA-C - 01/21/2024 2:16 PM EDT Images from the original note were not included. CC: Patient presents with: Same Day Appointment: numbness,tingling,radiating,and pain x 4 days h/o severe carpal tunnel HPI Lanie Lisa is a 33 year old female who presents today for evaluation of hand, arm, and shoulder pain x 4 days. Seems to be starting in the hand, spanning up ulnar aspect, and shooting up into her left shoulder. Had a similar issue about 6 years ago. Pain is ~7/10 on the pain, described as sharp and throbbing. Started with pins and needles in 1st two digits, then started to notice paresthesias in middle finger, and now the tips of all her fingers are numb. Has tried taking Tylenol, with no relief in symtpoms. Does admit that she asked her grandpa to borrow one of his vicodin because the pain was so intense yesterday. Has also tried heat, exercises and massage, none of which help much. Does a lot of heavy lifting as she works at [employer] lifting heavy items, however she states this is somewhat confusing to her as she is right hand dominant. States she was told that she had an issue with pinched nerve in her neck when she was 18, and they told her that she had acute carpal tunnel that was stemming from a pinched nerve in her neck, confirmed via NCT/EMG. REVIEW OF SYSTEMS See HPI All other systems negative. PAST MEDICAL HISTORY Diagnosis Date Acid reflux Arthritis LEFT WRIST Dysthymic disorder 03/2009 Depression (non-psychotic) Endometriosis PAST SURGICAL HISTORY Procedure Laterality Date COLONOSCOPY FLX DX W/COLLJ SPEC WHEN PFRMD 03/01/16 Colonoscopy with mac DILATION & CURETTAGE DX&/THER NONOBSTETRIC Dilation & curettageX2 EGD TRANSORAL BIOPSY SINGLE/MULTIPLE 12/12/2016 gastritis EXT HYSTERECTOMY,W/PARTIAL VAGINECTO IMPLANON LAP APPENDICOSTOMY 08/04/2019 LAPS ABD PRTM&OMENTUM DX W/WO SPEC BR/WA SPX 12/23/2015 Laparoscopy OOPHORECTOMY PARTIAL OR TOTAL Right 08/04/2019 PAST SURGICAL HISTORY OF oophorectomy/ salpingectomy left PAST SURGICAL HISTORY OF 02/2016 debridment left thumb staph. TONSILLECTOMY PRIMARY/SECONDARY <AGE 13 Tonsillectomy US KIDNEY 07/05/2015 normal ALLERGIES Patient has no known allergies. MEDICATIONS sulfaSALAzine EC (AZULFIDINE EN) 500 mg EC tablet Take 1 tablet by mouth three times daily for 14 days. ondansetron (ZOFRAN ODT ORAL) Take by mouth. ALBUTEROL SULFATE INHALATION Inhale as instructed. HYDROcodone-acetaminophen (NORCO) 5-325 mg per tablet Take 1 tablet by mouth every 8 hours as needed for pain. omeprazole (PRILOSEC) 40 mg capsule Take 40 mg by mouth once daily. FAMILY HISTORY Problem Relation Age of Onset Cancer Mother OVARIAN CANCER Osteoporosis Mother other (Other) Mother Crohn's disease Thyroid Father Heart Maternal Grandmother Diabetes Paternal Grandmother Diabetes Paternal Grandfather Cancer Maternal Aunt OVARIAN CANCER Social History Tobacco Use Smoking status: Former Years: 10 Types: Cigarettes Smokeless tobacco: Never Tobacco comments: approx 2 cig per day Vaping Use Vaping Use: current everyday user Substances: Nicotine, Flavoring Devices: Refillable tank Substance Use Topics Alcohol use: Yes Comment: OCCASIONALLY,BUT NOT WHILE Drug use: No PHYSICAL EXAM BP 102/60 (BP Site: Right Arm, BP Position: Sitting, BP Cuff Size: Regular Adult) Pulse 75 Temp36.7 C (98.1 F) Resp 12 Ht 160 cm (5' 3) Wt 43.5 kg (96 lb) LMP 01/09/2017 SpO2 100% BMI 17.01 kg/m Physical Exam Neck: Comments: Palpable tenderness and muscle spasm noted in left lateral neck, extending down into superior/posterior aspect of left shoulder Musculoskeletal: Left shoulder: Tenderness and bony tenderness present. No swelling, deformity, effusion or crepitus. Normal range of motion. Left forearm: Tenderness present. Left wrist: Bony tenderness and snuff box tenderness present. Arms: Cervical back: Muscular tenderness present. Comments: Shooting pain in areas as outlined. ASSESSMENT/PLAN: 1. Pain of left upper extremity - ICD9: 729.5, ICD10: M79.602 (primary diagnosis) Suspect this to be more central/radicular pain versus CTS, as it seems to be affecting her entire arm and fingers-possibly coming from the shoulder/upper back or neck. Will start with x-ray of cervical spine, as well as labs. Toradol injection given in office in hopes of providing with more optimalrelief for work tomorrow. Celebrex and Flexeril to be used as needed. RICE therapy advised; will beoff for several days starting . If issue persists, we will proceed with NCT/EMG of left upper extremity - EMG(NEURO/NI) - XR CERV OTHER 4V AP/LAT/OBL - CBC + DIFF - TSH BLD - VITAMIN B12 BLOOD - VITAMIN D 25 HYDROXY - COMP METABOLIC PANEL - VALACYCLOVIR 1 GRAM TABLET - CYCLOBENZAPRINE 10 MG TABLET - DULOXETINE 30 MG CAPSULE,DELAYED RELEASE 2. Paresthesias - ICD9: 782.0, ICD10: R20.2 See above - EMG(NEURO/NI) - XR CERV OTHER 4V AP/LAT/OBL - CBC + DIFF - TSH BLD - VITAMIN D 25 HYDROXY - CYCLOBENZAPRINE 10 MG TABLET 3. Cervicalgia - ICD9: 723.1, ICD10: M54.2 See above - EMG(NEURO/NI) - XR CERV OTHER 4V AP/LAT/OBL - CBC + DIFF - VITAMIN D 25 HYDROXY - COMP METABOLIC PANEL - CYCLOBENZAPRINE 10 MG TABLET 4. Herpes simplex vulvovaginitis - ICD9: 054.11, ICD10: A60.04 Patient reports signs and symptoms consistent with genital herpes flare. Rx sent for Valtrex. - CBC + DIFF - VALACYCLOVIR 1 GRAM TABLET 5. Vitamin D deficiency - ICD9: 268.9, ICD10: E55.9 History of this-we will check updated vitamin D levels - VITAMIN D 25 HYDROXY 6. Anxiety neurosis - ICD9: 300.00, ICD10: F41.1 Will start on duloxetine 30 mg, and titrate up to 60 mg in hopes of helping with nerve pain in leftupper extremity, as well as with anxiety. Will assess status in a couple weeks, and titrate up accordingly if tolerating okay. - DULOXETINE 30 MG CAPSULE,DELAYED RELEASE F/u 2 weeks discuss labs, left arm pain, Cymbalta follow-up Prescription instructions reviewed with patient as applicable. Potential red flag symptoms discussed with the patient. Reviewed appropriate action plan to take if red flag symptoms occur. Patient agreeable to treatment plan. Cezar Romo PA-C documented in this encounterSt. [facility] Miscellaneous Notes* Telephone Encounter - Nola Hein LPN - 06/13/2022 7:23 PM EDT Spoke with pt and information listed below given. Pt verbalizes understanding. Nola Hein LPN * Telephone Encounter - Michelle Wilcox MD - 06/13/2022 6:35 PM EDT Unfortunately we dont give opioid pain medication for ulcerative colitis. * Telephone Encounter - Juliet Hammond Pss - 06/13/2022 8:50 AM EDT Lanie is calling back about pain med request. She states she spoke to the surgeon who said she could not provide pain meds, because Dr. Wilcox hadbeen prescribing them already. Patient was also told by surgeon that she has ulcerative colitis and was instructed to see a GI doctor. Patient would like to know if Dr. Wilcox can prescribe pain meds until the appointment. Offered to schedule, but patient unable to at this time. She will call to schedule a GI consult. * Telephone Encounter - Jaymie Razo Ma - 06/09/2022 3:26 PM EDT Left message for return call. * Telephone Encounter - Divina Mejias APRN.CNP - 06/09/2022 9:05 AM EDT I am not able to refill this pain medication. I am concerned that having pain after her procedure concerns me that if it is a complication, the medication could mask the pain. If she continues to have pain post procedure than she needs to follow up with surgeon or go to the ER. Also, I am unsure what was found in the colonoscopy earlier this week. Thank you Divina Mejias APRN.CNP * Telephone Encounter - Alida Kincaid - 06/08/2022 1:19 PM EDT Lanie Lisa is calling on status of pain medication request. She is in a lot of pain. Can provider approve renewal? * Telephone Encounter - Melissa Baer RN - 06/07/2022 4:59 PM EDT Pt reports Dr Gonsales wouldn't give her any pain medication because Dr Wilcox has been prescribing themto her. Let Pt know that Dr Wilcox is out this week, and that previous message was from providers TRAVELING AUDITOR. Pt would like me to ask again if provider would be willing to send in pain medication for her. * Telephone Encounter - Divina Mejias APRN.CNP - 06/07/2022 4:09 PM EDT Please let patient know she will need to contact the physician that performed the procedure for this. Thank you Divina Mejias APRN.CNP * Telephone Encounter - Flaquita Haridn - 06/07/2022 12:03 PM EDT Received phone call from patient saying that she is still having a lot of pain from her procedure yesterday. Patient did get the pain medication on 05/31 but is having pain from the procedure. Please return call to patient if she can get a refill. Please send refill wo [facility] in [place]. documented in this encounterSt. [facility]07[facility] History of Present illness Narrative* Mary Anne Gonsales MD - 06/09/2022 7:42 PM EDT Patient findings of active colitis by biopsies from colonoscopy. Will start patient on azulfidine 500 tid. (Patient asks for prescription for narcotics. I have told patient that this is not indicated) Patient wants this called into [facility] [place] documented in this encounterSt. [facility] Hospital07-26-[facility]22 Nurse Note* Wilton Muñoz RN - 06/06/2022 2:57 PM EDT Patient discharged from unit per wheelchair to private car with her mother driving. Patient is passing gas; moves all extremities and walking independently. No rectal bleeding noted. * Wilton Muñoz RN - 06/06/2022 2:51 PM EDT Patient ambulates without difficulty, passing gas. Conversing with nurses pleasantly. Says her leftupper and left lower abdominal pain is a 7/10, intermittent, and is not unfamiliar to her. States she has had this prior to admission today. Patient is talking about eating a BLT upon discharge. documented in this encounterSt. [facility]07-[facility]-2022 History and physical note * Mary Anne Gonsales MD - 06/06/2022 1:25 PM EDT UPDATED HISTORY AND PHYSICAL EXAMINATION SERVICE DATE: 06/06/2022 SERVICE TIME: 1:16 PHYSICAL EXAM MUST BE COMPLETED ON ADMISSION The History and Physical (completed in the past 30 days) has been reviewed and the patient has beenexamined. The contents accurately reflect the patient's condition with the following additions or revisions since the H&P was completed. Examination indicates no changes. This H&P can be found in the Electronic Medical Record. SIGNATURE: Mary Anne Gonsales MD PATIENT NAME: Lanie Lisa DATE: June 06, 2022 TIME: 1:16 PM * Mary Anne Gonsales MD - 06/06/2022 1:25 PM EDT HISTORY AND PHYSICAL Lanie Lisa 1990 REFERRING PHYSICIAN: Michelle Wilcox MD CHIEF COMPLAINT: Consult (epigastric pain, CT scan done 05/22/22) HPI: The patient is a 31 year old female who presents with left sided abdominal pain. She points from the upper left abdominal area and then waves her hand down to the lower left abdominal wall area. She states that this has been present since she had presented about two months ago with kidney stones and UTI. She states that she had undergone ureteroscopy/cystoscopy for possible retained stones for dilated ureter by an outside facility. None was found. She feels that all her pain has been present since then. She states that the pain is sharp and stabbing intermittently, but there is a constant severe ache. It radiates to the left flank and around to the left side of her back. The pain is every day and affecting her ability to work. She has had accompanying symptoms of nausea and emesis, intermittently. She denies fevers. She states that she had chronic intermittent constipation, sometimes not having a bowel movement for about two weeks and this occurs several times a year. She also complains of abdominal bloating. She notes that her mother had Crohn's disease and required multiple abdominal surgeries of the intestines. She states that she had a colonoscopy in 2016. She admits to vaping. She denies marijuana use. She takes 1-2 Bon[place]arte pills for the pain. CT scan 05/22/2022 IMPRESSION: No acute process in the abdomen or pelvis Incidentally seen is dense material within the stool contents. This was noted previously. Likely ingested material. Possibly bone meal PAST MEDICAL HISTORY Diagnosis Date Acid reflux Arthritis LEFT WRIST Dysthymic disorder 03/2009 Depression (non-psychotic) Endometriosis PAST SURGICAL HISTORY Procedure Laterality Date COLONOSCOPY FLX DX W/COLLJ SPEC WHEN PFRMD 03/01/16 Colonoscopy with mac DILATION & CURETTAGE DX&/THER NONOBSTETRIC Dilation & curettageX2 EGD TRANSORAL BIOPSY SINGLE/MULTIPLE 12/12/2016 gastritis EXT HYSTERECTOMY,W/PARTIAL VAGINECTO IMPLANON LAP APPENDICOSTOMY 08/04/2019 LAPS ABD PRTM&OMENTUM DX W/WO SPEC BR/WA SPX 12/23/2015 Laparoscopy OOPHORECTOMY PARTIAL OR TOTAL Right 08/04/2019 PAST SURGICAL HISTORY OF oophorectomy/ salpingectomy left PAST SURGICAL HISTORY OF 02/2016 debridment left thumb staph. TONSILLECTOMY PRIMARY/SECONDARY <AGE 13 Tonsillectomy US KIDNEY 07/05/2015 normal Current Outpatient Medications Medication Sig omeprazole (PRILOSEC) 40 mg capsule Take 40 mg by mouth once daily. HYDROcodone-acetaminophen (NORCO) 5-325 mg per tablet Take 1 tablet by mouth every 8 hours as needed for pain. peg 3350-Electrolytes (GOLYTELY) 236-22.74-6.74 -5.86 gram suspension Refer to printed prep instructions from your provider. tamsulosin (FLOMAX) 0.4 mg Take 1 capsule by mouth daily at bedtime. (Patient not taking: Reported on 05/29/2022 ) pantoprazole DR (PROTONIX) 40 mg tablet Take 1 tablet by mouth daily before breakfast. Take on empty stomach, 1/2 hr before meal. (Patient not taking: Reported on 05/29/2022 ) phenazopyridine (PYRIDIUM) 100 mg tablet Take 1 tablet by mouth three times daily as needed. (Patient not taking: Reported on 05/29/2022 ) Estradiol (ESTRACE) 0.5 mg tablet Take 1 tablet by mouth once daily. (Patient not taking: Reported on 07/04/2021 ) methocarbamol (ROBAXIN) 500 mg tablet Take 1 tablet by mouth at bedtime as needed. May make drowsy,, take at bedtime. Muscle relaxer (Patient not taking: Reported on 02/14/2021 ) traZODone (DESYREL) 50 mg tablet Take 1 tablet by mouth daily at bedtime. (Patient not taking: Reported on 02/14/2021 ) hydrOXYzine HCl (ATARAX) 25 mg tablet Take 1 tablet by mouth every 6 hours as needed for Itching/Rash. (Patient not taking: Reported on 02/14/2021 ) escitalopram oxalate (LEXAPRO) 10 mg tablet Take 1 tablet by mouth once daily. (Patient not taking:Reported on 02/14/2021 ) meloxicam (MOBIC) 15 mg tablet Take 1 tablet by mouth once daily. With food. ALLERGIES: Patient has no known allergies. PERSONAL HISTORY: Social History Tobacco Use Smoking status: Former Smoker Years: 10.00 Types: Cigarettes Smokeless tobacco: Never Used Tobacco comment: approx 2 cig per day Vaping Use Vaping Use: current everyday user Substances: Nicotine, Flavoring Devices: [employer] tank Substance Use Topics Alcohol use: Yes Comment: OCCASIONALLY,BUT NOT WHILE Drug use: No FAMILY HISTORY Problem Relation Age of Onset Cancer Mother OVARIAN CANCER Osteoporosis Mother other (Other) Mother Crohn's disease Thyroid Father Heart Maternal Grandmother Diabetes Paternal Grandmother Diabetes Paternal Grandfather Cancer Maternal Aunt OVARIAN CANCER The review of systems data was entered by the nurse and reviewed by la Nursing Notes: Chloe Ramsey LPN 05/29/2022 2:47 PM Signed REVIEW OF SYSTEMS: General: The patient notes fatigue, denies weight loss, denies weight gain, denies feeling hot, anddenies feelings of cold. Eyes: The patient notes glaucoma, denies eye injury/surgery, wears glasses or contacts. Ear/Nose/Throat: The patient denies allergies, denies hayfever, denies ear infections, and denies bloody noses. Cardiovascular: The patient denies chest pain, denies heart disease, denies high blood pressure,denies cardiac stent, denies prior heart attack, denies irregular heart beat, denies high cholesterol, denies poor circulation, denies heart failure, other cardiac issues, denies claudication, denies cold feet, denies peripheral arterial stent. Respiratory: The patient denies tuberculosis, denies pneumonia, denies frequent cough, denies pulmonary embolism, notes shortness of breath, and denies coughing up blood. Gastrointestinal: The patient denies difficulty swallowing, notes acid reflux, denies ulcers, notesvomiting, denies jaundice/hepatitis, denies gallbladder problems, denies black or tarry stools, denies hemorrhoids, denies bleeding from rectum, denies diverticulitis, denies constipation, denies diarrhea, denies loss of stool control, and denies hernias. Kidney/Bladder: The patient notes kidney stones, denies urine infections, and notes bloody urine. Skin: The patient denies a history of skin cancer, denies bleeding/changing moles, and denies a history of skin rash. Neurologic: The patient denies a history of epilepsy/convulsions, notes headaches, denies head/spinal injuries, and denies stroke/TIA. Psychiatric: The patient denies psychiatric medications, denies depression, and denies voices, denies substance abuse. Endocrine: The patient denies thyroid disorders, denies diabetes, and denies hormonal problems. Hematologic: The patient denies a history of bruising, denies bleeding, and denies anemia, denies blood clots. Infections: The patient notes a history of measles and mumps, denies rheumatic fever, and denies sexually transmitted diseases. Musculoskeletal: The patient denies back pain/injury, notes back problems, denies sciatica, denies knee/foot trouble, notes arthritis, or denies gout. When was patient's last Mammogram screening? 2019 [facility] Last Colonoscopy: 2015 Chloe Ramsey LPN PHYSICAL EXAMINATION: General: The patient is 31 year old female, well nourished, well hydrated in no acute distress. Thepatient is oriented to time, place, and person. VITALS: Blood pressure 94/60, pulse 96, temperature 36.8 C (98.3 F), height 160 cm (5' 3), weight 46.3 kg (102 lb), last menstrual period 01/09/2017, SpO2 96 %. Body mass index is 18.07 kg/m . Head: Normal cephalic, atraumatic Eyes: pupils are equally round, sclera are clear/anicteric Neck is supple with no tracheal deviation Respiratory: Normal respiratory excursion and pattern. Abdominal exam: benign Extremities: no clubbing, cyanosis or edema. Neuro: non focal Psych: normal mood IMPRESSION: left sided abdominal pain PLAN: I have discussed the above with the patient. I have offered colonoscopy, possible biopsies I have explained the procedure to the patient. I have counseled the patient as to the risks of the procedure, including but not limited to: infection, bleeding, injury to any intrabdominal organs such as liver/spleen, perforation of the GI tract,inability to complete the procedure, complications of anesthesia, etc. the patient understands. The patient was offered a surgery/[facility]. The provider and patient have discussed in detail the risk of exposure to and/or potential harm posed by the COVID-19 viruswith having a surgery/procedure at this time versus the risk of delaying the surgery/procedure. It is not possible to know either the risk of delaying the surgery or procedure or chance of getting aninfection with perfect accuracy, but a joint decision was made between the patient and the providerto proceed at this time with the scheduled surgery/procedure. I have explained to the patient the difference between IV conscious sedation and MAC anesthesia - and I have offered either, according to the patient's wishes. I have explained that with IV conscioussedation there is no anesthesia provider available and therefore there is a limitation of the amount of IV medications that can be given and that the patient may wake up in the middle of the procedure and/or experience pain/discomfort during the procedure. Further discussion was done and the patient was given the opportunity to ask questions and all questions were answered. The patient chooses MAC anesthesia. Patient was counseled that if there are changes in his/her medical condition, to let the office know if surgery should proceed. If there are changes in patient's medical condition from time of this encounter to the day of the procedure that preclude anesthesia, patient may have procedure cancelled for patient's safety. The patient wishes to proceed. I have answered all questions to the patient s satisfaction and the patient has no further questions. Diagnoses: (R10.9) Left sided abdominal pain (primary encounter diagnosis) (R93.3) Abnormal CT scan, gastrointestinal tract documented in this encounterSt. [facility]07-[facility] Miscellaneous Notes* Brief Op Note - Mary Anne Gonsales MD - 06/06/2022 1:25 PM EDT BRIEF OPERATIVE NOTE SURGERY DATE: 06/06/2022 Incision/Procedure Start Time: 13:52 Cecal intubation time: 14:01 Incision Close/Procedure End Time: 14:11 Surgeon(s)/Proceduralist(s) and Turning Lathe Tender(s): Dru Procedures: Colonoscopy with random colon biopsies Anesthesia: MAC Findings: punctate white areas throughout colon though sparing sigmoid and rectum - erythema also, mild hemorrhoidal changes Estimated Blood Loss: minimal Specimens: random colon biopsies of the following - right colon, transverse colon and left colon Complications: None Preop Diagnosis: left sided abdominal pain Postop Diagnosis: mucosal abnormalities of proximal 2/3 colon SIGNATURE: Mary Anne Gonsales MD PATIENT NAME: Lanie Lisa DATE: June 06, 2022 TIME: 2:13 PM documented in this encounterSt. [facility]07-[facility]-2022 Instructions* Patient Instructions* Ulisses Carter MD - 06/05/2022 1:08 PM EDT PROCEED WITH COLONOSCOPY. HYDRATE WELL. FOLLOW INSTRUCTIONS FOR PREPARATION. documented in this encounterSt. [facility]07-[facility]-2022 Miscellaneous Notes* Telephone Encounter - Patricio Cespedes Ma - 06/05/2022 12:53 PM EDT Form given to PCP. * Telephone Encounter - Brigitte Avila LPN - 06/05/2022 9:42 AM EDT No form rec'd at this time. Called [facility] and requested they fax again. Appt with Dr. Carter todayat 1240 pm to review. * Telephone Encounter - Maribel Puentes RN - 06/05/2022 8:41 AM EDT Antonio from [facility] calling to state patient is scheduled for colonoscopy tomorrow at their location and anesthesia notes patient had recent syncopal episode. Anesthesia needing clearance that patient may have colonoscopy completed tomorrow. Informed Antonio that Dr. Wilcox is out as well as Divina Older. Antonio states she will fax clearance form to [facility] provider, Dr. Carter, for possible review today. Antonio aware patient may have to reschedule procedure, if [facility] provider unable to give clearance. Antonio will be faxing clearance form this morning to Dr. Carter's fax, for review. Thank you. documented in this encounterSt. [facility]07-[facility]-2022 History of Present illness Narrative* Ulisses Carter MD - 06/05/2022 12:43 PM EDT This note was created using [employer]. Subjective Consultation requested by Dr. Gonsales for an opinion regarding preoperative examination. My final recommendations will be communicated back to the requesting physician by way of shared Medical record orletter to requesting physician via US mail. Lanie Lisa is a 31 year old female scheduled for colonoscopy 06/05/2022. Anesthesia noted recent syncopal episode. She has no history of heart disease. She had chronic dizziness for years if she did not eat or hydrate well. She passed out 3 weeks ago because she skipped her meal due to work. She started having tunnel vision, but was not able to have food intake before she passed out. She apparently was seen in the local ER. She had no recurrent syncope. She was requesting opioid refill. Review of Systems Constitutional: Negative. HENT: Negative. Eyes: Negative. Respiratory: Negative. Cardiovascular: Negative. Gastrointestinal: Positive for abdominal pain. Neurological: Negative. ACTIVE PROBLEM LIST Acid Reflux Dysthymic Disorder Arthritis Acute Thoracic Myofascial Strain Anxiety Neurosis Tobacco Use Generalized Abdominal Pain Acute Superficial Gastritis Without Hemorrhage Social History Tobacco Use Smoking status: Former Smoker Years: 10.00 Types: Cigarettes Smokeless tobacco: Never Used Tobacco comment: approx 2 cig per day Vaping Use Vaping Use: current everyday user Substances: Nicotine, Flavoring Devices: Refillable tank Substance Use Topics Alcohol use: Yes Comment: OCCASIONALLY,BUT NOT WHILE Drug use: No Current Outpatient Medications Medication Sig HYDROcodone-acetaminophen (NORCO) 5-325 mg per tablet Take 1 tablet by mouth every 8 hours as needed for pain. omeprazole (PRILOSEC) 40 mg capsule Take 40 mg by mouth once daily. No current facility-administered medications for this visit. Objective BP 107/73 (BP Site: Left Arm, BP Position: Supine, BP Cuff Size: Regular Adult) Pulse 66 Temp 36.2 C (97.1 F) (Temporal Artery) Wt 47.6 kg (105 lb) LMP 01/09/2017 BMI 18.60 kg/m Physical Exam Constitutional: General: She is not in acute distress. Appearance: She is not ill-appearing or diaphoretic. HENT: Head: Atraumatic. Eyes: Extraocular Movements: Extraocular movements intact. Conjunctiva/sclera: Conjunctivae normal. Cardiovascular: Rate and Rhythm: Normal rate and regular rhythm. Pulses: Normal pulses. Heart sounds: No murmur heard. No gallop. Pulmonary: Effort: Pulmonary effort is normal. Breath sounds: Normal breath sounds. Musculoskeletal: Right lower leg: No edema. Left lower leg: No edema. Skin: General: Skin is warm. Neurological: General: No focal deficit present. Mental Status: She is alert and oriented to person, place, and time. Cranial Nerves: No cranial nerve deficit. Sensory: No sensory deficit. Motor: No weakness. Coordination: Coordination normal. Gait: Gait normal. Orthostatic vitals normal. ER report from 05/10/22 retrieved. EKG normal. CBC, CMP, UA unremarkable. Brain CT normal. Assessment and Plan 1. Preoperative cardiovascular examination - ICD9: V72.81, ICD10: Z01.810 (primary diagnosis) Proceed with recommended colonoscopy. See printed instructions or information. Form completed. 2. History of syncope - ICD9: V15.89, ICD10: Z87.898 Hydration stressed. 3. Dizziness, nonspecific - ICD9: 780.4, ICD10: R42 Chronic. 4. Opiate use - ICD9: 305.50, ICD10: F11.90 I informed her to wait for PC team to refill her opioid. Ulisses Carter MD documented in this encounterSt. [facility]07[facility]22 Miscellaneous Notes* Telephone Encounter - Guera Dickinson - 05/29/2022 3:11 PM EDT 06/06/2022 [place] documented in this encounterSt. [facility]07-[facility]22 History of Present illness Narrative* Donya Hung, RT(R) - 05/22/2022 10:40 AM EDT Radiology Service Progress Note DATE OF SERVICE: May 22, 2022 TIME: 3:23 PM PATIENT IDENTITY VERIFICATION COMPLETED USING TWO (2) STANDARD IDENTIFIERS: Name and Date of confirmed by patient verbally. FALL SCREENING: Has the patient had 2 falls in the last year or 1 fall with injury or currently using an Ambulatory Assistive Device (Walker, Cane, Wheelchair, Crutches, etc.)? No PATIENT GENDER DATA: Female. status: : No status: NO. PATIENT RELEVANT IMPLANT DATA REVIEWED: Yes ALLERGIES: Reviewed and unchanged CONTRAST ALLERGY: NO. EXAM: CT -CONTRAST INDUCED NEPHROPATHY RISK FACTORS: Not applicable CREATININE: Creatinine Date Value Ref Range Status 03/21/2017 0.77 0.58 - 0.96 mg/dL Final 01/22/2017 0.71 0.70 - 1.40 mg/dL Final 01/13/2017 0.69 (L) 0.70 - 1.40 mg/dL Final eGFR-All Other Races Date Value Ref Range Status 03/21/2017 >60 . Final Comment: eGFR (Estimated GFR) Units of measure: mL/min/1.73 meters squared eGFR is derived from the reexpressed MDRD Study equation using the following parameters: serum creatinine, age, gender and race. The creatinine assay has been calibrated to be traceable to IDMS. An eGFR <60 mL/min/1.73m2 for >3 months is consistent with chronic kidney disease. Refer to KDOQI guidelines for clinical interpretation. In patients with unstable renal function, e.g. those with acute kidney injury, the eGFR may not accurately reflect actual GFR. eGFR- Date Value Ref Range Status 03/21/2017 >60 Final P.O.C.T. RESULTS: POC done: Yes, See Lab Tab May 22, 2022 TREATMENT: N/A PERIPHERAL IV DATA: Ambulatory: A peripheral IV was started in the Left antecubital site with a Angio cath: 22 gauge. RADIOLOGY DEPARTMENT: CT; Exam(s) Completed: Abdomen/Pelvis SIGNATURE: RT Raymundo(R) PATIENT NAME: Lanie Lisa DATE: May 22, 2022 TIME: 3:23 PM documented in this encounterSt. [facility] Hospital07-09-2022 History of Present illness Narrative* Michelle Wilcox MD - 05/20/2022 9:01 AM EDT Reason for Visit Patient presents with: Refill Request Pain: L flank/LLQ ongoing Lanie Lisa is a 31 year old female who presents here today for Above Complaints. Health Maintenance PAP TESTING HPV TESTING COVID-19 VACCINE(3 - Booster for Pfizer series) HPI Patient notes that when she had a partial hysterectomy a tool was left in the vagina. She was having contractions at that time, it was around the day after surgery, that was in 2016. She has a picture of it. 2018 she had a full hysterectomy. She has a h/o endometriosis and had a total of around 6 abdominal surgeries prior to full hysterectomy. She notes BM is normal, last good bm was Yesterday. She notes her food and digestion has been normal lately. Recently she has been having pain in the left lower quadrant since 06/21, she is having procedure by Dr Alfonso urologist, She is having trouble passing urine, she is on the toilet 10 or 15 mins, sometimes it is painful. Will be having urodynamic studies and cytoscopy. Had colonoscopy in 2016and it was normal. She vaps currently, trying to taper herself down, no marijuana. Does not do any drugs. She is working at [employer]. 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 She works 35 to 40 hours a week. She has 1 child of her own, Boyfriend has 5 kids. Both her ovaries are gone she has had multiple renal us and it was It hurts her and she does not want to do anything. No weight loss, fevers or chills No problem-specific Assessment & Plan notes found for this encounter. PAST MEDICAL HISTORY Diagnosis Date Acid reflux Arthritis LEFT WRIST Dysthymic disorder 03/2009 Depression (non-psychotic) Endometriosis PAST SURGICAL HISTORY Procedure Laterality Date COLONOSCOPY FLX DX W/COLLJ SPEC WHEN PFRMD 03/01/16 Colonoscopy with mac DILATION & CURETTAGE DX&/THER NONOBSTETRIC Dilation & curettageX2 EGD TRANSORAL BIOPSY SINGLE/MULTIPLE 12/12/2016 gastritis EXT HYSTERECTOMY,W/PARTIAL VAGINECTO IMPLANON LAP APPENDICOSTOMY 08/04/2019 LAPS ABD PRTM&OMENTUM DX W/WO SPEC BR/WA SPX 12/23/2015 Laparoscopy OOPHORECTOMY PARTIAL OR TOTAL Right 08/04/2019 PAST SURGICAL HISTORY OF oophorectomy/ salpingectomy left PAST SURGICAL HISTORY OF 02/2016 debridment left thumb staph. TONSILLECTOMY PRIMARY/SECONDARY <AGE 13 Tonsillectomy US KIDNEY 07/05/2015 normal FAMILY HISTORY Problem Relation Age of Onset Cancer Mother OVARIAN CANCER Osteoporosis Mother other (Other) Mother Crohn's disease Thyroid Father Heart Maternal Grandmother Diabetes Paternal Grandmother Diabetes Paternal Grandfather Cancer Maternal Aunt OVARIAN CANCER Social History Tobacco Use Smoking status: Former Smoker Years: 10.00 Types: Cigarettes Smokeless tobacco: Never Used Tobacco comment: approx 2 cig per day Vaping Use Vaping Use: current everyday user Substances: Nicotine, Flavoring Devices: Lien Enforcement Substance Use Topics Alcohol use: Yes Comment: OCCASIONALLY,BUT NOT WHILE Drug use: No Past medical history, appointments, medications, allergies reviewed. Pertinent Lab/Diagnostic Studies are reviewed and discussed today Current Outpatient Medications: pantoprazole DR (PROTONIX) 40 mg tablet HYDROcodone-acetaminophen (NORCO) 5-325 mg per tablet tamsulosin (FLOMAX) 0.4 mg phenazopyridine (PYRIDIUM) 100 mg tablet Estradiol (ESTRACE) 0.5 mg tablet methocarbamol (ROBAXIN) 500 mg tablet traZODone (DESYREL) 50 mg tablet hydrOXYzine HCl (ATARAX) 25 mg tablet escitalopram oxalate (LEXAPRO) 10 mg tablet meloxicam (MOBIC) 15 mg tablet Review of Systems CONSTITUTIONAL: No fevers, chills night sweats, unintended weight loss CARDIOVASCULAR: No chest pain, dyspnea, palpitations, orthopnea, PND, ankle edema. PULM: No dyspnea, unexplained cough. GI: No dysphagia/odynophagia, problematic reflux, constipation, diarrhea, changes in stool habits, hematochezia, melena. : No new urinary complaints, including dysuria, gross hematuria or pyuria. NEURO: No new balance problems, peripheral weakness/paresthesias or numbness of concern. Physical Exam BP 92/56 Pulse 64 Resp 16 Wt 47.6 kg (105 lb) LMP 01/09/2017 SpO2 96% BMI 18.60 kg/m General appearance: Well appearing, alert, in no acute distress, well nourished. Skin: Skin color, texture, turgor normal, no suspicious rashes or lesions Head: Normocephalic, no masses, lesions, tenderness or abnormalities Eyes: Anicteric sclera. Pupils are equally round and reactive to light. Extraocular movements are intact. Lungs: Lungs clear to auscultation. No wheezing, rhonchi, rales Heart: RRR without murmur, gallop, or rubs. Abdomen: she has a belly piercing with tattooes all over, in the lower quadrant soft, nondistended,with hyperactive bowel sounds, moderate LUQ and LLQ tenderness, no hepatosplenomegaly or masses, noabdominal bruit, patient would not allow me to do the rebound, guarding or rigidity test ASSESSMENT/PLAN: 1. Left lower quadrant pain - ICD9: 789.04, ICD10: } - CT ABD/PEL W IVCON We could not get a ct stat so gave her some vicodin. To tide her over for the next couple days. The etiology of the pain is Not clear and it is To ER for worsening symptoms, mental status changes, SOB, or side effects of meds that are severe especially allergic reactions causing air way compromise. ?gi related vs ahesions from the numerous surgeries she has done in the past She would benefit from seeing a surgeon. 2. Left upper quadrant abdominal pain - ICD9: 789.02, ICD10: R10.12 Etiology unclear - CT ABD/PEL W IVCON 3. Tobacco use - ICD9: 305.1, ICD10: Z72.0 - Cessation encouraged. - Physiologic and physical aspects of tobacco addiction as well as strategies for quitting were discussed. - Counseling was given focusing on the harmful effects of this addiction especially given the patient's medical condition(s) which will be worsened because of the chemicals in tobacco. Michelle Wilcox MD documented in this encounterSt. [facility]06-30-[facility]22 Miscellaneous Notes* Telephone Encounter - Nola Hein LPN - 05/11/2022 7:59 AM EDT Pt notified and has scheduled apt. Nola Hein LPN * Telephone Encounter - Michelle Wilcox MD - 05/10/2022 8:48 PM EDT Apologies but the pain has no cause identified yet and we cannot give opiates if there is no identified cause * Telephone Encounter - Patricio Cespedes Ma - 05/10/2022 1:57 PM EDT DANDY: 04/19/2022 Last refill: 04/26/2022 QTY: 7 Refills: 0 documented in this encounterSt. [facility] Hospital06-22-2022 Miscellaneous Notes* Telephone Encounter - Nola Hein LPN - 05/03/2022 2:07 PM EDT Spoke with pt and information listed below given. Pt verbalizes understanding. Nola Hein LPN * Telephone Encounter - Michelle Wilcox MD - 05/03/2022 12:43 PM EDT Please call and let patient know that she will not get any more hydrocodone rx from us for the kidney stones, as her last US was negative for them * Telephone Encounter - Nola Hein LPN - 05/02/2022 1:36 PM EDT Patient has been identified by name and date of : Yes Patient phones for refill(s): Pending Prescriptions Disp Refills HYDROCODONE 5 MG-ACETAMINOPHEN 325 MG TABLET 7 tablet 0 Sig: Take 1 tablet by mouth every 8 hours as needed for pain. CANDACE Class: C-II MAX: No Date of last office visit in primary care: 04/19/22 Last 2 Encounter Wt Readings: Date: Wt: 02/06/2022 48.1 kg (106 lb) 08/17/2021 47.2 kg (104 lb) Previous labs/tests for medication: Not applicable Please advise. Thank you. Nola eHin LPN documented in this encounterSt. [facility]06-15-2022 Miscellaneous Notes* Telephone Encounter - Patricio Cespedes Ma - 04/26/2022 8:32 AM EDT DANDY: 04/19/2022 Last refill: 04/19/2022 QTY: 7 Refills: 0 Patient's request for medication is as follows: Pending Prescriptions Disp Refills HYDROCODONE 5 MG-ACETAMINOPHEN 325 MG TABLET 7 tablet 0 Sig: Take 1 tablet by mouth every 8 hours as needed for pain. CANDACE Class: C-II MAX: No Please approve the above prescription(s) to electronically send to pharmacy. Patricio Cespedes Ma documented in this encounterSt. [facility]06-15-2022 History of Present illness Narrative* Andressa Carney, JOHNRI - 04/26/2022 8:30 AM EDT Radiology Service Progress Note PATIENT NAME: Lanie Lisa DATE OF SERVICE: April 26, 2022 TIME: 10:04 AM PATIENT IDENTITY VERIFICATION COMPLETED USING TWO (2) IDENTIFIERS: Name and Date of confirmedby patient verbally. FALL SCREENING: Has the patient had 2 falls in the last year or 1 fall with injury or currently using an Ambulatory Assistive Device (Walker, Cane, Wheelchair, Crutches, etc.)? No PATIENT GENDER DATA: Female. status: : No status: N/A PATIENT RELEVANT IMPLANT DATA REVIEWED: Not Applicable RADIOLOGY DEPARTMENT: Ultrasound PERIPHERAL IV DATA: Not applicable SIGNED BY: Andressa Carney RDMS RVT April 26, 2022 10:04 AM documented in this encounterSt. [facility]06-08-2022 History of Present illness Narrative* Michelle Wilcox MD - 04/19/2022 9:59 AM EDT Chief Complaint Patient presents with: Kidney Problem HPI Lanie Lisa is a 31 year old female who is contacted today for a virtual/telemedicine visit. This is an established patient of Dr. Michelle Wilcox MD. Since February of this year and the patient has been struggling with what she calls flank pain. She does have 1 small kidney stone which is calyceal and should not be causing her pain. She has requestedfor hydrocodone multiple times which has been given to her in very limited amounts. She also wantedthat today. I have told her that may be we could give her a very very few number of pills but she thinks her calyceal stone has gone down into the ureter and that is what could be causing the pain and some trouble with passing urine. She goes to sit on the toilet and it takes her 20 mins to pass urine. It comes out a little at a time and she feels like she still has to go after passing some urine. The thought that comes to my mind is did she have the stone come down into her bladder. We are ordering a renal ultrasound. And for the benefit of the doubt giving her some hydrocodone and some tamsulosin. Patient tested positive for covid yesterday , her whole family is sick. Past medical history, appointments, medications, allergies reviewed 04/19/2022 Previous Medical History PAST MEDICAL HISTORY Diagnosis Date Acid reflux Arthritis LEFT WRIST Dysthymic disorder 03/2009 Depression (non-psychotic) Endometriosis Previous Surgical History PAST SURGICAL HISTORY Procedure Laterality Date COLONOSCOPY FLX DX W/COLLJ SPEC WHEN PFRMD 03/01/16 Colonoscopy with mac DILATION & CURETTAGE DX&/THER NONOBSTETRIC Dilation & curettageX2 EGD TRANSORAL BIOPSY SINGLE/MULTIPLE 12/12/2016 gastritis EXT HYSTERECTOMY,W/PARTIAL VAGINECTO Dr.Seals ELIAS LAP APPENDICOSTOMY 08/04/2019 LAPS ABD PRTM&OMENTUM DX W/WO SPEC BR/WA SPX 12/23/2015 Laparoscopy OOPHORECTOMY PARTIAL OR TOTAL Right 08/04/2019 PAST SURGICAL HISTORY OF oophorectomy/ salpingectomy left PAST SURGICAL HISTORY OF 02/2016 debridment left thumb staph. TONSILLECTOMY PRIMARY/SECONDARY <AGE 13 Tonsillectomy US KIDNEY 07/05/2015 normal Family History FAMILY HISTORY Problem Relation Age of Onset Cancer Mother OVARIAN CANCER Osteoporosis Mother other (Other) Mother Crohn's disease Thyroid Father Heart Maternal Grandmother Diabetes Paternal Grandmother Diabetes Paternal Grandfather Cancer Maternal Aunt OVARIAN CANCER Patient Allergies ALLERGIES No Known Allergies Current Medications Current Outpatient Medications on File Prior to Visit Medication Sig pantoprazole DR (PROTONIX) 40 mg tablet Take 1 tablet by mouth daily before breakfast. Take on empty stomach, 1/2 hr before meal. phenazopyridine (PYRIDIUM) 100 mg tablet Take 1 tablet by mouth three times daily as needed. Estradiol (ESTRACE) 0.5 mg tablet Take 1 tablet by mouth once daily. (Patient not taking: Reported on 07/04/2021 ) methocarbamol (ROBAXIN) 500 mg tablet Take 1 tablet by mouth at bedtime as needed. May make drowsy,, take at bedtime. Muscle relaxer (Patient not taking: Reported on 02/14/2021 ) traZODone (DESYREL) 50 mg tablet Take 1 tablet by mouth daily at bedtime. (Patient not taking: Reported on 02/14/2021 ) hydrOXYzine HCl (ATARAX) 25 mg tablet Take 1 tablet by mouth every 6 hours as needed for Itching/Rash. (Patient not taking: Reported on 02/14/2021 ) escitalopram oxalate (LEXAPRO) 10 mg tablet Take 1 tablet by mouth once daily. (Patient not taking:Reported on 02/14/2021 ) meloxicam (MOBIC) 15 mg tablet Take 1 tablet by mouth once daily. With food. No current facility-administered medications on file prior to visit. Social History Social History Tobacco Use Smoking status: Former Smoker Years: 10.00 Types: Cigarettes Smokeless tobacco: Never Used Tobacco comment: approx 2 cig per day Vaping Use Vaping Use: current everyday user Substances: Nicotine, Flavoring Devices: Lien Enforcement Substance Use Topics Alcohol use: Yes Comment: OCCASIONALLY,BUT NOT WHILE Drug use: No Review of Symptoms GENERAL: No weight loss. No malaise or fevers HEENT: Negative for headaches No eye discharge or redness No earaches or drainage No sore throat Nose POS/NEG for congestion and nasal discharge NECK: Negative for lumps, pain or significant neck swelling RESPIRATORY: No wheezing, SOB, Difficulty breathing. CARDIOVASCULAR: Negative for chest pain GI: No nausea, vomiting, or diarrhea MUSCULOSKELETAL: Negative for muscle aches or bodyaches SKIN: Negative for lesions, rash, and itching Neuro: No lightheadedness or dizziness EXAM: LMP 01/09/2017 Deferred physical exam as visit was completed over the phone. Virtual visit completed using video, limited exam completed. General Appearance: Well appearing, alert, in no acute distress, well-hydrated, well nourished. Skin: Skin color Head: Normocephalic Psych: Attitude - cooperative, easily engaged in conversation Appearance - normal, hygiene and grooming appropriate Affect - euthymic, normal mood Mental status: Alert, attentive. Speech is clear and fluent with good repetition, comprehension Coordination: No abnormal or extraneous movements. Gait/Stance: Posture is normal. Health Maintenance List PAP TESTING Never done HPV TESTING Never done DTAP,TDAP,TD(5 - Tdap) due on 08/17/2022 COVID-19 VACCINE(3 - Booster for Pfizer series) due on 05/19/2022 INFLUENZA(Season Ended) due on 07/13/2022 HEPATITIS C SCREENING Completed HIV SCREENING Completed Data reviewed Last 5 Encounter BP Readings: Date: BP: 02/06/2022 118/58 08/17/2021 92/60 07/04/2021 100/60 02/14/2021 108/64 09/01/2020 100/60 BMI Readings from Last 5 Encounters: 02/06/22 : 18.78 kg/m 08/17/21 : 18.42 kg/m 07/04/21 : 17.54 kg/m 02/14/21 : 15.94 kg/m 09/01/20 : 16.12 kg/m Last 5 Encounter Wt Readings: Date: Wt: 02/06/2022 48.1 kg (106 lb) 08/17/2021 47.2 kg (104 lb) 07/04/2021 44.9 kg (99 lb) 02/14/2021 40.8 kg (90 lb) 09/01/2020 41.3 kg (91 lb) Medication and allergy list reviewed, reconciled and updated 04/19/2022 ASSESSMENT/PLAN: 1. Kidney stones - ICD9: 592.0, ICD10: N20.0 (primary diagnosis) tamsulosin - US KIDNEY/BLADDER - HYDROCODONE 5 MG-ACETAMINOPHEN 325 MG TABLET 2. COVID-19 virus infection - ICD9: 079.89, ICD10: U07.1 Drink a lot of warm water daily. Steam inhalations 2/3 times a day Take zinc 50 mgs , vit d 5000 international unit(s) daily and vit c 500 mgs daily. Lots of rest. Eat more fruits and vegetables. If getting sob, please call us or go to the ER if worsening. Michelle Wilcox MD documented in this encounterSt. [facility]05-25-2022 Miscellaneous Notes* Telephone Encounter - Divina Mejias APRN.CNP - 04/05/2022 6:26 PM EDT Patient was given short term prescription until seeing Dr. Alfonso on 04/07. Would need to discuss findings of evaluation and need for continued narcotic usage with her. Thank you Divina Mejias APRN.CNP * Telephone Encounter - Nato Denny LPN - 04/05/2022 2:47 PM EDT Patient has been identified by name and date of : Yes Patient phones for refill(s): Pending Prescriptions Disp Refills HYDROCODONE 5 MG-ACETAMINOPHEN 325 MG TABLET 7 tablet 0 Sig: Take 1 tablet by mouth twice daily as needed for pain for up to 7 days. CANDACE Class: C-II MAX: No Date of last office visit in primary care: 02/06/2022 Last 2 Encounter Wt Readings: Date: Wt: 02/06/2022 48.1 kg (106 lb) 08/17/2021 47.2 kg (104 lb) Previous labs/tests for medication: Not applicable Please advise. Thank you. Nato Denny LPN documented in this encounterSt. [facility] Hospital05-19-2022 Miscellaneous Notes* Telephone Encounter - Meredith Dale LPN - 03/30/2022 3:38 PM EDT Patient returned call and said she is having pain and has appt with Dr Alfonso on 04/07 for procedure to find out why she is having the pain. Patient is asking for refill on the [facility] rx? * Telephone Encounter - Jaymie Razo Ma - 03/30/2022 3:15 PM EDT Patient notified in different encounter. * Telephone Encounter - Divina Mejias APRN.CNP - 03/29/2022 7:10 PM EDT Patient has been getting narcotics for over a month now, for urinary pain. Has she been re-evaluated for this elsewhere? If she is continuing to have this pain, she needs re-evaluated. Thank you Divina Mejias APRN.SHIRA documented in this encounterSt. [facility] Hospital05-17-2022 Miscellaneous Notes* Telephone Encounter - Nato Denny LPN - 03/28/2022 9:43 AM EDT Patient has been identified by name and date of : Yes Patient phones for refill(s): Pending Prescriptions Disp Refills HYDROCODONE 5 MG-ACETAMINOPHEN 325 MG TABLET 14 tablet 0 Sig: Take 1 tablet by mouth every 8 hours as needed for pain for up to 7 days. CANDACE Class: C-II MAX: No 02/06/2022 Date of last office visit in primary care: 02/06/2022 Last 2 Encounter Wt Readings: Date: Wt: 02/06/2022 48.1 kg (106 lb) 08/17/2021 47.2 kg (104 lb) Previous labs/tests for medication: Not applicable Please advise. Thank you. Nato Denny LPN documented in this encounterSt. [facility] Hospital05-09-2022 Miscellaneous Notes* Telephone Encounter - Nato Denny LPN - 03/20/2022 1:53 PM EDT The following approved medication requests have been transmitted electronically. Signed Prescriptions Disp Refills HYDROcodone-acetaminophen (NORCO) 5-325 mg per tablet 14 tablet 0 Sig: Take 1 tablet by mouth every 8 hours as needed for pain for up to 7 days. CANDACE Class: C-II MAX: No Authorizing Provider: MICHELLE WILCOX LPN * Telephone Encounter - Nola Hein LPN - 03/17/2022 9:09 AM EDT Patient has been identified by name and date of : Yes Patient phones for refill(s): Pending Prescriptions Disp Refills HYDROCODONE 5 MG-ACETAMINOPHEN 325 MG TABLET 14 tablet 0 Sig: Take 1 tablet by mouth every 8 hours as needed for pain for up to 7 days. CANDACE Class: C-II MAX: No Date of last office visit in primary care: 02/06/22 next apt 03/27/22 Last 2 Encounter Wt Readings: Date: Wt: 02/06/2022 48.1 kg (106 lb) 08/17/2021 47.2 kg (104 lb) Previous labs/tests for medication: Not applicable Please advise. Thank you. Nola Hein LPN documented in this encounterSt. [facility]05-09-2022 Miscellaneous Notes* Telephone Encounter - Nato Denny LPN - 03/20/2022 10:48 AM EDT Patient has been identified by name and date of : Yes Patient phones for refill(s): Pending Prescriptions Disp Refills HYDROCODONE 5 MG-ACETAMINOPHEN 325 MG TABLET 14 tablet 0 Sig: Take 1 tablet by mouth every 8 hours as needed for pain for up to 7 days. CANDACE Class: C-II MAX: No Date of last office visit in primary care: 02/06/2022 Last 2 Encounter Wt Readings: Date: Wt: 02/06/2022 48.1 kg (106 lb) 08/17/2021 47.2 kg (104 lb) Previous labs/tests for medication: Not applicable Please advise. Thank you. Nato Denny LPN documented in this encounterSt. [facility] Hospital05-05-2022 Miscellaneous Notes* Telephone Encounter - Michelle Wilcox MD - 03/16/2022 2:17 PM EDT Eduardo cannot refill she needs to be seen for this * Telephone Encounter - Nato Denny LPN - 03/15/2022 11:26 AM EDT Patient has been identified by name and date of : Yes Patient phones for refill(s): Pending Prescriptions Disp Refills HYDROCODONE 5 MG-ACETAMINOPHEN 325 MG TABLET 14 tablet 0 Sig: Take 1 tablet by mouth every 8 hours as needed for pain for up to 7 days. CANDACE Class: C-II MAX: No Date of last office visit in primary care: 02/06/2022 Last 2 Encounter Wt Readings: Date: Wt: 02/06/2022 48.1 kg (106 lb) 08/17/2021 47.2 kg (104 lb) Previous labs/tests for medication: Not applicable Please advise. Thank you. Nato Denny LPN documented in this encounterSt. [facility] Hospital04-18-2022 Miscellaneous Notes* Telephone Encounter - Patricio Cespedes Ma - 02/27/2022 10:00 AM EDT DANDY: 02/06/2022 Last refill: 02/17/2022 QTY: 14 Refills: 0 Patient's request for medication is as follows: Pending Prescriptions Disp Refills HYDROCODONE 5 MG-ACETAMINOPHEN 325 MG TABLET 14 tablet 0 Sig: Take 1 tablet by mouth every 8 hours as needed for pain for up to 7 days. CANDACE Class: C-II MAX: No Please approve the above prescription(s) to electronically send to pharmacy. Patricio Cespedes Ma [facility] Miscellaneous Notes* Telephone Encounter - Nato Denny LPN - 02/17/2022 12:22 PM EDT Patient has been identified by name and date of : Yes Patient phones for refill(s): Pending Prescriptions Disp Refills HYDROCODONE 5 MG-ACETAMINOPHEN 325 MG TABLET 14 tablet 0 Sig: Take 1 tablet by mouth every 8 hours as needed for pain for up to 7 days. CANDACE Class: C-II MAX: No Date of last office visit in primary care: 02/06/22 Last 2 Encounter Wt Readings: Date: Wt: 02/06/2022 48.1 kg (106 lb) 08/17/2021 47.2 kg (104 lb) Previous labs/tests for medication: Not applicable Please advise. Thank you. Nato Denny LPN documented in [facility] Discharge instructions* Instructions* Adeola Vogel DO - 08/08/2021 Call your doctor in the morning to schedule follow-up. Our hand surgery team will call you to schedule follow-up, call them yourself if you hear from them by lunchtime tomorrow. Keep splint on until you see the hand surgeon in follow-up. Ice and elevate your hand above the level of your heart is much as you can. Use prescribed meloxicam on a schedule, not just as needed. Add acetaminophen 650 mg up to 4 times daily as needed. If this is ineffective, add prescribed morphine. Do not drive, climb or operate machinery while taking morphine. Return to the emergency department for numbness to the fingers, worsening pain, or for any other problems or concerns. * Attachments The following attachments cannot be sent through Care Everywhere. * Splint or Immobilizer Use (Cuban) * Hand Fracture (Cuban) [facility] Work Phone: [phone] 295-413210-21-2020 History of Present illness Narrative* Alexis Dobson (Rt)Germain - 09/01/2020 6:00 PM EDT Radiology Service Progress Note PATIENT NAME: Lanie Lisa DATE OF SERVICE: September 01, 2020 TIME: 6:10 PM PATIENT IDENTITY VERIFICATION COMPLETED USING TWO (2) IDENTIFIERS: Name and Date of confirmedby patient verbally. FALL SCREENING: Has the patient had 2 falls in the last year or 1 fall with injury or currently using an Ambulatory Assistive Device (Walker, Cane, Wheelchair, Crutches, etc.)? No PATIENT GENDER DATA: Female. status: : No status: NO. PATIENT RELEVANT IMPLANT DATA REVIEWED: Not Applicable RADIOLOGY DEPARTMENT: General X-ray: Exam(s) Completed: Spine X-Ray(s): Cervical AP / LAT / OBL andThoracic PERIPHERAL IV DATA: Not applicable SIGNED BY: RT Jaime September 01, 2020 6:10 PM documented in this encounterSt[facility] Author Marcin Lozano [facility] Note Date/Time March 28, 2025 11:36 am [facility] Medical Records Department [address] [place] [address] Emergency Department Summary 03/28/25 MR#: [id number] Acct: [id number] Name: LANIE LISA Rep #:[id number] : 1990 34 From: Marcin Young PCP: Dr. Michelle Wilcox MD Status:REG E R Location: ED HPI History of Present Illness Chief Complaint: Headache Informant: patient Narrative Narrative: Presents for evaluation concerns for unequal pupils noted on the left side. Shestates she been having intermittent left-sided headache for years, no head trauma. Last 4 months increasing migraine symptoms. Mother had strokes, had Adamson's palsy. Patient also reports intermittent chest discomfort that lasts a second. No cough. She vapes. She does marijuana. Denies vomiting or diarrhea. Note she states she had her eye exam 3 days ago at [facility]. She had recommended dilation of her eyes however she declined this. She was given trialcontacts the last 2 weeks she did remove them but amount in the mornings.She reports she has told her PCP about her headaches however no images have been performed. [facility] Medical History Pyelonephritis Smoker Wears contact lenses Wears glasses Depression Anxiety History of steroid therapy Arthritis Kidney stones Back pain Migraine headache Injury of head and neck Gastric reflux Shortness of breath on exertion History of edema History of irregular heartbeat Renal calculus Substance abuse Gastritis Asthma Home Medications ?Medication ?Instructions ?Recorded ?Last Taken ?Type NK 03/28/25 Unknown History Allergy/AdvReac Type Severity Reaction Status Date / Time No Known Allergies Allergy Verified 03/28/25 10:11 Family History Mother Asthma Arthritis Lung cancer Osteoporosis Thyroid disorder Surgical History Hx of colonoscopy History of esophagogastroduodenoscopy (EGD) Hx of dilation and curettage Hx of thumb surgery Hx of laparoscopy History of tonsillectomy and adenoidectomy History of appendectomy History of hysterectomy Social History household members: children Smoking Status: Current every day smoker tobacco type: e-cigarettes alcohol intake: current substance use type: does not use additional social history: no aspirin use no ibuprofen use ROS ROS ED Constitutional Constitutional ED: Denies chills, fever(s) or sweats Eyes Eyes: Reports blurry vision ENT ENT ED: Denies sore throat Cardiovascular Cardiovascular: Denies chest pain, leg edema, palpitations or racing heartbeat Respiratory/Chest Respiratory/Chest: Denies cough, dyspnea or dyspnea on exertion Gastrointestinal Gastrointestinal: Denies abdominal pain, diarrhea, nausea or vomiting Genitourinary Genitourinary ED: Denies dysuria, hematuria or urinary frequency Musculoskeletal Musculoskeletal: Denies back pain, extremity pain or neck pain Integumentary Denies rash or wounds Neurologic Neurologic: Reports headache(s); Denies paresthesias or weakness EXAM Physical Exam Const Vital Signs: 03/28/25 10:08 03/28/25 11:08 Temperature 98.1 F Temperature Source Oral Pulse Rate 87 67 Respiratory Rate 16 13 Blood Pressure 115/85 H 119/70 Blood Pressure Mean 95 86 Pulse Ox 98 100 Oxygen Delivery Method Room Air Room Air Positive well nourished and well developed General Appearance ED: well developed and NAD HEENT Reports moist mucous membranes normocephalic and atraumatic Eyes Eyes Narrative: Slight anisocoria of the pupils more dilation left compared to right. Neck full ROM and no meningeal signs Chest Wall Chest: Negative for tenderness Resp normal respiratory effort and normal air movement Effort and Inspection: symmetric chest movement; Negative for respiratory distress Cardio regular rate, regular rhythm and no murmurs Peripheral Pulses: pulses 2+ throughout GI normal to inspection, nondistended, normoactive bowel sounds and non-tender Palpation: Negative for guarding or rebound tenderness present Extremity normal to inspection General Extremety ED: Negative for edema or tenderness General Extremity: Negative for edema Neuro oriented x3, CN's II-XII intact bilaterally and no sensory deficits noted Sensorium / Orientation: awake and alert Skin no rashes or lesions noted and no wounds MDM MDM MDM Narrative Medical decision making narrative: Interventions / MDM: Differential diagnosis: Nonspecific headache, palpitations Diagnosis considered but do not suspect: Intracranial mass/hemorrhage however CTnegative. My EKG interpretation: Sinus rhythm 57, no ST or T wave changes QTc 393. Imaging independently reviewed and interpreted by myself: CT brain: No acute process also read by radiology. External documents reviewed: N/A Test considered but not ordered:N/A ED course: Patient intermittent headaches none currently no meningismus. There is slight pupil difference size left greater than the right. Nontoxic. Will send her for CT brain for evaluation. 1133: CT negative. She is reassured on the findings. Unclear on the unequal pupils which is resolving. She did not get dilation of her eyes she did start with new contacts in clears solution. She will monitor symptoms. EKG was normal. Intermittent headache she will be referred to neurology. No distress at this time. She will follow-up with her PCP palpitations. She states she does not drink caffeine or energy drinks. She will continue to avoid this. Allquestions were answered. Re-evaluation: stable Disposition discussed with patient/family/significant other: Patient Case discussed with consulting clinician: N/A This note was generated with [employer] dictation software. It may contain incorrectwords, spelling, and punctuation that were not noted in checking the note beforesigning. Radiography Diagnostic Testing: Clinical Impression(s) from Imaging Studies Brain CT 03/28/25 10:23 IMPRESSION: No acute intracranial hemorrhage, midline shift or mass effect. If symptoms persist, further evaluation with MRI is recommended. Reading Location: [facility] Discharge Plan Triage Chief Complaint: Headache ED Provider: Marcin Lozano Dx/Rx/DC Orders Clinical Impression: Headache, Anisocoria Instructions: ED Headache Unspecified Prescriptions: No Action NK Primary Care Provider: Michelle Wilcox Referrals: Michelle Wilcox MD [Primary Care Provider] - 1 Week Seven Cueto MD [Non-Staff -Ordering Privileges] - 1-2 Weeks Activity Restrictions/Additional Instructions: CT brain negative. May follow-up with neurology for outpatient valuation of your intermittent headaches. Intermittent brief palpitations EKG normal. Avoid caffeine products or energy drinks. Follow-up with your PCP. Print Language: Cuban Disposition Disposition: Home, Self Care What to do if you have Problems For any increased pain, shortness of breath, bleeding, nausea or vomiting, chestpain, or any unexpected problems, contact your Primary Care Provider. Call [facility] ([phone]) or report to the closest Emergency Room. Call 911 if necessary. 03/28/25 1136 <Electronically signed by Marcin Young> Cosigner Signature (if applicable): CC: Dr. Michelle Wilcox MD ~ Signed [facility] Work Phone: Evaluation note* Diagnosis Exacerbation of asthma, unspecified asthma severity, unspecified whether persistent- Primary documented in this encounter [facility] Work Phone: Evaluation note* Diagnosis Closed boxer's fracture, initial encounter- Primary documented in this encounter [facility] Work Phone: Evaluation note* Diagnosis Urinary tract infection without hematuria, site unspecified documented in this encounter [facility] note* Diagnosis Urinary tract infection without hematuria, site unspecified documented in this encounter [facility] note* Diagnosis Urinary tract infection without hematuria, site unspecified documented in this encounter [facility] note* Diagnosis Urinary tract infection without hematuria, site unspecified documented in this encounter [facility] note* Diagnosis Urinary tract infection without hematuria, site unspecified documented in this encounter [facility] note* Diagnosis Urinary tract infection without hematuria, site unspecified documented in this encounter [facility] note* Diagnosis Onset Date Resolution Status Renal calculus acute Dehydration resolved Pyelonephritis of left kidney resolved UTI (urinary tract infection) resolved Back pain acute Pyelonephritis acute Pelvic pain [facility] Work Phone: evaluation note* Diagnosis Kidney stones- Primary Calculus of kidney COVID-19 virus infection documented in this encounter [facility] note* Diagnosis Kidney stones Calculus of kidney documented in this encounter [facility] note* Diagnosis Kidney stones Calculus of kidney documented in this encounter [facility] note* Diagnosis Kidney stones Calculus of kidney documented in this encounter [facility] note* Diagnosis Kidney stones Calculus of kidney documented in this encounter [facility] note* Diagnosis Left lower quadrant pain- Primary Abdominal pain, left lower quadrant Left upper quadrant abdominal pain Tobacco use Tobacco use disorder Opiate use Opioid abuse, unspecified Kidney stones Calculus of kidney documented in this encounter [facility] note* Diagnosis Left lower quadrant pain Abdominal pain, left lower quadrant Left upper quadrant abdominal pain documented in this encounter [facility] note* Diagnosis Preoperative cardiovascular examination- Primary Pre-operative cardiovascular examination History of syncope Other specified personal history presenting hazards to health Dizziness, nonspecific Dizziness and giddiness Opiate use Opioid abuse, unspecified documented in this encounter [facility] note* Diagnosis Left sided abdominal pain Abdominal pain, unspecified site documented in this encounter [facility] noteNo assessment information availableWFayette [facility] Work Phone: evaluation note* Diagnosis Pain of left upper extremity- Primary Paresthesias Disturbance of skin sensation Cervicalgia Herpes simplex vulvovaginitis Vitamin D deficiency Unspecified vitamin D deficiency Anxiety neurosis Anxiety state, unspecified documented in this encounter [facility] note* Diagnosis Cervicalgia- Primary Pain of left upper extremity [facility]* Diagnosis Onset Date Resolution Status Back pain acute Pyelonephritis acute [facility] Work [facility]* Diagnosis Abnormal finding of kidney- Primary Unspecified disorder of kidney and ureter Pyelonephritis of right kidney Abnormal TSH Other abnormal clinical finding [facility]* Diagnosis Pyelonephritis of right kidney Abnormal finding of kidney Unspecified disorder of kidney and ureter [facility]* Diagnosis Epigastric burning sensation- Primary Abdominal pain, epigastric Abnormal finding of kidney Unspecified disorder of kidney and ureter Hot flashes Symptomatic menopausal or female climacteric states History of colitis Personal history of other diseases of digestive system Diarrhea, unspecified type Chest pain, unspecified type [facility]* Diagnosis Epigastric burning sensation Abdominal pain, epigastric Abnormal finding of kidney Unspecified disorder of kidney and ureter Hot flashes Symptomatic menopausal or female climacteric states Chest pain, unspecified type [facility]* Diagnosis Left flank pain- Primary Abdominal pain, unspecified site Abnormal US (ultrasound) of abdomen Nonspecific (abnormal) findings on radiological and other examination of abdominal area, including retroperitoneum Epigastric pain Abdominal pain, epigastric Elevated amylase Other nonspecific abnormal serum enzyme levels Nausea Nausea alone [facility]* Diagnosis Left flank pain Abdominal pain, unspecified site Abnormal US (ultrasound) of abdomen Nonspecific (abnormal) findings on radiological and other examination of abdominal area, including retroperitoneum [facility]* Diagnosis Left flank pain- Primary Abdominal pain, unspecified site Renal calculus Calculus of kidney [facility]* Diagnosis Left flank pain Abdominal pain, unspecified site Renal calculus Calculus of kidney [facility]* Diagnosis Closed fracture of left foot, initial encounter [facility]* Diagnosis Closed fracture of left foot, initial encounter- Primary Closed fracture of left foot, initial encounter [facility]* Diagnosis Nondisplaced fracture of body of left calcaneus, initial encounter for closed fracture- Primary [facility] Closed fracture of left foot, initial encounter- Primary [facility]* Diagnosis Closed fracture of left foot, initial encounter [facility]* Diagnosis Closed fracture of left foot, initial encounter- Primary [facility]* Diagnosis Closed fracture of left foot, initial encounter [facility]* Diagnosis Closed fracture of left foot, initial encounter- Primary [facility]* Diagnosis Cut of finger- Primary Hospital acquired MRSA infection Methicillin resistant Staphylococcus aureus in conditions classified elsewhere and of unspecified site Vitamin D deficiency Unspecified vitamin D deficiency Vitamin B12 deficiency Other B-complex deficiencies Intestinal malabsorption, unspecified type [facility]* Diagnosis Injury of toe on left foot, subsequent encounter [facility]* Diagnosis Epigastric burning sensation Abdominal pain, epigastric Abnormal finding of kidney Unspecified disorder of kidney and ureter Hot flashes Symptomatic menopausal or female climacteric states [facility]* Diagnosis Pain of left upper extremity Paresthesias Disturbance of skin sensation Cervicalgia [facility]* Diagnosis Acute left-sided thoracic back pain Neck pain Cervicalgia [facility]* Diagnosis Injury of toe on left foot, subsequent encounter- Primary Injury of toe on left foot, subsequent encounter [facility]* Diagnosis Cut of skin of middle finger- Primary [facility]* Diagnosis Injury of finger of left hand, subsequent encounter- Primary Epigastric pain Abdominal pain, epigastric [facility]* Diagnosis Chest wall discomfort- Primary Painful respiration History of fractured rib Personal history of traumatic fracture Stress incontinence of urine History of kidney stones Personal history of urinary calculi History of hysterectomy Acquired absence of both cervix and uterus Chest wall discomfort Painful respiration [facility] Chest wall discomfort Painful respiration [facility] Diagnosis Chest wall discomfort Painful respiration History of fractured rib Personal history of traumatic fracture Epigastric pain Abdominal pain, epigastric Injury of finger of left hand, subsequent encounter [facility]* Diagnosis Rib pain on right side- Primary Chest pain, unspecified [facility]* Diagnosis Rib pain on right side Chest pain, unspecified [facility]* Diagnosis Rib pain on right side Chest pain, unspecified [facility]* Diagnosis Lumbar pain- Primary Lumbago Stress incontinence Female stress incontinence Sciatica, left side [facility]* Diagnosis Acute bilateral low back pain with bilateral sciatica- Primary Injury of back, subsequent encounter Encounter for issue of other medical certificate Acute bilateral low back pain with bilateral sciatica Injury of back, subsequent encounter [facility]* Diagnosis Acute bilateral low back pain with bilateral sciatica Injury of back, subsequent encounter [facility]* Diagnosis Acute bilateral low back pain with bilateral sciatica Injury of back, subsequent encounter [facility]* Diagnosis Acute bilateral low back pain with bilateral sciatica Injury of back, subsequent encounter [facility]* Diagnosis Left flank pain- Primary Abdominal pain, unspecified site History of kidney stones Personal history of urinary calculi UTI symptoms Other symptoms involving urinary system Microscopic hematuria Malaise and fatigue Other malaise and fatigue Chills Chills (without fever) Renal colic on left side Renal colic Urinary tract infection with hematuria, site unspecified [facility]* Diagnosis UTI symptoms Other symptoms involving urinary system History of kidney stones Personal history of urinary calculi Left flank pain Abdominal pain, unspecified site Microscopic hematuria Malaise and fatigue Other malaise and fatigue Chills Chills (without fever) [facility]* Attachments The following attachments cannot be sent through Care Everywhere. * Asthma: General Info (Cuban) documented in this [facility] Work Phone: Hospital Discharge instructions Additional Instructions CT brain negative. May follow-up with neurology for outpatient valuation of your intermittent headaches. Intermittent brief palpitations EKG normal. Avoid caffeine products or energy drinks. Follow-up with your PCP.[facility] Work Phone: Reason for referral (narrative)* Diagnostic Procedure Only (Routine) - Closed Specialty Diagnoses / Procedures Referred By Contac t Referred To Contact US IMAGING Diagnoses Kidney stones Procedures US KIDNEY/BLADDER US RETROPERITONEAL REAL TIME W/IMAGE COMPLETE Michelle Wilcox MD [address] [place] [address] Us Imaging Referral ID Status Reason Start Date Expiration Date V isits Requested Visits Authorized [id number] Closed Auto-Generate d Referral 04/19/2022 05/19/2023 1 1 [facility] for referral (narrative)* Outpatient Procedure (Routine) - Closed Specialty Diagnoses / Procedures Referred By Contac t Referred To Contact [facility] Diagnoses Left sided abdominal pain Procedures COLONOSCOPY DIAGNOSTIC COLONOSCOPY FLX DX W/COLLJ SPEC WHEN Mary Anne Bowen MD [address] [place] [address] [facility] [address] [place] [address] Referral ID Status Reason Start Date Expiration Date V isits Requested Visits Authorized [id number] Closed Auto-Generate d Referral 05/29/2022 05/29/2023 1 1 [facility] for referral (narrative)* Diagnostic Procedure Only (Routine) - Closed Specialty Diagnoses / Procedures Referred By Contac t Referred To Contact XR IMAGING Diagnoses Pain of left upper extremity Paresthesias Cervicalgia Procedures XR CERV OTHER 4V AP/LAT/OBL RADEX SPINE CERVICAL 4 OR 5 VIEWS Cezar Romo PA-C [address] [place] [address] [place] [address] Referral ID Status Reason Start Date Expiration Date V isits Requested Visits Authorized [id number] Closed Auto-Generate d Referral 01/21/2024 02/19/2025 1 1 * Outpatient Procedure (Routine) - Pending Review Specialty Diagnoses / Procedures Referred By Contac t Referred To [facility] Diagnoses Pain of left upper extremity Paresthesias Cervicalgia Procedures EMG(NEURO/NI) NERVE CONDUCTION STUDIES 9-10 STUDIES Cezar Romo PA-C [address] [place] [address] [facility] [place] [address] [place] [id number] Referral ID Status Reason Start Date Expiration Date Visits Requested Visits Authorized [id number] Pending Review Auto-Generat ed Referral 01/21/2024 01/20/2025 1 1 [facility] for referral (narrative)* Diagnostic Procedure Only (Urgent) - Closed Specialty Diagnoses / Procedures Referred By Contac t Referred To Contact US IMAGING Diagnoses Pyelonephritis of right kidney Abnormal finding of kidney Procedures US KIDNEY/BLADDER US RETROPERITONEAL REAL TIME W/IMAGE COMPLETE Cezar Rmoo PA-C [address] [place] [address] Us Imaging [facility] Referral ID Status Reason Start Date Expiration Date V isits Requested Visits Authorized [id number] Closed Auto-Generate d Referral 02/05/2024 03/06/2025 1 1 [facility] for referral (narrative)* Diagnostic Procedure Only (Urgent) - Closed Specialty Diagnoses / Procedures [facility] To Contact [facility] Diagnoses Pyelonephritis of right kidney Abnormal finding of kidney Procedures US KIDNEY/BLADDER US RETROPERITONEAL REAL TIME W/IMAGE COMPLETE Cezar Romo PA-C [address] [place] [address] Us Imaging [facility]95 Referral ID Status Reason Start Date Expiration Date V isits Requested Visits Authorized [id number] Closed Auto-Generate d Referral 02/05/2024 03/06/2025 1 1 [facility] for referral (narrative)* Diagnostic Procedure Only (Urgent) - Authorized Specialty Diagnoses / Procedures Referred By Contac t Referred To Contact US IMAGING Diagnoses Epigastric burning sensation Abnormal finding of kidney Hot flashes Chest pain, unspecified type Procedures US ABD RIGHT UPPER QUADRANT US ABDOMINAL REAL TIME W/IMAGE LIMITED Cezar Romo PA-C [address] [place] [address] [place] [address] Referral ID Status Reason Start Date Expiration Date Visits Requested Visits Authorized [id number] Authorized Auto-Generat ed Referral 02/11/2024 03/12/2025 1 1 * Consult, Test, Treat (Routine) - Authorized Specialty Diagnoses / Procedures Referred By Maxi t Referred To Contact General Surgery Diagnoses Epigastric burning sensation Procedures CONSULT TO GENERAL SURGERY OFFICE/OUTPATIENT [facility] 60 MINUTES Cezar Romo PA-C [address] [place] [address] Referral ID Status Reason Start Date Expiration Date Visits Requested Visits Authorized [id number] Authorized PCP Requested Referral 02/11/2024 02/10/2025 1 1 * Diagnostic Procedure Only (Urgent) - Closed Specialty Diagnoses / Procedures Referred By Contac t Referred To Contact XR IMAGING Diagnoses Epigastric burning sensation Abnormal finding of kidney Procedures XR ABDOMEN 2V ROUTINE SUPINE W UPRIGHT/DECUB/CTL RADIOLOGIC EXAM ABDOMEN 2 VIEWS Cezar Romo PA-C [address] [place] [address] [place] [address] Referral ID Status Reason Start Date Expiration Date V isits Requested Visits Authorized [id number] Closed Auto-Generate d Referral 02/11/2024 03/12/2025 1 1 [facility] for referral (narrative)* Diagnostic Procedure Only (Urgent) - Closed Specialty Diagnoses / Procedures Referred By Contac t Referred To Contact US IMAGING Diagnoses Epigastric burning sensation Abnormal finding of kidney Hot flashes Chest pain, unspecified type Procedures US ABD RIGHT UPPER QUADRANT US ABDOMINAL REAL TIME W/IMAGE LIMITED Cezar Romo PA-C [address] [place] [address] [place] [address] Referral ID Status Reason Start Date Expiration Date V isits Requested Visits Authorized [id number] Closed Auto-Generate d Referral 02/11/2024 03/12/2025 1 1 [facility] for referral (narrative)* Diagnostic Procedure Only (Routine) - Pending Review Specialty Diagnoses / Procedures Referred By Contac t Referred To Contact XR IMAGING Diagnoses Closed fracture of left foot, initial encounter Procedures XR FOOT GENERAL 3V AP/LAT/OBL LEFT RADEX FOOT COMPLETE MINIMUM 3 VIEWS [address]ón [place] [address] [place] [address] Referral ID Status Reason Start Date Expiration Date Visits Requested Visits Authorized [id number] Pending Review Auto-Generat ed Referral 04/24/2024 05/24/2025 1 1 [facility] for referral (narrative)* Diagnostic Procedure Only (Routine) - Pending Review Specialty Diagnoses / Procedures Referred By Contac t Referred To Contact XR IMAGING Diagnoses Closed fracture of left foot, initial encounter Procedures XR FOOT GENERAL 3V AP/LAT/OBL LEFT RADEX FOOT COMPLETE MINIMUM 3 VIEWS [address] [place] [address] [place] [address] Referral ID Status Reason Start Date Expiration Date Visits Requested Visits Authorized [id number] Pending Review Auto-Generat ed Referral 05/14/2024 05/30/2025 1 1 * Diagnostic Procedure Only (Routine) - Pending Review Specialty Diagnoses / Procedures Referred By Contac t Referred To Contact XR IMAGING Diagnoses Closed fracture of left foot, initial encounter Procedures XR FOOT GENERAL 3V AP/LAT/OBL LEFT RADEX FOOT COMPLETE MINIMUM 3 VIEWS Simón [place] [address] [place] [address] Referral ID Status Reason Start Date Expiration Date Visits Requested Visits Authorized [id number] Pending Review Auto-Generat ed Referral 04/29/2024 05/29/2025 1 1 [facility] for referral (narrative)* Diagnostic Procedure Only (Urgent) - Closed Specialty Diagnoses / Procedures Referred By Contac t Referred To Contact XR IMAGING Diagnoses Injury of toe on left foot, subsequent encounter Procedures XR FOOT GENERAL 3V AP/LAT/OBL LEFT RADEX FOOT COMPLETE MINIMUM 3 VIEWS Jenn Yoon, OUTBOARD TECHNICIAN.CEMENT DESPATCH OPERATOR [address] [place] [address] [place] [address] Referral ID Status Reason Start Date Expiration Date V isits Requested Visits Authorized [id number] Closed Auto-Generate d Referral 04/21/2024 05/21/2025 1 1 Electronically signed by Jenn Yoon OUTBOARD TECHNICIAN.RESIDENTIAL CHILD CARE COUNSELOR at 04/21/2024 12:24 PM EDT [facility] for referral (narrative)* Diagnostic Procedure Only (Urgent) - Closed Specialty Diagnoses / Procedures Referred By Contac t Referred To Contact XR IMAGING Diagnoses Epigastric burning sensation Abnormal finding of kidney Procedures XR ABDOMEN 2V ROUTINE SUPINE W UPRIGHT/DECUB/CTL RADIOLOGIC EXAM ABDOMEN 2 VIEWS Cezar Romo PA-C [address] [place] [address] [place] [address] Referral ID Status Reason Start Date Expiration Date V isits Requested Visits Authorized [id number] Closed Auto-Generate d Referral 02/11/2024 03/12/2025 1 1 [facility] for referral (narrative)* Diagnostic Procedure Only (Routine) - Closed Specialty Diagnoses / Procedures Referred By Contac t Referred To Contact XR IMAGING Diagnoses Pain of left upper extremity Paresthesias Cervicalgia Procedures XR CERV OTHER 4V AP/LAT/OBL RADEX SPINE CERVICAL 4 OR 5 VIEWS Cezar Romo PA-C [address] [place] [address] [place] [address] Referral ID Status Reason Start Date Expiration Date V isits Requested Visits Authorized [id number] Closed Auto-Generate d Referral 01/21/2024 02/19/2025 1 1 [facility] for referral (narrative)* Diagnostic Procedure Only (Urgent) - Closed Specialty Diagnoses / Procedures Referred By Contac t Referred To Contact XR IMAGING Diagnoses Injury of toe on left foot, subsequent encounter Procedures XR FOOT GENERAL 3V AP/LAT/OBL LEFT RADEX FOOT COMPLETE MINIMUM 3 VIEWS Jenn Yoon APRN.CNS [address] [place] [address] [place] [address] Referral ID Status Reason Start Date Expiration Date V isits Requested Visits Authorized [id number] Closed Auto-Generate d Referral 04/21/2024 05/21/2025 1 1 * Consult, Test, Treat (Routine) - Authorized Specialty Diagnoses / Procedures Referred By Contac t Referred To Contact Podiatry Diagnoses Injury of toe on left foot, subsequent encounter Procedures CONSULT TO PODIATRY OFFICE/OUTPATIENT [facility] 60 MINUTES Jenn Yoon APRN.CNS [address] [place] [address] Referral ID Status Reason Start Date Expiration Date Visits Requested Visits Authorized [id number] Authorized PCP Requested Referral 04/21/2024 04/21/2025 1 1 [facility] for referral (narrative)* Diagnostic Procedure Only (Routine) - Closed Specialty Diagnoses / Procedures Referred By Contac t Referred To Contact XR IMAGING Diagnoses Rib pain on right side Procedures XR RIBS BILATERAL/CHEST 4V RADEX RIBS BI W/POSTEROANT CH MINIMUM 4 VIEWS Michelle Wilcox MD [address] [place] [address] Xr Imaging [facility]95 Referral ID Status Reason Start Date Expiration Date V isits Requested Visits Authorized [id number] Closed Auto-Generate d Referral 12/02/2024 01/01/2026 1 1 [facility] for referral (narrative)No reason for referral information availableWF[facility] Work Phone: Reason for visit Narrative* Outpatient Procedure (Routine) - Closed Specialty Diagnoses / Procedures Referred By Contac t Referred To Contact [facility] Diagnoses Left sided abdominal pain Procedures COLONOSCOPY DIAGNOSTIC COLONOSCOPY FLX DX W/COLLJ SPEC WHEN Mary Anne Bowen MD [address] [place] [address] [facility] [place] [address] [place] [id number] Referral ID Status Reason Start Date Expiration Date V isits Requested Visits Authorized [id number] Closed Auto-Generate d Referral 05/29/2022 05/29/2023 1 1 [facility] for visit Narrative* Diagnostic Procedure Only (Urgent) - Closed Specialty Diagnoses / Procedures Referred By Contac t Referred To Contact US IMAGING Diagnoses Pyelonephritis of right kidney Abnormal finding of kidney Procedures US KIDNEY/BLADDER US RETROPERITONEAL REAL TIME W/IMAGE COMPLETE Cezar Romo PA-C [address] [place] [address] Us Imaging [facility]95 Referral ID Status Reason Start Date Expiration Date V isits Requested Visits Authorized [id number] Closed Auto-Generate d Referral 02/05/2024 03/06/2025 1 1 [facility] for visit Narrative* Diagnostic Procedure Only (Urgent) - Closed Specialty Diagnoses / Procedures Referred By Contac t Referred To Contact US IMAGING Diagnoses Epigastric burning sensation Abnormal finding of kidney Hot flashes Chest pain, unspecified type Procedures US ABD RIGHT UPPER QUADRANT US ABDOMINAL REAL TIME W/IMAGE LIMITED Cezar Romo PA-C [address] [place] [address] [place] [address] Referral ID Status Reason Start Date Expiration Date V isits Requested Visits Authorized [id number] Closed Auto-Generate d Referral 02/11/2024 03/12/2025 1 1 [facility] for visit Narrative* Diagnostic Procedure Only (Routine) - Closed Specialty Diagnoses / Procedures Referred By Contac t Referred To Contact XR IMAGING Diagnoses Closed fracture of left foot, initial encounter Procedures XR FOOT GENERAL 3V AP/LAT/OBL LEFT RADEX FOOT COMPLETE MINIMUM 3 VIEWS Simón Tellez [address] [place] [address] [place] [address] Referral ID Status Reason Start Date Expiration Date V isits Requested Visits Authorized [id number] Closed Auto-Generate d Referral 04/24/2024 05/24/2025 1 1 [facility] for visit Narrative* Diagnostic Procedure Only (Urgent) - Closed Specialty Diagnoses / Procedures Referred By Contac t Referred To Contact XR IMAGING Diagnoses Injury of toe on left foot, subsequent encounter Procedures XR FOOT GENERAL 3V AP/LAT/OBL LEFT RADEX FOOT COMPLETE MINIMUM 3 VIEWS Jenn Yoon, OUTBOARD TECHNICIAN.CEMENT DESPATCH OPERATOR [address] [place] [address] [place] [address] Referral ID Status Reason Start Date Expiration Date V isits Requested Visits Authorized [id number] Closed Auto-Generate d Referral 04/21/2024 05/21/2025 1 1 [facility] for visit Narrative* Diagnostic Procedure Only (Urgent) - Closed Specialty Diagnoses / Procedures Referred By Contac t Referred To Contact XR IMAGING Diagnoses Epigastric burning sensation Abnormal finding of kidney Procedures XR ABDOMEN 2V ROUTINE SUPINE W UPRIGHT/DECUB/CTL RADIOLOGIC EXAM ABDOMEN 2 VIEWS Cezar Romo PA-C [address] [place] [address] [place] [address] Referral ID Status Reason Start Date Expiration Date V isits Requested Visits Authorized [id number] Closed Auto-Generate d Referral 02/11/2024 03/12/2025 1 1 [facility] for visit Narrative* Diagnostic Procedure Only (Routine) - Closed Specialty Diagnoses / Procedures Referred By Contac t Referred To Contact XR IMAGING Diagnoses Pain of left upper extremity Paresthesias Cervicalgia Procedures XR CERV OTHER 4V AP/LAT/OBL RADEX SPINE CERVICAL 4 OR 5 VIEWS Cezar Romo, SURENDRA [address] [place] [address] [place] [address] Referral ID Status Reason Start Date Expiration Date V isits Requested Visits Authorized [id number] Closed Auto-Generate d Referral 01/21/2024 02/19/2025 1 1 [facility] for visit Narrative* Diagnostic Procedure Only (Routine) - Closed Specialty Diagnoses / Procedures Referred By Contac t Referred To Contact XR IMAGING Diagnoses Rib pain on right side Procedures XR RIBS BILATERAL/CHEST 4V RADEX RIBS BI W/POSTEROANT CH MINIMUM 4 VIEWS Michelle Wilcox MD [address] [place] [address] [place] [address] Referral ID Status Reason Start Date Expiration Date V isits Requested Visits Authorized [id number] Closed Auto-Generate d Referral 12/02/2024 01/01/2026 1 1 [facility] for visit Narrative* Diagnostic Procedure Only (Routine) - Closed Specialty Diagnoses / Procedures Referred By Contac t Referred To Contact XR IMAGING Diagnoses Acute bilateral low back pain with bilateral sciatica Injury of back, subsequent encounter Procedures XR SACRUM/COCCYX 3V AP/LAT RADEX SACRUM & COCCYX MINIMUM 2 VIEWS Michelle Wilcox MD [address] [place] [address] Phone: tel: fax: [place] [address] Referral ID Status Reason Start Date Expiration Date V isits Requested Visits Authorized [id number] Closed Auto-Generate d Referral 03/13/2025 04/12/[address] [facility] Summary Purpose Family History No Family History Records Found Relationship Condition Age at Onset Recorded Date/T kevin mother Asthma Unknown Arthritis Unknown Malignant neoplasm of lung Unknown Osteoporosis Unknown Disorder of thyroid Unknown Advance Directives No Advanced Directives Records FoundDocuments on File Type Date Recorded Patient Portfolio Architect Expl anation Advance Directives and Living Will Power of Back Pad Inspector Documents on File Type Date Recorded Patient Portfolio Architect Expl anation ACP-Advance Directive ACP-Power of Back Pad Inspector Documents on File Type Date Recorded Patient Portfolio Architect Expl anation ACP-Advance Directive ACP-Power of Back Pad Inspector Documents on File Type Date Recorded Patient Portfolio Architect Expl anation Advance Directive(s) 12/12/2016 8:21 AM Advance Directive(s) 03/01/2016 7:56 AM Advance Directive(s) 02/14/2016 11:07 AM Advance Directive(s) 02/14/2016 11:30 AM Documents on File Type Date Recorded Patient Portfolio Architect Expl anation Advance Directive(s) 12/12/2016 8:21 AM Advance Directive(s) 03/01/2016 7:56 AM Advance Directive(s) 02/14/2016 11:07 AM Advance Directive(s) 02/14/2016 11:30 AM Advance Directive Response Recorded Date/ Time Advance Directives No December 12:35pm Living Will No April 16, 2022 4 :51pm Power of Back Pad Inspector No April 16, 2022 4:51pm Advance Directive Response Recorded Date/ Time Advance Directives No December 12:35pm Living Will No May 10, 2022 11:07am Power of Back Pad Inspector No May 10 11:07am Documents on File Type Date Recorded Patient Portfolio Architect Expl anation Advance Directive(s) 06/06/2022 12:17 PM Advance Directive(s) 12/12/2016 8:21 AM Advance Directive(s) 03/01/2016 7:56 AM Advance Directive(s) 02/14/2016 11:07 AM Advance Directive(s) 02/14/2016 11:30 AM Documents on File Type Date Recorded Patient Portfolio Architect Expl anation Advance Directive(s) 06/06/2022 12:17 PM Advance Directive(s) 12/12/2016 8:21 AM Advance Directive(s) 03/01/2016 7:56 AM Advance Directive(s) 02/14/2016 11:07 AM Advance Directive(s) 02/14/2016 11:30 AM Advance Directive Response Recorded Date/ Time Advance Directives No December 11:35am Living Will No December 19 5:14pm Power of Back Pad Inspector No December 19, 2023 5:14pm Advance Directive Response Recorded Date/ Time Advance Directives No December 12:35pm Living Will No January 30, 2024 11:17am Power of Back Pad Inspector No January 29 11:17am Advance Directive Response Recorded Date/ Time Advance Directives No December 12:35pm Living Will No January 30, 2024 5:55pm Power of Back Pad Inspector No January 29 5:55pm Advance Directive Response Recorded Date/ Time Do you have a Healthcare Power of Back Pad Inspector? No March 28, 2025 10:27am Advance Directives No December 12:35pm Discharge Instructions * Instructions* Venkata Linares, - 06/18/2020 Rest. Ice 15 minutes every 4-6 hours. Return if any problems or concerns * Attachments The following attachments cannot be sent through Care Everywhere. * Head Injury (Cuban) documented in this encounter* Instructions* Adeola Vogel DO - 12/26/2020 Call your doctor in the morning and schedule follow-up. Our psychiatry team will call you tomorrow to schedule an appointment, call them or Call [facility] (contact information enclosed) if you do not hear from them by lunchtime tomorrow. Do not drive home and do not drive, climb or operate machinery while taking Ativan. Return to the emergency department for any thoughts of self-harm or harming anybody else, or if any other problems arise. * Attachments The following attachments cannot be sent through Care Everywhere. * Anxiety Disorder (Cuban) * Video: Anxiety: How to Change Anxious Thoughts (Cuban) * Video: Anxiety: Treatment Options (Cuban) * Hyperventilation (Cuban) documented in this encounter Assessments Diagnosis Facial contusion, initial encounter Contusion of neck, initial encounter Diagnosis Hyperventilation syndrome- Primary Respiratory malfunction arising from mental factors Anxiety state Anxiety state, unspecified Uncomplicated asthma, unspecified asthma severity, unspecified whether persistent Reason for Referral Status Reason Specialty Diagnoses / Procedures Referred By Contact Referred To Contact Open Specialty Services Required Psychology Diagnoses Hyperventilation syndrome Anxiety state Adeola Vogel DO [address] [place] [address] [address] [place] [address] [place] [address] Scheduling Instructions [facility] [place] [address] [place], [place] [address] Status Reason Specialty Diagnoses / Procedures Referred By Contact Referred To Contact Open Specialty Services Required Orthopedic Surgery: Hand Surgery / Orthopedic Surgery Diagnoses Closed boxer's fracture, initial encounter Adeola Vogel DO [address] [place] [address] [facility] [facility] [address] [address] [place] [address] Scheduling Instructions [facility] Orthopedics Hand/Wrist Upper Extremities - [facility] [address] [place] [address] Specialty Diagnoses / Procedures Referred By Contac t Referred To Contact Diagnoses Urinary tract infection without hematuria, site unspecified Michelle Wilcox MD [address] [place] [address] Referral ID Status Reason Start Date Expiration Date Visits Re quested Visits Authorized [id number] Closed 1 1 Specialty Diagnoses / Procedures Referred By Contac t Referred To Contact Diagnoses Kidney stones Michelle Wilcox MD [address] [place] [address] Referral ID Status Reason Start Date Expiration Date Visits Re quested Visits Authorized [id number] Closed 1 1 Specialty Diagnoses / Procedures Referred By Contac t Referred To Contact US IMAGING Diagnoses Kidney stones Procedures US KIDNEY/BLADDER US RETROPERITONEAL REAL TIME W/IMAGE COMPLETE Michelle Wilcox MD [address] [place] [address] Us Imaging Referral ID Status Reason Start Date Expiration Date Visits Requested Visits Authorized [id number] Pending Review Auto-Generat ed Referral 04/19/2022 05/19/2023 1 1 Referral ID Status Reason Start Date Expiration Date V isits Requested Visits Authorized [id number] Authorized 03/26/2022 05/10/2022 1 1 Specialty Diagnoses / Procedures Referred By Contac t Referred To Contact CT IMAGING Diagnoses Left lower quadrant pain Left upper quadrant abdominal pain Procedures CT ABD/PEL W IVCON CT ABD & PELVIS W/CONTRAST Michelle Wilcox MD [address] [place] [address] Ct Imaging Referral ID Status Reason Start Date Expiration Date Visits Requested Visits Authorized [id number] Additional Clinical Info Needed Auto-Generat ed Referral 05/20/2022 06/19/2023 2 2 Referral ID Status Reason Start Date Expiration Date Visits Requested Visits Authorized [id number] Authorized Auto-Generat ed Referral 05/20/2022 07/20/2022 2 2 Specialty Diagnoses / Procedures Referred By Contac t Referred To Contact CT IMAGING Diagnoses Left flank pain Abnormal US (ultrasound) of abdomen Procedures CT FLANK WO IVCON CT ABD & PELVIS W/O CONTRAST Divina Mejias OUTBOARD TECHNICIAN.CEMENT DESPATCH OPERATOR [address] [place] [address] [place] [address] Referral ID Status Reason Start Date Expiration Date Visits Requested Visits Authorized [id number] Authorized Auto-Generat ed Referral Patient Cleared - Admin/Chairm an/Director advise to proceed or did not respond 02/25/2024 04/22/2024 2 2 Specialty Diagnoses / Procedures Referred By Contac t Referred To Contact Urology Diagnoses Left flank pain Renal calculus Procedures CONSULT TO UROLOGY OFFICE/OUTPATIENT [facility] 60 MINUTES Vaughn Shrestha, OUTBOARD TECHNICIAN.RESIDENTIAL CHILD CARE COUNSELOR [address] [place] [address] Referral ID Status Reason Start Date Expiration Date Visits Requested Visits Authorized [id number] Authorized PCP Requested Referral 02/25/2024 02/24/2025 1 1 Specialty Diagnoses / Procedures Referred By Contac t Referred To Contact CT IMAGING Diagnoses Closed fracture of left foot, initial encounter Procedures CT FOOT WO IVCON LEFT CT LOWER EXTREMITY W/O CONTRAST MATERIAL [address]ón [place] [address] [place] [address] Referral ID Status Reason Start Date Expiration Date V isits Requested Visits Authorized [id number] Closed Auto-Generate d Referral 04/22/2024 06/21/2024 1 1 Specialty Diagnoses / Procedures Referred By Contac t Referred To Contact Orthopedics Diagnoses Cut of finger Procedures CONSULT TO ORTHOPAEDICS OFFICE/OUTPATIENT [facility] 60 MINUTES Michelle Wilcox MD [address] [place] [address] Referral ID Status Reason Start Date Expiration Date Visits Requested Visits Authorized [id number] Authorized PCP Requested Referral 07/03/2024 07/03/2025 1 1 Specialty Diagnoses /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 regulations: The Federal rules restrict any use of the information to criminally investigate or prosecute any alcohol or drug abuse patient.[facility] HospitalIn the event this information is protected by the Federal Confidentiality of Alcohol and Drug Abuse Patient Records regulations: The Federal rules restrict any use of the information to criminally investigate or prosecute any alcohol or drug abuse patient.[facility] HospitalIn the event this information is protected by the Federal Confidentiality of Alcohol and Drug Abuse Patient Records regulations: The Federal rules restrict any use of the information to criminally investigate or prosecute any alcohol or drug abuse patient.[facility] HospitalIn the event this information is protected by the Federal Confidentiality of Alcohol and Drug Abuse Patient Records regulations: The Federal rules restrict any use of the information to criminally investigate or prosecute any alcohol or drug abuse patient.[facility] HospitalIn the event this information is protected by the Federal Confidentiality of Alcohol and Drug Abuse Patient Records regulations: The Federal rules restrict any use of the information to criminally investigate or prosecute any alcohol or drug abuse patient.[facility] HospitalIn the event this information is protected by the Federal Confidentiality of Alcohol and Drug Abuse Patient Records regulations: The Federal rules restrict any use of the information to criminally investigate or prosecute any alcohol or drug abuse patient.[facility] HospitalIn the event this information is protected by the Federal Confidentiality of Alcohol and Drug Abuse Patient Records regulations: The Federal rules restrict any use of the information to criminally investigate or prosecute any alcohol or drug abuse patient.[facility] HospitalIn the event this information is protected by the Federal Confidentiality of Alcohol and Drug Abuse Patient Records regulations: The Federal rules restrict any use of the information to criminally investigate or prosecute any alcohol or drug abuse patient.[facility] HospitalIn the event this information is protected by the Federal Confidentiality of Alcohol and Drug Abuse Patient Records regulations: The Federal rules restrict any use of the information to criminally investigate or prosecute any alcohol or drug abuse patient.[facility] HospitalIn the event this information is protected by the Federal Confidentiality of Alcohol and Drug Abuse Patient Records regulations: The Federal rules restrict any use of the information to criminally investigate or prosecute any alcohol or drug abuse patient.[facility] HospitalIn the event this information is protected by the Federal Confidentiality of Alcohol and Drug Abuse Patient Records regulations: The Federal rules restrict any use of the information to criminally investigate or prosecute any alcohol or drug abuse patient.[facility] HospitalIn the event this information is protected by the Federal Confidentiality of Alcohol and Drug Abuse Patient Records regulations: The Federal rules restrict any use of the information to criminally investigate or prosecute any alcohol or drug abuse patient.[facility] HospitalIn the event this information is protected by the Federal Confidentiality of Alcohol and Drug Abuse Patient Records regulations: The Federal rules restrict any use of the information to criminally investigate or prosecute any alcohol or drug abuse patient.[facility] HospitalIn the event this information is protected by the Federal Confidentiality of Alcohol and Drug Abuse Patient Records regulations: The Federal rules restrict any use of the information to criminally investigate or prosecute any alcohol or drug abuse patient.[facility] HospitalIn the event this information is protected by the Federal Confidentiality of Alcohol and Drug Abuse Patient Records regulations: The Federal rules restrict any use of the information to criminally investigate or prosecute any alcohol or drug abuse patient.[facility] HospitalIn the event this information is protected by the Federal Confidentiality of Alcohol and Drug Abuse Patient Records regulations: The Federal rules restrict any use of the information to criminally investigate or prosecute any alcohol or drug abuse patient.[facility] HospitalIn the event this information is protected by the Federal Confidentiality of Alcohol and Drug Abuse Patient Records regulations: The Federal rules restrict any use of the information to criminally investigate or prosecute any alcohol or drug abuse patient.[facility] HospitalIn the event this information is protected by the Federal Confidentiality of Alcohol and Drug Abuse Patient Records regulations: The Federal rules restrict any use of the information to criminally investigate or prosecute any alcohol or drug abuse patient.[facility] HospitalIn the event this information is protected by the Federal Confidentiality of Alcohol and Drug Abuse Patient Records regulations: The Federal rules restrict any use of the information to criminally investigate or prosecute any alcohol or drug abuse patient.[facility] HospitalIn the event this information is protected by the Federal Confidentiality of Alcohol and Drug Abuse Patient Records regulations: The Federal rules restrict any use of the information to criminally investigate or prosecute any alcohol or drug abuse patient.[facility] HospitalIn the event this information is protected by the Federal Confidentiality of Alcohol and Drug Abuse Patient Records regulations: The Federal rules restrict any use of the information to criminally investigate or prosecute any alcohol or drug abuse patient.[facility] HospitalIn the event this information is protected by the Federal Confidentiality of Alcohol and Drug Abuse Patient Records regulations: The Federal rules restrict any use of the information to criminally investigate or prosecute any alcohol or drug abuse patient.[facility] HospitalIn the event this information is protected by the Federal Confidentiality of Alcohol and Drug Abuse Patient Records regulations: The Federal rules restrict any use of the information to criminally investigate or prosecute any alcohol or drug abuse patient.[facility] HospitalIn the event this information is protected by the Federal Confidentiality of Alcohol and Drug Abuse Patient Records regulations: The Federal rules restrict any use of the information to criminally investigate or prosecute any alcohol or drug abuse patient.[facility] HospitalIn the event this information is protected by the Federal Confidentiality of Alcohol and Drug Abuse Patient Records regulations: The Federal rules restrict any use of the information to criminally investigate or prosecute any alcohol or drug abuse patient.[facility] Care Teams (unrecognized sec tion and content) Features Editor Relationship Specialty Start Date End Date Michelle Wilcox MD [address] [facility] [place] [address] PCP - General Internal Medicine 03/21/17 Features Editor Relationship Specialty Start Date End Date Michelle Wilcox MD [address] [facility] [place] [address] PCP - General Internal Medicine 03/21/17 Features Editor Relationship Specialty Start Date End Date Michelle Wilcox MD [address] [place] [address] PCP - General Internal Medicine 03/21/17 Features Editor Relationship Specialty Start Date End Date Michelle Wilcox MD [address] [facility] [place] [address] PCP - General Internal Medicine 03/21/17 Features Editor Relationship Specialty Start Date End Date Michelle Wilcox MD [address] [facility] [place] [address] PCP - General Internal Medicine 03/21/17 Features Editor Relationship Specialty Start Date End Date Michelle Wilcox MD [address] [facility] [place] [address] PCP - General Internal Medicine 03/21/17 Features Editor Relationship Specialty Start Date End Date Michelle Wilcox MD [address] [facility] [place] [address] PCP - General Internal Medicine 03/21/17 Features Editor Relationship Specialty Start Date End Date Michelle Wilcox MD [address] [place] [address] PCP - General Internal Medicine 03/21/17 Features Editor Relationship Specialty Start Date End Date Michelle Wilcox MD [address] [facility] [place] [address] PCP - General Internal Medicine 03/21/17 Features Editor Relationship Specialty Start Date End Date Michelle Wilcox MD [address] [facility] [place] [address] PCP - General Internal Medicine 03/21/17 Features Editor Relationship Specialty Start Date End Date Michelle Wilcox MD [address] [facility] [place] [address] PCP - General Internal Medicine 03/21/17 Features Editor Relationship Specialty Start Date End Date Michelle Wilcox MD [address] [facility] [place] [address] PCP - General Internal Medicine 03/21/17 Features Editor Relationship Specialty Start Date End Date Michelle Wilcox MD [address] [facility] [place] [address] PCP - General Internal Medicine 03/21/17 Team Status: Active Member Role Status Dates Dr. Michelle Wilcox MD Family Provider Active Dr. Michelle Wilcox MD Primary Care Provider Active Team Status: Inactive Member Role Status Dates Dr. Michelle Wilcox MD Primary Care Provider Active Dr. Eliezer Banks DO Emergency Provider Active Features Editor Relationship Specialty Start Date End Date Michelle Wilcox MD [address] [facility] [place] [address] PCP - General Internal Medicine 03/21/17 Features Editor Relationship Specialty Start Date End Date Michelle Wilcox MD [address] [facility] [place] [address] PCP - General Internal Medicine 03/21/17 Team Status: Inactive Member Role Status Dates Dr. Michelle Wilcox MD Primary Care Provider Active Dr. Eliezer Banks DO Attending Provider, Emergency Provider Active Team Status: Active Member Role Status Dates Dr. Michelle Wilcox MD Primary Care Provider Active Dr. Wild Pollard DO Emergency Provider Active Dr. Demetrius Ibanez DO Admit Provider, Attending Provider Active Team Status: Active Member Role Status Dates Dr. Michelle Wilcox MD Primary Care Provider Active Dr. Wild Pollard , Emergency Provider Active Dr. Demetrius Ibanez , DO Admit Provider, Other Pro vider Active Dr. Augustine Blair MD Other Provider Active Dr. Maame Bergman MD Attending Provider, Other Prov ider Active Team Status: Inactive Member Role Status Dates Dr. Michelle Wilcox MD Primary Care Provider Active Dr. Wild Pollard , Emergency Provider Active Dr. Demetrius Ibanez , DO Admit Provider, Other Pro vider Active Dr. Augustine Blair MD Other Provider Active Dr. Maame Bergman MD Attending Provider Active Features Editor Relationship Specialty Start Date End Date Michelle Wilcox MD [address] [place] [address] PCP - General Internal Medicine 03/21/17 Features Editor Relationship Specialty Start Date End Date Michelle Wilcox MD [address] [place] [address] PCP - General Internal Medicine 03/21/17 Features Editor Relationship Specialty Start Date End Date Michelle Wilcox MD [address] [place] [address] PCP - General Internal Medicine 03/21/17 Features Editor Relationship Specialty Start Date End Date Michelle Wilcox MD [address] [place] [address] PCP - General Internal Medicine 03/21/17 Features Editor Relationship Specialty Start Date End Date Michelle Wilcox MD [address] [place] [address] PCP - General Internal Medicine 03/21/17 Features Editor Relationship Specialty Start Date End Date Michelle Wilcox MD [address] [place] [address] PCP - General Internal Medicine 03/21/17 Features Editor Relationship Specialty Start Date End Date Michelle Wilcox MD [address] [place] [address] PCP - General Internal Medicine 03/21/17 Features Editor Relationship Specialty Start Date End Date Michelle Wilcox MD [address] [place] [address] PCP - General Internal Medicine 03/21/17 Features Editor Relationship Specialty Start Date End Date Michelle Wilcox MD [address] [place] [address] PCP - General Internal Medicine 03/21/17 Features Editor Relationship Specialty Start Date End Date Michelle Wilcox MD [address] [place] [address] PCP - General Internal Medicine 03/21/17 Features Editor Relationship Specialty Start Date End Date Michelle Wilcox MD [address] [place] [address] PCP - General Internal Medicine 03/21/17 Features Editor Relationship Specialty Start Date End Date Michelle Wilcox MD [address] [place] [address] PCP - General Internal Medicine 03/21/17 Features Editor Relationship Specialty Start Date End Date Michelle Wilcox MD [address] [place] [address] PCP - General Internal Medicine 03/21/17 Features Editor Relationship Specialty Start Date End Date Michelle Wilcox MD [address] [place] [address] PCP - General Internal Medicine 03/21/17 Features Editor Relationship Specialty Start Date End Date Michelle Wilcox MD [address] [place] [address] PCP - General Internal Medicine 03/21/17 Features Editor Relationship Specialty Start Date End Date Michelle Wilcox MD [address] [place] [address] PCP - General Internal Medicine 03/21/17 Features Editor Relationship Specialty Start Date End Date Michelle Wilcox MD [address] [place] [address] PCP - General Internal Medicine 03/21/17 Features Editor Relationship Specialty Start Date End Date Michelle Wilcox MD [address] [place] [address] PCP - General Internal Medicine 03/21/17 Features Editor Relationship Specialty Start Date End Date Michelle Wilcox MD [address] [place] [address] PCP - General Internal Medicine 03/21/17 Features Editor Relationship Specialty Start Date End Date Michelle Wilcox MD [address] [place] [address] PCP - General Internal Medicine 03/21/17 Features Editor Relationship Specialty Start Date End Date Michelle Wilcox MD [address] [place] [address] PCP - General Internal Medicine 03/21/17 Features Editor Relationship Specialty Start Date End Date Michelle Wilcox MD [address] [facility] [place] [address] PCP - General Internal Medicine 03/21/17 Features Editor Relationship Specialty Start Date End Date Michelle Wilcox MD [address] [facility] [place] [address] PCP - General Internal Medicine 03/21/17 Features Editor Relationship Specialty Start Date End Date Michelle Wilcox MD [address] [place] [address] PCP - General Internal Medicine 03/21/17 Features Editor Relationship Specialty Start Date End Date Michelle Wilcox MD [address] [facility] [place] [address] PCP - General Internal Medicine 03/21/17 Features Editor Relationship Specialty Start Date End Date Michelle Wilcox MD [address] [facility] [place] [address] PCP - General Internal Medicine 03/21/17 Features Editor Relationship Specialty Start Date End Date Michelle Wilcox MD [address] [place] [address] PCP - General Internal Medicine 03/21/17 Features Editor Relationship Specialty Start Date End Date Michelle Wilcox MD [address] [facility] [place] [address] PCP - General Internal Medicine 03/21/17 Cezar Romo, JEFFC [address] [place] [address] Phlebotomist Family Medicine 10/19/24 Divina Mejias APRN.CEMENT DESPATCH OPERATOR [address] [place] [address] Phlebotomist Internal Medicine 10/19/24 Robert Brewer PA-C [address] [place] [address] Phlebotomist Family Medicine 10/19/24 Features Editor Relationship Specialty Start Date End Date Michelle Wilcox MD [address] [place] [address] PCP - General Internal Medicine 03/21/17 Cezar Romo PA-C [address] [place] [address] [id number] [phone] Phlebotomist Family Medicine 10/19/24 Divina Mejias APRN.CEMENT DESPATCH OPERATOR [address] [place] [address] Phlebotomist Internal Medicine 10/19/24 Robert Brewer PA-C [address] [place] [address] [facility] Features Editor Relationship Specialty Start Date End Date Michelle Wilcox MD [address] [place] [address] PCP - General Internal Medicine 03/21/17 Cezar Romo PA-C [address] [place] [address] Phlebotomist Family Medicine 10/19/24 Divina Mejias APRN.CEMENT DESPATCH OPERATOR [address] [place] [address] Phlebotomist Internal Medicine 10/19/24 Robert Brewer PA-C [address] [place] [address] Phlebotomist Family [facility] 10/19/24 Features Editor Relationship Specialty Start Date End Date Michelle Wilcox MD [address] [place] [address] PCP - General Internal Medicine 03/21/17 Cezar Romo PA-C [address] [place], [place] [id number] [phone] Phlebotomist Family [facility] 10/19/24 Divina Mejias APRN.CEMENT DESPATCH OPERATOR [address] [place] [address] Phlebotomist Internal Medicine 10/19/24 Robert Brewer PA-C [address] [place] [address] [facility] 10/19/24 Features Editor Relationship Specialty Start Date End Date Michelle Wilcox MD [address] [place] [address] PCP - General Internal Medicine 03/21/17 Cezar Romo PA-C [address] [place] [address] Phlebotomist Family [facility] 10/19/24 Divina Mejias APRN.CEMENT DESPATCH OPERATOR [address] [place] [address] Phlebotomist Internal Medicine 10/19/24 Robert Brewer PA-C [address] [place] [address] Phlebotomist Family [facility] 10/19/24 Features Editor Relationship Specialty Start Date End Date Michelle Wilcox MD [address] [place] [address] PCP - General Internal Medicine 03/21/17 Cezar Romo PA-C [address] [place] [id number] Phlebotomist Family Medicine 10/19/24 Divina Mejias APRN.CEMENT DESPATCH OPERATOR [address] [place] [address] Phlebotomist Internal Medicine 10/19/24 Robert Brewer PA-C [address] [place] [address] Phlebotomist Family Medicine 10/19/24 Features Editor Relationship Specialty Start Date End Date Michelle Wilcox MD [address] [place] [address] PCP - General Internal Medicine 03/21/17 Cezar Romo PA-C [address] [place] [address] Phlebotomist Family Medicine 10/19/24 Divina Mejias APRN.CEMENT DESPATCH OPERATOR [address] [place] [address] Phlebotomist Internal Medicine 10/19/24 Robert Brewer PA-C [address] [place] [address] Phlebotomist Family [facility] 10/19/24 Features Editor Relationship Specialty Start Date End Date Michelle Wilcox MD [address] [place] [address] PCP - General Internal Medicine 03/21/17 Cezar Romo PA-C [address] [place] [address] Phlebotomist Family Medicine 10/19/24 Divina Mejias APRN.CEMENT DESPATCH OPERATOR [address] [place] [address] Phlebotomist Internal Medicine 10/19/24 Robert Brewer PA-C [address] [place] [address] Phlebotomist Family Medicine 10/19/24 Features Editor Relationship Specialty Start Date End Date Michelle Wilcox MD [address] [place] [address] PCP - General Internal Medicine 03/21/17 Divina Mejias APRN.CEMENT DESPATCH OPERATOR [address] [place] [address] Phlebotomist Internal Medicine 10/19/24 Features Editor Relationship Specialty Start Date End Date Michelle Wilcox MD [address] [place] [address] PCP - General Internal Medicine 03/21/17 Divina Mejisa APRN.CEMENT DESPATCH OPERATOR [address] [place] [address] Phlebotomist Internal Medicine 10/19/24 Features Editor Relationship Specialty Start Date End Date Michelle Wilcox MD [address] [facility], [place] [address] PCP - General Internal Medicine 03/21/17 Divina Mejias APRN.CEMENT DESPATCH OPERATOR [address] [facility], [place] [address] Phlebotomist Internal Medicine 10/19/24 Features Editor Relationship Specialty Start Date End Date Michelle Wilcox MD [address] [facility], [place] [address] PCP - General Internal Medicine 03/21/17 Divina Mejias APRN.CEMENT DESPATCH OPERATOR [address] [facility] [place] [address] Phlebotomist Internal Medicine 10/19/24 Features Editor Relationship Specialty Start Date End Date Michelle Wilcox MD [address] [facility] [place] [address] PCP - General Internal Medicine 03/21/17 Divina Mejias APRN.CEMENT DESPATCH OPERATOR [address] [facility] [place] [address] Phlebotomist Internal Medicine 10/19/24 Team Status: Active Member Role Status Dates Dr. Michelle Wilcox MD Primary Care Provider Active Team Status: Inactive Member Role Status Dates Dr. Michelle Wilcox MD Primary Care Provider Active Start: March 28, 2025 End: March 28, 2025 Dr. Marcin Lozano DO Emergency Provider Active Start : March 28, 2025 End: March 28, 2025 Features Editor Relationship Specialty Start Date End Date Michelle Wilcox MD [address] [facility], [place] [address] PCP - General Internal Medicine 03/21/17 Divina Mejias, OUTBOARD TECHNICIAN.CEMENT DESPATCH OPERATOR [address] [place], [place] [address] Phlebotomist Internal Medicine 10/19/24 Features Editor Relationship Specialty Start Date End Date Michelle Wilcox MD [address] [place], [place] [address] PCP - General Internal Medicine 03/21/17 Divina Mejias OUTBOARD TECHNICIAN.CEMENT DESPATCH OPERATOR [address] [place], [place] [address] Phlebotomist Internal Medicine 10/19/24 Features Editor Relationship Specialty Start Date End Date Michelle Wilcox MD [address] [place], [place] [address] PCP - General Internal Medicine 03/21/17 Divina Mejias, OUTBOARD TECHNICIAN.CEMENT DESPATCH OPERATOR [address] [place], [place] [address] Phlebotomist Internal Medicine 10/19/24 Features Editor Relationship Specialty Start Date End Date Michelle Wilcox MD [address] [place], [place] [address] PCP - General Internal Medicine 03/21/17 Divina Mejias, OUTBOARD TECHNICIAN.CEMENT DESPATCH OPERATOR [address] [place], [place] [address] Phlebotomist Internal Medicine 10/19/24 Goals (unrecognized section and content) Goals may be documented in a n alternate sectionGoals may be documented in an alternate sectionGoals may be documented in an alternate sectionGoals may be documented in an alternate section Inactive Administered Medications - up to 3 most recent administrations Administered Medications (un recognized section and content) Medication Order MAR Action Action Date Dose Rate Site keTORolac 60 mg injection (Toradol) 60 mg, INTRAMUSCULAR, ONCE, 1 dose, On 01/21/24 at 1530, Ketorolac (Toradol) is indicated for the short-term (up to 5 days) management of moderately severe acute pain. Continuation of ketorolac (Toradol) beyond 5 days increases the risk of developing serious adverse events. Please verify the duration of therapy for ketorolac (Toradol)., If ordered PRN for pain, patient/guardian may elect to receive this medication for higher pain levels INSTEAD of the opioid, if preferred: Yes Given 01/21/2024 3:26 PM EDT 60 mg Arm, Left FOR RECORDS PERTAINING TO PATIENTS WHO ARE OR HAVE BEEN ENROLLED IN A CHEMICAL DEPENDENCY/SUBSTANCEABUSE PROGRAM, SOME INFORMATION MAY BE OMITTED. This clinical summary was aggregated from multiple sources. Caution should be exercised in using it in the provision of clinical care. This summary normalizes information from multiple sources, and as a consequence, information in this document may materially change the coding, format and clinical context of patient data. In addition, data may be omitted in some cases. CLINICAL DECISIONS SHOULD BE BASED ON THE PRIMARY CLINICAL RECORDS. [employer] provides no warranty or guarantee of the accuracy or completeness of information in this document.
--- NOTE | 2025-10-02 21:27 | RAD_ITS ---
PROCEDURE: RIBS UNI MIN 3V W/PA CHEST 10/02/2025 REASON FOR EXAM: PAIN TECHNIQUE: Procedure Code: RADRIB Modality: DX Procedure: RIBS UNI MIN 3V W/PA CHEST LATERALITY: RIGHT COMPARISON: Chest x-ray 01/30/2024 FINDINGS: Lungs/Pleura: Clear. No pneumothorax or pleural effusion. Heart/Mediastinum: Normal in size. Bones/Soft tissues: Unremarkable. RAD/Ribs Uni Min 3V w/PA Chest IMPRESSION: No acute findings. Reading Location: [id number]
[2025-10-02 22:13] VITALS: BP 97/69; PULSE 66; O2SAT 100
[2025-10-02 22:30] VITALS: BP 97/69; PULSE 66; RESP 18; TEMP 36.8; O2SAT 100
--- NOTE | 2025-10-02 22:37 | ED.RN ---
This RN to bedside to discharge pt. Pt states naproxen causes stomach aches, requesting what she had here instead. this RN relayed information to Dr. Medina. Dr Medina states that d/t pts job, narcotics would not be appropriate and that ibuprofen could be ordered instead. Pt educated. Pt states that is what my doctor and you guys have prescribed in the past because of my job. 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 this RN again educated pt that it is unsafe to drive or operate heavy machinery while receiving narcotics and it is not recommended. Pt states I would rather take my own ibuprofen at home. That naproxen makes me sick.
== END 2025-10-02 22:39 | disposition home or self-care (01) ==
PROVIDERS: Emergency Provider Emergency Medicine; PCP Internal Medicine; Visit Provider Emergency Medicine
DX: S20.211A Contusion of right front wall of thorax, initial encounter (principal); Z90.710 Acquired absence of both cervix and uterus; Z90.49 Acquired absence of other specified parts of digestive tract; F17.290 Nicotine dependence, other tobacco product, uncomplicated; X58.XXXA Exposure to other specified factors, initial encounter
CPT/HCPCS: 71101; 99282